=== PATIENT | female | born 1955 | race Caucasian/White ===

== ENCOUNTER 2016-09-16 16:33 | Emergency (ER) | payer MEDICAID ==
[2016-09-16] MEDS ORDERED: IBUPROFEN 600 MG TABLET PO ONE (17:18)
--- NOTE | 2016-09-16 17:18 | ER Document Report ---
ED Medical Screen (RME) - General Chief Complaint: High Blood Sugar Stated Complaint: WEAKNESS Mode of Arrival: Ambulatory Information source: Patient Notes: Patient is complaining of high blood sugar for the past 4 days. She states today she started passing out and endorses LOC x3 episodes today. Her meters have been reading "HIGH." She would give herself Humalog on a sliding scale and 40 U of Lantus in the morning but she is still unable to get her sugars under control. She states she has n't had much to eat or drink anything for the past few days. Endorses nausea, decreased energy and generalized weakness but denies fever, chills, vomiting, diarrhea. TRAVEL OUTSIDE OF THE [place] IN LAST 30 DAYS: No - Related Data Allergies/Adverse Reactions: No Known Drug Allergies Allergy (Mild, Verified 09/16/16 16:51) Past Medical History - Social History Chew tobacco use (# tins/day): No Frequency of alcohol use: None Drug Abuse: None Family history: None - pt adopted - Past Medical History Cardiac Medical History: Denies: Hx Congestive Heart Failure, Hx DVT, Hx Heart Attack, Hx Hypercholesterolemia, Hx Hypertension, Hx Pulmonary Embolism Pulmonary Medical History: Reports: Hx Bronchitis, Hx COPD, Hx Pneumonia Neurological Medical History: Reports: Hx Migraine Endocrine Medical History: Reports: Hx Diabetes Mellitus Type 1, Hx Diabetes Mellitus Type 2. Denies: Hx Hyperthyroidism, Hx Hypothyroidism Malignancy Medical History: Reports: Hx Ovarian Cancer, Hx Skin Cancer GI Medical History: Reports: Hx Gastroesophageal Reflux Disease, Hx Ulcer. Denies: Hx Cirrhosis, Hx Hepatitis Musculoskeltal Medical History: Reports Hx Arthritis, Reports Hx Multiple Sclerosis, Reports Hx Musculoskeletal Deformity, Reports Hx Musculoskeletal Trauma Skin Medical History: Reports Hx Psoriasis Psychiatric Medical History: Reports: Hx Anxiety, Hx Depression - denies homicidal/suicidal ideation Traumatic Medical History: Reports: Hx Fractures - Bilateral humerus Infectious Medical History: Reports: Hx C-Diff. Denies: Hx Hepatitis Past Surgical History: Reports: Hx Genitourinary Surgery - Bladder, Hx Orthopedic Surgery - Right wrist, Hx Tubal Ligation - Immunizations Immunizations up to date: Yes Hx Diphtheria, Pertussis, Tetanus Vaccination: Yes Review of Systems - Review of Systems Constitutional: See HPI Gastrointestinal: See HPI Physical Exam - Vital signs Vitals: Temp Pulse Resp BP Pulse Ox 98.2 F 130 H 24 H 117/78 98 09/16/16 16:44 01/02/17 16:44 09/16/16 16:44 09/16/16 16:44 09/16/16 16:44 - Notes Notes: General: alert and oriented, speaking in full sentences. No respiratory distress. Course - Re-evaluation Re-evalutation: 09/16/16 17:17 Accucheck at 1655 read "HIGH" Ordered labs. Patient remains alert and oriented. - Vital Signs Vital signs: Temp Pulse Resp BP Pulse Ox 98.2 F 130 H 24 H 117/78 98 09/16/16 16:44 09/16/16 16:44 09/16/16 16:44 09/16/16 16:44 09/16/16 16:44
[2016-09-16 18:35] LABS: ALANINE AMINOTRANSFERASE 34 U/L (9-52); ALBUMIN 4.6 g/dL (3.5-5.0); ALKALINE PHOSPHATASE 193 U/L (38-126); ANION GAP 18 (5-19); ASPARTATE AMINO TRANSFERASE 20 U/L (14-36); BILIRUBIN,TOTAL 0.6 mg/dL (0.2-1.3); BLOOD UREA NITROGEN 24 mg/dL (7-20); CALCIUM 10.6 mg/dL (8.4-10.2); CARBON DIOXIDE 22 mmol/L (22-30); CHLORIDE 88 mmol/L (98-107); CREATININE RESULT 0.69 mg/dL (0.52-1.25); TOTAL PROTEIN 8.1 g/dL (6.3-8.2)
[2016-09-16 18:42] LABS: ABSOLUTE BASOPHILS # (AUTO) 0.1 10^3/uL (0.0-0.2); ABSOLUTE EOSINOPHILS # (AUTO) 0.1 10^3/uL (0.0-0.6); ABSOLUTE LYMPHOCYTES (AUTO) 3.2 10^3/uL (0.5-4.7); ABSOLUTE MONOCYTES (AUTO) 1.1 10^3/uL (0.1-1.4); ABSOLUTE NEUT (AUTO) 6.8 10^3/uL (1.7-8.2); BASOPHILS % (AUTO) 0.8 % (0-2); EOSINOPHILS % (AUTO) 1.1 % (0-6); HEMATOCRIT 47.3 % (36.0-47.0); HEMOGLOBIN 14.7 g/dL (12.0-15.5); HGB HCT DIFFERENCE -3.2; LYMPHOCYTES % (AUTO) 28.2 % (13-45); MEAN CORPUSCULAR HEMOGLOBIN 25.6 pg (27.0-33.4); MEAN CORPUSCULAR HGB CONC 31.2 g/dL (32.0-36.0); MEAN CORPUSCULAR VOLUME 82 fl (80-97); MONOCYTES % (AUTO) 9.9 % (3-13); RED BLOOD COUNT 5.76 10^6/uL (3.72-5.28); RED CELL DISTRIBUTION WIDTH 17.7 % (11.5-14.0); WHITE BLOOD COUNT 11.3 10^3/uL (4.0-10.5)
[2016-09-16 18:44] LABS: GLUCOSE 697 mg/dL (75-110)
[2016-09-16 19:00] LABS: APPEARANCE,URINE CLEAR; BILIRUBIN,URINE NEGATIVE (NEGATIVE); GLUCOSE, URINE >=500 mg/dL (NEGATIVE); KETONES,URINE NEGATIVE (NEGATIVE); LEUKOCYTE ESTERASE,URINE NEGATIVE (NEGATIVE); NITRITE,URINE NEGATIVE (NEGATIVE); PROTEIN,URINE NEGATIVE (NEGATIVE); URINE SPECIFIC GRAVITY 1.029; UROBILINOGEN,URINE NEGATIVE mg/dL (<2.0)
[2016-09-16] MEDS ORDERED: NORMAL SALINE 1000 ML 1,000 ML IV ONE ×2 (19:20)
--- NOTE | 2016-09-16 19:25 | ER Document Report ---
ED General - General Chief Complaint: High Blood Sugar Stated Complaint: WEAKNESS Time seen by provider: 19:20 Mode of Arrival: Ambulatory Notes: Is a 60-year-old female that comes emergency department for chief complaint of feeling lightheaded and having no appetite for about 4 days, she states she is a type II diabetic insulin-dependent and is taking her medications, states that she has had blurry vision in fallen to the ground on 2 occasions today, she denies any head injury, she states she remembers the events. She denies fever, reports generalized mild abdominal pain, she denies cough or shortness of breath , denies chest pain. She reports intermittent diarrhea, has struggled in the past for C. difficile colitis. Patient states she took 20 units of regular insulin before she came. TRAVEL OUTSIDE OF THE [place] IN LAST 30 DAYS: No - Related Data Allergies/Adverse Reactions: No Known Drug Allergies Allergy (Mild, Verified 09/16/16 16:51) Past Medical History - General Information source: Patient - Social History Smoking Status: Never Smoker Chew tobacco use (# tins/day): No Frequency of alcohol use: None Drug Abuse: None Lives with: Alone Family History: Reviewed & Not Pertinent Patient has suicidal ideation: No Patient has homicidal ideation: No - Past Medical History Cardiac Medical History: Denies: Hx Congestive Heart Failure, Hx DVT, Hx Heart Attack, Hx Hypercholesterolemia, Hx Hypertension, Hx Pulmonary Embolism Pulmonary Medical History: Reports: Hx Bronchitis, Hx COPD, Hx Pneumonia Neurological Medical History: Reports: Hx Migraine Endocrine Medical History: Reports: Hx Diabetes Mellitus Type 1, Hx Diabetes Mellitus Type 2. Denies: Hx Hyperthyroidism, Hx Hypothyroidism Malignancy Medical History: Reports: Hx Ovarian Cancer, Hx Skin Cancer GI Medical History: Reports: Hx Gastroesophageal Reflux Disease, Hx Ulcer. Denies: Hx Cirrhosis, Hx Hepatitis Musculoskeltal Medical History: Reports Hx Arthritis, Reports Hx Multiple Sclerosis, Reports Hx Musculoskeletal Deformity, Reports Hx Musculoskeletal Trauma Skin Medical History: Reports Hx Psoriasis Psychiatric Medical History: Reports: Hx Anxiety, Hx Depression - denies homicidal/suicidal ideation Traumatic Medical History: Reports: Hx Fractures - Bilateral humerus Infectious Medical History: Reports: Hx C-Diff. Denies: Hx Hepatitis Past Surgical History: Reports: Hx Genitourinary Surgery - Bladder, Hx Orthopedic Surgery - Right wrist, Hx Tubal Ligation - Immunizations Immunizations up to date: Yes Hx Diphtheria, Pertussis, Tetanus Vaccination: Yes Hx Pneumococcal Vaccination: 06/15/13 Review of Systems - Review of Systems Constitutional: No symptoms reported EENT: No symptoms reported Cardiovascular: No symptoms reported Respiratory: No symptoms reported Gastrointestinal: See HPI Genitourinary: No symptoms reported Female Genitourinary: No symptoms reported Musculoskeletal: No symptoms reported Skin: No symptoms reported Hematologic/Lymphatic: No symptoms reported Neurological/Psychological: See HPI Physical Exam - Vital signs Vitals: Temp Pulse Resp BP Pulse Ox 98.2 F 130 H 24 H 117/78 98 09/16/16 16:44 09/16/16 16:44 09/16/16 16:44 09/16/16 16:44 09/16/16 16:44 Interpretation: Normal - General General appearance: Appears well, Alert In distress: None - HEENT Head: Normocephalic, Atraumatic Eyes: Normal Conjunctiva: Normal Extraocular movements intact: Yes Eyelashes: Normal Pupils: PERRL Nasal: Normal Mouth/Lips: Normal Mucous membranes: Normal Pharynx: Normal Neck: Normal - Respiratory Respiratory status: No respiratory distress Chest status: Nontender Breath sounds: Normal. No: Decreased air movement, Wheezing Chest palpation: Normal - Cardiovascular Rhythm: Regular, Tachycardia Heart sounds: Normal auscultation, S1 appreciated, S2 appreciated Murmur: No - Abdominal Inspection: Normal Distension: No distension Bowel sounds: Normal Tenderness: Nontender. No: Tender, Guarding Organomegaly: No organomegaly - Back Back: Normal, Nontender. 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 Soft benign abdomen. CBC unremarkable. CMP shows hyperglycemia at 697, however bicarbonate and anion gap both normal, no ketones in the urine, patient reports she is given herself 20 units of regular insulin 10 minutes before arrival. As a result patient was given 2 L fluid boluses, afterwards tachycardia resolved, glucose quickly downtrending, patient states she feels great. Patient is now asking to leave, states she has a ride here and she is unwilling to stay any longer. Patient was given lidocaine patch for a muscle pain in her mid upper back, she requests more of these, patient will also be given nausea medication, I discussed return precautions, patient states she will take her insulin at home and return for any concerning symptoms. 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 Please return to the emergency department for any concerning or worsening symptoms. Prescriptions: Lidocaine [Lidoderm 5% (700 mg) Transdermal Patch] 1 patch TP DAILY #30 adh..patch Ondansetron [Zofran Odt 4 mg Tablet] 1 - 2 tab PO Q4H PRN #15 tab.rapdis PRN Reason: For Nausea/Vomiting Referrals: GIUSEPPE WHITE MD [Primary Care Provider] - Follow up as needed
[2016-09-16] MEDS ORDERED: INSULIN REG, HUMAN 100 UNIT/ML 3 ML VIAL (PYX) SUBCUT ONE (19:29)
[2016-09-16] MEDS ORDERED: LIDOCAINE 5% (700 MG) TRANSDERMAL ADH..PATCH TP ONE (19:31)
[2016-09-16 21:55] VITALS: BP 115/79
== END 2016-09-16 21:50 | disposition home or self-care (01) ==
LOC: ER 16:33
DX: E11.65 Type 2 diabetes mellitus with hyperglycemia (principal); R42 Dizziness and giddiness; R53.1 Weakness; R19.7 Diarrhea, unspecified; H53.8 Other visual disturbances; G35 Multiple sclerosis; J44.9 Chronic obstructive pulmonary disease, unspecified; Z79.4 Long term (current) use of insulin; Z85.43 Personal history of malignant neoplasm of ovary; Z85.828 Personal history of other malignant neoplasm of skin; Z98.51 Tubal ligation status
CPT/HCPCS: 99285; 96360; 36415; 82962; 85025; 80053; 81001; J3490 ×2; J7030

== ENCOUNTER → 2016-09-18 | Outpatient (CLI) | payer MEDICAID | LOC: RAD 16:13 | PROVIDERS: ATTEND Family Medicine | DX: M54.5 Low back pain (principal); M54.6 Pain in thoracic spine | CPT/HCPCS: 72070; 72110 ==

== ENCOUNTER 2016-10-21 15:28 | Inpatient (IN) | payer SELFPAY ==
[2016-10-21] MEDS ORDERED: ONDANSETRON 4 MG TAB.RAPDIS PO ONE (16:27)
[2016-10-21] MEDS ORDERED: NORMAL SALINE 1000 ML 1,000 ML IV ONE ×2 (16:27→18:11)
--- NOTE | 2016-10-21 16:29 | ER Document Report ---
Addendum entered and electronically signed by CAT DON NP 10/21/16 16:32 : Course - Re-evaluation Re-evalutation: 10/21/16 16:31 extension service specialist in charge advised of pt status - Vital Signs Vital signs: Temp Pulse Resp BP Pulse Ox 97.3 F 125 H 20 154/110 H 100 10/21/16 16:12 10/21/16 16:12 10/21/16 16:12 10/21/16 16:12 10/21/16 16:12 Original Note: ED Medical Screen (RME) - General Stated Complaint: BLOOD SUGAR PROBLEM Mode of Arrival: Wheelchair Information source: Patient Notes: Patient reports that blood sugar has been reading high for the past several days. Patient also reports abdominal pain. Patient complains of nausea and vomiting. Patient denies any fever. Accu check in triage reads "Hi" hx: Diabetes I have greeted and performed a rapid initial assessment of this patient. A comprehensive ED assessment and evaluation of the patient, analysis of test results and completion of the medical decision making process will be conducted by additional ED providers. TRAVEL OUTSIDE OF THE [place] IN LAST 30 DAYS: No - Related Data Allergies/Adverse Reactions: No Known Drug Allergies Allergy (Mild, Verified 09/16/16 16:51) Past Medical History - Social History Family history: None - pt adopted - Past Medical History Cardiac Medical History: Denies: Hx Congestive Heart Failure, Hx DVT, Hx Heart Attack, Hx Hypercholesterolemia, Hx Hypertension, Hx Pulmonary Embolism Pulmonary Medical History: Reports: Hx Bronchitis, Hx COPD, Hx Pneumonia Neurological Medical History: Reports: Hx Migraine Endocrine Medical History: Reports: Hx Diabetes Mellitus Type 1, Hx Diabetes Mellitus Type 2. Denies: Hx Hyperthyroidism, Hx Hypothyroidism Malignancy Medical History: Reports: Hx Ovarian Cancer, Hx Skin Cancer GI Medical History: Reports: Hx Gastroesophageal Reflux Disease, Hx Ulcer. Denies: Hx Cirrhosis, Hx Hepatitis Musculoskeltal Medical History: Reports Hx Arthritis, Reports Hx Multiple Sclerosis, Reports Hx Musculoskeletal Deformity, Reports Hx Musculoskeletal Trauma Skin Medical History: Reports Hx Psoriasis Psychiatric Medical History: Reports: Hx Anxiety, Hx Depression - denies homicidal/suicidal ideation Traumatic Medical History: Reports: Hx Fractures - Bilateral humerus Infectious Medical History: Reports: Hx C-Diff. Denies: Hx Hepatitis Past Surgical History: Reports: Hx Genitourinary Surgery - Bladder, Hx Orthopedic Surgery - Right wrist, Hx Tubal Ligation - Immunizations Immunizations up to date: Yes Hx Diphtheria, Pertussis, Tetanus Vaccination: Yes Physical Exam - Vital signs Vitals: Temp Pulse Resp BP Pulse Ox 97.3 F 125 H 20 154/110 H 100 10/21/16 16:12 10/21/16 16:12 10/21/16 16:12 10/21/16 16:12 10/21/16 16:12 - Cardiovascular Rhythm: Tachycardia Heart sounds: S1 appreciated, S2 appreciated Course - Vital Signs Vital signs: Temp Pulse Resp BP Pulse Ox 97.3 F 125 H 20 154/110 H 100 10/21/16 16:12 10/21/16 16:12 10/21/16 16:12 10/21/16 16:12 10/21/16 16:12
[2016-10-21 17:17] LABS: VENOUS BLOOD BASE EXCESS -6.7 mmol/L; VENOUS BLOOD HCO3 18.5 mmol/L (20-32); VENOUS BLOOD PCO2 36.2 mmHg (35-63); VENOUS BLOOD PH 7.33 (7.30-7.42)
[2016-10-21 17:21] LABS: ABSOLUTE LYMPHOCYTES (AUTO) 1.2 10^3/uL (0.5-4.7); ABSOLUTE MONOCYTES (AUTO) 0.6 10^3/uL (0.1-1.4); ABSOLUTE NEUT (AUTO) 6.3 10^3/uL (1.7-8.2); BASOPHILS % (AUTO) 0.2 % (0-2); EOSINOPHILS % (AUTO) 0.4 % (0-6); HEMATOCRIT 43.7 % (36.0-47.0); HEMOGLOBIN 13.5 g/dL (12.0-15.5); HGB HCT DIFFERENCE -3.2; LYMPHOCYTES % (AUTO) 15.2 % (13-45); MEAN CORPUSCULAR VOLUME 84 fl (80-97); MONOCYTES % (AUTO) 7.6 % (3-13); RED BLOOD COUNT 5.21 10^6/uL (3.72-5.28); RED CELL DISTRIBUTION WIDTH 17.8 % (11.5-14.0); SEGMENTED NEUTROPHILS % (AUTO) 76.6 % (42-78); WHITE BLOOD COUNT 8.2 10^3/uL (4.0-10.5)
[2016-10-21 17:23] LABS: APPEARANCE,URINE CLEAR; BILIRUBIN,URINE NEGATIVE (NEGATIVE); GLUCOSE, URINE >=500 mg/dL (NEGATIVE); KETONES,URINE NEGATIVE (NEGATIVE); LEUKOCYTE ESTERASE,URINE NEGATIVE (NEGATIVE); NITRITE,URINE NEGATIVE (NEGATIVE); PROTEIN,URINE NEGATIVE (NEGATIVE); URINE SPECIFIC GRAVITY 1.028; UROBILINOGEN,URINE NEGATIVE mg/dL (<2.0)
[2016-10-21 17:29] LABS: ALANINE AMINOTRANSFERASE 22 U/L (9-52); ALBUMIN 4.1 g/dL (3.5-5.0); ALKALINE PHOSPHATASE 161 U/L (38-126); ANION GAP 16 (5-19); ASPARTATE AMINO TRANSFERASE 17 U/L (14-36); BILIRUBIN,TOTAL 0.5 mg/dL (0.2-1.3); BLOOD UREA NITROGEN 9 mg/dL (7-20); CALCIUM 9.8 mg/dL (8.4-10.2); CARBON DIOXIDE 19 mmol/L (22-30); CHLORIDE 94 mmol/L (98-107); LIPASE 42.1 U/L (23-300); POTASSIUM 4.4 mmol/L (3.6-5.0); TOTAL PROTEIN 7.5 g/dL (6.3-8.2)
[2016-10-21 17:40] LABS: CREATINE KINASE MB 0.38 ng/mL (<4.55)
[2016-10-21 17:43] LABS: TROPONIN I < 0.012 ng/mL
[2016-10-21 17:52] LABS: CREATINE KINASE < 20 U/L (30-135)
[2016-10-21 18:01] LABS: GLUCOSE 710 mg/dL (75-110)
[2016-10-21] MEDS ORDERED: INSULIN REG, HUMAN 100 UNIT/ML 3 ML VIAL (PYX) SUBCUT ONE (18:11)
[2016-10-21] MEDS ORDERED: NORMAL SALINE 1000 ML 1,000 ML IV PRN ×2 (18:11→18:16)
--- NOTE | 2016-10-21 18:13 | ER Document Report ---
ED General - General Chief Complaint: High Blood Sugar Stated Complaint: BLOOD SUGAR PROBLEM Mode of Arrival: Wheelchair Information source: Patient Notes: 60-year-old diabetic female history of hyperosmolar state as well as DKA presents with a blood sugar of 700+. Patient notes she has been vomiting all day. Denies any fevers or chills admits to nausea admits to generalized body aches Patient has had multiple similar episodes in the past states she is taking her medications as prescribed TRAVEL OUTSIDE OF THE [place] IN LAST 30 DAYS: No - HPI Onset: Just prior to arrival Onset/Duration: Sudden Quality of pain: Achy Severity: Mild Pain Level: 1 Associated symptoms: Body/muscle aches, Nausea, Vomiting Exacerbated by: Denies Relieved by: Denies Similar symptoms previously: Yes Recently seen / treated by doctor: Yes - Related Data Allergies/Adverse Reactions: No Known Drug Allergies Allergy (Mild, Verified 09/16/16 16:51) Home Medications: Current Home Medications Acidoph/L.bulg/Bif.b/S.thermop [Bacid Caplet] 1 each PO BID 10/21/16 [History] Clobetasol Propionate/Emoll [Clobetasol Emollient 0.05% Crm] 1 applic TP BID 03/01 [History] Etanercept [Enbrel] 50 mg SQ FR@1000 10/21/16 [History] Ferrous Sulfate [Iron] 325 mg PO DAILY 10/21/16 [History] Insulin Glargine,Hum.rec.anlog [Lantus Insulin Inj 300 Unit/3 ml Pen] 35 unit SUBCUT QAM 10/21/16 [History] Insulin Lispro [Humalog Insulin 100 Unit/1 ml 3 ml Vial] 0 unit SUBCUT AC [History] Ipratropium/Albuterol Sulfate [Combivent Respimat 4 gm Mdi] 1 puff IH Q12 [History] Montelukast Sodium [Singulair 10 mg Tablet] 10 mg PO DAILY 10/21/16 [History] Omeprazole Magnesium [Prilosec Otc] 20 mg PO BID 10/21/16 [History] Ondansetron [Zofran Odt 4 mg Tablet] 1 tab PO Q4HP PRN 10/21/16 [History] Oxycodone HCl/Acetaminophen [Percocet 5-325 mg Tablet] 1 tab PO Q4HP PRN [History] Past Medical History - General Information source: Patient - Social History Smoking Status: Current Every Day Smoker Cigarette use (# per day): No Chew tobacco use (# tins/day): No Smoking Education Provided: No Family History: Reviewed & Not Pertinent Patient has suicidal ideation: No Patient has homicidal ideation: No - Past Medical History Cardiac Medical History: Denies: Hx Congestive Heart Failure, Hx DVT, Hx Heart Attack, Hx Hypercholesterolemia, Hx Hypertension, Hx Pulmonary Embolism Pulmonary Medical History: Reports: Hx Bronchitis, Hx COPD, Hx Pneumonia Neurological Medical History: Reports: Hx Migraine Endocrine Medical History: Reports: Hx Diabetes Mellitus Type 1, Hx Diabetes Mellitus Type 2. Denies: Hx Hyperthyroidism, Hx Hypothyroidism Renal/ Medical History: Denies: Hx Peritoneal Dialysis Malignancy Medical History: Reports: Hx Ovarian Cancer, Hx Skin Cancer GI Medical History: Reports: Hx Gastroesophageal Reflux Disease, Hx Ulcer. Denies: Hx Cirrhosis, Hx Hepatitis Musculoskeltal Medical History: Reports Hx Arthritis, Reports Hx Multiple Sclerosis, Reports Hx Musculoskeletal Deformity, Reports Hx Musculoskeletal Trauma Skin Medical History: Reports Hx Psoriasis Psychiatric Medical History: Reports: Hx Anxiety, Hx Depression - denies homicidal/suicidal ideation Traumatic Medical History: Reports: Hx Fractures - Bilateral humerus Infectious Medical History: Reports: Hx C-Diff. Denies: Hx Hepatitis Past Surgical History: Reports: Hx Genitourinary Surgery - Bladder, Hx Orthopedic Surgery - Right wrist, Hx Tubal Ligation - Immunizations Immunizations up to date: Yes Hx Diphtheria, Pertussis, Tetanus Vaccination: Yes Hx Pneumococcal Vaccination: 06/15/13 Review of Systems - Review of Systems Notes: REVIEW OF SYSTEMS: CONSTITUTIONAL : Denies fever, chills, or sweats. Denies recent illness. EENT: Denies eye, ear, throat, or mouth pain or symptoms. Denies nasal or sinus congestion or discharge. Denies throat, tongue, or mouth swelling or difficulty swallowing. CARDIOVASCULAR: Denies chest pain. Denies palpitations or racing or irregular heart beat. Denies ankle edema. RESPIRATORY: Denies cough, cold, or chest congestion. Denies shortness of breath, difficulty breathing, or wheezing. GASTROINTESTINAL: Admits to nausea vomiting GENITOURINARY: Denies difficulty urinating, painful urination, burning, frequency, blood in urine, or discharge. FEMALE GENITOURINARY: Denies vaginal bleeding, heavy or abnormal periods, irregular periods. Denies vaginal discharge or odor. MUSCULOSKELETAL: Denies back or neck pain or stiffness. Denies joint pain or swelling. SKIN: Denies rash, lesions or sores. HEMATOLOGIC : Denies easy bruising or bleeding. LYMPHATIC: Denies swollen, enlarged glands. NEUROLOGICAL: Denies confusion or altered mental status. Denies passing out or loss of consciousness. Denies dizziness or lightheadedness. Denies headache. Denies weakness or paralysis or loss of use of either side. Denies problems with gait or speech. Denies sensory loss, numbness, or tingling. Denies seizures. PSYCHIATRIC: Denies anxiety or stress. Denies depression, suicidal ideation, or homicidal ideation. ALL OTHER SYSTEMS REVIEWED AND NEGATIVE. Dictation was performed using [id number] voice recognition software PHYSICAL EXAMINATION: GENERAL: Ill-appearing female mild acute distress HEAD: Atraumatic, normocephalic. EYES: Pupils equal round and reactive to light, extraocular movements intact, conjunctiva are normal. ENT: Nares patent, oropharynx clear without exudates. Moist mucous membranes. NECK: Normal range of motion, supple without lymphadenopathy LUNGS: Breath sounds clear to auscultation bilaterally and equal. No wheezes rales or rhonchi. HEART: Regular rate and rhythm without murmurs ABDOMEN: Soft, nontender, nondistended abdomen. No guarding, no rebound. No masses appreciated. Female : deferred Musculoskeletal: Normal range of motion, no pitting or edema. No cyanosis. NEUROLOGICAL: Cranial nerves grossly intact. Normal speech, normal gait. Normal sensory, motor exams PSYCH: Normal mood, normal affect. SKIN: Warm, Dry, normal turgor, no rashes or lesions noted. Physical Exam - Vital signs Vitals: Temp Pulse Resp BP Pulse Ox 97.3 F 125 H 20 154/110 H 100 10/21/16 16:12 10/21/16 16:12 10/21/16 16:12 10/21/16 16:12 10/21/16 16:12 Course - Re-evaluation Re-evalutation: 10/21/16 21:32 Initial blood sugar was 710, patient was given 30 units of insulin IV fluids, I will admit the patient to the hospitalist service given history of DKA and hyperosmolar state - Vital Signs Vital signs: Temp Pulse Resp BP Pulse Ox 97.3 F 125 H 14 154/110 H 100 10/21/16 16:12 10/21/16 16:12 10/21/16 20:14 10/21/16 16:12 10/21/16 20:14 - Laboratory Result Diagrams: 10/21/16 16:55 10/21/16 16:55 Laboratory results interpreted by me: 10/21/16 10/21/16 10/21/16 16:55 16:55 16:55 MCH 26.0 L MCHC 31.0 L RDW 17.8 H VBG HCO3 Sodium 129.0 L Chloride 94 L Carbon Dioxide 19 L Creatinine 0.50 L Glucose 710 H* Alkaline Phosphatase 161 H Creatine Kinase < 20 L Urine Glucose (UA) >=500 H 10/21/16 16:55 MCH MCHC RDW VBG HCO3 18.5 L Sodium Chloride Carbon Dioxide Creatinine Glucose Alkaline Phosphatase Creatine Kinase Urine Glucose (UA) Critical Care Note - Critical Care Note Total time excluding time spent on procedures (mins): 34 Comments: 34 minutes of critical care time spent in direct contact evaluating and reevaluating the patient, treating symptoms, reviewing labs and studies and speaking with family and consultants excluding any procedures Discharge - Discharge Clinical Impression: Hyperosmolar non-ketotic state in patient with type 2 diabetes mellitus, Tachycardia Nausea & vomiting Qualifiers: Vomiting type: unspecified Vomiting Intractability: non-intractable Qualified Code(s): R11.2 - Nausea with vomiting, unspecified Hypertension Qualifiers: Hypertension type: essential hypertension Qualified Code(s): I10 - Essential ( primary) hypertension Condition: Stable Disposition: ADMITTED INPATIENT Admitting Provider: Hospitalist Unit Admitted: Telemetry
[2016-10-21] MEDS ORDERED: ONDANSETRON HCL INJ/PF 4 MG/2 ML SDV IV ONE ×3 (18:15→22:15)
[2016-10-21] MEDS ORDERED: ACETAMINOPHEN 325 MG TABLET PO PRN (18:16)
[2016-10-21] MEDS ORDERED: ONDANSETRON HCL INJ/PF 4 MG/2 ML SDV IV PRN (18:16)
[2016-10-21] MEDS ORDERED: MORPHINE SULFATE 10 MG/ML INJ IV ONE (18:16)
[2016-10-21] MEDS ORDERED: KETOROLAC TROMETHAMINE INJ/PF 30 MG/1 ML SDV IV ONE ×2 (18:17→22:15)
--- NOTE | 2016-10-21 18:18 | EKG REPORT ---
SEVERITY:- ABNORMAL ECG - SINUS TACHYCARDIA RIGHT ATRIAL ABNORMALITY : Confirmed by: Luis Alberto Walls MD 21-Oct-2016 18:17:03
[2016-10-21] MEDS ORDERED: INSULIN LISPRO 100 UNIT/ML 3 ML VIAL SUBCUT PRN (18:30)
[2016-10-21] MEDS ORDERED: DEXTROSE 40% GEL 15 GM TUBE PO PRN ×2 (18:30)
[2016-10-21] MEDS ORDERED: GLUCAGON,HUMAN RECOMB 1 MG INJ IM PRN (18:30)
[2016-10-21] MEDS ORDERED: DEXTROSE 50%-WATER 25 GM/50 ML DISP.SYRIN IV PRN ×2 (18:30)
[2016-10-21] MEDS ORDERED: MINERAL OIL ENEMA 133 ML PR ONE (19:04)
[2016-10-21] MEDS ORDERED: LACTULOSE SYRUP 20 GM/30 ML UDCUP PO ONE (21:30)
[2016-10-21] MEDS ORDERED: LANSOPRAZOLE 15 MG TAB.RAP.DR PO SCH (22:00)
[2016-10-21] MEDS ORDERED: METOCLOPRAMIDE HCL INJ/PF 10 MG/2 ML SDV IV SCH (22:00)
[2016-10-21] MEDS ORDERED: LACTOBACILLUS ACIDOPHILUS 250 MG TAB PO SCH (22:00)
[2016-10-21] MEDS ORDERED: PANTOPRAZOLE SODIUM 40 MG VIAL IV SCH (22:00)
[2016-10-22] MEDS ORDERED: IPRATROPIUM/ALBUTEROL 120 PUFF/4 GM MDI IH SCH
[2016-10-22] MEDS ORDERED: MORPHINE SULFATE 10 MG/ML INJ IV PRN (04:44)
[2016-10-22] MEDS ORDERED: MAGNESIUM CITRATE 296 ML BOTTLE PO ONE (04:46)
--- NOTE | 2016-10-22 04:58 | PDOC H&P ---
History of Present Illness Admission Date/PCP: 10/21/16 18:18 [facility] History of Present Illness: JAMES MORRIS is a 60 year old female with a history of chronic back pain, opiate dependence, diabetes mellitus with multiple admissions for HHNS, DKA, and abdominal pain related to chronic constipation and C. difficile who presents to the emergency department with a couple of days of high blood sugar on her meter. She reports she's been taking her insulin but is just been consistently reading high. Patient reports that She has not had a bowel movement for several days to weeks. She does report some dysuria. She is referred for dental service for blood sugar issues. Past Medical History Cardiac Medical History: Denies: Congestive Heart Failure, DVT, Myocardial Infarction, Hyperlipidema, Hypertension, Pulmonary Embolism Pulmonary Medical History: Reports: Bronchitis, Chronic Obstructive Pulmonary Disease (COPD), Pneumonia Neurological Medical History: Reports: Migraine Endocrine Medical History: Reports: Diabetes Mellitus Type 1, Diabetes Mellitus Type 2 Denies: Hyperthyroidism, Hypothyroidism Malignancy Medical History: Reports: Ovarian Cancer, Skin Cancer GI Medical History: Reports: Gastroesophageal Reflux Disease Denies: Cirrhosis, Hepatitis Musculoskeltal Medical History: Reports: Arthritis Skin Medical History: Reports: Psoriasis Psychiatric Medical History: Reports: Depression - denies homicidal/suicidal ideation Hematology: Reports: Anemia Denies: Hemophilia, Sickle Cell Disease Infectious Medical History: Reports: Clostridium Difficile Past Surgical History Past Surgical History: Reports: Orthopedic Surgery - Right wrist, Tubal Ligation Denies: Amputation Social History Smoking Status: Current Every Day Smoker Frequency of Alcohol Use: None Hx Recreational Drug Use: No Drugs: None Hx Prescription Drug Abuse: No - Advance Directive Resuscitation Status: Full Code Surrogate healthcare decision maker:: Crystal, daughter Family History Family History: Reviewed & Not Pertinent Parental Family History Reviewed: Yes - patient grew up in orphanage Children Family History Reviewed: Yes Sibling(s) Family History Reviewed.: Yes Medication/Allergy Home Medications: Acidoph/L.bulg/Bif.b/S.thermop [Bacid Caplet] 1 each PO BID 10/21/16 Clobetasol Propionate/Emoll [Clobetasol Emollient 0.05% Crm] 1 applic TP BID 03/01 Etanercept [Enbrel] 50 mg SQ FR@1000 10/21/16 Ferrous Sulfate [Iron] 325 mg PO DAILY 10/21/16 Insulin Glargine,Hum.rec.anlog [Lantus Insulin Inj 300 Unit/3 ml Pen] 35 unit SUBCUT QAM 10/21/16 Insulin Lispro [Humalog Insulin 100 Unit/1 ml 3 ml Vial] 0 unit SUBCUT AC Ipratropium/Albuterol Sulfate [Combivent Respimat 4 gm Mdi] 1 puff IH Q12 Montelukast Sodium [Singulair 10 mg Tablet] 10 mg PO DAILY 10/21/16 Omeprazole Magnesium [Prilosec Otc] 20 mg PO BID 10/21/16 Ondansetron [Zofran Odt 4 mg Tablet] 1 tab PO Q4HP PRN 10/21/16 Oxycodone HCl/Acetaminophen [Percocet 5-325 mg Tablet] 1 tab PO Q4HP PRN Allergies/Adverse Reactions: No Known Drug Allergies Allergy (Mild, Verified 09/16/16 16:51) Review of Systems Constitutional: PRESENT: chills. ABSENT: fever(s), headache(s), weight gain, weight loss Eyes: ABSENT: visual disturbances Ears: ABSENT: hearing changes Cardiovascular: ABSENT: chest pain, dyspnea on exertion, edema, orthropnea, palpitations Respiratory: PRESENT: cough, sputum. ABSENT: dyspnea, hemoptysis Gastrointestinal: PRESENT: abdominal pain, constipation, nausea, vomiting. ABSENT: diarrhea, hematemesis, hematochezia, melena Genitourinary: ABSENT: dysuria, hematuria Musculoskeletal: PRESENT: back pain - Chronic. ABSENT: joint swelling Integumentary: PRESENT: rash - Chronic psoriasis. ABSENT: wounds Neurological: ABSENT: abnormal gait, abnormal speech, confusion, dizziness, focal weakness, syncope Psychiatric: ABSENT: anxiety, depression, homidical ideation, suicidal ideation Endocrine: ABSENT: cold intolerance, heat intolerance, polydipsia, polyuria Hematologic/Lymphatic: ABSENT: easy bleeding, easy bruising Physical Exam Vital Signs: Temp Pulse Resp BP Pulse Ox 97.3 F 125 H 19 143/81 H 98 10/21/16 16:12 10/21/16 16:12 10/21/16 22:01 10/21/16 22:00 10/21/16 22:01 General appearance: PRESENT: no acute distress, well-developed, well-nourished Head exam: PRESENT: atraumatic, normocephalic Eye exam: PRESENT: conjunctiva pink, EOMI, PERRLA. ABSENT: scleral icterus Ear exam: PRESENT: normal external ear exam Mouth exam: PRESENT: dry mucosa, tongue midline Neck exam: ABSENT: JVD, lymphadenopathy, thyromegaly, tracheal deviation Respiratory exam: PRESENT: clear to auscultation megan, prolonged expiratory phas , tachypnea, unlabored. ABSENT: crackles, rales, rhonchi, wheezes Cardiovascular exam: PRESENT: RRR, +S1, +S2. ABSENT: diastolic murmur, gallop, rubs, systolic murmur Pulses: PRESENT: normal dorsalis pedis pul Vascular exam: PRESENT: normal capillary refill GI/Abdominal exam: PRESENT: normal bowel sounds, soft, tenderness - Generalized tenderness, other - Pain out of proportion to physical examination. ABSENT: distended, firm, guarding, mass, organolmegaly, rebound, rigid Rectal exam: PRESENT: deferred Extremities exam: PRESENT: full ROM. ABSENT: calf tenderness, clubbing, pedal edema Neurological exam: PRESENT: alert, awake, oriented to person, oriented to place , oriented to time, oriented to situation, CN II-XII grossly intact. ABSENT: motor sensory deficit Psychiatric exam: PRESENT: appropriate affect, normal mood. ABSENT: homicidal ideation, suicidal ideation Skin exam: PRESENT: dry, intact, rash - Plaque-like rash on extensor surface hands and elbows, warm. ABSENT: cyanosis Results Laboratory Results: 10/21/16 22:57 Troponin I < 0.012 Impressions: KUB X-Ray 10/21/16 00:00 IMPRESSION: NO RADIOGRAPHIC EVIDENCE FOR ACUTE ABDOMINAL DISEASE. Assessment & Plan - Diagnosis (1) Constipation due to opioid therapy Is this a current diagnosis for this admission?: YesPlan: We'll give patient lactulose and mineral oil enema. Will give her magnesium citrate if this has no results. Obtain KUB to evaluate for obstructionis negative proceed with cathartics. (2) Hyperosmolar non-ketotic state in patient with type 2 diabetes mellitus Is this a current diagnosis for this admission?: YesPlan: Patient very mildly in injection as. Will begin IV fluids and patient has already received Lantus in the emergency department. Will check Accu-Cheks with sliding scale every 6 hours. Patient does not quite meet for this diagnosis for DKA. However could quickly go into either. (3) Psoriasis Is this a current diagnosis for this admission?: Yes (4) Abdominal pain Qualifiers: Abdominal location: generalized Qualified Code(s): R10.84 - Generalized abdominal pain Is this a current diagnosis for this admission?: YesPlan: Secondary constipation. Will check you a for possible UTI. (5) Anxiety Is this a current diagnosis for this admission?: Yes (6) COPD (chronic obstructive pulmonary disease) Qualifiers: COPD type: unspecified COPD Qualified Code(s): J44.9 - Chronic obstructive pulmonary disease, unspecified Is this a current diagnosis for this admission?: YesPlan: Place on Combivent. Encourage smoking cessation. (7) Tobacco use disorder Is this a current diagnosis for this admission?: YesPlan: Nicotine patch. Patient has been advised to stop smoking (8) Opiate dependence Qualifiers: Substance use status: uncomplicated Qualified Code(s): F11.20 - Opioid dependence, uncomplicated Is this a current diagnosis for this admission?: YesPlan: We'll give small amount of opiates. This is likely exacerbating patient's underlying issues. - Time Time Spent: 50 to 70 Minutes Medications reviewed and adjusted accordingly: Yes Anticipated discharge: Home Within: within 48 hours
[2016-10-22] MEDS ORDERED: FERROUS SULFATE 325 MG TABLET PO SCH ×2 (05:00→10:00)
[2016-10-22 05:23] LABS: ABSOLUTE EOSINOPHILS # (AUTO) 0.1 10^3/uL (0.0-0.6); ABSOLUTE LYMPHOCYTES (AUTO) 1.7 10^3/uL (0.5-4.7); ABSOLUTE MONOCYTES (AUTO) 0.6 10^3/uL (0.1-1.4); ABSOLUTE NEUT (AUTO) 2.6 10^3/uL (1.7-8.2); BASOPHILS % (AUTO) 0.8 % (0-2); EOSINOPHILS % (AUTO) 2.6 % (0-6); HEMATOCRIT 35.6 % (36.0-47.0); HEMOGLOBIN 11.6 g/dL (12.0-15.5); HGB HCT DIFFERENCE -0.8; LYMPHOCYTES % (AUTO) 34.5 % (13-45); MEAN CORPUSCULAR HGB CONC 32.5 g/dL (32.0-36.0); MONOCYTES % (AUTO) 11.4 % (3-13); RED BLOOD COUNT 4.44 10^6/uL (3.72-5.28); RED CELL DISTRIBUTION WIDTH 17.4 % (11.5-14.0); SEGMENTED NEUTROPHILS % (AUTO) 50.7 % (42-78)
[2016-10-22] MEDS ORDERED: NICOTINE 7 MG/24 HR PATCH.TD24 ONE (05:34)
[2016-10-22 05:39] LABS: MEAN CORPUSCULAR VOLUME 80 fl (80-97)
[2016-10-22] MEDS ORDERED: ENOXAPARIN SODIUM INJ 40 MG/0.4 ML DISP.SYRIN SUBCUT SCH (08:00)
[2016-10-22] MEDS ORDERED: INSULIN GLARGINE,HUM.REC.ANLOG 300 UNIT/3 ML INSULN.PEN SUBCUT SCH (08:00)
[2016-10-22 08:09] VITALS: BP 151/95
[2016-10-22] MEDS ORDERED: LIDOCAINE 5% (700 MG) TRANSDERMAL ADH..PATCH TP SCH (10:00)
[2016-10-22] MEDS ORDERED: MONTELUKAST SODIUM 10 MG TABLET PO SCH (10:00)
[2016-10-22] MEDS ORDERED: NICOTINE 7 MG/24 HR PATCH.TD24 TD SCH (10:00)
[2016-10-22] MEDS ORDERED: SENNOSIDES/DOCUSATE 8.6-50 MG 1 EACH TABLET PO SCH (10:00)
[2016-10-22] MEDS ORDERED: (PENDING PHARMACY ID) (Clobetasol Propionate/Emoll [Clobetasol Emollient 0.05% Crm] 1 APPL TP SCH (10:00)
[2016-10-22] MEDS ORDERED: LACTOBACILLUS ACIDOPHILUS 250 MG TAB PO SCH (10:00)
[2016-10-22] MEDS ORDERED: DOCUSATE SODIUM 100 MG CAPSULE PO SCH (10:00)
--- NOTE | 2016-10-22 18:04 | PDOC DISCHARGE SUMMARY ---
General - Admit/Disc Date/PCP Admission Date/Primary Care Provider: 10/21/16 18:18 [facility] WHITE MD Discharge Date: 10/22/16 - Discharge Diagnosis (1) Hyperosmolar non-ketotic state in patient with type 2 diabetes mellitus Is this a current diagnosis for this admission?: Yes (2) Chronic pain Is this a current diagnosis for this admission?: Yes (3) Constipation due to opioid therapy Is this a current diagnosis for this admission?: Yes (4) Hypertension Is this a current diagnosis for this admission?: Yes (5) Psoriasis Is this a current diagnosis for this admission?: Yes (6) COPD (chronic obstructive pulmonary disease) Is this a current diagnosis for this admission?: Yes (7) Tobacco use disorder Is this a current diagnosis for this admission?: Yes - Additional Information Resuscitation Status: Full Code Discharge Diet: Cardiac, Diabetic Discharge Activity: Activity As Tolerated Home Medications: Acidoph/L.bulg/Bif.b/S.thermop [Bacid Caplet] 1 each PO BID 10/21/16 Clobetasol Propionate/Emoll [Clobetasol Emollient 0.05% Crm] 1 applic TP BID 03/01 Etanercept [Enbrel] 50 mg SQ FR@1000 10/21/16 Ferrous Sulfate [Iron] 325 mg PO DAILY 10/21/16 Insulin Lispro [Humalog Insulin (Lispro) 100 unit/mL] 0 unit SUBCUT AC 10/21/16 Ipratropium/Albuterol Sulfate [Combivent Respimat 4 gm Mdi] 1 puff IH Q12 Montelukast Sodium [Singulair 10 mg Tablet] 10 mg PO DAILY 10/21/16 Omeprazole Magnesium [Prilosec Otc] 20 mg PO BID 10/21/16 Ondansetron [Zofran Odt 4 mg Tablet] 1 tab PO Q4HP PRN 10/21/16 Oxycodone HCl/Acetaminophen [Percocet 5-325 mg Tablet] 1 tab PO Q4HP PRN Docusate Sodium [Colace 100 mg Capsule] 100 mg PO BID #60 capsule 10/22/16 Insulin Glargine,Hum.rec.anlog [Lantus Insulin 100 Unit/mL] 45 unit SUBCUT QAM insuln.pen 10/22/16 Lidocaine [Lidoderm 5% (700 mg) Transdermal Patch] 1 patch TP DAILY adh..patch 10/22/16 History of Present Illness Patient complains of: Elevated blood glucose History of Present Illness: JAMES MORRIS is a 60 year old female presents to the emergency department with undetectably high blood glucose readings. She had associated abdominal pain. Hospital Course Hospital Course: Patient was admitted for profound hyperglycemia. Blood glucose was controlled within 24 hours. Hemoglobin A1c was greater than 14.0 indicating poor outpatient control. Patient's Lantus was increased from 35 units daily to 45 units daily. She is advised to follow-up primary care provider for reevaluation. Patient is counseled on smoking cessation. Physical Exam Vital Signs: Temp Pulse Resp BP Pulse Ox 97.3 F 125 H 11 L 151/95 H 99 10/21/16 16:12 10/21/16 16:12 10/22/16 08:01 10/22/16 08:00 10/22/16 08:01 GENERAL: No acute distress HEENT: Conjunctiva clear, nonicteric, moist mucous membranes, no JVD, midline trachea RESPIRATORY: Clear to auscultation bilaterally, no wheezes, no rhonchi CARDIAC: Regular rate and rhythm, no murmurs/gallops/rubs ABDOMEN: Soft, nondistended, nontender, positive bowel sounds, no rebound, no guarding EXTREMETIES: No edema, cyanosis, clubbing NEUROLOGIC: Alert, oriented to person/place/time, CN's grossly intact, no focal deficits SKIN: No rash, wounds PSYCH: Normal mood, normal affect Results Laboratory Results: 10/22/16 05:08 10/22/16 10/22/16 05:08 05:08 WBC 5.0 RBC 4.44 Hgb 11.6 L Hct 35.6 L MCV 80 D MCH 26.0 L MCHC 32.5 RDW 17.4 H Plt Count 142 L Seg Neutrophils % 50.7 Lymphocytes % 34.5 Monocytes % 11.4 Eosinophils % 2.6 Basophils % 0.8 Absolute Neutrophils 2.6 Absolute Lymphocytes 1.7 Absolute Monocytes 0.6 Absolute Eosinophils 0.1 Absolute Basophils 0.0 Magnesium 1.7 10/21/16 10/22/16 22:57 05:08 Troponin I < 0.012 < 0.012 Impressions: KUB X-Ray 10/21/16 00:00 IMPRESSION: NO RADIOGRAPHIC EVIDENCE FOR ACUTE ABDOMINAL DISEASE. Qualifiers PATEINT BEING DISCHARGED WITH ANY OF THE FOLLOWING DIAGNOSIS?: No Plan Discharge Plan: Follow-up PCP LUIS. Time Spent: Less than 30 Minutes
== END 2016-10-22 09:10 | disposition home or self-care (01) | DRG 639 ==
LOC: ER 15:28 → EH 18:18
PROVIDERS: ADMIT Internal Medicine; ATTEND Internal Medicine
DX: E11.00 Type 2 diabetes mellitus with hyperosmolarity without nonketotic hyperglycemic-hyperosmolar coma (NKHHC) (principal); K59.03 Drug induced constipation; T40.605A Adverse effect of unspecified narcotics, initial encounter; I10 Essential (primary) hypertension; J44.9 Chronic obstructive pulmonary disease, unspecified; M54.9 Dorsalgia, unspecified; G89.29 Other chronic pain; G43.909 Migraine, unspecified, not intractable, without status migrainosus; L40.9 Psoriasis, unspecified; K21.9 Gastro-esophageal reflux disease without esophagitis; F17.200 Nicotine dependence, unspecified, uncomplicated; Z79.891 Long term (current) use of opiate analgesic; Z98.51 Tubal ligation status; Z79.4 Long term (current) use of insulin; Z85.43 Personal history of malignant neoplasm of ovary; Z85.828 Personal history of other malignant neoplasm of skin
CPT/HCPCS: 36415; 74000; 80053; 81001; 82550; 82553; 82803; 82962; 83036; 83690; 83735; 84484; 85025; 93005; 93010; 99291; J1815; J1885; J2405; J3490; J7030

== ENCOUNTER → 2016-11-19 | Outpatient (CLI) | payer MEDICAID | LOC: OD 14:51 | PROVIDERS: ATTEND Family Medicine | DX: J20.9 Acute bronchitis, unspecified (principal) | CPT/HCPCS: 71020 ==

== ENCOUNTER 2016-12-14 17:53 | Inpatient (IN) | payer MEDICAID ==
[2016-12-14] MEDS ORDERED: ONDANSETRON HCL INJ/PF 4 MG/2 ML SDV IV ONE (18:49)
--- NOTE | 2016-12-14 18:51 | ER Document Report ---
Doctor's Note Notes: 12/14/16 18:49 61-year-old female diabetic who takes multiple blood sugar medications and has a history of DKA is in the past presents with high blood sugar nausea and generalized malaise. Patient has not vomited notes that she feels worse in the last time she was here that she was admitted for Patient's blood sugar is noted to be high General: Ill-appearing female in no respiratory distress Heart: Tachycardic I have greeted and performed a rapid initial assessment of this patient. A comprehensive ED assessment and evaluation of the patient, analysis of test results and completion of the medical decision making process will be conducted by additional ED providers.
[2016-12-14] MEDS: NORMAL SALINE 1000 ML 1,000 ML IV PRN ×2 (19:22→22:29)
[2016-12-14 19:36] LABS: ABSOLUTE BASOPHILS # (AUTO) 0.1 10^3/uL (0.0-0.2); ABSOLUTE EOSINOPHILS # (AUTO) 0.2 10^3/uL (0.0-0.6); ABSOLUTE LYMPHOCYTES (AUTO) 1.9 10^3/uL (0.5-4.7); ABSOLUTE MONOCYTES (AUTO) 0.6 10^3/uL (0.1-1.4); ABSOLUTE NEUT (AUTO) 4.9 10^3/uL (1.7-8.2); BASOPHILS % (AUTO) 0.9 % (0-2); EOSINOPHILS % (AUTO) 2.4 % (0-6); HEMATOCRIT 42.2 % (36.0-47.0); HEMOGLOBIN 12.9 g/dL (12.0-15.5); HGB HCT DIFFERENCE -3.5; LYMPHOCYTES % (AUTO) 24.9 % (13-45); MEAN CORPUSCULAR HEMOGLOBIN 25.3 pg (27.0-33.4); MEAN CORPUSCULAR HGB CONC 30.5 g/dL (32.0-36.0); MEAN CORPUSCULAR VOLUME 83 fl (80-97); MONOCYTES % (AUTO) 7.6 % (3-13); RED BLOOD COUNT 5.09 10^6/uL (3.72-5.28); RED CELL DISTRIBUTION WIDTH 16.3 % (11.5-14.0); SEGMENTED NEUTROPHILS % (AUTO) 64.2 % (42-78); WHITE BLOOD COUNT 7.6 10^3/uL (4.0-10.5)
[2016-12-14] MEDS ORDERED: MORPHINE SULFATE 10 MG/ML INJ IV ONE (19:45)
--- NOTE | 2016-12-14 19:47 | ER Document Report ---
ED General - General Chief Complaint: High Blood Sugar Stated Complaint: BLOOD SUGAR ISSUE Mode of Arrival: Ambulatory Notes: 61 year old female with a past medical history of chronic pain opiate dependence , diabetes and several previous admissions for DKA and for HHNS who presents to the ER with abdominal pain and nausea vomiting for the past few days. She also complains of constipation. Her blood sugars have been out of control, but she reports compliance with insulin and states that she took 20units just [employer]. Denies chest pain shortness of breath or palpitations. TRAVEL OUTSIDE OF THE [place] IN LAST 30 DAYS: No - Related Data Allergies/Adverse Reactions: No Known Drug Allergies Allergy (Mild, Verified 12/14/16 17:58) Past Medical History - General Information source: Patient, [facility] Records - Social History Smoking Status: Unknown if Ever Smoked Family History: Reviewed & Not Pertinent Patient has suicidal ideation: No Patient has homicidal ideation: No - Past Medical History Cardiac Medical History: Denies: Hx Congestive Heart Failure, Hx DVT, Hx Heart Attack, Hx Hypercholesterolemia, Hx Hypertension, Hx Pulmonary Embolism Pulmonary Medical History: Reports: Hx Bronchitis, Hx COPD, Hx Pneumonia Neurological Medical History: Reports: Hx Migraine Endocrine Medical History: Reports: Hx Diabetes Mellitus Type 1, Hx Diabetes Mellitus Type 2. Denies: Hx Hyperthyroidism, Hx Hypothyroidism Renal/ Medical History: Denies: Hx Peritoneal Dialysis Malignancy Medical History: Reports: Hx Ovarian Cancer, Hx Skin Cancer GI Medical History: Reports: Hx Gastroesophageal Reflux Disease, Hx Ulcer. Denies: Hx Cirrhosis, Hx Hepatitis Musculoskeltal Medical History: Reports Hx Arthritis, Reports Hx Multiple Sclerosis, Reports Hx Musculoskeletal Deformity, Reports Hx Musculoskeletal Trauma Skin Medical History: Reports Hx Psoriasis Psychiatric Medical History: Reports: Hx Anxiety, Hx Depression - denies homicidal/suicidal ideation Traumatic Medical History: Reports: Hx Fractures - Bilateral humerus Infectious Medical History: Reports: Hx C-Diff. Denies: Hx Hepatitis Past Surgical History: Reports: Hx Genitourinary Surgery - Bladder, Hx Orthopedic Surgery - Right wrist, Hx Tubal Ligation - Immunizations Immunizations up to date: Yes Hx Diphtheria, Pertussis, Tetanus Vaccination: Yes Hx Pneumococcal Vaccination: 06/15/13 Review of Systems - Review of Systems Constitutional: Malaise. denies: Chills, Fever EENT: No symptoms reported Cardiovascular: No symptoms reported. denies: Chest pain, Palpitations Respiratory: No symptoms reported. denies: Cough, Hurts to breathe, Short of breath Gastrointestinal: See HPI Genitourinary: No symptoms reported. denies: Burning, Dysuria Musculoskeletal: No symptoms reported Skin: No symptoms reported Hematologic/Lymphatic: No symptoms reported Neurological/Psychological: Depression, Anxiety Physical Exam - Vital signs Vitals: Temp Pulse Resp BP Pulse Ox 97.6 F 121 H 18 106/75 97 12/14/16 17:59 12/14/16 17:59 12/14/16 17:59 12/14/16 17:59 12/14/16 17:59 - Notes Notes: PHYSICAL EXAMINATION: GENERAL: Frail elderly female who appears older than stated age who is in mild distress secondary to abdominal pain HEAD: Atraumatic, normocephalic. EYES: Pupils equal round and reactive to light, extraocular movements intact, sclera anicteric, conjunctiva are normal. ENT: nares patent, oropharynx clear without exudates. Mucous membranes somewhat dry NECK: Normal range of motion, supple without lymphadenopathy LUNGS: Breath sounds clear to auscultation bilaterally and equal. No wheezes rales or rhonchi. HEART: Tachycardic rate and regular rhythm without murmurs ABDOMEN: Soft, mild diffuse tenderness to palpation, normoactive bowel sounds. No guarding, no rebound. No masses appreciated. EXTREMITIES: Normal range of motion NEUROLOGICAL: Cranial nerves grossly intact. Normal speech. No gross focal motor or sensory deficits appreciated. PSYCH: Normal mood, anxious affect. SKIN: Warm, Dry, normal turgor, no rashes or lesions noted. Course - Re-evaluation Re-evalutation: 12/14/16 23:59 Patient noted to have significant hyper glycemia with a blood sugar of 915. Her anion gap is 17. IV fluids and IV insulin being given in the ER and she will be admitted to the hospitalist Dr. Villela to the ICU. She is comfortable with this plan and questions are answered. - Vital Signs Vital signs: Temp Pulse Resp BP Pulse Ox 97.6 F 121 H 17 96/66 L 100 12/14/16 17:59 12/14/16 17:59 12/14/16 22:31 12/14/16 22:31 12/14/16 22:31 - Laboratory Result Diagrams: 12/14/16 19:22 12/14/16 19:22 Laboratory results interpreted by me: 12/14/16 12/14/16 12/14/16 19:22 19:22 19:22 MCH 25.3 L MCHC 30.5 L RDW 16.3 H VBG pH Sodium 132.3 L Chloride 96 L Carbon Dioxide 19 L Glucose 915 H* Hemoglobin A1c % 10.7 H Calcium 10.3 H Alkaline Phosphatase 136 H Creatine Kinase < 20 L Urine Glucose (UA) 12/14/16 12/14/16 20:00 20:30 MCH MCHC RDW VBG pH 7.29 L Sodium Chloride Carbon Dioxide Glucose Hemoglobin A1c % Calcium Alkaline Phosphatase Creatine Kinase Urine Glucose (UA) >=500 H Critical Care Note - Critical Care Note Total time excluding time spent on procedures (mins): 35 - minutes of critical care time spent in direct contact evaluating and reevaluating the patient, treating symptoms, reviewing labs and studies and speaking with family and consultants excluding any procedures Discharge - Discharge Clinical Impression: Hyperosmolar non-ketotic state in patient with type 2 diabetes mellitus, Tachycardia Condition: Serious Disposition: ADMITTED INPATIENT Admitting Provider: Hospitalist - Dr. Villela Unit Admitted: ICU
[2016-12-14 19:56] LABS: ALANINE AMINOTRANSFERASE 19 U/L (9-52); ALBUMIN 4.4 g/dL (3.5-5.0); ALKALINE PHOSPHATASE 136 U/L (38-126); ANION GAP 17 (5-19); ASPARTATE AMINO TRANSFERASE 18 U/L (14-36); BILIRUBIN,DIRECT 0.4 mg/dL (0.0-0.4); BILIRUBIN,TOTAL 0.5 mg/dL (0.2-1.3); BLOOD UREA NITROGEN 16 mg/dL (7-20); CALCIUM 10.3 mg/dL (8.4-10.2); CARBON DIOXIDE 19 mmol/L (22-30); CHLORIDE 96 mmol/L (98-107); CREATININE RESULT 0.61 mg/dL (0.52-1.25); POTASSIUM 4.4 mmol/L (3.6-5.0); SODIUM 132.3 mmol/L (137-145); TOTAL PROTEIN 7.3 g/dL (6.3-8.2)
[2016-12-14 20:09] LABS: CREATINE KINASE MB < 0.22 ng/mL (<4.55); TROPONIN I < 0.012 ng/mL
[2016-12-14 20:22] LABS: CREATINE KINASE < 20 U/L (30-135)
[2016-12-14 20:32] LABS: GLUCOSE 915 mg/dL (75-110)
[2016-12-14 20:41] LABS: APPEARANCE,URINE CLEAR; BILIRUBIN,URINE NEGATIVE (NEGATIVE); GLUCOSE, URINE >=500 mg/dL (NEGATIVE); KETONES,URINE NEGATIVE (NEGATIVE); LEUKOCYTE ESTERASE,URINE NEGATIVE (NEGATIVE); NITRITE,URINE NEGATIVE (NEGATIVE); PROTEIN,URINE NEGATIVE (NEGATIVE); URINE SPECIFIC GRAVITY 1.032; UROBILINOGEN,URINE NEGATIVE mg/dL (<2.0)
[2016-12-14 20:42] LABS: VENOUS BLOOD BASE EXCESS -6.3 mmol/L; VENOUS BLOOD HCO3 20.1 mmol/L (20-32); VENOUS BLOOD PCO2 43.2 mmHg (35-63); VENOUS BLOOD PH 7.29 (7.30-7.42)
[2016-12-14] MEDS ORDERED: INSULIN REG, HUMAN 100 UNIT/ML 3 ML VIAL (PYX) IV ONE (20:54)
[2016-12-14] MEDS ORDERED: ACETAMINOPHEN 650 MG SUPP.RECT PR PRN (21:02)
[2016-12-14] MEDS ORDERED: GLUCAGON,HUMAN RECOMB 1 MG INJ IM PRN (21:02)
[2016-12-14] MEDS ORDERED: ACETAMINOPHEN 325 MG TABLET PO PRN (21:02)
[2016-12-14] MEDS ORDERED: DEXTROSE 40% GEL 15 GM TUBE PO PRN ×2 (21:02)
[2016-12-14] MEDS ORDERED: DEXTROSE 50%-WATER 25 GM/50 ML DISP.SYRIN IV PRN ×2 (21:02)
[2016-12-14] MEDS ORDERED: NORMAL SALINE 100 ML with INSULIN REGULAR, HUMAN 100 UNIT IV PRN ×2 (21:02)
[2016-12-14] MEDS ORDERED: POTASSI CL 20 MEQ/1/2NS 1L 1,000 ML IV SCH (21:15)
[2016-12-14 21:23] LABS: MAGNESIUM 2.1 mg/dL (1.6-2.3); PHOSPHORUS 3.8 mg/dL (2.5-4.5)
[2016-12-14] MEDS ORDERED: LORAZEPAM INJ 2 MG/1 ML VIAL IV ONE (21:38)
[2016-12-14] MEDS ORDERED: INSULIN REG, HUMAN 100 UNIT/ML 3 ML VIAL (PYX) ONE (21:58)
--- NOTE | 2016-12-14 22:42 | PDOC H&P ---
History of Present Illness Admission Date/PCP: 12/14/16 21:02 GIUSEPPE WHITE MD Patient complains of: Abdominal pain and nausea History of Present Illness: JAMES MORRIS is a 61 year old female with a past medical history of chronic pain opiate dependence, diabetes and recurrent admission for DKA with hyperosmolar nonketotic acidosis. Who presents to the emergency room after 48 hours of uncontrolled blood sugars associated with abdominal pain and nausea vomiting of gastric material. She also complains of constipation. Denies chest pain shortness of breath or palpitations. In the emergency room she receives IV fluids, insulin and symptomatically management then referred to the hospitalist for admission. With a glucose greater than 900 and nausea Past Medical History Cardiac Medical History: Denies: Congestive Heart Failure, DVT, Myocardial Infarction, Hyperlipidema, Hypertension, Pulmonary Embolism Pulmonary Medical History: Reports: Bronchitis, Chronic Obstructive Pulmonary Disease (COPD), Pneumonia Neurological Medical History: Reports: Migraine Endocrine Medical History: Reports: Diabetes Mellitus Type 1 Denies: Hyperthyroidism, Hypothyroidism Malignancy Medical History: Reports: Ovarian Cancer, Skin Cancer GI Medical History: Reports: Gastroesophageal Reflux Disease Denies: Cirrhosis, Hepatitis Musculoskeltal Medical History: Reports: Arthritis Skin Medical History: Reports: Psoriasis Psychiatric Medical History: Reports: Depression - denies homicidal/suicidal ideation, General Anxiety Disorder Hematology: Reports: Anemia Denies: Hemophilia, Sickle Cell Disease Infectious Medical History: Reports: Clostridium Difficile Past Surgical History Past Surgical History: Reports: Orthopedic Surgery - Right wrist, Tubal Ligation Denies: Amputation Social History Information Source: Patient Lives with: Alone Smoking Status: Current Every Day Smoker Frequency of Alcohol Use: None Hx Recreational Drug Use: No Drugs: None Hx Prescription Drug Abuse: Yes - opiate, sedative and stimulant seeking history - Advance Directive Resuscitation Status: Full Code Family History Family History: Hypertension Parental Family History Reviewed: Yes Children Family History Reviewed: Yes Sibling(s) Family History Reviewed.: Yes Medication/Allergy Home Medications: Acidoph/L.bulg/Bif.b/S.thermop [Bacid Caplet] 1 each PO BID 10/21/16 Clobetasol Propionate/Emoll [Clobetasol Emollient 0.05% Crm] 1 applic TP BID 03/01 Etanercept [Enbrel] 50 mg SQ FR@1000 10/21/16 Ferrous Sulfate [Iron] 325 mg PO DAILY 10/21/16 Insulin Lispro [Humalog Insulin (Lispro) 100 unit/mL] 0 unit SUBCUT AC 10/21/16 Ipratropium/Albuterol Sulfate [Combivent Respimat 4 gm Mdi] 1 puff IH Q12 Montelukast Sodium [Singulair 10 mg Tablet] 10 mg PO DAILY 10/21/16 Omeprazole Magnesium [Prilosec Otc] 20 mg PO BID 10/21/16 Ondansetron [Zofran Odt 4 mg Tablet] 1 tab PO Q4HP PRN 10/21/16 Oxycodone HCl/Acetaminophen [Percocet 5-325 mg Tablet] 1 tab PO Q4HP PRN Docusate Sodium [Colace 100 mg Capsule] 100 mg PO BID #60 capsule 10/22/16 Insulin Glargine,Hum.rec.anlog [Lantus Insulin 100 Unit/mL] 45 unit SUBCUT QAM insuln.pen 10/22/16 Lidocaine [Lidoderm 5% (700 mg) Transdermal Patch] 1 patch TP DAILY adh..patch 10/22/16 Allergies/Adverse Reactions: No Known Drug Allergies Allergy (Mild, Verified 12/14/16 17:58) Review of Systems Constitutional: PRESENT: as per HPI, anorexia. ABSENT: fever(s), headache(s), night sweats, weakness Eyes: ABSENT: visual disturbances Ears: ABSENT: hearing changes Cardiovascular: ABSENT: chest pain, dyspnea on exertion, edema, orthropnea, palpitations Respiratory: ABSENT: cough, hemoptysis Gastrointestinal: PRESENT: abdominal pain, bloating, constipation, nausea, vomiting. ABSENT: coffee ground emesis, diarrhea, hematemesis, hematochezia, melena Genitourinary: ABSENT: dysuria, hematuria Musculoskeletal: PRESENT: back pain Integumentary: ABSENT: rash, wounds Neurological: ABSENT: abnormal gait, abnormal speech, confusion, dizziness, focal weakness, syncope Psychiatric: PRESENT: anxiety, depression Endocrine: PRESENT: polyphagia, polyuria, other - Recurrent hyperglycemia Hematologic/Lymphatic: ABSENT: easy bleeding, easy bruising Physical Exam Vital Signs: Temp Pulse Resp BP Pulse Ox 97.6 F 121 H 20 98/65 L 100 12/14/16 17:59 12/14/16 17:59 12/14/16 20:33 12/14/16 20:33 12/14/16 20:33 General appearance: PRESENT: cooperative, disheveled, mild distress Head exam: PRESENT: atraumatic, normocephalic Eye exam: PRESENT: conjunctiva pink, EOMI, PERRLA. ABSENT: scleral icterus Ear exam: PRESENT: normal external ear exam Mouth exam: PRESENT: dry mucosa, tongue midline Neck exam: ABSENT: carotid bruit, JVD, lymphadenopathy, thyromegaly Respiratory exam: PRESENT: clear to auscultation megan. ABSENT: rales, rhonchi, wheezes Cardiovascular exam: PRESENT: RRR. ABSENT: diastolic murmur, rubs, systolic murmur Pulses: PRESENT: normal dorsalis pedis pul GI/Abdominal exam: PRESENT: hyperactive bowel sounds, soft, tenderness. ABSENT : ascites, diminished bowel sounds, distended, firm, guarding, hernia Rectal exam: PRESENT: deferred Extremities exam: PRESENT: full ROM. ABSENT: calf tenderness, clubbing, pedal edema Neurological exam: PRESENT: alert, awake, oriented to person, oriented to place , oriented to time, oriented to situation, CN II-XII grossly intact. ABSENT: motor sensory deficit Psychiatric exam: PRESENT: anxious, depressed, unusual affect Skin exam: PRESENT: dry, intact, warm. ABSENT: cyanosis, rash Results Impressions: Chest X-Ray 12/14/16 18:47 IMPRESSION: No acute cardiopulmonary findings. Large hiatal hernia. Assessment & Plan - Diagnosis (1) Hyperosmolar non-ketotic state in patient with type 2 diabetes mellitus Is this a current diagnosis for this admission?: YesPlan: Admitted to IMCU, insulin and IV fluid with evaluation of chemistry every 6 hours and electrolyte repletion. Diabetic education (2) Abdominal pain Qualifiers: Abdominal location: generalized Qualified Code(s): R10.84 - Generalized abdominal pain Is this a current diagnosis for this admission?: YesPlan: Likely secondary to #1 however the patient is chronically constipated secondary to opiate dependence she'll receive lactulose and symptomatically management (3) Anxiety Is this a current diagnosis for this admission?: YesPlan: When necessary Risperdal and low-dose benzodiazepine when necessary (4) Tobacco use disorder Is this a current diagnosis for this admission?: YesPlan: Tobacco Dependence patient received tobacco cessation counseling and offered nicotine replacement options (5) Chronic pain Is this a current diagnosis for this admission?: YesPlan: Challenging given history of opiate, benzodiazepine and stimulant seeking behavior. I will resume home regiment at half dose - Time Time Spent: 50 to 70 Minutes - Inpatient Certification Medical Necessity: Need Close Monitoring Due to Risk of Patient Decompensation
[2016-12-14] MEDS ORDERED: RISPERIDONE 0.25 MG TABLET PO PRN (22:43)
[2016-12-14] MEDS ORDERED: OLANZAPINE INJ/PF 10 MG SDV IM ONE (23:22)
[2016-12-15 01:06] LABS: ANION GAP 8 (5-19); BLOOD UREA NITROGEN 10 mg/dL (7-20); CALCIUM 8.2 mg/dL (8.4-10.2); CARBON DIOXIDE 22 mmol/L (22-30); CHLORIDE 111 mmol/L (98-107); CREATININE RESULT 0.42 mg/dL (0.52-1.25); GLUCOSE 197 mg/dL (75-110); SODIUM 140.8 mmol/L (137-145)
[2016-12-15 01:16] LABS: CREATINE KINASE < 20 U/L (30-135)
[2016-12-15 01:23] LABS: URINE BARBITURATES SCREEN NEGATIVE; URINE METHADONE SCREEN NEGATIVE; URINE OPIATES LOW NEGATIVE; URINE PHENCYCLIDINE SCREEN NEGATIVE
[2016-12-15 01:24] LABS: CREATINE KINASE MB < 0.22 ng/mL (<4.55); TROPONIN I < 0.012 ng/mL
[2016-12-15 01:48] LABS: POTASSIUM 3.5 mmol/L (3.6-5.0)
[2016-12-15] MEDS: IPRATROPIUM/ALBUTEROL 0.5-2.5 MG/3 ML AMPUL NEB SCH ×4 (02:31→20:41)
[2016-12-15] MEDS: IPRATROPIUM/ALBUTEROL 120 PUFF/4 GM MDI IH SCH ×3 (03:23→22:48)
[2016-12-15] MEDS: HEPARIN SOD (PORCINE) 5,000 UNIT/ML 1 ML SYRINGE SUBCUT SCH ×4 (03:23→22:44)
[2016-12-15 06:08] LABS: ABSOLUTE BASOPHILS # (AUTO) 0.1 10^3/uL (0.0-0.2); ABSOLUTE EOSINOPHILS # (AUTO) 0.2 10^3/uL (0.0-0.6); ABSOLUTE LYMPHOCYTES (AUTO) 1.8 10^3/uL (0.5-4.7); ABSOLUTE MONOCYTES (AUTO) 0.6 10^3/uL (0.1-1.4); ABSOLUTE NEUT (AUTO) 2.6 10^3/uL (1.7-8.2); BASOPHILS % (AUTO) 1.3 % (0-2); EOSINOPHILS % (AUTO) 2.9 % (0-6); HGB HCT DIFFERENCE -1.1; LYMPHOCYTES % (AUTO) 34.1 % (13-45); MEAN CORPUSCULAR HGB CONC 32.1 g/dL (32.0-36.0); MONOCYTES % (AUTO) 11.2 % (3-13); RED BLOOD COUNT 4.12 10^6/uL (3.72-5.28); RED CELL DISTRIBUTION WIDTH 15.6 % (11.5-14.0); SEGMENTED NEUTROPHILS % (AUTO) 50.5 % (42-78); WHITE BLOOD COUNT 5.2 10^3/uL (4.0-10.5)
[2016-12-15 06:26] LABS: HEMOGLOBIN 10.3 g/dL (12.0-15.5); MEAN CORPUSCULAR VOLUME 78 fl (80-97)
[2016-12-15 06:28] LABS: ANION GAP 8 (5-19); BLOOD UREA NITROGEN 8 mg/dL (7-20); CALCIUM 8.6 mg/dL (8.4-10.2); CARBON DIOXIDE 21 mmol/L (22-30); CHLORIDE 114 mmol/L (98-107); CREATININE RESULT 0.43 mg/dL (0.52-1.25); GLUCOSE 153 mg/dL (75-110); POTASSIUM 3.9 mmol/L (3.6-5.0); SODIUM 143.3 mmol/L (137-145)
[2016-12-15 06:36] LABS: CREATINE KINASE < 20 U/L (30-135)
[2016-12-15 06:45] LABS: CREATINE KINASE MB < 0.22 ng/mL (<4.55); TROPONIN I < 0.012 ng/mL
[2016-12-15] MEDS: POTASSI CL 20 MEQ/1/2NS 1L 20 MEQ/1,000 ML RTUINJ IV SCH ×2 (08:07→23:44)
[2016-12-15] MEDS: MONTELUKAST SODIUM 10 MG TABLET PO SCH (09:22)
[2016-12-15] MEDS: DOCUSATE SODIUM 100 MG CAPSULE PO SCH ×2 (09:23→19:44)
--- NOTE | 2016-12-15 10:38 | PDOC PROGRESS REPORT ---
Subjective Progress Note for:: 12/15/16 Subjective:: Complains of diffuse abdominal pain. Physical Exam Vital Signs: Temp Pulse Resp BP Pulse Ox 97.6 F 81 22 H 111/54 L 98 12/15/16 07:15 12/15/16 07:15 12/15/16 07:15 12/15/16 07:15 12/15/16 07:15 Intake & Output 12/14/16 12/15/16 12/16/16 06:59 06:59 06:59 Intake Total 2000 Output Total 1000 Balance 1000 Weight 56 kg General appearance: PRESENT: no acute distress Eye exam: PRESENT: conjunctiva pink. ABSENT: scleral icterus Mouth exam: PRESENT: dry mucosa Neck exam: ABSENT: JVD Respiratory exam: PRESENT: clear to auscultation megan. ABSENT: rales, rhonchi, wheezes Cardiovascular exam: PRESENT: RRR. ABSENT: diastolic murmur, rubs, systolic murmur GI/Abdominal exam: PRESENT: normal bowel sounds, tenderness - Diffuse tenderness worse in the periumbilical area.. ABSENT: distended, guarding, mass , organolmegaly, rebound Extremities exam: ABSENT: calf tenderness, clubbing, pedal edema Neurological exam: PRESENT: alert, awake, oriented to person, oriented to place , oriented to time, oriented to situation, CN II-XII grossly intact. ABSENT: motor sensory deficit Psychiatric exam: PRESENT: anxious Skin exam: PRESENT: dry, intact, warm. ABSENT: cyanosis, rash Results Laboratory Results: 12/15/16 05:58 12/15/16 05:58 12/15/16 12/15/16 12/15/16 00:15 05:58 05:58 WBC 5.2 RBC 4.12 Hgb 10.3 L D Hct 32.0 L MCV 78 L D MCH 25.0 L MCHC 32.1 RDW 15.6 H Plt Count 149 L Seg Neutrophils % 50.5 Lymphocytes % 34.1 Monocytes % 11.2 Eosinophils % 2.9 Basophils % 1.3 Absolute Neutrophils 2.6 Absolute Lymphocytes 1.8 Absolute Monocytes 0.6 Absolute Eosinophils 0.2 Absolute Basophils 0.1 Sodium 140.8 143.3 Potassium 3.5 L 3.9 Chloride 111 H 114 H Carbon Dioxide 22 21 L Anion Gap 8 8 BUN 10 8 Creatinine 0.42 L 0.43 L Est GFR ( Amer) > 60 > 60 Est GFR (Non-Af Amer) > 60 > 60 Glucose 197 H 153 H Calcium 8.2 L 8.6 12/15/16 12/15/16 12/15/16 00:15 00:15 05:58 Creatine Kinase < 20 L < 20 L CK-MB (CK-2) < 0.22 Troponin I < 0.012 12/15/16 05:58 Creatine Kinase CK-MB (CK-2) < 0.22 Troponin I < 0.012 Impressions: Chest X-Ray 12/14/16 18:47 IMPRESSION: No acute cardiopulmonary findings. Large hiatal hernia. Assessment & Plan - Diagnosis (1) Hyperosmolar non-ketotic state in patient with type 2 diabetes mellitus Is this a current diagnosis for this admission?: YesPlan: Patient is currently getting IV fluids and insulin drip. Her blood sugars are improving. (2) Abdominal pain Qualifiers: Abdominal location: generalized Qualified Code(s): R10.84 - Generalized abdominal pain Is this a current diagnosis for this admission?: YesPlan: The etiology of this abdominal pain is not entirely clear. Patient does have problems with chronic constipation however she reports this pain is worse than usual. Because of this we will obtain an abdominal CT evaluation. She is on lactulose for constipation. We'll give morphine as needed. She does not appear to have a surgical abdomen at this time. (3) Anxiety Is this a current diagnosis for this admission?: YesPlan: Continue with Risperdal. (4) COPD (chronic obstructive pulmonary disease) Qualifiers: COPD type: unspecified COPD Qualified Code(s): J44.9 - Chronic obstructive pulmonary disease, unspecified Is this a current diagnosis for this admission?: YesPlan: Patient is on Singulair and nebulizers. (5) Tobacco use disorder Is this a current diagnosis for this admission?: YesPlan: She is encouraged to quit (6) Constipation due to opioid therapy Is this a current diagnosis for this admission?: Yes (7) Hypertension Qualifiers: Hypertension type: essential hypertension Qualified Code(s): I10 - Essential (primary) hypertension Is this a current diagnosis for this admission?: YesPlan: Blood pressure is under good control. - Time Time Spent with patient: 25-34 minutes - Inpatient Certification Medical Necessity: Need Close Monitoring Due to Risk of Patient Decompensation, Need For IV Fluids
[2016-12-15] MEDS: MORPHINE SULFATE 10 MG/ML INJ IV PRN ×3 (10:50→22:44)
[2016-12-15 13:41] LABS: ANION GAP 7 (5-19); BLOOD UREA NITROGEN 6 mg/dL (7-20); CALCIUM 8.9 mg/dL (8.4-10.2); CARBON DIOXIDE 22 mmol/L (22-30); CHLORIDE 110 mmol/L (98-107); CREATININE RESULT 0.42 mg/dL (0.52-1.25); GLUCOSE 216 mg/dL (75-110); POTASSIUM 4.5 mmol/L (3.6-5.0); SODIUM 139.2 mmol/L (137-145)
[2016-12-15 13:45] LABS: CREATINE KINASE < 20 U/L (30-135)
[2016-12-15 13:53] LABS: CREATINE KINASE MB 0.33 ng/mL (<4.55)
[2016-12-15 13:57] LABS: TROPONIN I < 0.012 ng/mL
[2016-12-15 18:10] LABS: ANION GAP 10 (5-19); BLOOD UREA NITROGEN 5 mg/dL (7-20); CALCIUM 8.8 mg/dL (8.4-10.2); CARBON DIOXIDE 19 mmol/L (22-30); CHLORIDE 110 mmol/L (98-107); CREATININE RESULT 0.43 mg/dL (0.52-1.25); GLUCOSE 192 mg/dL (75-110); POTASSIUM 4.2 mmol/L (3.6-5.0); SODIUM 138.8 mmol/L (137-145)
[2016-12-15] MEDS ORDERED: DEXTROSE 40% GEL 15 GM TUBE PO PRN ×2 (19:36)
[2016-12-15] MEDS ORDERED: GLUCAGON,HUMAN RECOMB 1 MG INJ IM PRN (19:36)
[2016-12-15] MEDS ORDERED: DEXTROSE 50%-WATER 25 GM/50 ML DISP.SYRIN IV PRN ×2 (19:36)
[2016-12-15] MEDS ORDERED: INSULIN GLARGINE,HUM.REC.ANLOG 300 UNIT/3 ML INSULN.PEN SUBCUT ONE (21:22)
[2016-12-15] MEDS ORDERED: INSULIN GLARGINE,HUM.REC.ANLOG 300 UNIT/3 ML INSULN.PEN SUBCUT SCH (22:00)
[2016-12-16 01:00] LABS: ANION GAP 11 (5-19); BLOOD UREA NITROGEN 7 mg/dL (7-20); CALCIUM 8.7 mg/dL (8.4-10.2); CARBON DIOXIDE 21 mmol/L (22-30); CHLORIDE 109 mmol/L (98-107); CREATININE RESULT 0.62 mg/dL (0.52-1.25); GLUCOSE 249 mg/dL (75-110); POTASSIUM 4.1 mmol/L (3.6-5.0); SODIUM 141.2 mmol/L (137-145)
[2016-12-16] MEDS: IPRATROPIUM/ALBUTEROL 0.5-2.5 MG/3 ML AMPUL NEB SCH ×2 (02:43→07:56)
[2016-12-16] MEDS: MORPHINE SULFATE 10 MG/ML INJ IV PRN ×5 (03:23→21:32)
[2016-12-16] MEDS: HEPARIN SOD (PORCINE) 5,000 UNIT/ML 1 ML SYRINGE SUBCUT SCH ×3 (05:08→21:28)
[2016-12-16 06:00] LABS: ABSOLUTE EOSINOPHILS # (AUTO) 0.1 10^3/uL (0.0-0.6); ABSOLUTE LYMPHOCYTES (AUTO) 1.1 10^3/uL (0.5-4.7); ABSOLUTE MONOCYTES (AUTO) 0.2 10^3/uL (0.1-1.4); ABSOLUTE NEUT (AUTO) 2.3 10^3/uL (1.7-8.2); BASOPHILS % (AUTO) 1.1 % (0-2); EOSINOPHILS % (AUTO) 2.1 % (0-6); HEMATOCRIT 29.9 % (36.0-47.0); HEMOGLOBIN 9.7 g/dL (12.0-15.5); HGB HCT DIFFERENCE -0.8; LYMPHOCYTES % (AUTO) 28.4 % (13-45); MEAN CORPUSCULAR HEMOGLOBIN 25.2 pg (27.0-33.4); MEAN CORPUSCULAR HGB CONC 32.4 g/dL (32.0-36.0); MEAN CORPUSCULAR VOLUME 78 fl (80-97); MONOCYTES % (AUTO) 6.5 % (3-13); RED BLOOD COUNT 3.85 10^6/uL (3.72-5.28); RED CELL DISTRIBUTION WIDTH 15.8 % (11.5-14.0); SEGMENTED NEUTROPHILS % (AUTO) 61.9 % (42-78); WHITE BLOOD COUNT 3.8 10^3/uL (4.0-10.5)
[2016-12-16 06:27] LABS: ANION GAP 6 (5-19); BLOOD UREA NITROGEN 10 mg/dL (7-20); CALCIUM 9.2 mg/dL (8.4-10.2); CARBON DIOXIDE 23 mmol/L (22-30); CHLORIDE 109 mmol/L (98-107); GLUCOSE 240 mg/dL (75-110); POTASSIUM 4.2 mmol/L (3.6-5.0); SODIUM 138.1 mmol/L (137-145)
[2016-12-16] MEDS: INSULIN LISPRO 100 UNIT/ML 3 ML VIAL SUBCUT PRN ×4 (08:45→21:28)
[2016-12-16] MEDS ORDERED: INSULIN GLARGINE,HUM.REC.ANLOG 300 UNIT/3 ML INSULN.PEN SUBCUT SCH (09:12)
[2016-12-16] MEDS: NICOTINE 14 MG/24 HR PATCH.TD24 TD SCH (10:30)
[2016-12-16] MEDS: DOCUSATE SODIUM 100 MG CAPSULE PO SCH ×2 (10:31→17:03)
[2016-12-16] MEDS: MONTELUKAST SODIUM 10 MG TABLET PO SCH (10:31)
[2016-12-16] MEDS: IPRATROPIUM/ALBUTEROL 120 PUFF/4 GM MDI IH SCH ×2 (10:33→21:31)
--- NOTE | 2016-12-16 10:48 | PDOC PROGRESS REPORT ---
Subjective Progress Note for:: 12/16/16 Subjective:: Continues to complain of abdominal pain. Patient's abdominal CT yesterday was unrevealing. Physical Exam Vital Signs: Temp Pulse Resp BP Pulse Ox 97.2 F 92 19 108/56 L 100 12/16/16 08:01 12/16/16 08:52 12/16/16 08:52 12/16/16 08:52 12/16/16 08:52 Intake & Output 12/15/16 12/16/16 12/17/16 06:59 06:59 06:59 Intake Total 1999 2186 Output Total 1000 3300 Balance 1000 -1114 Weight 56 kg 56.5 kg General appearance: PRESENT: no acute distress Eye exam: PRESENT: conjunctiva pink. ABSENT: scleral icterus Mouth exam: PRESENT: moist, tongue midline Neck exam: ABSENT: JVD Respiratory exam: PRESENT: clear to auscultation megan. ABSENT: rales, rhonchi, wheezes Cardiovascular exam: PRESENT: RRR. ABSENT: diastolic murmur, rubs, systolic murmur GI/Abdominal exam: PRESENT: normal bowel sounds, soft. ABSENT: distended, guarding, mass, organolmegaly, rebound, tenderness Extremities exam: ABSENT: calf tenderness, clubbing, pedal edema Neurological exam: PRESENT: alert, awake, oriented to person, oriented to place , oriented to time, oriented to situation, CN II-XII grossly intact. ABSENT: motor sensory deficit Psychiatric exam: PRESENT: appropriate affect Skin exam: PRESENT: dry, intact, warm. ABSENT: cyanosis, rash Results Laboratory Results: 12/16/16 05:43 12/16/16 05:43 12/15/16 12/15/16 12/16/16 12:59 17:40 00:20 WBC RBC Hgb Hct MCV MCH MCHC RDW Plt Count Seg Neutrophils % Lymphocytes % Monocytes % Eosinophils % Basophils % Absolute Neutrophils Absolute Lymphocytes Absolute Monocytes Absolute Eosinophils Absolute Basophils Sodium 139.2 138.8 141.2 Potassium 4.5 4.2 4.1 Chloride 110 H 110 H 109 H Carbon Dioxide 22 19 L 21 L Anion Gap 7 10 11 BUN 6 L 5 L 7 Creatinine 0.42 L 0.43 L 0.62 Est GFR ( Amer) > 60 > 60 > 60 Est GFR (Non-Af Amer) > 60 > 60 > 60 Glucose 216 H 192 H 249 H Calcium 8.9 8.8 8.7 12/16/16 12/16/16 05:43 05:43 WBC 3.8 L RBC 3.85 Hgb 9.7 L Hct 29.9 L MCV 78 L MCH 25.2 L MCHC 32.4 RDW 15.8 H Plt Count 140 L Seg Neutrophils % 61.9 Lymphocytes % 28.4 Monocytes % 6.5 Eosinophils % 2.1 Basophils % 1.1 Absolute Neutrophils 2.3 Absolute Lymphocytes 1.1 Absolute Monocytes 0.2 Absolute Eosinophils 0.1 Absolute Basophils 0.0 Sodium 138.1 Potassium 4.2 Chloride 109 H Carbon Dioxide 23 Anion Gap 6 BUN 10 Creatinine 0.50 L Est GFR ( Amer) > 60 Est GFR (Non-Af Amer) > 60 Glucose 240 H Calcium 9.2 12/15/16 12/15/16 12/15/16 00:15 00:15 05:58 Creatine Kinase < 20 L < 20 L CK-MB (CK-2) < 0.22 Troponin I < 0.012 12/15/16 12/15/16 12/15/16 05:58 12:59 12:59 Creatine Kinase < 20 L CK-MB (CK-2) < 0.22 0.33 Troponin I < 0.012 < 0.012 Impressions: Chest X-Ray 12/14/16 18:47 IMPRESSION: No acute cardiopulmonary findings. Large hiatal hernia. Abdomen/Pelvis CT 12/15/16 00:00 IMPRESSION: Moderate hiatal hernia. Small colonic diverticulosis. Assessment & Plan - Diagnosis (1) Hyperosmolar non-ketotic state in patient with type 2 diabetes mellitus Is this a current diagnosis for this admission?: YesPlan: Patient is currently getting IV fluids. The blood sugars are still elevated however not as bad as when she presented. We will increase the patient's usual Lantus dose to 75 units daily. (2) Abdominal pain Qualifiers: Abdominal location: generalized Qualified Code(s): R10.84 - Generalized abdominal pain Is this a current diagnosis for this admission?: YesPlan: The etiology of this abdominal pain is not entirely clear. Patient does have problems with chronic constipation. She is on lactulose for constipation. We' ll give morphine as needed. She does not appear to have a surgical abdomen at this time. (3) Anxiety Is this a current diagnosis for this admission?: YesPlan: Continue with Risperdal. (4) COPD (chronic obstructive pulmonary disease) Qualifiers: COPD type: unspecified COPD Qualified Code(s): J44.9 - Chronic obstructive pulmonary disease, unspecified Is this a current diagnosis for this admission?: YesPlan: Patient is on Singulair and nebulizers. (5) Tobacco use disorder Is this a current diagnosis for this admission?: YesPlan: She is encouraged to quit (6) Constipation due to opioid therapy Is this a current diagnosis for this admission?: YesPlan: Continue with lactulose. (7) Hypertension Qualifiers: Hypertension type: essential hypertension Qualified Code(s): I10 - Essential (primary) hypertension Is this a current diagnosis for this admission?: YesPlan: Blood pressure is under good control. - Time Time Spent with patient: 25-34 minutes - Inpatient Certification Medical Necessity: Need Close Monitoring Due to Risk of Patient Decompensation
[2016-12-16] MEDS ORDERED: IPRATROPIUM/ALBUTEROL 0.5-2.5 MG/3 ML AMPUL NEB PRN (10:51)
[2016-12-17] MEDS: MORPHINE SULFATE 10 MG/ML INJ IV PRN ×2 (02:00→07:47)
[2016-12-17 05:06] LABS: ABSOLUTE EOSINOPHILS # (AUTO) 0.1 10^3/uL (0.0-0.6); ABSOLUTE LYMPHOCYTES (AUTO) 1.2 10^3/uL (0.5-4.7); ABSOLUTE MONOCYTES (AUTO) 0.4 10^3/uL (0.1-1.4); ABSOLUTE NEUT (AUTO) 3.2 10^3/uL (1.7-8.2); BASOPHILS % (AUTO) 0.7 % (0-2); EOSINOPHILS % (AUTO) 2.6 % (0-6); HEMATOCRIT 32.2 % (36.0-47.0); HEMOGLOBIN 10.4 g/dL (12.0-15.5); LYMPHOCYTES % (AUTO) 24.2 % (13-45); MEAN CORPUSCULAR HGB CONC 32.3 g/dL (32.0-36.0); MEAN CORPUSCULAR VOLUME 77 fl (80-97); MONOCYTES % (AUTO) 8.9 % (3-13); RED BLOOD COUNT 4.17 10^6/uL (3.72-5.28); RED CELL DISTRIBUTION WIDTH 15.8 % (11.5-14.0); SEGMENTED NEUTROPHILS % (AUTO) 63.6 % (42-78)
[2016-12-17] MEDS: HEPARIN SOD (PORCINE) 5,000 UNIT/ML 1 ML SYRINGE SUBCUT SCH (05:18)
[2016-12-17 05:21] LABS: ANION GAP 9 (5-19); BLOOD UREA NITROGEN 11 mg/dL (7-20); CALCIUM 10.3 mg/dL (8.4-10.2); CARBON DIOXIDE 31 mmol/L (22-30); CHLORIDE 105 mmol/L (98-107); CREATININE RESULT 0.46 mg/dL (0.52-1.25); GLUCOSE 102 mg/dL (75-110); SODIUM 144.6 mmol/L (137-145)
[2016-12-17] MEDS: NICOTINE 14 MG/24 HR PATCH.TD24 TD SCH (09:05)
[2016-12-17] MEDS: IPRATROPIUM/ALBUTEROL 120 PUFF/4 GM MDI IH SCH (09:05)
[2016-12-17] MEDS: DOCUSATE SODIUM 100 MG CAPSULE PO SCH (09:05)
[2016-12-17] MEDS: MONTELUKAST SODIUM 10 MG TABLET PO SCH (09:05)
[2016-12-17 10:55] VITALS: BP 115/70
--- NOTE | 2016-12-17 11:54 | PDOC DISCHARGE SUMMARY ---
General - Admit/Disc Date/PCP Admission Date/Primary Care Provider: 12/14/16 21:02 GIUSEPPE WHITE MD Discharge Date: 12/17/16 - Discharge Diagnosis (1) Hyperosmolar non-ketotic state in patient with type 2 diabetes mellitus Is this a current diagnosis for this admission?: YesSummary: Initially treated with insulin drip and then switched back over to Lantus. Her chronic Lantus dose has been increased from 65-70 units daily. (2) Abdominal pain Is this a current diagnosis for this admission?: YesSummary: Had an abdominal CT that was unremarkable. Etiology of abdominal pain is unclear but it is improving. (3) Anxiety Is this a current diagnosis for this admission?: Yes (4) COPD (chronic obstructive pulmonary disease) Is this a current diagnosis for this admission?: Yes (5) Tobacco use disorder Is this a current diagnosis for this admission?: Yes (6) Constipation due to opioid therapy Is this a current diagnosis for this admission?: Yes (7) Hypertension Is this a current diagnosis for this admission?: Yes - Additional Information Resuscitation Status: Full Code Discharge Diet: Diabetic Discharge Activity: Activity As Tolerated Home Medications: Docusate Sodium [Colace 100 mg Capsule] 100 mg PO BID 12/15/16 Etanercept [Enbrel] 50 mg SQ FR@1000 12/15/16 Gabapentin [Neurontin 300 mg Capsule] 300 mg PO Q8 12/15/16 Lidocaine [Lidoderm 5% (700 mg) Transdermal Patch] 1 patch TOP DAILY 12/15/16 Omeprazole 20 mg PO BID 12/15/16 Insulin Glargine,Hum.rec.anlog [Lantus Insulin 100 Unit/mL] 70 unit SUBCUT QHS # 1 insuln.pen 12/17/16 Ipratropium/Albuterol Sulfate [Duoneb 3 ml Ampul] 3 ml NEB RTQ6HP PRN vial.neb 12/17/16 Montelukast Sodium [Singulair 10 mg Tablet] 10 mg PO DAILY tablet 12/17/16 Nicotine [Nicoderm 14 mg/24 Hr Transdermal Patch] 1 each TD DAILY patch.td24 Oxycodone HCl/Acetaminophen [Percocet 10-325 Mg Tablet] 1 each PO Q6HP PRN #30 tablet 12/17/16 History of Present Illness History of Present Illness: JAMES MORRIS is a 61 year old female who presented with 48 hour history of uncontrolled blood sugars along with nausea vomiting abdominal pain. The patient was found to have hyperosmolar hyperglycemic nonketotic state. Patient admitted for IV fluids and IV insulin. Her blood sugar was greater than 900 when she presented. Hospital Course Hospital Course: 61-year-old female who presented with hyperosmolar glycemia nonketotic state with blood sugar of 900 when she presented. She was started on IV fluids and IV insulin. She had quick improvement in her hyperglycemia. The patient had her Lantus increased from 65-75 units however she became hypoglycemic and her dose was decreased back to 70 units. The patient also had complaints of abdominal pain but this has been a chronic condition most likely secondary to her chronic constipation because of opioid use. Patient had an abdominal CT which showed no abnormalities and on the day of discharge her pain was still present but was much improved. Problems with chronic pain and reports that she missed her appointment which was yesterday with her pain management person and is sent home with a prescription of Percocet that she can follow-up with her pain clinic Physical Exam Vital Signs: Temp Pulse Resp BP Pulse Ox 98.2 F 82 16 115/70 100 12/17/16 10:48 12/17/16 10:48 12/17/16 10:48 12/17/16 10:48 12/17/16 10:48 Intake & Output 12/16/16 12/17/16 12/18/16 06:59 06:59 06:59 Intake Total 2186 995 Output Total 3300 2300 Balance -1114 -1305 Weight 56.5 kg 54.1 kg General appearance: PRESENT: no acute distress Eye exam: PRESENT: conjunctiva pink. ABSENT: scleral icterus Ear exam: PRESENT: normal external ear exam Mouth exam: PRESENT: moist, tongue midline Neck exam: ABSENT: JVD Respiratory exam: PRESENT: clear to auscultation megan. ABSENT: rales, rhonchi, wheezes Cardiovascular exam: PRESENT: RRR. ABSENT: diastolic murmur, rubs, systolic murmur GI/Abdominal exam: PRESENT: normal bowel sounds, soft, tenderness - Mild lower quadrant tenderness. ABSENT: distended, guarding, mass, organolmegaly, rebound Extremities exam: ABSENT: calf tenderness, clubbing, pedal edema Neurological exam: PRESENT: alert, awake, oriented to person, oriented to place , oriented to time, oriented to situation, CN II-XII grossly intact. ABSENT: motor sensory deficit Psychiatric exam: PRESENT: appropriate affect Skin exam: PRESENT: dry, intact, warm. ABSENT: cyanosis, rash Results Laboratory Results: 12/17/16 04:30 12/17/16 04:30 12/17/16 12/17/16 04:30 04:30 WBC 5.0 RBC 4.17 Hgb 10.4 L Hct 32.2 L MCV 77 L MCH 25.0 L MCHC 32.3 RDW 15.8 H Plt Count 152 Seg Neutrophils % 63.6 Lymphocytes % 24.2 Monocytes % 8.9 Eosinophils % 2.6 Basophils % 0.7 Absolute Neutrophils 3.2 Absolute Lymphocytes 1.2 Absolute Monocytes 0.4 Absolute Eosinophils 0.1 Absolute Basophils 0.0 Sodium 144.6 Potassium 4.0 Chloride 105 Carbon Dioxide 31 H Anion Gap 9 BUN 11 Creatinine 0.46 L Est GFR ( Amer) > 60 Est GFR (Non-Af Amer) > 60 Glucose 102 Calcium 10.3 H 12/15/16 12/15/16 12/15/16 00:15 00:15 05:58 Creatine Kinase < 20 L < 20 L CK-MB (CK-2) < 0.22 Troponin I < 0.012 12/15/16 12/15/16 12/15/16 05:58 12:59 12:59 Creatine Kinase < 20 L CK-MB (CK-2) < 0.22 0.33 Troponin I < 0.012 < 0.012 Impressions: Chest X-Ray 12/14/16 18:47 IMPRESSION: No acute cardiopulmonary findings. Large hiatal hernia. Abdomen/Pelvis CT 12/15/16 00:00 IMPRESSION: Moderate hiatal hernia. Small colonic diverticulosis. Qualifiers PATEINT BEING DISCHARGED WITH ANY OF THE FOLLOWING DIAGNOSIS?: No Plan Discharge Plan: Patient is discharged home in stable condition we'll follow primary care in 1-2 weeks Time Spent: Greater than 30 Minutes
== END 2016-12-17 11:53 | disposition home or self-care (01) | DRG 639 ==
LOC: ER 17:53 → EH 21:02 → 3W 12-15 00:54
PROVIDERS: ADMIT Internal Medicine; ATTEND Internal Medicine
DX: E11.65 Type 2 diabetes mellitus with hyperglycemia (principal); R10.84 Generalized abdominal pain; J44.9 Chronic obstructive pulmonary disease, unspecified; K59.03 Drug induced constipation; T40.2X5A Adverse effect of other opioids, initial encounter; I10 Essential (primary) hypertension; K21.9 Gastro-esophageal reflux disease without esophagitis; M19.90 Unspecified osteoarthritis, unspecified site; F32.9 Major depressive disorder, single episode, unspecified; F41.9 Anxiety disorder, unspecified; G89.29 Other chronic pain; Z79.4 Long term (current) use of insulin; Z85.43 Personal history of malignant neoplasm of ovary; Z85.828 Personal history of other malignant neoplasm of skin; F17.200 Nicotine dependence, unspecified, uncomplicated
CPT/HCPCS: 36415; 71010; 74176; 80048; 80053; 80307; 81001; 82550; 82553; 82803; 82962; 83036; 83690; 83735; 84100; 84484; 85025; 94640; 96374; 96375; 99291; J1644; J1815; J2060; J2270; J2405; J3480; J7030; J7620

== ENCOUNTER 2016-12-30 05:43 | Inpatient (IN) | payer MEDICAID ==
[2016-12-30] MEDS ORDERED: NORMAL SALINE 1000 ML 1,000 ML IV ONE ×2 (05:53→09:10)
[2016-12-30 06:14] LABS: ABSOLUTE BASOPHILS # (AUTO) 0.1 10^3/uL (0.0-0.2); ABSOLUTE EOSINOPHILS # (AUTO) 0.1 10^3/uL (0.0-0.6); ABSOLUTE LYMPHOCYTES (AUTO) 2.1 10^3/uL (0.5-4.7); ABSOLUTE NEUT (AUTO) 8.4 10^3/uL (1.7-8.2); BASOPHILS % (AUTO) 0.7 % (0-2); HEMATOCRIT 32.1 % (36.0-47.0); HEMOGLOBIN 10.2 g/dL (12.0-15.5); HGB HCT DIFFERENCE -1.5; LYMPHOCYTES % (AUTO) 18.3 % (13-45); MEAN CORPUSCULAR HEMOGLOBIN 24.7 pg (27.0-33.4); MEAN CORPUSCULAR HGB CONC 31.7 g/dL (32.0-36.0); MEAN CORPUSCULAR VOLUME 78 fl (80-97); MONOCYTES % (AUTO) 8.6 % (3-13); RED BLOOD COUNT 4.13 10^6/uL (3.72-5.28); RED CELL DISTRIBUTION WIDTH 16.3 % (11.5-14.0); SEGMENTED NEUTROPHILS % (AUTO) 71.4 % (42-78); WHITE BLOOD COUNT 11.7 10^3/uL (4.0-10.5)
[2016-12-30 06:19] LABS: VENOUS BLOOD BASE EXCESS -0.2 mmol/L; VENOUS BLOOD PCO2 43.1 mmHg (35-63); VENOUS BLOOD PH 7.38 (7.30-7.42)
--- NOTE | 2016-12-30 06:32 | ER Document Report ---
ED General - General Chief Complaint: High Blood Sugar Stated Complaint: BLOOD SUGAR PROBLEM/ALTERED MENTAL STATUS TRAVEL OUTSIDE OF THE [place] IN LAST 30 DAYS: No - HPI Patient complains to provider of: altered mental status elevated blood sugars Notes: Patient presents with altered mental status and elevated blood sugars. Patient has recent admission to the hospital for hyperosmolar syndrome and DKA. According to EMS patient parent had a fall patient has no complains of neck pain are midline back pain was not placed in a C-spine precautions upon transport. Otherwise patient is altered and O 1 patient does note she is is in the hospital based year is 1886 and thinks the president is still [place]. Upon entering room patient was to be in no obvious distress. History of present illness is very limited due to altered mental status - Related Data Allergies/Adverse Reactions: No Known Drug Allergies Allergy (Mild, Verified 12/14/16 17:58) Past Medical History - Social History Smoking Status: Unknown if Ever Smoked Family History: Reviewed & Not Pertinent - Past Medical History Cardiac Medical History: Denies: Hx Congestive Heart Failure, Hx DVT, Hx Heart Attack, Hx Hypercholesterolemia, Hx Hypertension, Hx Pulmonary Embolism Pulmonary Medical History: Reports: Hx Bronchitis, Hx COPD, Hx Pneumonia Neurological Medical History: Reports: Hx Migraine Endocrine Medical History: Reports: Hx Diabetes Mellitus Type 1, Hx Diabetes Mellitus Type 2. Denies: Hx Hyperthyroidism, Hx Hypothyroidism Renal/ Medical History: Denies: Hx Peritoneal Dialysis Malignancy Medical History: Reports: Hx Ovarian Cancer, Hx Skin Cancer GI Medical History: Reports: Hx Gastroesophageal Reflux Disease, Hx Ulcer. Denies: Hx Cirrhosis, Hx Hepatitis Musculoskeltal Medical History: Reports Hx Arthritis, Reports Hx Multiple Sclerosis, Reports Hx Musculoskeletal Deformity, Reports Hx Musculoskeletal Trauma Skin Medical History: Reports Hx Psoriasis Psychiatric Medical History: Reports: Hx Anxiety, Hx Depression Traumatic Medical History: Reports: Hx Fractures - Bilateral humerus Infectious Medical History: Reports: Hx C-Diff. Denies: Hx Hepatitis Past Surgical History: Reports: Hx Genitourinary Surgery - Bladder, Hx Orthopedic Surgery - Right wrist, Hx Tubal Ligation - Immunizations Immunizations up to date: Yes Hx Diphtheria, Pertussis, Tetanus Vaccination: Yes Hx Pneumococcal Vaccination: 06/15/13 Review of Systems - Review of Systems Notes: Altered mental status Physical Exam - Vital signs Vitals: Pulse Ox 97 12/30/16 05:47 Interpretation: Normal - General General appearance: Alert In distress: None - HEENT Head: Normocephalic, Atraumatic Eyes: Normal Pupils: PERRL Notes: No midline neck pain no signs of significant trauma - Respiratory Respiratory status: No respiratory distress Chest status: Nontender Breath sounds: Normal Chest palpation: Normal - Cardiovascular Rhythm: Regular Heart sounds: Normal auscultation Murmur: No - Abdominal Inspection: Normal Distension: No distension Bowel sounds: Normal Tenderness: Nontender Organomegaly: No organomegaly - Back Back: Normal, Nontender - Extremities General upper extremity: Normal inspection, Nontender, Normal color, Normal ROM , Normal temperature General lower extremity: Normal inspection, Nontender, Normal color, Normal ROM , Normal temperature, Normal weight bearing. No: Alecia's sign - Neurological Neuro grossly intact: Yes Cognition: Confused Jose Roberto Coma Scale Eye Opening: Spontaneous [place] Coma Scale Verbal: Confused Jose Roberto Coma Scale Motor: Obeys Commands [place] Coma Scale Total: 14 Speech: Normal Motor strength normal: LUE, RUE, LLE, RLE Sensory: Normal - Psychological Associated symptoms: Normal affect, Normal mood - Skin Skin Temperature: Warm Skin Moisture: Dry Skin Color: Normal Course - Re-evaluation Re-evalutation: 12/30/16 14:27 Patient's blood sugar did return elevated. Patient has minimal elevation in her sternum osmoles. Patient continues to have altered mental status no fever no signs of infectious etiology for altered mental status. Patient is on high doses of oral narcotics more likely possible cause of her altered mental status. Patient's case was referred to the hospital for further evaluation and admission. - Vital Signs Vital signs: Temp Pulse Resp BP Pulse Ox 99.1 F 122 H 20 166/103 H 98 12/30/16 09:00 12/30/16 14:25 12/30/16 14:25 12/30/16 12:01 12/30/16 14:25 - Laboratory Result Diagrams: 12/30/16 05:53 12/30/16 06:52 Laboratory results interpreted by me: 12/30/16 12/30/16 12/30/16 05:47 05:53 06:52 WBC 11.7 H Hgb 10.2 L Hct 32.1 L MCV 78 L MCH 24.7 L MCHC 31.7 L RDW 16.3 H Absolute Neutrophils 8.4 H BUN 24 H Glucose 446 H* POC Glucose 496 H* Serum Osmolality Alkaline Phosphatase 129 H Total Protein 6.1 L Lipase 20.5 L Urine Protein Urine Glucose (UA) Urine Ketones 12/30/16 12/30/16 06:52 06:52 WBC Hgb Hct MCV MCH MCHC RDW Absolute Neutrophils BUN Glucose POC Glucose Serum Osmolality 309 H Alkaline Phosphatase Total Protein Lipase Urine Protein 30 H Urine Glucose (UA) >=500 H Urine Ketones TRACE H Discharge - Discharge Clinical Impression: Hyperglycemia, minimally elevated osmoles Altered mental status Qualifiers: Altered mental status type: unspecified Qualified Code(s): R41.82 - Altered mental status, unspecified Condition: Good Disposition: ADMITTED INPATIENT Admitting Provider: Hospitalist Unit Admitted: [facility]
[2016-12-30 07:26] LABS: URINE BARBITURATES SCREEN NEGATIVE; URINE METHADONE SCREEN NEGATIVE; URINE OPIATES LOW NEGATIVE; URINE PHENCYCLIDINE SCREEN NEGATIVE
[2016-12-30 07:34] LABS: ALANINE AMINOTRANSFERASE 35 U/L (9-52); ALBUMIN 3.5 g/dL (3.5-5.0); ALKALINE PHOSPHATASE 129 U/L (38-126); ANION GAP 13 (5-19); ASPARTATE AMINO TRANSFERASE 29 U/L (14-36); BILIRUBIN,DIRECT 0.3 mg/dL (0.0-0.4); BILIRUBIN,TOTAL 0.6 mg/dL (0.2-1.3); BLOOD UREA NITROGEN 24 mg/dL (7-20); CALCIUM 8.8 mg/dL (8.4-10.2); CARBON DIOXIDE 23 mmol/L (22-30); CHLORIDE 103 mmol/L (98-107); CREATININE RESULT 0.53 mg/dL (0.52-1.25); LIPASE 20.5 U/L (23-300); MAGNESIUM 1.8 mg/dL (1.6-2.3); POTASSIUM 4.7 mmol/L (3.6-5.0); SODIUM 138.7 mmol/L (137-145); TOTAL PROTEIN 6.1 g/dL (6.3-8.2)
[2016-12-30 07:41] LABS: ALCOHOL < 10 mg/dL (NONE DETECTED)
[2016-12-30 07:45] LABS: GLUCOSE 446 mg/dL (75-110)
--- NOTE | 2016-12-30 08:44 | EKG REPORT ---
SEVERITY:- BORDERLINE ECG - SINUS TACHYCARDIA BORDERLINE PROLONGED QT INTERVAL : Confirmed by: Camille Frazier 30-Dec-2016 08:43:21
[2016-12-30 08:52] LABS: AMORPHOUS SEDIMENT,URINE TRACE /HPF; APPEARANCE,URINE TURBID; BILIRUBIN,URINE NEGATIVE (NEGATIVE); GLUCOSE, URINE >=500 mg/dL (NEGATIVE); KETONES,URINE TRACE mg/dL (NEGATIVE); LEUKOCYTE ESTERASE,URINE NEGATIVE (NEGATIVE); NITRITE,URINE NEGATIVE (NEGATIVE); PROTEIN,URINE 30 mg/dL (NEGATIVE); URINE SPECIFIC GRAVITY 1.023; UROBILINOGEN,URINE NEGATIVE mg/dL (<2.0)
[2016-12-30] MEDS ORDERED: LORAZEPAM INJ 2 MG/1 ML VIAL IV ONE ×2 (09:15→15:00)
[2016-12-30] MEDS ORDERED: ZOLPIDEM TARTRATE 5 MG TABLET PO PRN (09:31)
[2016-12-30] MEDS ORDERED: MAGNESIUM HYDROXIDE SUSP 30 ML UDCUP PO PRN (09:31)
[2016-12-30] MEDS ORDERED: ONDANSETRON HCL INJ/PF 4 MG/2 ML SDV IV PRN (09:31)
[2016-12-30] MEDS ORDERED: IPRATROPIUM/ALBUTEROL 0.5-2.5 MG/3 ML AMPUL NEB PRN (09:31)
[2016-12-30] MEDS ORDERED: NORMAL SALINE 1000 ML 1,000 ML IV PRN (09:31)
[2016-12-30] MEDS ORDERED: ACETAMINOPHEN 325 MG TABLET PO PRN (09:31)
[2016-12-30] MEDS ORDERED: DEXTROSE 40% GEL 15 GM TUBE PO PRN ×2 (09:42)
[2016-12-30] MEDS ORDERED: DEXTROSE 50%-WATER 25 GM/50 ML DISP.SYRIN IV PRN ×2 (09:42)
[2016-12-30] MEDS ORDERED: GLUCAGON,HUMAN RECOMB 1 MG INJ IM PRN (09:42)
[2016-12-30] MEDS: DOCUSATE SODIUM 100 MG CAPSULE PO SCH ×2 (11:31→17:50)
[2016-12-30] MEDS: MONTELUKAST SODIUM 10 MG TABLET PO SCH (11:32)
[2016-12-30] MEDS: FAMOTIDINE 20 MG TABLET PO SCH ×2 (11:32→22:00)
[2016-12-30] MEDS: NICOTINE 14 MG/24 HR PATCH.TD24 TD SCH (11:32)
--- NOTE | 2016-12-30 13:32 | PDOC H&P ---
History of Present Illness Admission Date/PCP: 12/30/16 09:29 GIUSEPPE WHITE MD Patient complains of: Altered mental status History of Present Illness: JAMES MORRIS is a 61 year old female who presents to [facility]'s emergency room this morning, after family member found her on the floor home with possible fall and altered mental status. She is known to our service having been recently discharged after having DKA and hyperosmolar syndrome. Patient at present time has undergone evaluation by the emergency room physician. CT of the head and neck were negative. She is not in DKA at the present time. Blood sugars are elevated at 300-400's. Patient answers questions with one or 2 word answers. Her speech is somewhat slurred. Urine drug screen was positive for benzodiazepine. She states she has been taking oxycodone 10 mg pain medicine for pain. There presently is no family members present in the room. Review of systems can not be completed due to patient's mentation. Past Medical History Cardiac Medical History: Denies: Congestive Heart Failure, DVT, Myocardial Infarction, Hyperlipidema, Hypertension, Pulmonary Embolism Pulmonary Medical History: Reports: Bronchitis, Chronic Obstructive Pulmonary Disease (COPD), Pneumonia EENT Medical History: Reports: None Neurological Medical History: Reports: Migraine Endocrine Medical History: Reports: Diabetes Mellitus Type 1, Diabetes Mellitus Type 2 Denies: Hyperthyroidism, Hypothyroidism Renal/ Medical History: Reports: None Malignancy Medical History: Reports: Ovarian Cancer, Skin Cancer GI Medical History: Reports: Gastroesophageal Reflux Disease Denies: Cirrhosis, Hepatitis Musculoskeltal Medical History: Reports: Arthritis Skin Medical History: Reports: Psoriasis Psychiatric Medical History: Reports: Depression Traumatic Medical History: Reports: None Hematology: Reports: Anemia Denies: Hemophilia, Sickle Cell Disease Infectious Medical History: Reports: Clostridium Difficile Past Surgical History Past Surgical History: Reports: Orthopedic Surgery - Right wrist, Tubal Ligation Denies: Amputation Social History Information Source: Patient Lives with: Family Smoking Status: Unknown if Ever Smoked Frequency of Alcohol Use: None Hx Recreational Drug Use: No Drugs: None Hx Prescription Drug Abuse: No - Advance Directive Resuscitation Status: Full Code Surrogate healthcare decision maker:: Nan Muñoz Family History Family History: Reviewed & Not Pertinent Parental Family History Reviewed: Yes Children Family History Reviewed: Yes Sibling(s) Family History Reviewed.: Yes Medication/Allergy Home Medications: Docusate Sodium [Colace 100 mg Capsule] 100 mg PO BID 04/02/17 Etanercept [Enbrel] 50 mg SQ FR@1000 12/15/16 Gabapentin [Neurontin 300 mg Capsule] 300 mg PO Q8 12/15/16 Lidocaine [Lidoderm 5% (700 mg) Transdermal Patch] 1 patch TOP DAILY 12/15/16 Omeprazole 20 mg PO BID 12/15/16 Insulin Glargine,Hum.rec.anlog [Lantus Insulin 100 Unit/mL] 70 unit SUBCUT QHS # 1 insuln.pen 12/17/16 Ipratropium/Albuterol Sulfate [Duoneb 3 ml Ampul] 3 ml NEB RTQ6HP PRN vial.neb 12/17/16 Montelukast Sodium [Singulair 10 mg Tablet] 10 mg PO DAILY tablet 12/17/16 Nicotine [Nicoderm 14 mg/24 Hr Transdermal Patch] 1 each TD DAILY patch.td24 Oxycodone HCl/Acetaminophen [Percocet 10-325 Mg Tablet] 1 each PO Q6HP PRN #30 tablet 12/17/16 Allergies/Adverse Reactions: No Known Drug Allergies Allergy (Mild, Verified 12/14/16 17:58) Review of Systems ROS unobtainable: Due to mental status Physical Exam Vital Signs: Temp Pulse Resp BP Pulse Ox 99.1 F 104 H 30 H 166/103 H 94 12/30/16 09:00 12/30/16 07:14 12/30/16 12:01 12/30/16 12:01 12/30/16 12:01 Intake & Output 12/29/16 12/30/16 12/31/16 06:59 06:59 06:59 Weight 54.1 kg General appearance: PRESENT: no acute distress, disheveled, thin, well-developed Head exam: PRESENT: atraumatic, normocephalic Eye exam: PRESENT: conjunctiva pink, EOMI, PERRLA. ABSENT: scleral icterus Mouth exam: PRESENT: dry mucosa, neck supple, tongue midline Teeth exam: PRESENT: poor dentation Throat exam: PRESENT: post pharyngeal erythema Neck exam: ABSENT: carotid bruit, JVD, lymphadenopathy, thyromegaly Respiratory exam: PRESENT: clear to auscultation megan. ABSENT: rales, rhonchi, wheezes Cardiovascular exam: PRESENT: RRR. ABSENT: diastolic murmur, rubs, systolic murmur Pulses: PRESENT: normal dorsalis pedis pul Vascular exam: PRESENT: normal capillary refill GI/Abdominal exam: PRESENT: normal bowel sounds, soft. ABSENT: distended, guarding, mass, organolmegaly, rebound, tenderness Rectal exam: PRESENT: deferred Extremities exam: PRESENT: full ROM. ABSENT: calf tenderness, clubbing, pedal edema Neurological exam: PRESENT: alert, altered, CN II-XII grossly intact, normal gait Psychiatric exam: PRESENT: agitated, flat affect Skin exam: PRESENT: dry, intact, warm. ABSENT: cyanosis, rash Results Laboratory Results: 12/30/16 10:07 Ammonia 8.7 L 12/30/16 12/30/16 10:07 10:07 Creatine Kinase < 20 L Troponin I < 0.012 Impressions: Cervical Spine CT 12/30/16 06:13 IMPRESSION: NO ACUTE FINDINGS IN THE CERVICAL SPINE. Head CT 12/30/16 06:25 IMPRESSION: No acute findings. Chest X-Ray 12/30/16 06:26 IMPRESSION: NO ACUTE RADIOGRAPHIC FINDING IN THE CHEST. Large chronic hiatal hernia. Chronic right humeral head deformity. Assessment & Plan - Diagnosis (1) Acute encephalopathy Is this a current diagnosis for this admission?: YesPlan: Patient does not appear to have a source of sepsis. This may be related to hyperglycemia and dehydration in combination with narcotic pain medication and anxiolytics. We will rehydrate her with IV fluids. Reduce benzodiazepines and narcotic pain medication and monitor. (2) Hyperglycemia Is this a current diagnosis for this admission?: YesPlan: SLIDING scale insulin and Lantus daily. Will rehydrate with IV normal saline. (3) Chronic pain Qualifiers: Chronic pain type: chronic pain syndrome Qualified Code(s): G89.4 - Chronic pain syndrome Is this a current diagnosis for this admission?: YesPlan: Patient may be overusing prescription narcotic pain medication. We will reduce current dosages and monitor closely. (4) Anxiety Is this a current diagnosis for this admission?: YesPlan: Continue anxiolytics reduced dose (5) COPD (chronic obstructive pulmonary disease) Qualifiers: COPD type: unspecified COPD Qualified Code(s): J44.9 - Chronic obstructive pulmonary disease, unspecified Is this a current diagnosis for this admission?: YesPlan: Continue present home inhalers (6) Hypertension Qualifiers: Hypertension type: essential hypertension Qualified Code(s): I10 - Essential (primary) hypertension Is this a current diagnosis for this admission?: YesPlan: Continue home medications. (7) Opiate dependence Qualifiers: Substance use status: uncomplicated Qualified Code(s): F11.20 - Opioid dependence, uncomplicated Is this a current diagnosis for this admission?: YesPlan: Patient needs to have reduced dosages the present time. (8) DVT prophylaxis Is this a current diagnosis for this admission?: YesPlan: Lovenox subcutaneous daily - Time Time Spent: 50 to 70 Minutes Critical Time spent with patient: 25-34 minutes Medications reviewed and adjusted accordingly: Yes Anticipated discharge: Home with Homehealth
[2016-12-30] MEDS: GABAPENTIN 300 MG CAPSULE PO SCH ×2 (14:15→22:00)
[2016-12-30] MEDS ORDERED: INSULIN REG, HUMAN 100 UNIT/ML 3 ML VIAL (PYX) IV ONE ×2 (14:15→16:48)
[2016-12-30] MEDS ORDERED: LORAZEPAM INJ 2 MG/1 ML VIAL IV PRN (15:00)
[2016-12-30] MEDS ORDERED: MORPHINE SULFATE 10 MG/ML INJ IV ONE (15:01)
[2016-12-30] MEDS ORDERED: HALOPERIDOL LACTATE INJ 5 MG/1 ML VIAL IV PRN (16:49)
[2016-12-30] MEDS ORDERED: METOPROLOL TARTRATE PF/INJ 5 MG/5 ML SDV IV PRN (16:51)
[2016-12-30] MEDS ORDERED: METOPROLOL TARTRATE PF/INJ 5 MG/5 ML SDV IV ONE (16:51)
[2016-12-30] MEDS: MORPHINE SULFATE 10 MG/ML INJ IV PRN (20:37)
[2016-12-30] MEDS: INSULIN LISPRO 100 UNIT/ML 3 ML VIAL SUBCUT PRN (22:00)
[2016-12-30] MEDS: INSULIN GLARGINE,HUM.REC.ANLOG 300 UNIT/3 ML INSULN.PEN SUBCUT SCH (22:00)
[2016-12-30] MEDS: NORMAL SALINE 1000 ML 1,000 ML IV PRN (23:01)
[2016-12-31] MEDS: MORPHINE SULFATE 10 MG/ML INJ IV PRN ×5 (04:13→21:29)
[2016-12-31] MEDS: GABAPENTIN 300 MG CAPSULE PO SCH ×3 (06:48→21:54)
[2016-12-31 07:04] LABS: ABSOLUTE LYMPHOCYTES (AUTO) 2.3 10^3/uL (0.5-4.7); ABSOLUTE MONOCYTES (AUTO) 1.1 10^3/uL (0.1-1.4); ABSOLUTE NEUT (AUTO) 8.5 10^3/uL (1.7-8.2); BASOPHILS % (AUTO) 0.3 % (0-2); EOSINOPHILS % (AUTO) 0.4 % (0-6); HEMATOCRIT 23.4 % (36.0-47.0); HGB HCT DIFFERENCE -1.8; MEAN CORPUSCULAR HEMOGLOBIN 24.1 pg (27.0-33.4); MEAN CORPUSCULAR HGB CONC 30.9 g/dL (32.0-36.0); MEAN CORPUSCULAR VOLUME 78 fl (80-97); MONOCYTES % (AUTO) 9.5 % (3-13); RED CELL DISTRIBUTION WIDTH 16.4 % (11.5-14.0); SEGMENTED NEUTROPHILS % (AUTO) 70.8 % (42-78)
[2016-12-31 07:16] LABS: ANION GAP 11 (5-19); BLOOD UREA NITROGEN 24 mg/dL (7-20); CARBON DIOXIDE 19 mmol/L (22-30); CHLORIDE 115 mmol/L (98-107); CREATININE RESULT 0.42 mg/dL (0.52-1.25); GLUCOSE 262 mg/dL (75-110); MAGNESIUM 1.8 mg/dL (1.6-2.3); POTASSIUM 3.8 mmol/L (3.6-5.0); SODIUM 144.5 mmol/L (137-145)
[2016-12-31 07:39] LABS: HEMOGLOBIN 7.2 g/dL (12.0-15.5)
[2016-12-31] MEDS: INSULIN LISPRO 100 UNIT/ML 3 ML VIAL SUBCUT PRN ×3 (08:11→16:08)
[2016-12-31] MEDS: ENOXAPARIN SODIUM INJ 40 MG/0.4 ML DISP.SYRIN SUBCUT SCH (09:32)
[2016-12-31] MEDS: DOCUSATE SODIUM 100 MG CAPSULE PO SCH ×2 (09:35→16:53)
[2016-12-31] MEDS: FAMOTIDINE 20 MG TABLET PO SCH ×2 (09:35→21:54)
[2016-12-31] MEDS: NICOTINE 14 MG/24 HR PATCH.TD24 TD SCH (09:36)
[2016-12-31] MEDS: MONTELUKAST SODIUM 10 MG TABLET PO SCH (09:36)
[2016-12-31] MEDS: NORMAL SALINE 1000 ML 1,000 ML IV PRN (09:36)
--- NOTE | 2016-12-31 10:38 | Progress Note ---
Provider Note Provider Note: ALEXANDRA RAMIREZ Search Criteria: Last Name 'Alexandra' and First Name 'Sammi' and = '' and Request Period = '07/04/16' to '12/31/16' - 4 out of 4 Recipients Selected. Fill Date Product, Str, Form Qty Days Pt ID Prescriber Written RX# N/R* Pharm MED+ ------ ---- --------- --- ------- ----- --------- ------ 12/23/2016 HYDROCODON-ACETAMINOPHEN 5-325 60.00 15 [id number] 2016 [id number] N [id number] 20.0 12/17/2016 OXYCODONE-ACETAMINOPHEN 10-325 30.00 7 [id number] 12/17/2016 [id number] N [id number] 64.29 12/03/2016 HYDROMET SYRUP 100.00 5 [id number] 12/03/2016 [id number] N [id number] 00.0 11/28/2016 DIPHENOXYLATE-ATROP 2.5-0.025 20.00 5 [id number] 11/28/2016 [id number] N [id number] 00.0 11/21/2016 HYDROCODON-ACETAMINOPHEN 5-325 60.00 15 [id number] 2016 [id number] N [id number] 20.0 11/18/2016 HYDROMET SYRUP 100.00 6 [id number] 11/18/2016 [id number] N [id number] 00.0 11/12/2016 HYDROMET SYRUP 100.00 6 [id number] 11/12/2016 [id number] N [id number] 00.0 11/05/2016 HYDROCODON-ACETAMINOPHEN 5-325 60.00 15 [id number] 2016 [id number] N [id number] 20.0 10/14/2016 TRAMADOL HCL 50 MG TABLET 40.00 7 [id number] 10/14/2016 [id number] N [id number] 28.57 10/10/2016 HYDROCODONE-HOMATROPINE SYRUP 80.00 6 [id number] 10/10/2016 [id number] N [id number] 00.0 09/19/2016 HYDROCODON-ACETAMINOPH 7.5-325 120.00 30 [id number] 2016 [id number] N [id number] 30.0 08/22/2016 DIPHENOXYLATE-ATROP 2.5-0.025 28.00 7 [id number] 08/22/2016 [id number] N [id number] 00.0 08/22/2016 HYDROCODON-ACETAMINOPHN 10-325 120.00 30 [id number] 2015 [id number] N [id number] 40.0 08/16/2016 DIPHENOXYLATE-ATROP 2.5-0.025 28.00 7 [id number] 05/15/2016 [id number] N [id number] 00.0 08/12/2016 OXYCODONE-ACETAMINOPHEN 5-325 30.00 5 [id number] 08/12/2016 [id number] N [id number] 45.0 07/25/2016 HYDROCODON-ACETAMINOPHN 10-325 120.00 20 [id number] 2015 [id number] N [id number] 60.0 *N/R N=New R=Refill +MED Daily Prescribers for prescriptions listed [id number] GIUSEPPE WHITE MD; [facility], [address] [id number] [facility] [place]; [address] [facility] [address] [id number] DEXTER GUERRA; [facility], [address] [place] [address] Pharmacies that dispensed prescriptions listed [id number] [facility]; [address] [facility] [id number], Patients that match search criteria [id number] ALEXANDRA RAMIREZ, 55; [address] [id number] ALEXANDRA RAMIREZ, 55; [address] [address] [id number] ALEXANDRA RAMIREZ, 55; [address] [address] [id number] ALEXANDRA RAMIREZ, 55; [address] [facility] [id number] MED Summary This section displays cumulative MED values by unique recipient. The MED Max value is the maximum occurrence of cumulative MED
[2016-12-31] MEDS ORDERED: ACETAMINOPHEN 325 MG TABLET PO PRN (13:12)
[2016-12-31] MEDS ORDERED: DIPHENHYDRAMINE HCL 25 MG CAPSULE PO PRN (13:12)
[2016-12-31] MEDS ORDERED: NORMAL SALINE 250 ML IV PRN ×2 (13:12)
[2016-12-31] MEDS ORDERED: FUROSEMIDE INJ/PF 20 MG/2 ML SDV IV PRN (13:12)
[2016-12-31] MEDS ORDERED: NORMAL SALINE 1000 ML 1,000 ML IV PRN (14:35)
--- NOTE | 2016-12-31 14:36 | PDOC PROGRESS REPORT ---
Subjective Progress Note for:: 12/31/16 Subjective:: The patient was seen earlier today on rounds. The patient is somewhat delayed and was unable to state the year. The patient denies any nausea, vomiting, diarrhea, shortness of breath, dizziness, chest pain, heart palpitations, fevers , or chills. The patient has remained afebrile. Blood pressures have been in a good range. The patient is agreeable to blood transfusion. When prompted the patient voices no other concerns at this time. Review of systems: The rest of the review of systems is negative. Physical Exam Vital Signs: Temp Pulse Resp BP Pulse Ox 97.8 F 109 H 20 112/59 L 100 12/31/16 12:25 12/31/16 12:25 12/31/16 12:25 12/31/16 12:25 12/31/16 12:25 Intake & Output 12/29/16 12/30/16 12/31/16 23:59 23:59 23:59 Intake Total 850 1770 Balance 850 1770 Weight 54.1 kg 54.3 kg General appearance: PRESENT: no acute distress, disheveled, thin, well-developed Head exam: PRESENT: atraumatic, normocephalic Eye exam: PRESENT: conjunctiva pink, EOMI, PERRLA. ABSENT: scleral icterus Ear exam: PRESENT: normal external ear exam Mouth exam: PRESENT: moist, tongue midline Neck exam: ABSENT: carotid bruit, JVD, lymphadenopathy, thyromegaly Respiratory exam: PRESENT: clear to auscultation megan. ABSENT: rales, rhonchi, wheezes Cardiovascular exam: PRESENT: RRR. ABSENT: diastolic murmur, rubs, systolic murmur Pulses: PRESENT: normal dorsalis pedis pul Vascular exam: PRESENT: normal capillary refill GI/Abdominal exam: PRESENT: normal bowel sounds, soft. ABSENT: distended, guarding, mass, organolmegaly, rebound, tenderness Rectal exam: PRESENT: deferred Extremities exam: PRESENT: full ROM. ABSENT: calf tenderness, clubbing, pedal edema Neurological exam: PRESENT: alert, awake, oriented to person, oriented to place , oriented to time, oriented to situation, CN II-XII grossly intact. ABSENT: motor sensory deficit Psychiatric exam: PRESENT: anxious, normal mood. ABSENT: homicidal ideation, suicidal ideation Skin exam: PRESENT: dry, intact, mottled, pallor, warm. ABSENT: cyanosis, rash Results Laboratory Results: 12/31/16 06:41 12/31/16 06:41 12/31/16 12/31/16 06:41 06:41 WBC 12.0 H RBC 3.00 L Hgb 7.2 L D Hct 23.4 L MCV 78 L MCH 24.1 L MCHC 30.9 L RDW 16.4 H Plt Count 217 Seg Neutrophils % 70.8 Lymphocytes % 19.0 Monocytes % 9.5 Eosinophils % 0.4 Basophils % 0.3 Absolute Neutrophils 8.5 H Absolute Lymphocytes 2.3 Absolute Monocytes 1.1 Absolute Eosinophils 0.0 Absolute Basophils 0.0 Sodium 144.5 Potassium 3.8 Chloride 115 H Carbon Dioxide 19 L Anion Gap 11 BUN 24 H Creatinine 0.42 L Est GFR ( Amer) > 60 Est GFR (Non-Af Amer) > 60 Glucose 262 H Calcium 9.0 Magnesium 1.8 12/30/16 12/30/16 12/30/16 10:07 10:07 16:00 Creatine Kinase < 20 L < 20 L Troponin I < 0.012 12/30/16 12/30/16 12/30/16 16:00 21:40 21:40 Creatine Kinase < 20 L Troponin I < 0.012 < 0.012 Impressions: Cervical Spine CT 12/30/16 06:13 IMPRESSION: NO ACUTE FINDINGS IN THE CERVICAL SPINE. Head CT 12/30/16 06:25 IMPRESSION: No acute findings. Chest X-Ray 12/30/16 06:26 IMPRESSION: NO ACUTE RADIOGRAPHIC FINDING IN THE CHEST. Large chronic hiatal hernia. Chronic right humeral head deformity. Assessment & Plan - Diagnosis (1) Hyperosmolar non-ketotic state in patient with type 2 diabetes mellitus Is this a current diagnosis for this admission?: YesPlan: This has improved with hydration and insulin administration. Will continue to hydrate and followed. (2) Acute encephalopathy Is this a current diagnosis for this admission?: Yes (3) Psoriasis Is this a current diagnosis for this admission?: Yes (4) COPD (chronic obstructive pulmonary disease) Qualifiers: COPD type: unspecified COPD Qualified Code(s): J44.9 - Chronic obstructive pulmonary disease, unspecified Is this a current diagnosis for this admission?: Yes (5) Constipation due to opioid therapy Is this a current diagnosis for this admission?: Yes (6) Hypertension Qualifiers: Hypertension type: essential hypertension Qualified Code(s): I10 - Essential (primary) hypertension Is this a current diagnosis for this admission?: Yes (7) Acute on chronic anemia Is this a current diagnosis for this admission?: YesPlan: Most likely underlying anemia of chronic disease. Will type and cross transfuse the patient has required transfusion in the past. (8) Opiate dependence, continuous Is this a current diagnosis for this admission?: Yes (9) Benzodiazepine dependence, continuous Is this a current diagnosis for this admission?: Yes (10) DVT prophylaxis Is this a current diagnosis for this admission?: Yes (11) Tobacco use disorder Is this a current diagnosis for this admission?: Yes - Time Time Spent with patient: 25-34 minutes Medications reviewed and adjusted accordingly: Yes Anticipated discharge: Home Within: within 48 hours
[2016-12-31] MEDS: INSULIN GLARGINE,HUM.REC.ANLOG 300 UNIT/3 ML INSULN.PEN SUBCUT SCH (21:58)
[2017-01-01] MEDS: MORPHINE SULFATE 10 MG/ML INJ IV PRN ×6 (02:00→22:44)
[2017-01-01] MEDS: GABAPENTIN 300 MG CAPSULE PO SCH ×3 (05:58→22:44)
[2017-01-01] MEDS: ENOXAPARIN SODIUM INJ 40 MG/0.4 ML DISP.SYRIN SUBCUT SCH (08:43)
[2017-01-01] MEDS: DOCUSATE SODIUM 100 MG CAPSULE PO SCH ×2 (09:12→17:37)
[2017-01-01] MEDS: NICOTINE 14 MG/24 HR PATCH.TD24 TD SCH (09:13)
[2017-01-01] MEDS: MONTELUKAST SODIUM 10 MG TABLET PO SCH (09:13)
[2017-01-01] MEDS: FAMOTIDINE 20 MG TABLET PO SCH ×2 (09:13→22:44)
[2017-01-01] MEDS: INSULIN LISPRO 100 UNIT/ML 3 ML VIAL SUBCUT PRN ×2 (11:55→22:57)
[2017-01-01] MEDS ORDERED: INSULIN GLARGINE,HUM.REC.ANLOG 300 UNIT/3 ML INSULN.PEN SUBCUT ONE (16:30)
--- NOTE | 2017-01-01 17:28 | PDOC PROGRESS REPORT ---
Subjective Progress Note for:: 01/01/17 Subjective:: The patient was seen earlier today on rounds. The patient is somewhat delayed. There is concern that the patient is unable to further live alone given the amount of admissions syncopal episodes polypharmacy use and poor memory. The patient denies any nausea, vomiting, diarrhea, shortness of breath, dizziness, chest pain, heart palpitations, fevers, or chills. The patient has remained afebrile. Blood pressures have been in a good range. TWhen prompted the patient voices no other concerns at this time. Review of systems: The rest of the review of systems is negative. Physical Exam Vital Signs: Temp Pulse Resp BP Pulse Ox 98.8 F 99 20 132/76 H 99 01/01/17 16:36 01/01/17 16:36 01/01/17 16:36 01/01/17 16:36 01/01/17 16:36 Intake & Output 12/30/16 12/31/16 01/01/17 23:59 23:59 23:59 Intake Total 850 3431 1595 Balance 850 3431 1595 Weight 54.1 kg 54.3 kg 54 kg General appearance: PRESENT: no acute distress, disheveled, thin Head exam: PRESENT: atraumatic, normocephalic Eye exam: PRESENT: conjunctiva pink, EOMI, PERRLA. ABSENT: scleral icterus Ear exam: PRESENT: normal external ear exam Mouth exam: PRESENT: moist, tongue midline Neck exam: ABSENT: carotid bruit, JVD, lymphadenopathy, thyromegaly Respiratory exam: PRESENT: clear to auscultation megan. ABSENT: rales, rhonchi, wheezes Cardiovascular exam: PRESENT: RRR. ABSENT: diastolic murmur, rubs, systolic murmur Pulses: PRESENT: normal dorsalis pedis pul Vascular exam: PRESENT: normal capillary refill GI/Abdominal exam: PRESENT: normal bowel sounds, soft. ABSENT: distended, guarding, mass, organolmegaly, rebound, tenderness Rectal exam: PRESENT: deferred Extremities exam: PRESENT: full ROM. ABSENT: calf tenderness, clubbing, pedal edema Neurological exam: PRESENT: alert, awake, oriented to person, oriented to place , oriented to time, oriented to situation, CN II-XII grossly intact. ABSENT: motor sensory deficit Psychiatric exam: PRESENT: appropriate affect, normal mood. ABSENT: homicidal ideation, suicidal ideation Skin exam: PRESENT: dry, intact, warm. ABSENT: cyanosis, rash Results Laboratory Results: 12/31/16 06:41 12/31/16 06:41 12/31/16 13:29 Blood Type O POSITIVE Antibody Screen NEGATIVE 12/30/16 12/30/16 12/30/16 10:07 10:07 16:00 Creatine Kinase < 20 L < 20 L Troponin I < 0.012 12/30/16 12/30/16 12/30/16 16:00 21:40 21:40 Creatine Kinase < 20 L Troponin I < 0.012 < 0.012 Impressions: Cervical Spine CT 12/30/16 06:13 IMPRESSION: NO ACUTE FINDINGS IN THE CERVICAL SPINE. Head CT 12/30/16 06:25 IMPRESSION: No acute findings. Chest X-Ray 12/30/16 06:26 IMPRESSION: NO ACUTE RADIOGRAPHIC FINDING IN THE CHEST. Large chronic hiatal hernia. Chronic right humeral head deformity. Assessment & Plan - Diagnosis (1) Hyperosmolar non-ketotic state in patient with type 2 diabetes mellitus Is this a current diagnosis for this admission?: YesPlan: This has improved with hydration and insulin administration will increase basal dose by adding a.m. dosage.. Will continue to hydrate and followed. (2) Acute encephalopathy Is this a current diagnosis for this admission?: YesPlan: Most likely multifocal including polypharmacy and general deconditioned state (3) Psoriasis Is this a current diagnosis for this admission?: Yes (4) COPD (chronic obstructive pulmonary disease) Qualifiers: COPD type: unspecified COPD Qualified Code(s): J44.9 - Chronic obstructive pulmonary disease, unspecified Is this a current diagnosis for this admission?: Yes (5) Constipation due to opioid therapy Is this a current diagnosis for this admission?: Yes (6) Hypertension Qualifiers: Hypertension type: essential hypertension Qualified Code(s): I10 - Essential (primary) hypertension Is this a current diagnosis for this admission?: Yes (7) Acute on chronic anemia Is this a current diagnosis for this admission?: YesPlan: Most likely underlying anemia of chronic disease. Will type and cross transfuse the patient has required transfusion in the past. (8) Opiate dependence, continuous Is this a current diagnosis for this admission?: Yes (9) Benzodiazepine dependence, continuous Is this a current diagnosis for this admission?: Yes (10) DVT prophylaxis Is this a current diagnosis for this admission?: Yes (11) Tobacco use disorder Is this a current diagnosis for this admission?: Yes - Time Time Spent with patient: 25-34 minutes Medications reviewed and adjusted accordingly: Yes
[2017-01-01] MEDS: INSULIN GLARGINE,HUM.REC.ANLOG 300 UNIT/3 ML INSULN.PEN SUBCUT SCH (22:57)
[2017-01-02] MEDS: MORPHINE SULFATE 10 MG/ML INJ IV PRN ×2 (03:00→07:32)
[2017-01-02] MEDS: GABAPENTIN 300 MG CAPSULE PO SCH ×3 (06:39→22:41)
[2017-01-02 06:43] LABS: ANION GAP 10 (5-19); BLOOD UREA NITROGEN 6 mg/dL (7-20); CALCIUM 8.7 mg/dL (8.4-10.2); CARBON DIOXIDE 22 mmol/L (22-30); CHLORIDE 110 mmol/L (98-107); CREATININE RESULT 0.39 mg/dL (0.52-1.25); GLUCOSE 90 mg/dL (75-110); MAGNESIUM 1.7 mg/dL (1.6-2.3); POTASSIUM 3.4 mmol/L (3.6-5.0); SODIUM 142.1 mmol/L (137-145)
[2017-01-02 06:47] LABS: HEMATOCRIT 27.1 % (36.0-47.0); HGB HCT DIFFERENCE 0.5; MEAN CORPUSCULAR HEMOGLOBIN 26.4 pg (27.0-33.4); MEAN CORPUSCULAR VOLUME 78 fl (80-97); RED CELL DISTRIBUTION WIDTH 16.1 % (11.5-14.0); WHITE BLOOD COUNT 5.8 10^3/uL (4.0-10.5)
[2017-01-02 06:48] LABS: HEMOGLOBIN 9.2 g/dL (12.0-15.5)
[2017-01-02] MEDS: ENOXAPARIN SODIUM INJ 40 MG/0.4 ML DISP.SYRIN SUBCUT SCH (07:39)
[2017-01-02] MEDS ORDERED: IPRATROPIUM/ALBUTEROL 0.5-2.5 MG/3 ML AMPUL NEB PRN (09:56)
[2017-01-02] MEDS ORDERED: POTASSIUM CHLORIDE 10 MEQ TABLET.SA PO ONE (10:00)
[2017-01-02] MEDS: INSULIN GLARGINE,HUM.REC.ANLOG 300 UNIT/3 ML INSULN.PEN SUBCUT SCH ×2 (11:03→22:42)
[2017-01-02] MEDS: DOCUSATE SODIUM 100 MG CAPSULE PO SCH ×2 (11:04→17:05)
[2017-01-02] MEDS: NICOTINE 14 MG/24 HR PATCH.TD24 TD SCH (11:06)
[2017-01-02] MEDS: MONTELUKAST SODIUM 10 MG TABLET PO SCH (11:06)
[2017-01-02] MEDS: FAMOTIDINE 20 MG TABLET PO SCH ×2 (11:11→22:41)
[2017-01-02] MEDS: INSULIN LISPRO 100 UNIT/ML 3 ML VIAL SUBCUT PRN (11:13)
[2017-01-02] MEDS ORDERED: TRAMADOL HCL 50 MG TABLET PO PRN (11:56)
--- NOTE | 2017-01-02 16:05 | PDOC PROGRESS REPORT ---
Subjective Progress Note for:: 01/02/17 Subjective:: The patient was seen earlier today on rounds. The patient is more awake than she was yesterday. Had a lengthy discussion with the patient's daughter. There is concern that the patient is unable to further live alone given the amount of admissions syncopal episodes polypharmacy use and poor memory. It appears the patient has had 7 ER contacts with 5 separate inpatient admissions in the past 6 months alone. The patient has been discharged with home health however she dismisses them and does not utilize the service. The patient complains of lower back pain which is more intense than usual. The patient denies any nausea, vomiting, diarrhea, shortness of breath, dizziness, chest pain, heart palpitations, fevers, or chills. The patient has remained afebrile. Blood pressures have been in a good range. TWhen prompted the patient voices no other concerns at this time. Review of systems: The rest of the review of systems is negative. Physical Exam Vital Signs: Temp Pulse Resp BP Pulse Ox 98.4 F 110 H 20 127/70 H 99 01/02/17 12:05 01/02/17 12:05 01/02/17 12:05 01/02/17 12:05 01/02/17 12:05 Intake & Output 12/31/16 01/01/17 01/02/17 23:59 23:59 23:59 Intake Total 3431 2611 1201 Output Total 1800 Balance 3431 2611 -599 Weight 54.3 kg 54 kg 56.6 kg General appearance: PRESENT: cooperative, disheveled, thin, well-developed Head exam: PRESENT: atraumatic, normocephalic Eye exam: PRESENT: conjunctiva pink, EOMI, PERRLA. ABSENT: scleral icterus Ear exam: PRESENT: normal external ear exam Mouth exam: PRESENT: moist, tongue midline Neck exam: ABSENT: carotid bruit, JVD, lymphadenopathy, thyromegaly Respiratory exam: PRESENT: clear to auscultation megan, symmetrical, unlabored. ABSENT: rales, rhonchi, tachypnea, wheezes Cardiovascular exam: PRESENT: RRR. ABSENT: diastolic murmur, rubs, systolic murmur Pulses: PRESENT: normal dorsalis pedis pul Vascular exam: PRESENT: normal capillary refill GI/Abdominal exam: PRESENT: normal bowel sounds, soft. ABSENT: distended, guarding, mass, organolmegaly, rebound, tenderness Rectal exam: PRESENT: deferred Extremities exam: PRESENT: full ROM. ABSENT: calf tenderness, clubbing, pedal edema Neurological exam: PRESENT: alert, awake, oriented to person, oriented to place , oriented to time, oriented to situation, CN II-XII grossly intact. ABSENT: motor sensory deficit Psychiatric exam: PRESENT: appropriate affect, normal mood. ABSENT: homicidal ideation, suicidal ideation Skin exam: PRESENT: dry, intact, pallor, warm. ABSENT: cyanosis, rash Results Laboratory Results: 01/02/17 06:04 01/02/17 06:04 01/02/17 01/02/17 06:04 06:04 WBC 5.8 RBC 3.50 L Hgb 9.2 L Hct 27.1 L MCV 78 L MCH 26.4 L MCHC 34.0 RDW 16.1 H Plt Count 118 L Sodium 142.1 Potassium 3.4 L Chloride 110 H Carbon Dioxide 22 Anion Gap 10 BUN 6 L Creatinine 0.39 L Est GFR ( Amer) > 60 Est GFR (Non-Af Amer) > 60 Glucose 90 Calcium 8.7 Magnesium 1.7 12/30/16 12/30/16 12/30/16 10:07 10:07 16:00 Creatine Kinase < 20 L < 20 L Troponin I < 0.012 12/30/16 12/30/16 12/30/16 16:00 21:40 21:40 Creatine Kinase < 20 L Troponin I < 0.012 < 0.012 Impressions: Cervical Spine CT 12/30/16 06:13 IMPRESSION: NO ACUTE FINDINGS IN THE CERVICAL SPINE. Head CT 12/30/16 06:25 IMPRESSION: No acute findings. Chest X-Ray 12/30/16 06:26 IMPRESSION: NO ACUTE RADIOGRAPHIC FINDING IN THE CHEST. Large chronic hiatal hernia. Chronic right humeral head deformity. Lumbar Spine X-Ray 01/02/17 00:00 IMPRESSION: 50% compression deformity of L2 with mild retropulsion. This is new from December 15. Assessment & Plan - Diagnosis (1) Hyperosmolar non-ketotic state in patient with type 2 diabetes mellitus Is this a current diagnosis for this admission?: YesPlan: This has improved with hydration and insulin administration. I made the patient aware that she is on her home basal doses of insulin. His has been the trend when the patient is admitted she is resumed on her home medications and does quite well. Will continue to hydrate and followed. I emphasized to the patient that there must be an element of noncompliance for the patient to become so sickly given that her blood glucoses are reasonably controlled in the hospital setting. The patient is agreeable to this and states that she may miss doses of insulin. The patient and daughter both state that the patient is grossly under adherent to dietary regulations and drinks multiple bottles of Mountain Dew a day. (2) Acute encephalopathy Is this a current diagnosis for this admission?: YesPlan: Most likely multifocal including polypharmacy and general deconditioned state (3) Psoriasis Is this a current diagnosis for this admission?: Yes (4) COPD (chronic obstructive pulmonary disease) Qualifiers: COPD type: unspecified COPD Qualified Code(s): J44.9 - Chronic obstructive pulmonary disease, unspecified Is this a current diagnosis for this admission?: Yes (5) Constipation due to opioid therapy Is this a current diagnosis for this admission?: Yes (6) Hypertension Qualifiers: Hypertension type: essential hypertension Qualified Code(s): I10 - Essential (primary) hypertension Is this a current diagnosis for this admission?: Yes (7) Acute on chronic anemia Is this a current diagnosis for this admission?: YesPlan: Most likely underlying anemia of chronic disease. Will type and cross transfuse the patient has required transfusion in the past. (8) Opiate dependence, continuous Is this a current diagnosis for this admission?: Yes (9) Benzodiazepine dependence, continuous Is this a current diagnosis for this admission?: Yes (10) DVT prophylaxis Is this a current diagnosis for this admission?: Yes (11) Tobacco use disorder Is this a current diagnosis for this admission?: Yes (12) Lower back pain Qualifiers: Chronicity: acute Back pain laterality: midline Sciatica presence: without sciatica Qualified Code(s): M54.5 - Low back pain Is this a current diagnosis for this admission?: YesPlan: This is acute on chronic. Will obtain images of lumbar spine and followed. - Time Time Spent with patient: 25-34 minutes Medications reviewed and adjusted accordingly: Yes Anticipated discharge: Home with Homehealth Within: within 24 hours, within 48 hours Disposition: The patient is a full code. Pending patient's symptomatology and diagnostic findings will reevaluate in the a.m.
[2017-01-02] MEDS: HYDROCODONE/ACETAMINOPHEN 10-325 MG TABLET PO PRN ×2 (17:05→22:40)
[2017-01-02] MEDS ORDERED: INSULIN GLARGINE,HUM.REC.ANLOG 1,000 UNIT/10 ML UNIT SUBCUT ONE (22:45)
[2017-01-03] MEDS: HYDROCODONE/ACETAMINOPHEN 10-325 MG TABLET PO PRN ×2 (04:50→11:18)
[2017-01-03] MEDS: GABAPENTIN 300 MG CAPSULE PO SCH ×2 (06:35→14:21)
[2017-01-03 07:44] LABS: ANION GAP 8 (5-19); BLOOD UREA NITROGEN 9 mg/dL (7-20); CALCIUM 9.1 mg/dL (8.4-10.2); CARBON DIOXIDE 25 mmol/L (22-30); CHLORIDE 107 mmol/L (98-107); CREATININE RESULT 0.44 mg/dL (0.52-1.25); GLUCOSE 102 mg/dL (75-110); POTASSIUM 3.4 mmol/L (3.6-5.0); SODIUM 139.8 mmol/L (137-145)
[2017-01-03] MEDS: NICOTINE 14 MG/24 HR PATCH.TD24 TD SCH (09:16)
[2017-01-03] MEDS: DOCUSATE SODIUM 100 MG CAPSULE PO SCH (09:17)
[2017-01-03] MEDS: FAMOTIDINE 20 MG TABLET PO SCH (09:18)
[2017-01-03] MEDS: MONTELUKAST SODIUM 10 MG TABLET PO SCH (09:18)
[2017-01-03 10:07] LABS: ABSOLUTE EOSINOPHILS # (AUTO) 0.1 10^3/uL (0.0-0.6); ABSOLUTE LYMPHOCYTES (AUTO) 0.8 10^3/uL (0.5-4.7); ABSOLUTE MONOCYTES (AUTO) 0.7 10^3/uL (0.1-1.4); BASOPHILS % (AUTO) 0.4 % (0-2); EOSINOPHILS % (AUTO) 1.8 % (0-6); HEMATOCRIT 27.4 % (36.0-47.0); HEMOGLOBIN 9.1 g/dL (12.0-15.5); HGB HCT DIFFERENCE -0.1; LYMPHOCYTES % (AUTO) 11.7 % (13-45); MEAN CORPUSCULAR HGB CONC 33.3 g/dL (32.0-36.0); MEAN CORPUSCULAR VOLUME 78 fl (80-97); MONOCYTES % (AUTO) 10.4 % (3-13); RED BLOOD COUNT 3.52 10^6/uL (3.72-5.28); RED CELL DISTRIBUTION WIDTH 16.2 % (11.5-14.0); SEGMENTED NEUTROPHILS % (AUTO) 75.7 % (42-78); WHITE BLOOD COUNT 6.6 10^3/uL (4.0-10.5)
[2017-01-03] MEDS ORDERED: POTASSIUM CHLORIDE 10 MEQ TABLET.SA PO ONE (11:00)
[2017-01-03] MEDS: ENOXAPARIN SODIUM INJ 40 MG/0.4 ML DISP.SYRIN SUBCUT SCH (11:22)
[2017-01-03] MEDS: INSULIN GLARGINE,HUM.REC.ANLOG 300 UNIT/3 ML INSULN.PEN SUBCUT SCH (11:24)
[2017-01-03] MEDS: INSULIN LISPRO 100 UNIT/ML 3 ML VIAL SUBCUT PRN (11:29)
[2017-01-03 15:55] VITALS: BP 118/65
--- NOTE | 2017-01-05 10:30 | PDOC DISCHARGE SUMMARY ---
General - Admit/Disc Date/PCP Admission Date/Primary Care Provider: 12/30/16 09:31 GIUSEPPE ROMAN MD Discharge Date: 01/03/17 - Discharge Diagnosis (1) Hyperosmolar non-ketotic state in patient with type 2 diabetes mellitus Is this a current diagnosis for this admission?: Yes (2) Acute encephalopathy Is this a current diagnosis for this admission?: Yes (3) Noncompliance Is this a current diagnosis for this admission?: Yes (4) Psoriasis Is this a current diagnosis for this admission?: Yes (5) COPD (chronic obstructive pulmonary disease) Is this a current diagnosis for this admission?: Yes (6) Constipation due to opioid therapy Is this a current diagnosis for this admission?: Yes (7) Hypertension Is this a current diagnosis for this admission?: Yes (8) Acute on chronic anemia Is this a current diagnosis for this admission?: Yes (9) Opiate dependence, continuous Is this a current diagnosis for this admission?: Yes (10) Benzodiazepine dependence, continuous Is this a current diagnosis for this admission?: Yes (11) Tobacco use disorder Is this a current diagnosis for this admission?: Yes (12) Lower back pain Is this a current diagnosis for this admission?: Yes (13) Lumbar compression fracture Is this a current diagnosis for this admission?: Yes (14) DVT prophylaxis Is this a current diagnosis for this admission?: Yes - Additional Information Resuscitation Status: Full Code Discharge Diet: As Tolerated, Diabetic Discharge Activity: Activity As Tolerated, Slowly Increase Activity Home Medications: Ammonium Lactate 385 gm TP BID 12/31/16 Clobetasol Propionate [Clobetasol Propionate Cream] 1 applic TP BID 12/31/16 Diphenoxylate HCl/Atropine [Diphenoxylate-Atrop 2.5-0.025] 1 each PO QIDP PRN Etanercept [Enbrel] 50 mg SQ Q7D 12/31/16 Gabapentin [Neurontin 300 mg Capsule] 300 mg PO Q8 12/31/16 Hydromet Syrup 1 each PO QID 12/31/16 Ibuprofen [Motrin 800 mg Tablet] 800 mg PO BID 12/31/16 Insulin Glargine,Hum.rec.anlog [Lantus Solostar] 35 unit SQ DAILY 12/31/16 Insulin Lispro [Humalog Insulin (Lispro) 100 unit/mL] 0 unit SUBCUT .SLD SCALE 12/31/16 Lidocaine [Lidoderm 5% (700 mg) Transdermal Patch] 1 patch TP DAILY 12/31/16 Promethazine HCl 12.5 mg PO TIDP PRN 12/31/16 Hydrocodone/Acetaminophen [[place] 10-325 mg Tablet] 1 tab PO Q6HP PRN #12 tablet 01/03/17 Insulin Glargine,Hum.rec.anlog [Lantus Insulin 100 Unit/mL] 70 unit SUBCUT QHS insuln.pen 01/03/17 History of Present Illness Patient complains of: Altered mental status History of Present Illness: JAMES MORRIS is a 61 year old female who is well known to the hospitalist service that presents to [facility]'s emergency room this morning, after family member found her on the floor home with possible fall and altered mental status. She is known to our service having been recently discharged after having DKA and hyperosmolar syndrome. Patient at present time has undergone evaluation by the emergency room physician. CT of the head and neck were negative. She is not in DKA at the present time. Blood sugars are elevated at 300-400's. Patient answers questions with one or 2 word answers. Her speech is somewhat slurred. Urine drug screen was positive for benzodiazepine. She states she has been taking oxycodone 10 mg pain medicine for pain. There presently is no family members present in the room. Review of systems can not be completed due to patient's mentation. Hospital Course Hospital Course: The patient was admitted to [facility]. The patient is well known to the hospitalist service. The patient has had multiple admissions due to hyperosmolar states in DKA secondary to noncompliance which is fueled by polypharmacy, opiate dependency and Ambien. In usual format after admission the patient was hydrated started on her home basal dosage of insulin and home medications and the patient's symptoms completely normalize and labs returned to baseline. The patient did complain of acute on chronic lower back pain given that she fell at home. Plain film lumbar spine x-ray revealed 50% compression. The patient has been referred to Chris Julian with pain management for evaluation of kyphoplasty at discharge. Had a joe discussion with both the patient in the patient's daughter regarding her multiple admissions. In the past 6 months the patient has had 7 ER contacts with an additional 5 inpatient admissions. In the past the patient has been discharged with home health and physical therapy services however she has fired the agencies in the past and has never had helped within her home. The patient's daughter is quite candid about situation with her mother and states that she cannot take care of her continuously and she has to work. I explained to the patient that given her self-care deficits that have placed her in this hospital 12 times in 6 months that ideally she would have to go to a facility for her own safety. The patient adamantly refuses this stating that she will take home health and comply with it in an effort to stay out of the hospital. The patient has agreed that if she is readmitted in the next month that she will examine alternative such as assisted living. Discussed medication use with the patient and she has agreed to discontinue Ambien. The patient's pain is managed by her primary care provider Dr. Roman. The patient admits that she was out of her pain medications when she came in and needs enough pain medication to get her through until Friday when she can see Dr. Roman. I agreed to write for enough to get her through till Friday. Physical Exam Vital Signs: Temp Pulse Resp BP Pulse Ox 97.2 F 94 18 118/65 100 01/03/17 15:51 01/03/17 15:51 01/03/17 15:51 01/03/17 15:51 01/03/17 15:51 Intake & Output 01/03/17 01/04/17 01/05/17 23:59 23:59 23:59 Intake Total 1340 Output Total 1000 Balance 340 Weight 55.1 kg General appearance: PRESENT: cooperative, disheveled, thin, well-developed Head exam: PRESENT: atraumatic, normocephalic Eye exam: PRESENT: conjunctiva pink, EOMI, PERRLA. ABSENT: scleral icterus Ear exam: PRESENT: normal external ear exam Mouth exam: PRESENT: moist, tongue midline Neck exam: ABSENT: carotid bruit, JVD, lymphadenopathy, thyromegaly Respiratory exam: PRESENT: clear to auscultation megan, symmetrical, unlabored. ABSENT: rales, rhonchi, tachypnea, wheezes Cardiovascular exam: PRESENT: RRR. ABSENT: diastolic murmur, rubs, systolic murmur Pulses: PRESENT: normal dorsalis pedis pul Vascular exam: PRESENT: normal capillary refill GI/Abdominal exam: PRESENT: normal bowel sounds, soft. ABSENT: distended, guarding, mass, organolmegaly, rebound, tenderness Rectal exam: PRESENT: deferred Extremities exam: PRESENT: full ROM. ABSENT: calf tenderness, clubbing, pedal edema Neurological exam: PRESENT: alert, awake, oriented to person, oriented to place , oriented to time, oriented to situation, CN II-XII grossly intact. ABSENT: motor sensory deficit Psychiatric exam: PRESENT: appropriate affect, normal mood. ABSENT: homicidal ideation, suicidal ideation Skin exam: PRESENT: dry, intact, pallor, warm. ABSENT: cyanosis, rash Results Laboratory Results: Labs- Last Values WBC 6.6 10^3/uL (4.0-10.5) 01/03/17 07:11 RBC 3.52 10^6/uL (3.72-5.28) L 01/03/17 07:11 Hgb 9.1 g/dL (12.0-15.5) L 01/03/17 07:11 Hct 27.4 % (36.0-47.0) L 01/03/17 07:11 MCV 78 fl (80-97) L 01/03/17 07:11 MCH 26.0 pg (27.0-33.4) L 01/03/17 07:11 MCHC 33.3 g/dL (32.0-36.0) 01/03/17 07:11 RDW 16.2 % (11.5-14.0) H 01/03/17 07:11 Plt Count 128 10^3/uL (150-450) L 01/03/17 07:11 Seg Neutrophils % 75.7 % (42-78) 01/03/17 07:11 Lymphocytes % 11.7 % (13-45) L 01/03/17 07:11 Monocytes % 10.4 % (3-13) 01/03/17 07:11 Eosinophils % 1.8 % (0-6) 01/03/17 07:11 Basophils % 0.4 % (0-2) 01/03/17 07:11 Absolute Neutrophils 5.0 10^3/uL (1.7-8.2) 01/03/17 07:11 Absolute Lymphocytes 0.8 10^3/uL (0.5-4.7) 01/03/17 07:11 Absolute Monocytes 0.7 10^3/uL (0.1-1.4) 01/03/17 07:11 Absolute Eosinophils 0.1 10^3/uL (0.0-0.6) 01/03/17 07:11 Absolute Basophils 0.0 10^3/uL (0.0-0.2) 01/03/17 07:11 VBG pH 7.38 (7.30-7.42) 12/30/16 06:05 VBG pCO2 43.1 mmHg (35-63) 12/30/16 06:05 VBG HCO3 25.0 mmol/L (20-32) 12/30/16 06:05 VBG Base Excess -0.2 mmol/L 12/30/16 06:05 Sodium 139.8 mmol/L (137-145) 01/03/17 07:11 Potassium 3.4 mmol/L (3.6-5.0) L 01/03/17 07:11 Chloride 107 mmol/L (98-107) 01/03/17 07:11 Carbon Dioxide 25 mmol/L (22-30) 01/03/17 07:11 Anion Gap 8 (5-19) 01/03/17 07:11 BUN 9 mg/dL (7-20) 01/03/17 07:11 Creatinine 0.44 mg/dL (0.52-1.25) L 01/03/17 07:11 Est GFR ( Amer) > 60 (>60) 01/03/17 07:11 Est GFR (Non-Af Amer) > 60 (>60) 01/03/17 07:11 Glucose 102 mg/dL (75-110) 01/03/17 07:11 POC Glucose 226 mg/dL (70-110) H 01/03/17 11:17 Hemoglobin A1c % 9.7 % (4.7-6.0) H 12/31/16 06:41 Serum Osmolality 309 mOsm/kg (275-301) H 12/30/16 06:52 Calcium 9.1 mg/dL (8.4-10.2) 01/03/17 07:11 Magnesium 1.7 mg/dL (1.6-2.3) 01/02/17 06:04 Total Bilirubin 0.6 mg/dL (0.2-1.3) 12/30/16 06:52 Direct Bilirubin 0.3 mg/dL (0.0-0.4) 12/30/16 06:52 Indirect Bilirubin Not Reportable 12/30/16 06:52 Neonat Total Bilirubin Not Reportable 12/30/16 06:52 AST 29 U/L (14-36) 12/30/16 06:52 ALT 35 U/L (9-52) 12/30/16 06:52 Alkaline Phosphatase 129 U/L (38-126) H 12/30/16 06:52 Ammonia 8.7 umol/L (9-33) L 12/30/16 10:07 Creatine Kinase < 20 U/L (30-135) L 12/30/16 21:40 Troponin I < 0.012 ng/mL 12/30/16 21:40 Total Protein 6.1 g/dL (6.3-8.2) L 12/30/16 06:52 Albumin 3.5 g/dL (3.5-5.0) 12/30/16 06:52 Lipase 20.5 U/L (23-300) L 12/30/16 06:52 Urine Color YELLOW 12/30/16 06:52 Urine Appearance TURBID 12/30/16 06:52 Urine pH 5.0 (5.0-9.0) 12/30/16 06:52 Ur Specific [place] 1.023 12/30/16 06:52 Urine Protein 30 mg/dL (NEGATIVE) H 12/30/16 06:52 Urine Glucose (UA) >=500 mg/dL (NEGATIVE) H 12/30/16 06:52 Urine Ketones TRACE mg/dL (NEGATIVE) H 12/30/16 06:52 Urine Blood NEGATIVE (NEGATIVE) 12/30/16 06:52 Urine Nitrite NEGATIVE (NEGATIVE) 12/30/16 06:52 Urine Bilirubin NEGATIVE (NEGATIVE) 12/30/16 06:52 Urine Urobilinogen NEGATIVE mg/dL (<2.0) 12/30/16 06:52 Ur Leukocyte Esterase NEGATIVE (NEGATIVE) 12/30/16 06:52 Urine WBC (Auto) 4 /HPF 12/30/16 06:52 Urine RBC (Auto) 0 /HPF 12/30/16 06:52 Urine Bacteria (Auto) 1+ /HPF 12/30/16 06:52 Squamous Epi Cells Auto <1 /HPF 12/30/16 06:52 Amorphous Sediment Auto TRACE /HPF 12/30/16 06:52 Urine Mucus (Auto) MANY /LPF 12/30/16 06:52 Urine Ascorbic Acid NEGATIVE (NEGATIVE) 12/30/16 06:52 Urine Opiates Screen NEGATIVE 12/30/16 06:52 Urine Methadone Screen NEGATIVE 12/30/16 06:52 Ur Barbiturates Screen NEGATIVE 12/30/16 06:52 Ur Phencyclidine Scrn NEGATIVE 12/30/16 06:52 Ur Amphetamines Screen NEGATIVE 12/30/16 06:52 U Benzodiazepines Scrn UNCONFIRMED POSITIVE 12/30/16 06:52 Urine Cocaine Screen NEGATIVE 12/30/16 06:52 U Marijuana (THC) Screen NEGATIVE 12/30/16 06:52 Serum Alcohol < 10 mg/dL (NONE DETECTED) 12/30/16 06:52 Blood Type O POSITIVE 12/31/16 13:29 Antibody Screen NEGATIVE 12/31/16 13:29 Crossmatch See Detail 12/31/16 13:29 12/30/16 06:52 Urine Culture - Final Catheterized Urine NO GROWTH 2 DAYS Impressions: Cervical Spine CT 12/30/16 06:13 IMPRESSION: NO ACUTE FINDINGS IN THE CERVICAL SPINE. Head CT 12/30/16 06:25 IMPRESSION: No acute findings. Chest X-Ray 12/30/16 06:26 IMPRESSION: NO ACUTE RADIOGRAPHIC FINDING IN THE CHEST. Large chronic hiatal hernia. Chronic right humeral head deformity. Lumbar Spine X-Ray 01/02/17 00:00 IMPRESSION: 50% compression deformity of L2 with mild retropulsion. This is new from December 15. Qualifiers PATEINT BEING DISCHARGED WITH ANY OF THE FOLLOWING DIAGNOSIS?: No Plan Discharge Plan: The patient is a follow with her primary care provider within one week hospital follow-up Time Spent: Greater than 30 Minutes
== END 2017-01-03 16:28 | disposition home health service (06) | DRG 637 ==
LOC: ER 05:43 → UNDOADMIN 09:29 → EH 09:29 → 3S 13:36
PROC: 30233N1 Transfusion of Nonautologous Red Blood Cells into Peripheral Vein, Percutaneous Approach (ICD-10-PCS; principal; 2016-12-31)
DX: E11.00 Type 2 diabetes mellitus with hyperosmolarity without nonketotic hyperglycemic-hyperosmolar coma (NKHHC) (principal); G93.40 Encephalopathy, unspecified; F11.20 Opioid dependence, uncomplicated; D64.9 Anemia, unspecified; J44.9 Chronic obstructive pulmonary disease, unspecified; I10 Essential (primary) hypertension; G89.4 Chronic pain syndrome; F41.9 Anxiety disorder, unspecified; K59.03 Drug induced constipation; T40.605A Adverse effect of unspecified narcotics, initial encounter; L40.9 Psoriasis, unspecified; F17.210 Nicotine dependence, cigarettes, uncomplicated; M54.5 Low back pain; Z79.4 Long term (current) use of insulin; Z79.899 Other long term (current) drug therapy; Z91.19 Patient's noncompliance with other medical treatment and regimen
CPT/HCPCS: 36415; 36430; 70450; 71010; 72110; 72125; 80048; 80053; 80307; 81001; 82140; 82550; 82803; 82962; 83036; 83690; 83735; 83930; 84484; 85025; 85027; 86850; 86900; 86901; 86920; 86922; 87086; 93005; 93010; 99285; J1650; J1815; J1940; J2060; J2270; J3490; J7030; J7050; P9016

== ENCOUNTER 2017-02-09 17:52 | Emergency (ER) | payer MEDICAID ==
--- NOTE | 2017-02-09 18:42 | ER Document Report ---
ED Medical Screen (RME) - General Chief Complaint: Back Pain Stated Complaint: BACK PAIN Time Seen by Provider: 02/09/17 18:32 Notes: This 61-year-old female patient with over 25 years of narcotic seeking problems , more recently has poorly controlled diabetes, comes to the emergency room complaining of worsening low back pain after rolling off of her couch and landing on the floor today. She is presently on chronic pain management taking 10 mg hydrocodone daily. She had an inpatient x-ray on 01/02/2017 showing an L2 compression fracture. I have greeted and performed a rapid initial assessment of this patient. A comprehensive ED assessment and evaluation of the patient, analysis of test results and completion of the medical decision making process will be conducted by additional ED providers. TRAVEL OUTSIDE OF THE [place] IN LAST 30 DAYS: No - Related Data Allergies/Adverse Reactions: No Known Drug Allergies Allergy (Mild, Verified 02/09/17 18:21) Past Medical History - Social History Family history: None - pt adopted - Past Medical History Cardiac Medical History: Denies: Hx Congestive Heart Failure, Hx DVT, Hx Heart Attack, Hx Hypercholesterolemia, Hx Hypertension, Hx Pulmonary Embolism Pulmonary Medical History: Reports: Hx Bronchitis, Hx COPD, Hx Pneumonia Neurological Medical History: Reports: Hx Migraine Endocrine Medical History: Reports: Hx Diabetes Mellitus Type 1, Hx Diabetes Mellitus Type 2. Denies: Hx Hyperthyroidism, Hx Hypothyroidism Renal/ Medical History: Denies: Hx Peritoneal Dialysis Malignancy Medical History: Reports: Hx Ovarian Cancer, Hx Skin Cancer GI Medical History: Reports: Hx Gastroesophageal Reflux Disease, Hx Ulcer. Denies: Hx Cirrhosis, Hx Hepatitis Musculoskeltal Medical History: Reports Hx Arthritis, Reports Hx Multiple Sclerosis, Reports Hx Musculoskeletal Deformity, Reports Hx Musculoskeletal Trauma Skin Medical History: Reports Hx Psoriasis Psychiatric Medical History: Reports: Hx Anxiety, Hx Depression Traumatic Medical History: Reports: Hx Fractures - Bilateral humerus Infectious Medical History: Reports: Hx C-Diff. Denies: Hx Hepatitis Past Surgical History: Reports: Hx Genitourinary Surgery - Bladder, Hx Orthopedic Surgery - Right wrist, Hx Tubal Ligation - Immunizations Immunizations up to date: Yes Hx Diphtheria, Pertussis, Tetanus Vaccination: Yes Physical Exam - Vital signs Vitals: Temp Pulse Resp BP Pulse Ox 98.3 F 109 H 20 123/77 98 02/09/17 18:00 02/09/17 18:00 02/09/17 18:00 02/09/17 18:00 02/09/17 18:00 Course - Vital Signs Vital signs: Temp Pulse Resp BP Pulse Ox 98.3 F 109 H 20 123/77 98 02/09/17 18:00 02/09/17 18:00 02/09/17 18:00 02/09/17 18:00 02/09/17 18:00
--- NOTE | 2017-02-09 19:38 | RADIOLOGY REPORT (SQ) ---
EXAM DESCRIPTION: L SPINE WHOLE COMPLETED DATE/TIME: 02/09/2017 7:20 pm REASON FOR STUDY: Fell off couch, worsening chronis LBP COMPARISON: 01/02/2017 NUMBER OF VIEWS: Five views including obliques. TECHNIQUE: AP, lateral, oblique, and sacral radiographic images acquired of the lumbar spine. LIMITATIONS: None. FINDINGS: MINERALIZATION: Normal. SEGMENTATION: Normal. No transitional anatomy. ALIGNMENT: Normal. VERTEBRAE: The previously described compression fracture of the L2 vertebra with mild retropulsion is again identified and appears unchanged. No other vertebral compressions are identified. DISCS: Preserved height. No significant osteophytes or end plate irregularity. POSTERIOR ELEMENTS: Pedicles and facets are intact. No pars defect or posterior arch defects. HARDWARE: None in the spine. PARASPINAL SOFT TISSUES: Normal. PELVIS: Intact as visualized. No fractures or worrisome bone lesions. SI joints intact. OTHER: No other significant finding. IMPRESSION: The previously described compression fracture of the L2 vertebra with mi retropulsion is again identified and appears unchanged. No other vertebral compressions are identified. Other find ings as noted above TECHNICAL DOCUMENTATION: JOB ID: [id number]- All Rights Reserved
[2017-02-09 19:45] LABS: ABSOLUTE EOSINOPHILS # (AUTO) 0.1 10^3/uL (0.0-0.6); ABSOLUTE LYMPHOCYTES (AUTO) 2.2 10^3/uL (0.5-4.7); ABSOLUTE NEUT (AUTO) 5.1 10^3/uL (1.7-8.2); BASOPHILS % (AUTO) 0.4 % (0-2); EOSINOPHILS % (AUTO) 0.9 % (0-6); HEMATOCRIT 40.5 % (36.0-47.0); HEMOGLOBIN 12.8 g/dL (12.0-15.5); HGB HCT DIFFERENCE -2.1; LYMPHOCYTES % (AUTO) 25.9 % (13-45); MEAN CORPUSCULAR HGB CONC 31.5 g/dL (32.0-36.0); MEAN CORPUSCULAR VOLUME 76 fl (80-97); MONOCYTES % (AUTO) 12.4 % (3-13); RED BLOOD COUNT 5.33 10^6/uL (3.72-5.28); RED CELL DISTRIBUTION WIDTH 20.6 % (11.5-14.0); SEGMENTED NEUTROPHILS % (AUTO) 60.4 % (42-78); WHITE BLOOD COUNT 8.5 10^3/uL (4.0-10.5)
[2017-02-09 20:08] LABS: ALANINE AMINOTRANSFERASE 31 U/L (9-52); ALBUMIN 4.1 g/dL (3.5-5.0); ALKALINE PHOSPHATASE 145 U/L (38-126); ANION GAP 10 (5-19); ASPARTATE AMINO TRANSFERASE 21 U/L (14-36); BILIRUBIN,DIRECT 0.4 mg/dL (0.0-0.4); BILIRUBIN,TOTAL 0.8 mg/dL (0.2-1.3); BLOOD UREA NITROGEN 12 mg/dL (7-20); CALCIUM 9.9 mg/dL (8.4-10.2); CARBON DIOXIDE 25 mmol/L (22-30); CHLORIDE 103 mmol/L (98-107); CREATININE RESULT 0.59 mg/dL (0.52-1.25); GLUCOSE 360 mg/dL (75-110); MAGNESIUM 1.9 mg/dL (1.6-2.3); POTASSIUM 3.6 mmol/L (3.6-5.0); SODIUM 138.3 mmol/L (137-145); TOTAL PROTEIN 7.2 g/dL (6.3-8.2)
[2017-02-09] MEDS ORDERED: OXYCODONE-ACETAMINOPHEN 5-325 MG TABLET PO ONE (20:26)
--- NOTE | 2017-02-09 20:27 | ER Document Report ---
ED General - General Chief Complaint: Back Pain Stated Complaint: BACK PAIN Time Seen by Provider: 02/09/17 18:32 Mode of Arrival: Ambulatory Information source: Patient Notes: 61-year-old female chronic pain patient is with complaints of back pain. Patient notes she had a compression fracture a few weeks ago, was sleeping on the couch and fell off striking her back. Patient states her back is hurting again. Patient denies any loss of bowel or bladder function, denies any cauda equina concerns. TRAVEL OUTSIDE OF THE [place] IN LAST 30 DAYS: No - HPI Onset: Just prior to arrival Onset/Duration: Sudden Quality of pain: Achy Severity: Mild Pain Level: 1 Associated symptoms: Body/muscle aches Exacerbated by: Movement Relieved by: Denies Similar symptoms previously: Yes Recently seen / treated by doctor: Yes - Related Data Allergies/Adverse Reactions: No Known Drug Allergies Allergy (Mild, Verified 02/09/17 18:21) Past Medical History - Social History Smoking Status: Current Every Day Smoker Cigarette use (# per day): Yes Chew tobacco use (# tins/day): No Smoking Education Provided: Yes Family History: Reviewed & Not Pertinent - Past Medical History Cardiac Medical History: Denies: Hx Congestive Heart Failure, Hx DVT, Hx Heart Attack, Hx Hypercholesterolemia, Hx Hypertension, Hx Pulmonary Embolism Pulmonary Medical History: Reports: Hx Bronchitis, Hx COPD, Hx Pneumonia Neurological Medical History: Reports: Hx Migraine Endocrine Medical History: Reports: Hx Diabetes Mellitus Type 1, Hx Diabetes Mellitus Type 2. Denies: Hx Hyperthyroidism, Hx Hypothyroidism Renal/ Medical History: Denies: Hx Peritoneal Dialysis Malignancy Medical History: Reports: Hx Ovarian Cancer, Hx Skin Cancer GI Medical History: Reports: Hx Gastroesophageal Reflux Disease, Hx Ulcer. Denies: Hx Cirrhosis, Hx Hepatitis Musculoskeltal Medical History: Reports Hx Arthritis, Reports Hx Multiple Sclerosis, Reports Hx Musculoskeletal Deformity, Reports Hx Musculoskeletal Trauma Skin Medical History: Reports Hx Psoriasis Psychiatric Medical History: Reports: Hx Anxiety, Hx Depression Traumatic Medical History: Reports: Hx Fractures - Bilateral humerus Infectious Medical History: Reports: Hx C-Diff. Denies: Hx Hepatitis Past Surgical History: Reports: Hx Genitourinary Surgery - Bladder, Hx Orthopedic Surgery - Right wrist, Hx Tubal Ligation - Immunizations Immunizations up to date: Yes Hx Diphtheria, Pertussis, Tetanus Vaccination: Yes Hx Pneumococcal Vaccination: 06/15/13 Review of Systems - Review of Systems Notes: PHYSICAL EXAMINATION: GENERAL: Well-appearing, well-nourished and in no acute distress. HEAD: Atraumatic, normocephalic. EYES: Pupils equal round and reactive to light, extraocular movements intact, conjunctiva are normal. ENT: Nares patent, oropharynx clear without exudates. Moist mucous membranes. NECK: Normal range of motion, supple without lymphadenopathy LUNGS: Breath sounds clear to auscultation bilaterally and equal. No wheezes rales or rhonchi. HEART: Regular rate and rhythm without murmurs ABDOMEN: Soft, nontender, nondistended abdomen. No guarding, no rebound. No masses appreciated. Female : deferred Musculoskeletal: Normal range of motion, no pitting or edema. No cyanosis. There is some palpation of the lumbar spine without any step-off or deformities NEUROLOGICAL: Cranial nerves grossly intact. Normal speech, normal gait. Normal sensory, motor exams PSYCH: Normal mood, normal affect. SKIN: Warm, Dry, normal turgor, no rashes or lesions noted. Physical Exam - Vital signs Vitals: Temp Pulse Resp BP Pulse Ox 98.3 F 109 H 20 123/77 98 02/09/17 18:00 02/09/17 18:00 02/09/17 18:00 02/09/17 18:00 02/09/17 18:00 Course - Re-evaluation Re-evalutation: 02/09/17 23:39 X-rays consistent with a previous fracture that was noted on previous imaging. No new injuries noted. Unfortunately given the patient's pain I will discharge her home with pain control even though she does have a history of chronic opioid and benzo dependence After performing a Medical Screening Examination, I estimate there is LOW risk for EXPANDING OR RUPTURED ABDOMINAL AORTIC ANEURYSM, CAUDA EQUINA SYNDROME, EPIDURAL MASS LESION, or HERNIATED DISK CAUSING SEVERE SPINAL STENOSIS, thus I consider the discharge disposition reasonable. I have reevaluated this patient multiple times and no significant life threatening changes are noted. The patient and I have discussed the diagnosis and risks, and we agree with discharging home and close follow-up. We also discussed returning to the Emergency Department immediately if new or worsening symptoms occur with the understanding that symptoms and presentations can change. We have discussed the symptoms which are most concerning (e.g., saddle anesthesia, urinary or bowel incontinence or retention, changing or worsening pain) that necessitate immediate return. - Vital Signs Vital signs: Temp Pulse Resp BP Pulse Ox 98.1 F 98 18 112/76 18 L 02/09/17 21:35 02/09/17 21:35 02/09/17 21:35 02/09/17 21:35 02/09/17 21:35 - Laboratory Result Diagrams: 02/09/17 19:05 02/09/17 19:05 Laboratory results interpreted by me: 02/09/17 02/09/17 19:05 19:05 RBC 5.33 H MCV 76 L MCH 24.0 L MCHC 31.5 L RDW 20.6 H Glucose 360 H Alkaline Phosphatase 145 H - Diagnostic Test Radiology reviewed: Image reviewed, Reports reviewed - Compression fracture noted Discharge - Discharge Clinical Impression: Opiate dependence, continuous, Hyperglycemia Lower back pain Qualifiers: Chronicity: chronic Back pain laterality: midline Sciatica presence: without sciatica Qualified Code(s): M54.5 - Low back pain Condition: Stable Disposition: HOME, SELF-CARE Prescriptions: Oxycodone HCl/Acetaminophen [Percocet 5-325 mg Tablet] 1 - 2 tab PO Q4H PRN #15 tablet PRN Reason: Referrals: [facility] MD [Primary Care Provider] - Follow up in 3-5 days
[2017-02-09 21:36] VITALS: BP 112/76
== END 2017-02-09 21:35 | disposition home or self-care (01) ==
LOC: ER 17:52
DX: R73.9 Hyperglycemia, unspecified (principal); M54.5 Low back pain; F11.20 Opioid dependence, uncomplicated; M54.9 Dorsalgia, unspecified; W08.XXXA Fall from other furniture, initial encounter; F17.210 Nicotine dependence, cigarettes, uncomplicated
CPT/HCPCS: 36415; 72110; 80053; 83735; 85025; 99283

== ENCOUNTER → 2017-03-04 | Outpatient (CLI) | payer MEDICAID ==
--- NOTE | 2017-03-04 13:56 | RADIOLOGY REPORT (SQ) ---
EXAM DESCRIPTION: CHEST PA/LATERAL COMPLETED DATE/TIME: 03/04/2017 1:46 pm REASON FOR STUDY: COUGH COMPARISON: CT abdomen pelvis 01/09/2018 Chest films 09/01/2016, 12/14/2016, 12/30/2016 Lumbar spine films 01/02/2017, 02/09/2017 EXAM PARAMETERS: NUMBER OF VIEWS: two views TECHNIQUE: Digital Frontal and Lateral radiographic views of the chest acquired. RADIATION DOSE: NA LIMITATIONS: none FINDINGS: LUNGS AND PLEURA: No opacities, masses or pneumothorax. No pleural effusion. MEDIASTINUM AND HILAR STRUCTURES: Large retrocardiac hiatal hernia containing an air-fluid level. HEART AND VASCULAR STRUCTURES: Heart normal size. No evidence for failure. BONES: Stable L2 vertebra plana compression deformity HARDWARE: None in the chest. OTHER: No other significant finding. IMPRESSION: No focal infiltrates. Large retrocardiac hiatal hernia containing an air-fluid level. This puts the patient at risk for ga stroesophageal reflux and aspiration. Stable L2 vertebra plana compression deformity TECHNICAL DOCUMENTATION: JOB ID: [id number]- All Rights Reserved
== END ==
LOC: OD 13:30
PROVIDERS: ATTEND Family Medicine
DX: R05 Cough (principal)
CPT/HCPCS: 71020

== ENCOUNTER 2017-03-24 11:22 | Emergency (ER) | payer MEDICAID ==
[2017-03-24] MEDS ORDERED: ONDANSETRON HCL INJ/PF 4 MG/2 ML SDV IV ONE ×2 (11:36→13:10)
[2017-03-24] MEDS ORDERED: NORMAL SALINE 1000 ML 1,000 ML IV ONE (11:37)
[2017-03-24] MEDS ORDERED: KETOROLAC TROMETHAMINE INJ/PF 30 MG/1 ML SDV IV ONE (11:42)
--- NOTE | 2017-03-24 11:42 | ER Document Report ---
ED Medical Screen (RME) - General Chief Complaint: Vomiting Stated Complaint: VOMITING,DIARRHEA Time Seen by Provider: 03/24/17 11:36 Mode of Arrival: Ambulatory Notes: 61-year-old diabetic with chronic back pain presents with complaints of back pain nausea vomiting. Patient has she been dry heaving for a few days with diarrhea. She denies any fevers or chills states her blood sugars normally 300s I have greeted and performed a rapid initial assessment of this patient. A comprehensive ED assessment and evaluation of the patient, analysis of test results and completion of the medical decision making process will be conducted by additional ED providers. PHYSICAL EXAMINATION: GENERAL: frail female, quiet until door opened HEAD: Atraumatic, normocephalic. EYES: Pupils equal round extraocular movements intact, conjunctiva are normal. ENT: Nares patent NECK: Normal range of motion LUNGS: No respiratory distress Musculoskeletal: Normal range of motion NEUROLOGICAL: Normal speech, normal gait. PSYCH: Normal mood, normal affect. SKIN: Warm, Dry, normal turgor, no rashes or lesions noted. TRAVEL OUTSIDE OF THE [place] IN LAST 30 DAYS: No - Related Data Allergies/Adverse Reactions: No Known Drug Allergies Allergy (Mild, Verified 03/24/17 11:31) Past Medical History - Social History Family history: None - pt adopted - Past Medical History Cardiac Medical History: Denies: Hx Congestive Heart Failure, Hx DVT, Hx Heart Attack, Hx Hypercholesterolemia, Hx Hypertension, Hx Pulmonary Embolism Pulmonary Medical History: Reports: Hx Bronchitis, Hx COPD, Hx Pneumonia Neurological Medical History: Reports: Hx Migraine Endocrine Medical History: Reports: Hx Diabetes Mellitus Type 1, Hx Diabetes Mellitus Type 2. Denies: Hx Hyperthyroidism, Hx Hypothyroidism Renal/ Medical History: Denies: Hx Peritoneal Dialysis Malignancy Medical History: Reports: Hx Ovarian Cancer, Hx Skin Cancer GI Medical History: Reports: Hx Gastroesophageal Reflux Disease, Hx Ulcer. Denies: Hx Cirrhosis, Hx Hepatitis Musculoskeltal Medical History: Reports Hx Arthritis, Reports Hx Multiple Sclerosis, Reports Hx Musculoskeletal Deformity, Reports Hx Musculoskeletal Trauma Skin Medical History: Reports Hx Psoriasis Psychiatric Medical History: Reports: Hx Anxiety, Hx Depression Traumatic Medical History: Reports: Hx Fractures - Bilateral humerus Infectious Medical History: Reports: Hx C-Diff. Denies: Hx Hepatitis Past Surgical History: Reports: Hx Genitourinary Surgery - Bladder, Hx Orthopedic Surgery - Right wrist, Hx Tubal Ligation - Immunizations Immunizations up to date: Yes Hx Diphtheria, Pertussis, Tetanus Vaccination: Yes Physical Exam - Vital signs Vitals: Temp Pulse Resp BP Pulse Ox 98.6 F 115 H 22 H 125/87 H 97 03/24/17 11:27 03/24/17 11:27 03/24/17 11:27 03/24/17 11:27 03/24/17 11:27 Course - Vital Signs Vital signs: Temp Pulse Resp BP Pulse Ox 98.6 F 115 H 22 H 125/87 H 97 03/24/17 11:27 03/24/17 11:27 03/24/17 11:27 03/24/17 11:27 03/24/17 11:27
[2017-03-24 12:06] LABS: ABSOLUTE BASOPHILS # (AUTO) 0.1 10^3/uL (0.0-0.2); ABSOLUTE LYMPHOCYTES (AUTO) 1.1 10^3/uL (0.5-4.7); ABSOLUTE MONOCYTES (AUTO) 0.6 10^3/uL (0.1-1.4); ABSOLUTE NEUT (AUTO) 8.5 10^3/uL (1.7-8.2); BASOPHILS % (AUTO) 0.7 % (0-2); EOSINOPHILS % (AUTO) 0.1 % (0-6); HEMATOCRIT 40.5 % (36.0-47.0); HEMOGLOBIN 12.6 g/dL (12.0-15.5); HGB HCT DIFFERENCE -2.7; LYMPHOCYTES % (AUTO) 10.8 % (13-45); MEAN CORPUSCULAR HEMOGLOBIN 23.7 pg (27.0-33.4); MEAN CORPUSCULAR HGB CONC 31.1 g/dL (32.0-36.0); MEAN CORPUSCULAR VOLUME 76 fl (80-97); RED BLOOD COUNT 5.33 10^6/uL (3.72-5.28); RED CELL DISTRIBUTION WIDTH 19.8 % (11.5-14.0); SEGMENTED NEUTROPHILS % (AUTO) 82.4 % (42-78); WHITE BLOOD COUNT 10.3 10^3/uL (4.0-10.5)
[2017-03-24 12:28] LABS: ALANINE AMINOTRANSFERASE 42 U/L (9-52); ALBUMIN 4.5 g/dL (3.5-5.0); ALKALINE PHOSPHATASE 215 U/L (38-126); ANION GAP 18 (5-19); ASPARTATE AMINO TRANSFERASE 31 U/L (14-36); BILIRUBIN,DIRECT 0.3 mg/dL (0.0-0.4); BILIRUBIN,TOTAL 0.9 mg/dL (0.2-1.3); BLOOD UREA NITROGEN 8 mg/dL (7-20); CALCIUM 9.8 mg/dL (8.4-10.2); CARBON DIOXIDE 22 mmol/L (22-30); CHLORIDE 98 mmol/L (98-107); CREATININE RESULT 0.45 mg/dL (0.52-1.25); GLUCOSE 313 mg/dL (75-110); POTASSIUM 3.4 mmol/L (3.6-5.0); SODIUM 137.6 mmol/L (137-145); TOTAL PROTEIN 7.7 g/dL (6.3-8.2)
[2017-03-24 12:44] LABS: VENOUS BLOOD BASE EXCESS 1.6 mmol/L; VENOUS BLOOD HCO3 23.8 mmol/L (20-32); VENOUS BLOOD PCO2 30.2 mmHg (35-63); VENOUS BLOOD PH 7.52 (7.30-7.42)
--- NOTE | 2017-03-24 13:19 | ER Document Report ---
ED General - General Chief Complaint: Vomiting Stated Complaint: VOMITING,DIARRHEA Time Seen by Provider: 03/24/17 11:36 Mode of Arrival: Ambulatory Information source: Patient Notes: 61-year-old diabetic female history of chronic back pain presents with complaints of nausea vomiting episodes since yesterday. Patient states she has not been able to keep down any of her pain medication because of her vomiting, states she has been on her pain medication. Denies any fevers or chills, patient has not been in DKA and she states that long time and does not feel like she is in DKA TRAVEL OUTSIDE OF THE [place] IN LAST 30 DAYS: No - HPI Onset: Yesterday Onset/Duration: Sudden Quality of pain: Achy Severity: Mild Pain Level: 1 Associated symptoms: Nausea, Vomiting Exacerbated by: Denies Relieved by: Denies Similar symptoms previously: Yes Recently seen / treated by doctor: Yes - Related Data Allergies/Adverse Reactions: No Known Drug Allergies Allergy (Mild, Verified 03/24/17 11:31) Past Medical History - Social History Smoking Status: Current Every Day Smoker Cigarette use (# per day): Yes Chew tobacco use (# tins/day): No Smoking Education Provided: No Family History: Reviewed & Not Pertinent Patient has suicidal ideation: No Patient has homicidal ideation: No - Past Medical History Cardiac Medical History: Denies: Hx Congestive Heart Failure, Hx DVT, Hx Heart Attack, Hx Hypercholesterolemia, Hx Hypertension, Hx Pulmonary Embolism Pulmonary Medical History: Reports: Hx Bronchitis, Hx COPD, Hx Pneumonia Neurological Medical History: Reports: Hx Migraine Endocrine Medical History: Reports: Hx Diabetes Mellitus Type 1, Hx Diabetes Mellitus Type 2. Denies: Hx Hyperthyroidism, Hx Hypothyroidism Renal/ Medical History: Denies: Hx Peritoneal Dialysis Malignancy Medical History: Reports: Hx Ovarian Cancer, Hx Skin Cancer GI Medical History: Reports: Hx Gastroesophageal Reflux Disease, Hx Ulcer. Denies: Hx Cirrhosis, Hx Hepatitis Musculoskeltal Medical History: Reports Hx Arthritis, Reports Hx Multiple Sclerosis, Reports Hx Musculoskeletal Deformity, Reports Hx Musculoskeletal Trauma Skin Medical History: Reports Hx Psoriasis Psychiatric Medical History: Reports: Hx Anxiety, Hx Depression Traumatic Medical History: Reports: Hx Fractures - Bilateral humerus Infectious Medical History: Reports: Hx C-Diff. Denies: Hx Hepatitis Past Surgical History: Reports: Hx Genitourinary Surgery - Bladder, Hx Orthopedic Surgery - Right wrist, Hx Tubal Ligation - Immunizations Immunizations up to date: Yes Hx Diphtheria, Pertussis, Tetanus Vaccination: Yes Hx Pneumococcal Vaccination: 06/15/13 Review of Systems - Review of Systems Notes: REVIEW OF SYSTEMS: CONSTITUTIONAL : Denies fever, chills, or sweats. Denies recent illness. EENT: Denies eye, ear, throat, or mouth pain or symptoms. Denies nasal or sinus congestion or discharge. Denies throat, tongue, or mouth swelling or difficulty swallowing. CARDIOVASCULAR: Denies chest pain. Denies palpitations or racing or irregular heart beat. Denies ankle edema. RESPIRATORY: Denies cough, cold, or chest congestion. Denies shortness of breath, difficulty breathing, or wheezing. GASTROINTESTINAL: Admits to nausea vomiting diarrhea GENITOURINARY: Denies difficulty urinating, painful urination, burning, frequency, blood in urine, or discharge. FEMALE GENITOURINARY: Denies vaginal bleeding, heavy or abnormal periods, irregular periods. Denies vaginal discharge or odor. MUSCULOSKELETAL: Has chronic back pain SKIN: Denies rash, lesions or sores. HEMATOLOGIC : Denies easy bruising or bleeding. LYMPHATIC: Denies swollen, enlarged glands. NEUROLOGICAL: Denies confusion or altered mental status. Denies passing out or loss of consciousness. Denies dizziness or lightheadedness. Denies headache. Denies weakness or paralysis or loss of use of either side. Denies problems with gait or speech. Denies sensory loss, numbness, or tingling. Denies seizures. PSYCHIATRIC: Denies anxiety or stress. Denies depression, suicidal ideation, or homicidal ideation. ALL OTHER SYSTEMS REVIEWED AND NEGATIVE. PHYSICAL EXAMINATION: GENERAL: Frail thin female no acute distress HEAD: Atraumatic, normocephalic. EYES: Pupils equal round and reactive to light, extraocular movements intact, conjunctiva are normal. ENT: Nares patent, oropharynx clear without exudates. Moist mucous membranes. NECK: Normal range of motion, supple without lymphadenopathy LUNGS: Breath sounds clear to auscultation bilaterally and equal. No wheezes rales or rhonchi. HEART: Regular rate and rhythm without murmurs ABDOMEN: Soft, nontender, nondistended abdomen. No guarding, no rebound. No masses appreciated. Female : deferred Musculoskeletal: Normal range of motion, no pitting or edema. No cyanosis. NEUROLOGICAL: Cranial nerves grossly intact. Normal speech, normal gait. Normal sensory, motor exams PSYCH: Normal mood, normal affect. SKIN: Warm, Dry, normal turgor, no rashes or lesions noted. Dictation was performed using [employer] voice recognition software Physical Exam - Vital signs Vitals: Temp Pulse Resp BP Pulse Ox 98.6 F 115 H 22 H 125/87 H 97 03/24/17 11:27 03/24/17 11:27 03/24/17 11:27 03/24/17 11:27 03/24/17 11:27 Course - Re-evaluation Re-evalutation: 03/24/17 13:17 Patient appears to be dry heaving intermittently when I check on her however throughout the 2 hours that she is sitting right next to me she is having full conversations with other patients will be no episodes of emesis or distress. Patient have to given [place] states she feels great wishes to be discharged, I will discharge her at her request After performing a Medical Screening Examination, I estimate there is LOW risk for ACUTE APPENDICITIS, BOWEL OBSTRUCTION, ACUTE CHOLECYSTITIS, PERFORATED DIVERTICULITIS, INCARCERATED HERNIA, PANCREATITIS, PELVIC INFLAMMATORY DISEASE, PERFORATED ULCER, ECTOPIC , or TUBO-OVARIAN ABSCESS, thus I consider the discharge disposition reasonable. Also, there is no evidence or peritonitis , sepsis, or toxicity. I have reevaluated this patient multiple times and no significant life threatening changes are noted. The patient and I have discussed the diagnosis and risks, and we agree with discharging home with close follow-up with the understanding that symptoms and presentations can change. We also discussed returning to the Emergency Department immediately if new or worsening symptoms occur. We have discussed the symptoms which are most concerning (e.g., bloody stool, fever, changing or worsening pain, vomiting) that necessitate immediate return. - Vital Signs Vital signs: Temp Pulse Resp BP Pulse Ox 98.6 F 115 H 22 H 125/87 H 97 03/24/17 11:27 03/24/17 11:27 03/24/17 11:27 03/24/17 11:27 03/24/17 11:27 - Laboratory Result Diagrams: 03/24/17 11:53 03/24/17 11:53 Laboratory results interpreted by me: 03/24/17 03/24/17 03/24/17 11:53 11:53 12:16 RBC 5.33 H MCV 76 L MCH 23.7 L MCHC 31.1 L RDW 19.8 H Seg Neutrophils % 82.4 H Lymphocytes % 10.8 L Absolute Neutrophils 8.5 H VBG pH 7.52 H VBG pCO2 30.2 L Potassium 3.4 L Creatinine 0.45 L Glucose 313 H Alkaline Phosphatase 215 H Discharge - Discharge Clinical Impression: Nausea vomiting and diarrhea Condition: Stable Disposition: HOME, SELF-CARE Instructions: Antinausea Medication ([facility]) Additional Instructions: Follow up with your physician tomorrow for further care or return to the ED IMMEDIATELY if symptoms worsen or new concerns occur. If you cannot afford to follow up with your primary care physician a list of low cost clinics have been provided at the end of your discharge papers as well. Prescriptions: Promethazine HCl [Phenergan 25 mg Tablet] 1 - 2 tab PO Q6H PRN #10 tablet PRN Reason:
[2017-03-24 13:32] LABS: AMORPHOUS SEDIMENT,URINE 1+ /HPF; APPEARANCE,URINE CLOUDY; BILIRUBIN,URINE NEGATIVE (NEGATIVE); GLUCOSE, URINE >=500 mg/dL (NEGATIVE); KETONES,URINE TRACE mg/dL (NEGATIVE); LEUKOCYTE ESTERASE,URINE TRACE (NEGATIVE); NITRITE,URINE NEGATIVE (NEGATIVE); PROTEIN,URINE 30 mg/dL (NEGATIVE); URINE SPECIFIC GRAVITY 1.009; UROBILINOGEN,URINE NEGATIVE mg/dL (<2.0)
[2017-03-24 15:35] VITALS: BP 132/91
== END 2017-03-24 13:30 | disposition home or self-care (01) ==
LOC: ER 11:22
DX: R11.2 Nausea with vomiting, unspecified (principal); R19.7 Diarrhea, unspecified; M54.9 Dorsalgia, unspecified; G89.29 Other chronic pain; F17.210 Nicotine dependence, cigarettes, uncomplicated
CPT/HCPCS: 96376; 99284; 96374; 96375; 36415; 82962; 85025; 80053; 81001; 82803; J1885; J2405; J7030

== ENCOUNTER 2017-04-06 12:23 | Emergency (ER) | payer MEDICAID ==
[2017-04-06] MEDS ORDERED: NORMAL SALINE 1000 ML 1,000 ML IV ONE (13:19)
--- NOTE | 2017-04-06 13:25 | ER Document Report ---
ED General - General Information source: Patient TRAVEL OUTSIDE OF THE [place] IN LAST 30 DAYS: No - HPI Associated symptoms: Other - see above <DARIAN ALFONSO - Last Filed: 04/06/17 13:28> <MÓNICA CEVALLOS - Last Filed: 04/06/17 15:20> - General Chief Complaint: High Blood Sugar Stated Complaint: DIZZINESS Notes: Patient is a 61 year old female who presents to the ED via EMS with complaints of dizziness and feeling lightheaded. Patient states she walked to her PCP office today thinking it was Friday to get a refill of her [place]. Patient complaining of chronic back pain but was able to ambulate to her PCP outside to get the pain medication. Patient requesting medication to treat her pain. Patient gets 60 10mg [place] every 12-13 days for chronic pain. EMS reports tachycardia and a blood sugar of 432. (DARIAN ALFONSO) This 61-year-old female patient brought to emergency room by EMS complaining of feeling dizzy and lightheaded. Her primary complaint though is chronic back pain related to a L2 compression fracture occurring on 12/30/2016. She normally takes [place] 10 mg 4 times daily on a chronic basis, long before she fell and suffered the L2 fracture. That fall was probably drug related. She has a long history of hydrocodone seeking, dating back into the 1980s. She also has diabetes and is seen here and admitted frequently for noncompliance. (MÓNICA CEVALLOS) - Related Data Allergies/Adverse Reactions: No Known Drug Allergies Allergy (Mild, Verified 04/06/17 12:36) Past Medical History - General Information source: Patient - Social History Smoking Status: Unknown if Ever Smoked Chew tobacco use (# tins/day): No Frequency of alcohol use: None Family History: Reviewed & Not Pertinent - Past Medical History Cardiac Medical History: Denies: Hx Congestive Heart Failure, Hx DVT, Hx Heart Attack, Hx Hypercholesterolemia, Hx Hypertension, Hx Pulmonary Embolism Pulmonary Medical History: Reports: Hx Bronchitis, Hx COPD, Hx Pneumonia Neurological Medical History: Reports: Hx Migraine Endocrine Medical History: Reports: Hx Diabetes Mellitus Type 1, Hx Diabetes Mellitus Type 2. Denies: Hx Hyperthyroidism, Hx Hypothyroidism Renal/ Medical History: Denies: Hx Peritoneal Dialysis Malignancy Medical History: Reports: Hx Ovarian Cancer, Hx Skin Cancer GI Medical History: Reports: Hx Gastroesophageal Reflux Disease, Hx Ulcer. Denies: Hx Cirrhosis, Hx Hepatitis Musculoskeltal Medical History: Reports Hx Arthritis, Reports Hx Multiple Sclerosis, Reports Hx Musculoskeletal Deformity, Reports Hx Musculoskeletal Trauma Skin Medical History: Reports Hx Psoriasis Psychiatric Medical History: Reports: Hx Anxiety, Hx Depression Traumatic Medical History: Reports: Hx Fractures - Bilateral humerus Infectious Medical History: Reports: Hx C-Diff. Denies: Hx Hepatitis Past Surgical History: Reports: Hx Genitourinary Surgery - Bladder, Hx Orthopedic Surgery - Right wrist, Hx Tubal Ligation - Immunizations Immunizations up to date: Yes Hx Diphtheria, Pertussis, Tetanus Vaccination: Yes Hx Pneumococcal Vaccination: 06/15/13 <DARIAN ALFONSO - Last Filed: 04/06/17 13:28> - Social History Smoking Status: Former Smoker Cigarette use (# per day): No Smoking Education Provided: No Frequency of alcohol use: None Drug Abuse: Prescription drugs Occupation: Unemployed - Past Medical History Cardiac Medical History: Reports: Hx Hypertension EENT Medical History: Reports: None Neurological Medical History: Reports: Hx Migraine Endocrine Medical History: Reports: Hx Diabetes Mellitus Type 1. Denies: Hx Diabetes Mellitus Type 2 Renal/ Medical History: Reports: None GI Medical History: Reports: Hx Gastroesophageal Reflux Disease, Hx Hiatal Hernia Musculoskeltal Medical History: Reports Hx Multiple Sclerosis Psychiatric Medical History: Reports: Hx Anxiety, Hx Depression <MÓNICA CEVALLOS - Last Filed: 04/06/17 15:20> Review of Systems - Review of Systems Constitutional: No symptoms reported EENT: No symptoms reported Cardiovascular: See HPI, Dizziness, Lightheaded Respiratory: No symptoms reported Gastrointestinal: No symptoms reported Genitourinary: No symptoms reported Female Genitourinary: No symptoms reported Musculoskeletal: See HPI, Back pain - chronic Skin: No symptoms reported Hematologic/Lymphatic: No symptoms reported Neurological/Psychological: No symptoms reported <DARIAN ALFONSO - Last Filed: 04/06/17 13:28> Physical Exam - General General appearance: Alert, Other - confused, talking non stop about needing narcotic pain medication. In distress: None - HEENT Head: Normocephalic, Atraumatic Eyes: Normal Extraocular movements intact: Yes Pupils: PERRL Mucous membranes: Dry - Respiratory Respiratory status: No respiratory distress Breath sounds: Normal - Cardiovascular Rhythm: Tachycardia Heart sounds: Normal auscultation Murmur: No - Abdominal Inspection: Normal Distension: No distension Tenderness: Nontender - Back Back: Other - Kyphotic - Neurological Neuro grossly intact: Yes - Psychological Associated symptoms: Confused - thought it was Friday, walked to PCP office to get more pain medication, Other - focused on getting pain medication, non stop talking about wanting narcotics - Skin Skin Temperature: Warm Skin Moisture: Dry Skin Color: Pale <DARIAN ALFONSO - Last Filed: 04/06/17 13:28> <MÓNICA CEVALLOS - Last Filed: 04/06/17 15:20> - Vital signs Vitals: Temp Pulse Resp BP Pulse Ox 98.5 F 126 H 16 93/65 L 95 04/06/17 12:28 04/06/17 12:28 04/06/17 12:28 04/06/17 12:28 04/06/17 12:28 - Cardiovascular Notes: Patient is a little hypotensive for her baseline. (DARIAN ALFONSO) Course - Laboratory Result Diagrams: 04/06/17 13:05 04/06/17 13:05 <DARIAN ALFONSO - Last Filed: 04/06/17 13:28> - Laboratory Result Diagrams: 04/06/17 13:05 04/06/17 13:05 <MÓNICA CEVALLOS - Last Filed: 04/06/17 15:20> - Re-evaluation Re-evalutation: 04/06/17 15:18 The patient told the nurse that the Ultram she received does not do anything for her. The patient's initial hypotension has resolved and pressures have been in the 115-125 range with a heart rate around 100. The patient states her doctors talked her about kyphoplasty, however no arrangements have been made for evaluation by an interventionalist. I informed the patient that she is a chronic pain management patient, that we do not provide narcotics to people who are on chronic pain management and she would need to see her primary care doctor for any further pain medicine. (MÓNICA CEVALLOS) - Vital Signs Vital signs: Temp Pulse Resp BP Pulse Ox 98.5 F 126 H 16 93/65 L 95 04/06/17 12:28 04/06/17 12:28 04/06/17 12:28 04/06/17 12:28 04/06/17 12:28 - Laboratory Laboratory results interpreted by me: 04/06/17 04/06/17 04/06/17 12:49 13:05 13:05 Hgb 10.8 L Hct 34.0 L MCV 75 L MCH 23.6 L MCHC 31.7 L RDW 19.3 H Lymphocytes % 11.0 L Potassium 3.2 L Carbon Dioxide 21 L Glucose 387 H Alkaline Phosphatase 147 H Urine Protein 100 H Urine Glucose (UA) >=500 H Urine Blood MODERATE H Ur Leukocyte Esterase LARGE H Discharge <DARIAN ALFONSO - Last Filed: 04/06/17 13:28> <MÓNICA CEVALLOS - Last Filed: 04/06/17 15:20> - Discharge Clinical Impression: Hyperglycemia, Has run out of medications Chronic low back pain Qualifiers: Back pain laterality: midline Sciatica presence: without sciatica Qualified Code(s): M54.5 - Low back pain Traumatic compression fracture of L2 lumbar vertebra Qualifiers: Encounter type: initial encounter Fracture type: closed Qualified Code(s): S32.020A - Wedge compression fracture of second lumbar vertebra, initial encounter for closed fracture Hypotension Qualifiers: Hypotension type: unspecified hypotension type Qualified Code(s): I95.9 - Hypotension, unspecified Urinary tract infection Qualifiers: Urinary tract infection type: site unspecified Hematuria presence: without hematuria Qualified Code(s): N39.0 - Urinary tract infection, site not specified Condition: Stable Disposition: HOME, SELF-CARE Additional Instructions: Urinary Tract Infection: Your evaluation indicates that you have a urinary tract infection. This is due to germs growing in the bladder. This is a common problem. This infection usually responds quickly to antibiotics. Your antibiotic should be taken exactly as prescribed. Drink plenty of fluids -- three to four quarts a day. Occasionally, a bladder anesthetic will be prescribed to help stop the feeling of urgency until the antibiotic has a chance to clear the infection. This may cause your urine to be dark orange. Certain urine infections require a culture. If the doctor obtained a culture, the results will be back in two days. You should call to see if a change in treatment is needed. A repeat urinalysis after you finish treatment is often recommended. The physician will let you know if further testing is required. Call the doctor if you develop fever, chills, flank pain, inability to urinate, or blood in the urine. Chronic Pain Control: We do not manage chronic pain in the Emergency Department. For on-going chronic pain that does not improve, you will need to see your private doctor or sole painter. We do not provide medication management of chronic painful conditions. If you wish, we can provide the name of local pain management physicians. Take the medication as prescribed for the urinary tract infection. Be sure to check your sugars and take insulin accordingly. Follow-up with your primary care doctor/pain management doctor tomorrow for recheck and additional pain medication if needed. RETURN TO THE EMERGENCY ROOM IF ANY NEW OR WORSENING SYMPTOMS. Prescriptions: Cephalexin Monohydrate [Keflex 500 mg Capsule] 500 mg PO TID #15 capsule Scribe Attestation: 04/06/17 15:20 I personally performed the services described in the documentation, reviewed and edited the documentation which was dictated to the scribe in my presence, and it accurately records my words and actions. (MÓNICA CEVALLOS) Scribe Documentation - Scribe Written by Yuly:: yuly [place], 04/06/2017, 1325 acting as scribe for :: Kenia <DARIAN ALFONSO - Last Filed: 04/06/17 13:28>
[2017-04-06] MEDS ORDERED: TRAMADOL HCL 50 MG TABLET PO ONE (13:33)
[2017-04-06 13:41] LABS: ALANINE AMINOTRANSFERASE 38 U/L (9-52); ALBUMIN 4.1 g/dL (3.5-5.0); ALKALINE PHOSPHATASE 147 U/L (38-126); ANION GAP 13 (5-19); ASPARTATE AMINO TRANSFERASE 23 U/L (14-36); BILIRUBIN,DIRECT 0.4 mg/dL (0.0-0.4); BLOOD UREA NITROGEN 12 mg/dL (7-20); CALCIUM 10.1 mg/dL (8.4-10.2); CARBON DIOXIDE 21 mmol/L (22-30); CHLORIDE 103 mmol/L (98-107); CREATINE KINASE 30 U/L (30-135); CREATININE RESULT 0.72 mg/dL (0.52-1.25); GLUCOSE 387 mg/dL (75-110); MAGNESIUM 1.6 mg/dL (1.6-2.3); POTASSIUM 3.2 mmol/L (3.6-5.0); SODIUM 137.1 mmol/L (137-145); TOTAL PROTEIN 7.1 g/dL (6.3-8.2)
[2017-04-06 13:42] LABS: ABSOLUTE MONOCYTES (AUTO) 1.1 10^3/uL (0.1-1.4); ABSOLUTE NEUT (AUTO) 7.1 10^3/uL (1.7-8.2); BASOPHILS % (AUTO) 0.3 % (0-2); HEMOGLOBIN 10.8 g/dL (12.0-15.5); HGB HCT DIFFERENCE -1.6; MEAN CORPUSCULAR HEMOGLOBIN 23.6 pg (27.0-33.4); MEAN CORPUSCULAR HGB CONC 31.7 g/dL (32.0-36.0); MEAN CORPUSCULAR VOLUME 75 fl (80-97); MONOCYTES % (AUTO) 12.1 % (3-13); RED BLOOD COUNT 4.57 10^6/uL (3.72-5.28); RED CELL DISTRIBUTION WIDTH 19.3 % (11.5-14.0); SEGMENTED NEUTROPHILS % (AUTO) 76.6 % (42-78); WHITE BLOOD COUNT 9.2 10^3/uL (4.0-10.5)
[2017-04-06 13:50] LABS: APPEARANCE,URINE TURBID; BILIRUBIN,URINE NEGATIVE (NEGATIVE); GLUCOSE, URINE >=500 mg/dL (NEGATIVE); KETONES,URINE NEGATIVE (NEGATIVE); LEUKOCYTE ESTERASE,URINE LARGE (NEGATIVE); NITRITE,URINE NEGATIVE (NEGATIVE); PROTEIN,URINE 100 mg/dL (NEGATIVE); URINE SPECIFIC GRAVITY 1.013; UROBILINOGEN,URINE NEGATIVE mg/dL (<2.0)
[2017-04-06 13:59] LABS: CREATINE KINASE MB 0.38 ng/mL (<4.55)
[2017-04-06 14:01] LABS: TROPONIN I < 0.012 ng/mL
[2017-04-06] MEDS ORDERED: RINGERS SOLUTION,LACTATED 1,000 ML IV ONE (14:29)
[2017-04-06] MEDS ORDERED: KETOROLAC TROMETHAMINE INJ/PF 30 MG/1 ML SDV IV ONE (14:29)
[2017-04-06] MEDS ORDERED: INSULIN REG, HUMAN 100 UNIT/ML 3 ML VIAL (PYX) IV ONE (14:41)
[2017-04-06] MEDS ORDERED: CEFTRIAXONE 1 GM/D5W RTU 50 ML IV ONE (14:46)
[2017-04-06 17:23] VITALS: BP 159/95
== END 2017-04-06 17:12 | disposition home or self-care (01) ==
LOC: ER 12:23
DX: E10.65 Type 1 diabetes mellitus with hyperglycemia (principal); G89.29 Other chronic pain; M54.5 Low back pain; S32.020A Wedge compression fracture of second lumbar vertebra, initial encounter for closed fracture; W19.XXXA Unspecified fall, initial encounter; I95.9 Hypotension, unspecified; N39.0 Urinary tract infection, site not specified; M19.90 Unspecified osteoarthritis, unspecified site; R41.0 Disorientation, unspecified; R00.0 Tachycardia, unspecified; M40.299 Other kyphosis, site unspecified; G35 Multiple sclerosis; Z85.828 Personal history of other malignant neoplasm of skin; Z85.43 Personal history of malignant neoplasm of ovary; Z87.891 Personal history of nicotine dependence; Z79.891 Long term (current) use of opiate analgesic; Z98.890 Other specified postprocedural states; Z98.51 Tubal ligation status
CPT/HCPCS: 99285; 96361; 96374; 36415; 87086; 82553; 82962; 82550; 83735; 85025; 80053; 81001; 84484; J1885; J1815; J7030; J7120

== ENCOUNTER 2017-04-25 20:41 | Emergency (ER) | payer MEDICAID ==
[2017-04-25] MEDS ORDERED: NORMAL SALINE 1000 ML 1,000 ML IV ONE (21:05)
[2017-04-25 21:38] LABS: ABSOLUTE BASOPHILS # (AUTO) 0.1 10^3/uL (0.0-0.2); ABSOLUTE EOSINOPHILS # (AUTO) 0.1 10^3/uL (0.0-0.6); ABSOLUTE LYMPHOCYTES (AUTO) 1.6 10^3/uL (0.5-4.7); ABSOLUTE MONOCYTES (AUTO) 0.6 10^3/uL (0.1-1.4); ABSOLUTE NEUT (AUTO) 3.1 10^3/uL (1.7-8.2); BASOPHILS % (AUTO) 0.9 % (0-2); EOSINOPHILS % (AUTO) 1.8 % (0-6); HEMATOCRIT 38.1 % (36.0-47.0); HGB HCT DIFFERENCE -2.1; LYMPHOCYTES % (AUTO) 29.4 % (13-45); MEAN CORPUSCULAR HEMOGLOBIN 24.3 pg (27.0-33.4); MEAN CORPUSCULAR HGB CONC 31.5 g/dL (32.0-36.0); MEAN CORPUSCULAR VOLUME 77 fl (80-97); MONOCYTES % (AUTO) 11.4 % (3-13); RED BLOOD COUNT 4.94 10^6/uL (3.72-5.28); RED CELL DISTRIBUTION WIDTH 18.7 % (11.5-14.0); SEGMENTED NEUTROPHILS % (AUTO) 56.5 % (42-78); WHITE BLOOD COUNT 5.5 10^3/uL (4.0-10.5)
[2017-04-25 21:40] LABS: VENOUS BLOOD BASE EXCESS -3.7 mmol/L; VENOUS BLOOD PCO2 31.5 mmHg (35-63); VENOUS BLOOD PH 7.42 (7.30-7.42)
[2017-04-25 22:00] LABS: ALANINE AMINOTRANSFERASE 36 U/L (9-52); ALBUMIN 4.6 g/dL (3.5-5.0); ALKALINE PHOSPHATASE 247 U/L (38-126); ANION GAP 18 (5-19); ASPARTATE AMINO TRANSFERASE 44 U/L (14-36); BILIRUBIN,DIRECT 0.4 mg/dL (0.0-0.4); BILIRUBIN,TOTAL 0.5 mg/dL (0.2-1.3); BLOOD UREA NITROGEN 5 mg/dL (7-20); CARBON DIOXIDE 21 mmol/L (22-30); CHLORIDE 97 mmol/L (98-107); CREATININE RESULT 0.53 mg/dL (0.52-1.25); SODIUM 135.8 mmol/L (137-145); TOTAL PROTEIN 7.8 g/dL (6.3-8.2)
[2017-04-25 22:09] LABS: GLUCOSE 501 mg/dL (75-110); POTASSIUM 2.8 mmol/L (3.6-5.0)
[2017-04-25] MEDS ORDERED: INSULIN LISPRO 100 UNIT/ML 3 ML VIAL SUBCUT ONE (22:15)
[2017-04-25] MEDS ORDERED: MAGNESIUM OXIDE 400 MG TABLET PO ONE (22:15)
[2017-04-25] MEDS ORDERED: POTASSIUM CHLORIDE 10 MEQ TABLET.SA PO ONE (22:15)
[2017-04-25 22:23] LABS: ADD ON TESTING BLD IN LAB ACKNOWLEDGE
[2017-04-25 22:28] LABS: APPEARANCE,URINE CLEAR; BILIRUBIN,URINE NEGATIVE (NEGATIVE); GLUCOSE, URINE >=500 mg/dL (NEGATIVE); KETONES,URINE NEGATIVE (NEGATIVE); LEUKOCYTE ESTERASE,URINE NEGATIVE (NEGATIVE); NITRITE,URINE NEGATIVE (NEGATIVE); PROTEIN,URINE NEGATIVE (NEGATIVE); URINE SPECIFIC GRAVITY 1.016; UROBILINOGEN,URINE NEGATIVE mg/dL (<2.0)
[2017-04-25 22:31] LABS: LIPASE 49.5 U/L (23-300)
--- NOTE | 2017-04-25 22:50 | EKG REPORT ---
SEVERITY:- BORDERLINE ECG - SINUS TACHYCARDIA CONSIDER ANTERIOR INFARCT : Confirmed by: Camille Frazier 25-Apr-2017 22:49:26
[2017-04-25] MEDS ORDERED: DIPHENHYDRAMINE HCL 50 MG/ML VIAL IV ONE (23:08)
[2017-04-25] MEDS ORDERED: LIDOCAINE 5% (700 MG) TRANSDERMAL ADH..PATCH TP ONE (23:08)
[2017-04-25] MEDS ORDERED: KETOROLAC TROMETHAMINE INJ/PF 30 MG/1 ML SDV IV ONE (23:08)
[2017-04-25] MEDS ORDERED: METOCLOPRAMIDE HCL INJ/PF 10 MG/2 ML SDV IV ONE (23:08)
--- NOTE | 2017-04-25 23:08 | ER Document Report ---
ED General - General Chief Complaint: High Blood Sugar Stated Complaint: BLOOD SUGAR ISSUES,BACK PAIN Time Seen by Provider: 04/25/17 22:13 Notes: Patient is a 61-year-old female with a past medical history of insulin- dependent diabetes, hypertension, chronic pain with opiate dependence who presents with hyperglycemia for the past 2 weeks as well as 1 week of left lower quadrant abdominal pain. Does describe it as a dull, constant aching pain. Nothing improves or worsens the pain. Patient denies a history of similar symptoms in the past although chart review indicates the patient often has this presentation of abdominal pain when she is having hypoglycemia. She has not had any vomiting or diarrhea. Does note associated nausea. No fever. Does have a remote history of a partial bladder resection as a child but otherwise no prior abdominal surgeries. She has not seen a primary care doctor regarding today's concerns. She states she has been taking her insulin as directed. TRAVEL OUTSIDE OF THE [place] IN LAST 30 DAYS: No - Related Data Allergies/Adverse Reactions: No Known Drug Allergies Allergy (Mild, Verified 04/06/17 12:36) Past Medical History - General Information source: Patient - Social History Smoking Status: Current Every Day Smoker Chew tobacco use (# tins/day): No Frequency of alcohol use: None Drug Abuse: None Lives with: Family Family History: Reviewed & Not Pertinent Patient has suicidal ideation: No Patient has homicidal ideation: No - Past Medical History Cardiac Medical History: Reports: Hx Hypertension Denies: Hx Congestive Heart Failure, Hx DVT, Hx Heart Attack, Hx Hypercholesterolemia, Hx Pulmonary Embolism Pulmonary Medical History: Reports: Hx Bronchitis, Hx COPD, Hx Pneumonia Neurological Medical History: Reports: Hx Migraine Endocrine Medical History: Reports: Hx Diabetes Mellitus Type 1. Denies: Hx Diabetes Mellitus Type 2, Hx Hyperthyroidism, Hx Hypothyroidism Renal/ Medical History: Denies: Hx Peritoneal Dialysis Malignancy Medical History: Reports: Hx Ovarian Cancer, Hx Skin Cancer GI Medical History: Reports: Hx Gastroesophageal Reflux Disease, Hx Hiatal Hernia, Hx Ulcer. Denies: Hx Cirrhosis, Hx Hepatitis Musculoskeltal Medical History: Reports Hx Arthritis, Reports Hx Multiple Sclerosis, Reports Hx Musculoskeletal Deformity, Reports Hx Musculoskeletal Trauma Skin Medical History: Reports Hx Psoriasis Psychiatric Medical History: Reports: Hx Anxiety, Hx Depression Traumatic Medical History: Reports: Hx Fractures - Bilateral humerus Infectious Medical History: Reports: Hx C-Diff. Denies: Hx Hepatitis Past Surgical History: Reports: Hx Genitourinary Surgery - Bladder, Hx Orthopedic Surgery - Right wrist, Hx Tubal Ligation - Immunizations Immunizations up to date: Yes Hx Diphtheria, Pertussis, Tetanus Vaccination: Yes Hx Pneumococcal Vaccination: 06/15/13 Review of Systems - Review of Systems Notes: Constitutional: Negative for fever. HENT: Negative for sore throat. Eyes: Negative for visual changes. Cardiovascular: Negative for chest pain. Respiratory: Negative for shortness of breath. Gastrointestinal: Positive for abdominal pain Genitourinary: Negative for dysuria. Musculoskeletal: Negative for back pain. Skin: Negative for rash. Neurological: Negative for headaches, weakness or numbness. 10 point ROS negative except as marked above and in HPI. Physical Exam - Vital signs Vitals: Temp Pulse Resp BP Pulse Ox 98.5 F 133 H 20 154/103 H 97 04/25/17 20:44 04/25/17 20:44 04/25/17 20:44 04/25/17 20:44 04/25/17 20:44 Tachycardia in triage is resolved at time of my assessment with heart rate of 92 Course - Re-evaluation Re-evalutation: 04/25/17 23:05 Presentation of asymptomatic hyperglycemia. There is no evidence of HHS or diabetic ketoacidosis on laboratories or based on clinical history. Patient's vitals are within normal limits. Patient also does complain of 2 weeks of left lower quadrant abdominal pain and does have some mild focal tenderness on examination. Although patient reports that she has no history of similar abdominal pain in the past, review of her medical records reviewed that frequent presentations with her hypoglycemia is also often accompanied with complaints of abdominal pain. She has had 5 CTs of her abdomen and pelvis since 2014 for abdominal pain related complaints. I discussed this with the patient and informed her of the risks of increasingly frequent radiographic imaging of her abdomen and the risk of associated malignancy due to recurrent imaging. Patient has verbalized an understanding that repeated CT scans are dangerous for her and may eventually result in the development of a malignancy. However she has requested a CT abdomen pelvis stating that she is worried about the cause of abdominal pain and that it is different than her baseline. Differential diagnostic considerations do include gastroparesis, colitis, possible diverticulitis, I do not clinically suspect an acute appendicitis, biliary pathology, pyelonephritis, nephrolithiasis, or ovarian related pathology based on her exam and history. Patient's laboratories do also demonstrate that she has mild hypokalemia at 2.8 which is asymptomatic. No EKG changes associated with this laboratory finding. Patient has had repletion of her potassium with oral potassium and magnesium as encouraged to follow-up with her primary care doctor regarding this hypokalemia. 04/26/17 00:48 CT the abdomen and pelvis has been completed and does not demonstrate any acute process. Repeat abdominal exam remains benign. Hyperglycemia has improved after receiving IV fluids and insulin. At this time will discharge with return precautions and follow-up recommendations. Verbal discharge instructions given a the bedside and opportunity for questions given. Medication warnings reviewed. Patient is in agreement with this plan and has verbalized understanding of return precautions and the need for primary care follow-up in the next 24-72 hours. - Vital Signs Vital signs: Temp Pulse Resp BP Pulse Ox 98.5 F 101 H 18 118/89 H 98 04/25/17 20:44 04/26/17 01:09 04/26/17 01:09 04/26/17 01:09 04/26/17 01:09 - Laboratory Result Diagrams: 04/25/17 21:21 04/25/17 21:21 Laboratory results interpreted by me: 04/25/17 04/25/17 04/25/17 21:21 21:21 21:21 MCV 77 L MCH 24.3 L MCHC 31.5 L RDW 18.7 H VBG pCO2 31.5 L Sodium 135.8 L Potassium 2.8 L* Chloride 97 L Carbon Dioxide 21 L BUN 5 L Glucose 501 H* POC Glucose AST 44 H Alkaline Phosphatase 247 H Urine Glucose (UA) 04/25/17 04/25/17 04/25/17 22:15 22:31 23:38 MCV MCH MCHC RDW VBG pCO2 Sodium Potassium Chloride Carbon Dioxide BUN Glucose POC Glucose 425 H* 378 H AST Alkaline Phosphatase Urine Glucose (UA) >=500 H - Diagnostic Test Radiology reviewed: Reports reviewed - EKG Interpretation by Me Additional EKG results interpreted by me: 04/26/17 00:49 Sinus tachycardia. Rate 109. No ST elevations or depressions. QTC is 475 Discharge - Discharge Clinical Impression: Hyperglycemia Abdominal pain Qualifiers: Abdominal location: left lower quadrant Qualified Code(s): R10.32 - Left lower quadrant pain Condition: Good Disposition: HOME, SELF-CARE Additional Instructions: You have been seen in the Emergency Department (ED) for abdominal pain. Your evaluation did not identify a clear cause of your symptoms but was generally reassuring. You need to followup urgently with your primary care doctor as your blood sugars were dangerously high today. You did not have any evidence of a dangerous condition associated with these blood sugars at this time. However, it is very important that you get your blood sugars under control. Please take all of your medications exactly as directed. You should avoid foods that are high in carbohydrates and sugary foods. Please return to emergency department immediately if you develop weakness, persistent vomiting, confusion, or any other symptoms that are concerning to you. Please also return to the ED if your abdominal pain worsens or fails to improve, you develop bloody vomiting, bloody diarrhea, you are unable to tolerate fluids due to vomiting, fever greater than 101, or other symptoms that concern you. Referrals: [facility] MD [Primary Care Provider] - Follow up in 3-5 days
--- NOTE | 2017-04-26 00:06 | RADIOLOGY REPORT (SQ) ---
EXAM DESCRIPTION: CT ABD/PELVIS WITH IV ONLY COMPLETED DATE/TIME: 04/25/2017 11:53 pm REASON FOR STUDY: llq ab pain COMPARISON: 09/19/2015 TECHNIQUE: CT scan of the abdomen and pelvis performed using helical scanning technique with dynamic intravenous contrast injection. No oral contrast. Images reviewed with lung, soft tissue, and bone windows. Reconstructed coronal and sagittal MPR images reviewed. Delayed images for evaluation of the urinary system also acquired. All images stored on PACS. All CT scanners at this facility use dose modulation, iterative reconstruction, and/or weight based d osing when appropriate to reduce radiation dose to as low as reasonably achievable (ALARA). [facility]: Dose Right [facility]: CareDose [facility]: Dose Right [facility]: Teradose 4D [facility]: EventRegist CONTRAST TYPE AND DOSE: contrast/concentration: Isovue 370.00 mg/ml; Total Contrast Delivered: 58.0 ml; Total Saline Delivered: 65.1 ml RENAL FUNCTION: GFR > 60. RADIATION DOSE: Up-to-date CT equipment and radiation dose reduction techniques were employed. CTDIv ol: 5.2 - 6.6 mGy. DLP: 594 mGy-cm.. LIMITATIONS: None. FINDINGS: LOWER CHEST: Large hiatal hernia with fluid-filled stomach but no evidence for obstruction . LIVER: Normal size. No masses. No dilated ducts. SPLEEN: Normal size. No focal lesions. PANCREAS: No masses. No significant calcifications. No adjacent inflammation or peripancreatic fluid collections. Pancreatic duct not dilated. GALLBLADDER: No identified stones by CT criteria. No inflammatory changes to suggest cholecystitis. ADRENAL GLANDS: No significant masses or asymmetry. RIGHT KIDNEY AND URETER: No solid masses. No significant calcifications. No hydronephrosis or hyd roureter. LEFT KIDNEY AND URETER: No solid masses. No significant calcifications. No hydronephrosis or hydr oureter. AORTA AND VESSELS: No aneurysm. No dissection. Renal arteries, SMA, celiac without stenosis. RETROPERITONEUM: No retroperitoneal adenopathy, hemorrhage or masses. BOWEL AND PERITONEAL CAVITY: No masses or inflammatory changes. No free fluid or peritoneal masses. Generalize varices. Similar to previous. APPENDIX: Distended bladder. PELVIS: No mass. No free fluid. Normal bladder. ABDOMINAL WALL: No masses. No hernias. BONES: Interval development of L2 compression fracture having the appearance of a burst fracture. OTHER: No other significant finding. IMPRESSION: Large hiatal hernia with fluid-filled stomach but no evidence for obstruction. 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 Distended bladder. Interval development of an L2 compression fracture having the appearance of a burst fracture. TECHNICAL DOCUMENTATION: JOB ID: [id number] Quality ID # 436: Final reports with documentation of one or more dose reduction techniques (e.g., Au tomated exposure control, adjustment of the mA and/or kV according to patient size, use of iterative reconstruction technique) 2010 [employer]- All Rights Reserved
[2017-04-26 01:10] VITALS: BP 118/89
== END 2017-04-26 01:08 | disposition home or self-care (01) ==
LOC: ER 20:41
DX: E11.65 Type 2 diabetes mellitus with hyperglycemia (principal); R10.32 Left lower quadrant pain; Z79.4 Long term (current) use of insulin; I10 Essential (primary) hypertension; G89.29 Other chronic pain; F11.20 Opioid dependence, uncomplicated; F17.200 Nicotine dependence, unspecified, uncomplicated
CPT/HCPCS: 93005; 99285; 96361; 96374; 96375; 36415; 82962; 83690; 85025; 80053; 81001; 84484; 82803; 74177; 93010; J3490 ×2; J1200; J1815; J1885; J2765; J7030

== ENCOUNTER 2017-05-03 13:48 | Emergency (ER) | payer MEDICAID ==
[2017-05-03] MEDS ORDERED: ASPIRIN 81 MG TABLET, CHEWABLE PO ONE (14:47)
[2017-05-03] MEDS ORDERED: NORMAL SALINE 1000 ML 1,000 ML IV ONE (14:56)
[2017-05-03] MEDS ORDERED: NORMAL SALINE 1000 ML 1,000 ML IV PRN (14:56)
--- NOTE | 2017-05-03 15:00 | ER Document Report ---
ED General - General Chief Complaint: Chest Pain Stated Complaint: CHEST PAIN Time Seen by Provider: 05/03/17 14:49 TRAVEL OUTSIDE OF THE [place] IN LAST 30 DAYS: No - HPI Patient complains to provider of: Chest pain Notes: Patient coming in for evaluation of chest pain left side of her chest. Patient also complains of nausea vomiting. Patient states pain nausea vomiting symptoms started earlier today. Patient states that she did take 70 units of her Lantus just prior to arrival here in the ER. Patient has a long-standing history of noncompliance DKA and HHS in the past. Upon my evaluation patient is tachycardic and hypotensive. Patient denies any other symptoms denies fevers chills denies any diarrhea. Denies any recent antibiotics. Patient states chest pain achy hurts to move denies any trauma - Related Data Allergies/Adverse Reactions: No Known Drug Allergies Allergy (Mild, Verified 04/06/17 12:36) Past Medical History - Social History Smoking Status: Former Smoker Chew tobacco use (# tins/day): No Frequency of alcohol use: None Drug Abuse: None Family History: Reviewed & Not Pertinent Patient has suicidal ideation: No Patient has homicidal ideation: No - Past Medical History Cardiac Medical History: Reports: Hx Hypertension Denies: Hx Congestive Heart Failure, Hx DVT, Hx Heart Attack, Hx Hypercholesterolemia, Hx Pulmonary Embolism Pulmonary Medical History: Reports: Hx Bronchitis, Hx COPD, Hx Pneumonia Neurological Medical History: Reports: Hx Migraine Endocrine Medical History: Reports: Hx Diabetes Mellitus Type 1. Denies: Hx Diabetes Mellitus Type 2, Hx Hyperthyroidism, Hx Hypothyroidism Renal/ Medical History: Denies: Hx Peritoneal Dialysis Malignancy Medical History: Reports: Hx Ovarian Cancer, Hx Skin Cancer GI Medical History: Reports: Hx Gastroesophageal Reflux Disease, Hx Hiatal Hernia, Hx Ulcer. Denies: Hx Cirrhosis, Hx Hepatitis Musculoskeltal Medical History: Reports Hx Arthritis, Reports Hx Multiple Sclerosis, Reports Hx Musculoskeletal Deformity, Reports Hx Musculoskeletal Trauma Skin Medical History: Reports Hx Psoriasis Psychiatric Medical History: Reports: Hx Anxiety, Hx Depression Traumatic Medical History: Reports: Hx Fractures - Bilateral humerus Infectious Medical History: Reports: Hx C-Diff. Denies: Hx Hepatitis Past Surgical History: Reports: Hx Genitourinary Surgery - Bladder, Hx Orthopedic Surgery - Right wrist, Hx Tubal Ligation - Immunizations Immunizations up to date: Yes Hx Diphtheria, Pertussis, Tetanus Vaccination: Yes Hx Pneumococcal Vaccination: 06/15/13 Review of Systems - Review of Systems Constitutional: No symptoms reported EENT: No symptoms reported Cardiovascular: Chest pain Respiratory: No symptoms reported Gastrointestinal: Nausea, Vomiting Genitourinary: No symptoms reported Female Genitourinary: No symptoms reported Musculoskeletal: No symptoms reported Skin: No symptoms reported Hematologic/Lymphatic: No symptoms reported Neurological/Psychological: No symptoms reported -: Yes All other systems reviewed and negative Physical Exam - Vital signs Vitals: Resp 26 H 05/03/17 13:53 Interpretation: Hypotensive, Tachycardic - General General appearance: Appears well, Alert - HEENT Head: Normocephalic, Atraumatic Eyes: Normal Pupils: PERRL - Respiratory Respiratory status: No respiratory distress Chest status: Tender - Palpation of the left lateral chest wall does reproduce patient's pain symptoms. Breath sounds: Normal Chest palpation: Normal - Cardiovascular Rhythm: Regular Heart sounds: Normal auscultation Murmur: No - Abdominal Inspection: Normal Distension: No distension Bowel sounds: Normal Tenderness: Nontender Organomegaly: No organomegaly - Rectal Stool: Black Hemorrhoids: None - Back Back: Normal, Nontender - Extremities General upper extremity: Normal inspection, Nontender, Normal color, Normal ROM , Normal temperature General lower extremity: Normal inspection, Nontender, Normal color, Normal ROM , Normal temperature, Normal weight bearing. No: Alecia's sign - Neurological Neuro grossly intact: Yes Cognition: Normal Orientation: AAOx4 [place] Coma Scale Eye Opening: Spontaneous Jose Roberto Coma Scale Verbal: Oriented Jose Roberto Coma Scale Motor: Obeys Commands Jose Roberto Coma Scale Total: 15 Speech: Normal Motor strength normal: LUE, RUE, LLE, RLE Sensory: Normal - Psychological Associated symptoms: Normal affect, Normal mood - Skin Skin Temperature: Warm Skin Moisture: Dry Skin Color: Normal Course - Re-evaluation Re-evalutation: 05/03/17 14:59 Concerned about DKA or HH S. More likely this is underlying issues for the patient's symptoms. EKG does not show any concerning findings EKG interpreted by myself shows sinus tachycardia with a rate of 132 TX 128 QRS duration 72 QT QTc [address] segment or T-wave changes 05/03/17 15:00 Patient asking for pain medication explained to patient this time we will withhold any pain medication 05/03/17 15:51 Hemoglobin returned less than 8 reevaluates patient patient states now is having diarrhea multiple times and has been black. Reviewed the patient's previous visit shows history of DKA HHS GI bleeds in past patient has a hiatal hernia with varices also GI bleeding in the past with a colonoscopy showing blood in the colon however no signs of active bleeding concern about possible AV malformation suggesting a bleeding scan to be form however have no record of this patient is unable to give me any history that she received a bleeding scan patient does not understand questioning. Will type and screen will go ahead and give 2 units of blood is at the patient remains to be tachycardic patient also has dark black stools will give IV pushes of Protonix is at patient will more likely require other medications and only has 2 IVs at this time 05/03/17 17:55 Discussed with hospitalist staff recommend transfer this time due to lack of GI coverage and general surgery does not perform any type of scopes. Discussed with patient patient does not have a preference for transfer. Blood pressure has improved although patient does remain tachycardic. Will start patient on a low-dose insulin drip for her HHS. 05/03/17 23:20 Patient's case was discussed with hospitalist at [facility] Dr[facility] Jackson staff who agrees to admit the patient accepted in transfer. Patient's vital signs have improved however upon time of transfer patient stable refusing transportation requesting to sign out AGAINST MEDICAL ADVICE due to the fact that she will be in pain on the right now patient has been down the ER for greater than 4 hours without any pain medication. Explained to patient that I will give her a small amount of septal however at you believe that she is manipulating the situation to receive narcotic pain medication is that she is had opiate dependence after receiving fentanyl patient agreed to continue with transportation patient otherwise stable for transfer - Vital Signs Vital signs: Temp Pulse Resp BP Pulse Ox 98.4 F 106 H 14 143/87 H 100 05/03/17 20:33 05/03/17 20:05 05/03/17 20:33 05/03/17 20:30 05/03/17 20:33 - Laboratory Result Diagrams: 05/03/17 14:35 05/03/17 14:35 Laboratory results interpreted by me: 05/03/17 05/03/17 05/03/17 14:35 14:35 14:35 WBC 11.6 H RBC 3.10 L Hgb 7.3 L Hct 24.0 L MCV 77 L MCH 23.4 L MCHC 30.3 L RDW 18.8 H PT APTT VBG pH VBG pCO2 VBG HCO3 Sodium 132.4 L Carbon Dioxide 18 L BUN 38 H Glucose 624 H* POC Glucose Hemoglobin A1c % Serum Osmolality AST 13 L Creatine Kinase < 20 L Total Protein 5.6 L Albumin 3.2 L Lipase 20.8 L Urine Glucose (UA) Urine Ketones Crossmatch 05/03/17 05/03/17 05/03/17 14:35 14:35 14:35 WBC RBC Hgb Hct MCV MCH MCHC RDW PT 15.7 H APTT 21.0 L VBG pH VBG pCO2 VBG HCO3 Sodium Carbon Dioxide BUN Glucose POC Glucose Hemoglobin A1c % 8.8 H Serum Osmolality 320 H AST Creatine Kinase Total Protein Albumin Lipase Urine Glucose (UA) Urine Ketones Crossmatch 05/03/17 05/03/17 05/03/17 14:58 15:00 16:17 WBC RBC Hgb Hct MCV MCH MCHC RDW PT APTT VBG pH 7.47 H VBG pCO2 27.8 L VBG HCO3 19.6 L Sodium Carbon Dioxide BUN Glucose POC Glucose > 550 H* Hemoglobin A1c % Serum Osmolality AST Creatine Kinase Total Protein Albumin Lipase Urine Glucose (UA) >=500 H Urine Ketones TRACE H Crossmatch 05/03/17 05/03/17 05/03/17 16:20 18:39 20:02 WBC RBC Hgb Hct MCV MCH MCHC RDW PT APTT VBG pH VBG pCO2 VBG HCO3 Sodium Carbon Dioxide BUN Glucose POC Glucose 399 H 384 H Hemoglobin A1c % Serum Osmolality AST Creatine Kinase Total Protein Albumin Lipase Urine Glucose (UA) Urine Ketones Crossmatch See Detail Critical Care Note - Critical Care Note Total time excluding time spent on procedures (mins): 40 Comments: Multiple evaluations for hypotension Discharge - Discharge Clinical Impression: Hyperosmolar non-ketotic state in patient with type 2 diabetes mellitus, C. difficile colitis, Hypotension Lumbar compression fracture Qualifiers: Encounter type: initial encounter Fracture type: closed GI bleed Qualifiers: GI bleed type/associated pathology: unspecified gastrointestinal hemorrhage type Qualified Code(s): K92.2 - Gastrointestinal hemorrhage, unspecified Condition: Serious Disposition: [facility] Referrals: GIUSEPPE WHITE MD [Primary Care Provider] - Follow up as needed
[2017-05-03 15:08] LABS: ABSOLUTE BASOPHILS # (AUTO) 0.1 10^3/uL (0.0-0.2); ABSOLUTE LYMPHOCYTES (AUTO) 2.3 10^3/uL (0.5-4.7); ABSOLUTE NEUT (AUTO) 8.2 10^3/uL (1.7-8.2); BASOPHILS % (AUTO) 0.9 % (0-2); EOSINOPHILS % (AUTO) 0.3 % (0-6); HGB HCT DIFFERENCE -2.1; LYMPHOCYTES % (AUTO) 19.8 % (13-45); MEAN CORPUSCULAR HEMOGLOBIN 23.4 pg (27.0-33.4); MEAN CORPUSCULAR HGB CONC 30.3 g/dL (32.0-36.0); MEAN CORPUSCULAR VOLUME 77 fl (80-97); MONOCYTES % (AUTO) 8.8 % (3-13); RED CELL DISTRIBUTION WIDTH 18.8 % (11.5-14.0); SEGMENTED NEUTROPHILS % (AUTO) 70.2 % (42-78); WHITE BLOOD COUNT 11.6 10^3/uL (4.0-10.5)
[2017-05-03 15:12] LABS: LIPASE 20.8 U/L (23-300); MAGNESIUM 1.8 mg/dL (1.6-2.3)
[2017-05-03 15:12] LABS: VENOUS BLOOD BASE EXCESS -3.4 mmol/L; VENOUS BLOOD HCO3 19.6 mmol/L (20-32); VENOUS BLOOD PCO2 27.8 mmHg (35-63); VENOUS BLOOD PH 7.47 (7.30-7.42)
[2017-05-03 15:13] LABS: ALANINE AMINOTRANSFERASE 22 U/L (9-52); ALBUMIN 3.2 g/dL (3.5-5.0); ALKALINE PHOSPHATASE 118 U/L (38-126); ANION GAP 10 (5-19); ASPARTATE AMINO TRANSFERASE 13 U/L (14-36); BILIRUBIN,DIRECT 0.4 mg/dL (0.0-0.4); BILIRUBIN,TOTAL 0.6 mg/dL (0.2-1.3); BLOOD UREA NITROGEN 38 mg/dL (7-20); CALCIUM 9.3 mg/dL (8.4-10.2); CARBON DIOXIDE 18 mmol/L (22-30); CHLORIDE 104 mmol/L (98-107); CREATININE RESULT 0.61 mg/dL (0.52-1.25); POTASSIUM 3.6 mmol/L (3.6-5.0); SODIUM 132.4 mmol/L (137-145); TOTAL PROTEIN 5.6 g/dL (6.3-8.2)
[2017-05-03 15:20] LABS: CREATINE KINASE < 20 U/L (30-135)
[2017-05-03 15:25] LABS: GLUCOSE 624 mg/dL (75-110)
[2017-05-03 15:35] LABS: HEMOGLOBIN 7.3 g/dL (12.0-15.5)
[2017-05-03 15:36] LABS: TROPONIN I < 0.012 ng/mL
[2017-05-03] MEDS ORDERED: PANTOPRAZOLE SODIUM 40 MG VIAL IV ONE (15:47)
[2017-05-03] MEDS ORDERED: NORMAL SALINE 250 ML IV PRN ×2 (15:48)
[2017-05-03 15:56] LABS: PROTHROMBIN TIME 15.7 SEC (11.4-15.4)
[2017-05-03 16:33] LABS: APPEARANCE,URINE CLEAR; BILIRUBIN,URINE NEGATIVE (NEGATIVE); GLUCOSE, URINE >=500 mg/dL (NEGATIVE); KETONES,URINE TRACE mg/dL (NEGATIVE); LEUKOCYTE ESTERASE,URINE NEGATIVE (NEGATIVE); NITRITE,URINE NEGATIVE (NEGATIVE); PROTEIN,URINE NEGATIVE (NEGATIVE); URINE SPECIFIC GRAVITY 1.021; UROBILINOGEN,URINE NEGATIVE mg/dL (<2.0)
--- NOTE | 2017-05-03 16:34 | RADIOLOGY REPORT (SQ) ---
EXAM DESCRIPTION: CHEST SINGLE VIEW COMPLETED DATE/TIME: 05/03/2017 4:26 pm REASON FOR STUDY: cp COMPARISON: CT abdomen and pelvis 04/25/2017 Chest films 03/12/2017 EXAM PARAMETERS: NUMBER OF VIEWS: One view. TECHNIQUE: Single frontal radiographic view of the chest acquired. RADIATION DOSE: NA LIMITATIONS: None. FINDINGS: LUNGS AND PLEURA: No opacities, masses or pneumothorax. No pleural effusion. MEDIASTINUM AND HILAR STRUCTURES: Large retrocardiac hiatal hernia containing the majority of the sto mach. HEART AND VASCULAR STRUCTURES: Heart normal in size. Normal vasculature. BONES: Old healed left posterolateral rib fractures. Old healed bilateral proximal humerus fractures HARDWARE: None in the chest. OTHER: No other significant finding. IMPRESSION: No acute infiltrates. Large retrocardiac hiatal hernia with air-fluid level TECHNICAL DOCUMENTATION: JOB ID: [id number]
[2017-05-03 16:48] LABS: URINE BARBITURATES SCREEN NEGATIVE; URINE METHADONE SCREEN NEGATIVE; URINE OPIATES LOW NEGATIVE; URINE PHENCYCLIDINE SCREEN NEGATIVE
[2017-05-03] MEDS ORDERED: METRONIDAZOLE 500 MG/NS RTU 100 ML IV ONE (17:40)
[2017-05-03] MEDS ORDERED: DEXTROSE 40% GEL 15 GM TUBE PO PRN ×2 (17:41)
[2017-05-03] MEDS ORDERED: GLUCAGON,HUMAN RECOMB 1 MG INJ IM PRN (17:41)
[2017-05-03] MEDS ORDERED: DEXTROSE 50%-WATER 25 GM/50 ML DISP.SYRIN IV PRN ×2 (17:41)
[2017-05-03] MEDS ORDERED: NORMAL SALINE 100 ML with INSULIN REGULAR, HUMAN 100 UNIT IV PRN ×2 (17:41)
[2017-05-03] MEDS ORDERED: INSULIN REG, HUMAN 100 UNIT/ML 3 ML VIAL (PYX) ONE (18:31)
[2017-05-03] MEDS ORDERED: FENTANYL CITRATE INJ/PF 100 MCG/2 ML AMPUL IV ONE (20:23)
[2017-05-03 20:34] VITALS: BP 143/87
--- NOTE | 2017-05-04 07:58 | EKG REPORT ---
SEVERITY:- ABNORMAL ECG - SINUS TACHYCARDIA PROBABLE LVH WITH SECONDARY REPOL ABNRM : Confirmed by: Luis Alberto Walls MD 04-May-2017 07:58:15
== END 2017-05-03 20:51 | disposition short-term general hospital (02) ==
LOC: ER 13:48
DX: E11.00 Type 2 diabetes mellitus with hyperosmolarity without nonketotic hyperglycemic-hyperosmolar coma (NKHHC) (principal); I95.9 Hypotension, unspecified; A04.7 Enterocolitis due to Clostridium difficile; K92.2 Gastrointestinal hemorrhage, unspecified
CPT/HCPCS: 93005; 99291; 51701; 96375; 96365; 96366; 86900; 86901; 36415; 87040; 82553; 36430; 86850; 86922; 82962; 82550; 83690; 83735; 83930; 85025; 85610; 85730; 82272; 80053; 81001; 84484; 80307; 83036; 86920; 87493 ×2; 82803; 71010; 93010; P9016; S0164; J7030

== ENCOUNTER 2017-08-15 03:35 | Emergency (ER) | payer MEDICAID ==
[2017-08-15] MEDS ORDERED: LORAZEPAM INJ 2 MG/1 ML VIAL IV ONE (04:09)
[2017-08-15 04:29] LABS: APPEARANCE,URINE TURBID; BILIRUBIN,URINE NEGATIVE (NEGATIVE); GLUCOSE, URINE 150 mg/dL (NEGATIVE); KETONES,URINE TRACE mg/dL (NEGATIVE); LEUKOCYTE ESTERASE,URINE LARGE (NEGATIVE); NITRITE,URINE POSITIVE (NEGATIVE); PROTEIN,URINE 100 mg/dL (NEGATIVE); URINE SPECIFIC GRAVITY 1.016; UROBILINOGEN,URINE NEGATIVE mg/dL (<2.0)
--- NOTE | 2017-08-15 04:30 | ER Document Report ---
ED General - General TRAVEL OUTSIDE OF THE [place] IN LAST 30 DAYS: No <ZURI BILLY - Last Filed: 08/15/17 06:33> <MÓNICA CEVALLOS - Last Filed: 08/15/17 14:37> - General Chief Complaint: Psych Problem Stated Complaint: PSYCH EVAL Time Seen by Provider: 08/15/17 03:57 Notes: Patient is a pleasant 61-year-old female who presents to paramedics. Apparently earlier today police were called because her son and her son's boyfriend who live with her accused her of stealing Clonopin away from them and the patient has been confused and not making sense. Patient denies this. Patient says later on in the night she says that her son and her son's boyfriend told her that they hate her that they wish she was not around anymore. I did clarify with the patient and she does say that this is her apartment that they do live with her. Patient repeatedly says " I dont know whats going on. Nothing makes sense". Patient cannot really tell me whether or not she is suicidal not. She is crying hysterically and very anxious and is not at all in control of her emotions. Patient denies taking the Klonopin. I suspect that she probably did not take the Klonopin or that she at least did not ingest the Klonopin being the fact that she is very hyper and emotionally upset and tachycardic which would be the opposite reaction I would expect if she overdosed on Klonopin. (ZURI BILLY) - Related Data Allergies/Adverse Reactions: No Known Drug Allergies Allergy (Mild, Verified 04/06/17 12:36) Past Medical History - Social History Smoking Status: Unknown if Ever Smoked Frequency of alcohol use: None Drug Abuse: None Family History: Reviewed & Not Pertinent Patient has suicidal ideation: No Patient has homicidal ideation: No - Past Medical History Cardiac Medical History: Reports: Hx Hypertension Denies: Hx Congestive Heart Failure, Hx DVT, Hx Heart Attack, Hx Hypercholesterolemia, Hx Pulmonary Embolism Pulmonary Medical History: Reports: Hx Bronchitis, Hx COPD, Hx Pneumonia Neurological Medical History: Reports: Hx Migraine Endocrine Medical History: Reports: Hx Diabetes Mellitus Type 1. Denies: Hx Diabetes Mellitus Type 2, Hx Hyperthyroidism, Hx Hypothyroidism Renal/ Medical History: Denies: Hx Peritoneal Dialysis Malignancy Medical History: Reports: Hx Ovarian Cancer, Hx Skin Cancer GI Medical History: Reports: Hx Gastroesophageal Reflux Disease, Hx Hiatal Hernia, Hx Ulcer. Denies: Hx Cirrhosis, Hx Hepatitis, Hx Pancreatitis Musculoskeltal Medical History: Reports Hx Arthritis, Reports Hx Multiple Sclerosis, Reports Hx Musculoskeletal Deformity, Reports Hx Musculoskeletal Trauma Skin Medical History: Reports Hx Psoriasis Psychiatric Medical History: Reports: Hx Anxiety, Hx Depression Traumatic Medical History: Reports: Hx Fractures - Bilateral humerus Infectious Medical History: Reports: Hx C-Diff. Denies: Hx Hepatitis Past Surgical History: Reports: Hx Genitourinary Surgery - Bladder, Hx Orthopedic Surgery - Right wrist, Hx Tubal Ligation - Immunizations Immunizations up to date: Yes Hx Diphtheria, Pertussis, Tetanus Vaccination: Yes Hx Pneumococcal Vaccination: 06/15/13 <ZURI BILLY - Last Filed: 08/15/17 06:33> Review of Systems - Review of Systems -: Yes ROS unobtainable due to patient's medical condition - Patient is emotionally upset and difficult to keep focused on questions. <ZURI BILLY - Last Filed: 08/15/17 06:33> Physical Exam <ZURI BILLY - Last Filed: 08/15/17 06:33> <MÓNICA CEVALLOS - Last Filed: 08/15/17 14:37> - Vital signs Vitals: Resp Pulse Ox 33 H 89 L 08/15/17 03:42 08/15/17 03:42 - Notes Notes: General Appearance: Well nourished, alert, , no acute distress, no obvious discomfort. Patient is crying hysterically. Vitals: reviewed, See vital signs table. Head: no swelling or tenderness to the head Eyes: PERRL, EOMI, Conjuctiva clear Mouth: No decreasd moisture Throat: No tonsillar inflammation, No airway obstruction, No lymphadenopathy Neck: Supple, no neck tenderness Some bruising over right upper chest. Patient denies being assaulted. Lungs: No wheezing, No rales, No rhonci, No accessory muscle use, good air exchange bilaterally. Heart: Normal rate, Regular rythm, No murmur, no rub Abdomen: Normal BS, soft, No rigidity, No abdominal tenderness, No guarding, no rebound, no abdominal masses, no organomegaly Extremities: strength 5/5 in all extremities, good pulses in all extremities, no swelling or tenderness in the extremities, no edema. Skin: warm, dry, appropriate color, no rash Neuro: speech clear, oriented x 3, normal affect, responds appropriately to questions. Cranial nerves II through XII are intact. Patient does have equal strength in all 4 extremities. No focal neurologic deficits seen. (ZURI BILLY) Course - Laboratory Result Diagrams: 08/15/17 04:25 08/15/17 04:25 <ZURI BILLY - Last Filed: 08/15/17 06:33> - Laboratory Result Diagrams: 08/15/17 04:25 08/15/17 10:28 <MÓNICA CEVALLOS - Last Filed: 08/15/17 14:37> - Re-evaluation Re-evalutation: 08/15/17 05:32 Spoke with the hospitalist because the patient's hypokalemia and UTI. Also patient is on no psych medications for his heart rate to call this purely slight at this time. Patient is now calm but sleeping after the Ativan. I did speak with the hospitalist who is taking care of the patient before and does admit that she has severe anxiety issues and that this could purely be psych. At this time she wants us to wait to see how she does after she wakes up from the Ativan and see if she is calm and appropriate no longer confused. Also we can repeat her chemistry panel to see if her potassium is improving to a reasonable range. We will wait to see how she is when she wakes up to make sure that she is no longer confused and to make sure that is not a UTI that is causing her confusion. I will order her insulin to be given as she has a prescribed so that she will not developed hyperglycemia as she has had admissions many times in the past for hyperglycemia. 08/15/17 06:29 I have ordered repeat chemistry panel at 10am to recheck her postassium level. Patient will not be cleared for discharge until her mental status is normal, her potassium is within normal range, and psych has evaluated and cleared her. I have ordered her home meds, but told the nurse to hold this morning's dose of gabapentin because she is still a little somnolent from the ativan. I still am not able to get a clear history due to her being still a little sedated form the Atvian. Patient will need reassessment. Patient checked out to morning ER physician, Dr. Cevallos. (ZURI BILLY) - Vital Signs Vital signs: Temp Pulse Resp BP Pulse Ox 97.3 F 15 105/80 100 08/15/17 06:45 08/15/17 08:01 08/15/17 08:01 08/15/17 08:01 - Laboratory Laboratory results interpreted by me: 08/15/17 08/15/17 08/15/17 03:56 04:25 04:25 WBC 13.7 H MCV 79 L MCH 26.2 L RDW 17.4 H Absolute Neutrophils 9.9 H Absolute Monocytes 1.7 H Potassium 2.5 L* Chloride Carbon Dioxide 19 L Glucose 214 H POC Glucose Direct Bilirubin 0.5 H AST 43 H Alkaline Phosphatase 178 H Urine Protein 100 H Urine Glucose (UA) 150 H Urine Ketones TRACE H Urine Blood SMALL H Urine Nitrite POSITIVE H Ur Leukocyte Esterase LARGE H Salicylates < 1.0 L Acetaminophen < 10 L 08/15/17 08/15/17 06:43 10:28 WBC MCV MCH RDW Absolute Neutrophils Absolute Monocytes Potassium Chloride 110 H Carbon Dioxide 20 L Glucose 142 H POC Glucose 215 H Direct Bilirubin AST Alkaline Phosphatase Urine Protein Urine Glucose (UA) Urine Ketones Urine Blood Urine Nitrite Ur Leukocyte Esterase Salicylates Acetaminophen - EKG Interpretation by Me Additional EKG results interpreted by me: 08/15/17 04:30 EKG is reviewed and interpreted by me. EKG shows sinus tachycardia with rate of [address] segment elevation or depression. No ischemic T-wave inversions. MD interval, QRS duration, QTc intervals are within normal range. No old EKG available for comparison. (ZURI BILLY) Discharge <ZURI BILLY - Last Filed: 08/15/17 06:33> <MÓNICA CEVALLOS - Last Filed: 08/15/17 14:37> - Discharge Clinical Impression: Hypokalemia UTI (urinary tract infection) Qualifiers: Urinary tract infection type: site unspecified Hematuria presence: without hematuria Qualified Code(s): N39.0 - Urinary tract infection, site not specified Condition: Stable Disposition: HOME, SELF-CARE Additional Instructions: Urinary Tract Infection: Your evaluation indicates that you have a urinary tract infection. This is due to germs growing in the bladder. This is a common problem. This infection usually responds quickly to antibiotics. Your antibiotic should be taken exactly as prescribed. Drink plenty of fluids -- three to four quarts a day. Occasionally, a bladder anesthetic will be prescribed to help stop the feeling of urgency until the antibiotic has a chance to clear the infection. This may cause your urine to be dark orange. Certain urine infections require a culture. If the doctor obtained a culture, the results will be back in two days. You should call to see if a change in treatment is needed. A repeat urinalysis after you finish treatment is often recommended. The physician will let you know if further testing is required. Call the doctor if you develop fever, chills, flank pain, inability to urinate, or blood in the urine. Hypokalemia: You have an abnormally decreased level of serum potassium. Hypokalemia may cause weakness, fatigue, or heart rhythm abnormalities. Sometimes there are no symptoms at all. Usually, low serum potassium is due to taking diuretics ( water pills). It can also be due to excessive vomiting or diarrhea. If no obvious cause is evident, further evaluation will be necessary. Treatment is usually oral potassium supplements. Take these exactly as prescribed. You may also want to select foods which are naturally high in potassium -- fruits (such as bananas, cantaloupe, grapes, oranges, prunes, tomatoes), fresh vegetables (potatoes, spinach, beans, peas), orange or tomato juice, tomato pasta sauce, milk, fish (halibut, tuna, salmon, candace) A follow-up blood test is usually performed to assure that the potassium is returning to normal. Call the physician if you suffer severe weakness, muscle twitching or cramping, palpitations (pounding or irregular heartbeat), or any other new or alarming symptoms. //////////////////////////////////////////////////////////////////////////////// //////////////////////////////////////////////////////////////////////////////// ///////////////// Take the medications as prescribed. Drink plenty of fluids. Follow-up with your doctor early next week to recheck your potassium levels. RETURN TO THE EMERGENCY ROOM IF ANY NEW OR WORSENING SYMPTOMS. Prescriptions: Cephalexin Monohydrate [Keflex 500 mg Capsule] 500 mg PO TID #21 capsule Potassium Chloride 10 meq PO DAILY #10 capsule.er
[2017-08-15 04:36] LABS: ABSOLUTE BASOPHILS # (AUTO) 0.1 10^3/uL (0.0-0.2); ABSOLUTE EOSINOPHILS # (AUTO) 0.1 10^3/uL (0.0-0.6); ABSOLUTE LYMPHOCYTES (AUTO) 1.9 10^3/uL (0.5-4.7); ABSOLUTE MONOCYTES (AUTO) 1.7 10^3/uL (0.1-1.4); ABSOLUTE NEUT (AUTO) 9.9 10^3/uL (1.7-8.2); BASOPHILS % (AUTO) 0.9 % (0-2); EOSINOPHILS % (AUTO) 0.9 % (0-6); HEMATOCRIT 39.3 % (36.0-47.0); HGB HCT DIFFERENCE -0.3; LYMPHOCYTES % (AUTO) 13.5 % (13-45); MEAN CORPUSCULAR HEMOGLOBIN 26.2 pg (27.0-33.4); MEAN CORPUSCULAR HGB CONC 33.2 g/dL (32.0-36.0); MEAN CORPUSCULAR VOLUME 79 fl (80-97); MONOCYTES % (AUTO) 12.4 % (3-13); RED BLOOD COUNT 4.98 10^6/uL (3.72-5.28); RED CELL DISTRIBUTION WIDTH 17.4 % (11.5-14.0); SEGMENTED NEUTROPHILS % (AUTO) 72.3 % (42-78); WHITE BLOOD COUNT 13.7 10^3/uL (4.0-10.5)
[2017-08-15 04:50] LABS: ALANINE AMINOTRANSFERASE 26 U/L (9-52); ALBUMIN 4.3 g/dL (3.5-5.0); ALKALINE PHOSPHATASE 178 U/L (38-126); ANION GAP 19 (5-19); ASPARTATE AMINO TRANSFERASE 43 U/L (14-36); BILIRUBIN,DIRECT 0.5 mg/dL (0.0-0.4); BLOOD UREA NITROGEN 18 mg/dL (7-20); CALCIUM 9.8 mg/dL (8.4-10.2); CARBON DIOXIDE 19 mmol/L (22-30); CHLORIDE 100 mmol/L (98-107); CREATININE RESULT 0.85 mg/dL (0.52-1.25); GLUCOSE 214 mg/dL (75-110); SODIUM 137.9 mmol/L (137-145); TOTAL PROTEIN 7.9 g/dL (6.3-8.2)
[2017-08-15 04:54] LABS: ALCOHOL < 10 mg/dL (NONE DETECTED)
[2017-08-15 04:56] LABS: POTASSIUM 2.5 mmol/L (3.6-5.0)
[2017-08-15] MEDS ORDERED: POTASSI CL 20 MEQ/50 ML RIDER 20 MEQ/50 ML RTUPB IV SCH (04:57)
[2017-08-15] MEDS ORDERED: CEFTRIAXONE INJ 1000 MG VIAL IV ONE (04:58)
[2017-08-15 04:59] LABS: URINE BARBITURATES SCREEN NEGATIVE; URINE METHADONE SCREEN NEGATIVE; URINE OPIATES LOW UNCONFIRMED POSITIVE; URINE PHENCYCLIDINE SCREEN NEGATIVE
--- NOTE | 2017-08-15 05:26 | RADIOLOGY REPORT (SQ) ---
EXAM DESCRIPTION: CHEST SINGLE VIEW COMPLETED DATE/TIME: 08/15/2017 5:15 am REASON FOR STUDY: bruising over right upper chest COMPARISON: Chest x-ray 05/03/2017. CT abdomen and pelvis 04/25/2017. EXAM PARAMETERS: NUMBER OF VIEWS: One view. TECHNIQUE: Single frontal radiographic view of the chest acquired. RADIATION DOSE: NA LIMITATIONS: None. FINDINGS: LUNGS AND PLEURA: No consolidation, pneumothorax or pleural effusion. MEDIASTINUM AND HILAR STRUCTURES: No masses. Contour normal. HEART AND VASCULAR STRUCTURES: Heart normal in size. No overt vascular congestion. BONES: Redemonstration of remote fractures at the bilateral proximal humeri. There are healed left-s ided rib fractures. HARDWARE: None in the chest. OTHER: There is a large hiatal hernia. IMPRESSION: No acute radiographic finding in the chest. Large hiatal hernia. TECHNICAL DOCUMENTATION: JOB ID: [id number] 2010 [employer]- All Rights Reserved
--- NOTE | 2017-08-15 05:35 | RADIOLOGY REPORT (SQ) ---
EXAM DESCRIPTION: SHOULDER RIGHT 2 OR MORE VIEWS COMPLETED DATE/TIME: 08/15/2017 5:15 am REASON FOR STUDY: bruising COMPARISON: Right shoulder x-ray 05/20/2013. Chest x-ray 05/03/2017. NUMBER OF VIEWS: Three views. TECHNIQUE: External rotation, Y view and 2 internal rotation images acquired of the right shoulder. LIMITATIONS: None. FINDINGS: MINERALIZATION: Osteopenia. BONES: There is redemonstration of chronic healed fracture at the proximal right humerus. No acute f racture is seen at the proximal right humerus. There is a mildly displaced fracture at the distal cl avicle. JOINTS: No dislocation. VISUALIZED LUNGS AND RIBS: No pneumothorax. No displaced rib fracture. SOFT TISSUES: No radiopaque foreign body. IMPRESSION: Mildly displaced fracture at the distal right clavicle. TECHNICAL DOCUMENTATION: JOB ID: [id number] 2010 [employer]- All Rights Reserved
[2017-08-15] MEDS ORDERED: NORMAL SALINE 1000 ML 1,000 ML IV ONE (05:42)
[2017-08-15] MEDS ORDERED: DEXTROSE 50%-WATER 25 GM/50 ML DISP.SYRIN IV PRN ×2 (05:44)
[2017-08-15] MEDS ORDERED: DEXTROSE 40% GEL 15 GM TUBE PO PRN ×2 (05:44)
[2017-08-15] MEDS ORDERED: INSULIN REG, HUMAN 100 UNIT/ML 3 ML VIAL (PYX) SUBCUT PRN (05:44)
[2017-08-15] MEDS ORDERED: GLUCAGON,HUMAN RECOMB 1 MG INJ IM PRN (05:44)
[2017-08-15] MEDS ORDERED: POTASSIUM CHLORIDE 10 MEQ TABLET.SA PO ONE ×2 (06:11→13:00)
[2017-08-15] MEDS ORDERED: DIPHENOXYLATE HCL/ATROP SULF 2.5-0.025 MG TABLET PO PRN (06:12)
[2017-08-15] MEDS ORDERED: POTASSI CL 20 MEQ/50 ML RIDER 20 MEQ/50 ML RTUPB IV ONE (06:40)
--- NOTE | 2017-08-15 06:42 | EKG REPORT ---
SEVERITY:- BORDERLINE ECG - SINUS TACHYCARDIA BORDERLINE T WAVE ABNORMALITIES : Confirmed by: Luis Alberto Walls MD 15-Aug-2017 06:41:14
--- NOTE | 2017-08-15 09:56 | ER Document Report ---
Doctor's Note Notes: 08/15/17 09:55 56-year-old female was seen last night and diagnosed with UTI as well as hypokalemia and mental status change. She was given supplemental potassium as well as Rocephin and p.o. antibiotics for her UTI. I am awaiting at 10 AM chemistry reevaluation as well as a psychiatric consult.
[2017-08-15] MEDS ORDERED: DIPHENOXYLATE HCL/ATROP SULF 2.5-0.025 MG TABLET PO SCH (10:00)
[2017-08-15] MEDS ORDERED: INSULIN GLARGINE,HUM.REC.ANLOG 1,000 UNIT/10 ML UNIT SUBCUT SCH (10:00)
[2017-08-15] MEDS: GABAPENTIN 300 MG CAPSULE PO SCH ×2 (11:05→12:29)
[2017-08-15 11:10] LABS: ANION GAP 10 (5-19); BLOOD UREA NITROGEN 16 mg/dL (7-20); CALCIUM 8.6 mg/dL (8.4-10.2); CARBON DIOXIDE 20 mmol/L (22-30); CHLORIDE 110 mmol/L (98-107); CREATININE RESULT 0.61 mg/dL (0.52-1.25); GLUCOSE 142 mg/dL (75-110); SODIUM 139.7 mmol/L (137-145)
[2017-08-15 11:20] LABS: POTASSIUM 3.7 mmol/L (3.6-5.0)
[2017-08-15] MEDS ORDERED: CEPHALEXIN 500 MG CAPSULE PO SCH (14:00)
--- NOTE | 2017-08-15 14:57 | PSYCHOLOGICAL NOTE ---
Psych Note - Psych Note Psych Note: Patient is a pleasant 61-year-old female who presents to paramedics. Apparently earlier today police were called because her son and her son's boyfriend who live with her accused her of stealing Clonopin away from them and the patient has been confused and not making sense. Patient denies this. Patient says later on in the night she says that her son and her son's boyfriend told her that they hate her that they wish she was not around anymore. I did clarify with the patient and she does say that this is her apartment that they do live with her. Patient repeatedly says " I don't know whats going on. Nothing makes sense". Patient cannot really tell me whether or not she is suicidal not. She is crying hysterically and very anxious and is not at all in control of her emotions. Patient denies taking the Klonopin. PER EMS [place] PD WAS CALLED TO HOME AND REPORT AGAINST SON WAS FILED. Patient disclosed that she is feeling better now however she still does not understand "why my son hates me so much." Patient's son reportedly has moved in with the patient to "get his stuff straightened out." He has lived with the patient for approximately 3 months. Patient reports there is only one bed in the home so it is very crowded. Patient states she came to [facility] because "there has to be reason he would say that... I thought the doctors could help me with that." Patient has a home care nurse and her daughter Nan is actively engaged with patient's day-to-day living; patient's daughter reportedly comes to the patient's home daily to ensure the patient only has access to the medication she needs for that day. Patient receives her medication from [facility] is seen outpatient mental health through [facility] Patient disclosed she has decided that she is going to have her son move out of her home. Patient was able to correctly identify the date as August 15, 2017 that she is in a hospital arrived but via EMS and the current president is Danny Guerrero. Clinician contacted patient's daughter, Nan [phone]. She disclosed she took the patient to her doctor's yesterday; "it seemed like she was speeded up. " She continued disclosed that the patient seemed to have a bunch of "conspiracy theories." Patient's son has been living with their mother and everything has been fine. My bother called me this morning and telling me that she called the cash register operator on him. My brother has left the home because he was told that he had to. She discloses this is not the first time the patient has reacted this way. Patient is alert and orientated to person, place, time and circumstance. Mood is dysphoric and slightly anxious with congruent affect. This would include slight psychomotor agitation (mild hands shaking), shaking her head no back-and- forth, slight downturn of the mouth etc. Patient denies suicidal and homicidal ideation. Patient denies auditory visual hallucinations. Behaviors are congruent with intact reality based presentation i.e. organized, linear thinking. Patient did not verbalize any possible delusion; however, was very focused on alleged family discord and her belief that her son hates. Conversational speech was within normal rate tone and prosody. Eye contact was fair. Attention and concentration was good. Insight, judgment, impulse control is currently good. Polysubstance abuse; Adderall, Xanax, and Alcohol Per history R/O bipolar Impression\\plan: Patient is considered psychiatrically clear. Patient does not meet IVC criteria per [place] GS 122C. Patient denies suicidal and homicidal ideation. Delusions are absent behaviors congruent with intact reality based presentation i.e. organized, linear and rational thinking. Patient reports that her son stated that he hated her and she felt she needed to come to [facility] because she thought the doctors could help her understand why he would say this. Patient currently is being treated for UTI. UTIs in geriatric population are known to cause and/or exasperate aggression, confusion, and psychosis. Patient currently is orientated and not demonstrating any behaviors that would indicate in psychosis. Patient is recommended to follow-up with outpatient mental health treatment. Dr. Dent was consulted and the care and management of this patient; attending physician is in agreement with recommendations and disposition.
--- NOTE | 2017-08-15 15:03 | ER Document Report ---
Doctor's Note Notes: 08/15/17 15:02 The patient is resting comfortably at this time. She did just recently finish a meal tray. She has been seen by the psychiatry department and judged to be cleared to return to the home. She is much more alert at this time compared to the description of her arrival. Her altered mental status early this morning was quite likely due to the urinary tract infection. She will be discharged with prescription for potassium capsules and cephalexin.
[2017-08-15] MEDS ORDERED: MAGNESIUM OXIDE 400 MG TABLET PO ONE (15:37)
[2017-08-15 16:26] VITALS: BP 106/38
[2017-08-16] MEDS ORDERED: INSULIN GLARGINE,HUM.REC.ANLOG 1,000 UNIT/10 ML UNIT SUBCUT SCH (10:00)
== END 2017-08-15 16:27 | disposition home or self-care (01) ==
LOC: ER 03:35
DX: N39.0 Urinary tract infection, site not specified (principal); E87.6 Hypokalemia; I10 Essential (primary) hypertension; J44.9 Chronic obstructive pulmonary disease, unspecified; E10.9 Type 1 diabetes mellitus without complications; Z98.51 Tubal ligation status; Z85.828 Personal history of other malignant neoplasm of skin; Z85.43 Personal history of malignant neoplasm of ovary
CPT/HCPCS: 93005; 99285; 96375; 96365; 96367; 36415; 82962; 80307 ×4; 83735; 85025; 80048; 80053; 81001; 71010; 73030; 93010; J3490 ×2; J2060; J0696; J3480; J7030; J1815

== ENCOUNTER → 2017-08-26 | Outpatient (CLI) | payer MEDICAID ==
--- NOTE | 2017-08-26 16:18 | RADIOLOGY REPORT (SQ) ---
EXAM DESCRIPTION: CHEST PA/LATERAL COMPLETED DATE/TIME: 08/26/2017 4:09 pm REASON FOR STUDY: OTHER FORMS OF DYSPNEA COMPARISON: 08/15/2017 NUMBER OF VIEWS: Two view. TECHNIQUE: Frontal and lateral radiographic views of the chest acquired. LIMITATIONS: None. FINDINGS: LUNGS AND PLEURA: No opacities, masses or pneumothorax. No pleural effusion. MEDIASTINUM AND HILAR STRUCTURES: No masses or contour abnormalities. HEART AND VASCULATURE: Heart normal size. No evidence for failure. BONY STRUCTURES: Old healed rib fractures left rib cage. HARDWARE: None. OTHER: Large hiatal hernia. IMPRESSION: No acute findings and no interval change. Large hiatal hernia again noted. TECHNICAL DOCUMENTATION: JOB ID: [id number] [employer]- All Rights Reserved
== END ==
LOC: OD 15:01
PROVIDERS: ATTEND Family Medicine
DX: R06.09 Other forms of dyspnea (principal); K44.9 Diaphragmatic hernia without obstruction or gangrene
CPT/HCPCS: 71020

== ENCOUNTER 2017-09-25 21:03 | Emergency (ER) | payer MEDICAID ==
[2017-09-25] MEDS ORDERED: NORMAL SALINE 1000 ML 1,000 ML IV ONE ×2 (21:07→23:29)
--- NOTE | 2017-09-25 22:36 | ER Document Report ---
ED General - General Mode of Arrival: Ambulatory Information source: Patient TRAVEL OUTSIDE OF THE [place] IN LAST 30 DAYS: No <VIV WALLACE - Last Filed: 09/26/17 03:13> <ANGELA THAKUR - Last Filed: 09/26/17 04:36> - General Stated Complaint: BLOOD SUGAR ISSUES Time Seen by Provider: 09/25/17 21:06 Notes: Patient is a 61-year-old female that presents to the emergency department today with complaints of abdominal pain. Patient states she recently got over a UTI, finishing her antibiotics last week. Patient had a BGL reading "high" prior to arrival today. Patient states she is on 40 units of Lantus 4 times a day and supplements with sliding scale Humalog. (VIV WALLACE) - Related Data Allergies/Adverse Reactions: No Known Drug Allergies Allergy (Mild, Verified 04/06/17 12:36) Past Medical History - General Information source: Patient - Social History Smoking Status: Never Smoker Cigarette use (# per day): No Frequency of alcohol use: None Drug Abuse: None Lives with: Family Family History: Reviewed & Not Pertinent - Past Medical History Cardiac Medical History: Reports: Hx Hypertension Pulmonary Medical History: Reports: Hx Bronchitis, Hx COPD, Hx Pneumonia Neurological Medical History: Reports: Hx Migraine Endocrine Medical History: Reports: Hx Diabetes Mellitus Type 1 Malignancy Medical History: Reports: Hx Ovarian Cancer, Hx Skin Cancer GI Medical History: Reports: Hx Gastroesophageal Reflux Disease, Hx Hiatal Hernia, Hx Ulcer Musculoskeltal Medical History: Reports Hx Arthritis, Reports Hx Multiple Sclerosis, Reports Hx Musculoskeletal Deformity, Reports Hx Musculoskeletal Trauma Skin Medical History: Reports Hx Psoriasis Psychiatric Medical History: Reports: Hx Anxiety, Hx Depression Traumatic Medical History: Reports: Hx Fractures - Bilateral humerus Infectious Medical History: Reports: Hx C-Diff Past Surgical History: Reports: Hx Genitourinary Surgery - Bladder, Hx Orthopedic Surgery - Right wrist, Hx Tubal Ligation - Immunizations Immunizations up to date: Yes Hx Diphtheria, Pertussis, Tetanus Vaccination: Yes Hx Pneumococcal Vaccination: 06/15/13 <VIV WALLACE - Last Filed: 09/26/17 03:13> Review of Systems - Review of Systems Constitutional: See HPI, Other - elevated BGLs EENT: No symptoms reported Cardiovascular: No symptoms reported Respiratory: No symptoms reported Gastrointestinal: See HPI, Abdominal pain Genitourinary: No symptoms reported Female Genitourinary: No symptoms reported Musculoskeletal: No symptoms reported Skin: No symptoms reported Hematologic/Lymphatic: No symptoms reported Neurological/Psychological: No symptoms reported -: Yes All other systems reviewed and negative <VIV WALLACE - Last Filed: 09/26/17 03:13> Physical Exam <VIV WALLACE - Last Filed: 09/26/17 03:13> <ANGELA THAKUR - Last Filed: 09/26/17 04:36> - Vital signs Vitals: Resp Pulse Ox 10 L 100 09/25/17 22:59 09/25/17 22:59 - Notes Notes: Physical Exam: General: Alert, chronically ill appearing. HEENT: Normocephalic. Atraumatic. PERRL. Extraocular movements intact. Oropharynx clear. Dry mucous membranes. Neck: Supple. Non-tender. Respiratory: No respiratory distress. Clear and equal breath sounds bilaterally. Cardiovascular: Regular rate and rhythm. Abdominal: Normal Inspection. Non-tender. No distension. Normal Bowel Sounds. Back: Non-tender. No deformity or step off. Extremities: Moves all four extremities. Upper extremities: Normal inspection. Normal ROM. Lower extremities: Normal inspection. No edema. Normal ROM. Neurological: Normal cognition. AAOx4. Normal speech. Psychological: Normal affect. Normal Mood. Skin: Warm. Dry. Normal color. (VIV WALLACE) Course - Laboratory Result Diagrams: 09/25/17 22:52 09/25/17 22:52 <VIV WALLACE - Last Filed: 09/26/17 03:13> - Laboratory Result Diagrams: 09/25/17 22:52 09/25/17 22:52 - Diagnostic Test Radiology reviewed: Reports reviewed <ANGELA THAKUR - Last Filed: 09/26/17 04:36> - Re-evaluation Re-evalutation: 09/26/17 04:34 Patient is a 61-year-old female who presents with hyperglycemia. She is a history of noncompliance and prescription medicine abuse. Patient is positive for opiates. There is no evidence for infection. Patient's initial acidosis is likely from opiates. She is awake alert. Blood sugar is controlled with fluids and insulin. The patient has insulin at home. She is instructed to use it as prescribed and follow-up with her doctor in the morning. Otherwise appears well. No evidence for UTI which patient was recently treated for. Stable for discharge. States she will call a cab to go home. (ANGELA THAKUR) - Vital Signs Vital signs: Temp Pulse Resp BP Pulse Ox 13 127/70 H 98 09/26/17 01:01 09/26/17 01:00 09/26/17 01:01 - Laboratory Laboratory results interpreted by me: 09/25/17 09/25/17 09/25/17 22:52 22:52 22:52 MCH 26.1 L MCHC 30.2 L RDW 17.5 H VBG pH BUN 4 L Glucose 690 H* POC Glucose Lactic Acid 2.7 H Alkaline Phosphatase 149 H Urine Glucose (UA) 09/25/17 09/25/17 09/26/17 22:52 22:52 02:11 MCH MCHC RDW VBG pH 7.23 L BUN Glucose POC Glucose 472 H* Lactic Acid Alkaline Phosphatase Urine Glucose (UA) >=500 H 09/26/17 03:17 MCH MCHC RDW VBG pH BUN Glucose POC Glucose 406 H* Lactic Acid Alkaline Phosphatase Urine Glucose (UA) Discharge <VIV WALLACE - Last Filed: 09/26/17 03:13> <ANGELA THAKUR - Last Filed: 09/26/17 04:36> - Discharge Clinical Impression: Hyperglycemia due to type 2 diabetes mellitus Qualifiers: Diabetes mellitus senior living insulin use: with senior living use Qualified Code(s): E11.65 - Type 2 diabetes mellitus with hyperglycemia; Z79.4 - moth exterminator (current ) use of insulin; Z79.4 - moth exterminator (current) use of insulin; Z79.4 - [facility] (current) use of insulin; Z79.4 - [facility] (current) use of insulin Condition: Stable Disposition: HOME, SELF-CARE Instructions: Hyperglycemia ([facility]), Diabetes ([facility]) Referrals: GIUSEPPE WHITE MD [Primary Care Provider] - 09/26/17 Scribe Attestation: 09/26/17 04:36 I personally performed the services described in the documentation, reviewed and edited the documentation which was dictated to the scribe in my presence, and it accurately records my words and actions. (ANGELA THAKUR) Scribe Documentation - Scribe Written by Scribe:: Carlos John, 09/26/2017 0320 acting as scribe for :: Kina <VIV WALLACE - Last Filed: 09/26/17 03:13>
[2017-09-25 23:11] LABS: VENOUS BLOOD BASE EXCESS -5.1 mmol/L; VENOUS BLOOD PCO2 55.8 mmHg (35-63); VENOUS BLOOD PH 7.23 (7.30-7.42)
[2017-09-25 23:12] LABS: ABSOLUTE EOSINOPHILS # (AUTO) 0.2 10^3/uL (0.0-0.6); ABSOLUTE LYMPHOCYTES (AUTO) 1.1 10^3/uL (0.5-4.7); ABSOLUTE MONOCYTES (AUTO) 0.5 10^3/uL (0.1-1.4); ABSOLUTE NEUT (AUTO) 2.3 10^3/uL (1.7-8.2); EOSINOPHILS % (AUTO) 5.3 % (0-6); HEMOGLOBIN 12.4 g/dL (12.0-15.5); LYMPHOCYTES % (AUTO) 26.9 % (13-45); MEAN CORPUSCULAR HEMOGLOBIN 26.1 pg (27.0-33.4); MEAN CORPUSCULAR HGB CONC 30.2 g/dL (32.0-36.0); MEAN CORPUSCULAR VOLUME 87 fl (80-97); MONOCYTES % (AUTO) 11.3 % (3-13); PLATELET COUNT 179 10^3/uL (150-450); RED BLOOD COUNT 4.74 10^6/uL (3.72-5.28); RED CELL DISTRIBUTION WIDTH 17.5 % (11.5-14.0); SEGMENTED NEUTROPHILS % (AUTO) 55.5 % (42-78); TOTAL CELLS COUNTED % (AUTO) 100 %; WHITE BLOOD COUNT 4.2 10^3/uL (4.0-10.5)
[2017-09-25 23:15] LABS: APPEARANCE,URINE CLEAR; BILIRUBIN,URINE NEGATIVE (NEGATIVE); COLOR,URINE STRAW; GLUCOSE, URINE >=500 mg/dL (NEGATIVE); KETONES,URINE NEGATIVE (NEGATIVE); LEUKOCYTE ESTERASE,URINE NEGATIVE (NEGATIVE); NITRITE,URINE NEGATIVE (NEGATIVE); PROTEIN,URINE NEGATIVE (NEGATIVE); URINE SPECIFIC GRAVITY 1.031; UROBILINOGEN,URINE NEGATIVE mg/dL (<2.0)
[2017-09-25 23:42] LABS: ALANINE AMINOTRANSFERASE 22 U/L (9-52); ALBUMIN 3.9 g/dL (3.5-5.0); ALKALINE PHOSPHATASE 149 U/L (38-126); ANION GAP 12 (5-19); ASPARTATE AMINO TRANSFERASE 24 U/L (14-36); BILIRUBIN,DIRECT 0.3 mg/dL (0.0-0.4); BILIRUBIN,TOTAL 0.4 mg/dL (0.2-1.3); BLOOD UREA NITROGEN 4 mg/dL (7-20); CALCIUM 9.2 mg/dL (8.4-10.2); CARBON DIOXIDE 22 mmol/L (22-30); CHLORIDE 103 mmol/L (98-107); MAGNESIUM 1.9 mg/dL (1.6-2.3); POTASSIUM 4.3 mmol/L (3.6-5.0); SODIUM 137.4 mmol/L (137-145); TOTAL PROTEIN 6.7 g/dL (6.3-8.2)
[2017-09-25 23:53] LABS: GLUCOSE 690 mg/dL (75-110)
--- NOTE | 2017-09-26 00:48 | RADIOLOGY REPORT (SQ) ---
EXAM DESCRIPTION: CHEST SINGLE VIEW CLINICAL HISTORY: AMS COMPARISON: 08/15/2017 FINDINGS: Single frontal view of the chest. Atherosclerotic calcification aortic arch. Heart is not enlarged. Retrocardiac air-filled opacity is unchanged likely representing a large hiatal hernia. Leads overlie the chest. No consolidation, pneumothorax, or pleural effusion. Remote left rib fractures are unchanged. Upper abdominal soft tissues are unremarkable. IMPRESSION: 1. No acute pulmonary process identified.. 2. Large hiatal hernia.
[2017-09-26] MEDS ORDERED: INSULIN REG, HUMAN 100 UNIT/ML 3 ML VIAL (PYX) IV ONE ×2 (02:18→03:30)
[2017-09-26 02:55] LABS: URINE AMPHETAMINES SCREEN NEGATIVE; URINE BARBITURATES SCREEN NEGATIVE; URINE BENZODIAZEPINES SCREEN NEGATIVE; URINE COCAINE SCREEN NEGATIVE; URINE MARIJUANA (THC) SCREEN NEGATIVE; URINE METHADONE SCREEN NEGATIVE; URINE PHENCYCLIDINE SCREEN NEGATIVE
[2017-09-26 05:08] VITALS: BP 104/71
== END 2017-09-26 05:25 | disposition home or self-care (01) ==
LOC: ER 21:03
DX: E11.65 Type 2 diabetes mellitus with hyperglycemia (principal); Z79.4 Long term (current) use of insulin; I10 Essential (primary) hypertension; J44.9 Chronic obstructive pulmonary disease, unspecified; Z98.51 Tubal ligation status; Z85.43 Personal history of malignant neoplasm of ovary; Z85.828 Personal history of other malignant neoplasm of skin
CPT/HCPCS: 99284; 96360; 36415; 87086; 82962; 83735; 85025; 80053; 81001; 80307; 82803; 83605; 71045; J1815; J7030

== ENCOUNTER 2017-10-02 13:43 | Emergency (ER) | payer SELFPAY ==
--- NOTE | 2017-10-02 14:10 | ER Document Report ---
ED Medical Screen (RME) - General Chief Complaint: High Blood Sugar Stated Complaint: VOMITING,DIARRHEA Time Seen by Provider: 10/02/17 14:07 Mode of Arrival: Wheelchair Information source: Patient Notes: 61-year-old diabetic female presents with complaints of not feeling well. Her blood sugar has been greater than 500 over the past few days. I have greeted and performed a rapid initial assessment of this patient. A comprehensive ED assessment and evaluation of the patient, analysis of test results and completion of the medical decision making process will be conducted by additional ED providers. PHYSICAL EXAMINATION: GENERAL: chronicall ill appearing well-nourished and in no acute distress. HEAD: Atraumatic, normocephalic. EYES: Pupils equal round extraocular movements intact, conjunctiva are normal. ENT: Nares patent NECK: Normal range of motion LUNGS: No respiratory distress Musculoskeletal: Normal range of motion NEUROLOGICAL: Normal speech, normal gait. PSYCH: Normal mood, normal affect. SKIN: Warm, Dry, normal turgor, no rashes or lesions noted. TRAVEL OUTSIDE OF THE [place] IN LAST 30 DAYS: No - Related Data Allergies/Adverse Reactions: No Known Drug Allergies Allergy (Mild, Verified 10/02/17 13:45) Past Medical History - Social History Family history: None - pt adopted - Past Medical History Cardiac Medical History: Reports: Hx Hypertension Denies: Hx Congestive Heart Failure, Hx DVT, Hx Heart Attack, Hx Hypercholesterolemia, Hx Pulmonary Embolism Pulmonary Medical History: Reports: Hx Bronchitis, Hx COPD, Hx Pneumonia Neurological Medical History: Reports: Hx Migraine Endocrine Medical History: Reports: Hx Diabetes Mellitus Type 1. Denies: Hx Diabetes Mellitus Type 2, Hx Hyperthyroidism, Hx Hypothyroidism Renal/ Medical History: Denies: Hx Peritoneal Dialysis Malignancy Medical History: Reports: Hx Ovarian Cancer, Hx Skin Cancer GI Medical History: Reports: Hx Gastroesophageal Reflux Disease, Hx Hiatal Hernia, Hx Ulcer. Denies: Hx Cirrhosis, Hx Hepatitis, Hx Pancreatitis Musculoskeltal Medical History: Reports Hx Arthritis, Reports Hx Multiple Sclerosis, Reports Hx Musculoskeletal Deformity, Reports Hx Musculoskeletal Trauma Skin Medical History: Reports Hx Psoriasis Psychiatric Medical History: Reports: Hx Anxiety, Hx Depression Traumatic Medical History: Reports: Hx Fractures - Bilateral humerus Infectious Medical History: Reports: Hx C-Diff. Denies: Hx Hepatitis Past Surgical History: Reports: Hx Genitourinary Surgery - Bladder, Hx Orthopedic Surgery - Right wrist, Hx Tubal Ligation - Immunizations Immunizations up to date: Yes Hx Diphtheria, Pertussis, Tetanus Vaccination: Yes Physical Exam - Vital signs Vitals: Temp Pulse Resp BP Pulse Ox 98.6 F 120 H 16 138/98 H 99 10/02/17 14:01 10/02/17 14:01 10/02/17 14:01 10/02/17 14:01 10/02/17 14:01 Course - Vital Signs Vital signs: Temp Pulse Resp BP Pulse Ox 98.6 F 120 H 16 138/98 H 99 10/02/17 14:01 10/02/17 14:01 10/02/17 14:01 10/02/17 14:01 10/02/17 14:01
[2017-10-02] MEDS ORDERED: NORMAL SALINE 1000 ML 1,000 ML IV ONE (14:45)
--- NOTE | 2017-10-02 15:07 | ER Document Report ---
ED General - General Chief Complaint: High Blood Sugar Stated Complaint: VOMITING,DIARRHEA Time Seen by Provider: 10/02/17 14:07 Mode of Arrival: Wheelchair Notes: Patient is a 61-year-old female presents emergency department with a chief complaint of hyperglycemia for the past 2 days. Patient states that she has been taking her home Humalog and Lantus as directed. She also admits to diarrhea and vomiting last night. She denies any blood in her vomit or her stool. Admits to recent abx use from admission here for UTI/sepsis. she admits to abdominal discomfort as well as back pain. She does have a history of back pain that she takes 10 mg Volin for as needed. She states that she has been checking her sugars and administering her insulin like she supposed to. She states she came in today because she has not been able to keep anything down. Lipase to Sammi triage Past medical history is significant for COPD on Combivent in home nebulizers, diabetes on Lantus, Humalog, osteoarthritis on chronic pain medications, history of esophageal stricture, GI bleed history, previous skin cancer, history of psoriasis Past surgical history significant for multiple EGDs for previous GI bleed as well as esophageal stricture dilations, previous tubal ligation Social history: Denies any tobacco, alcohol or drug use. 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 Guerra, educational assistant is Dr. Villanueva TRAVEL OUTSIDE OF THE [place] IN LAST 30 DAYS: No - Related Data Allergies/Adverse Reactions: No Known Drug Allergies Allergy (Mild, Verified 10/02/17 13:45) Past Medical History - General Information source: Patient - Social History Smoking Status: Current Some Day Smoker Family History: Reviewed & Not Pertinent Patient has suicidal ideation: No Patient has homicidal ideation: No - Past Medical History Cardiac Medical History: Reports: Hx Hypertension Denies: Hx Congestive Heart Failure, Hx DVT, Hx Heart Attack, Hx Hypercholesterolemia, Hx Pulmonary Embolism Pulmonary Medical History: Reports: Hx Bronchitis, Hx COPD, Hx Pneumonia Neurological Medical History: Reports: Hx Migraine Endocrine Medical History: Reports: Hx Diabetes Mellitus Type 1. Denies: Hx Diabetes Mellitus Type 2, Hx Hyperthyroidism, Hx Hypothyroidism Renal/ Medical History: Denies: Hx Peritoneal Dialysis Malignancy Medical History: Reports: Hx Ovarian Cancer, Hx Skin Cancer GI Medical History: Reports: Hx Gastroesophageal Reflux Disease, Hx Hiatal Hernia, Hx Ulcer. Denies: Hx Cirrhosis, Hx Hepatitis, Hx Pancreatitis Musculoskeltal Medical History: Reports Hx Arthritis, Reports Hx Multiple Sclerosis, Reports Hx Musculoskeletal Deformity, Reports Hx Musculoskeletal Trauma Skin Medical History: Reports Hx Psoriasis Psychiatric Medical History: Reports: Hx Anxiety, Hx Depression Traumatic Medical History: Reports: Hx Fractures - Bilateral humerus Infectious Medical History: Reports: Hx C-Diff. Denies: Hx Hepatitis Past Surgical History: Reports: Hx Genitourinary Surgery - Bladder, Hx Orthopedic Surgery - Right wrist, Hx Tubal Ligation - Immunizations Immunizations up to date: Yes Hx Diphtheria, Pertussis, Tetanus Vaccination: Yes Hx Pneumococcal Vaccination: 06/15/13 Review of Systems - Review of Systems Constitutional: No symptoms reported EENT: No symptoms reported Cardiovascular: No symptoms reported Respiratory: No symptoms reported Gastrointestinal: See HPI Genitourinary: No symptoms reported Musculoskeletal: See HPI Neurological/Psychological: No symptoms reported -: Yes All other systems reviewed and negative Physical Exam - Vital signs Vitals: Temp Pulse Resp BP Pulse Ox 98.6 F 120 H 16 138/98 H 99 10/02/17 14:01 10/02/17 14:01 10/02/17 14:10/02/17 14:10/02/17 14:01 - Notes Notes: PHYSICAL EXAM GENERAL: Alert, interacts well. HEAD: Normocephalic, atraumatic. EYES: Pupils equal, round, and reactive to light. Extraocular movements intact. ENT: Oral mucosa dry, tongue midline. NECK: Full range of motion. Supple. Trachea midline. LUNGS: Clear to auscultation bilaterally, no wheezes, rales, or rhonchi. No respiratory distress. HEART: Regular rate and rhythm. No murmurs, gallops, or rubs. ABDOMEN: Soft, nondistended, nontender. No guarding, rebound, or rigidity.. Bowel sounds present in all 4 quadrants. EXTREMITIES: Moves all 4 extremities spontaneously. No edema, radial and dorsalis pedis pulses 2/4 bilaterally. No cyanosis. NEUROLOGICAL: Alert and oriented x4. Normal speech. PSYCH: Normal affect, normal mood. SKIN: Warm, dry, normal turgor. No rashes or lesions noted. Course - Re-evaluation Re-evalutation: 10/02/17 15:45 Patient is a 61-year-old female is hemodynamically stable, no acute distress and afebrile. Initially tachycardic secondary to dehydration which responded well to IV fluids. Initial glucose read high and on her chemistry was 621 patient received IV fluids and insulin.LFTs are elevated from her baseline without any significant right upper quadrant tenderness. Low clinical suspicion for any appendicitis, colitis. Will send for radiographic quadrant ultrasound. 10/02/17 18:30 Patient is an ultrasound. Her glucose prior to going over there was 266 which she states is within her normal. She has not had any episodes of emesis since her arrival in the department. 10/02/17 19:33 Patient has returned from ultrasound, she has fatty liver disease. At this time patient does not require urgent or emergent evaluation for this. Will discharge her home with instruction to follow-up with Dr. Guerra's office next week to go over her results and ultrasound. Patient agrees with plan. She is declining to stay for another liter of IV saline and requesting to be discharged home. She does have her insulin at home. Discussed with her that since she was not eating she can skip her Humalog she needs to be checking her sugars. Discussed with her that since she was not eating at all not checking her sugars and skipping her Humalog that was why her hyperglycemia happened. Patient states that she understands and will follow up with Dr. White as well as Dr. Guerra. - Vital Signs Vital signs: Temp Pulse Resp BP Pulse Ox 98.6 F 120 H 20 139/79 H 98 10/02/17 14:01 10/02/17 14:01 10/02/17 18:01 10/02/17 18:00 10/02/17 18:01 - Laboratory Result Diagrams: 10/02/17 15:08 10/02/17 15:08 Laboratory results interpreted by me: 10/02/17 10/02/17 10/02/17 14:20 15:08 15:08 MCH 26.2 L RDW 16.4 H Sodium 136.8 L Potassium 3.2 L BUN 2 L Glucose 621 H* POC Glucose Calcium 10.4 H AST 320 H ALT 203 H Alkaline Phosphatase 276 H Urine Glucose (UA) >=500 H Urine Blood SMALL H 10/02/17 18:30 MCH RDW Sodium Potassium BUN Glucose POC Glucose 266 H Calcium AST ALT Alkaline Phosphatase Urine Glucose (UA) Urine Blood - Diagnostic Test Radiology reviewed: Reports reviewed Discharge - Discharge Clinical Impression: Elevated liver enzymes Hyperglycemia due to type 2 diabetes mellitus Qualifiers: Diabetes mellitus senior care insulin use: with terminal block assembler use Qualified Code(s): E11.65 - Type 2 diabetes mellitus with hyperglycemia; Z79.4 - ferry terminal supervisor (current ) use of insulin; Z79.4 - alf (current) use of insulin; Z79.4 - alf (current) use of insulin; Z79.4 - ferry terminal supervisor (current) use of insulin Condition: Good Disposition: HOME, SELF-CARE Instructions: Liver Function Abnormality ([facility]), Hyperglycemia ([facility]) Additional Instructions: You need to followup urgently with your primary care doctor as your blood sugars were dangerously high today. You did not have any evidence of a dangerous condition associated with these blood sugars at this time. However, it is very important that you get your blood sugars under control. Please take all of your medications exactly as directed. You should avoid foods that are high in carbohydrates and sugary foods. Losing weight will also help to better control your blood sugars. Please return to emergency department immediately if you develop weakness, persistent vomiting, confusion, or any other symptoms that are concerning to you.. Please follow-up with Dr. Guerra to go to ultrasound and liver function tests. There is concern that you have fatty liver disease. Forms: Elevated Blood Pressure Referrals: GIUSEPPE WHITE MD [Primary Care Provider] - Follow up tomorrow DEXTER GUERRA MD [ACTIVE STAFF] - Follow up in 3-5 days
[2017-10-02 15:27] LABS: APPEARANCE,URINE CLEAR; BILIRUBIN,URINE NEGATIVE (NEGATIVE); COLOR,URINE COLORLESS; GLUCOSE, URINE >=500 mg/dL (NEGATIVE); KETONES,URINE NEGATIVE (NEGATIVE); LEUKOCYTE ESTERASE,URINE NEGATIVE (NEGATIVE); NITRITE,URINE NEGATIVE (NEGATIVE); PROTEIN,URINE NEGATIVE (NEGATIVE); UROBILINOGEN,URINE NEGATIVE mg/dL (<2.0)
[2017-10-02] MEDS ORDERED: ONDANSETRON HCL INJ/PF 4 MG/2 ML SDV IV ONE (15:40)
[2017-10-02 15:41] LABS: URINE AMPHETAMINES SCREEN NEGATIVE; URINE BARBITURATES SCREEN NEGATIVE; URINE BENZODIAZEPINES SCREEN NEGATIVE; URINE COCAINE SCREEN NEGATIVE; URINE MARIJUANA (THC) SCREEN NEGATIVE; URINE METHADONE SCREEN NEGATIVE; URINE PHENCYCLIDINE SCREEN NEGATIVE
[2017-10-02 15:41] LABS: ALANINE AMINOTRANSFERASE 203 U/L (9-52); ALBUMIN 4.5 g/dL (3.5-5.0); ALKALINE PHOSPHATASE 276 U/L (38-126); ANION GAP 14 (5-19); ASPARTATE AMINO TRANSFERASE 320 U/L (14-36); BILIRUBIN,DIRECT 0.3 mg/dL (0.0-0.4); BILIRUBIN,TOTAL 0.6 mg/dL (0.2-1.3); BLOOD UREA NITROGEN 2 mg/dL (7-20); CALCIUM 10.4 mg/dL (8.4-10.2); CARBON DIOXIDE 25 mmol/L (22-30); CHLORIDE 98 mmol/L (98-107); POTASSIUM 3.2 mmol/L (3.6-5.0); SODIUM 136.8 mmol/L (137-145); TOTAL PROTEIN 7.5 g/dL (6.3-8.2)
[2017-10-02 15:45] LABS: ABSOLUTE BASOPHILS # (AUTO) 0.1 10^3/uL (0.0-0.2); ABSOLUTE EOSINOPHILS # (AUTO) 0.1 10^3/uL (0.0-0.6); ABSOLUTE LYMPHOCYTES (AUTO) 0.9 10^3/uL (0.5-4.7); ABSOLUTE MONOCYTES (AUTO) 0.8 10^3/uL (0.1-1.4); ABSOLUTE NEUT (AUTO) 4.8 10^3/uL (1.7-8.2); BASOPHILS % (AUTO) 0.9 % (0-2); HEMATOCRIT 40.7 % (36.0-47.0); LYMPHOCYTES % (AUTO) 13.5 % (13-45); MEAN CORPUSCULAR HEMOGLOBIN 26.2 pg (27.0-33.4); MONOCYTES % (AUTO) 12.2 % (3-13); PLATELET COUNT 167 10^3/uL (150-450); RED BLOOD COUNT 4.97 10^6/uL (3.72-5.28); RED CELL DISTRIBUTION WIDTH 16.4 % (11.5-14.0); SEGMENTED NEUTROPHILS % (AUTO) 72.4 % (42-78); TOTAL CELLS COUNTED % (AUTO) 100 %; WHITE BLOOD COUNT 6.7 10^3/uL (4.0-10.5)
[2017-10-02 15:51] LABS: GLUCOSE 621 mg/dL (75-110)
[2017-10-02 15:55] LABS: MEAN CORPUSCULAR VOLUME 82 fl (80-97)
[2017-10-02] MEDS ORDERED: INSULIN REG, HUMAN 100 UNIT/ML 3 ML VIAL (PYX) IV ONE (15:56)
[2017-10-02 16:12] LABS: VENOUS BLOOD BASE EXCESS -3.1 mmol/L; VENOUS BLOOD HCO3 22.2 mmol/L (20-32); VENOUS BLOOD PCO2 40.6 mmHg (35-63); VENOUS BLOOD PH 7.36 (7.30-7.42)
[2017-10-02] MEDS ORDERED: LORAZEPAM INJ 2 MG/1 ML VIAL IV ONE (16:16)
[2017-10-02] MEDS ORDERED: POTASSIUM CHLORIDE 10 MEQ TABLET.SA PO ONE (19:08)
[2017-10-02] MEDS ORDERED: NORMAL SALINE 1000 ML 1,000 ML IV PRN (19:09)
--- NOTE | 2017-10-02 19:26 | RADIOLOGY REPORT (SQ) ---
EXAM DESCRIPTION: U/S ABDOMEN LIMITED W/O DOP COMPLETED DATE/TIME: 10/02/2017 7:19 pm REASON FOR STUDY: elevated LFTs, vomiting COMPARISON: None. TECHNIQUE: Dynamic and static grayscale images acquired of the abdomen and recorded on PACS. Additio nal selected color Doppler and spectral images recorded. LIMITATIONS: None. FINDINGS: PANCREAS: No masses. No peripancreatic edema or fluid collections. LIVER: Echotexture is coarse with increased echogenicity consistent with fatty infiltration. LIVER VASCULATURE: Normal directional flow of the main portal vein and hepatic veins. GALLBLADDER: No stones. Normal wall thickness. No pericholecystic fluid. ULTRASOUND-DETECTED CORTES'S SIGN: Negative. INTRAHEPATIC DUCTS AND COMMON DUCT: CBD and intrahepatic ducts normal caliber. No filling defects. INFERIOR VENA CAVA: Normal flow. AORTA: No aneurysm. RIGHT KIDNEY: Normal size. Normal echogenicity. No solid or suspicious masses. No hydronephrosis. No calcifications. PERITONEAL AND RIGHT PLEURAL SPACE: No ascites or effusions. OTHER: No other significant finding. IMPRESSION: FATTY INFILTRATION OF THE LIVER. OTHERWISE NORMAL RIGHT UPPER QUADRANT ULTRASOUND. TECHNICAL DOCUMENTATION: JOB ID: [id number] [email or web address]- All Rights Reserved
[2017-10-02 20:41] VITALS: BP 105/77
== END 2017-10-02 20:38 | disposition home or self-care (01) ==
LOC: ER 13:43
DX: R74.8 Abnormal levels of other serum enzymes (principal); R11.10 Vomiting, unspecified; E11.65 Type 2 diabetes mellitus with hyperglycemia; R19.7 Diarrhea, unspecified; Z79.4 Long term (current) use of insulin; J44.9 Chronic obstructive pulmonary disease, unspecified; F17.200 Nicotine dependence, unspecified, uncomplicated; I10 Essential (primary) hypertension; Z98.51 Tubal ligation status; Z85.43 Personal history of malignant neoplasm of ovary; Z85.828 Personal history of other malignant neoplasm of skin
CPT/HCPCS: 99284; 96361; 96374; 96375; 36415; 82962; 83690; 83735; 85025; 80053; 81001; 80307; 82803; 76705; J2060; J1815; J2405; J7030

== ENCOUNTER 2017-10-29 09:47 | Day surgery (SDC) | payer MEDICAID ==
[~2017-10-29 09:47] MED LIST: KETOROLAC TROMETHAMINE 0.45% 4 DROP/0.4 ML DROPERETTE OD PRN
[2017-10-29] MEDS: CYCLOPENTOLATE 0.2%/PHENYLEPHRINE 1% OPH SOLN 2 ML OD PRN ×3 (10:18→10:38)
[2017-10-29] MEDS: TROPICAMIDE 1% OPH SOLN 3 ML OD PRN ×3 (10:18→10:38)
[2017-10-29] MEDS: TETRACAINE HCL 0.5% OPH SOLN 0.6 ML DROPERETTE OD PRN ×4 (10:18→10:44)
[2017-10-29] MEDS: BESIFLOXACIN HCL 0.6% OPH SUSP 5 ML BOTTLE OD PRN ×4 (10:18→10:59)
[2017-10-29] MEDS ORDERED: MIDAZOLAM 2 MG/2 ML INJ ONE (10:31)
[2017-10-29] MEDS: EPINEPHRINE INJ/PF 1 MG/1 ML AMPULE ONE ×2 (10:50)
[2017-10-29] MEDS: CHONDR SU A NA/HYALUR INTRAOC KIT (SURGICARE) ONE ×2 (10:50)
[2017-10-29] MEDS: LIDOCAINE 1% INJ-PF (10 MG/ML) 30 ML SDV ONE ×2 (10:50)
[2017-10-29] MEDS: TOBRAMYCIN SULFATE/DEXAMETH OPH OINTMENT 3.5 GM ONE ×2 (10:59)
== END 2017-10-29 11:48 | disposition home or self-care (01) ==
LOC: SC 09:47
PROVIDERS: ATTEND Ophthalmology
PROC: 08RJ3JZ Replacement of Right Lens with Synthetic Substitute, Percutaneous Approach (ICD-10-PCS; principal; 2017-10-29 10:45)
DX: H25.11 Age-related nuclear cataract, right eye (principal); M19.90 Unspecified osteoarthritis, unspecified site; J44.9 Chronic obstructive pulmonary disease, unspecified; E11.9 Type 2 diabetes mellitus without complications; K21.9 Gastro-esophageal reflux disease without esophagitis; K44.9 Diaphragmatic hernia without obstruction or gangrene; F17.210 Nicotine dependence, cigarettes, uncomplicated; Z79.4 Long term (current) use of insulin; Z79.899 Other long term (current) drug therapy
CPT/HCPCS: 82962; 66984; V2630; J2250; J3490 ×5; J0171; 142

== ENCOUNTER 2017-11-12 08:53 | Day surgery (SDC) | payer MEDICAID ==
[~2017-11-12 08:53] MED LIST changes: +CHONDR SU A NA/HYALUR INTRAOC KIT (SURGICARE) ONE; +EPINEPHRINE INJ/PF 1 MG/1 ML AMPULE ONE; -KETOROLAC TROMETHAMINE 0.45% 4 DROP/0.4 ML DROPERETTE OD PRN; +KETOROLAC TROMETHAMINE 0.45% 4 DROP/0.4 ML DROPERETTE OS PRN; +LIDOCAINE 1% INJ-PF (10 MG/ML) 30 ML SDV ONE; +TOBRAMYCIN SULFATE/DEXAMETH OPH OINTMENT 3.5 GM ONE
[2017-11-12] MEDS: CYCLOPENTOLATE 0.2%/PHENYLEPHRINE 1% OPH SOLN 2 ML OS PRN ×3 (09:12→09:25)
[2017-11-12] MEDS: TETRACAINE HCL 0.5% OPH SOLN 0.6 ML DROPERETTE OS PRN ×3 (09:12→09:39)
[2017-11-12] MEDS: BESIFLOXACIN HCL 0.6% OPH SUSP 5 ML BOTTLE OS PRN ×3 (09:12→10:00)
[2017-11-12] MEDS: TROPICAMIDE 1% OPH SOLN 3 ML OS PRN ×3 (09:12→09:25)
[2017-11-12] MEDS ORDERED: MIDAZOLAM 2 MG/2 ML INJ ONE ×2 (09:26→09:49)
[2017-11-12] MEDS ORDERED: ONDANSETRON HCL INJ/PF 4 MG/2 ML SDV ONE (09:27)
[2017-11-12] MEDS ORDERED: FENTANYL CITRATE INJ/PF 100 MCG/2 ML AMPUL ONE (09:27)
== END 2017-11-12 10:40 | disposition home or self-care (01) ==
LOC: SC 08:53
PROVIDERS: ATTEND Ophthalmology
PROC: 08RK3JZ Replacement of Left Lens with Synthetic Substitute, Percutaneous Approach (ICD-10-PCS; principal; 2017-11-12 09:45)
DX: H25.12 Age-related nuclear cataract, left eye (principal); Z98.41 Cataract extraction status, right eye; J44.9 Chronic obstructive pulmonary disease, unspecified; E11.9 Type 2 diabetes mellitus without complications; K21.9 Gastro-esophageal reflux disease without esophagitis; M19.90 Unspecified osteoarthritis, unspecified site; Z79.899 Other long term (current) drug therapy; Z79.4 Long term (current) use of insulin
CPT/HCPCS: 66984; 82962; V2630; J2250; J3490 ×5; J0171; J3010; J2405; 142

== ENCOUNTER 2018-01-01 14:42 | Emergency (ER) | payer MEDICAID ==
[2018-01-01 15:11] VITALS: BP 125/89
[2018-01-01] MEDS ORDERED: NORMAL SALINE 1000 ML 1,000 ML IV ONE ×2 (17:08→19:46)
--- NOTE | 2018-01-01 17:13 | ER Document Report ---
ED Medical Screen (RME) - General Chief Complaint: High Blood Sugar Stated Complaint: BLOOD SUGAR ISSUES Time Seen by Provider: 01/01/18 16:56 Notes: Patient presents with several complaints. She states that since Friday she has been tired lack of energy and has been having multiple episodes of nonbloody nonbilious vomiting and multiple episodes of diarrhea. Patient states that her blood sugar normally runs 200s but has been in the 500s over this last week. This is the main reason that prompted her to come to the emergency department. She denies any changes in her medications and she takes Lantus 3 times a day. She denies being on any antibiotics recently. She states that she had diarrhea 4 times and was not able to make it to the bathroom yesterday. She does have a history of C. difficile but has not been hospitalized since approximately July of last year. At that time she states she was was transferred to [facility]. She also states she has been having upper respiratory cough and congestion. She denies being on any blood thinners. I have greeted and performed a rapid initial assessment of this patient. A comprehensive ED assessment and evaluation of the patient, analysis of test results and completion of the medical decision making process will be conducted by additional ED providers. PHYSICAL EXAMINATION: GENERAL: Frail-appearing female in no acute distress HEAD: Atraumatic, normocephalic. EYES: Pupils equal round extraocular movements intact, conjunctiva are normal. ENT: Nares patent, oral mucous membranes dry NECK: Normal range of motion LUNGS: No respiratory distress CV: Tachycardia, regular rhythm with no murmurs rubs Musculoskeletal: Normal range of motion NEUROLOGICAL: Normal speech, normal gait. PSYCH: Normal mood, normal affect. SKIN: Warm, Dry, normal turgor, no rashes or lesions noted. TRAVEL OUTSIDE OF THE [place] IN LAST 30 DAYS: No - Related Data Allergies/Adverse Reactions: No Known Drug Allergies Allergy (Mild, Verified 01/01/18 16:49) Home Medications: carafate, prevacid, humalog, lantus, potassium, combivent. Enbrel every . PRN: phenergan, Past Medical History - Social History Chew tobacco use (# tins/day): No Frequency of alcohol use: None Drug Abuse: None Family history: None - pt adopted - Past Medical History Cardiac Medical History: Reports: Hx Hypertension Denies: Hx Congestive Heart Failure, Hx DVT, Hx Heart Attack, Hx Hypercholesterolemia, Hx Pulmonary Embolism Pulmonary Medical History: Reports: Hx Bronchitis, Hx COPD, Hx Pneumonia Denies: Hx Asthma Neurological Medical History: Reports: Hx Migraine. Denies: Hx Cerebrovascular Accident, Hx Seizures Endocrine Medical History: Reports: Hx Diabetes Mellitus Type 1. Denies: Hx Diabetes Mellitus Type 2, Hx Hyperthyroidism, Hx Hypothyroidism Renal/ Medical History: Denies: Hx Peritoneal Dialysis Malignancy Medical History: Reports: Hx Ovarian Cancer, Hx Skin Cancer GI Medical History: Reports: Hx Gastroesophageal Reflux Disease, Hx Hiatal Hernia, Hx Ulcer. Denies: Hx Cirrhosis, Hx Hepatitis, Hx Pancreatitis Musculoskeltal Medical History: Reports Hx Arthritis, Reports Hx Multiple Sclerosis, Reports Hx Musculoskeletal Deformity, Reports Hx Musculoskeletal Trauma Skin Medical History: Reports Hx Psoriasis Psychiatric Medical History: Reports: Hx Anxiety, Hx Depression Traumatic Medical History: Reports: Hx Fractures - Bilateral humerus Infectious Medical History: Reports: Hx C-Diff. Denies: Hx Hepatitis Past Surgical History: Reports: Hx Genitourinary Surgery - Bladder, Hx Orthopedic Surgery - Right wrist, Hx Tubal Ligation. Denies: Hx Hysterectomy, Hx Mastectomy, Hx Open Heart Surgery, Hx Pacemaker - Immunizations Immunizations up to date: Yes Hx Diphtheria, Pertussis, Tetanus Vaccination: Yes Physical Exam - Vital signs Vitals: Temp Pulse Resp BP Pulse Ox 98.2 F 127 H 18 125/89 H 99 01/01/18 15:08 01/01/18 15:08 01/01/18 15:08 01/01/18 15:08 01/01/18 15:08 Course - Vital Signs Vital signs: Temp Pulse Resp BP Pulse Ox 98.2 F 127 H 18 125/89 H 99 01/01/18 15:08 01/01/18 15:08 01/01/18 15:08 01/01/18 15:08 01/01/18 15:08
[2018-01-01 17:59] LABS: ABSOLUTE BASOPHILS # (AUTO) 0.1 10^3/uL (0.0-0.2); ABSOLUTE EOSINOPHILS # (AUTO) 0.1 10^3/uL (0.0-0.6); ABSOLUTE LYMPHOCYTES (AUTO) 2.4 10^3/uL (0.5-4.7); ABSOLUTE MONOCYTES (AUTO) 1.2 10^3/uL (0.1-1.4); ABSOLUTE NEUT (AUTO) 7.9 10^3/uL (1.7-8.2); BASOPHILS % (AUTO) 1.2 % (0-2); EOSINOPHILS % (AUTO) 0.5 % (0-6); HEMATOCRIT 48.2 % (36.0-47.0); HEMOGLOBIN 15.3 g/dL (12.0-15.5); LYMPHOCYTES % (AUTO) 20.7 % (13-45); MEAN CORPUSCULAR HEMOGLOBIN 26.4 pg (27.0-33.4); MEAN CORPUSCULAR HGB CONC 31.8 g/dL (32.0-36.0); MEAN CORPUSCULAR VOLUME 83 fl (80-97); MONOCYTES % (AUTO) 10.4 % (3-13); PLATELET COUNT 345 10^3/uL (150-450); RED BLOOD COUNT 5.81 10^6/uL (3.72-5.28); RED CELL DISTRIBUTION WIDTH 15.9 % (11.5-14.0); SEGMENTED NEUTROPHILS % (AUTO) 67.2 % (42-78); TOTAL CELLS COUNTED % (AUTO) 100 %; WHITE BLOOD COUNT 11.8 10^3/uL (4.0-10.5)
[2018-01-01] MEDS ORDERED: PROMETHAZINE HCL INJ 25 MG/1 ML VIAL IV ONE (18:06)
--- NOTE | 2018-01-01 18:10 | RADIOLOGY REPORT (SQ) ---
EXAM DESCRIPTION: CHEST SINGLE VIEW COMPLETED DATE/TIME: 01/01/2018 6:03 pm REASON FOR STUDY: cough COMPARISON: 09/01/2016 EXAM PARAMETERS: NUMBER OF VIEWS: One view. TECHNIQUE: Single frontal radiographic view of the chest acquired. RADIATION DOSE: NA LIMITATIONS: None. FINDINGS: LUNGS AND PLEURA: No opacities, masses or pneumothorax. No pleural effusion. MEDIASTINUM AND HILAR STRUCTURES: Large hiatal hernia. No other mediastinal masses. HEART AND VASCULAR STRUCTURES: Heart normal in size. Normal vasculature. BONES: Old rib fractures on the left. HARDWARE: None in the chest. OTHER: No other significant finding. IMPRESSION: Large hiatal hernia. There is no acute cardiopulmonary disease. TECHNICAL DOCUMENTATION: JOB ID: [id number] [employer]- All Rights Reserved Reading location - IP/workstation name: [email or web address]
[2018-01-01 18:51] LABS: ALANINE AMINOTRANSFERASE 51 U/L (9-52); ALBUMIN 4.9 g/dL (3.5-5.0); ALKALINE PHOSPHATASE 223 U/L (38-126); ANION GAP 19 (5-19); ASPARTATE AMINO TRANSFERASE 43 U/L (14-36); BILIRUBIN,DIRECT 0.5 mg/dL (0.0-0.4); BILIRUBIN,TOTAL 1.1 mg/dL (0.2-1.3); BLOOD UREA NITROGEN 20 mg/dL (7-20); CALCIUM 10.7 mg/dL (8.4-10.2); CARBON DIOXIDE 20 mmol/L (22-30); CHLORIDE 98 mmol/L (98-107); SODIUM 136.6 mmol/L (137-145); TOTAL PROTEIN 8.4 g/dL (6.3-8.2)
[2018-01-01 19:27] LABS: GLUCOSE 493 mg/dL (75-110)
[2018-01-01] MEDS ORDERED: ALPRAZOLAM 0.5 MG TABLET PO ONE (19:45)
--- NOTE | 2018-01-01 19:48 | ER Document Report ---
ED General <MÓNICA CEVALLOS - Last Filed: 01/01/18 23:16> - General Mode of Arrival: Ambulatory Information source: Patient TRAVEL OUTSIDE OF THE [place] IN LAST 30 DAYS: No - Related Data Home Medications: carafate, prevacid, humalog, lantus, potassium, combivent. Enbrel every . PRN: phenergan, <ROOPA EVANS - Last Filed: 01/04/18 14:10> - General Chief Complaint: High Blood Sugar Stated Complaint: BLOOD SUGAR ISSUES Time Seen by Provider: 01/01/18 16:56 Notes: Patient is a 60-year-old female with a history of C. difficile (July 2017) hypertension, COPD, type 1 diabetes, anxiety and depression presents to the emergency department complaining of multiple symptoms including nausea, vomiting , diarrhea, fatigue, cough, congestion, and high blood sugar. Patient states that the main reason she presented to the emergency department was due to her high blood sugar being in the 500s when it is normally around the 200s. At bedside patient states that she had diarrhea 4 times yesterday but has not had a bowel movement since. At bedside patient states she mainly would like some medication for her anxiety and if she is unable to receive some she would like to go home. Patient currently takes Xanax (1 mg, 4 times a day) and Hydrocodone (10 mg, 4 times a day). (ROOPA EVANS) - Related Data Allergies/Adverse Reactions: No Known Drug Allergies Allergy (Mild, Verified 01/03/18 18:59) Past Medical History - General Information source: Patient - Social History Smoking Status: Current Every Day Smoker Chew tobacco use (# tins/day): No Frequency of alcohol use: None Drug Abuse: None Family History: Reviewed & Not Pertinent Patient has suicidal ideation: No Patient has homicidal ideation: No - Past Medical History Cardiac Medical History: Reports: Hx Hypertension Pulmonary Medical History: Reports: Hx Bronchitis, Hx COPD, Hx Pneumonia Neurological Medical History: Reports: Hx Migraine Endocrine Medical History: Reports: Hx Diabetes Mellitus Type 1 Malignancy Medical History: Reports: Hx Ovarian Cancer, Hx Skin Cancer GI Medical History: Reports: Hx Gastroesophageal Reflux Disease, Hx Hiatal Hernia, Hx Ulcer Musculoskeltal Medical History: Reports Hx Arthritis, Reports Hx Multiple Sclerosis, Reports Hx Musculoskeletal Deformity, Reports Hx Musculoskeletal Trauma Skin Medical History: Reports Hx Psoriasis Psychiatric Medical History: Reports: Hx Anxiety, Hx Depression Traumatic Medical History: Reports: Hx Fractures - Bilateral humerus Infectious Medical History: Reports: Hx C-Diff Past Surgical History: Reports: Hx Genitourinary Surgery - Bladder, Hx Orthopedic Surgery - Right wrist, Hx Tubal Ligation - Immunizations Immunizations up to date: Yes Hx Diphtheria, Pertussis, Tetanus Vaccination: Yes Hx Pneumococcal Vaccination: 06/15/13 <NATHANDARIOJAYMIE - Last Filed: 01/04/18 14:10> Review of Systems - Review of Systems Constitutional: See HPI EENT: No symptoms reported Cardiovascular: No symptoms reported Respiratory: See HPI, Cough Gastrointestinal: See HPI, Diarrhea, Nausea, Vomiting Genitourinary: No symptoms reported Female Genitourinary: No symptoms reported Musculoskeletal: No symptoms reported Skin: No symptoms reported Hematologic/Lymphatic: No symptoms reported Neurological/Psychological: No symptoms reported -: Yes All other systems reviewed and negative <NATHAN,DARIOJAYMIE - Last Filed: 01/04/18 14:10> Physical Exam - General General appearance: Other - Frail appearing In distress: None - HEENT Head: Normocephalic, Atraumatic Eyes: Normal Conjunctiva: Normal Extraocular movements intact: Yes Pupils: PERRL Neck: Normal - Respiratory Respiratory status: No respiratory distress Chest status: Nontender Breath sounds: Wheezing Chest palpation: Normal - Cardiovascular Rhythm: Tachycardia Heart sounds: Normal auscultation Murmur: No Friction rub: No Gallop: None auscultated - Abdominal Inspection: Normal Distension: No distension Bowel sounds: Hyperactive Tenderness: Nontender Organomegaly: No organomegaly - Back Back: Normal - Extremities General upper extremity: Normal ROM General lower extremity: Normal ROM. No: Edema - Neurological Neuro grossly intact: Yes Cognition: Normal Orientation: AAOx4 Zullinger Coma Scale Eye Opening: Spontaneous Jose Roberto Coma Scale Verbal: Oriented Zullinger Coma Scale Motor: Obeys Commands Zullinger Coma Scale Total: 15 Speech: Normal - Psychological Associated symptoms: Normal affect, Normal mood - Skin Skin Temperature: Warm Skin Moisture: Dry Skin Color: Normal <NATHAN,DARIOJAYMIE - Last Filed: 01/04/18 14:10> - Vital signs Vitals: Temp Pulse Resp BP Pulse Ox 98.2 F 127 H 18 125/89 H 99 01/01/18 15:08 01/01/18 15:08 01/01/18 15:08 01/01/18 15:08 01/01/18 15:08 Course - Laboratory Result Diagrams: 01/01/18 17:35 01/01/18 17:35 - EKG Interpretation by Me EKG shows normal: Sinus rhythm, [place], Intervals, QRS Complexes, ST-T Waves Rate: Tachycardia - 118 <MÓNICA CEVALLOS - Last Filed: 01/01/18 23:16> - Laboratory Result Diagrams: 01/01/18 17:35 01/01/18 17:35 <ROOPA EVANS - Last Filed: 01/04/18 14:10> - Re-evaluation Re-evalutation: 01/01/18 21:14 The PCT just informed me that the patient had her daughter come pick her up. She allow the PCT did do an Accu-Chek, then had her IV removed. All this was done and the patient was gone before I was informed. Patient had threatened to leave earlier if she was not given anxiety medication. (MÓNICA CEVALLOS) - Vital Signs Vital signs: Temp Pulse Resp BP Pulse Ox 98.2 F 127 H 16 125/89 H 99 01/01/18 15:08 01/01/18 15:08 01/01/18 20:30 01/01/18 15:08 01/01/18 20:30 - Laboratory Laboratory results interpreted by me: 01/01/18 01/01/18 01/01/18 17:35 17:35 17:39 WBC 11.8 H RBC 5.81 H Hct 48.2 H MCH 26.4 L MCHC 31.8 L RDW 15.9 H Sodium 136.6 L Carbon Dioxide 20 L Glucose 493 H* POC Glucose 429 H* Calcium 10.7 H Direct Bilirubin 0.5 H AST 43 H Alkaline Phosphatase 223 H Total Protein 8.4 H 01/01/18 21:10 WBC RBC Hct MCH MCHC RDW Sodium Carbon Dioxide Glucose POC Glucose 339 H Calcium Direct Bilirubin AST Alkaline Phosphatase Total Protein Discharge <MÓNICA CEVALLOS - Last Filed: 01/01/18 23:16> <ROOPA EVANS - Last Filed: 01/04/18 14:10> - Discharge Clinical Impression: Nausea, vomiting and diarrhea, Dehydration Hyperglycemia due to type 2 diabetes mellitus Qualifiers: Diabetes mellitus longwall foreman insulin use: unspecified longwall foreman insulin use status Qualified Code(s): E11.65 - Type 2 diabetes mellitus with hyperglycemia Anxiety disorder Qualifiers: Anxiety disorder type: unspecified anxiety disorder Qualified Code(s): F41.9 - Anxiety disorder, unspecified Condition: Stable Disposition: ELOPED Referrals: GIUSEPPE WHITE MD [Primary Care Provider] - Follow up as needed Scribe Attestation: 01/01/18 23:16 I personally performed the services described in the documentation, reviewed and edited the documentation which was dictated to the scribe in my presence, and it accurately records my words and actions. (MÓNICA CEVALLOS) Scribe Documentation - Scribe Written by Carlos:: Carlos Yu, 01/01/2018 19:56 acting as scribe for :: Kenia <ROOPA EVANS - Last Filed: 01/04/18 14:10>
--- NOTE | 2018-01-01 23:25 | EKG REPORT ---
SEVERITY:- OTHERWISE NORMAL ECG - SINUS TACHYCARDIA : Confirmed by: Camille Frazier 01-Jan-2018 23:24:40
== END 2018-01-01 21:13 | disposition left against medical advice (07) ==
LOC: ER 14:42
DX: E11.65 Type 2 diabetes mellitus with hyperglycemia (principal); R11.2 Nausea with vomiting, unspecified; R19.7 Diarrhea, unspecified; E86.0 Dehydration; F41.9 Anxiety disorder, unspecified; F17.200 Nicotine dependence, unspecified, uncomplicated; J44.9 Chronic obstructive pulmonary disease, unspecified; I10 Essential (primary) hypertension; Z85.828 Personal history of other malignant neoplasm of skin; Z85.43 Personal history of malignant neoplasm of ovary; Z98.51 Tubal ligation status
CPT/HCPCS: 93005; 99285; 96361; 96374; 36415; 82962; 83735; 85025; 80053; 84484; 71045; 93010; J3490; J2550; J7030

== ENCOUNTER 2018-01-03 18:58 | Inpatient (IN) | payer MEDICAID ==
[2018-01-03 20:17] LABS: ABSOLUTE BASOPHILS # (AUTO) 0.1 10^3/uL (0.0-0.2); ABSOLUTE EOSINOPHILS # (AUTO) 0.2 10^3/uL (0.0-0.6); ABSOLUTE LYMPHOCYTES (AUTO) 2.7 10^3/uL (0.5-4.7); ABSOLUTE MONOCYTES (AUTO) 1.1 10^3/uL (0.1-1.4); ABSOLUTE NEUT (AUTO) 5.4 10^3/uL (1.7-8.2); BASOPHILS % (AUTO) 1.1 % (0-2); EOSINOPHILS % (AUTO) 1.6 % (0-6); HEMATOCRIT 44.3 % (36.0-47.0); HEMOGLOBIN 14.2 g/dL (12.0-15.5); LYMPHOCYTES % (AUTO) 28.3 % (13-45); MEAN CORPUSCULAR HEMOGLOBIN 26.8 pg (27.0-33.4); MEAN CORPUSCULAR HGB CONC 32.1 g/dL (32.0-36.0); MEAN CORPUSCULAR VOLUME 84 fl (80-97); MONOCYTES % (AUTO) 11.5 % (3-13); PLATELET COUNT 276 10^3/uL (150-450); RED CELL DISTRIBUTION WIDTH 15.5 % (11.5-14.0); SEGMENTED NEUTROPHILS % (AUTO) 57.5 % (42-78); TOTAL CELLS COUNTED % (AUTO) 100 %; WHITE BLOOD COUNT 9.4 10^3/uL (4.0-10.5)
[2018-01-03 20:18] LABS: ALANINE AMINOTRANSFERASE 73 U/L (9-52); ALBUMIN 4.3 g/dL (3.5-5.0); ALKALINE PHOSPHATASE 200 U/L (38-126); ANION GAP 19 (5-19); ASPARTATE AMINO TRANSFERASE 59 U/L (14-36); BILIRUBIN,DIRECT 0.5 mg/dL (0.0-0.4); BILIRUBIN,TOTAL 0.6 mg/dL (0.2-1.3); BLOOD UREA NITROGEN 17 mg/dL (7-20); CALCIUM 10.1 mg/dL (8.4-10.2); CARBON DIOXIDE 23 mmol/L (22-30); CHLORIDE 99 mmol/L (98-107); POTASSIUM 3.3 mmol/L (3.6-5.0); SODIUM 140.6 mmol/L (137-145); TOTAL PROTEIN 7.3 g/dL (6.3-8.2)
[2018-01-03 20:36] LABS: GLUCOSE 575 mg/dL (75-110)
--- NOTE | 2018-01-03 20:45 | ER Document Report ---
ED GI/ - General Mode of Arrival: Ambulatory Information source: Patient TRAVEL OUTSIDE OF THE [place] IN LAST 30 DAYS: No <VIV WALLACE - Last Filed: 01/03/18 22:46> <CHARLY MOBLEY - Last Filed: 01/12/18 07:45> - General Chief Complaint: Abdominal Pain Stated Complaint: ABDOMINAL PAIN, DIARRHEA Time Seen by Provider: 01/03/18 19:40 Notes: Patient is a 62-year-old female who presents to the emergency department today with complaints of abdominal pain. Patient has had several bouts of C. difficile in the past and she states her symptoms today feel similar to her C. difficile infections in the past. Patient states that her last bout of C. difficile was in July. Patient also complains of tarry black stool. Patient denies any vomiting. (VIV WALLACE) - Related Data Allergies/Adverse Reactions: No Known Drug Allergies Allergy (Mild, Verified 01/03/18 18:59) Past Medical History - Social History Smoking Status: Current Every Day Smoker Cigarette use (# per day): Yes Chew tobacco use (# tins/day): No Frequency of alcohol use: None Drug Abuse: None Family History: Reviewed & Not Pertinent Patient has suicidal ideation: No Patient has homicidal ideation: No - Past Medical History Cardiac Medical History: Reports: Hx Hypertension Pulmonary Medical History: Reports: Hx Bronchitis, Hx COPD, Hx Pneumonia Neurological Medical History: Reports: Hx Migraine Endocrine Medical History: Reports: Hx Diabetes Mellitus Type 1 Malignancy Medical History: Reports: Hx Ovarian Cancer, Hx Skin Cancer GI Medical History: Reports: Hx Gastroesophageal Reflux Disease, Hx Hiatal Hernia, Hx Ulcer Musculoskeltal Medical History: Reports Hx Arthritis, Reports Hx Multiple Sclerosis, Reports Hx Musculoskeletal Deformity, Reports Hx Musculoskeletal Trauma Skin Medical History: Reports Hx Psoriasis Psychiatric Medical History: Reports: Hx Anxiety, Hx Depression Traumatic Medical History: Reports: Hx Fractures - Bilateral humerus Infectious Medical History: Reports: Hx C-Diff Past Surgical History: Reports: Hx Genitourinary Surgery - Bladder, Hx Orthopedic Surgery - Right wrist, Hx Tubal Ligation - Immunizations Immunizations up to date: Yes Hx Diphtheria, Pertussis, Tetanus Vaccination: Yes Hx Pneumococcal Vaccination: 06/15/13 <VIV WALLACE - Last Filed: 01/03/18 22:46> Review of Systems - Review of Systems Constitutional: No symptoms reported EENT: No symptoms reported Cardiovascular: No symptoms reported Respiratory: No symptoms reported Gastrointestinal: See HPI, Abdominal pain, Diarrhea. denies: Vomiting Genitourinary: No symptoms reported Female Genitourinary: No symptoms reported Musculoskeletal: No symptoms reported Skin: No symptoms reported Hematologic/Lymphatic: No symptoms reported Neurological/Psychological: No symptoms reported -: Yes All other systems reviewed and negative <VIV WALLACE - Last Filed: 01/03/18 22:46> Physical Exam <VIV WALLACE - Last Filed: 01/03/18 22:46> <CHARLY MOBLEY - Last Filed: 01/12/18 07:45> - Vital signs Vitals: Temp Pulse Resp BP Pulse Ox 97.8 F 117 H 16 79/49 L 98 01/03/18 19:08 01/03/18 19:08 01/03/18 19:08 01/03/18 19:08 01/03/18 19:08 - Notes Notes: Physical Exam: General: Alert, appears chronically ill. HEENT: Normocephalic. Atraumatic. PERRL. Extraocular movements intact. Oropharynx clear. Neck: Supple. Non-tender. Respiratory: No respiratory distress. Clear and equal breath sounds bilaterally. Cardiovascular: Regular rate and rhythm. Abdominal: Diffuse tenderness with palpation. No distension. Normal Bowel Sounds. Back: Non-tender. No deformity or step off. Extremities: Moves all four extremities. Upper extremities: Normal inspection. Normal ROM. Lower extremities: Normal inspection. No edema. Normal ROM. Neurological: Normal cognition. AAOx4. Normal speech. Psychological: Normal affect. Normal Mood. Skin: Warm. Dry. Normal color. (VIV WALLACE) Course - Laboratory Result Diagrams: 01/03/18 19:23 01/03/18 19:23 <VIV WALLACE - Last Filed: 01/03/18 22:46> - Laboratory Result Diagrams: 01/09/18 04:48 01/09/18 04:48 <CHARLY MOBLEY - Last Filed: 01/12/18 07:45> - Re-evaluation Re-evalutation: 01/03/18 21:57 Patient found to be Hemoccult positive stool but with normal hemoglobin. She also has diffuse abdominal pain but CT abdomen pelvis shows no acute abnormalities. She is found to be C. difficile positive. Discussed case with Dr. Vila, advised to provide 250 mg of vancomycin orally. Patient will be admitted at this time (CHARLY MOBLEY) - Vital Signs Vital signs: Temp Pulse Resp BP Pulse Ox 97.4 F 79 12 103/63 97 01/09/18 10:48 01/09/18 10:48 01/09/18 10:48 01/09/18 10:48 01/09/18 10:48 - Laboratory Laboratory results interpreted by me: 01/03/18 01/03/18 01/03/18 19:23 19:23 19:51 RBC 5.30 H MCH 26.8 L RDW 15.5 H Potassium 3.3 L Est GFR (Non-Af Amer) 53 L Glucose 575 H* POC Glucose 519 H* Direct Bilirubin 0.5 H AST 59 H ALT 73 H Alkaline Phosphatase 200 H Discharge <VIV WALLACE - Last Filed: 01/03/18 22:46> - Discharge Admitting Provider: Julito Unit Admitted: Medical Floor <CHARLY MOBLEY - Last Filed: 01/12/18 07:45> - Discharge Clinical Impression: Clostridium difficile diarrhea, Dehydration Condition: Stable Disposition: ADMITTED INPATIENT Scribe Attestation: 01/12/18 07:45 I personally performed the services described in the documentation, reviewed and edited the documentation which was dictated to the scribe in my presence, and it accurately records my words and actions. (CHARLY MOBLEY) Scribe Documentation - Scribe Written by Carlos:: Carlos John, 01/03/2018 [id number] acting as scribe for :: Candelario <VIV WALLACE - Last Filed: 01/03/18 22:46>
[2018-01-03] MEDS ORDERED: FENTANYL CITRATE INJ/PF 100 MCG/2 ML AMPUL IV ONE ×2 (20:46→22:22)
[2018-01-03] MEDS ORDERED: RINGERS SOLUTION,LACTATED 1,000 ML IV ONE (20:47)
--- NOTE | 2018-01-03 21:32 | RADIOLOGY REPORT (SQ) ---
EXAM DESCRIPTION: CT ABD/PELVIS WITH IV ONLY COMPLETED DATE/TIME: 01/03/2018 9:14 pm REASON FOR STUDY: diffuse abd pain COMPARISON: 2017 TECHNIQUE: CT scan of the abdomen and pelvis performed using helical scanning technique with dynamic intravenous contrast injection. No oral contrast. Images reviewed with lung, soft tissue, and bone windows. Reconstructed coronal and sagittal MPR images reviewed. Delayed images for evaluation of the urinary system also acquired. All images stored on PACS. All CT scanners at this facility use dose modulation, iterative reconstruction, and/or weight based d osing when appropriate to reduce radiation dose to as low as reasonably achievable (ALARA). [facility]: Dose Right [facility]: CareDose [facility]: Dose Right [facility]: Teradose 4D [facility]: [employer] CONTRAST TYPE AND DOSE: contrast/concentration: Isovue 370.00 mg/ml; Total Contrast Delivered: 56.0 ml; Total Saline Delivered: 61.1 ml RENAL FUNCTION: Creatinine 1.1 RADIATION DOSE: CT Rad equipment meets quality standard of care and radiation dose reduction techniq ues were employed. CTDIvol: 5.0 - 5.8 mGy. DLP: 586 mGy-cm.. LIMITATIONS: None. FINDINGS: LOWER CHEST: Clear lungs. Most of the stomach is intrathoracic, organo-axial volvulus. N o evidence of gastric outlet obstruction. LIVER: Fatty. No focal lesions. SPLEEN: Small suspected cyst in the inferior pole, stable. PANCREAS: No masses. No significant calcifications. No adjacent inflammation or peripancreatic fluid collections. Pancreatic duct not dilated. GALLBLADDER: No identified stones by CT criteria. No inflammatory changes to suggest cholecystitis. ADRENAL GLANDS: No significant masses or asymmetry. RIGHT KIDNEY AND URETER: No solid masses. No significant calcification. No hydronephrosis or hydroure ter. LEFT KIDNEY AND URETER: No solid masses. No significant calcification. No hydronephrosis or hydrouret er. AORTA AND VESSELS: No aneurysm. No dissection. Renal arteries, SMA, celiac without stenosis. No veno us clot. RETROPERITONEUM: No retroperitoneal adenopathy, hemorrhage or masses. BOWEL AND PERITONEAL CAVITY: No masses or inflammatory changes. No free fluid or peritoneal masses. APPENDIX: Not visualized. PELVIS: No mass. No free fluid. Normal bladder. ABDOMINAL WALL: No masses. No hernias. BONES: Chronic L2 compression fracture. OTHER: No other significant finding. IMPRESSION: 1. No acute abdominopelvic abnormality. 2. Chronic changes include intrathoracic stomac h and fatty liver. No evidence of bowel or urinary obstruction. No acute inflammatory process. TECHNICAL DOCUMENTATION: JOB ID: [id number] Quality ID # [id number]: Final reports with documentation of one or more dose reduction techniques (e.g., Au tomated exposure control, adjustment of the mA and/or kV according to patient size, use of iterative reconstruction technique) 2010 [employer]- All Rights Reserved Reading location - IP/workstation name: [email or web address]
[2018-01-03] MEDS ORDERED: VANCOMYCIN HCL INJ 500 MG VIAL PO ONE (21:56)
[2018-01-03] MEDS ORDERED: NORMAL SALINE 1000 ML 1,000 ML IV ONE (21:57)
[2018-01-03] MEDS ORDERED: ACETAMINOPHEN 325 MG TABLET PO PRN (22:03)
[2018-01-03] MEDS ORDERED: PROMETHAZINE HCL INJ 25 MG/1 ML VIAL IV PRN (22:03)
[2018-01-03] MEDS ORDERED: ALBUTEROL SULFATE 0.083% NEB 2.5 MG/3 ML AMPUL NEB PRN (22:03)
[2018-01-03] MEDS ORDERED: NORMAL SALINE 1000 ML 1,000 ML IV PRN (22:03)
[2018-01-03] MEDS ORDERED: DIPHENOXYLATE HCL/ATROP SULF 2.5-0.025 MG TABLET PO PRN (22:10)
[2018-01-03] MEDS ORDERED: GLUCAGON,HUMAN RECOMB 1 MG INJ IM PRN (22:11)
[2018-01-03] MEDS ORDERED: DEXTROSE 50%-WATER 25 GM/50 ML DISP.SYRIN IV PRN ×2 (22:11)
[2018-01-03] MEDS ORDERED: DEXTROSE 40% GEL 15 GM TUBE PO PRN ×2 (22:11)
[2018-01-03] MEDS ORDERED: POTASSIUM IODIDE 1 GM/1 ML 30 ML BOTTLE PO ONE (22:13)
[2018-01-03 22:38] LABS: PROTHROMBIN TIME 13.7 SEC (11.4-15.4)
[2018-01-03] MEDS ORDERED: POTASSIUM CHLORIDE 10 MEQ TABLET.SA PO ONE (22:50)
[2018-01-03] MEDS ORDERED: INSULIN DETEMIR 100 UNIT/ML 3 ML PEN SUBCUT ONE (23:48)
[2018-01-04] MEDS: VANCOMYCIN HCL INJ 500 MG VIAL PO SCH ×4 (00:21→18:50)
[2018-01-04] MEDS: INSULIN GLARGINE,HUM.REC.ANLOG 300 UNIT/3 ML INSULN.PEN SUBCUT SCH ×3 (00:26→21:33)
[2018-01-04] MEDS ORDERED: NICOTINE 14 MG/24 HR PATCH.TD24 TD ONE (01:15)
--- NOTE | 2018-01-04 01:51 | PDOC H&P ---
History of Present Illness Patient complains of: Diffuse abdominal pain and profuse diarrhea for about 6 days. History of Present Illness: JAMES MORRIS is a 62 year old female with history of recurrent C. difficile, UGI (post EGD in 07/2017 per patient) and type 1&2 diabetes mellitus was admitted with above-mentioned complaints. The patient presented to the ED on 01/01/2018 complaining of nausea, vomiting and diarrhea. Her blood sugar was 493 so she was treated and discharged home. She returns today complaining of diffuse abdominal "ache" which gets very intense at times and multiple bouts of diarrhea with black stool but no hematochezia for about 6 days. She denies any nausea or vomiting this time and there was no reported fever or chills. She said that she took Excedrin for the pain with no relief. She also complains of decreased urine output for the last several days. She denies any chest pain but complains of feeling short of breath when her abdominal pain worsens. She denies any cough, recent antibiotic use, sick contact or any change in her food intake. She had a colonoscopy about 3 years ago which showed polyps. She said that she has esophageal stricture and that her esophagus has been stretched several times. She usually follows with Dr. Salinas of GI and she has a follow-up appointment with him next month. In the ED, her temperature was 97.8, heart rate 117 (down to 88), respiratory rate 16, blood pressure 79/49 (up to 101/61 after fluid resuscitation) with oxygen saturation of 98% on room air. Her WBC was 9.4 and her hemoglobin was 14.2. Her blood glucose was 575 with anion gap of 19. Her liver enzymes were elevated at she had positive stool occult blood with positive stool for C. difficile. An abdominal CAT scan was done which showed chronic intrathoracic stomach and fatty liver. She received 1 L of normal saline and another liter of LR in addition to 250 mg oral vancomycin 1. Past Medical History Medical History: Other - According to the patient and based on previous records. Cardiac Medical History: Reports: Hypertension Denies: Congestive Heart Failure, DVT, Myocardial Infarction, Hyperlipidema, Pulmonary Embolism Pulmonary Medical History: Reports: Bronchitis, Chronic Obstructive Pulmonary Disease (COPD), Pneumonia Denies: Asthma Neurological Medical History: Reports: Migraine Denies: Seizures Endocrine Medical History: Reports: Diabetes Mellitus Type 1 Denies: Diabetes Mellitus Type 2, Hyperthyroidism, Hypothyroidism Malignancy Medical History: Reports: Ovarian Cancer, Skin Cancer GI Medical History: Reports: Gastroesophageal Reflux Disease, Hiatal Hernia Denies: Cirrhosis, Hepatitis Musculoskeltal Medical History: Reports: Arthritis Skin Medical History: Reports: Psoriasis Psychiatric Medical History: Reports: Depression Hematology: Reports: Anemia Denies: Hemophilia, Sickle Cell Disease Infectious Medical History: Reports: Clostridium Difficile Past Surgical History Past Surgical History: Reports: Orthopedic Surgery - Right wrist, Tubal Ligation , Other - cataract sx bilaterally. Denies: Amputation, Hysterectomy, Mastectomy, Pacemaker Social History Smoking Status: Current Every Day Smoker Cigarettes Packs Per Day: 0.5 - Down to 2 cigarettes a day. She has been smoking for 40 years. Frequency of Alcohol Use: None Hx Recreational Drug Use: No Drugs: None Hx Prescription Drug Abuse: No - Advance Directive Resuscitation Status: Full Code Family History Parental Family History Reviewed: Yes - unknown. she is adopted. Children Family History Reviewed: No Sibling(s) Family History Reviewed.: Yes Medication/Allergy Home Medications: Ammonium Lactate 385 gm TP BID 12/31/16 Clobetasol Propionate [Clobetasol Propionate Cream] 1 applic TP BID 12/31/16 Diphenoxylate HCl/Atropine [Diphenoxylate-Atrop 2.5-0.025] 1 each PO QIDP PRN Etanercept [Enbrel] 50 mg SQ Q7D 12/31/16 Gabapentin [Neurontin 300 mg Capsule] 300 mg PO Q8 12/31/16 Insulin Glargine,Hum.rec.anlog [Lantus Solostar] 45 unit SQ TID 12/31/16 Insulin Lispro [Humalog Insulin (Lispro) 100 unit/mL] 0 unit SUBCUT .SLD SCALE 12/31/16 Promethazine HCl [Phenergan 25 mg Tablet] 1 - 2 tab PO Q6H PRN #10 tablet Potassium Chloride 10 meq PO DAILY #10 capsule.er 08/15/17 Ipratropium/Albuterol Sulfate [Combivent Inhaler] 1 - 2 ahfu IH DAILY 10/23/17 Lansoprazole [Prevacid] 30 mg PO BID 10/23/17 Allergies/Adverse Reactions: No Known Drug Allergies Allergy (Mild, Verified 01/03/18 18:59) Review of Systems ROS unobtainable: Other - Pertinent positives and negatives as detailed in the HPI. Physical Exam Vital Signs: Temp Pulse Resp BP Pulse Ox 97.8 F 117 H 13 101/61 100 01/03/18 19:08 01/03/18 19:08 01/03/18 21:24 01/03/18 21:24 01/03/18 21:24 Intake & Output 01/02/18 01/03/18 01/04/18 06:59 06:59 06:59 Weight 52.2 kg General appearance: PRESENT: no acute distress Head exam: PRESENT: atraumatic, normocephalic Eye exam: PRESENT: PERRLA. ABSENT: nystagmus Mouth exam: PRESENT: moist Neck exam: PRESENT: full ROM. ABSENT: JVD Respiratory exam: PRESENT: decreased breath sounds. ABSENT: crackles, rales, rhonchi, wheezes Cardiovascular exam: PRESENT: RRR, +S1, +S2 Pulses: PRESENT: normal dorsalis pedis pul GI/Abdominal exam: PRESENT: normal bowel sounds, soft, tenderness - diffuse. ABSENT: distended, rebound Rectal exam: PRESENT: deferred Extremities exam: ABSENT: pedal edema Musculoskeletal exam: PRESENT: full ROM Neurological exam: PRESENT: alert, altered, awake. ABSENT: motor sensory deficit Skin exam: PRESENT: dry, warm. ABSENT: erythema, petechiae, rash Results Laboratory Results: 01/03/18 19:23 01/03/18 19:23 01/03/18 01/03/18 01/03/18 19:23 19:23 20:44 WBC 9.4 RBC 5.30 H Hgb 14.2 Hct 44.3 MCV 84 MCH 26.8 L MCHC 32.1 RDW 15.5 H Plt Count 276 Seg Neutrophils % 57.5 Lymphocytes % 28.3 Monocytes % 11.5 Eosinophils % 1.6 Basophils % 1.1 Absolute Neutrophils 5.4 Absolute Lymphocytes 2.7 Absolute Monocytes 1.1 Absolute Eosinophils 0.2 Absolute Basophils 0.1 Sodium 140.6 Potassium 3.3 L Chloride 99 Carbon Dioxide 23 Anion Gap 19 BUN 17 Creatinine 1.06 Est GFR ( Amer) > 60 Est GFR (Non-Af Amer) 53 L Glucose 575 H* Calcium 10.1 Total Bilirubin 0.6 AST 59 H ALT 73 H Alkaline Phosphatase 200 H Total Protein 7.3 Albumin 4.3 Stool Occult Blood POSITIVE EKG Comments: none. Impressions: Abdomen/Pelvis CT 01/03/18 20:46 IMPRESSION: 1. No acute abdominopelvic abnormality. 2. Chronic changes include intrathoracic stomach and fatty liver. No evidence of bowel or urinary obstruction. No acute inflammatory process. Assessment & Plan - Diagnosis (1) Clostridium difficile diarrhea Is this a current diagnosis for this admission?: Yes Plan: The patient apparently has history of recurrent C. difficile colitis. Her abdominal CAT scan was reviewed. She said that she was in a drug trial for C diff treatment about 2 years ago and that the last time she tested positive for C. difficile was in July 2017. But on reviewing her previous labs in this system, the last time she tested positive was in April 2017. She apparently follows with Dr. Salinas and there was discussion regarding fecal transplant. Her last colonoscopy was 3 years ago. We will continue oral vancomycin given history of recurrent C. difficile. She will need further evaluation by ID and/ or GI regarding referral for fecal transplant. (2) Hypotension Qualifiers: Hypotension type: unspecified hypotension type Qualified Code(s): I95.9 - Hypotension, unspecified Is this a current diagnosis for this admission?: Yes Plan: Secondary to hypovolemia due to profuse diarrhea, improved. We will continue IV hydration and oral Vancomycin. UA is still pending. (3) Diabetes mellitus Qualifiers: Diabetes mellitus type: other specified (including CHAO) Diabetes mellitus nursing home insulin use: with nursing home use Is this a current diagnosis for this admission?: Yes Plan: Type 1 and 2 per patient, uncontrolled. She is on Lantus 45 units 3 times daily in addition to Humalog sliding scale. Will restart Lantus at 30 units twice a day in addition to insulin sliding scale and continue to monitor. (4) Guaiac positive stools Is this a current diagnosis for this admission?: Yes Plan: Secondary to possible upper and/or lower GI bleed. The patient has large hiatal hernia. She had a colonoscopy 3 years ago which showed polyps. She also had an EGD in July 2017 in [place] per patient. She is due to follow- up with Dr. Salinas next month. Will continue to monitor her H/H and transfuse as needed. Will resume daily PPI. (5) Psoriasis (a type of skin inflammation) Is this a current diagnosis for this admission?: No Plan: The patient is on Enbrel 50 mg IV q. . She follows with Dr. Morales. (6) Smoker Is this a current diagnosis for this admission?: Yes Plan: Down to 2 cigarettes a day. She seems to be motivated to quit. Nicotine patch. - Time Time Spent: Greater than 70 Minutes - Inpatient Certification Based on my medical assessment, after consideration of the patient's comorbidities, presenting symptoms, or acuity I expect that the services needed warrant INPATIENT care.: Yes I certify that my determination is in accordance with my understanding of Medicare's requirements for reasonable and necessary INPATIENT services [42 CFR 412.3e].: Yes
[2018-01-04] MEDS ORDERED: VANCOMYCIN HCL INJ 500 MG VIAL ONE (03:18)
[2018-01-04] MEDS: OXYCODONE-ACETAMINOPHEN 5-325 MG TABLET PO PRN ×5 (03:41→21:33)
[2018-01-04 05:13] LABS: HEMATOCRIT 33.1 % (36.0-47.0); MEAN CORPUSCULAR HEMOGLOBIN 27.2 pg (27.0-33.4); MEAN CORPUSCULAR HGB CONC 33.4 g/dL (32.0-36.0); MEAN CORPUSCULAR VOLUME 81 fl (80-97); PLATELET COUNT 134 10^3/uL (150-450); RED BLOOD COUNT 4.07 10^6/uL (3.72-5.28); WHITE BLOOD COUNT 4.8 10^3/uL (4.0-10.5)
[2018-01-04 05:14] LABS: HEMOGLOBIN 11.1 g/dL (12.0-15.5)
[2018-01-04 05:35] LABS: ALANINE AMINOTRANSFERASE 51 U/L (9-52); ALBUMIN 2.8 g/dL (3.5-5.0); ALKALINE PHOSPHATASE 126 U/L (38-126); ANION GAP 8 (5-19); ASPARTATE AMINO TRANSFERASE 34 U/L (14-36); BILIRUBIN,DIRECT 0.3 mg/dL (0.0-0.4); BILIRUBIN,TOTAL 0.3 mg/dL (0.2-1.3); BLOOD UREA NITROGEN 15 mg/dL (7-20); CALCIUM 8.8 mg/dL (8.4-10.2); CARBON DIOXIDE 25 mmol/L (22-30); CHLORIDE 107 mmol/L (98-107); GLUCOSE 286 mg/dL (75-110); SODIUM 139.9 mmol/L (137-145); TOTAL PROTEIN 5.2 g/dL (6.3-8.2)
[2018-01-04] MEDS ORDERED: POTASSIUM CHLORIDE 10 MEQ TABLET.SA PO ONE (06:00)
[2018-01-04] MEDS: LANSOPRAZOLE 30 MG TAB.RAP.DR PO SCH (06:15)
[2018-01-04] MEDS: INSULIN LISPRO 100 UNIT/ML 3 ML VIAL SUBCUT PRN ×4 (08:49→21:33)
[2018-01-04] MEDS ORDERED: OXYCODONE-ACETAMINOPHEN 5-325 MG TABLET PO PRN ×2 (11:46→11:48)
[2018-01-04] MEDS: NICOTINE 14 MG/24 HR PATCH.TD24 TD SCH (14:18)
[2018-01-04] MEDS: SUCRALFATE 1 GM TABLET PO SCH ×2 (14:59→17:10)
[2018-01-04 16:46] LABS: HEMATOCRIT 30.7 % (36.0-47.0); HEMOGLOBIN 10.1 g/dL (12.0-15.5); MEAN CORPUSCULAR HEMOGLOBIN 27.1 pg (27.0-33.4); MEAN CORPUSCULAR HGB CONC 32.9 g/dL (32.0-36.0); MEAN CORPUSCULAR VOLUME 82 fl (80-97); PLATELET COUNT 124 10^3/uL (150-450); RED BLOOD COUNT 3.74 10^6/uL (3.72-5.28); RED CELL DISTRIBUTION WIDTH 14.8 % (11.5-14.0); WHITE BLOOD COUNT 3.2 10^3/uL (4.0-10.5)
--- NOTE | 2018-01-04 17:42 | PDOC PROGRESS REPORT ---
Subjective Progress Note for:: 01/04/18 Subjective:: JAMES MORRIS is a 62 year old female who presents with abdominal pain and diarrhea. Stool is positive for C. difficile. She has a PMH of recurrent C. difficile, COPD, diabetes, IBS, esophageal hernia, GI bleed secondary to bleeding stomach ulcer. Patient was seen this morning on rounds, she is resting comfortably in bed on room air. She is complaining of intermittent lower abdominal pain, that is mildly controlled with Percocet. She states she is having multiple episodes per day watery diarrhea. Patient denies nausea or vomiting. Plan to expand the patient's pain regimen. Reason For Visit: C DIFF COLITIS Physical Exam Vital Signs: Temp Pulse Resp BP Pulse Ox 98.0 F 77 18 105/58 L 96 01/04/18 12:55 01/04/18 16:46 01/04/18 16:46 01/04/18 12:55 01/04/18 16:46 Intake & Output 01/03/18 01/04/18 01/05/18 06:59 06:59 06:59 Intake Total 1020 Output Total 300 Balance 720 Weight 51.7 kg General appearance: PRESENT: no acute distress Eye exam: PRESENT: conjunctiva pink, PERRLA Mouth exam: PRESENT: moist Teeth exam: PRESENT: poor dentation Neck exam: PRESENT: full ROM Respiratory exam: PRESENT: clear to auscultation megan, symmetrical, unlabored Cardiovascular exam: PRESENT: +S1, +S2 Pulses: PRESENT: normal radial pulses, normal dorsalis pedis pul GI/Abdominal exam: PRESENT: normal bowel sounds, soft, tenderness Rectal exam: PRESENT: heme (+) stool Extremities exam: PRESENT: full ROM Musculoskeletal exam: PRESENT: ambulatory, full ROM Neurological exam: PRESENT: alert, altered, oriented to person, oriented to place, oriented to time, oriented to situation Psychiatric exam: PRESENT: appropriate affect Skin exam: PRESENT: dry, intact, pallor Results Laboratory Results: 01/04/18 16:05 01/04/18 04:05 01/04/18 01/04/18 01/04/18 04:05 04:05 04:05 WBC 4.8 RBC 4.07 Hgb 11.1 L D Hct 33.1 L MCV 81 MCH 27.2 MCHC 33.4 RDW 15.0 H Plt Count 134 L Sodium 139.9 Potassium 3.0 L* Chloride 107 Carbon Dioxide 25 Anion Gap 8 BUN 15 Creatinine 0.55 Est GFR ( Amer) > 60 Est GFR (Non-Af Amer) > 60 Glucose 286 H Calcium 8.8 Magnesium 1.8 Total Bilirubin 0.3 AST 34 ALT 51 Alkaline Phosphatase 126 Total Protein 5.2 L Albumin 2.8 L 01/04/18 16:05 WBC 3.2 L RBC 3.74 Hgb 10.1 L Hct 30.7 L MCV 82 MCH 27.1 MCHC 32.9 RDW 14.8 H Plt Count 124 L Sodium Potassium Chloride Carbon Dioxide Anion Gap BUN Creatinine Est GFR ( Amer) Est GFR (Non-Af Amer) Glucose Calcium Magnesium Total Bilirubin AST ALT Alkaline Phosphatase Total Protein Albumin Impressions: Abdomen/Pelvis CT 01/03/18 20:46 IMPRESSION: 1. No acute abdominopelvic abnormality. 2. Chronic changes include intrathoracic stomach and fatty liver. No evidence of bowel or urinary obstruction. No acute inflammatory process. Status: Imported from PACS Assessment & Plan - Diagnosis (1) Clostridium difficile diarrhea Is this a current diagnosis for this admission?: Yes Plan: The patient is a history of recurrent C. difficile colitis. Last infection was April 2017. She is a patient of Dr. Salinas and there is discussion of fecal transplant, but no concrete plans at this time. Last colonoscopy was [address] abdomen and pelvis completed, results benign. No evidence of inflammatory process. Continue p.o. vancomycin for C. difficile Continue maintenance IVF while patient is having multiple episodes per day of liquid diarrhea Patient complains of persistent lower abdominal pain despite 1 tab p.o. Percocet. Increase dosage to 2 tabs p.o. 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 Patient remains mildly hyperglycemic (BG 250), Anion gap 9. Lantus 30 units twice a day in addition to Humalog sliding insulin. (3) Guaiac positive stools Is this a current diagnosis for this admission?: Yes Plan: Unclear etiology. Upper versus lower GI bleed, could be secondary to C. difficile colitis. Previous colonoscopy 3 years ago showed polyps. EGD in July 2017 at [facility]. Nursing staff does not report melena, although the patient states she is not sure Continue to monitor H/H, plan to transfuse is Hgb <7.0 (4) Hypotension Qualifiers: Hypotension type: unspecified hypotension type Qualified Code(s): I95.9 - Hypotension, unspecified Is this a current diagnosis for this admission?: Yes Plan: Secondary to hypovolemia related to profuse diarrhea. Patient received 1 L IV fluid bolus in the emergency department and her blood pressure normalized Continue maintenance IV fluid. (5) Smoker Is this a current diagnosis for this admission?: Yes Plan: Only smokes 2 cigarettes per day Nicotine patch (6) Hiatal hernia Is this a current diagnosis for this admission?: Yes Plan: Patient endorses a history of hiatal hernia. Continue carafate, as directed by Dr. Fuentes - Time Time Spent with patient: 15-24 minutes Medications reviewed and adjusted accordingly: Yes Anticipated discharge: Home - Inpatient Certification Based on my medical assessment, after consideration of the patient's comorbidities, presenting symptoms, or acuity I expect that the services needed warrant INPATIENT care.: Yes I certify that my determination is in accordance with my understanding of Medicare's requirements for reasonable and necessary INPATIENT services [42 CFR 412.3e].: Yes Medical Necessity: Risk of Complication if Not Cared For in Hospital - Plan Summary Plan Summary: Ultimately, the plan is to discharge patient home with 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
[2018-01-04] MEDS: ALPRAZOLAM 0.5 MG TABLET PO SCH (18:50)
[2018-01-04 20:11] LABS: APPEARANCE,URINE CLOUDY; BILIRUBIN,URINE NEGATIVE (NEGATIVE); GLUCOSE, URINE >=500 mg/dL (NEGATIVE); KETONES,URINE NEGATIVE (NEGATIVE); LEUKOCYTE ESTERASE,URINE LARGE (NEGATIVE); NITRITE,URINE NEGATIVE (NEGATIVE); PROTEIN,URINE 30 mg/dL (NEGATIVE); URINE SPECIFIC GRAVITY 1.031
[2018-01-04 20:12] LABS: COLOR,URINE DARK YELLOW
[2018-01-05] MEDS: VANCOMYCIN HCL INJ 500 MG VIAL PO SCH ×4 (00:32→17:30)
[2018-01-05] MEDS ORDERED: NORMAL SALINE 500 ML IV PRN (01:12)
[2018-01-05] MEDS: OXYCODONE-ACETAMINOPHEN 5-325 MG TABLET PO PRN (04:30)
[2018-01-05] MEDS: ALPRAZOLAM 0.5 MG TABLET PO SCH ×4 (04:47→17:31)
[2018-01-05] MEDS: LANSOPRAZOLE 30 MG TAB.RAP.DR PO SCH (05:17)
[2018-01-05] MEDS: NORMAL SALINE 1000 ML 1,000 ML IV PRN ×2 (07:06→17:30)
[2018-01-05 07:12] LABS: ABSOLUTE EOSINOPHILS # (AUTO) 0.1 10^3/uL (0.0-0.6); ABSOLUTE MONOCYTES (AUTO) 0.3 10^3/uL (0.1-1.4); ABSOLUTE NEUT (AUTO) 1.3 10^3/uL (1.7-8.2); BASOPHILS % (AUTO) 0.6 % (0-2); EOSINOPHILS % (AUTO) 2.4 % (0-6); HEMATOCRIT 30.5 % (36.0-47.0); HEMOGLOBIN 9.9 g/dL (12.0-15.5); LYMPHOCYTES % (AUTO) 38.1 % (13-45); MEAN CORPUSCULAR HEMOGLOBIN 26.9 pg (27.0-33.4); MEAN CORPUSCULAR HGB CONC 32.6 g/dL (32.0-36.0); MEAN CORPUSCULAR VOLUME 83 fl (80-97); MONOCYTES % (AUTO) 10.8 % (3-13); PLATELET COUNT 109 10^3/uL (150-450); RED BLOOD COUNT 3.69 10^6/uL (3.72-5.28); RED CELL DISTRIBUTION WIDTH 14.6 % (11.5-14.0); SEGMENTED NEUTROPHILS % (AUTO) 48.1 % (42-78); TOTAL CELLS COUNTED % (AUTO) 100 %; WHITE BLOOD COUNT 2.7 10^3/uL (4.0-10.5)
[2018-01-05 07:44] LABS: ANION GAP 9 (5-19); BLOOD UREA NITROGEN 6 mg/dL (7-20); CALCIUM 8.3 mg/dL (8.4-10.2); CARBON DIOXIDE 21 mmol/L (22-30); CHLORIDE 113 mmol/L (98-107); GLUCOSE 92 mg/dL (75-110); POTASSIUM 3.3 mmol/L (3.6-5.0); SODIUM 143.3 mmol/L (137-145)
[2018-01-05] MEDS: INSULIN GLARGINE,HUM.REC.ANLOG 300 UNIT/3 ML INSULN.PEN SUBCUT SCH ×2 (09:28→22:04)
[2018-01-05] MEDS: NICOTINE 14 MG/24 HR PATCH.TD24 TD SCH (09:37)
[2018-01-05] MEDS: POTASSIUM CHLORIDE 10 MEQ TABLET.SA PO SCH (09:37)
[2018-01-05] MEDS: SUCRALFATE 1 GM TABLET PO SCH ×3 (09:37→17:30)
[2018-01-05] MEDS: MORPHINE SULFATE 10 MG/ML INJ IV PRN ×3 (11:25→21:45)
[2018-01-05] MEDS: INSULIN LISPRO 100 UNIT/ML 3 ML VIAL SUBCUT PRN ×2 (13:18→17:30)
[2018-01-05] MEDS: PHENAZOPYRIDINE HCL 100 MG TABLET PO SCH ×2 (14:28→21:47)
--- NOTE | 2018-01-05 18:55 | PDOC PROGRESS REPORT ---
Subjective Progress Note for:: 01/05/18 Subjective:: JAMES MORRIS is a 62 year old female who presents with abdominal pain and diarrhea. Stool is positive for C. difficile. She has a PMH of recurrent C. difficile, COPD, diabetes, IBS, esophageal hernia, GI bleed secondary to bleeding stomach ulcer. Patient was seen this morning on rounds, she is resting comfortably in bed on room air. She states that her lower abdominal pain is persistent and that the Percocet is not working very well for her pain. Upon further review, it appears that the nursing staff has only been administering one Percocet at a time, however 2 tablets of Percocet and IV morphine are available for the patient. Plan to discontinue order of one Percocet tablet, and encourage nursing staff to liberalize their administration of pain medication. The patient endorses multiple episodes of watery diarrhea per day. The patient denies nausea or vomiting, she states that she does have an appetite and has been tolerating her clear liquid diet. Overnight, the patient became mildly hypotensive requiring a 500 mL bolus of normal saline. She remains on continuous IVF, and her blood pressure has since normalized. Reason For Visit: C DIFF COLITIS Physical Exam Vital Signs: Temp Pulse Resp BP Pulse Ox 97.9 F 95 16 116/75 97 01/05/18 16:17 01/05/18 16:17 01/05/18 16:17 01/05/18 16:17 01/05/18 16:17 Intake & Output 01/04/18 01/05/18 01/06/18 06:59 06:59 06:59 Intake Total 1020 3342 Output Total 300 1600 Balance 720 1742 Weight 51.7 kg 51.7 kg General appearance: PRESENT: cooperative Exam: Appears older than stated age Head exam: PRESENT: atraumatic Eye exam: PRESENT: conjunctiva pink, PERRLA Mouth exam: PRESENT: moist Teeth exam: PRESENT: poor dentation Neck exam: PRESENT: full ROM Respiratory exam: PRESENT: clear to auscultation megan, symmetrical, unlabored Cardiovascular exam: PRESENT: +S1, +S2 Pulses: PRESENT: normal radial pulses, normal dorsalis pedis pul GI/Abdominal exam: PRESENT: hyperactive bowel sounds, soft, tenderness Rectal exam: PRESENT: deferred Extremities exam: PRESENT: full ROM Musculoskeletal exam: PRESENT: ambulatory, full ROM Neurological exam: PRESENT: alert, awake, oriented to person, oriented to place , oriented to time, oriented to situation Psychiatric exam: PRESENT: appropriate affect Skin exam: PRESENT: dry, intact, normal color Results Laboratory Results: 01/05/18 06:40 01/05/18 06:40 01/04/18 01/05/18 01/05/18 18:55 06:40 06:40 WBC 2.7 L RBC 3.69 L Hgb 9.9 L Hct 30.5 L MCV 83 MCH 26.9 L MCHC 32.6 RDW 14.6 H Plt Count 109 L Seg Neutrophils % 48.1 Lymphocytes % 38.1 Monocytes % 10.8 Eosinophils % 2.4 Basophils % 0.6 Absolute Neutrophils 1.3 L Absolute Lymphocytes 1.0 Absolute Monocytes 0.3 Absolute Eosinophils 0.1 Absolute Basophils 0.0 Sodium 143.3 Potassium 3.3 L Chloride 113 H Carbon Dioxide 21 L Anion Gap 9 BUN 6 L Creatinine 0.44 L Est GFR ( Amer) > 60 Est GFR (Non-Af Amer) > 60 Glucose 92 Calcium 8.3 L Phosphorus 3.0 Magnesium 1.6 Urine Color DARK YELLOW Urine Appearance CLOUDY Urine pH 6.0 Ur Specific [place] 1.031 Urine Protein 30 H Urine Glucose (UA) >=500 H Urine Ketones NEGATIVE Urine Blood SMALL H Urine Nitrite NEGATIVE Ur Leukocyte Esterase LARGE H Urine WBC (Auto) >182 Urine RBC (Auto) 3 Blood Type Antibody Screen 01/05/18 06:40 WBC RBC Hgb Hct MCV MCH MCHC RDW Plt Count Seg Neutrophils % Lymphocytes % Monocytes % Eosinophils % Basophils % Absolute Neutrophils Absolute Lymphocytes Absolute Monocytes Absolute Eosinophils Absolute Basophils Sodium Potassium Chloride Carbon Dioxide Anion Gap BUN Creatinine Est GFR ( Amer) Est GFR (Non-Af Amer) Glucose Calcium Phosphorus Magnesium Urine Color Urine Appearance Urine pH Ur Specific [place] Urine Protein Urine Glucose (UA) Urine Ketones Urine Blood Urine Nitrite Ur Leukocyte Esterase Urine WBC (Auto) Urine RBC (Auto) Blood Type O POSITIVE Antibody Screen NEGATIVE Impressions: Abdomen/Pelvis CT 01/03/18 20:46 IMPRESSION: 1. No acute abdominopelvic abnormality. 2. Chronic changes include intrathoracic stomach and fatty liver. No evidence of bowel or urinary obstruction. No acute inflammatory process. Status: Imported from PACS Assessment & Plan - Diagnosis (1) Clostridium difficile diarrhea Is this a current diagnosis for this admission?: Yes Plan: The patient is a history of recurrent C. difficile colitis. Last infection was April 2017. She is a patient of Dr. Salinas and there is discussion of fecal transplant, but no concrete plans at this time. Last colonoscopy was [address] abdomen and pelvis completed, results benign. No evidence of inflammatory process. Continue p.o. vancomycin for C. difficile Continue maintenance IVF while patient is having multiple episodes per day of liquid diarrhea Patient complains of persistent lower abdominal pain despite 1 tab p.o. Percocet. Increase dosage to 2 tabs p.o. Percocet, along with IV morphine as needed Consulted ID and GI, awaiting recommendations. (2) Diabetes mellitus Qualifiers: Diabetes mellitus type: other specified (including CHAO) Diabetes mellitus fci insulin use: with fci use Is this a current diagnosis for this admission?: Yes Plan: Patient endorses history of diabetes, uncontrolled. Patient remains mildly hyperglycemic (BG 250), Anion gap 9. Lantus 30 units twice a day in addition to Humalog sliding insulin. (3) Guaiac positive stools Is this a current diagnosis for this admission?: Yes Plan: Unclear etiology. Upper versus lower GI bleed, could be secondary to C. difficile colitis. Previous colonoscopy 3 years ago showed polyps. EGD in July 2017 at [facility]. Nursing staff does not report melena, although the patient states she is not sure Continue to monitor H/H, plan to transfuse is Hgb <7.0 (4) Hypotension Qualifiers: Hypotension type: unspecified hypotension type Qualified Code(s): I95.9 - Hypotension, unspecified Is this a current diagnosis for this admission?: Yes Plan: Secondary to hypovolemia related to profuse diarrhea. The patient became mildly hypotensive last night, requiring 500 mL IV bolus. Since that time her blood pressures normalized. Continue maintenance IV fluid 100mL/hr. (5) Smoker Is this a current diagnosis for this admission?: Yes Plan: Only smokes 2 cigarettes per day Nicotine patch (6) Hiatal hernia Is this a current diagnosis for this admission?: Yes Plan: Patient endorses a history of hiatal hernia. Continue carafate, as directed by Dr. Fuentes (7) UTI (urinary tract infection) Qualifiers: Urinary tract infection type: acute cystitis Is this a current diagnosis for this admission?: Yes Plan: Clean catch UA positive for UTI. Nursing staff straight cathed for urine culture, results pending. Wanting to avoid treating with antibiotics as much as possible given her C. difficile colitis. ID consulted, awaiting recommendations. - Time Time Spent with patient: 15-24 minutes Medications reviewed and adjusted accordingly: Yes Anticipated discharge: Home - Inpatient Certification Based on my medical assessment, after consideration of the patient's comorbidities, presenting symptoms, or acuity I expect that the services needed warrant INPATIENT care.: Yes I certify that my determination is in accordance with my understanding of Medicare's requirements for reasonable and necessary INPATIENT services [42 CFR 412.3e].: Yes Medical Necessity: Need For IV Fluids, Risk of Complication if Not Cared For in Hospital - Plan Summary Plan Summary: Awaiting recommendations from ID and gastroenterology.
[2018-01-06] MEDS: VANCOMYCIN HCL INJ 500 MG VIAL PO SCH ×5 (00:37→23:35)
[2018-01-06] MEDS: ALPRAZOLAM 0.5 MG TABLET PO SCH ×5 (02:29→23:35)
[2018-01-06] MEDS: MORPHINE SULFATE 10 MG/ML INJ IV PRN ×3 (02:36→23:35)
[2018-01-06] MEDS: PHENAZOPYRIDINE HCL 100 MG TABLET PO SCH ×3 (05:12→21:22)
[2018-01-06] MEDS: LANSOPRAZOLE 30 MG TAB.RAP.DR PO SCH (05:12)
[2018-01-06 06:20] LABS: ABSOLUTE EOSINOPHILS # (AUTO) 0.1 10^3/uL (0.0-0.6); ABSOLUTE LYMPHOCYTES (AUTO) 1.3 10^3/uL (0.5-4.7); ABSOLUTE MONOCYTES (AUTO) 0.4 10^3/uL (0.1-1.4); ABSOLUTE NEUT (AUTO) 2.1 10^3/uL (1.7-8.2); BASOPHILS % (AUTO) 0.6 % (0-2); EOSINOPHILS % (AUTO) 2.1 % (0-6); HEMATOCRIT 31.1 % (36.0-47.0); HEMOGLOBIN 10.1 g/dL (12.0-15.5); MEAN CORPUSCULAR HGB CONC 32.5 g/dL (32.0-36.0); MEAN CORPUSCULAR VOLUME 83 fl (80-97); MONOCYTES % (AUTO) 9.9 % (3-13); PLATELET COUNT 110 10^3/uL (150-450); RED BLOOD COUNT 3.73 10^6/uL (3.72-5.28); SEGMENTED NEUTROPHILS % (AUTO) 54.4 % (42-78); TOTAL CELLS COUNTED % (AUTO) 100 %; WHITE BLOOD COUNT 3.8 10^3/uL (4.0-10.5)
[2018-01-06 06:42] LABS: ANION GAP 10 (5-19); BLOOD UREA NITROGEN 3 mg/dL (7-20); CALCIUM 8.7 mg/dL (8.4-10.2); CARBON DIOXIDE 22 mmol/L (22-30); CHLORIDE 113 mmol/L (98-107); GLUCOSE 74 mg/dL (75-110); PHOSPHORUS 2.3 mg/dL (2.5-4.5); POTASSIUM 3.3 mmol/L (3.6-5.0); SODIUM 145.2 mmol/L (137-145)
[2018-01-06] MEDS ORDERED: POTASSI CL 20 MEQ/50 ML RIDER 20 MEQ/50 ML RTUPB IV SCH (08:35)
[2018-01-06] MEDS: POTASSIUM CHLORIDE 10 MEQ TABLET.SA PO SCH (11:03)
[2018-01-06] MEDS: NICOTINE 14 MG/24 HR PATCH.TD24 TD SCH (11:04)
[2018-01-06] MEDS: SUCRALFATE 1 GM TABLET PO SCH ×3 (11:04→17:51)
[2018-01-06] MEDS: INSULIN GLARGINE,HUM.REC.ANLOG 300 UNIT/3 ML INSULN.PEN SUBCUT SCH ×2 (11:04→21:21)
[2018-01-06] MEDS: OXYCODONE-ACETAMINOPHEN 5-325 MG TABLET PO PRN ×3 (11:36→19:47)
[2018-01-06] MEDS: INSULIN LISPRO 100 UNIT/ML 3 ML VIAL SUBCUT PRN ×2 (13:18→17:51)
[2018-01-06] MEDS ORDERED: POTASSIUM CHLORIDE 10 MEQ TABLET.SA PO ONE (14:59)
--- NOTE | 2018-01-06 15:04 | PDOC PROGRESS REPORT ---
Subjective Progress Note for:: 01/06/18 Subjective:: The patient is a 62-year-old female with a past medical history of recurrent C. difficile, COPD, diabetes, IBS, hiatal hernia, GI bleeding secondary to PUD who was admitted on 01/03/18 for C. difficile infection. The patient is seen on morning rounds. She is found resting comfortably in bed on room air. She reports that she is feeling well today; she does endorse slight lower abdominal discomfort. She reports that she has had one loose bowel movement today which is an improvement from 4 bowel movements yesterday. She also reports a return of her appetite and requests to advance her diet today. She denies fever, chills, body aches, chest pain, palpitations, orthopnea, shortness of breath, nausea, and vomiting. Reason For Visit: C DIFF COLITIS Physical Exam Vital Signs: Temp Pulse Resp BP Pulse Ox 98.0 F 101 H 16 120/63 97 01/06/18 11:14 01/06/18 14:00 01/06/18 14:00 01/06/18 11:14 01/06/18 14:00 Intake & Output 01/05/18 01/06/18 01/07/18 06:59 06:59 06:59 Intake Total 3342 3773 Output Total 1600 Balance 1742 3773 Weight 51.7 kg General appearance: PRESENT: no acute distress, well-developed, well-nourished Head exam: PRESENT: atraumatic, normocephalic Eye exam: PRESENT: conjunctiva pink, EOMI, PERRLA. ABSENT: scleral icterus Ear exam: PRESENT: normal external ear exam Mouth exam: PRESENT: moist, tongue midline Neck exam: ABSENT: carotid bruit, JVD, lymphadenopathy, thyromegaly Respiratory exam: PRESENT: clear to auscultation megan, symmetrical, unlabored. ABSENT: rales, rhonchi, wheezes Cardiovascular exam: PRESENT: RRR. ABSENT: diastolic murmur, rubs, systolic murmur Pulses: PRESENT: normal dorsalis pedis pul Vascular exam: PRESENT: normal capillary refill GI/Abdominal exam: PRESENT: hyperactive bowel sounds, normal bowel sounds, soft , tenderness - mild w/ palpation. ABSENT: distended, guarding, mass, organolmegaly, rebound Rectal exam: PRESENT: deferred Extremities exam: PRESENT: full ROM. ABSENT: calf tenderness, clubbing, pedal edema Neurological exam: PRESENT: alert, awake, oriented to person, oriented to place , oriented to time, oriented to situation, CN II-XII grossly intact. ABSENT: motor sensory deficit Psychiatric exam: PRESENT: appropriate affect, normal mood. ABSENT: homicidal ideation, suicidal ideation Skin exam: PRESENT: dry, intact, warm. ABSENT: cyanosis, rash Results Laboratory Results: 01/06/18 05:20 01/06/18 05:20 01/06/18 01/06/18 05:20 05:20 WBC 3.8 L RBC 3.73 Hgb 10.1 L Hct 31.1 L MCV 83 MCH 27.0 MCHC 32.5 RDW 15.0 H Plt Count 110 L Seg Neutrophils % 54.4 Lymphocytes % 33.0 Monocytes % 9.9 Eosinophils % 2.1 Basophils % 0.6 Absolute Neutrophils 2.1 Absolute Lymphocytes 1.3 Absolute Monocytes 0.4 Absolute Eosinophils 0.1 Absolute Basophils 0.0 Sodium 145.2 H Potassium 3.3 L Chloride 113 H Carbon Dioxide 22 Anion Gap 10 BUN 3 L Creatinine 0.43 L Est GFR ( Amer) > 60 Est GFR (Non-Af Amer) > 60 Glucose 74 L Calcium 8.7 Phosphorus 2.3 L Magnesium 1.7 Impressions: Abdomen/Pelvis CT 01/03/18 20:46 IMPRESSION: 1. No acute abdominopelvic abnormality. 2. Chronic changes include intrathoracic stomach and fatty liver. No evidence of bowel or urinary obstruction. No acute inflammatory process. Assessment & Plan - Diagnosis (1) Clostridium difficile diarrhea Is this a current diagnosis for this admission?: Yes Plan: The patient has a history of recurrent C. difficile colitis with last infection in April 2017. She is followed by Dr. Vargas as an outpatient and there has been discussion of fecal transplant, although this was several years ago. She also reports that she has been considered for studies in the past. Last colonoscopy was approximately [address] of the abdomen and pelvis was completed; benign and without evidence of inflammatory process. The patient has been admitted to the medical floor. She is receiving maintenance IV fluids. She has been placed on p.o. vancomycin. We will consult infectious disease for recommendations on length of therapy versus addition of p.o. metronidazole. Dr. Salinas has been consulted; appreciate his evaluation recommendations. The patient is provided Percocet as needed for pain. Antiemetics as needed. The patient has tolerated a clear liquid diet with decreased abdominal discomfort and frequency of stool; will advance to full liquid today. (2) Diabetes mellitus Qualifiers: Diabetes mellitus type: other specified (including CHAO) Diabetes mellitus fpc insulin use: with fpc use Is this a current diagnosis for this admission?: Yes Plan: The patient endorses a history of uncontrolled diabetes mellitus. She remains hyperglycemic with an average blood glucose of 250-300. Will advance diet to full liquids today. Accu-Cheks before meals and at bedtime with Humalog for sliding scale coverage. Continue Lantus 30 units twice daily. We will consult the ict educator and registered dietitian. (3) Hypotension Qualifiers: Hypotension type: unspecified hypotension type Qualified Code(s): I95.9 - Hypotension, unspecified Is this a current diagnosis for this admission?: Yes Plan: Improved follow IVF bolus yesterday. Secondary to hypovolemia related to profuse diarrhea. Continue maintenance IV fluids and encourage p.o. intake. (4) UTI (urinary tract infection) Qualifiers: Urinary tract infection type: acute cystitis Is this a current diagnosis for this admission?: Yes Plan: Clean-catch urinalysis was positive for UTI. Urine culture is pending. Wanting to avoid treatment with antibiotics as much as possible given her recurrent C. difficile colitis. She has no denies urinary urgency, dysuria, hematuria, and flank pain. We will hold on antibiotic treatment until cultures result. (5) Hiatal hernia Is this a current diagnosis for this admission?: Yes Plan: Patient endorses a history of hiatal hernia. Followed by Dr. Salinas; appreciate his evaluation and recommendations. Continue carafate. (6) Smoker Is this a current diagnosis for this admission?: Yes Plan: Smoking cessation is encouraged; nicotine replacement therapies are offered. (7) Hypokalemia Is this a current diagnosis for this admission?: Yes Plan: Secondary to GI losses. Will replace and continue to monitor with daily chemistries. (8) Guaiac positive stools Is this a current diagnosis for this admission?: Yes Plan: Secondary to C. difficile colitis. Continue PPI and carafate. GI has been consulted; appreciate their assistance. - Time Time Spent with patient: 25-34 minutes Medications reviewed and adjusted accordingly: Yes Anticipated discharge: Home - Inpatient Certification Based on my medical assessment, after consideration of the patient's comorbidities, presenting symptoms, or acuity I expect that the services needed warrant INPATIENT care.: Yes I certify that my determination is in accordance with my understanding of Medicare's requirements for reasonable and necessary INPATIENT services [42 CFR 412.3e].: Yes Medical Necessity: Need For IV Fluids
--- NOTE | 2018-01-06 15:22 | Progress Note ---
Provider Note Provider Note: ID Consult Note Asked to review patient's chart by Pharmacy. Pt not seen or examined. Reviewed VS, notes, imaging, and labs. Ms. Camarillo is a 62 yo woman with pmh including chronic back pain on opioids, abdominal pain related to opioid induced constipation, diabetes mellitus with multiple prior admissions for HONK, COPD, anxiety and recurrent C. difficile diarrhea. Review of prior H&Ps at [facility] reveals the last admission with diarrhea attributed to C. difficile was in Jul 2017. She has had multiple stool PCRs positive for C. difficile toxin in the past. She presented on 01/03/18 with c/o diffuse abdominal pain and diarrhea for 6 days after recent admissions to the hospital for HONK or medication induced altered mental status (opiates and benzodiazepine use). Her exam was notable for tenderness. Her CT scan was read as showing no acute inflammatory process. Her WBC count is normal. Her creatinine is not elevated. PCR of stool was positive for C. diff. toxin gene. Impression/Recommendations Recurrent episode of Clostridium difficle diarrhea, non-severe - For her current episode of C. difficile diarrhea, she has been receiving 250 mg vancomycin PO q6h. I do not see an indication for the higher dose of PO vancomycin in absence of fulminant disease. She can be treated with the standard dose of 125 mg vancomycin PO q6h, since this dose exceeds the CHRISTOPHER for C diff many times over. If she continues treatment with PO vancomycin, a pulsed/ tapered regimen may be beneficial: vancomycin 125 mg q6h x 10 days, then 2 times a day for 1 week, then daily for 1 week, then every 2-3 days for another 2 weeks. - An alternative that should be investigated is whether Ms. Camarillo can get treatment with fidaxomicin 200 mg BID x 10 days instead. Fidaxomicin may have an advantage over PO vancomycin in terms of reduced risk of recurrence, but cost may be an issue and would have to be investigated with assistance from social work/case management. If she cannot be treated with fidaxomicin, continue PO vancomycin with a pulse/taper as stated above. - The patient should be counseled on the need to avoid unnecessary antibiotic exposure, since this would contribute to dysbiosis. For example, she should not have urine sent for culture unless she has dysuria, and she should not receive antibiotics for asymptomatic bacteriuria. As another example, she should not receive antibiotics as a routine matter of course for rhinosinusitis, since most patients have rhinosinusitis due to viral etiologies or have self-limited disease that resolves without antibiotics even with acute bacterial rhinosinusitis. Xu King MD [facility] Infectious Diseases pager [phone]
[2018-01-06] MEDS: NORMAL SALINE 1000 ML 1,000 ML IV PRN (15:29)
--- NOTE | 2018-01-06 22:05 | CONSULTATION REPORT E ---
Consultation Report NAME: JAMES MORRIS : 1955 AGE: 62Y DATE: 425 A TO: DEXTER GUERRA M.D. FROM: MALCOLM IYER M.D. Requesting Physician HISTORY OF PRESENT ILLNESS: This is a 62-year-old patient who was admitted to the hospital with abdominal pain and diarrhea. She started having diarrhea about 6 days ago with her bowels changing from her usual 1-2 times a day to 5-6 times. She will occasionally wake up at night with diarrhea. There was some lower abdominal pain which gets worse prior to a bowel movement. Moving her bowels does help the pain. She denies any rectal bleeding but does have some nausea. There is no fever. On admission, her stool was positive for C. diff. She is currently on vancomycin 125 mg q.i.d. and she is feeling better. She still has some diarrhea but the frequency is less. PAST MEDICAL HISTORY: 1. Recurrent C. difficile colitis in 12/2014, 03/2015, 12/2015, May 2016, April 2017. 2. Grade 3 esophagitis. 3. Esophageal stricture. 4. COPD. 5. Diabetes. 6. Diverticulosis. 7. Colon polyps. 8. DKA. PAST SURGICAL HISTORY: 1. Multiple EGDs and colonoscopies. 2. Bladder surgery. 3. Tubal ligation. 4. Cataract surgery. ALLERGIES: None. SOCIAL HISTORY: Noncontributory. REVIEW OF SYSTEMS: Other than the above, is noncontributory. PHYSICAL EXAMINATION: GENERAL: Shows a lady in no distress. VITAL SIGNS: She has a blood pressure of 127/74, heart rate of 91, temperature of 98.3. HEENT: No pallor. No jaundice. Oropharynx normal. NECK: No bruit. No JVD. CHEST: There is some kyphosis. LUNGS: Clear. HEART: Heart sounds 1 and 2 normal without murmurs. ABDOMEN: Soft and nontender. Liver and spleen not palpable. Bowel sounds active. NEUROLOGIC: Grossly nonfocal. DIAGNOSTICS: Laboratory tests on admission showed an H and H of 14 and 44 with a white count of 9.4. Sodium of 140, creatinine of 1.06. AST of 59, ALT 73, alkaline phosphatase of 200. Stool was positive for C. difficile toxin. A CT of the abdomen was unremarkable except for fatty liver. ASSESSMENT AND PLAN: 1. C. difficile colitis. Patient's symptoms and stool results are consistent with C. difficile infection. She has not been on any antibiotic probably for the last year. She had multiple episodes of C. difficile infection in the past and at some point, we were considering fecal transplant. She is doing better with the vancomycin and we should continue with this for 14 days. She may be a candidate for a C. diff. recurrence study by DAWNA. I will follow her up in the office. 2. Esophagitis and stricture. She is due for endoscopy in the next few weeks with further dilation of her stricture. DICTATING PHYSICIAN: DEXTER GUERRA M.D. [id number] PHY#: [id number] ID: [id number] JOB#: [id number] ACCT: [id number] cc:DEXTER GUERRA M.D. >
[2018-01-07] MEDS: OXYCODONE-ACETAMINOPHEN 5-325 MG TABLET PO PRN ×3 (04:10→21:29)
[2018-01-07] MEDS: LANSOPRAZOLE 30 MG TAB.RAP.DR PO SCH (06:02)
[2018-01-07] MEDS: VANCOMYCIN HCL INJ 500 MG VIAL PO SCH ×4 (06:03→23:38)
[2018-01-07] MEDS: ALPRAZOLAM 0.5 MG TABLET PO SCH ×4 (06:03→23:38)
[2018-01-07 06:54] LABS: HEMATOCRIT 29.2 % (36.0-47.0); HEMOGLOBIN 9.5 g/dL (12.0-15.5); MEAN CORPUSCULAR HEMOGLOBIN 27.2 pg (27.0-33.4); MEAN CORPUSCULAR HGB CONC 32.5 g/dL (32.0-36.0); MEAN CORPUSCULAR VOLUME 84 fl (80-97); RED BLOOD COUNT 3.48 10^6/uL (3.72-5.28); RED CELL DISTRIBUTION WIDTH 14.9 % (11.5-14.0)
[2018-01-07 07:06] LABS: ANION GAP 6 (5-19); BLOOD UREA NITROGEN 3 mg/dL (7-20); CALCIUM 8.7 mg/dL (8.4-10.2); CARBON DIOXIDE 24 mmol/L (22-30); CHLORIDE 113 mmol/L (98-107); GLUCOSE 84 mg/dL (75-110); POTASSIUM 3.4 mmol/L (3.6-5.0); SODIUM 142.5 mmol/L (137-145)
[2018-01-07 07:21] LABS: WHITE BLOOD COUNT 2.7 10^3/uL (4.0-10.5)
[2018-01-07 07:25] LABS: PLATELET COUNT 95 10^3/uL (150-450)
[2018-01-07] MEDS: NICOTINE 14 MG/24 HR PATCH.TD24 TD SCH (10:47)
[2018-01-07] MEDS: SUCRALFATE 1 GM TABLET PO SCH ×3 (10:47→17:07)
[2018-01-07] MEDS: POTASSIUM CHLORIDE 10 MEQ TABLET.SA PO SCH (10:47)
[2018-01-07] MEDS: INSULIN GLARGINE,HUM.REC.ANLOG 300 UNIT/3 ML INSULN.PEN SUBCUT SCH ×2 (10:48→21:29)
[2018-01-07] MEDS: NORMAL SALINE 1000 ML 1,000 ML IV PRN (11:02)
[2018-01-07] MEDS: INSULIN LISPRO 100 UNIT/ML 3 ML VIAL SUBCUT PRN ×3 (12:54→21:30)
[2018-01-07] MEDS: MORPHINE SULFATE 10 MG/ML INJ IV PRN ×3 (12:55→21:30)
--- NOTE | 2018-01-07 16:21 | PDOC PROGRESS REPORT ---
Subjective Progress Note for:: 01/07/18 Subjective:: The patient is a 62-year-old female with a past medical history of recurrent C. difficile, COPD, diabetes, IBS, hiatal hernia, GI bleeding secondary to PUD who was admitted on 01/03/18 for C. difficile infection. The patient is seen on morning rounds. She is found resting comfortably in bed on room air. She reports that she is feeling well today; she does endorse lower abdominal discomfort associated with bowel movements. It is unclear whether or not the patient is having a decrease in her bowel movements; the patient tells me that she has had at least 6 episodes of diarrhea since 3 AM, however, per nursing the patient has had only one episode since yesterday. I have asked nursing to document each stool. She does report that she is very hungry today and requests to advance her diet again. She denies fever, chills, body aches, chest pain, palpitations, orthopnea, shortness of breath, nausea, and vomiting. Reason For Visit: C DIFF COLITIS Physical Exam Vital Signs: Temp Pulse Resp BP Pulse Ox 97.5 F 97 19 118/75 100 01/07/18 11:42 01/07/18 14:00 01/07/18 11:42 01/07/18 11:42 01/07/18 11:42 Intake & Output 01/06/18 01/07/18 01/08/18 06:59 06:59 06:59 Intake Total 3773 2537 Output Total 400 Balance 3773 2137 Weight 51.7 kg General appearance: PRESENT: no acute distress, well-developed, well-nourished Head exam: PRESENT: atraumatic, normocephalic Eye exam: PRESENT: conjunctiva pink, EOMI, PERRLA. ABSENT: scleral icterus Ear exam: PRESENT: normal external ear exam Mouth exam: PRESENT: moist, tongue midline Neck exam: ABSENT: carotid bruit, JVD, lymphadenopathy, thyromegaly Respiratory exam: PRESENT: clear to auscultation megan. ABSENT: rales, rhonchi, wheezes Cardiovascular exam: PRESENT: RRR. ABSENT: diastolic murmur, rubs, systolic murmur Pulses: PRESENT: normal dorsalis pedis pul Vascular exam: PRESENT: normal capillary refill GI/Abdominal exam: PRESENT: normal bowel sounds, soft, tenderness - With palpation. ABSENT: distended, guarding, mass, organolmegaly, rebound Rectal exam: PRESENT: deferred Extremities exam: PRESENT: full ROM. ABSENT: calf tenderness, clubbing, pedal edema Neurological exam: PRESENT: alert, awake, oriented to person, oriented to place , oriented to time, oriented to situation, CN II-XII grossly intact. ABSENT: motor sensory deficit Psychiatric exam: PRESENT: appropriate affect, normal mood. ABSENT: homicidal ideation, suicidal ideation Skin exam: PRESENT: dry, intact, warm. ABSENT: cyanosis, rash Results Laboratory Results: 01/07/18 05:50 01/07/18 05:50 01/07/18 01/07/18 05:50 05:50 WBC 2.7 L D RBC 3.48 L Hgb 9.5 L Hct 29.2 L MCV 84 MCH 27.2 MCHC 32.5 RDW 14.9 H Plt Count 95 L Sodium 142.5 Potassium 3.4 L Chloride 113 H Carbon Dioxide 24 Anion Gap 6 BUN 3 L Creatinine 0.37 L Est GFR ( Amer) > 60 Est GFR (Non-Af Amer) > 60 Glucose 84 Calcium 8.7 Impressions: Abdomen/Pelvis CT 01/03/18 20:46 IMPRESSION: 1. No acute abdominopelvic abnormality. 2. Chronic changes include intrathoracic stomach and fatty liver. No evidence of bowel or urinary obstruction. No acute inflammatory process. Assessment & Plan - Diagnosis (1) Clostridium difficile diarrhea Is this a current diagnosis for this admission?: Yes Plan: The patient has a history of recurrent C. difficile colitis with last infection in April 2017. She is followed by Dr. Salinas as an outpatient and there has been discussion of fecal transplant, although this was several years ago. She also reports that she has been considered for studies in the past. Last colonoscopy was approximately [address] of the abdomen and pelvis was completed; benign and without evidence of inflammatory process. The patient has been admitted to the medical floor. She has been placed on p.o. vancomycin. Infectious disease was consulted; recommend vancomycin 125 mg p.o. every 6 hours 10 days and then begin tapered dosing (please refer to Dr. King's consultation note). Today is day #4. Dr. Salinas has been consulted; appreciate his evaluation recommendations. The patient is provided Percocet as needed for pain. Antiemetics as needed. The patient has tolerated a full liquid diet; will advance to ESTEBAN diet today. (2) Diabetes mellitus Qualifiers: Diabetes mellitus type: other specified (including CHAO) Diabetes mellitus manager long term care insulin use: with nursing home use Is this a current diagnosis for this admission?: Yes Plan: The patient endorses a history of uncontrolled diabetes mellitus. She remains hyperglycemic with an average blood glucose of 250-300. Will advance to ESTEBAN diet today. Accu-Cheks before meals and at bedtime with Humalog for sliding scale coverage. Continue Lantus 30 units twice daily. We will consult the director of dance and registered dietitian. (3) Hypotension Qualifiers: Hypotension type: unspecified hypotension type Qualified Code(s): I95.9 - Hypotension, unspecified Is this a current diagnosis for this admission?: Yes Plan: Improved follow IV fluids. Secondary to hypovolemia related to profuse diarrhea. Now with decreased frequency and volume of stools; will discontinue IV fluids. Encourage p.o. intake. (4) UTI (urinary tract infection) Qualifiers: Urinary tract infection type: acute cystitis Is this a current diagnosis for this admission?: Yes Plan: Clean-catch urinalysis was positive for UTI. Urine culture is positive for gram-positive cocci. Wanting to avoid treatment with antibiotics as much as possible given her recurrent C. difficile colitis. The patient requests antibiotic treatment be withheld until culture and sensitivity results are available. (5) Hiatal hernia Is this a current diagnosis for this admission?: Yes Plan: Patient endorses a history of hiatal hernia. Followed by Dr. Salinas; appreciate his evaluation and recommendations. Continue carafate. (6) Smoker Is this a current diagnosis for this admission?: Yes Plan: Smoking cessation is encouraged; nicotine replacement therapies are offered. (7) Hypokalemia Is this a current diagnosis for this admission?: Yes Plan: Secondary to GI losses. Will replace and continue to monitor with daily chemistries. (8) Guaiac positive stools Is this a current diagnosis for this admission?: Yes Plan: Secondary to C. difficile colitis. Continue PPI and carafate. GI has been consulted; appreciate their assistance. (9) Leukopenia Is this a current diagnosis for this admission?: Yes Plan: WBCs are trending down; 9.4 --> 2.7. We will continue to monitor; will obtain CBC with differential tomorrow and consider peripheral smear. Consider consultation with hematology for continued decreases. (10) Thrombocytopenia Is this a current diagnosis for this admission?: Yes Plan: Platelets are trending down from 276--> 95. Likely secondary to acute infectious process. Holding heparin; encourage patient to be compliant with CYNDEE hose and SCDs. We will continue to monitor, will obtain CBC with differential tomorrow. Consider peripheral smear and hematology consultation if continued downward trend. - Time Time Spent with patient: 25-34 minutes Medications reviewed and adjusted accordingly: Yes Anticipated discharge: Home
[2018-01-08] MEDS: MORPHINE SULFATE 10 MG/ML INJ IV PRN ×3 (01:57→12:12)
[2018-01-08 05:35] LABS: ABSOLUTE EOSINOPHILS # (AUTO) 0.1 10^3/uL (0.0-0.6); ABSOLUTE LYMPHOCYTES (AUTO) 1.1 10^3/uL (0.5-4.7); ABSOLUTE MONOCYTES (AUTO) 0.4 10^3/uL (0.1-1.4); ABSOLUTE NEUT (AUTO) 1.7 10^3/uL (1.7-8.2); BASOPHILS % (AUTO) 0.4 % (0-2); EOSINOPHILS % (AUTO) 2.6 % (0-6); HEMATOCRIT 30.1 % (36.0-47.0); HEMOGLOBIN 9.7 g/dL (12.0-15.5); LYMPHOCYTES % (AUTO) 33.8 % (13-45); MEAN CORPUSCULAR HGB CONC 32.3 g/dL (32.0-36.0); MEAN CORPUSCULAR VOLUME 84 fl (80-97); MONOCYTES % (AUTO) 12.2 % (3-13); PLATELET COUNT 114 10^3/uL (150-450); RED CELL DISTRIBUTION WIDTH 15.2 % (11.5-14.0); TOTAL CELLS COUNTED % (AUTO) 100 %; WHITE BLOOD COUNT 3.4 10^3/uL (4.0-10.5)
[2018-01-08 05:51] LABS: ALANINE AMINOTRANSFERASE 56 U/L (9-52); ALBUMIN 2.8 g/dL (3.5-5.0); ALKALINE PHOSPHATASE 104 U/L (38-126); ANION GAP 9 (5-19); ASPARTATE AMINO TRANSFERASE 41 U/L (14-36); BLOOD UREA NITROGEN 3 mg/dL (7-20); CALCIUM 9.1 mg/dL (8.4-10.2); CARBON DIOXIDE 24 mmol/L (22-30); CHLORIDE 112 mmol/L (98-107); GLUCOSE 83 mg/dL (75-110); POTASSIUM 3.5 mmol/L (3.6-5.0); SODIUM 144.5 mmol/L (137-145); TOTAL PROTEIN 5.2 g/dL (6.3-8.2)
[2018-01-08 05:54] LABS: BILIRUBIN,TOTAL < 0.1 mg/dL (0.2-1.3)
[2018-01-08] MEDS: ALPRAZOLAM 0.5 MG TABLET PO SCH ×3 (05:55→17:49)
[2018-01-08] MEDS: LANSOPRAZOLE 30 MG TAB.RAP.DR PO SCH (05:55)
[2018-01-08] MEDS: VANCOMYCIN HCL INJ 500 MG VIAL PO SCH ×3 (05:55→17:48)
[2018-01-08] MEDS: OXYCODONE-ACETAMINOPHEN 5-325 MG TABLET PO PRN ×3 (09:01→20:34)
[2018-01-08] MEDS: SUCRALFATE 1 GM TABLET PO SCH ×3 (09:49→17:48)
[2018-01-08] MEDS: INSULIN GLARGINE,HUM.REC.ANLOG 300 UNIT/3 ML INSULN.PEN SUBCUT SCH ×2 (09:49→22:10)
[2018-01-08] MEDS: POTASSIUM CHLORIDE 10 MEQ TABLET.SA PO SCH (09:49)
[2018-01-08] MEDS: NICOTINE 14 MG/24 HR PATCH.TD24 TD SCH (09:50)
[2018-01-08] MEDS: AMPICILLIN TRIHYD 500 MG CAPSULE PO SCH ×2 (12:13→17:48)
[2018-01-08] MEDS ORDERED: MORPHINE SULFATE 10 MG/ML INJ IV PRN (15:39)
--- NOTE | 2018-01-08 15:49 | PDOC PROGRESS REPORT ---
Subjective Progress Note for:: 01/08/18 Subjective:: The patient is a 62-year-old female with a past medical history of recurrent C. difficile, COPD, diabetes, IBS, hiatal hernia, GI bleeding secondary to PUD who was admitted on 01/03/18 for C. difficile infection. The patient is seen on morning rounds. She is found resting comfortably in bed on room air. She continues to have lower abdominal discomfort associated with bowel movements described as "contractions." Per nursing, the patient has had > 7 bowel movements over the last 24 hours. The patient also complains of urinary frequency and dysuria. She denies urgency , retention, and flank pain. She is very unhappy with her diet and again asks to have it advanced; she is advised against this considering her continued abdominal pain and frequent bowel movements. She denies fever, chills, body aches, chest pain, palpitations, orthopnea, shortness of breath, nausea, and vomiting. She has no other questions or concerns today. Reason For Visit: C DIFF COLITIS Physical Exam Vital Signs: Temp Pulse Resp BP Pulse Ox 98.2 F 81 12 107/65 99 01/08/18 13:00 01/08/18 13:00 01/08/18 13:00 01/08/18 13:00 01/08/18 13:00 Intake & Output 01/07/18 01/08/18 01/09/18 06:59 06:59 06:59 Intake Total 2537 2244 Output Total 400 1300 Balance 2137 944 Weight 51.7 kg 51.6 kg General appearance: PRESENT: no acute distress, disheveled, well-developed, well -nourished Head exam: PRESENT: atraumatic, normocephalic Eye exam: PRESENT: conjunctiva pink, EOMI, PERRLA. ABSENT: scleral icterus Ear exam: PRESENT: normal external ear exam Mouth exam: PRESENT: moist, tongue midline Neck exam: ABSENT: carotid bruit, JVD, lymphadenopathy, thyromegaly Respiratory exam: PRESENT: clear to auscultation megan, symmetrical, unlabored, other. ABSENT: rales, rhonchi, wheezes Cardiovascular exam: PRESENT: RRR, +S1. ABSENT: diastolic murmur, rubs, systolic murmur Pulses: PRESENT: normal dorsalis pedis pul Vascular exam: PRESENT: normal capillary refill GI/Abdominal exam: PRESENT: hyperactive bowel sounds, soft, tenderness - bilateral lower quadrants. ABSENT: distended, guarding, mass, organolmegaly, rebound Rectal exam: PRESENT: deferred Extremities exam: PRESENT: full ROM. ABSENT: calf tenderness, clubbing, pedal edema Neurological exam: PRESENT: alert, awake, oriented to person, oriented to place , oriented to time, oriented to situation, CN II-XII grossly intact. ABSENT: motor sensory deficit Psychiatric exam: PRESENT: appropriate affect, normal mood. ABSENT: homicidal ideation, suicidal ideation Skin exam: PRESENT: dry, intact, warm. ABSENT: cyanosis, rash Results Laboratory Results: 01/08/18 05:01 01/08/18 05:01 01/08/18 01/08/18 05:01 05:01 WBC 3.4 L RBC 3.60 L Hgb 9.7 L Hct 30.1 L MCV 84 MCH 27.0 MCHC 32.3 RDW 15.2 H Plt Count 114 L Seg Neutrophils % 51.0 Lymphocytes % 33.8 Monocytes % 12.2 Eosinophils % 2.6 Basophils % 0.4 Absolute Neutrophils 1.7 Absolute Lymphocytes 1.1 Absolute Monocytes 0.4 Absolute Eosinophils 0.1 Absolute Basophils 0.0 Sodium 144.5 Potassium 3.5 L Chloride 112 H Carbon Dioxide 24 Anion Gap 9 BUN 3 L Creatinine 0.40 L Est GFR ( Amer) > 60 Est GFR (Non-Af Amer) > 60 Glucose 83 Calcium 9.1 Total Bilirubin < 0.1 L AST 41 H ALT 56 H Alkaline Phosphatase 104 Total Protein 5.2 L Albumin 2.8 L 01/05/18 05:05 Catheterized Urine Urine Culture - Final Enterococcus Faecalis(Group D) Staph Coagulase Negative Impressions: Abdomen/Pelvis CT 01/03/18 20:46 IMPRESSION: 1. No acute abdominopelvic abnormality. 2. Chronic changes include intrathoracic stomach and fatty liver. No evidence of bowel or urinary obstruction. No acute inflammatory process. Assessment & Plan - Diagnosis (1) Clostridium difficile diarrhea Is this a current diagnosis for this admission?: Yes Plan: The patient has a history of recurrent C. difficile colitis with last infection in April 2017. She is followed by Dr. Salinas as an outpatient and there has been discussion of fecal transplant, although this was several years ago. She also reports that she has been considered for studies in the past. Last colonoscopy was approximately [address] of the abdomen and pelvis was completed; benign and without evidence of inflammatory process. The patient has been admitted to the medical floor. She has been placed on p.o. vancomycin. Infectious disease was consulted; recommend vancomycin 125 mg p.o. every 6 hours 10 days and then begin tapered dosing (please refer to Dr. King's consultation note). Today is day #5. Will support with lactobacillus twice daily. Dr. Salians has been consulted; appreciate his evaluation recommendations. The patient is provided Percocet as needed for pain. Will add Bentyl for abdominal spasms. Have begun weaning morphine. Antiemetics as needed. The patient has been advanced to ESTEBAN diet.. (2) Diabetes mellitus Qualifiers: Diabetes mellitus type: other specified (including CHAO) Diabetes mellitus [facility] insulin use: with superintendent container terminal use Is this a current diagnosis for this admission?: Yes Plan: The patient endorses a history of uncontrolled diabetes mellitus. Accu-Cheks before meals and at bedtime with Humalog for sliding scale coverage. Continue Lantus 30 units twice daily. We will consult the music educator and registered dietitian. (3) Hypotension Qualifiers: Hypotension type: unspecified hypotension type Qualified Code(s): I95.9 - Hypotension, unspecified Is this a current diagnosis for this admission?: Yes Plan: Improved follow IV fluids. Secondary to hypovolemia related to profuse diarrhea. Now with decreased frequency and volume of stools; will discontinue IV fluids. Will monitor closely for need of additional hydration support. Encourage p.o. intake. (4) UTI (urinary tract infection) Qualifiers: Urinary tract infection type: acute cystitis Is this a current diagnosis for this admission?: Yes Plan: Clean-catch urinalysis was positive for UTI. Urine culture is positive for enterococcus faecalis. Will start ampicillin 500 mg q6h x 3 days. (5) Hiatal hernia Is this a current diagnosis for this admission?: Yes Plan: Patient endorses a history of hiatal hernia. Followed by Dr. Salinas; appreciate his evaluation and recommendations. Continue carafate. (6) Smoker Is this a current diagnosis for this admission?: Yes Plan: Smoking cessation is encouraged; nicotine replacement therapies are offered. (7) Hypokalemia Is this a current diagnosis for this admission?: Yes Plan: Secondary to GI losses. Will replace and continue to monitor with daily chemistries. (8) Guaiac positive stools Is this a current diagnosis for this admission?: Yes Plan: Secondary to C. difficile colitis. Continue PPI and carafate. GI has been consulted; appreciate their assistance. (9) Leukopenia Is this a current diagnosis for this admission?: Yes Plan: WBCs are improved today; 9.4 --> 2.7--> 3.4. We will continue to monitor. (10) Thrombocytopenia Is this a current diagnosis for this admission?: Yes Plan: Platelets are improved today; 276--> 95--> 114. Likely secondary to acute infectious process. Holding heparin; encourage patient to be compliant with CYNDEE filemon and SCDs. We will continue to monitor. - Time Time Spent with patient: 25-34 minutes Medications reviewed and adjusted accordingly: Yes Anticipated discharge: Home Within: within 72 hours
[2018-01-08] MEDS: DICYCLOMINE HCL 10 MG CAPSULE PO PRN (16:53)
[2018-01-08] MEDS: INSULIN LISPRO 100 UNIT/ML 3 ML VIAL SUBCUT PRN ×2 (17:48→22:11)
[2018-01-08] MEDS: LACTOBACILLUS ACIDOPHILUS 250 MG TAB PO SCH (17:48)
[2018-01-08] MEDS ORDERED: NORMAL SALINE 1000 ML 1,000 ML IV ONE (20:15)
[2018-01-09] MEDS: VANCOMYCIN HCL INJ 500 MG VIAL PO SCH ×2 (00:27→05:12)
[2018-01-09] MEDS: ALPRAZOLAM 0.5 MG TABLET PO SCH ×2 (00:27→05:11)
[2018-01-09] MEDS: AMPICILLIN TRIHYD 500 MG CAPSULE PO SCH ×2 (00:27→05:11)
[2018-01-09] MEDS: OXYCODONE-ACETAMINOPHEN 5-325 MG TABLET PO PRN ×2 (00:32→05:11)
[2018-01-09] MEDS: DICYCLOMINE HCL 10 MG CAPSULE PO PRN (00:32)
[2018-01-09] MEDS: LANSOPRAZOLE 30 MG TAB.RAP.DR PO SCH (05:11)
[2018-01-09 06:09] LABS: HEMATOCRIT 28.2 % (36.0-47.0); HEMOGLOBIN 9.2 g/dL (12.0-15.5); MEAN CORPUSCULAR HEMOGLOBIN 27.2 pg (27.0-33.4); MEAN CORPUSCULAR HGB CONC 32.7 g/dL (32.0-36.0); MEAN CORPUSCULAR VOLUME 83 fl (80-97); PLATELET COUNT 100 10^3/uL (150-450); RED BLOOD COUNT 3.39 10^6/uL (3.72-5.28); RED CELL DISTRIBUTION WIDTH 15.8 % (11.5-14.0)
[2018-01-09 06:27] LABS: WHITE BLOOD COUNT 2.2 10^3/uL (4.0-10.5)
[2018-01-09 06:31] LABS: ANION GAP 9 (5-19); BLOOD UREA NITROGEN 4 mg/dL (7-20); CALCIUM 8.9 mg/dL (8.4-10.2); CARBON DIOXIDE 26 mmol/L (22-30); CHLORIDE 109 mmol/L (98-107); GLUCOSE 170 mg/dL (75-110); POTASSIUM 3.6 mmol/L (3.6-5.0); SODIUM 143.7 mmol/L (137-145)
[2018-01-09 08:38] VITALS: BP 103/63
[2018-01-09] MEDS ORDERED: ALPRAZOLAM 0.5 MG TABLET PO PRN (09:01)
[2018-01-09] MEDS ORDERED: HYDROCODONE/ACETAMINOPHEN 10-325 MG TABLET PO PRN (09:02)
[2018-01-09] MEDS: INSULIN LISPRO 100 UNIT/ML 3 ML VIAL SUBCUT PRN (09:26)
[2018-01-09] MEDS: LACTOBACILLUS ACIDOPHILUS 250 MG TAB PO SCH (09:33)
[2018-01-09] MEDS: SUCRALFATE 1 GM TABLET PO SCH (09:36)
[2018-01-09] MEDS: POTASSIUM CHLORIDE 10 MEQ TABLET.SA PO SCH (09:38)
[2018-01-09] MEDS: NICOTINE 14 MG/24 HR PATCH.TD24 TD SCH (09:41)
[2018-01-09] MEDS: INSULIN GLARGINE,HUM.REC.ANLOG 300 UNIT/3 ML INSULN.PEN SUBCUT SCH (09:53)
[2018-01-09] MEDS ORDERED: ALPRAZOLAM 0.5 MG TABLET PO SCH (10:00)
--- NOTE | 2018-01-09 16:07 | PDOC DISCHARGE SUMMARY ---
General - Admit/Disc Date/PCP Admission Date/Primary Care Provider: 01/03/18 22:28 Discharge Date: 01/09/18 - Discharge Diagnosis (1) Clostridium difficile diarrhea Is this a current diagnosis for this admission?: Yes Summary: The patient has a history of recurrent C. difficile colitis with last infection in April 2017. She is followed by Dr. Salinas as an outpatient. CT of the abdomen and pelvis was completed; benign and without evidence of inflammatory process. C. difficile PCR was positive, however, C. difficile toxin A and B was negative ; indicating that the patient's active infection has resolved. The patient was admitted to the medical floor and supported with IV maintenance fluids. She was placed on p.o. vancomycin at 250 mg every 6 hours initially. We did consult infectious disease who recommended that the patient be decreased to vancomycin 125 mg p.o. every 6 hours 10 days. The primary care provider and /or senior technical analyst, could consider a pulsed/tapered regimen which may be beneficial: vancomycin 125 mg q6h x 10 days, then 2 times a day for 1 week, then daily for 1 week, then every 2-3 days for another 2 weeks. She was placed on lactobacillus twice daily and Bentyl for abdominal spasms. The patient's pain was initially controlled with a combination of oxycodone and morphine for breakthrough pain. The morphine was deescalated quickly and oxycodone weaned to allow smooth transition to the patient's home narcotic dosing schedule. Dr. Salinas was consulted; the patient is recommended to follow up with him as scheduled. At time of discharge, the patient is in stable condition and tolerating a BRAT diet. She continues to have loose stools, though is continent and desires to be discharged to home. She is provided a prescription for Bentyl, lactobacillus, Imodium, and vancomycin. She is advised to follow up with her primary care provider within [address] Salinas as scheduled. (2) Diabetes mellitus Is this a current diagnosis for this admission?: Yes Summary: The patient presented with a history of uncontrolled diabetes mellitus. She was not on home medications. The brattice builder and registered dietitian for consult. She was managed with Lantus 30 units twice daily with Humalog for sliding scale coverage. The patient was provided prescriptions for a Lantus pen, a Humalog pen, and needles at discharge. She declined need for glucometer, test strips, or lancets. She is advised to follow-up with her primary care provider within 1 week. (3) Hypotension Is this a current diagnosis for this admission?: Yes Summary: Resolved; secondary to hypovolemia related to profuse diarrhea. She was supported with IV fluids. Once tolerating a p.o. diet her fluids were decreased and eventually stop. She is now maintaining her hydration status with p.o. intake alone. (4) UTI (urinary tract infection) Is this a current diagnosis for this admission?: Yes Summary: Clean-catch urinalysis was positive for UTI. Urine culture is positive for Enterococcus faecalis. The patient was placed on ampicillin 500 mg every 6 hours for 3 days. She is provided a prescription to complete her antibiotic course after discharge. (5) Hiatal hernia Is this a current diagnosis for this admission?: Yes Summary: Patient is followed by Dr. Salinas as an outpatient; appreciate his evaluation recommendations while inpatient. No recommendations for interventions at this time other than to continue the patient's home dose Carafate. Recommend following up with Dr. Salinas as scheduled. (6) Smoker Is this a current diagnosis for this admission?: Yes Summary: Smoking cessation was encouraged. She was provided a prescription for NicoDerm on discharge. (7) Hypokalemia Is this a current diagnosis for this admission?: Yes Summary: Resolved; secondary to GI losses. (8) Guaiac positive stools Is this a current diagnosis for this admission?: Yes Summary: Secondary to C. difficile colitis. Hgb stable. Continue PPI and carafate. GI was consulted; Dr. Salinas declined need for endoscopy while inpatient. Patient is instructed to continue PPI medication and to follow up with Dr. Salinas as scheduled. (9) Leukopenia Is this a current diagnosis for this admission?: Yes Summary: Likely secondary to acute infectious process versus medication Vancomycin reaction. WBC trended down from 9.4 to 2.2 Differential is unconcerning. Patient is afebrile and vital signs stable. Recommend repeat CBC at follow up visit with PCP. (10) Thrombocytopenia Is this a current diagnosis for this admission?: Yes Summary: Platelets initially declined from 276 to 95, now stable at 100. Likely secondary to acute infectious process. Recommend repeat CBC at follow up visit with PCP. - Additional Information Resuscitation Status: Full Code Discharge Diet: Diabetic, Other (Comments) - Advance slowly as tolerated Discharge Activity: Activity As Tolerated, Balance Activity w/Rest, No Lifting Over 10 Pounds Prescriptions: Ampicillin Trihydrate [Princepen 500 mg Capsule] 500 mg PO Q6 #10 capsule Dicyclomine HCl [Bentyl 10 mg Capsule] 10 mg PO QIDP PRN #120 capsule PRN Reason: Insulin Glargine,Hum.rec.anlog [Lantus Insulin 100 Unit/mL] 30 unit SUBCUT Q12 # 60 insuln.pen Insulin Lispro [Humalog Kwikpen U-100] 100 unit SQ ACHS #1 insuln.pen Lactobacillus Acidophilus [Bacid 250 mg Tablet] 500 mg PO BID #60 tab Lansoprazole [Prevacid 30 mg Odt Tablet] 30 mg PO Q6AM #30 tab.rap Loperamide HCl [Imodium 2 mg Capsule] 2 mg PO Q6HP PRN #21 cap PRN Reason: Nicotine [Nicoderm 14 mg/24 Hr Transdermal Patch] 1 each TD DAILY #14 patch.td24 Pen Needle, Diabetic [Insulin Pen Needle] 1 each MC ASDIR PRN #240 dis.needle PRN Reason: Vancomycin HCl [Vancocin HCl] 125 mg PO Q6H #20 capsule Home Medications: Etanercept [Enbrel] 50 mg SQ TH@1000 01/04/18 Sucralfate [Carafate 1 gm Tablet] 1 gm PO ACHS 01/04/18 Zolpidem Tartrate [Ambien] 10 mg PO HSP PRN 01/04/18 Alprazolam [Xanax] 1 mg PO TID #0 01/09/18 Ampicillin Trihydrate [Princepen 500 mg Capsule] 500 mg PO Q6 #10 capsule Dicyclomine HCl [Bentyl 10 mg Capsule] 10 mg PO QIDP PRN #120 capsule 01/09/18 Hydrocodone/Acetaminophen [Spring 10-325 mg Tablet] 1 tab PO Q6HP PRN tablet Insulin Glargine,Hum.rec.anlog [Lantus Insulin 100 Unit/mL] 30 unit SUBCUT Q12 # 60 insuln.pen 01/09/18 Insulin Lispro [Humalog Kwikpen U-100] 100 unit SQ ACHS #1 insuln.pen 01/09/18 Lactobacillus Acidophilus [Bacid 250 mg Tablet] 500 mg PO BID #60 tab 01/09/18 Lansoprazole [Prevacid 30 mg Odt Tablet] 30 mg PO Q6AM #30 tab. 01/09/18 Loperamide HCl [Imodium 2 mg Capsule] 2 mg PO Q6HP PRN #21 cap 01/09/18 Nicotine [Nicoderm 14 mg/24 Hr Transdermal Patch] 1 each TD DAILY #14 patch.td24 01/09/18 Pen Needle, Diabetic [Insulin Pen Needle] 1 each MC ASDIR PRN #240 dis.needle Sucralfate [Carafate 1 gm Tablet] 1 gm PO TID tablet 01/09/18 Vancomycin HCl [Vancocin HCl] 125 mg PO Q6H #20 capsule 01/09/18 History of Present Illness History of Present Illness: Per H&P by Dr. Vila: JAMES MORRIS is a 62 year old female with history of recurrent C. difficile, UGI (post EGD in 07/2017 per patient) and type 1&2 diabetes mellitus was admitted with above-mentioned complaints. The patient presented to the ED on 01/01/2018 complaining of nausea, vomiting and diarrhea. Her blood sugar was 493 so she was treated and discharged home. She returns today complaining of diffuse abdominal "ache" which gets very intense at times and multiple bouts of diarrhea with black stool but no hematochezia for about 6 days. She denies any nausea or vomiting this time and there was no reported fever or chills. She said that she took Excedrin for the pain with no relief. She also complains of decreased urine output for the last several days. She denies any chest pain but complains of feeling short of breath when her abdominal pain worsens. She denies any cough, recent antibiotic use, sick contact or any change in her food intake. She had a colonoscopy about 3 years ago which showed polyps. She said that she has esophageal stricture and that her esophagus has been stretched several times. She usually follows with Dr. Salinas of GI and she has a follow-up appointment with him next month. In the ED, her temperature was 97.8, heart rate 117 (down to 88), respiratory rate 16, blood pressure 79/49 (up to 101/61 after fluid resuscitation) with oxygen saturation of 98% on room air. Her WBC was 9.4 and her hemoglobin was 14.2. Her blood glucose was 575 with anion gap of 19. Her liver enzymes were elevated at she had positive stool occult blood with positive stool for C. difficile. An abdominal CAT scan was done which showed chronic intrathoracic stomach and fatty liver. She received 1 L of normal saline and another liter of LR in addition to 250 mg oral vancomycin 1. Physical Exam Vital Signs: Temp Pulse Resp BP Pulse Ox 97.4 F 79 12 103/63 97 01/09/18 08:00 01/09/18 08:00 01/09/18 08:00 01/09/18 08:00 01/09/18 08:00 Intake & Output 01/08/18 01/09/18 01/10/18 06:59 06:59 06:59 Intake Total 2244 2908 Output Total 1300 2200 Balance 944 708 Weight 51.6 kg 61.1 kg General appearance: PRESENT: no acute distress, disheveled, well-developed, well -nourished Head exam: PRESENT: atraumatic, normocephalic Eye exam: PRESENT: conjunctiva pink, EOMI, PERRLA. ABSENT: scleral icterus Ear exam: PRESENT: normal external ear exam Mouth exam: PRESENT: moist, tongue midline Neck exam: ABSENT: carotid bruit, JVD, lymphadenopathy, thyromegaly Respiratory exam: PRESENT: clear to auscultation megan, symmetrical, unlabored. ABSENT: rales, rhonchi, wheezes Cardiovascular exam: PRESENT: RRR, +S1, +S2. ABSENT: diastolic murmur, rubs, systolic murmur Pulses: PRESENT: normal dorsalis pedis pul Vascular exam: PRESENT: normal capillary refill GI/Abdominal exam: PRESENT: normal bowel sounds, soft, tenderness - mild bilateral lower quadrant tenderness. ABSENT: distended, guarding, mass, organolmegaly, rebound Rectal exam: PRESENT: deferred Extremities exam: PRESENT: full ROM. ABSENT: calf tenderness, clubbing, pedal edema Neurological exam: PRESENT: alert, awake, oriented to person, oriented to place , oriented to time, oriented to situation, CN II-XII grossly intact. ABSENT: motor sensory deficit Psychiatric exam: PRESENT: appropriate affect, normal mood. ABSENT: homicidal ideation, suicidal ideation Skin exam: PRESENT: dry, intact, warm. ABSENT: cyanosis, rash Results Laboratory Results: 01/09/18 04:48 01/09/18 04:48 01/09/18 01/09/18 04:48 04:48 WBC 2.2 L D RBC 3.39 L Hgb 9.2 L Hct 28.2 L MCV 83 MCH 27.2 MCHC 32.7 RDW 15.8 H Plt Count 100 L Sodium 143.7 Potassium 3.6 Chloride 109 H Carbon Dioxide 26 Anion Gap 9 BUN 4 L Creatinine 0.40 L Est GFR ( Amer) > 60 Est GFR (Non-Af Amer) > 60 Glucose 170 H Calcium 8.9 01/06/18 19:19 Stool - Stool Clostridium difficile Toxin A&B (M) - Final 01/05/18 05:05 Catheterized Urine Urine Culture - Final Enterococcus Faecalis(Group D) Staph Coagulase Negative Impressions: Abdomen/Pelvis CT 01/03/18 20:46 IMPRESSION: 1. No acute abdominopelvic abnormality. 2. Chronic changes include intrathoracic stomach and fatty liver. No evidence of bowel or urinary obstruction. No acute inflammatory process. Qualifiers - * PATIENT BEING DISCHARGED WITH ANY OF THE FOLLOWING DIAGNOSIS: No Plan Discharge Plan: Discharge to home with home health nursing. Follow-up with primary care provider on 01/15/18. Follow-up with Dr. Salinas's office as scheduled. Time Spent: Less than 30 Minutes
== END 2018-01-09 11:15 | disposition home or self-care (01) | DRG 372 ==
LOC: ER 18:58 → EH 22:28 → 4S 01-04
PROVIDERS: ADMIT Internal Medicine Geriatric Medicine; ATTEND Internal Medicine Geriatric Medicine
DX: A04.71 Enterocolitis due to Clostridium difficile, recurrent (principal); N39.0 Urinary tract infection, site not specified; E11.65 Type 2 diabetes mellitus with hyperglycemia; E86.1 Hypovolemia; I95.89 Other hypotension; B95.2 Enterococcus as the cause of diseases classified elsewhere; E87.6 Hypokalemia; D72.819 Decreased white blood cell count, unspecified; D69.6 Thrombocytopenia, unspecified; K22.2 Esophageal obstruction; I10 Essential (primary) hypertension; J44.9 Chronic obstructive pulmonary disease, unspecified; M54.9 Dorsalgia, unspecified; M19.90 Unspecified osteoarthritis, unspecified site; F17.210 Nicotine dependence, cigarettes, uncomplicated; K44.9 Diaphragmatic hernia without obstruction or gangrene; L40.9 Psoriasis, unspecified; Z79.4 Long term (current) use of insulin; Z79.891 Long term (current) use of opiate analgesic; Z86.010 Personal history of colon polyps; Z98.51 Tubal ligation status
CPT/HCPCS: 36415; 74177; 80048; 80053; 81001; 82272; 82962; 83735; 84100; 85025; 85027; 85610; 86850; 86900; 86901; 87086; 87088; 87186; 87324; 87493; 96365; 96375; 99285; J1815; J2270; J3010; J3370; J3490; J7030; J7040; J7120

== ENCOUNTER 2018-01-22 11:50 | Inpatient (IN) | payer MEDICAID ==
[2018-01-22] MEDS ORDERED: NORMAL SALINE 1000 ML 1,000 ML IV ONE (12:10)
[2018-01-22] MEDS ORDERED: ONDANSETRON HCL INJ/PF 4 MG/2 ML SDV IV ONE ×2 (12:10→13:11)
[2018-01-22] MEDS ORDERED: OXYCODONE-ACETAMINOPHEN 5-325 MG TABLET PO ONE (12:10)
[2018-01-22] MEDS ORDERED: ONDANSETRON 4 MG TAB.RAPDIS PO ONE (12:16)
--- NOTE | 2018-01-22 12:16 | ER Document Report ---
ED Medical Screen (RME) - General Chief Complaint: Vomiting Stated Complaint: VOMITING Time Seen by Provider: 01/22/18 12:05 Notes: Patient is a 62-year-old female who presents with worsening diffuse abdominal cramping and large amounts of watery diarrhea. She was treated with oral vancomycin for C. difficile a few weeks ago, but her diarrhea never resolved. PE: Tachycardia, diffuse abdominal tenderness I have greeted and performed a rapid initial assessment of this patient. A comprehensive ED assessment and evaluation of the patient, analysis of test results and completion of the medical decision making process will be conducted by additional ED providers. TRAVEL OUTSIDE OF THE [place] IN LAST 30 DAYS: No - Related Data Allergies/Adverse Reactions: No Known Drug Allergies Allergy (Mild, Verified 01/03/18 18:59) Past Medical History - Social History Chew tobacco use (# tins/day): No Frequency of alcohol use: None Drug Abuse: None Family history: None - pt adopted - Past Medical History Cardiac Medical History: Reports: Hx Hypertension Denies: Hx Congestive Heart Failure, Hx DVT, Hx Heart Attack, Hx Hypercholesterolemia, Hx Pulmonary Embolism Pulmonary Medical History: Reports: Hx Bronchitis, Hx COPD, Hx Pneumonia Denies: Hx Asthma Neurological Medical History: Reports: Hx Migraine. Denies: Hx Cerebrovascular Accident, Hx Seizures Endocrine Medical History: Reports: Hx Diabetes Mellitus Type 1. Denies: Hx Diabetes Mellitus Type 2, Hx Hyperthyroidism, Hx Hypothyroidism Renal/ Medical History: Denies: Hx Peritoneal Dialysis Malignancy Medical History: Reports: Hx Ovarian Cancer, Hx Skin Cancer GI Medical History: Reports: Hx Gastroesophageal Reflux Disease, Hx Hiatal Hernia, Hx Ulcer. Denies: Hx Cirrhosis, Hx Hepatitis, Hx Pancreatitis Musculoskeltal Medical History: Reports Hx Arthritis, Reports Hx Multiple Sclerosis, Reports Hx Musculoskeletal Deformity, Reports Hx Musculoskeletal Trauma Skin Medical History: Reports Hx Psoriasis Psychiatric Medical History: Reports: Hx Anxiety, Hx Depression Traumatic Medical History: Reports: Hx Fractures - Bilateral humerus Infectious Medical History: Reports: Hx C-Diff. Denies: Hx Hepatitis Past Surgical History: Reports: Hx Genitourinary Surgery - Bladder, Hx Orthopedic Surgery - Right wrist, Hx Tubal Ligation, Other - cataract sx bilaterally.. Denies: Hx Hysterectomy, Hx Mastectomy, Hx Open Heart Surgery, Hx Pacemaker - Immunizations Immunizations up to date: Yes Hx Diphtheria, Pertussis, Tetanus Vaccination: Yes History of Influenza Vaccine for 06/2017 - 11/2017 Season: Yes Influenza Administration Date for 06/2017 - 11/2017 Season: 06/15/17 Physical Exam - Vital signs Vitals: Temp Pulse Resp BP Pulse Ox 99.5 F 135 H 22 H 144/94 H 98 01/22/18 11:59 01/22/18 11:59 01/22/18 11:59 01/22/18 11:59 01/22/18 11:59 Course - Vital Signs Vital signs: Temp Pulse Resp BP Pulse Ox 99.5 F 135 H 22 H 144/94 H 98 01/22/18 11:59 01/22/18 11:59 01/22/18 11:59 01/22/18 11:59 01/22/18 11:59 - Laboratory Result Diagrams: 01/22/18 13:21 01/22/18 13:21 Laboratory results interpreted by me: 01/22/18 01/22/18 13:21 13:21 WBC 12.5 H Hgb 11.6 L Hct 35.9 L MCH 26.3 L RDW 16.0 H Seg Neutrophils % 84.5 H Lymphocytes % 5.2 L Absolute Neutrophils 10.6 H Potassium 3.4 L Chloride 97 L Glucose 576 H* Direct Bilirubin 0.5 H Alkaline Phosphatase 229 H Lipase 17.9 L Doctor's Discharge - Discharge Clinical Impression: C. difficile colitis Condition: Good Disposition: ADMITTED INPATIENT
[2018-01-22] MEDS ORDERED: ONDANSETRON 4 MG TAB.RAPDIS ONE (12:18)
[2018-01-22] MEDS ORDERED: VANCOMYCIN HCL INJ 1000 MG VIAL IV ONE (13:10)
[2018-01-22] MEDS ORDERED: HYDROMORPHONE HCL INJ/PF 2 MG/ML AMPULE IV ONE (13:10)
--- NOTE | 2018-01-22 13:11 | ER Document Report ---
ED GI/ - General Chief Complaint: Vomiting Stated Complaint: VOMITING Time Seen by Provider: 01/22/18 12:05 Notes: 62-year-old female patient. Recently hospitalized for C. difficile. Has been on oral vancomycin. Was hospitalized for the same. Complaining of diarrhea and abdominal pain. No fever. No chills. Feeling very dehydrated. Site cannot seem to keep anything in her. Presented to the emergency department. While in the triage waiting room began having stools all over the waiting room. Patient was brought back to her room. TRAVEL OUTSIDE OF THE [place] IN LAST 30 DAYS: No - HPI Patient complains to provider of: Abdominal pain, Diarrhea Timing/Duration: Constant, Worse Quality of pain: Achy Severity at maximum: Moderate Severity in ED: Moderate - Related Data Allergies/Adverse Reactions: No Known Drug Allergies Allergy (Mild, Verified 01/03/18 18:59) Past Medical History - General Information source: Patient - Social History Smoking Status: Current Every Day Smoker Chew tobacco use (# tins/day): No Frequency of alcohol use: None Drug Abuse: None Lives with: Family Family History: Reviewed & Not Pertinent Patient has suicidal ideation: No Patient has homicidal ideation: No - Past Medical History Cardiac Medical History: Reports: Hx Hypertension Denies: Hx Congestive Heart Failure, Hx DVT, Hx Heart Attack, Hx Hypercholesterolemia, Hx Pulmonary Embolism Pulmonary Medical History: Reports: Hx Bronchitis, Hx COPD, Hx Pneumonia Denies: Hx Asthma Neurological Medical History: Reports: Hx Migraine. Denies: Hx Cerebrovascular Accident, Hx Seizures Endocrine Medical History: Reports: Hx Diabetes Mellitus Type 1. Denies: Hx Diabetes Mellitus Type 2, Hx Hyperthyroidism, Hx Hypothyroidism Renal/ Medical History: Denies: Hx Peritoneal Dialysis Malignancy Medical History: Reports: Hx Ovarian Cancer, Hx Skin Cancer GI Medical History: Reports: Hx Gastroesophageal Reflux Disease, Hx Hiatal Hernia, Hx Ulcer. Denies: Hx Cirrhosis, Hx Hepatitis, Hx Pancreatitis Musculoskeltal Medical History: Reports Hx Arthritis, Reports Hx Multiple Sclerosis, Reports Hx Musculoskeletal Deformity, Reports Hx Musculoskeletal Trauma Skin Medical History: Reports Hx Psoriasis Psychiatric Medical History: Reports: Hx Anxiety, Hx Depression Traumatic Medical History: Reports: Hx Fractures - Bilateral humerus Infectious Medical History: Reports: Hx C-Diff. Denies: Hx Hepatitis Past Surgical History: Reports: Hx Genitourinary Surgery - Bladder, Hx Orthopedic Surgery - Right wrist, Hx Tubal Ligation, Other - cataract sx bilaterally.. Denies: Hx Hysterectomy, Hx Mastectomy, Hx Open Heart Surgery, Hx Pacemaker - Immunizations Immunizations up to date: Yes Hx Diphtheria, Pertussis, Tetanus Vaccination: Yes Hx Pneumococcal Vaccination: 06/15/13 Review of Systems - Review of Systems Constitutional: Malaise, Weakness. denies: Fever EENT: denies: Ear pain, Throat pain, Mouth pain Cardiovascular: Palpitations, Heart racing, Dizziness, Lightheaded. denies: Chest pain, Syncope Respiratory: denies: Cough, Hurts to breathe, Short of breath, Wheezing Gastrointestinal: Abdominal pain, Diarrhea, Nausea. denies: Vomiting Genitourinary: denies: Burning, Dysuria, Discharge Musculoskeletal: denies: Back pain, Gout, Joint pain Skin: denies: Dryness, Lesions, Rash Hematologic/Lymphatic: denies: Anemia, Blood clots, Easy bleeding, Easy bruising Neurological/Psychological: denies: Confusion, Weakness, Numbness Physical Exam - Vital signs Vitals: Temp Pulse Resp BP Pulse Ox 99.5 F 135 H 22 H 144/94 H 98 01/22/18 11:59 01/22/18 11:59 01/22/18 11:59 01/22/18 11:59 01/22/18 11:59 Interpretation: Tachycardic - General General appearance: Appears well, Alert - HEENT Head: Normocephalic, Atraumatic Eyes: Normal Pupils: PERRL Mucous membranes: Dry - Respiratory Respiratory status: No respiratory distress Chest status: Nontender Breath sounds: Normal Chest palpation: Normal - Cardiovascular Rhythm: Tachycardia Heart sounds: Normal auscultation Murmur: No - Abdominal Inspection: Normal Distension: No distension Bowel sounds: Hyperactive Tenderness: Tender - Diffuse tenderness Organomegaly: No organomegaly - Back Back: Normal, Nontender - Extremities General upper extremity: Normal inspection, Nontender, Normal color, Normal ROM , Normal temperature General lower extremity: Normal inspection, Nontender, Normal color, Normal ROM , Normal temperature, Normal weight bearing. No: Alecia's sign - Neurological Neuro grossly intact: Yes Cognition: Normal Orientation: AAOx4 Jose Roberto Coma Scale Eye Opening: Spontaneous [place] Coma Scale Verbal: Oriented [place] Coma Scale Motor: Obeys Commands [place] Coma Scale Total: 15 Speech: Normal Motor strength normal: LUE, RUE, LLE, RLE Sensory: Normal - Psychological Associated symptoms: Normal affect, Normal mood - Skin Skin Temperature: Warm Skin Moisture: Dry Skin Color: Normal Course - Re-evaluation Re-evalutation: 01/22/18 13:46 Uncontrollable diarrhea even while in the waiting room. History of C. difficile. Tachycardic with heart rate of 120. At this time will give IV fluids, Zofran, vancomycin. Anticipate patient will likely need to be admitted to the hospital. ct scan ordered. 01/22/18 13:47 01/22/18 15:17 CT scan unremarkable. Patient obviously with positive C. difficile. Tachycardic but doing better at this time. Will admit to the hospitalist. Dr. Lopez to admit. - Vital Signs Vital signs: Temp Pulse Resp BP Pulse Ox 99.5 F 135 H 22 H 144/94 H 98 01/22/18 11:59 01/22/18 11:59 01/22/18 11:59 01/22/18 11:59 01/22/18 11:59 - Laboratory Result Diagrams: 01/22/18 13:21 01/22/18 13:21 Laboratory results interpreted by me: 01/22/18 01/22/18 13:21 13:21 WBC 12.5 H Hgb 11.6 L Hct 35.9 L MCH 26.3 L RDW 16.0 H Seg Neutrophils % 84.5 H Lymphocytes % 5.2 L Absolute Neutrophils 10.6 H Potassium 3.4 L Chloride 97 L Glucose 576 H* Direct Bilirubin 0.5 H Alkaline Phosphatase 229 H Lipase 17.9 L Discharge - Discharge Clinical Impression: C. difficile colitis Condition: Good Disposition: ADMITTED INPATIENT Admitting Provider: Hospitalist - Dr. Lopez Unit Admitted: Telemetry Referrals: GIUSEP[facility] WHITE MD [Primary Care Provider] - Follow up as needed
[2018-01-22 13:44] LABS: ABSOLUTE LYMPHOCYTES (AUTO) 0.7 10^3/uL (0.5-4.7); ABSOLUTE MONOCYTES (AUTO) 1.3 10^3/uL (0.1-1.4); ABSOLUTE NEUT (AUTO) 10.6 10^3/uL (1.7-8.2); BASOPHILS % (AUTO) 0.1 % (0-2); HEMATOCRIT 35.9 % (36.0-47.0); HEMOGLOBIN 11.6 g/dL (12.0-15.5); LYMPHOCYTES % (AUTO) 5.2 % (13-45); MEAN CORPUSCULAR HEMOGLOBIN 26.3 pg (27.0-33.4); MEAN CORPUSCULAR HGB CONC 32.3 g/dL (32.0-36.0); MEAN CORPUSCULAR VOLUME 82 fl (80-97); MONOCYTES % (AUTO) 10.2 % (3-13); PLATELET COUNT 411 10^3/uL (150-450); RED BLOOD COUNT 4.41 10^6/uL (3.72-5.28); SEGMENTED NEUTROPHILS % (AUTO) 84.5 % (42-78); TOTAL CELLS COUNTED % (AUTO) 100 %; WHITE BLOOD COUNT 12.5 10^3/uL (4.0-10.5)
[2018-01-22 14:35] LABS: ALANINE AMINOTRANSFERASE 18 U/L (9-52); ALBUMIN 3.6 g/dL (3.5-5.0); ALKALINE PHOSPHATASE 229 U/L (38-126); ASPARTATE AMINO TRANSFERASE 14 U/L (14-36); BILIRUBIN,DIRECT 0.5 mg/dL (0.0-0.4); BILIRUBIN,TOTAL 0.7 mg/dL (0.2-1.3); BLOOD UREA NITROGEN 10 mg/dL (7-20); CARBON DIOXIDE 22 mmol/L (22-30); CHLORIDE 97 mmol/L (98-107); LIPASE 17.9 U/L (23-300); POTASSIUM 3.4 mmol/L (3.6-5.0)
[2018-01-22] MEDS: NORMAL SALINE 1000 ML 1,000 ML IV PRN ×2 (14:40→15:22)
[2018-01-22 14:43] LABS: ANION GAP 19 (5-19)
[2018-01-22 14:47] LABS: GLUCOSE 576 mg/dL (75-110)
[2018-01-22] MEDS ORDERED: INSULIN REG, HUMAN 100 UNIT/ML 3 ML VIAL (PYX) SUBCUT ONE (14:48)
--- NOTE | 2018-01-22 15:12 | RADIOLOGY REPORT (SQ) ---
EXAM DESCRIPTION: CT ABD/PELVIS WITH IV ONLY COMPLETED DATE/TIME: 01/22/2018 3:01 pm REASON FOR STUDY: diffuse abdominal pain, N/V COMPARISON: 01/03/2018 TECHNIQUE: CT scan of the abdomen and pelvis performed using helical scanning technique with dynamic intravenous contrast injection. No oral contrast. Images reviewed with lung, soft tissue, and bone windows. Reconstructed coronal and sagittal MPR images reviewed. Delayed images for evaluation of the urinary system also acquired. All images stored on PACS. All CT scanners at this facility use dose modulation, iterative reconstruction, and/or weight based d osing when appropriate to reduce radiation dose to as low as reasonably achievable (ALARA). [facility]: Dose Right [facility]: CareDose [facility]: Dose Right [facility]: Teradose 4D [facility]: Videostir CONTRAST TYPE AND DOSE: contrast/concentration: Isovue 370.00 mg/ml; Total Contrast Delivered: 58.0 ml; Total Saline Delivered: 65.0 ml RENAL FUNCTION: GFR > 60. RADIATION DOSE: CT Rad equipment meets quality standard of care and radiation dose reduction techniq ues were employed. CTDIvol: 4.8 - 5.4 mGy. DLP: 516 mGy-cm.. LIMITATIONS: None. FINDINGS: LOWER CHEST: Large hiatal hernia. Intrathoracic stomach. LIVER: Normal size. No masses. No dilated ducts. SPLEEN: Normal size. No focal lesions. PANCREAS: No masses. No significant calcifications. No adjacent inflammation or peripancreatic fluid collections. Pancreatic duct not dilated. GALLBLADDER: No identified stones by CT criteria. No inflammatory changes to suggest cholecystitis. ADRENAL GLANDS: No significant masses or asymmetry. RIGHT KIDNEY AND URETER: No solid masses. No significant calcifications. No hydronephrosis or hyd roureter. LEFT KIDNEY AND URETER: No solid masses. No significant calcifications. No hydronephrosis or hydr oureter. AORTA AND VESSELS: No aneurysm. No dissection. Renal arteries, SMA, celiac without stenosis. RETROPERITONEUM: No retroperitoneal adenopathy, hemorrhage or masses. BOWEL AND PERITONEAL CAVITY: No masses or inflammatory changes. No free fluid or peritoneal masses. APPENDIX: Normal. PELVIS: No mass. No free fluid. Normal bladder. ABDOMINAL WALL: No masses. No hernias. BONES: Chronic compression fractures T12 and L2. OTHER: No other significant finding. IMPRESSION: No acute findings in the abdomen or pelvis. TECHNICAL DOCUMENTATION: JOB ID: [id number] Quality ID # [id number]: Final reports with documentation of one or more dose reduction techniques (e.g., Au tomated exposure control, adjustment of the mA and/or kV according to patient size, use of iterative reconstruction technique) 2010 [employer]- All Rights Reserved Reading location - IP/workstation name: [facility]
[2018-01-22] MEDS ORDERED: METRONIDAZOLE 500 MG/NS RTU 100 ML IV ONE (15:16)
[2018-01-22] MEDS ORDERED: VANCOMYCIN HCL INJ 500 MG VIAL PO ONE (15:16)
[2018-01-22] MEDS ORDERED: ACETAMINOPHEN 325 MG TABLET PO PRN (15:40)
[2018-01-22] MEDS ORDERED: DEXTROSE 40% GEL 15 GM TUBE PO PRN ×2 (15:49)
[2018-01-22] MEDS ORDERED: GLUCAGON,HUMAN RECOMB 1 MG INJ IM PRN (15:49)
[2018-01-22] MEDS ORDERED: DEXTROSE 50%-WATER 25 GM/50 ML DISP.SYRIN IV PRN ×2 (15:49)
[2018-01-22] MEDS ORDERED: NICOTINE 21 MG/24 HR PATCH.TD24 TD ONE (15:52)
[2018-01-22] MEDS ORDERED: METOPROLOL TARTRATE PF/INJ 5 MG/5 ML SDV IV PRN (16:18)
[2018-01-22] MEDS ORDERED: IPRATROPIUM/ALBUTEROL 0.5-2.5 MG/3 ML AMPUL NEB PRN (16:20)
--- NOTE | 2018-01-22 16:20 | PDOC H&P ---
History of Present Illness Admission Date/PCP: 01/22/18 15:47 GIUSEPPE WHITE MD Patient complains of: Abdominal pain and diarrhea History of Present Illness: JAMES MORRIS is a 62 year old female recently discharged following an episode of C. difficile colitis. She was discharged on oral vancomycin, completed that course, and continued to have diarrhea. She went back to her occupational therapy co director who gave her a cup for a sample, but she was unable to make it to follow-up due to severe abdominal pain, nausea, vomiting, and intractable diarrhea. She thinks she has had some fevers and chills but is not sure. Says she has noticed some blood in her diarrhea. States she has been unable to keep anything down for the last 2 days. Past Medical History Cardiac Medical History: Reports: Hypertension Denies: Congestive Heart Failure, DVT, Myocardial Infarction, Hyperlipidema, Pulmonary Embolism Pulmonary Medical History: Reports: Bronchitis, Chronic Obstructive Pulmonary Disease (COPD), Pneumonia Denies: Asthma Neurological Medical History: Reports: Migraine Denies: Seizures Endocrine Medical History: Reports: Diabetes Mellitus Type 1 Denies: Diabetes Mellitus Type 2, Hyperthyroidism, Hypothyroidism Malignancy Medical History: Reports: Ovarian Cancer, Skin Cancer GI Medical History: Reports: Gastroesophageal Reflux Disease, Hiatal Hernia, Other - C. difficile colitis Denies: Cirrhosis, Hepatitis Musculoskeltal Medical History: Reports: Arthritis Skin Medical History: Reports: Psoriasis Psychiatric Medical History: Reports: Depression Hematology: Reports: Anemia Denies: Hemophilia, Sickle Cell Disease Infectious Medical History: Reports: Clostridium Difficile Past Surgical History Past Surgical History: Reports: Orthopedic Surgery - Right wrist, Tubal Ligation , Other - cataract sx bilaterally. Denies: Amputation, Hysterectomy, Mastectomy, Pacemaker Social History Information Source: Patient, [facility] Records Lives with: Family Smoking Status: Current Every Day Smoker Frequency of Alcohol Use: None Hx Recreational Drug Use: No Drugs: None Hx Prescription Drug Abuse: No - Advance Directive Resuscitation Status: Full Code Family History Family History: Other - Unknown she is adopted Parental Family History Reviewed: No Children Family History Reviewed: No Sibling(s) Family History Reviewed.: No Medication/Allergy Home Medications: Etanercept [Enbrel] 50 mg SQ TH@1000 01/04/18 Sucralfate [Carafate 1 gm Tablet] 1 gm PO ACHS 01/04/18 Zolpidem Tartrate [Ambien] 10 mg PO HSP PRN 01/04/18 Alprazolam [Xanax] 1 mg PO TID #0 01/09/18 Ampicillin Trihydrate [Princepen 500 mg Capsule] 500 mg PO Q6 #10 capsule Dicyclomine HCl [Bentyl 10 mg Capsule] 10 mg PO QIDP PRN #120 capsule 01/09/18 Hydrocodone/Acetaminophen [Ostrander 10-325 mg Tablet] 1 tab PO Q6HP PRN tablet Insulin Glargine,Hum.rec.anlog [Lantus Insulin 100 Unit/mL] 30 unit SUBCUT Q12 # 60 insuln.pen 01/09/18 Insulin Lispro [Humalog Kwikpen U-100] 100 unit SQ ACHS #1 insuln.pen 01/09/18 Lactobacillus Acidophilus [Bacid 250 mg Tablet] 500 mg PO BID #60 tab 01/09/18 Lansoprazole [Prevacid 30 mg Odt Tablet] 30 mg PO Q6AM #30 tab.rap.dr 01/09/18 Loperamide HCl [Imodium 2 mg Capsule] 2 mg PO Q6HP PRN #21 cap 01/09/18 Nicotine [Nicoderm 14 mg/24 Hr Transdermal Patch] 1 each TD DAILY #14 patch.td24 01/09/18 Pen Needle, Diabetic [Insulin Pen Needle] 1 each MC ASDIR PRN #240 dis.needle Sucralfate [Carafate 1 gm Tablet] 1 gm PO TID tablet 01/09/18 Vancomycin HCl [Vancocin HCl] 125 mg PO Q6H #20 capsule 01/09/18 Allergies/Adverse Reactions: No Known Drug Allergies Allergy (Mild, Verified 01/03/18 18:59) Review of Systems All systems: reviewed and no additional remarkable complaints except as stated Physical Exam Vital Signs: Temp Pulse Resp BP Pulse Ox 99.5 F 135 H 22 H 144/94 H 98 01/22/18 11:59 01/22/18 11:59 01/22/18 11:59 01/22/18 11:59 01/22/18 11:59 General appearance: PRESENT: mild distress Respiratory exam: PRESENT: clear to auscultation megan Cardiovascular exam: PRESENT: tachycardia GI/Abdominal exam: PRESENT: distended, firm, hyperactive bowel sounds, soft, tenderness - Recently Neurological exam: PRESENT: alert Psychiatric exam: PRESENT: anxious Skin exam: PRESENT: warm Results Impressions: Abdomen/Pelvis CT 01/22/18 12:09 IMPRESSION: No acute findings in the abdomen or pelvis. Assessment & Plan - Diagnosis (1) C. difficile colitis Is this a current diagnosis for this admission?: Yes Plan: I find it somewhat odd that for the second time her CT scan is entirely benign. Clinically her abdomen is exquisitely tender and she has diarrhea, C. difficile toxin is positive as I would expect in someone with a recent infection. I will treat her with oral vancomycin, IV Flagyl, and consult gastroenterology who follows her as an outpatient. Put her on a clear liquid diet, keep her hydrated, her labs (2) Benzodiazepine dependence, continuous Is this a current diagnosis for this admission?: Yes (3) Hyperosmolar non-ketotic state in patient with type 2 diabetes mellitus Is this a current diagnosis for this admission?: Yes Plan: continue her Lantus at a reduced dose and cover with sliding scale insulin (4) Hypertension Qualifiers: Hypertension type: essential hypertension Qualified Code(s): I10 - Essential (primary) hypertension Is this a current diagnosis for this admission?: Yes Plan: Continue home medications and provide as needed IV meds (5) Smoker Is this a current diagnosis for this admission?: Yes Plan: Nicotine replacement (6) COPD (chronic obstructive pulmonary disease) Qualifiers: COPD type: unspecified COPD Qualified Code(s): J44.9 - Chronic obstructive pulmonary disease, unspecified Is this a current diagnosis for this admission?: Yes Plan: Stable. As needed nebulizers.
[2018-01-22] MEDS: HYDROMORPHONE HCL INJ/PF 2 MG/ML AMPULE IV PRN ×3 (16:42→22:10)
[2018-01-22] MEDS ORDERED: METRONIDAZOLE 500 MG/NS RTU 100 ML IV SCH (18:00)
[2018-01-22] MEDS ORDERED: VANCOMYCIN HCL INJ 500 MG VIAL PO SCH (18:00)
[2018-01-22] MEDS: ONDANSETRON HCL INJ/PF 4 MG/2 ML SDV IV PRN (19:11)
[2018-01-22] MEDS: POTASSI CL 20 MEQ/1/2NS 1L 20 MEQ/1,000 ML RTUINJ IV PRN (19:12)
[2018-01-22] MEDS: VANCOMYCIN HCL INJ 500 MG VIAL PO SCH (21:59)
[2018-01-22] MEDS: INSULIN GLARGINE,HUM.REC.ANLOG 300 UNIT/3 ML INSULN.PEN SUBCUT SCH (21:59)
[2018-01-22] MEDS: INSULIN LISPRO 100 UNIT/ML 3 ML VIAL SUBCUT PRN (22:00)
[2018-01-23] MEDS: METRONIDAZOLE 500 MG/NS RTU 100 ML IV SCH ×5 (00:58→23:00)
[2018-01-23] MEDS: HYDROMORPHONE HCL INJ/PF 2 MG/ML AMPULE IV PRN ×3 (01:14→08:27)
[2018-01-23] MEDS: ONDANSETRON HCL INJ/PF 4 MG/2 ML SDV IV PRN ×3 (01:14→13:05)
[2018-01-23] MEDS: VANCOMYCIN HCL INJ 500 MG VIAL PO SCH ×4 (03:00→21:11)
[2018-01-23 05:23] LABS: ABSOLUTE EOSINOPHILS # (AUTO) 0.1 10^3/uL (0.0-0.6); ABSOLUTE LYMPHOCYTES (AUTO) 1.6 10^3/uL (0.5-4.7); ABSOLUTE MONOCYTES (AUTO) 0.8 10^3/uL (0.1-1.4); ABSOLUTE NEUT (AUTO) 4.6 10^3/uL (1.7-8.2); BASOPHILS % (AUTO) 0.3 % (0-2); EOSINOPHILS % (AUTO) 1.5 % (0-6); HEMATOCRIT 28.6 % (36.0-47.0); LYMPHOCYTES % (AUTO) 22.6 % (13-45); MEAN CORPUSCULAR HEMOGLOBIN 26.3 pg (27.0-33.4); MEAN CORPUSCULAR HGB CONC 32.8 g/dL (32.0-36.0); MEAN CORPUSCULAR VOLUME 80 fl (80-97); MONOCYTES % (AUTO) 10.7 % (3-13); PLATELET COUNT 270 10^3/uL (150-450); RED BLOOD COUNT 3.57 10^6/uL (3.72-5.28); RED CELL DISTRIBUTION WIDTH 15.9 % (11.5-14.0); SEGMENTED NEUTROPHILS % (AUTO) 64.9 % (42-78); TOTAL CELLS COUNTED % (AUTO) 100 %; WHITE BLOOD COUNT 7.1 10^3/uL (4.0-10.5)
[2018-01-23 05:33] LABS: HEMOGLOBIN 9.4 g/dL (12.0-15.5)
[2018-01-23 05:34] LABS: ALBUMIN 2.5 g/dL (3.5-5.0); ANION GAP 10 (5-19); BLOOD UREA NITROGEN 10 mg/dL (7-20); CALCIUM 8.8 mg/dL (8.4-10.2); CARBON DIOXIDE 26 mmol/L (22-30); CHLORIDE 107 mmol/L (98-107); GLUCOSE 94 mg/dL (75-110); PHOSPHORUS 2.7 mg/dL (2.5-4.5); POTASSIUM 3.3 mmol/L (3.6-5.0)
[2018-01-23] MEDS: POTASSI CL 20 MEQ/1/2NS 1L 20 MEQ/1,000 ML RTUINJ IV PRN ×2 (05:40→17:18)
[2018-01-23] MEDS: INSULIN GLARGINE,HUM.REC.ANLOG 300 UNIT/3 ML INSULN.PEN SUBCUT SCH ×2 (11:18→21:11)
--- NOTE | 2018-01-23 11:25 | PDOC PROGRESS REPORT ---
Subjective Progress Note for:: 01/23/18 Subjective:: Patient continues to complain of severe abdominal pain. Has been requesting Dilaudid more frequently than the 2 hours it is ordered. She reports that she has had multiple loose stools and has "messed the bed". Nursing has seen none of the stools, nor soiled sheets. Continues to complain of nausea and vomiting which has also not been witnessed. Appears to be tolerating a liquid diet. Staff remembers her from the last time she was here when she had the same complaints, and did not have any loose stool at that time either. She states that her daughter flushed all of her pain medication down the toilet. Reason For Visit: C DIFF COLITIS Physical Exam Vital Signs: Temp Pulse Resp BP Pulse Ox 97.4 F 90 16 126/90 H 94 01/23/18 07:00 01/23/18 10:16 01/23/18 10:16 01/23/18 07:00 01/23/18 10:16 Intake & Output 01/22/18 01/23/18 01/24/18 05:59 05:59 05:59 Intake Total 200 1750 Output Total 200 350 Balance 0 1400 Weight 117 lb 15.157 oz 126 lb 5.198 oz General appearance: PRESENT: mild distress GI/Abdominal exam: PRESENT: soft, tenderness - She cried out before I even touched her abdomen Neurological exam: PRESENT: alert, oriented to person, oriented to place, CN II- XII grossly intact. ABSENT: motor sensory deficit Psychiatric exam: PRESENT: agitated Focused psych exam: PRESENT: other - Very histrionic Skin exam: PRESENT: warm Results Laboratory Results: 01/23/18 03:57 01/23/18 03:57 01/23/18 01/23/18 03:57 03:57 WBC 7.1 RBC 3.57 L Hgb 9.4 L D Hct 28.6 L MCV 80 MCH 26.3 L MCHC 32.8 RDW 15.9 H Plt Count 270 Seg Neutrophils % 64.9 Lymphocytes % 22.6 Monocytes % 10.7 Eosinophils % 1.5 Basophils % 0.3 Absolute Neutrophils 4.6 Absolute Lymphocytes 1.6 Absolute Monocytes 0.8 Absolute Eosinophils 0.1 Absolute Basophils 0.0 Sodium 143.0 Potassium 3.3 L Chloride 107 Carbon Dioxide 26 Anion Gap 10 BUN 10 Creatinine 0.52 Est GFR ( Amer) > 60 Est GFR (Non-Af Amer) > 60 Glucose 94 Calcium 8.8 Phosphorus 2.7 Magnesium 1.7 Albumin 2.5 L Impressions: Abdomen/Pelvis CT 01/22/18 12:09 IMPRESSION: No acute findings in the abdomen or pelvis. Assessment & Plan - Diagnosis (1) C. difficile colitis Is this a current diagnosis for this admission?: Yes Plan: I find it somewhat odd that for the second time her CT scan is entirely benign. Clinically her abdomen is more exquisitely tender than could be explained from radiographic or laboratory findings., C. difficile toxin is positive as I would expect in someone with a past infection. She appears to be disingenuous about her diarrhea, nausea, vomiting. Given her history and apparent dishonesty I am strongly suspecting narcotic seeking behavior as opposed to an acute infection. For now, I will continue treating with vancomycin and Flagyl. [id number]-azd what GI has to say. (2) Benzodiazepine dependence, continuous Is this a current diagnosis for this admission?: Yes (3) Hyperosmolar non-ketotic state in patient with type 2 diabetes mellitus Is this a current diagnosis for this admission?: Yes Plan: Better controlled with regimen. Continue (4) Hypertension Qualifiers: Hypertension type: essential hypertension Qualified Code(s): I10 - Essential (primary) hypertension Is this a current diagnosis for this admission?: Yes Plan: Controlled on current medications. Continue (5) Smoker Is this a current diagnosis for this admission?: Yes Plan: Nicotine replacement (6) COPD (chronic obstructive pulmonary disease) Qualifiers: COPD type: unspecified COPD Qualified Code(s): J44.9 - Chronic obstructive pulmonary disease, unspecified Is this a current diagnosis for this admission?: Yes Plan: Stable. As needed nebulizers.
[2018-01-23] MEDS: OXYCODONE-ACETAMINOPHEN 5-325 MG TABLET PO PRN ×2 (11:40→17:17)
[2018-01-23] MEDS: INSULIN LISPRO 100 UNIT/ML 3 ML VIAL SUBCUT PRN ×2 (11:40→18:42)
[2018-01-23] MEDS ORDERED: NICOTINE 21 MG/24 HR PATCH.TD24 TOP ONE (12:30)
[2018-01-23] MEDS ORDERED: POTASSIUM CHLORIDE 20 MEQ/15 ML UDCUP PO ONE (13:02)
[2018-01-23] MEDS: SUCRALFATE 1 GM TABLET PO SCH ×2 (14:26→17:17)
[2018-01-23] MEDS: LORAZEPAM 1 MG TABLET PO PRN ×2 (14:43→22:57)
--- NOTE | 2018-01-23 16:04 | PSYCHOLOGICAL NOTE ---
Psych Note - Psych Note Psych Note: Reason for consult: Polysubstance abuse Contact Permissions given : None Eval: 3:00 pm Final Disposition : 4:00 pm Patient is a 62-year-old female. Patient reports that she is currently a [facility] patient and sees Emily Amador for her psychiatric medication needs. Patient reports that she is angry that she is being visited by someone from psych. Patient reports she has been not feeling well because of her C. difficile and not having enough pain medications to deal with her "swollen intestines". Patient reports that she has a good support system at home stating that her daughter Nan often visits her and has talked to her 3 times while she has been in the hospital. Patient reports that she wants Dilaudid and not Percocets because they do not work. Clinician provided education on the scope of practice of the clinician and stated that she could not make recommendations for pain medications. Patient became upset and stated that she did not want any services from psych and did not want to talk about anything or answer assessment questions. Patient reports if she changes her mind she will let her nurse know. Patient repeatedly stated " do they think that I made up my Cdiff, that I conjured it". Patient stated "are you here because you think I am suicidal, well I'm not if that's what you're thinking, I want to live I do not want to I will when it is my time and God teran it." Diagnosis: ( Through comprehensive chart review) Polysubstance abuse; Adderall, Xanax, and Alcohol Per history At this time not enough information was provided to be able to provide a diagnosis. Impression/Plan: Patient is psychiatrically cleared for discharge. Patient declined services from mental health, if patient continues to be tearful or experience psychiatric symptoms please feel free to re-consult us. Clinician observed patient was defensive regarding any topic clinician brought up. Patient was unable to answer assessment questions due to her defensiveness. Clinician provided education of the scope of practice of clinician, however was unable to discuss polysubstance abuse due to patient's current status ( inability to participate). Recommendation for patient to follow-up with her primary psychiatric provider/therapist at [facility]. Attending hospitalist in agreement with disposition and plan. Consulted with Dr. Dent regarding the management and care of patient.
[2018-01-23] MEDS: ZOLPIDEM TARTRATE 5 MG TABLET PO SCH (21:12)
[2018-01-23] MEDS ORDERED: (PENDING PHARMACY ID) (Zolpidem Tartrate [Ambien] 10 MG) PO SCH (22:00)
[2018-01-24] MEDS: OXYCODONE-ACETAMINOPHEN 5-325 MG TABLET PO PRN ×2 (00:12→06:40)
[2018-01-24] MEDS: VANCOMYCIN HCL INJ 500 MG VIAL PO SCH (04:08)
[2018-01-24] MEDS: METRONIDAZOLE 500 MG/NS RTU 100 ML IV SCH (05:19)
[2018-01-24 07:01] LABS: ABSOLUTE EOSINOPHILS # (AUTO) 0.1 10^3/uL (0.0-0.6); ABSOLUTE LYMPHOCYTES (AUTO) 1.1 10^3/uL (0.5-4.7); ABSOLUTE MONOCYTES (AUTO) 0.4 10^3/uL (0.1-1.4); ABSOLUTE NEUT (AUTO) 2.5 10^3/uL (1.7-8.2); BASOPHILS % (AUTO) 0.8 % (0-2); EOSINOPHILS % (AUTO) 3.5 % (0-6); HEMATOCRIT 28.3 % (36.0-47.0); HEMOGLOBIN 9.1 g/dL (12.0-15.5); LYMPHOCYTES % (AUTO) 26.9 % (13-45); MEAN CORPUSCULAR HGB CONC 32.2 g/dL (32.0-36.0); MEAN CORPUSCULAR VOLUME 81 fl (80-97); MONOCYTES % (AUTO) 9.8 % (3-13); PLATELET COUNT 230 10^3/uL (150-450); RED CELL DISTRIBUTION WIDTH 15.7 % (11.5-14.0); TOTAL CELLS COUNTED % (AUTO) 100 %; WHITE BLOOD COUNT 4.2 10^3/uL (4.0-10.5)
[2018-01-24 07:11] LABS: ALBUMIN 2.3 g/dL (3.5-5.0); ANION GAP 6 (5-19); BLOOD UREA NITROGEN 6 mg/dL (7-20); CALCIUM 8.5 mg/dL (8.4-10.2); CARBON DIOXIDE 24 mmol/L (22-30); CHLORIDE 112 mmol/L (98-107); GLUCOSE 63 mg/dL (75-110); PHOSPHORUS 2.1 mg/dL (2.5-4.5); POTASSIUM 3.2 mmol/L (3.6-5.0); SODIUM 142.3 mmol/L (137-145)
[2018-01-24] MEDS ORDERED: POTASSIUM CHLORIDE 20 MEQ/15 ML UDCUP PO ONE ×3 (07:56→10:00)
[2018-01-24] MEDS: ONDANSETRON HCL INJ/PF 4 MG/2 ML SDV IV PRN ×2 (08:00→20:08)
[2018-01-24] MEDS: NICOTINE 21 MG/24 HR PATCH.TD24 TOP SCH (09:32)
[2018-01-24] MEDS: INSULIN GLARGINE,HUM.REC.ANLOG 300 UNIT/3 ML INSULN.PEN SUBCUT SCH ×2 (09:36→22:27)
[2018-01-24] MEDS: LORAZEPAM 1 MG TABLET PO PRN ×2 (09:38→18:35)
[2018-01-24] MEDS: INSULIN LISPRO 100 UNIT/ML 3 ML VIAL SUBCUT PRN ×2 (11:54→16:25)
[2018-01-24] MEDS: HYDROCODONE/ACETAMINOPHEN 10-325 MG TABLET PO SCH ×2 (11:54→18:26)
--- NOTE | 2018-01-24 13:20 | PDOC PROGRESS REPORT ---
Subjective Progress Note for:: 01/24/18 Subjective:: States she is had multiple episodes of diarrhea. As far as I can ascertain one was witnessed which was a small amount, not mucousy, not especially foul. She states she has been throwing up but this also has not been witnessed. Reason For Visit: C DIFF COLITIS Physical Exam Vital Signs: Temp Pulse Resp BP Pulse Ox 98.3 F 79 18 126/81 H 100 01/24/18 12:00 01/24/18 12:00 01/24/18 12:00 01/24/18 12:00 01/24/18 12:00 Intake & Output 01/23/18 01/24/18 01/25/18 05:59 05:59 05:59 Intake Total 200 3470 1566 Output Total 200 850 Balance 0 2620 1566 Weight 117 lb 15.157 oz 126 lb 5.198 oz 131 lb 9.855 oz General appearance: PRESENT: no acute distress Respiratory exam: PRESENT: clear to auscultation megan Cardiovascular exam: PRESENT: RRR GI/Abdominal exam: PRESENT: soft, tenderness - Very histrionic with any touch at all Extremities exam: ABSENT: +1 edema Neurological exam: PRESENT: alert Psychiatric exam: PRESENT: unusual affect Skin exam: PRESENT: warm Results Laboratory Results: 01/24/18 06:41 01/24/18 06:41 01/24/18 01/24/18 06:41 06:41 WBC 4.2 RBC 3.50 L Hgb 9.1 L Hct 28.3 L MCV 81 MCH 26.0 L MCHC 32.2 RDW 15.7 H Plt Count 230 Seg Neutrophils % 59.0 Lymphocytes % 26.9 Monocytes % 9.8 Eosinophils % 3.5 Basophils % 0.8 Absolute Neutrophils 2.5 Absolute Lymphocytes 1.1 Absolute Monocytes 0.4 Absolute Eosinophils 0.1 Absolute Basophils 0.0 Sodium 142.3 Potassium 3.2 L Chloride 112 H Carbon Dioxide 24 Anion Gap 6 BUN 6 L Creatinine 0.40 L Est GFR ( Amer) > 60 Est GFR (Non-Af Amer) > 60 Glucose 63 L Calcium 8.5 Phosphorus 2.1 L Magnesium 1.6 Albumin 2.3 L Impressions: Abdomen/Pelvis CT 01/22/18 12:09 IMPRESSION: No acute findings in the abdomen or pelvis. Assessment & Plan - Diagnosis (1) C. difficile colitis Is this a current diagnosis for this admission?: Yes Plan: I find it somewhat odd that for the second time her CT scan is entirely benign. Clinically her abdomen is more exquisitely tender than could be explained from radiographic or laboratory findings., C. difficile toxin is positive as I would expect in someone with a past infection. She appears to be disingenuous about her diarrhea, nausea, vomiting. Given her history and apparent dishonesty I am strongly suspecting narcotic seeking behavior as opposed to an acute infection. I will stop vancomycin and Flagyl. Put her back on a regular diet. Wait-and- see what GI has to say. (2) Benzodiazepine dependence, continuous Is this a current diagnosis for this admission?: Yes (3) Hyperosmolar non-ketotic state in patient with type 2 diabetes mellitus Is this a current diagnosis for this admission?: Yes Plan: Labile. Continue reduced dose Lantus and cover with sliding scale insulin (4) Hypertension Qualifiers: Hypertension type: essential hypertension Qualified Code(s): I10 - Essential (primary) hypertension Is this a current diagnosis for this admission?: Yes Plan: Controlled on current medications. Continue (5) Smoker Is this a current diagnosis for this admission?: Yes Plan: Nicotine replacement (6) COPD (chronic obstructive pulmonary disease) Qualifiers: COPD type: unspecified COPD Qualified Code(s): J44.9 - Chronic obstructive pulmonary disease, unspecified Is this a current diagnosis for this admission?: Yes Plan: Stable. As needed nebulizers.
[2018-01-24] MEDS: MAGNESIUM SULFATE/D5W 1 GM/100 ML RTUPB IV SCH ×2 (13:36→15:06)
[2018-01-24] MEDS: LANSOPRAZOLE 30 MG TAB.RAP.DR PO SCH (15:30)
[2018-01-24] MEDS: SUCRALFATE SUSP 1 GM/10 ML UDCUP PO SCH ×2 (15:30→22:26)
[2018-01-24] MEDS ORDERED: LORAZEPAM INJ 2 MG/1 ML VIAL IV ONE (15:30)
[2018-01-24] MEDS: ZOLPIDEM TARTRATE 5 MG TABLET PO SCH (22:26)
[2018-01-25] MEDS ORDERED: TRAZODONE HCL 50 MG TABLET PO ONE (01:00)
[2018-01-25] MEDS: HYDROCODONE/ACETAMINOPHEN 10-325 MG TABLET PO SCH ×3 (02:11→12:16)
[2018-01-25] MEDS: LORAZEPAM 1 MG TABLET PO PRN (02:46)
[2018-01-25 06:43] LABS: ALBUMIN 2.7 g/dL (3.5-5.0); ANION GAP 8 (5-19); BLOOD UREA NITROGEN 3 mg/dL (7-20); CALCIUM 8.6 mg/dL (8.4-10.2); CARBON DIOXIDE 26 mmol/L (22-30); CHLORIDE 108 mmol/L (98-107); GLUCOSE 89 mg/dL (75-110); PHOSPHORUS 1.7 mg/dL (2.5-4.5); POTASSIUM 3.5 mmol/L (3.6-5.0); SODIUM 141.5 mmol/L (137-145)
[2018-01-25] MEDS: INSULIN GLARGINE,HUM.REC.ANLOG 300 UNIT/3 ML INSULN.PEN SUBCUT SCH (11:00)
[2018-01-25] MEDS: ONDANSETRON HCL INJ/PF 4 MG/2 ML SDV IV PRN (11:01)
[2018-01-25] MEDS: NICOTINE 21 MG/24 HR PATCH.TD24 TOP SCH (11:01)
[2018-01-25] MEDS: LANSOPRAZOLE 30 MG TAB.RAP.DR PO SCH (11:01)
[2018-01-25] MEDS: SUCRALFATE SUSP 1 GM/10 ML UDCUP PO SCH ×2 (11:02→12:16)
[2018-01-25] MEDS: INSULIN LISPRO 100 UNIT/ML 3 ML VIAL SUBCUT PRN (12:17)
[2018-01-25 13:45] VITALS: BP 133/78
[2018-01-25] MEDS ORDERED: INSULIN LISPRO 100 UNIT/ML 3 ML VIAL SUBCUT ONE (13:45)
--- NOTE | 2018-01-25 15:41 | PDOC DISCHARGE SUMMARY ---
General - Admit/Disc Date/PCP Admission Date/Primary Care Provider: 01/22/18 15:47 GIUSEPPE WHITE MD Discharge Date: 01/25/18 - Discharge Diagnosis (1) C. difficile colitis Is this a current diagnosis for this admission?: No Summary: She came in with a history consistent with recurrent C. difficile colitis. Her PCR was positive. She was very histrionic about her abdominal pain, stated that she was having 7 or more liquid stools daily, and was continuously throwing up. She was admitted and started on oral vancomycin and IV Flagyl. She continued to state that she was having 7 or 8 loose stools a day which were never witnessed by staff despite our asking to see them. She stated that she had multiple loose stools in the bed, but there were no dirty linens. Continued to state that she was throwing up that was entirely unwitnessed, and at the same time she asked for more food. I suspected secondary gain. I stopped her Flagyl, vancomycin, IV pain medications. Today she is demanding to be discharged. (2) Benzodiazepine dependence, continuous Is this a current diagnosis for this admission?: Yes Summary: I had her evaluated by psychiatry. This is a long-standing problem for her along with frequent presentations for various pain related complaints. She absolutely denied narcotic or benzodiazepine overuse, and so there was no further psychiatric follow-up indicated. (3) Hyperosmolar non-ketotic state in patient with type 2 diabetes mellitus Is this a current diagnosis for this admission?: Yes Summary: Her blood sugars are very labile. We have tried to restrict her diet, but she continues to sneak food. We covered with a sliding scale insulin. (4) Hypertension Is this a current diagnosis for this admission?: Yes Summary: Stable. Home medications were continued. (5) Smoker Is this a current diagnosis for this admission?: Yes Summary: Nicotine replacement. (6) COPD (chronic obstructive pulmonary disease) Is this a current diagnosis for this admission?: Yes Summary: Stable. Home medications are continued. - Additional Information Resuscitation Status: Full Code Discharge Diet: As Tolerated, Diabetic Discharge Activity: Activity As Tolerated, Balance Activity w/Rest Home Medications: Alprazolam [Xanax] 1 mg PO Q8HP PRN 01/22/18 Diphenoxylate HCl/Atrop Sulf [Lomotil 2.5 mg Tablet] 1 tab PO QIDP PRN 01/22/18 Etanercept [Enbrel] 50 mg SQ TH@1000 01/22/18 Hydrocodone/Acetaminophen [Hydrocodone-Acetamin 10-325 mg] 1 tab PO Q6 01/22/18 Hydrocodone/Cpm/Pseudoephed [Ytdqkfph-Rvw-Jckvcrhy 5-4-60/5] 5 ml PO Q6HP PRN Insulin Glargine,Hum.rec.anlog [Lantus] 30 unit SQ BID 01/22/18 Insulin Lispro [Humalog Kwikpen U-100] 1 unit SQ ACHS 01/22/18 Lansoprazole [Prevacid 30 mg Odt Tablet] 30 mg PO BID 01/22/18 Nicotine [Nicoderm 21 mg/24 Hr Transderm Patch] 1 patch TOP DAILY 01/22/18 Rabeprazole Sodium [Aciphex] 20 mg PO BID 01/22/18 Sucralfate [Carafate 1 gm Tablet] 1 gm PO TID 01/22/18 Zolpidem Tartrate [Ambien] 10 mg PO QHS 01/22/18 History of Present Illness Patient complains of: Nausea, vomiting, diarrhea, abdominal pain. History of Present Illness: JAMES MORRIS is a 62 year old female recently discharged following an episode of C. difficile colitis. She was discharged on oral vancomycin, completed that course, and continued to have diarrhea. She went back to her hris specialist who gave her a cup for a sample, but she was unable to make it to follow-up due to severe abdominal pain, nausea, vomiting, and intractable diarrhea. She thinks she has had some fevers and chills but is not sure. Says she has noticed some blood in her diarrhea. States she has been unable to keep anything down for the last 2 days. Hospital Course Hospital Course: She was admitted for presumptive C. difficile colitis, treated with oral vancomycin and IV Flagyl. Pain was treated with IV Dilaudid, and anxiety was treated with IV Ativan. Shortly after admission staff became suspicious of her claims of recurrent diarrhea, especially when she stated that she had soiled the bed multiple times and there was no dirty bed linen. We asked to be allowed to see her diarrhea. She had one episode of small volume, non-foul diarrhea yesterday witnessed. I stopped her antibiotics. Stopped her IV pain medication. This morning she was very angry and demanded to be discharged. Physical Exam Vital Signs: Temp Pulse Resp BP Pulse Ox 98.4 F 116 H 16 133/78 H 99 01/25/18 13:41 01/25/18 13:41 01/25/18 13:41 01/25/18 13:41 01/25/18 13:41 Intake & Output 01/24/18 01/25/18 01/26/18 05:59 05:59 05:59 Intake Total 3470 3968 730 Output Total 850 1300 Balance 2620 3968 -570 Weight 126 lb 5.198 oz 131 lb 9.855 oz 128 lb 11.999 oz General appearance: PRESENT: no acute distress Respiratory exam: PRESENT: clear to auscultation megan Cardiovascular exam: PRESENT: RRR GI/Abdominal exam: PRESENT: soft, tenderness - Cried out before I actually even touched her abdomen Neurological exam: PRESENT: awake Psychiatric exam: PRESENT: agitated Skin exam: PRESENT: warm Results Laboratory Results: 01/24/18 06:41 01/25/18 06:04 01/25/18 06:04 Sodium 141.5 Potassium 3.5 L Chloride 108 H Carbon Dioxide 26 Anion Gap 8 BUN 3 L Creatinine 0.40 L Est GFR ( Amer) > 60 Est GFR (Non-Af Amer) > 60 Glucose 89 Calcium 8.6 Phosphorus 1.7 L Magnesium 1.9 Albumin 2.7 L Impressions: Abdomen/Pelvis CT 01/22/18 12:09 IMPRESSION: No acute findings in the abdomen or pelvis. Qualifiers - * PATIENT BEING DISCHARGED WITH ANY OF THE FOLLOWING DIAGNOSIS: No
== END 2018-01-25 14:10 | disposition home or self-care (01) | DRG 372 ==
LOC: ER 11:50 → EH 15:47 → 5 17:37
PROVIDERS: ADMIT Internal Medicine; ATTEND Internal Medicine
DX: A04.71 Enterocolitis due to Clostridium difficile, recurrent (principal); F13.20 Sedative, hypnotic or anxiolytic dependence, uncomplicated; I10 Essential (primary) hypertension; R00.0 Tachycardia, unspecified; E10.8 Type 1 diabetes mellitus with unspecified complications; K21.9 Gastro-esophageal reflux disease without esophagitis; K44.9 Diaphragmatic hernia without obstruction or gangrene; J44.9 Chronic obstructive pulmonary disease, unspecified; R11.10 Vomiting, unspecified; F17.210 Nicotine dependence, cigarettes, uncomplicated; F19.10 Other psychoactive substance abuse, uncomplicated; Z79.4 Long term (current) use of insulin; Z79.899 Other long term (current) drug therapy
CPT/HCPCS: 36415; 74177; 80053; 80069; 82962; 83605; 83690; 83735; 85025; 87040; 87045; 87205; 87324; 87493; 96361; 96374; 96375; 99285; J1170; J1815; J2060; J2405; J3370; J3475; J3480; J7030; S0119

== ENCOUNTER 2018-01-27 16:06 | Emergency (ER) | payer MEDICAID ==
[2018-01-27 17:19] LABS: ALANINE AMINOTRANSFERASE 44 U/L (9-52); ALBUMIN 3.2 g/dL (3.5-5.0); ALKALINE PHOSPHATASE 191 U/L (38-126); ANION GAP 16 (5-19); ASPARTATE AMINO TRANSFERASE 61 U/L (14-36); BILIRUBIN,DIRECT 0.2 mg/dL (0.0-0.4); BILIRUBIN,TOTAL 0.2 mg/dL (0.2-1.3); BLOOD UREA NITROGEN 9 mg/dL (7-20); CARBON DIOXIDE 26 mmol/L (22-30); CHLORIDE 100 mmol/L (98-107); LIPASE 66.7 U/L (23-300); POTASSIUM 3.4 mmol/L (3.6-5.0); SODIUM 141.7 mmol/L (137-145); TOTAL PROTEIN 6.4 g/dL (6.3-8.2)
[2018-01-27 17:20] LABS: ABSOLUTE BASOPHILS # (AUTO) 0.1 10^3/uL (0.0-0.2); ABSOLUTE EOSINOPHILS # (AUTO) 0.2 10^3/uL (0.0-0.6); ABSOLUTE LYMPHOCYTES (AUTO) 1.3 10^3/uL (0.5-4.7); ABSOLUTE MONOCYTES (AUTO) 0.6 10^3/uL (0.1-1.4); ABSOLUTE NEUT (AUTO) 3.7 10^3/uL (1.7-8.2); EOSINOPHILS % (AUTO) 3.8 % (0-6); HEMATOCRIT 36.4 % (36.0-47.0); HEMOGLOBIN 11.7 g/dL (12.0-15.5); LYMPHOCYTES % (AUTO) 21.9 % (13-45); MEAN CORPUSCULAR HEMOGLOBIN 25.7 pg (27.0-33.4); MEAN CORPUSCULAR HGB CONC 32.1 g/dL (32.0-36.0); MEAN CORPUSCULAR VOLUME 80 fl (80-97); PLATELET COUNT 406 10^3/uL (150-450); RED BLOOD COUNT 4.54 10^6/uL (3.72-5.28); RED CELL DISTRIBUTION WIDTH 16.4 % (11.5-14.0); SEGMENTED NEUTROPHILS % (AUTO) 62.3 % (42-78); TOTAL CELLS COUNTED % (AUTO) 100 %; WHITE BLOOD COUNT 5.9 10^3/uL (4.0-10.5)
[2018-01-27] MEDS ORDERED: RINGERS SOLUTION,LACTATED 1,000 ML IV ONE (17:22)
[2018-01-27 17:59] LABS: GLUCOSE 400 mg/dL (75-110)
--- NOTE | 2018-01-27 18:08 | ER Document Report ---
ED GI/ - General Chief Complaint: Diarrhea Stated Complaint: DIARRHEA Time Seen by Provider: 01/27/18 16:16 Notes: The patient is a 62-year-old female who presents with 1 day of diarrhea and diffuse abdominal pain, similar to her prior episodes of C. difficile colitis that she had earlier this month. She was admitted earlier this week and left refusing any further treatment. She said the diarrhea started up again today and had some nausea. She has an appointment with Dr. Brad rodriguez. She denies fevers, urinary symptoms, blood in stool, chest pain, shortness of breath or abdominal distention. TRAVEL OUTSIDE OF THE [place] IN LAST 30 DAYS: No - Related Data Allergies/Adverse Reactions: No Known Drug Allergies Allergy (Mild, Verified 01/03/18 18:59) Past Medical History - General Information source: Patient - Social History Smoking Status: Current Every Day Smoker Chew tobacco use (# tins/day): No Frequency of alcohol use: None Drug Abuse: None Family History: Other - Unknown she is adopted Patient has suicidal ideation: No Patient has homicidal ideation: No - Past Medical History Cardiac Medical History: Reports: Hx Hypertension Denies: Hx Congestive Heart Failure, Hx DVT, Hx Heart Attack, Hx Hypercholesterolemia, Hx Pulmonary Embolism Pulmonary Medical History: Reports: Hx Bronchitis, Hx COPD, Hx Pneumonia Denies: Hx Asthma Neurological Medical History: Reports: Hx Migraine. Denies: Hx Cerebrovascular Accident, Hx Seizures Endocrine Medical History: Reports: Hx Diabetes Mellitus Type 1. Denies: Hx Diabetes Mellitus Type 2, Hx Hyperthyroidism, Hx Hypothyroidism Renal/ Medical History: Denies: Hx Peritoneal Dialysis Malignancy Medical History: Reports: Hx Ovarian Cancer, Hx Skin Cancer GI Medical History: Reports: Hx Gastroesophageal Reflux Disease, Hx Hiatal Hernia, Hx Ulcer. Denies: Hx Cirrhosis, Hx Hepatitis, Hx Pancreatitis Musculoskeltal Medical History: Reports Hx Arthritis, Reports Hx Multiple Sclerosis, Reports Hx Musculoskeletal Deformity, Reports Hx Musculoskeletal Trauma Skin Medical History: Reports Hx Psoriasis Psychiatric Medical History: Reports: Hx Anxiety, Hx Depression - Traumatic Medical History: Reports: Hx Fractures - Bilateral humerus Infectious Medical History: Reports: Hx C-Diff. Denies: Hx Hepatitis Past Surgical History: Reports: Hx Genitourinary Surgery - Bladder, Hx Orthopedic Surgery - Right wrist, Hx Tubal Ligation, Other - cataract sx bilaterally.. Denies: Hx Hysterectomy, Hx Mastectomy, Hx Open Heart Surgery, Hx Pacemaker - Immunizations Immunizations up to date: Yes Hx Diphtheria, Pertussis, Tetanus Vaccination: Yes Hx Pneumococcal Vaccination: 06/15/13 Review of Systems - Review of Systems Notes: REVIEW OF SYSTEMS: CONSTITUTIONAL: -fevers, -chills EENT: -eye pain, -difficulty swallowing, -nasal congestion CARDIOVASCULAR: -chest pain, -syncope. RESPIRATORY: -cough, -SOB GASTROINTESTINAL: +abdominal pain, +nausea, -vomiting, +diarrhea GENITOURINARY: -dysuria, -hematuria MUSCULOSKELETAL: -back pain, -neck pain SKIN: -rash or skin lesions. HEMATOLOGIC: -easy bruising or bleeding. LYMPHATIC: -swollen, enlarged glands. NEUROLOGICAL: -altered mental status or loss of consciousness, -headache, - neurologic symptoms PSYCHIATRIC: -anxiety, -depression. ALL OTHER SYSTEMS REVIEWED AND NEGATIVE. Physical Exam - Vital signs Vitals: Temp 98.4 F 01/27/18 16:52 - Notes Notes: PHYSICAL EXAMINATION: GENERAL: Well-appearing, well-nourished and in no acute distress. HEAD: Atraumatic, normocephalic. EYES: Pupils equal round and reactive to light, extraocular movements intact, sclera anicteric, conjunctiva are normal. ENT: nares patent, oropharynx clear without exudates. Moist mucous membranes. NECK: Normal range of motion, supple without lymphadenopathy LUNGS: Breath sounds clear to auscultation bilaterally and equal. No wheezes rales or rhonchi. HEART: Regular rate and rhythm without murmurs ABDOMEN: Soft, nontender, normoactive bowel sounds. No guarding, no rebound. No masses appreciated. EXTREMITIES: Normal range of motion, no pitting or edema. No cyanosis. NEUROLOGICAL: Cranial nerves grossly intact. Normal speech, normal gait. Normal sensory and motor exams. PSYCH: Normal mood, normal affect. SKIN: Warm, Dry, normal turgor, no rashes or lesions noted. Course - Re-evaluation Re-evalutation: Patient has had multiple workups for this chronic abdominal pain, including multiple negative CAT scans. Her blood work looks unremarkable, other than her hyperglycemia without anion gap. She frequently has hyperglycemia and told her to take her insulin when she gets home as she cannot remember the dose at this time. Her C. difficile is negative and electrolytes are normal, other than slight hypokalemia. After Haldol, her abdominal pain and nausea resolved. She has an appointment with Dr. Brad rodriguez. Her prior discharge summary was reviewed from earlier this week. Suspect secondary gain as she said that she wants to leave once she was told that no narcotics would be given for her chronic abdominal pain. Case management consulted due to high utilization rate of the ER and to help with outpatient services. Patient given strict return precautions and she understands. - Vital Signs Vital signs: Temp Pulse Resp BP Pulse Ox 98.4 F 01/27/18 16:52 - Laboratory Result Diagrams: 01/27/18 15:50 01/27/18 15:50 Laboratory results interpreted by me: 01/27/18 01/27/18 15:50 15:50 Hgb 11.7 L MCH 25.7 L RDW 16.4 H Potassium 3.4 L Glucose 400 H* AST 61 H Alkaline Phosphatase 191 H Albumin 3.2 L Discharge - Discharge Clinical Impression: Hyperglycemia Diarrhea Qualifiers: Diarrhea type: unspecified type Qualified Code(s): R19.7 - Diarrhea, unspecified Condition: Stable Disposition: HOME, SELF-CARE Additional Instructions: ABDOMINAL PAIN: There are many causes of abdominal pain. Pain can mean a serious problem requiring surgery (such as appendicitis). It can also be an innocent problem that goes away on its own (such as a viral infection). Often, time must pass to determine the cause of pain. The physician does not feel that hospitalization is necessary, at present. Things may change within the next 24 hours. Call the doctor or come back for re- examination if any problems occur, such as: (1) Pain that becomes more severe, steady, or becomes concentrated in one specific area. Also, pain that is more severe with movement or coughing. (2) Vomiting that persists or becomes more frequent. (3) Blood in the vomitus, urine, or bowel movements. Blood in the stool may have a tarry or black appearance. (4) Shaking chills or fever greater than 100 degrees F. (5) The abdomen becomes more distended or swollen. (6) Bowel movements cease. (7) Failure to improve as expected. NORMAL EXAM AND WORKUP: At this time, your examination and workup show no significant abnormality. No significant abnormal physical findings are noted. All laboratory, EKG, and imaging (x-ray, CT scans, ultrasound) studies that were ordered show no significant abnormality. Although your examination and all studies that were ordered showed no significant abnormal finding, there are no examinations and no studies that are 100% accurate. There is always the possibility that some abnormality could exist and not be detected with physical examination or within the limits and capabilities of laboratory and other studies. You should return or follow up as you were instructed on your visit today for further evaluation if your symptoms do not resolve. FOLLOW-UP CARE: If you have been referred to a physician for follow-up care, call the physician s office for an appointment as you were instructed or within the next two days. If you experience worsening or a significant change in your symptoms, notify the physician immediately or return to the Emergency Department at any time for re-evaluation. Prescriptions: Ondansetron [Zofran Odt 4 mg Tablet] 1 - 2 tab PO Q4H PRN #15 tab.rapdis PRN Reason: For Nausea/Vomiting Referrals: ALBAN AGGARWAL MD [ACTIVE STAFF] - Follow up as needed
[2018-01-27] MEDS ORDERED: HALOPERIDOL LACTATE INJ 5 MG/1 ML VIAL IV ONE (18:13)
[2018-01-27 18:32] VITALS: BP 114/94
== END 2018-01-27 18:28 | disposition home or self-care (01) ==
LOC: ER 16:06
DX: E10.65 Type 1 diabetes mellitus with hyperglycemia (principal); R19.7 Diarrhea, unspecified; R10.9 Unspecified abdominal pain; F17.200 Nicotine dependence, unspecified, uncomplicated; I10 Essential (primary) hypertension; Z79.4 Long term (current) use of insulin; Z85.43 Personal history of malignant neoplasm of ovary; Z85.828 Personal history of other malignant neoplasm of skin; Z98.51 Tubal ligation status
CPT/HCPCS: 99284; 96361; 96374; 36415; 87045; 87205; 83605; 83690; 85025; 82272; 80053; 87493; J1630; J7120

== ENCOUNTER 2018-02-26 15:26 | Inpatient (IN) | payer MEDICAID ==
[2018-02-26] MEDS: NORMAL SALINE 1000 ML 1,000 ML IV PRN ×3 (15:42→17:11)
[2018-02-26 15:58] LABS: VENOUS BLOOD BASE EXCESS -2.8 mmol/L; VENOUS BLOOD HCO3 21.8 mmol/L (20-32); VENOUS BLOOD PCO2 37.6 mmHg (35-63); VENOUS BLOOD PH 7.38 (7.30-7.42)
[2018-02-26 16:00] LABS: ABSOLUTE BASOPHILS # (AUTO) 0.1 10^3/uL (0.0-0.2); ABSOLUTE EOSINOPHILS # (AUTO) 0.2 10^3/uL (0.0-0.6); ABSOLUTE MONOCYTES (AUTO) 0.8 10^3/uL (0.1-1.4); ABSOLUTE NEUT (AUTO) 6.6 10^3/uL (1.7-8.2); EOSINOPHILS % (AUTO) 1.8 % (0-6); HEMATOCRIT 41.6 % (36.0-47.0); HEMOGLOBIN 13.1 g/dL (12.0-15.5); LYMPHOCYTES % (AUTO) 20.6 % (13-45); MEAN CORPUSCULAR HEMOGLOBIN 24.4 pg (27.0-33.4); MEAN CORPUSCULAR HGB CONC 31.5 g/dL (32.0-36.0); MEAN CORPUSCULAR VOLUME 78 fl (80-97); MONOCYTES % (AUTO) 7.8 % (3-13); PLATELET COUNT 244 10^3/uL (150-450); RED BLOOD COUNT 5.36 10^6/uL (3.72-5.28); RED CELL DISTRIBUTION WIDTH 18.2 % (11.5-14.0); SEGMENTED NEUTROPHILS % (AUTO) 68.8 % (42-78); TOTAL CELLS COUNTED % (AUTO) 100 %; WHITE BLOOD COUNT 9.7 10^3/uL (4.0-10.5)
[2018-02-26 16:10] LABS: INTERNATIONAL RATION (INR) 1.12
--- NOTE | 2018-02-26 16:16 | ER Document Report ---
ED General - General Chief Complaint: Diarrhea Stated Complaint: WEAKNESS Time Seen by Provider: 02/26/18 15:41 Mode of Arrival: Medic Information source: Patient Notes: 62-year-old female presents with complaints of generalized weakness. Patient is a diabetic EMS noted blood sugar 568, she notes she last checked her blood sugar yesterday has not taken her sliding scale today. Patient also notes she has had multiple episodes of C. difficile in the past unsure if she has it again today. Patient found hypotensive initial blood pressure 80/52 heart rate 107 respiratory rate 30 given LR bolus 400 cc prior to arrival TRAVEL OUTSIDE OF THE [place] IN LAST 30 DAYS: No - HPI Onset: Just prior to arrival Onset/Duration: Sudden Quality of pain: No pain Severity: Severe Pain Level: Denies Associated symptoms: Diarrhea, Weakness Exacerbated by: Denies Relieved by: Denies Similar symptoms previously: Yes Recently seen / treated by doctor: Yes - Related Data Allergies/Adverse Reactions: No Known Drug Allergies Allergy (Mild, Verified 01/03/18 18:59) Past Medical History - Social History Smoking Status: Never Smoker Cigarette use (# per day): No Chew tobacco use (# tins/day): No Smoking Education Provided: No Family History: Other - Unknown she is adopted - Past Medical History Cardiac Medical History: Reports: Hx Hypertension Denies: Hx Congestive Heart Failure, Hx DVT, Hx Heart Attack, Hx Hypercholesterolemia, Hx Pulmonary Embolism Pulmonary Medical History: Reports: Hx Bronchitis, Hx COPD, Hx Pneumonia Denies: Hx Asthma Neurological Medical History: Reports: Hx Migraine. Denies: Hx Cerebrovascular Accident, Hx Seizures Endocrine Medical History: Reports: Hx Diabetes Mellitus Type 1. Denies: Hx Diabetes Mellitus Type 2, Hx Hyperthyroidism, Hx Hypothyroidism Renal/ Medical History: Denies: Hx Peritoneal Dialysis Malignancy Medical History: Reports: Hx Ovarian Cancer, Hx Skin Cancer GI Medical History: Reports: Hx Gastroesophageal Reflux Disease, Hx Hiatal Hernia, Hx Ulcer. Denies: Hx Cirrhosis, Hx Hepatitis, Hx Pancreatitis Musculoskeltal Medical History: Reports Hx Arthritis, Reports Hx Multiple Sclerosis, Reports Hx Musculoskeletal Deformity, Reports Hx Musculoskeletal Trauma Skin Medical History: Reports Hx Psoriasis Psychiatric Medical History: Reports: Hx Anxiety, Hx Depression - Traumatic Medical History: Reports: Hx Fractures - Bilateral humerus Infectious Medical History: Reports: Hx C-Diff. Denies: Hx Hepatitis Past Surgical History: Reports: Hx Genitourinary Surgery - Bladder, Hx Orthopedic Surgery - Right wrist, Hx Tubal Ligation, Other - cataract sx bilaterally.. Denies: Hx Hysterectomy, Hx Mastectomy, Hx Open Heart Surgery, Hx Pacemaker - Immunizations Immunizations up to date: Yes Hx Diphtheria, Pertussis, Tetanus Vaccination: Yes Hx Pneumococcal Vaccination: 06/15/13 Review of Systems - Review of Systems Notes: REVIEW OF SYSTEMS: CONSTITUTIONAL : Denies fever, chills, or sweats. Admits to weakness EENT: Denies eye, ear, throat, or mouth pain or symptoms. Denies nasal or sinus congestion or discharge. Denies throat, tongue, or mouth swelling or difficulty swallowing. CARDIOVASCULAR: Denies chest pain. Denies palpitations or racing or irregular heart beat. Denies ankle edema. RESPIRATORY: Denies cough, cold, or chest congestion. Denies shortness of breath, difficulty breathing, or wheezing. GASTROINTESTINAL: Admits to diarrhea GENITOURINARY: Denies difficulty urinating, painful urination, burning, frequency, blood in urine, or discharge. FEMALE GENITOURINARY: Denies vaginal bleeding, heavy or abnormal periods, irregular periods. Denies vaginal discharge or odor. MUSCULOSKELETAL: Denies back or neck pain or stiffness. Denies joint pain or swelling. SKIN: Denies rash, lesions or sores. HEMATOLOGIC : Denies easy bruising or bleeding. LYMPHATIC: Denies swollen, enlarged glands. NEUROLOGICAL: Admits to weakness PSYCHIATRIC: Denies anxiety or stress. Denies depression, suicidal ideation, or homicidal ideation. ALL OTHER SYSTEMS REVIEWED AND NEGATIVE. PHYSICAL EXAMINATION: GENERAL: Thin female. Hypotensive HEAD: Atraumatic, normocephalic. EYES: Pupils equal round and reactive to light, extraocular movements intact, conjunctiva are normal. ENT: Nares patent, oropharynx clear without exudates. Moist mucous membranes. NECK: Normal range of motion, supple without lymphadenopathy LUNGS: Breath sounds clear to auscultation bilaterally and equal. No wheezes rales or rhonchi. HEART: Regular rate and rhythm without murmurs ABDOMEN: Soft, nontender, nondistended abdomen. No guarding, no rebound. No masses appreciated. Female : deferred Musculoskeletal: Normal range of motion, no pitting or edema. No cyanosis. NEUROLOGICAL: Cranial nerves grossly intact. Normal speech, normal gait. Normal sensory, motor exams PSYCH: Normal mood, normal affect. SKIN: Warm, Dry, normal turgor, no rashes or lesions noted. Dictation was performed using [employer] voice recognition software Physical Exam - Vital signs Vitals: Resp BP Pulse Ox 26 H 77/57 L 97 02/26/18 15:34 02/26/18 15:34 02/26/18 15:34 Course - Re-evaluation Re-evalutation: 02/26/18 16:16 Patient's presentation is most consistent with hypotension hyperglycemia, patient does meet Sirs criteria source of possible infection is being evaluated for fluids have been given blood pressure is improved significantly from initial presentation 02/26/18 16:59 Patient's blood pressure has improved with 2 L IV fluids, lactic acid is noted to be elevated at 3.1, I did consult for admission, states no admission criteria and will not see the patient. I explained hospitalist protocol require her to evaluate a patient if she does not feel the patient needs admission and she can discharge the patient. Dr Clark states there is no reason for her ot see the patient. 02/26/18 23:16 Patient was noted to have a UTI, meets sepsis criteria, her lactic acid even on repeat is noted to be elevated, - Vital Signs Vital signs: Temp Pulse Resp BP Pulse Ox 97.8 F 83 16 99/61 L 97 02/26/18 20:13 02/26/18 20:13 02/26/18 20:13 02/26/18 20:13 02/26/18 20:13 - Laboratory Result Diagrams: 02/26/18 15:38 02/26/18 15:38 Laboratory results interpreted by me: 02/26/18 02/26/18 02/26/18 15:38 15:38 15:38 RBC 5.36 H MCV 78 L MCH 24.4 L MCHC 31.5 L RDW 18.2 H Sodium 135.0 L Potassium 3.4 L Carbon Dioxide 20 L BUN 25 H Glucose 613 H* Lactic Acid 3.1 H AST 60 H Alkaline Phosphatase 171 H Urine Protein Urine Glucose (UA) Urine Urobilinogen Ur Leukocyte Esterase 02/26/18 16:23 RBC MCV MCH MCHC RDW Sodium Potassium Carbon Dioxide BUN Glucose Lactic Acid AST Alkaline Phosphatase Urine Protein 30 H Urine Glucose (UA) >=500 H Urine Urobilinogen 2.0 H Ur Leukocyte Esterase LARGE H Critical Care Note - Critical Care Note Total time excluding time spent on procedures (mins): 55 Comments: 55 minutes of critical care time spent in direct contact evaluating and reevaluating the patient, treating symptoms, reviewing labs and studies and speaking with family and consultants excluding any procedures Discharge - Discharge Clinical Impression: Hyperglycemia UTI (urinary tract infection) Qualifiers: Urinary tract infection type: acute cystitis Hematuria presence: without hematuria Qualified Code(s): N30.00 - Acute cystitis without hematuria Sepsis Qualifiers: Sepsis type: sepsis due to unspecified organism Qualified Code(s): A41.9 - Sepsis, unspecified organism Hypotension Qualifiers: Hypotension type: unspecified hypotension type Qualified Code(s): I95.9 - Hypotension, unspecified Condition: Fair Disposition: ADMITTED INPATIENT Admitting Provider: Hospitalist Unit Admitted: Telemetry
[2018-02-26 16:23] LABS: ALANINE AMINOTRANSFERASE 37 U/L (9-52); ALBUMIN 3.8 g/dL (3.5-5.0); ALKALINE PHOSPHATASE 171 U/L (38-126); ANION GAP 16 (5-19); ASPARTATE AMINO TRANSFERASE 60 U/L (14-36); BILIRUBIN,DIRECT 0.4 mg/dL (0.0-0.4); BILIRUBIN,TOTAL 0.9 mg/dL (0.2-1.3); BLOOD UREA NITROGEN 25 mg/dL (7-20); CALCIUM 9.5 mg/dL (8.4-10.2); CARBON DIOXIDE 20 mmol/L (22-30); CHLORIDE 99 mmol/L (98-107); POTASSIUM 3.4 mmol/L (3.6-5.0); TOTAL PROTEIN 6.9 g/dL (6.3-8.2)
[2018-02-26 16:30] LABS: GLUCOSE 613 mg/dL (75-110)
[2018-02-26] MEDS ORDERED: INSULIN REG, HUMAN 100 UNIT/ML 3 ML VIAL (PYX) IV ONE (16:52)
[2018-02-26 17:03] LABS: AMORPHOUS SEDIMENT,URINE TRACE /HPF; APPEARANCE,URINE CLOUDY; BILIRUBIN,URINE NEGATIVE (NEGATIVE); GLUCOSE, URINE >=500 mg/dL (NEGATIVE); KETONES,URINE NEGATIVE (NEGATIVE); LEUKOCYTE ESTERASE,URINE LARGE (NEGATIVE); NITRITE,URINE NEGATIVE (NEGATIVE); PROTEIN,URINE 30 mg/dL (NEGATIVE); URINE SPECIFIC GRAVITY 1.025
[2018-02-26 17:04] LABS: COLOR,URINE YELLOW
[2018-02-26] MEDS ORDERED: CEFAZOLIN 1 GM/D5W RTU 1 GM/50 ML RTUPB IV ONE (17:08)
[2018-02-26] MEDS ORDERED: ACETAMINOPHEN 325 MG TABLET PO PRN (17:30)
[2018-02-26] MEDS ORDERED: ONDANSETRON HCL INJ/PF 4 MG/2 ML SDV IV PRN (17:30)
[2018-02-26] MEDS ORDERED: IPRATROPIUM/ALBUTEROL 0.5-2.5 MG/3 ML AMPUL NEB PRN (17:30)
[2018-02-26] MEDS ORDERED: ONDANSETRON 4 MG TAB.RAPDIS PO PRN (17:30)
[2018-02-26] MEDS ORDERED: GLUCAGON,HUMAN RECOMB 1 MG INJ IM PRN (17:33)
[2018-02-26] MEDS ORDERED: DEXTROSE 50%-WATER 25 GM/50 ML DISP.SYRIN IV PRN ×2 (17:33)
[2018-02-26] MEDS ORDERED: DEXTROSE 40% GEL 15 GM TUBE PO PRN ×2 (17:33)
[2018-02-26] MEDS ORDERED: NORMAL SALINE 1000 ML 1,000 ML IV PRN (17:47)
[2018-02-26] MEDS ORDERED: CIPROFLOXACIN HCL 500 MG TABLET PO SCH (18:00)
--- NOTE | 2018-02-26 18:26 | PDOC H&P ---
History of Present Illness Admission Date/PCP: [facility] WH[facility] MD PCP 02/26/18 Patient complains of: abdominal pain diarrhea History of Present Illness: JAMES MORRIS is a 62 year old female with past medical history of Anxiety Insulin-dependent diabetes C. difficile colitis Tobacco dependence COPD Hypertension GERD Depression Arthritis She presented to the hospital complaining of abdominal pain and diarrhea. She was found to have SBP in the lactic acid was 3.5. Urine analysis is suggestive of UTI. Blood sugar was80s which improved with IV fluids. Blood glucose was 600 and she was given 10 units of IV regular insulin. Outpatient medications: Xanax 1 mg every 8 hours as needed Lomotil 4 times a day as needed Enbrel 50 mg subcu on Hydrocodone acetaminophen 10/325 mg every 6 hours Lantus 30 units twice a day Insulin lispro sliding scale before meals Prevacid 30 mg twice a day Nicotine patch AcipHex Carafate 1 g 3 times a day Ambien 10 mg at bedtime Past Medical History Cardiac Medical History: Reports: Hypertension Pulmonary Medical History: Reports: Bronchitis, Chronic Obstructive Pulmonary Disease (COPD), Pneumonia Neurological Medical History: Reports: Migraine Denies: Seizures Endocrine Medical History: Reports: Diabetes Mellitus Type 2 Malignancy Medical History: Reports: Skin Cancer GI Medical History: Reports: Gastroesophageal Reflux Disease, Hiatal Hernia Musculoskeltal Medical History: Reports: Arthritis Skin Medical History: Reports: Psoriasis Psychiatric Medical History: Reports: Depression - Hematology: Reports: Anemia Infectious Medical History: Reports: Clostridium Difficile Past Surgical History Past Surgical History: Reports: Orthopedic Surgery - Right wrist, Tubal Ligation , Other - cataract sx bilaterally. Denies: Amputation, Hysterectomy, Mastectomy, Pacemaker Social History Smoking Status: Never Smoker Frequency of Alcohol Use: None Hx Recreational Drug Use: No Drugs: None Hx Prescription Drug Abuse: No Family History Family History: Other - Unknown she is adopted Parental Family History Reviewed: Yes Children Family History Reviewed: Yes Sibling(s) Family History Reviewed.: Yes Medication/Allergy Allergies/Adverse Reactions: No Known Drug Allergies Allergy (Mild, Verified 01/03/18 18:59) Review of Systems Constitutional: PRESENT: weakness. ABSENT: fever(s) Eyes: ABSENT: visual disturbances Ears: ABSENT: hearing changes Nose, Mouth, and Throat: ABSENT: sore throat Cardiovascular: ABSENT: chest pain, edema Respiratory: ABSENT: cough, dyspnea Gastrointestinal: PRESENT: abdominal pain, diarrhea, nausea, vomiting. ABSENT: constipation, hematemesis, hematochezia Genitourinary: ABSENT: dysuria Musculoskeletal: ABSENT: joint swelling Integumentary: ABSENT: pruritus Neurological: ABSENT: focal weakness Psychiatric: PRESENT: anxiety. ABSENT: hallucinations Endocrine: ABSENT: heat intolerance Hematologic/Lymphatic: ABSENT: easy bleeding Allergic/Immunologic: ABSENT: seasonal rhinorrhea Physical Exam Vital Signs: Temp Pulse Resp BP Pulse Ox 98.2 F 25 H 98/63 L 99 02/26/18 15:41 02/26/18 17:15 02/26/18 17:15 02/26/18 17:15 Intake & Output 02/25/18 02/26/18 02/27/18 06:59 06:59 06:59 Weight 54.3 kg General appearance: PRESENT: thin Head exam: PRESENT: normocephalic Eye exam: PRESENT: PERRLA. ABSENT: scleral icterus Mouth exam: PRESENT: moist Teeth exam: PRESENT: edentulous Throat exam: ABSENT: post pharyngeal erythema Neck exam: ABSENT: tracheal deviation Respiratory exam: PRESENT: symmetrical, unlabored. ABSENT: wheezes Cardiovascular exam: PRESENT: RRR GI/Abdominal exam: PRESENT: normal bowel sounds, soft. ABSENT: tenderness Rectal exam: PRESENT: deferred Gentrourinary exam: PRESENT: indwelling catheter Extremities exam: ABSENT: calf tenderness, pedal edema Neurological exam: PRESENT: alert, awake Psychiatric exam: PRESENT: anxious Skin exam: ABSENT: petechiae Results Laboratory Results: 02/26/18 15:38 02/26/18 15:38 02/26/18 02/26/18 02/26/18 15:38 15:38 15:38 WBC 9.7 RBC 5.36 H Hgb 13.1 Hct 41.6 MCV 78 L MCH 24.4 L MCHC 31.5 L RDW 18.2 H Plt Count 244 Seg Neutrophils % 68.8 Lymphocytes % 20.6 Monocytes % 7.8 Eosinophils % 1.8 Basophils % 1.0 Absolute Neutrophils 6.6 Absolute Lymphocytes 2.0 Absolute Monocytes 0.8 Absolute Eosinophils 0.2 Absolute Basophils 0.1 VBG pH VBG pCO2 VBG HCO3 VBG Base Excess Sodium 135.0 L Potassium 3.4 L Chloride 99 Carbon Dioxide 20 L Anion Gap 16 BUN 25 H Creatinine 0.81 Est GFR ( Amer) > 60 Est GFR (Non-Af Amer) > 60 Glucose 613 H* Lactic Acid 3.1 H Calcium 9.5 Total Bilirubin 0.9 AST 60 H ALT 37 Alkaline Phosphatase 171 H Total Protein 6.9 Albumin 3.8 Urine Color Urine Appearance Urine pH Ur Specific Celina Urine Protein Urine Glucose (UA) Urine Ketones Urine Blood Urine Nitrite Ur Leukocyte Esterase Urine WBC (Auto) Urine RBC (Auto) 02/26/18 02/26/18 15:38 16:23 WBC RBC Hgb Hct MCV MCH MCHC RDW Plt Count Seg Neutrophils % Lymphocytes % Monocytes % Eosinophils % Basophils % Absolute Neutrophils Absolute Lymphocytes Absolute Monocytes Absolute Eosinophils Absolute Basophils VBG pH 7.38 VBG pCO2 37.6 VBG HCO3 21.8 VBG Base Excess -2.8 Sodium Potassium Chloride Carbon Dioxide Anion Gap BUN Creatinine Est GFR ( Amer) Est GFR (Non-Af Amer) Glucose Lactic Acid Calcium Total Bilirubin AST ALT Alkaline Phosphatase Total Protein Albumin Urine Color YELLOW Urine Appearance CLOUDY Urine pH 7.0 Ur Specific Cel[place] 1.025 Urine Protein 30 H Urine Glucose (UA) >=500 H Urine Ketones NEGATIVE Urine Blood NEGATIVE Urine Nitrite NEGATIVE Ur Leukocyte Esterase LARGE H Urine WBC (Auto) >182 Urine RBC (Auto) 3 Assessment & Plan - Diagnosis (1) Hyperglycemia Is this a current diagnosis for this admission?: Yes Plan: Resume Lantus and Aspart sliding scale (2) Hypotension Qualifiers: Is this a current diagnosis for this admission?: Yes Plan: IV fluids, improving (3) UTI (urinary tract infection) Is this a current diagnosis for this admission?: Yes Plan: Start Rocephin- follow up on cultures (4) Benzodiazepine dependence, continuous Is this a current diagnosis for this admission?: Yes (5) DVT prophylaxis Is this a current diagnosis for this admission?: Yes Plan: TEDs (6) Dehydration Is this a current diagnosis for this admission?: Yes (7) Diabetes mellitus Qualifiers: Diabetes mellitus type: other specified (including CHAO) Diabetes mellitus custodial insulin use: with custodial use Is this a current diagnosis for this admission?: Yes Plan: above (8) COPD (chronic obstructive pulmonary disease) Qualifiers: COPD type: unspecified COPD Qualified Code(s): J44.9 - Chronic obstructive pulmonary disease, unspecified Is this a current diagnosis for this admission?: Yes Plan: Stable not in exacerbation, nebs prn (9) Tobacco use disorder Is this a current diagnosis for this admission?: Yes Plan: Nicotine patch - Time Time Spent: 50 to 70 Minutes
[2018-02-26] MEDS ORDERED: ALPRAZOLAM 0.5 MG TABLET PO PRN (18:28)
[2018-02-26] MEDS ORDERED: INSULIN GLARGINE,HUM.REC.ANLOG 1,000 UNIT/10 ML UNIT SUBCUT SCH (18:30)
[2018-02-26] MEDS: INSULIN LISPRO 100 UNIT/ML 3 ML VIAL SUBCUT PRN (18:47)
[2018-02-26] MEDS ORDERED: INSULIN GLARGINE,HUM.REC.ANLOG 1,000 UNIT/10 ML UNIT SUBCUT ONE (19:00)
--- NOTE | 2018-02-26 20:25 | EKG REPORT ---
SEVERITY:- ABNORMAL ECG - SINUS RHYTHM PROLONGED QT INTERVAL : Confirmed by: Luis Alberto Walls MD 26-Feb-2018 20:24:47
[2018-02-26] MEDS ORDERED: TEMAZEPAM 15 MG CAPSULE PO SCH (22:00)
[2018-02-27] MEDS ORDERED: LANSOPRAZOLE 30 MG TAB.RAP.DR PO SCH (06:00)
[2018-02-27 07:34] LABS: ABSOLUTE EOSINOPHILS # (AUTO) 0.2 10^3/uL (0.0-0.6); ABSOLUTE LYMPHOCYTES (AUTO) 1.4 10^3/uL (0.5-4.7); ABSOLUTE MONOCYTES (AUTO) 0.3 10^3/uL (0.1-1.4); ABSOLUTE NEUT (AUTO) 1.9 10^3/uL (1.7-8.2); BASOPHILS % (AUTO) 1.2 % (0-2); HEMATOCRIT 32.7 % (36.0-47.0); LYMPHOCYTES % (AUTO) 37.4 % (13-45); MEAN CORPUSCULAR HEMOGLOBIN 24.5 pg (27.0-33.4); MEAN CORPUSCULAR HGB CONC 31.7 g/dL (32.0-36.0); MEAN CORPUSCULAR VOLUME 77 fl (80-97); MONOCYTES % (AUTO) 7.6 % (3-13); PLATELET COUNT 129 10^3/uL (150-450); RED BLOOD COUNT 4.23 10^6/uL (3.72-5.28); RED CELL DISTRIBUTION WIDTH 18.2 % (11.5-14.0); SEGMENTED NEUTROPHILS % (AUTO) 48.8 % (42-78); TOTAL CELLS COUNTED % (AUTO) 100 %; WHITE BLOOD COUNT 3.8 10^3/uL (4.0-10.5)
[2018-02-27 07:35] LABS: ANION GAP 9 (5-19); BLOOD UREA NITROGEN 17 mg/dL (7-20); CALCIUM 8.5 mg/dL (8.4-10.2); CARBON DIOXIDE 22 mmol/L (22-30); CHLORIDE 111 mmol/L (98-107); GLUCOSE 319 mg/dL (75-110); PHOSPHORUS 3.4 mg/dL (2.5-4.5); SODIUM 141.6 mmol/L (137-145)
[2018-02-27 07:41] LABS: POTASSIUM 2.9 mmol/L (3.6-5.0)
[2018-02-27 07:44] LABS: HEMOGLOBIN 10.4 g/dL (12.0-15.5)
[2018-02-27] MEDS ORDERED: CEFTRIAXONE 1 GM/D5W RTU 1 GM/50 ML RTUPB IV SCH (08:00)
[2018-02-27] MEDS ORDERED: ONDANSETRON 4 MG TAB.RAPDIS PO PRN (08:38)
[2018-02-27] MEDS ORDERED: ONDANSETRON HCL INJ/PF 4 MG/2 ML SDV IV PRN (08:38)
[2018-02-27] MEDS ORDERED: (PENDING PHARMACY ID) (Promethazine Hcl [Promethazine Hcl] 12.5 MG) PO PRN (08:39)
[2018-02-27] MEDS: CEFTRIAXONE SODIUM 1,000 MG in DEXTROSE 5%-WATER 50 ML IV SCH (09:03)
[2018-02-27] MEDS: POTASSI CL 40 MEQ/NS 1L 1,000 ML IV PRN ×2 (09:10→16:45)
[2018-02-27] MEDS: INSULIN LISPRO 100 UNIT/ML 3 ML VIAL SUBCUT PRN ×3 (09:20→16:41)
[2018-02-27] MEDS ORDERED: GABAPENTIN 300 MG CAPSULE PO ONE (09:30)
[2018-02-27] MEDS ORDERED: (PENDING PHARMACY ID) (Potassium Chloride [K-Tab Er] 40 MEQ) PO SCH (10:00)
[2018-02-27] MEDS: PROMETHAZINE HCL 25 MG TABLET PO PRN (10:47)
[2018-02-27] MEDS: HYDROCODONE/ACETAMINOPHEN 10-325 MG TABLET PO PRN ×2 (11:00→17:59)
[2018-02-27] MEDS: NICOTINE 21 MG/24 HR PATCH.TD24 TD SCH (11:01)
[2018-02-27] MEDS: INSULIN GLARGINE,HUM.REC.ANLOG 300 UNIT/3 ML INSULN.PEN SUBCUT SCH ×2 (11:02→21:46)
[2018-02-27] MEDS: SUCRALFATE 1 GM TABLET PO SCH ×4 (12:18→21:44)
[2018-02-27] MEDS: LACTOBACILLUS ACIDOPHILUS 250 MG TAB PO SCH (12:21)
[2018-02-27] MEDS: ALPRAZOLAM 0.5 MG TABLET PO PRN ×2 (12:25→21:46)
[2018-02-27] MEDS ORDERED: AMLODIPINE BESYLATE 5 MG TABLET PO ONE (12:30)
[2018-02-27] MEDS: POTASSIUM CHLORIDE 10 MEQ CAPSULE.ER PO SCH ×2 (13:10→18:02)
[2018-02-27] MEDS: GABAPENTIN 300 MG CAPSULE PO SCH ×2 (15:39→21:44)
--- NOTE | 2018-02-27 16:48 | PDOC PROGRESS REPORT ---
Subjective Progress Note for:: 02/27/18 Subjective:: Complains of multiple episodes of vomiting and an inability to keep anything down. Reason For Visit: ABDOMINAL PAIN,HYPERGLYCEMIA,UTI,DIARRHEA Physical Exam Vital Signs: Temp Pulse Resp BP Pulse Ox 97.9 F 91 12 102/63 98 02/27/18 15:33 02/27/18 15:33 02/27/18 15:33 02/27/18 15:33 02/27/18 15:33 Intake & Output 02/26/18 02/27/18 02/28/18 06:59 06:59 06:59 Intake Total 1290 360 Output Total 1000 1750 Balance 290 -1390 Weight 54.3 kg Results Laboratory Results: 02/27/18 06:15 02/27/18 06:15 02/26/18 02/26/18 02/27/18 18:45 18:45 06:15 WBC RBC Hgb Hct MCV MCH MCHC RDW Plt Count Seg Neutrophils % Lymphocytes % Monocytes % Eosinophils % Basophils % Absolute Neutrophils Absolute Lymphocytes Absolute Monocytes Absolute Eosinophils Absolute Basophils Sodium 141.6 Potassium 2.9 L* Chloride 111 H Carbon Dioxide 22 Anion Gap 9 BUN 17 Creatinine 0.55 Est GFR ( Amer) > 60 Est GFR (Non-Af Amer) > 60 Glucose 319 H Lactic Acid Cancelled 3.2 H Calcium 8.5 Phosphorus 3.4 Magnesium 1.7 TSH 02/27/18 02/27/18 06:15 06:15 WBC 3.8 L RBC 4.23 Hgb 10.4 L D Hct 32.7 L MCV 77 L MCH 24.5 L MCHC 31.7 L RDW 18.2 H Plt Count 129 L Seg Neutrophils % 48.8 Lymphocytes % 37.4 Monocytes % 7.6 Eosinophils % 5.0 Basophils % 1.2 Absolute Neutrophils 1.9 Absolute Lymphocytes 1.4 Absolute Monocytes 0.3 Absolute Eosinophils 0.2 Absolute Basophils 0.0 Sodium Potassium Chloride Carbon Dioxide Anion Gap BUN Creatinine Est GFR ( Amer) Est GFR (Non-Af Amer) Glucose Lactic Acid Calcium Phosphorus Magnesium TSH 1.33 Assessment & Plan - Diagnosis (1) Hyperglycemia Is this a current diagnosis for this admission?: Yes Plan: Continue Lantus and Aspart sliding scale (2) Hypotension Qualifiers: Hypotension type: unspecified hypotension type Qualified Code(s): I95.9 - Hypotension, unspecified Is this a current diagnosis for this admission?: Yes Plan: IV fluids, improving (3) UTI (urinary tract infection) Qualifiers: Urinary tract infection type: acute cystitis Hematuria presence: without hematuria Qualified Code(s): N30.00 - Acute cystitis without hematuria Is this a current diagnosis for this admission?: Yes Plan: Day 2 of Rocephin- follow up on cultures (4) Benzodiazepine dependence, continuous Is this a current diagnosis for this admission?: Yes (5) DVT prophylaxis Is this a current diagnosis for this admission?: Yes Plan: TEDs (6) Dehydration Is this a current diagnosis for this admission?: Yes (7) Diabetes mellitus Qualifiers: Diabetes mellitus type: other specified (including CHAO) Diabetes mellitus care home insulin use: with long term care social worker use Is this a current diagnosis for this admission?: Yes Plan: above (8) COPD (chronic obstructive pulmonary disease) Qualifiers: COPD type: unspecified COPD Qualified Code(s): J44.9 - Chronic obstructive pulmonary disease, unspecified Is this a current diagnosis for this admission?: Yes Plan: Stable not in exacerbation, nebs prn (9) Tobacco use disorder Is this a current diagnosis for this admission?: Yes Plan: Nicotine patch (10) Nausea and vomiting Is this a current diagnosis for this admission?: Yes Plan: Likely secondary to gastroparesis due to diabetes. Continue IV fluids, antiemetics as needed. - Time Time Spent with patient: 25-34 minutes
[2018-02-27] MEDS: LANSOPRAZOLE 30 MG TAB.RAP.DR PO SCH (17:26)
[2018-02-27] MEDS ORDERED: (PENDING PHARMACY ID) (Lansoprazole [Prevacid] 30 MG) PO SCH (18:00)
[2018-02-27] MEDS: ZOLPIDEM TARTRATE 5 MG TABLET PO SCH (21:44)
[2018-02-28] MEDS: POTASSI CL 40 MEQ/NS 1L 1,000 ML IV PRN ×2 (01:35→10:12)
[2018-02-28] MEDS: LANSOPRAZOLE 30 MG TAB.RAP.DR PO SCH ×2 (05:48→16:57)
[2018-02-28] MEDS: GABAPENTIN 300 MG CAPSULE PO SCH ×3 (05:48→22:49)
[2018-02-28] MEDS: HYDROCODONE/ACETAMINOPHEN 10-325 MG TABLET PO PRN ×3 (05:48→18:43)
[2018-02-28 09:45] LABS: ABSOLUTE EOSINOPHILS # (AUTO) 0.2 10^3/uL (0.0-0.6); ABSOLUTE LYMPHOCYTES (AUTO) 1.1 10^3/uL (0.5-4.7); ABSOLUTE MONOCYTES (AUTO) 0.2 10^3/uL (0.1-1.4); ABSOLUTE NEUT (AUTO) 1.4 10^3/uL (1.7-8.2); ANION GAP 9 (5-19); BASOPHILS % (AUTO) 1.3 % (0-2); BLOOD UREA NITROGEN 5 mg/dL (7-20); CALCIUM 9.1 mg/dL (8.4-10.2); CARBON DIOXIDE 21 mmol/L (22-30); CHLORIDE 114 mmol/L (98-107); EOSINOPHILS % (AUTO) 5.7 % (0-6); GLUCOSE 226 mg/dL (75-110); HEMATOCRIT 35.7 % (36.0-47.0); LYMPHOCYTES % (AUTO) 37.7 % (13-45); MEAN CORPUSCULAR HEMOGLOBIN 24.5 pg (27.0-33.4); MEAN CORPUSCULAR HGB CONC 30.9 g/dL (32.0-36.0); MEAN CORPUSCULAR VOLUME 79 fl (80-97); MONOCYTES % (AUTO) 6.9 % (3-13); PHOSPHORUS 2.4 mg/dL (2.5-4.5); PLATELET COUNT 132 10^3/uL (150-450); POTASSIUM 5.1 mmol/L (3.6-5.0); RED BLOOD COUNT 4.51 10^6/uL (3.72-5.28); SEGMENTED NEUTROPHILS % (AUTO) 48.4 % (42-78); SODIUM 143.5 mmol/L (137-145); TOTAL CELLS COUNTED % (AUTO) 100 %; WHITE BLOOD COUNT 2.9 10^3/uL (4.0-10.5)
[2018-02-28 10:04] LABS: LIPASE 28.9 U/L (23-300)
[2018-02-28] MEDS: CEFTRIAXONE SODIUM 1,000 MG in DEXTROSE 5%-WATER 50 ML IV SCH (10:12)
[2018-02-28] MEDS: LACTOBACILLUS ACIDOPHILUS 250 MG TAB PO SCH (11:41)
[2018-02-28] MEDS: SUCRALFATE 1 GM TABLET PO SCH ×4 (11:41→22:49)
[2018-02-28] MEDS: AMLODIPINE BESYLATE 5 MG TABLET PO SCH (11:42)
[2018-02-28] MEDS: NICOTINE 21 MG/24 HR PATCH.TD24 TD SCH (11:43)
[2018-02-28] MEDS: INSULIN GLARGINE,HUM.REC.ANLOG 300 UNIT/3 ML INSULN.PEN SUBCUT SCH ×2 (11:50→23:01)
[2018-02-28] MEDS ORDERED: HYDROCODONE/ACETAMINOPHEN 5-325 MG TABLET PO ONE (11:54)
[2018-02-28] MEDS ORDERED: HYDROCODONE/ACETAMINOPHEN 5-325 MG (6 TAB/ER DISP) PO PRN (11:55)
[2018-02-28] MEDS: INSULIN LISPRO 100 UNIT/ML 3 ML VIAL SUBCUT PRN ×3 (12:21→23:02)
[2018-02-28] MEDS ORDERED: IPRATROPIUM/ALBUTEROL 120 PUFF/4 GM MDI IH ONE (14:00)
--- NOTE | 2018-02-28 14:38 | PDOC PROGRESS REPORT ---
Subjective Progress Note for:: 02/28/18 Subjective:: 62 year old female with past medical history of Anxiety Insulin-dependent diabetes C. difficile colitis Tobacco dependence COPD Hypertension GERD Depression Arthritis She presented to the hospital complaining of abdominal pain and diarrhea and was found to have hypotension, hypokalemia and a UTI with hyperglycemia. She was treated with IV fluids and antibiotics. Stool C. difficile is positive. She continues to complain of diarrhea and nausea. Reason For Visit: UTI DEHYDRATION HYPERGLYCEMIA Physical Exam Vital Signs: Temp Pulse Resp BP Pulse Ox 98.1 F 78 16 109/71 98 02/28/18 11:32 02/28/18 11:32 02/28/18 11:32 02/28/18 11:32 02/28/18 11:32 Intake & Output 02/27/18 02/28/18 03/01/18 06:59 06:59 06:59 Intake Total 3754 Output Total 2950 Balance 804 Weight 53.8 kg General appearance: PRESENT: mild distress, thin Head exam: PRESENT: atraumatic Eye exam: ABSENT: scleral icterus Ear exam: PRESENT: normal external ear exam Mouth exam: PRESENT: moist Teeth exam: PRESENT: edentulous Neck exam: ABSENT: tracheal deviation Respiratory exam: PRESENT: rhonchi, symmetrical, unlabored Cardiovascular exam: PRESENT: RRR GI/Abdominal exam: PRESENT: normal bowel sounds, soft, tenderness - She cries out with light touch of her abdomen however when I press the status scope down firmly on her abdomen she does not wince. Rectal exam: PRESENT: deferred Gentrourinary exam: ABSENT: indwelling catheter Extremities exam: ABSENT: pedal edema Neurological exam: PRESENT: alert, awake, oriented to person, oriented to place , oriented to time, oriented to situation Psychiatric exam: PRESENT: anxious Focused psych exam: PRESENT: restlessness Skin exam: ABSENT: rash Results Laboratory Results: 02/28/18 08:45 02/28/18 08:45 02/28/18 02/28/18 02/28/18 08:45 08:45 08:45 WBC 2.9 L RBC 4.51 Hgb 11.0 L Hct 35.7 L MCV 79 L MCH 24.5 L MCHC 30.9 L RDW 18.0 H Plt Count 132 L Seg Neutrophils % 48.4 Lymphocytes % 37.7 Monocytes % 6.9 Eosinophils % 5.7 Basophils % 1.3 Absolute Neutrophils 1.4 L Absolute Lymphocytes 1.1 Absolute Monocytes 0.2 Absolute Eosinophils 0.2 Absolute Basophils 0.0 Sodium 143.5 Potassium 5.1 H Chloride 114 H Carbon Dioxide 21 L Anion Gap 9 BUN 5 L Creatinine 0.55 Est GFR ( Amer) > 60 Est GFR (Non-Af Amer) > 60 Glucose 226 H Lactic Acid 1.8 Calcium 9.1 Phosphorus 2.4 L Magnesium 1.7 Lipase 28.9 Assessment & Plan - Diagnosis (1) Hyperglycemia Is this a current diagnosis for this admission?: Yes Plan: Continue Lantus and Aspart sliding scale. We will need diabetes education. (2) Hypotension Qualifiers: Hypotension type: unspecified hypotension type Qualified Code(s): I95.9 - Hypotension, unspecified Is this a current diagnosis for this admission?: Yes Plan: Resolved with IV fluids. (3) UTI (urinary tract infection) Qualifiers: Urinary tract infection type: acute cystitis Hematuria presence: without hematuria Qualified Code(s): N30.00 - Acute cystitis without hematuria Is this a current diagnosis for this admission?: Yes Plan: Switched to Levaquin based on urine culture results. (4) Benzodiazepine dependence, continuous Is this a current diagnosis for this admission?: Yes Plan: Continue Xanax as needed for anxiety (5) DVT prophylaxis Is this a current diagnosis for this admission?: Yes Plan: TEDs (6) Dehydration Is this a current diagnosis for this admission?: Yes Plan: Resolved. Stop IV fluids. (7) Diabetes mellitus Qualifiers: Diabetes mellitus type: other specified (including CHAO) Diabetes mellitus terminal superintendent insulin use: with care home use Is this a current diagnosis for this admission?: Yes Plan: As above (8) COPD (chronic obstructive pulmonary disease) Qualifiers: COPD type: unspecified COPD Qualified Code(s): J44.9 - Chronic obstructive pulmonary disease, unspecified Is this a current diagnosis for this admission?: Yes Plan: Stable not in exacerbation, nebs prn (9) Tobacco use disorder Is this a current diagnosis for this admission?: Yes Plan: Nicotine patch (10) Nausea and vomiting Is this a current diagnosis for this admission?: Yes Plan: Likely secondary to gastroparesis due to diabetes. Continue antiemetics as needed. (11) Clostridium difficile diarrhea Is this a current diagnosis for this admission?: Yes Plan: Start Flagyl (12) Hypokalemia Is this a current diagnosis for this admission?: Yes Plan: Resolved. Stop potassium supplements. Continue to monitor. - Time Time Spent with patient: 25-34 minutes
[2018-02-28] MEDS: ALPRAZOLAM 0.5 MG TABLET PO PRN ×2 (16:58→22:49)
[2018-02-28] MEDS: METRONIDAZOLE 500 MG/NS RTU 100 ML IV SCH ×2 (17:01→22:49)
[2018-02-28] MEDS: LEVOFLOXACIN 250 MG TABLET PO SCH (17:01)
[2018-02-28] MEDS: HYDROCODONE/ACETAMINOPHEN 5-325 MG TABLET PO PRN (18:42)
[2018-02-28] MEDS: ZOLPIDEM TARTRATE 5 MG TABLET PO SCH (22:49)
[2018-02-28] MEDS: IPRATROPIUM/ALBUTEROL 120 PUFF/4 GM MDI IH SCH (22:50)
[2018-03-01] MEDS: HYDROCODONE/ACETAMINOPHEN 10-325 MG TABLET PO PRN ×4 (00:12→19:27)
[2018-03-01] MEDS: HYDROCODONE/ACETAMINOPHEN 5-325 MG TABLET PO PRN ×2 (00:12→06:44)
[2018-03-01 04:55] LABS: HEMATOCRIT 29.9 % (36.0-47.0); HEMOGLOBIN 9.6 g/dL (12.0-15.5); MEAN CORPUSCULAR HEMOGLOBIN 25.1 pg (27.0-33.4); MEAN CORPUSCULAR VOLUME 78 fl (80-97); PLATELET COUNT 100 10^3/uL (150-450); RED BLOOD COUNT 3.82 10^6/uL (3.72-5.28); RED CELL DISTRIBUTION WIDTH 17.8 % (11.5-14.0); WHITE BLOOD COUNT 3.2 10^3/uL (4.0-10.5)
[2018-03-01 05:24] LABS: ANION GAP 7 (5-19); BLOOD UREA NITROGEN 9 mg/dL (7-20); CARBON DIOXIDE 22 mmol/L (22-30); CHLORIDE 110 mmol/L (98-107); GLUCOSE 201 mg/dL (75-110); PHOSPHORUS 3.3 mg/dL (2.5-4.5); POTASSIUM 4.2 mmol/L (3.6-5.0)
[2018-03-01] MEDS: GABAPENTIN 300 MG CAPSULE PO SCH ×3 (06:44→22:39)
[2018-03-01] MEDS: METRONIDAZOLE 500 MG/NS RTU 100 ML IV SCH ×4 (06:44→23:27)
[2018-03-01] MEDS: LANSOPRAZOLE 30 MG TAB.RAP.DR PO SCH ×2 (06:44→17:34)
[2018-03-01] MEDS: INSULIN LISPRO 100 UNIT/ML 3 ML VIAL SUBCUT PRN ×4 (07:37→22:41)
[2018-03-01] MEDS: INSULIN GLARGINE,HUM.REC.ANLOG 300 UNIT/3 ML INSULN.PEN SUBCUT SCH ×2 (09:29→22:40)
[2018-03-01] MEDS: ALPRAZOLAM 0.5 MG TABLET PO PRN ×2 (09:29→22:39)
[2018-03-01] MEDS: NICOTINE 21 MG/24 HR PATCH.TD24 TD SCH (09:29)
[2018-03-01] MEDS: SUCRALFATE 1 GM TABLET PO SCH ×4 (09:29→22:39)
[2018-03-01] MEDS: AMLODIPINE BESYLATE 5 MG TABLET PO SCH (09:29)
[2018-03-01] MEDS: IPRATROPIUM/ALBUTEROL 120 PUFF/4 GM MDI IH SCH ×2 (09:29→22:39)
[2018-03-01] MEDS: LACTOBACILLUS ACIDOPHILUS 250 MG TAB PO SCH (09:29)
--- NOTE | 2018-03-01 14:38 | PDOC PROGRESS REPORT ---
Subjective Progress Note for:: 03/01/18 Subjective:: This AM complaining of lower abdominal pain. Feels that pain is worse with movement. Continues to have loose stools. Nausea is improved. Trouble with eating due to symptoms but wants to keep trying to eat. Requesting more pain medications. Denies fevers, chills. Reason For Visit: UTI DEHYDRATION HYPERGLYCEMIA Physical Exam Vital Signs: Temp Pulse Resp BP Pulse Ox 97.6 F 88 17 109/66 98 03/01/18 07:36 03/01/18 07:36 03/01/18 07:36 03/01/18 07:36 03/01/18 07:36 Intake & Output 02/28/18 03/01/18 03/02/18 06:59 06:59 06:59 Intake Total 3754 2473 Output Total 2950 1750 Balance 804 723 Weight 53.8 kg 57.4 kg General appearance: PRESENT: no acute distress, cooperative, thin Head exam: PRESENT: normocephalic Mouth exam: PRESENT: moist Respiratory exam: PRESENT: unlabored Cardiovascular exam: PRESENT: +S1, +S2. ABSENT: tachycardia GI/Abdominal exam: PRESENT: normal bowel sounds, soft, tenderness - Bilateral suprapubic tenderness, very mild to deep palpation Neurological exam: PRESENT: alert, awake, CN II-XII grossly intact Psychiatric exam: PRESENT: appropriate affect Skin exam: PRESENT: intact Results Laboratory Results: 03/01/18 04:36 03/01/18 04:36 03/01/18 03/01/18 04:36 04:36 WBC 3.2 L RBC 3.82 Hgb 9.6 L Hct 29.9 L MCV 78 L MCH 25.1 L MCHC 32.0 RDW 17.8 H Plt Count 100 L Sodium 139.0 Potassium 4.2 Chloride 110 H Carbon Dioxide 22 Anion Gap 7 BUN 9 Creatinine 0.59 Est GFR ( Amer) > 60 Est GFR (Non-Af Amer) > 60 Glucose 201 H Calcium 9.0 Phosphorus 3.3 Magnesium 1.6 Lipase 41.0 Assessment & Plan - Diagnosis (1) UTI (urinary tract infection) Qualifiers: Urinary tract infection type: acute cystitis Hematuria presence: without hematuria Qualified Code(s): N30.00 - Acute cystitis without hematuria Is this a current diagnosis for this admission?: Yes Plan: Urine culture positive for Staph epi, sensitivies reviewed - Blood cultures negative - Currently on Levaquin 250mg. Should complete 7 days - Complaining of suprapubic tenderness today. Unclear if this is UTI or C diff related. If continues on 03/02, would repeat UA (2) C. difficile colitis Is this a current diagnosis for this admission?: Yes (3) Diabetes Qualifiers: Diabetes mellitus type: type 2 Diabetes mellitus custodial insulin use: without custodial use Diabetes mellitus complication status: without complication Qualified Code(s): E11.9 - Type 2 diabetes mellitus without complications Is this a current diagnosis for this admission?: Yes Plan: Hg A1c this admission: 10.6% - Has been on Lantus with improvement in BS however sugars remain elevated. Increased Lantus to 30U BID on 03/01 - Continue LDISS - Needs diabetes education (4) Hypertension Qualifiers: Hypertension type: essential hypertension Qualified Code(s): I10 - Essential (primary) hypertension Is this a current diagnosis for this admission?: Yes Plan: BP's better controlled. Was started on Norvasc this admission. Discontinued today - If BP meds are needed, would consider starting ARB/MARCUS-i due to history of DM. - Time Time Spent with patient: Less than 15 minutes Anticipated discharge: Home Within: within 48 hours
[2018-03-01] MEDS: OXYCODONE HCL IR 5 MG TABLET PO PRN (14:41)
[2018-03-01] MEDS: LEVOFLOXACIN 250 MG TABLET PO SCH (17:34)
[2018-03-01] MEDS: ZOLPIDEM TARTRATE 5 MG TABLET PO SCH (22:39)
[2018-03-01] MEDS: PROMETHAZINE HCL 25 MG TABLET PO PRN (23:29)
[2018-03-02] MEDS: OXYCODONE HCL IR 5 MG TABLET PO PRN ×3 (02:50→20:23)
[2018-03-02] MEDS: HYDROCODONE/ACETAMINOPHEN 10-325 MG TABLET PO PRN ×4 (02:50→20:23)
[2018-03-02] MEDS: METRONIDAZOLE 500 MG/NS RTU 100 ML IV SCH ×4 (05:22→23:59)
[2018-03-02] MEDS: GABAPENTIN 300 MG CAPSULE PO SCH ×3 (05:22→21:10)
[2018-03-02] MEDS: LANSOPRAZOLE 30 MG TAB.RAP.DR PO SCH ×2 (05:22→18:28)
[2018-03-02] MEDS: LACTOBACILLUS ACIDOPHILUS 250 MG TAB PO SCH (09:09)
[2018-03-02] MEDS: SUCRALFATE 1 GM TABLET PO SCH ×4 (09:09→21:10)
[2018-03-02] MEDS: INSULIN GLARGINE,HUM.REC.ANLOG 300 UNIT/3 ML INSULN.PEN SUBCUT SCH ×2 (09:10→21:11)
[2018-03-02] MEDS: IPRATROPIUM/ALBUTEROL 120 PUFF/4 GM MDI IH SCH ×2 (09:11→21:13)
[2018-03-02] MEDS: NICOTINE 21 MG/24 HR PATCH.TD24 TD SCH (09:11)
[2018-03-02] MEDS: INSULIN LISPRO 100 UNIT/ML 3 ML VIAL SUBCUT PRN ×4 (09:11→21:12)
--- NOTE | 2018-03-02 14:58 | RADIOLOGY REPORT (SQ) ---
EXAM DESCRIPTION: KUB/ABDOMEN (SINGLE VIEW) COMPLETED DATE/TIME: 03/02/2018 2:42 pm REASON FOR STUDY: abdominal pain COMPARISON: CT abdomen and pelvis 01/22/2018, 01/03/2018 Abdominal ultrasound 10/02/2017 NUMBER OF VIEWS: One view. TECHNIQUE: Supine radiographic image of the abdomen acquired. LIMITATIONS: None. FINDINGS: BOWEL GAS PATTERN: Moderate gaseous distension of the stomach. There is air in nondistend ed colon and small bowel. CALCIFICATIONS: No suspicious calcifications. SOFT TISSUES: No gross mass or suggestion of organomegaly. HARDWARE: Javed catheter in the bladder. BONES: Osteoporotic with L2 compression deformity, unchanged from 01/22/2018. OTHER: No other significant finding. IMPRESSION: Gastric distention. Otherwise unremarkable bowel gas pattern. Javed catheter in the bladder TECHNICAL DOCUMENTATION: JOB ID: [id number] [employer]- All Rights Reserved Reading location - IP/workstation name: [email or web address]
[2018-03-02] MEDS: VANCOMYCIN HCL INJ 500 MG VIAL PO SCH (18:27)
[2018-03-02] MEDS: NYSTATIN TOPICAL POWDER 15 GM TP SCH (18:30)
[2018-03-02] MEDS: LEVOFLOXACIN 250 MG TABLET PO SCH (18:36)
[2018-03-02] MEDS: ZOLPIDEM TARTRATE 5 MG TABLET PO SCH (21:11)
--- NOTE | 2018-03-02 23:24 | PDOC PROGRESS REPORT ---
Subjective Progress Note for:: 03/02/18 Subjective:: 62 year old female with past medical history of anxiety, insulin-dependent diabetes, C. difficile colitis history, tobacco dependence, COPD, hypertension, GERD, depression and arthritis. Presented complaining of abdominal pain and diarrhea was found to have hypotension hypokalemia and a urinary tract infection. Found to have a urinary tract infection. Was given IV antibiotics and IV fluid support. C. difficile testing was positive. Sending for the additional C. difficile AB testing. Continue antibiotic treatment at present. Checking KUB. C. difficile treatment timeline is not started given the fact that she is continuing to receive urinary tract infection antibiotics at present. Reason For Visit: UTI DEHYDRATION HYPERGLYCEMIA Physical Exam Vital Signs: Temp Pulse Resp BP Pulse Ox 98.3 F 107 H 16 121/74 98 03/02/18 19:19 03/02/18 19:19 03/02/18 19:19 03/02/18 19:19 03/02/18 19:19 Intake & Output 03/01/18 03/02/18 03/03/18 06:59 06:59 06:59 Intake Total 2473 1514 839 Output Total 1750 950 625 Balance 723 564 214 Weight 57.4 kg 58.3 kg General appearance: PRESENT: no acute distress, cooperative Head exam: PRESENT: atraumatic, normocephalic Eye exam: PRESENT: EOMI Ear exam: PRESENT: normal external ear exam. ABSENT: drainage Mouth exam: PRESENT: moist, neck supple Throat exam: PRESENT: tonsillar erythema, tonsillar exudate Neck exam: PRESENT: JVD. ABSENT: full ROM, meningismus Respiratory exam: ABSENT: rales, rhonchi, wheezes Cardiovascular exam: PRESENT: RRR, +S1, +S2 Pulses: PRESENT: normal radial pulses, normal dorsalis pedis pul Vascular exam: PRESENT: normal capillary refill. ABSENT: pallor GI/Abdominal exam: PRESENT: normal bowel sounds, soft. ABSENT: rigid Extremities exam: ABSENT: clubbing, joint swelling Musculoskeletal exam: PRESENT: full ROM. ABSENT: deformity Neurological exam: PRESENT: alert, oriented to person, oriented to place, oriented to time, oriented to situation Psychiatric exam: ABSENT: agitated, anxious Focused psych exam: ABSENT: delusional, paranoid Skin exam: PRESENT: normal color. ABSENT: mottled Results Laboratory Results: 03/01/18 04:36 03/01/18 04:36 Impressions: KUB X-Ray 03/02/18 00:00 IMPRESSION: Gastric distention. Otherwise unremarkable bowel gas pattern. Javed catheter in the bladder Assessment & Plan - Diagnosis (1) UTI (urinary tract infection) Qualifiers: Urinary tract infection type: acute cystitis Hematuria presence: without hematuria Qualified Code(s): N30.00 - Acute cystitis without hematuria Is this a current diagnosis for this admission?: Yes Plan: continue current antibiotics present. (2) C. difficile colitis Is this a current diagnosis for this admission?: Yes Plan: adding PO Vancomycin to flagyl treatment given her worsened abdominal pain picture. Check KUB for signs of toxic megacolon. (3) Dehydration Is this a current diagnosis for this admission?: Yes Plan: improved after IVF rehydration. - Time Time Spent with patient: 15-24 minutes - Inpatient Certification I certify that my determination is in accordance with my understanding of Medicare's requirements for reasonable and necessary INPATIENT services [42 CFR 412.3e].: Yes Medical Necessity: Need Close Monitoring Due to Risk of Patient Decompensation
[2018-03-03] MEDS: VANCOMYCIN HCL INJ 500 MG VIAL PO SCH ×4 (00:35→17:37)
[2018-03-03] MEDS: HYDROCODONE/ACETAMINOPHEN 10-325 MG TABLET PO PRN (02:11)
[2018-03-03] MEDS: OXYCODONE HCL IR 5 MG TABLET PO PRN ×4 (02:12→21:28)
[2018-03-03 05:04] LABS: ABSOLUTE EOSINOPHILS # (AUTO) 0.3 10^3/uL (0.0-0.6); ABSOLUTE MONOCYTES (AUTO) 0.4 10^3/uL (0.1-1.4); ABSOLUTE NEUT (AUTO) 1.4 10^3/uL (1.7-8.2); BASOPHILS % (AUTO) 0.6 % (0-2); EOSINOPHILS % (AUTO) 8.8 % (0-6); HEMATOCRIT 28.5 % (36.0-47.0); HEMOGLOBIN 9.1 g/dL (12.0-15.5); LYMPHOCYTES % (AUTO) 31.2 % (13-45); MEAN CORPUSCULAR HEMOGLOBIN 25.1 pg (27.0-33.4); MEAN CORPUSCULAR HGB CONC 31.9 g/dL (32.0-36.0); MEAN CORPUSCULAR VOLUME 79 fl (80-97); MONOCYTES % (AUTO) 13.3 % (3-13); RED BLOOD COUNT 3.63 10^6/uL (3.72-5.28); RED CELL DISTRIBUTION WIDTH 18.7 % (11.5-14.0); SEGMENTED NEUTROPHILS % (AUTO) 46.1 % (42-78); TOTAL CELLS COUNTED % (AUTO) 100 %
[2018-03-03] MEDS: METRONIDAZOLE 500 MG/NS RTU 100 ML IV SCH ×3 (05:35→17:36)
[2018-03-03] MEDS: GABAPENTIN 300 MG CAPSULE PO SCH ×3 (05:35→21:28)
[2018-03-03] MEDS: LANSOPRAZOLE 30 MG TAB.RAP.DR PO SCH ×2 (05:35→17:38)
[2018-03-03 05:45] LABS: ALBUMIN 2.7 g/dL (3.5-5.0); ANION GAP 8 (5-19); BLOOD UREA NITROGEN 6 mg/dL (7-20); CALCIUM 9.1 mg/dL (8.4-10.2); CARBON DIOXIDE 25 mmol/L (22-30); CHLORIDE 110 mmol/L (98-107); GLUCOSE 115 mg/dL (75-110); PHOSPHORUS 3.2 mg/dL (2.5-4.5); POTASSIUM 3.3 mmol/L (3.6-5.0); SODIUM 142.8 mmol/L (137-145)
[2018-03-03 05:51] LABS: PLATELET COUNT 90 10^3/uL (150-450)
[2018-03-03] MEDS: SUCRALFATE 1 GM TABLET PO SCH ×4 (10:28→21:29)
[2018-03-03] MEDS: LACTOBACILLUS ACIDOPHILUS 250 MG TAB PO SCH (10:28)
[2018-03-03] MEDS: INSULIN GLARGINE,HUM.REC.ANLOG 300 UNIT/3 ML INSULN.PEN SUBCUT SCH ×2 (10:29→21:48)
[2018-03-03] MEDS: NYSTATIN TOPICAL POWDER 15 GM TP SCH ×2 (10:29→17:40)
[2018-03-03] MEDS: NICOTINE 21 MG/24 HR PATCH.TD24 TD SCH (10:29)
[2018-03-03] MEDS: IPRATROPIUM/ALBUTEROL 120 PUFF/4 GM MDI IH SCH ×2 (10:31→21:48)
[2018-03-03] MEDS ORDERED: HYDROMORPHONE HCL INJ/PF 2 MG/ML AMPULE IV ONE ×2 (10:45→15:45)
[2018-03-03] MEDS: ALPRAZOLAM 0.5 MG TABLET PO PRN ×2 (12:07→21:48)
[2018-03-03] MEDS: INSULIN LISPRO 100 UNIT/ML 3 ML VIAL SUBCUT PRN ×2 (12:22→18:17)
[2018-03-03] MEDS ORDERED: POTASSIUM CHLORIDE 10 MEQ CAPSULE.ER PO ONE (16:24)
[2018-03-03] MEDS: OXYBUTYNIN CHLORIDE 5 MG TABLET PO SCH (17:38)
[2018-03-03] MEDS: LEVOFLOXACIN 250 MG TABLET PO SCH (17:47)
[2018-03-03] MEDS: HYDROMORPHONE HCL INJ/PF 2 MG/ML AMPULE IV PRN (20:45)
[2018-03-03] MEDS: ZOLPIDEM TARTRATE 5 MG TABLET PO SCH (21:29)
--- NOTE | 2018-03-03 23:23 | PDOC PROGRESS REPORT ---
Subjective Progress Note for:: 03/03/18 Subjective:: 62 year old female with past medical history of anxiety, insulin-dependent diabetes, C. difficile colitis history, tobacco dependence, COPD, hypertension, GERD, depression and arthritis. Presented complaining of abdominal pain and diarrhea was found to have hypotension hypokalemia and a urinary tract infection. Was given IV antibiotics and IV fluid support. C. difficile testing was positive. Sending for the additional C. difficile AB testing. Continue antibiotic treatment at present. Checking KUB. C. difficile treatment timeline is not started given the fact that she is continuing to receive urinary tract infection antibiotics at present. Reason For Visit: UTI DEHYDRATION HYPERGLYCEMIA Physical Exam Vital Signs: Temp Pulse Resp BP Pulse Ox 98.3 F 99 16 133/79 H 95 03/03/18 19:00 03/03/18 19:00 03/03/18 19:00 03/03/18 19:00 03/03/18 19:00 Intake & Output 03/02/18 03/03/18 03/04/18 06:59 06:59 06:59 Intake Total 1514 3836 1422 Output Total 950 2525 1325 Balance 564 1311 97 Weight 58.3 kg 58.1 kg General appearance: PRESENT: cooperative, mild distress Head exam: PRESENT: atraumatic, normocephalic Eye exam: PRESENT: EOMI Ear exam: PRESENT: normal external ear exam. ABSENT: drainage Mouth exam: PRESENT: moist, neck supple Throat exam: ABSENT: tonsillar erythema, tonsillar exudate Neck exam: PRESENT: full ROM. ABSENT: JVD Respiratory exam: ABSENT: rales, rhonchi, wheezes Cardiovascular exam: PRESENT: RRR, +S1, +S2 Pulses: PRESENT: normal radial pulses, normal dorsalis pedis pul Vascular exam: ABSENT: normal capillary refill, pallor GI/Abdominal exam: PRESENT: normal bowel sounds, soft. ABSENT: rigid Extremities exam: ABSENT: joint swelling, pedal edema Musculoskeletal exam: PRESENT: full ROM. ABSENT: deformity Neurological exam: PRESENT: alert, oriented to person, oriented to place, oriented to time, oriented to situation Psychiatric exam: ABSENT: agitated, anxious Focused psych exam: ABSENT: delusional, paranoid Skin exam: PRESENT: normal color. ABSENT: mottled Results Laboratory Results: 03/03/18 04:45 03/03/18 03:50 03/03/18 03/03/18 03:50 04:45 WBC 3.0 L RBC 3.63 L Hgb 9.1 L Hct 28.5 L MCV 79 L MCH 25.1 L MCHC 31.9 L RDW 18.7 H Plt Count 90 L Seg Neutrophils % 46.1 Lymphocytes % 31.2 Monocytes % 13.3 H Eosinophils % 8.8 H Basophils % 0.6 Absolute Neutrophils 1.4 L Absolute Lymphocytes 1.0 Absolute Monocytes 0.4 Absolute Eosinophils 0.3 Absolute Basophils 0.0 Sodium 142.8 Potassium 3.3 L Chloride 110 H Carbon Dioxide 25 Anion Gap 8 BUN 6 L Creatinine 0.59 Est GFR ( Amer) > 60 Est GFR (Non-Af Amer) > 60 Glucose 115 H Calcium 9.1 Phosphorus 3.2 Albumin 2.7 L Impressions: KUB X-Ray 03/02/18 00:00 IMPRESSION: Gastric distention. Otherwise unremarkable bowel gas pattern. Javed catheter in the bladder Assessment & Plan - Diagnosis (1) UTI (urinary tract infection) Qualifiers: Urinary tract infection type: acute cystitis Hematuria presence: without hematuria Qualified Code(s): N30.00 - Acute cystitis without hematuria Is this a current diagnosis for this admission?: Yes Plan: Continue antibiotic for UTI, target 5 days in total adding oxybutinin for abdominal crampy pain. (2) C. difficile colitis Is this a current diagnosis for this admission?: Yes Plan: unfortnately, day 1 or her 14 days on C.Diff treatment would start after her UTI antibiotics are completed, tomorrow. Send out lab for the Toxins a/b have been placed. PCR testing was positive. She does describe multiple copeous bowel movements in the last 24 hours. continue IV flagyl and PO Vancomycin at present. (3) Dehydration Is this a current diagnosis for this admission?: Yes Plan: encouraged oral fluids today. (4) Abdominal pain Is this a current diagnosis for this admission?: Yes Plan: abdominal pain complaint. unclear if she is seeking for narcotics. giving prn pain medication and starting oxybutynin. (5) Hypokalemia Is this a current diagnosis for this admission?: Yes Plan: giving replacements - Time Time Spent with patient: 15-24 minutes - Inpatient Certification I certify that my determination is in accordance with my understanding of Medicare's requirements for reasonable and necessary INPATIENT services [42 CFR 412.3e].: Yes Medical Necessity: Need Close Monitoring Due to Risk of Patient Decompensation
[2018-03-04] MEDS: METRONIDAZOLE 500 MG/NS RTU 100 ML IV SCH ×5 (00:49→23:38)
[2018-03-04] MEDS: HYDROMORPHONE HCL INJ/PF 2 MG/ML AMPULE IV PRN ×6 (00:49→22:55)
[2018-03-04] MEDS: VANCOMYCIN HCL INJ 500 MG VIAL PO SCH ×5 (00:49→23:38)
[2018-03-04] MEDS: OXYCODONE HCL IR 5 MG TABLET PO PRN ×3 (05:00→19:49)
[2018-03-04] MEDS: GABAPENTIN 300 MG CAPSULE PO SCH ×3 (05:00→22:55)
[2018-03-04] MEDS: LANSOPRAZOLE 30 MG TAB.RAP.DR PO SCH ×2 (05:01→17:38)
[2018-03-04 06:49] LABS: HEMATOCRIT 30.4 % (36.0-47.0); HEMOGLOBIN 9.8 g/dL (12.0-15.5); MEAN CORPUSCULAR HEMOGLOBIN 25.3 pg (27.0-33.4); MEAN CORPUSCULAR HGB CONC 32.2 g/dL (32.0-36.0); MEAN CORPUSCULAR VOLUME 79 fl (80-97); RED BLOOD COUNT 3.87 10^6/uL (3.72-5.28); WHITE BLOOD COUNT 2.8 10^3/uL (4.0-10.5)
[2018-03-04 06:53] LABS: ANION GAP 11 (5-19); BLOOD UREA NITROGEN 6 mg/dL (7-20); CARBON DIOXIDE 22 mmol/L (22-30); CHLORIDE 106 mmol/L (98-107); GLUCOSE 271 mg/dL (75-110); PHOSPHORUS 2.9 mg/dL (2.5-4.5); POTASSIUM 3.7 mmol/L (3.6-5.0)
[2018-03-04 07:12] LABS: PLATELET COUNT 97 10^3/uL (150-450)
[2018-03-04] MEDS: INSULIN LISPRO 100 UNIT/ML 3 ML VIAL SUBCUT PRN ×4 (08:45→23:00)
[2018-03-04] MEDS: NICOTINE 21 MG/24 HR PATCH.TD24 TD SCH (09:24)
[2018-03-04] MEDS: INSULIN GLARGINE,HUM.REC.ANLOG 300 UNIT/3 ML INSULN.PEN SUBCUT SCH ×2 (09:24→22:59)
[2018-03-04] MEDS: NYSTATIN TOPICAL POWDER 15 GM TP SCH ×2 (09:25→17:39)
[2018-03-04] MEDS: OXYBUTYNIN CHLORIDE 5 MG TABLET PO SCH ×3 (09:25→17:38)
[2018-03-04] MEDS: LACTOBACILLUS ACIDOPHILUS 250 MG TAB PO SCH (09:25)
[2018-03-04] MEDS: IPRATROPIUM/ALBUTEROL 120 PUFF/4 GM MDI IH SCH ×2 (09:25→22:55)
[2018-03-04] MEDS: SUCRALFATE 1 GM TABLET PO SCH ×4 (09:56→22:55)
[2018-03-04] MEDS: LEVOFLOXACIN 250 MG TABLET PO SCH (17:38)
[2018-03-04] MEDS ORDERED: DEXTROSE 40% GEL 15 GM TUBE PO PRN (20:02)
[2018-03-04] MEDS ORDERED: GLUCAGON,HUMAN RECOMB 1 MG INJ IM PRN (20:02)
[2018-03-04] MEDS ORDERED: DEXTROSE 50%-WATER SYRINGE 25 GM/50 ML DOSE IV PRN (20:02)
[2018-03-04] MEDS ORDERED: DEXTROSE 50%-WATER SYRINGE 12.5 GM/25 ML DOSE IV PRN (20:02)
[2018-03-04] MEDS ORDERED: DEXTROSE 40% GEL 15 GM TUBE X 2 PO PRN (20:02)
--- NOTE | 2018-03-04 20:39 | PDOC PROGRESS REPORT ---
Subjective Progress Note for:: 03/04/18 Subjective:: Still with loose stools and abdominal cramps. No nausea vomiting, denies fever or chills. Reports dysuria is better. Reason For Visit: UTI DEHYDRATION HYPERGLYCEMIA Physical Exam Vital Signs: Temp Pulse Resp BP Pulse Ox 97.8 F 99 20 116/75 99 03/04/18 19:34 03/04/18 19:34 03/04/18 19:34 03/04/18 19:34 03/04/18 19:34 Intake & Output 03/03/18 03/04/18 03/05/18 06:59 06:59 06:59 Intake Total 3836 2622 1483 Output Total 2525 2825 1625 Balance 1311 -203 -142 Weight 58.1 kg 57.4 kg GEN: NAD, well-developed, well-nourished CV: RRR, NL S1S2 LUNGS: CTA bilaterally ABDOMEN Soft, mild diffuse tenderness, no rebound or guarding, +BS EXTERMITIES: No e/c/c NEURO: Alert, oriented 3, no acute weakness Results Laboratory Results: 03/04/18 06:14 03/04/18 06:14 03/04/18 03/04/18 06:14 06:14 WBC 2.8 L RBC 3.87 Hgb 9.8 L Hct 30.4 L MCV 79 L MCH 25.3 L MCHC 32.2 RDW 19.0 H Plt Count 97 L Sodium 139.0 Potassium 3.7 Chloride 106 Carbon Dioxide 22 Anion Gap 11 BUN 6 L Creatinine 0.50 L Est GFR ( Amer) > 60 Est GFR (Non-Af Amer) > 60 Glucose 271 H Calcium 9.0 Phosphorus 2.9 Albumin 3.0 L 03/02/18 13:39 Stool - Stool Clostridium difficile Toxin A&B (M) - Final Impressions: KUB X-Ray 03/02/18 00:00 IMPRESSION: Gastric distention. Otherwise unremarkable bowel gas pattern. Javed catheter in the bladder Assessment & Plan - Plan Summary Plan Summary: (1) UTI (urinary tract infection) Qualifiers: Urinary tract infection type: acute cystitis Hematuria presence: without hematuria Qualified Code(s): N30.00 - Acute cystitis without hematuria Is this a current diagnosis for this admission?: Yes Plan: Continue antibiotic for UTI for now Continue oxybutinin for abdominal crampy pain. (2) C. difficile colitis Is this a current diagnosis for this admission?: Yes Plan: continue IV flagyl and PO Vancomycin at present. (3) Dehydration Is this a current diagnosis for this admission?: Yes Plan: encouraged oral fluids today. (4) Abdominal pain Is this a current diagnosis for this admission?: Yes Plan: On prn pain medication and starting oxybutynin. (5) Hypokalemia Is this a current diagnosis for this admission?: Yes Plan: Improved. Continue to monitor electrolytes.
[2018-03-04] MEDS: ZOLPIDEM TARTRATE 5 MG TABLET PO SCH (22:55)
[2018-03-04] MEDS: ALPRAZOLAM 0.5 MG TABLET PO PRN (23:08)
[2018-03-05] MEDS: HYDROMORPHONE HCL INJ/PF 2 MG/ML AMPULE IV PRN ×5 (04:25→21:10)
[2018-03-05 05:44] LABS: ABSOLUTE EOSINOPHILS # (AUTO) 0.3 10^3/uL (0.0-0.6); ABSOLUTE LYMPHOCYTES (AUTO) 0.9 10^3/uL (0.5-4.7); ABSOLUTE MONOCYTES (AUTO) 0.4 10^3/uL (0.1-1.4); ABSOLUTE NEUT (AUTO) 1.4 10^3/uL (1.7-8.2); BASOPHILS % (AUTO) 0.6 % (0-2); EOSINOPHILS % (AUTO) 9.6 % (0-6); HEMATOCRIT 30.9 % (36.0-47.0); HEMOGLOBIN 9.7 g/dL (12.0-15.5); LYMPHOCYTES % (AUTO) 29.5 % (13-45); MEAN CORPUSCULAR HEMOGLOBIN 24.6 pg (27.0-33.4); MEAN CORPUSCULAR HGB CONC 31.5 g/dL (32.0-36.0); MEAN CORPUSCULAR VOLUME 78 fl (80-97); MONOCYTES % (AUTO) 14.5 % (3-13); RED BLOOD COUNT 3.96 10^6/uL (3.72-5.28); SEGMENTED NEUTROPHILS % (AUTO) 45.8 % (42-78); TOTAL CELLS COUNTED % (AUTO) 100 %; WHITE BLOOD COUNT 3.1 10^3/uL (4.0-10.5)
[2018-03-05 05:56] LABS: ANION GAP 9 (5-19); BLOOD UREA NITROGEN 7 mg/dL (7-20); CALCIUM 9.2 mg/dL (8.4-10.2); CARBON DIOXIDE 28 mmol/L (22-30); CHLORIDE 104 mmol/L (98-107); GLUCOSE 196 mg/dL (75-110); POTASSIUM 3.8 mmol/L (3.6-5.0); SODIUM 140.7 mmol/L (137-145)
[2018-03-05 06:40] LABS: PLATELET COUNT 98 10^3/uL (150-450)
[2018-03-05] MEDS: GABAPENTIN 300 MG CAPSULE PO SCH ×3 (06:44→21:09)
[2018-03-05] MEDS: VANCOMYCIN HCL INJ 500 MG VIAL PO SCH ×4 (06:44→23:26)
[2018-03-05] MEDS: METRONIDAZOLE 500 MG/NS RTU 100 ML IV SCH ×4 (06:44→23:26)
[2018-03-05] MEDS: OXYCODONE HCL IR 5 MG TABLET PO PRN ×2 (06:44→18:31)
[2018-03-05] MEDS: LANSOPRAZOLE 30 MG TAB.RAP.DR PO SCH ×2 (06:44→17:03)
[2018-03-05] MEDS: INSULIN LISPRO 100 UNIT/ML 3 ML VIAL SUBCUT PRN ×3 (06:54→21:19)
[2018-03-05] MEDS: OXYBUTYNIN CHLORIDE 5 MG TABLET PO SCH ×3 (11:18→17:02)
[2018-03-05] MEDS: SUCRALFATE 1 GM TABLET PO SCH ×4 (11:18→21:09)
[2018-03-05] MEDS: LACTOBACILLUS ACIDOPHILUS 250 MG TAB PO SCH (11:18)
[2018-03-05] MEDS: NICOTINE 21 MG/24 HR PATCH.TD24 TD SCH (11:19)
[2018-03-05] MEDS: IPRATROPIUM/ALBUTEROL 120 PUFF/4 GM MDI IH SCH ×2 (11:19→21:19)
[2018-03-05] MEDS: INSULIN GLARGINE,HUM.REC.ANLOG 300 UNIT/3 ML INSULN.PEN SUBCUT SCH ×2 (11:20→21:14)
[2018-03-05] MEDS: NYSTATIN TOPICAL POWDER 15 GM TP SCH ×2 (12:49→17:10)
[2018-03-05] MEDS: LEVOFLOXACIN 250 MG TABLET PO SCH (17:02)
--- NOTE | 2018-03-05 19:47 | PDOC PROGRESS REPORT ---
Subjective Progress Note for:: 03/05/18 Subjective:: Still with loose stools and abdominal cramps, but feels slightly better today. No nausea vomiting, denies fever or chills. Reports dysuria is better. Reason For Visit: UTI DEHYDRATION HYPERGLYCEMIA Physical Exam Vital Signs: Temp Pulse Resp BP Pulse Ox 99.1 F 106 H 19 129/71 H 99 03/05/18 16:08 03/05/18 16:08 03/05/18 16:08 03/05/18 16:08 03/05/18 16:08 Intake & Output 03/04/18 03/05/18 03/06/18 06:59 06:59 06:59 Intake Total 2622 2635 1316 Output Total 2825 2975 650 Balance -203 -340 666 Weight 57.4 kg 54.6 kg GEN: NAD, well-developed, well-nourished CV: RRR, NL S1S2 LUNGS: CTA bilaterally ABDOMEN Soft, mild diffuse tenderness, no rebound or guarding, +BS EXTERMITIES: No e/c/c NEURO: Alert, oriented 3, no acute weakness Results Laboratory Results: 03/05/18 04:13 03/05/18 04:13 03/05/18 03/05/18 04:13 04:13 WBC 3.1 L RBC 3.96 Hgb 9.7 L Hct 30.9 L MCV 78 L MCH 24.6 L MCHC 31.5 L RDW 19.0 H Plt Count 98 L Seg Neutrophils % 45.8 Lymphocytes % 29.5 Monocytes % 14.5 H Eosinophils % 9.6 H Basophils % 0.6 Absolute Neutrophils 1.4 L Absolute Lymphocytes 0.9 Absolute Monocytes 0.4 Absolute Eosinophils 0.3 Absolute Basophils 0.0 Sodium 140.7 Potassium 3.8 Chloride 104 Carbon Dioxide 28 Anion Gap 9 BUN 7 Creatinine 0.52 Est GFR ( Amer) > 60 Est GFR (Non-Af Amer) > 60 Glucose 196 H Calcium 9.2 Impressions: KUB X-Ray 03/02/18 00:00 IMPRESSION: Gastric distention. Otherwise unremarkable bowel gas pattern. Javed catheter in the bladder Assessment & Plan - Plan Summary Plan Summary: (1) UTI (urinary tract infection) Qualifiers: Urinary tract infection type: acute cystitis Hematuria presence: without hematuria Qualified Code(s): N30.00 - Acute cystitis without hematuria Is this a current diagnosis for this admission?: Yes Plan: Urine culture with staph epididymidis. Complete antibiotic antibiotics course of Levaquin Continue oxybutinin for abdominal crampy pain. (2) C. difficile colitis Is this a current diagnosis for this admission?: Yes Plan: continue IV flagyl and PO Vancomycin at present. (3) Dehydration Is this a current diagnosis for this admission?: Yes Plan: encouraged oral fluids. (4) Abdominal pain Is this a current diagnosis for this admission?: Yes Plan: On prn pain medication and starting oxybutynin. (5) Hypokalemia Is this a current diagnosis for this admission?: Yes Plan: Improved. Continue to monitor electrolytes.
[2018-03-05] MEDS: ZOLPIDEM TARTRATE 5 MG TABLET PO SCH (21:09)
[2018-03-05] MEDS: ALPRAZOLAM 0.5 MG TABLET PO PRN (23:26)
[2018-03-06] MEDS: METRONIDAZOLE 500 MG/NS RTU 100 ML IV SCH ×2 (05:20→11:42)
[2018-03-06] MEDS: HYDROMORPHONE HCL INJ/PF 2 MG/ML AMPULE IV PRN ×2 (05:20→11:42)
[2018-03-06] MEDS: VANCOMYCIN HCL INJ 500 MG VIAL PO SCH ×2 (05:20→11:43)
[2018-03-06] MEDS: GABAPENTIN 300 MG CAPSULE PO SCH ×2 (05:20→13:25)
[2018-03-06] MEDS: LANSOPRAZOLE 30 MG TAB.RAP.DR PO SCH (05:20)
[2018-03-06] MEDS: INSULIN LISPRO 100 UNIT/ML 3 ML VIAL SUBCUT PRN ×2 (06:42→13:24)
[2018-03-06 06:46] LABS: ABSOLUTE EOSINOPHILS # (AUTO) 0.3 10^3/uL (0.0-0.6); ABSOLUTE LYMPHOCYTES (AUTO) 0.7 10^3/uL (0.5-4.7); ABSOLUTE MONOCYTES (AUTO) 0.5 10^3/uL (0.1-1.4); ABSOLUTE NEUT (AUTO) 1.7 10^3/uL (1.7-8.2); BASOPHILS % (AUTO) 0.8 % (0-2); EOSINOPHILS % (AUTO) 10.2 % (0-6); HEMATOCRIT 31.1 % (36.0-47.0); HEMOGLOBIN 9.9 g/dL (12.0-15.5); LYMPHOCYTES % (AUTO) 21.5 % (13-45); MEAN CORPUSCULAR HGB CONC 31.9 g/dL (32.0-36.0); MEAN CORPUSCULAR VOLUME 78 fl (80-97); MONOCYTES % (AUTO) 16.2 % (3-13); PLATELET COUNT 113 10^3/uL (150-450); RED BLOOD COUNT 3.98 10^6/uL (3.72-5.28); RED CELL DISTRIBUTION WIDTH 18.9 % (11.5-14.0); SEGMENTED NEUTROPHILS % (AUTO) 51.3 % (42-78); TOTAL CELLS COUNTED % (AUTO) 100 %; WHITE BLOOD COUNT 3.3 10^3/uL (4.0-10.5)
[2018-03-06 07:06] LABS: ANION GAP 8 (5-19); BLOOD UREA NITROGEN 9 mg/dL (7-20); CALCIUM 9.1 mg/dL (8.4-10.2); CARBON DIOXIDE 30 mmol/L (22-30); CHLORIDE 103 mmol/L (98-107); GLUCOSE 237 mg/dL (75-110); POTASSIUM 4.7 mmol/L (3.6-5.0); SODIUM 140.6 mmol/L (137-145)
[2018-03-06] MEDS: SUCRALFATE 1 GM TABLET PO SCH (09:38)
[2018-03-06] MEDS: LACTOBACILLUS ACIDOPHILUS 250 MG TAB PO SCH (09:38)
[2018-03-06] MEDS: OXYBUTYNIN CHLORIDE 5 MG TABLET PO SCH ×2 (09:38→13:25)
[2018-03-06] MEDS: INSULIN GLARGINE,HUM.REC.ANLOG 300 UNIT/3 ML INSULN.PEN SUBCUT SCH (09:38)
[2018-03-06] MEDS: OXYCODONE HCL IR 5 MG TABLET PO PRN (09:38)
[2018-03-06] MEDS: NYSTATIN TOPICAL POWDER 15 GM TP SCH (09:39)
[2018-03-06] MEDS: NICOTINE 21 MG/24 HR PATCH.TD24 TD SCH (09:39)
[2018-03-06] MEDS: IPRATROPIUM/ALBUTEROL 120 PUFF/4 GM MDI IH SCH (09:39)
[2018-03-06 11:52] VITALS: BP 136/85
--- NOTE | 2018-03-06 18:09 | PDOC DISCHARGE SUMMARY ---
General - Admit/Disc Date/PCP Admission Date/Primary Care Provider: 02/27/18 08:41 Discharge Date: 03/06/18 - Discharge Diagnosis (1) Abdominal pain Is this a current diagnosis for this admission?: Yes (2) C. difficile colitis Is this a current diagnosis for this admission?: Yes (3) UTI (urinary tract infection) Is this a current diagnosis for this admission?: Yes (4) Dehydration Is this a current diagnosis for this admission?: Yes (5) Diabetes mellitus Is this a current diagnosis for this admission?: Yes (6) Hypokalemia Is this a current diagnosis for this admission?: Yes - Additional Information Resuscitation Status: Full Code Discharge Diet: Diabetic Discharge Activity: Activity As Tolerated, Balance Activity w/Rest Prescriptions: Hydrocodone/Acetaminophen [Alma 10-325 mg Tablet] 1 tab PO QIDP PRN #12 tablet PRN Reason: For Pain Vancomycin HCl 250 mg PO Q6H #10 capsule Home Medications: Alprazolam [Xanax] 2 mg PO QIDP PRN 02/26/18 Etanercept [Enbrel] 50 mg PO TH@1000 02/26/18 Gabapentin [Neurontin 300 mg Capsule] 300 mg PO TID 02/26/18 Insulin Glargine,Hum.rec.anlog [Lantus Insulin 100 Unit/1 ml 10 ml] 30 unit SQ BID 02/26/18 Insulin Lispro [Humalog Insulin (Lispro) 100 unit/mL] 1 unit SQ ACHS 02/26/18 Ipratropium/Albuterol Sulfate [Combivent Respimat 4 gm Mdi] 2 puff IH QID Lansoprazole [Prevacid] 30 mg PO BID@02/26/18 Potassium Chloride [K-Tab ER] 40 meq PO BID 02/26/18 Promethazine HCl 12.5 mg PO TIDP PRN 02/26/18 Rabeprazole Sodium [Aciphex] 20 mg PO BID 02/26/18 Sucralfate [Carafate 1 gm Tablet] 1 gm PO QID 02/26/18 Zolpidem Tartrate [Ambien 5 mg Tablet] 10 mg PO QHS 02/26/18 Acetaminophen [Tylenol 325 mg Tablet] 650 mg PO Q4HP PRN tablet 03/06/18 Hydrocodone/Acetaminophen [Alma 10-325 mg Tablet] 1 tab PO QIDP PRN #12 tablet 03/06/18 Vancomycin HCl 250 mg PO Q6H #10 capsule 03/06/18 History of Present Illness Patient complains of: Abdominal pain History of Present Illness: 62-year-old female presents with complaints of generalized weakness. Patient is a diabetic EMS noted blood sugar 568, she notes she last checked her blood sugar yesterday has not taken her sliding scale today. Patient also notes she has had multiple episodes of C. difficile in the past unsure if she has it again today. Patient found hypotensive initial blood pressure 80/52 heart rate 107 respiratory rate 30 given LR bolus 400 cc prior to arrival Hospital Course Hospital Course: Patient was admitted to the telemetry floor. She was started on IV Levaquin for her UTI. Stool sent for C. difficile. This returned positive. He was started on oral vancomycin and IV Flagyl. She was given as needed analgesics for her abdominal pain. She had a Javed catheter placed. She was slow to progress. She continued to complain of diffuse abdominal pain. She was seen by physical therapy and increased her activity with rolling walker. Case management was consulted. Today on hospital day 7 she feels improved. She has completed her antibiotic therapy for UTI. She has 2-1/2 more days of oral vancomycin. Her stools are now formed. She will continue taking oral lactobacillus post discharge. She will follow-up next week with her primary care provider. She will be followed by home health nursing and physical therapy. Physical Exam Vital Signs: Temp Pulse Resp BP Pulse Ox 98.4 F 113 H 18 136/85 H 98 03/06/18 11:51 03/06/18 11:51 03/06/18 11:51 03/06/18 11:51 03/06/18 11:51 Intake & Output 03/05/18 03/06/18 03/07/18 06:59 06:59 06:59 Intake Total 2635 1966 Output Total 2975 1370 Balance -340 596 Weight 54.6 kg 55.2 kg General appearance: PRESENT: no acute distress, well-developed, well-nourished Head exam: PRESENT: atraumatic, normocephalic Eye exam: PRESENT: conjunctiva pink, EOMI, PERRLA. ABSENT: scleral icterus Ear exam: PRESENT: normal external ear exam Mouth exam: PRESENT: moist, tongue midline Neck exam: ABSENT: carotid bruit, JVD, lymphadenopathy, thyromegaly Respiratory exam: PRESENT: clear to auscultation megan. ABSENT: rales, rhonchi, wheezes Cardiovascular exam: PRESENT: RRR. ABSENT: diastolic murmur, rubs, systolic murmur Pulses: PRESENT: normal dorsalis pedis pul Vascular exam: PRESENT: normal capillary refill GI/Abdominal exam: PRESENT: normal bowel sounds, soft. ABSENT: distended, guarding, mass, organolmegaly, rebound, tenderness Rectal exam: PRESENT: deferred Extremities exam: PRESENT: full ROM. ABSENT: calf tenderness, clubbing, pedal edema Neurological exam: PRESENT: alert, awake, oriented to person, oriented to place , oriented to time, oriented to situation, CN II-XII grossly intact. ABSENT: motor sensory deficit Psychiatric exam: PRESENT: appropriate affect, normal mood. ABSENT: homicidal ideation, suicidal ideation Skin exam: PRESENT: dry, intact, warm. ABSENT: cyanosis, rash Results Laboratory Results: 03/06/18 05:33 03/06/18 05:33 03/06/18 03/06/18 05:33 05:33 WBC 3.3 L RBC 3.98 Hgb 9.9 L Hct 31.1 L MCV 78 L MCH 25.0 L MCHC 31.9 L RDW 18.9 H Plt Count 113 L Seg Neutrophils % 51.3 Lymphocytes % 21.5 Monocytes % 16.2 H Eosinophils % 10.2 H Basophils % 0.8 Absolute Neutrophils 1.7 Absolute Lymphocytes 0.7 Absolute Monocytes 0.5 Absolute Eosinophils 0.3 Absolute Basophils 0.0 Sodium 140.6 Potassium 4.7 Chloride 103 Carbon Dioxide 30 Anion Gap 8 BUN 9 Creatinine 0.45 L Est GFR ( Amer) > 60 Est GFR (Non-Af Amer) > 60 Glucose 237 H Calcium 9.1 Impressions: KUB X-Ray 03/02/18 00:00 IMPRESSION: Gastric distention. Otherwise unremarkable bowel gas pattern. Javed catheter in the bladder Qualifiers - * PATIENT BEING DISCHARGED WITH ANY OF THE FOLLOWING DIAGNOSIS: No Plan Discharge Plan: Home with her son. She will have home health physical therapy nursing. Follow up with her primary care provider next week. Time Spent: Less than 30 Minutes
== END 2018-03-06 15:35 | disposition home health service (06) | DRG 690 ==
LOC: ER 15:26 → EH 17:30 → UNDOADMIN 17:30 → EH 17:40 → INTOOBSV 17:45 → EH 17:45 → 4N 19:50 → OBSVTOIN 02-27 08:41 → UNDODISIN 03-02 15:26
PROVIDERS: ADMIT Internal Medicine; ATTEND Internal Medicine
DX: N30.00 Acute cystitis without hematuria (principal); A04.72 Enterocolitis due to Clostridium difficile, not specified as recurrent; F13.20 Sedative, hypnotic or anxiolytic dependence, uncomplicated; I95.9 Hypotension, unspecified; E10.65 Type 1 diabetes mellitus with hyperglycemia; K21.9 Gastro-esophageal reflux disease without esophagitis; J44.9 Chronic obstructive pulmonary disease, unspecified; E86.0 Dehydration; E87.6 Hypokalemia; B95.7 Other staphylococcus as the cause of diseases classified elsewhere; F17.210 Nicotine dependence, cigarettes, uncomplicated; Z79.4 Long term (current) use of insulin; Z79.899 Other long term (current) drug therapy
CPT/HCPCS: 36415; 51701; 74018; 80048; 80053; 80069; 81001; 82272; 82803; 82962; 83036; 83605; 83690; 83735; 84100; 84443; 85025; 85027; 85610; 87040; 87045; 87086; 87088; 87186; 87205; 87324; 87493; 89055; 93005; 93010; 96361; 96365; 99291; G0378; J0690; J0696; J1170; J1815; J2405; J3370; J3480; J3490; J7030

== ENCOUNTER 2018-03-09 12:02 | Inpatient (IN) | payer MEDICAID ==
--- NOTE | 2018-03-09 12:39 | ER Document Report ---
ED Medical Screen (RME) - General Chief Complaint: Nausea/Vomiting/Diarrhea Stated Complaint: VOMITING,DIARRHEA Time Seen by Provider: 03/09/18 12:33 Notes: 62-year-old female patient with poorly controlled diabetes, on high-dose narcotics and benzodiazepines for chronic pain and chronic anxiety, with known C. difficile colitis problems. She was seen on 01/01/2018 and a low, she was admitted on 01/03/2018 for C. difficile, admitted again on 01/22/2018 for C. difficile, was seen 1 more time the emergency room with her diarrhea. She was again admitted on 02/27/2018 and discharged yesterday. She states that her symptoms have gotten worse since she was discharged. TRAVEL OUTSIDE OF THE [place] IN LAST 30 DAYS: No - Related Data Allergies/Adverse Reactions: No Known Drug Allergies Allergy (Mild, Verified 03/09/18 12:03) Past Medical History - Social History Family history: None - pt adopted - Past Medical History Cardiac Medical History: Reports: Hx Hypertension Denies: Hx Congestive Heart Failure, Hx DVT, Hx Heart Attack, Hx Hypercholesterolemia, Hx Pulmonary Embolism Pulmonary Medical History: Reports: Hx Bronchitis, Hx COPD, Hx Pneumonia Denies: Hx Asthma Neurological Medical History: Reports: Hx Migraine. Denies: Hx Cerebrovascular Accident, Hx Seizures Endocrine Medical History: Reports: Hx Diabetes Mellitus Type 1. Denies: Hx Diabetes Mellitus Type 2, Hx Hyperthyroidism, Hx Hypothyroidism Renal/ Medical History: Denies: Hx Peritoneal Dialysis Malignancy Medical History: Reports: Hx Ovarian Cancer, Hx Skin Cancer GI Medical History: Reports: Hx Gastroesophageal Reflux Disease, Hx Hiatal Hernia, Hx Ulcer. Denies: Hx Cirrhosis, Hx Hepatitis, Hx Pancreatitis Musculoskeltal Medical History: Reports Hx Arthritis, Reports Hx Multiple Sclerosis, Reports Hx Musculoskeletal Deformity, Reports Hx Musculoskeletal Trauma Skin Medical History: Reports Hx Psoriasis Psychiatric Medical History: Reports: Hx Anxiety, Hx Depression - Traumatic Medical History: Reports: Hx Fractures - Bilateral humerus Infectious Medical History: Reports: Hx C-Diff. Denies: Hx Hepatitis Past Surgical History: Reports: Hx Genitourinary Surgery - Bladder, Hx Orthopedic Surgery - Right wrist, Hx Tubal Ligation, Other - cataract sx bilaterally.. Denies: Hx Hysterectomy, Hx Mastectomy, Hx Open Heart Surgery, Hx Pacemaker - Immunizations Immunizations up to date: Yes Hx Diphtheria, Pertussis, Tetanus Vaccination: Yes History of Influenza Vaccine for 06/2017 - 11/2017 Season: Yes Influenza Administration Date for 06/2017 - 11/2017 Season: 06/15/17 Physical Exam - Vital signs Vitals: Temp Pulse Resp BP Pulse Ox 98.8 F 109 H 18 190/109 H 98 03/09/18 12:18 03/09/18 12:18 03/09/18 12:18 03/09/18 12:18 03/09/18 12:18 Course - Vital Signs Vital signs: Temp Pulse Resp BP Pulse Ox 98.8 F 109 H 18 190/109 H 98 03/09/18 12:18 03/09/18 12:18 03/09/18 12:18 03/09/18 12:18 03/09/18 12:18
[2018-03-09 13:39] LABS: ABSOLUTE BASOPHILS # (AUTO) 0.1 10^3/uL (0.0-0.2); ABSOLUTE LYMPHOCYTES (AUTO) 1.1 10^3/uL (0.5-4.7); ABSOLUTE MONOCYTES (AUTO) 0.6 10^3/uL (0.1-1.4); ABSOLUTE NEUT (AUTO) 6.9 10^3/uL (1.7-8.2); BASOPHILS % (AUTO) 0.7 % (0-2); EOSINOPHILS % (AUTO) 0.4 % (0-6); HEMOGLOBIN 13.1 g/dL (12.0-15.5); LYMPHOCYTES % (AUTO) 13.1 % (13-45); MEAN CORPUSCULAR HEMOGLOBIN 24.8 pg (27.0-33.4); MEAN CORPUSCULAR VOLUME 78 fl (80-97); MONOCYTES % (AUTO) 7.4 % (3-13); PLATELET COUNT 307 10^3/uL (150-450); RED BLOOD COUNT 5.29 10^6/uL (3.72-5.28); RED CELL DISTRIBUTION WIDTH 18.9 % (11.5-14.0); SEGMENTED NEUTROPHILS % (AUTO) 78.4 % (42-78); TOTAL CELLS COUNTED % (AUTO) 100 %; WHITE BLOOD COUNT 8.7 10^3/uL (4.0-10.5)
[2018-03-09 13:46] LABS: ALANINE AMINOTRANSFERASE 38 U/L (9-52); ALBUMIN 4.9 g/dL (3.5-5.0); ALKALINE PHOSPHATASE 232 U/L (38-126); ANION GAP 16 (5-19); ASPARTATE AMINO TRANSFERASE 58 U/L (14-36); BILIRUBIN,DIRECT 0.4 mg/dL (0.0-0.4); BILIRUBIN,TOTAL 0.8 mg/dL (0.2-1.3); BLOOD UREA NITROGEN 7 mg/dL (7-20); CARBON DIOXIDE 26 mmol/L (22-30); CHLORIDE 98 mmol/L (98-107); CREATINE KINASE 22 U/L (30-135); POTASSIUM 4.6 mmol/L (3.6-5.0); SODIUM 139.7 mmol/L (137-145); TOTAL PROTEIN 8.6 g/dL (6.3-8.2)
[2018-03-09] MEDS ORDERED: HYDROMORPHONE HCL INJ/PF 2 MG/ML AMPULE IV ONE (13:55)
[2018-03-09] MEDS ORDERED: ONDANSETRON HCL 8 MG TABLET PO ONE (13:55)
--- NOTE | 2018-03-09 13:55 | ER Document Report ---
ED General - General Mode of Arrival: Wheelchair Information source: Patient TRAVEL OUTSIDE OF THE [place] IN LAST 30 DAYS: No <LETICIA HIGGINBOTHAM - Last Filed: 03/09/18 18:41> <CHINNIYAHZURI - Last Filed: 03/09/18 21:45> - General Chief Complaint: Nausea/Vomiting/Diarrhea Stated Complaint: VOMITING,DIARRHEA Time Seen by Provider: 03/09/18 12:33 Notes: Chief complaint: abdominal pain: History of complain:( obtained from----patient) 62 years old female with a history of chronic pain syndrome, was laying down calmly before he went into the room. And asked what brought her here she started appeared to be crying, complaining of severe abdominal pain. Nauseous. No vomiting or diarrhea. Denies any fever chills or other constitutional symptoms. Denies any dysuria frequency urgency. Onset: Unknown appear, to be chronic Duration: Unknown Severity: Appeared to be severe Quality: Appeared to be sharp Context: Unknown Exacerbating factor and relieving factors: Unknown REVIEW OF SYSTEMS: CONSTITUTIONAL : Denies fever, chills, or sweats. Denies recent illness. EENT: Denies eye, ear, throat, or mouth pain or symptoms. Denies nasal or sinus congestion or discharge. Denies throat, tongue, or mouth swelling or difficulty swallowing. CARDIOVASCULAR: Denies chest pain. Denies palpitations or racing or irregular heart beat. Denies ankle edema. RESPIRATORY: Denies cough, cold, or chest congestion. Denies shortness of breath, difficulty breathing, or wheezing. GASTROINTESTINAL: Denies distention. Denies nausea, vomiting, or diarrhea. Denies blood in vomitus, stools, or per rectum. Denies black, tarry stools. Denies constipation. GENITOURINARY: Denies difficulty urinating, painful urination, burning, frequency, blood in urine, or discharge. FEMALE GENITOURINARY: Denies vaginal bleeding, heavy or abnormal periods, irregular periods. Denies vaginal discharge or odor. MUSCULOSKELETAL: Denies back or neck pain or stiffness. Denies joint pain or swelling. SKIN: Denies rash, lesions or sores. HEMATOLOGIC : Denies easy bruising or bleeding. LYMPHATIC: Denies swollen, enlarged glands. NEUROLOGICAL: Denies confusion or altered mental status. Denies passing out or loss of consciousness. Denies dizziness or lightheadedness. Denies headache. Denies weakness or paralysis or loss of use of either side. Denies problems with gait or speech. Denies sensory loss, numbness, or tingling. Denies seizures. PSYCHIATRIC: Denies anxiety or stress. Denies depression, suicidal ideation, or homicidal ideation. ALL OTHER SYSTEMS REVIEWED AND NEGATIVE. PHYSICAL EXAMINATION: GENERAL: Well-appearing, well-nourished and in no acute distress. HEAD: Atraumatic, normocephalic. EYES: Pupils equal round and reactive to light, extraocular movements intact, conjunctiva are normal. ENT: Nares patent, oropharynx clear without exudates. Moist mucous membranes. NECK: Normal range of motion, supple without lymphadenopathy LUNGS: Breath sounds clear to auscultation bilaterally and equal. No wheezes rales or rhonchi. HEART: Regular rate and rhythm without murmurs ABDOMEN: Soft, questionable tenderness, nondistended abdomen. No guarding, no rebound. No masses appreciated. Female : deferred Musculoskeletal: Normal range of motion, no pitting or edema. No cyanosis. NEUROLOGICAL: Cranial nerves grossly intact. Normal speech, normal gait. Normal sensory, motor exams PSYCH: Normal mood, normal affect. SKIN: Warm, Dry, normal turgor, no rashes or lesions noted. Dictation was performed using [employer] voice recognition software (LETICIA HIGGINBOTHAM) - Related Data Allergies/Adverse Reactions: No Known Drug Allergies Allergy (Mild, Verified 03/09/18 12:03) Past Medical History - Social History Smoking Status: Current Every Day Smoker Chew tobacco use (# tins/day): No Frequency of alcohol use: None Drug Abuse: None Family History: Other - Unknown she is adopted Patient has suicidal ideation: No Patient has homicidal ideation: No - Past Medical History Cardiac Medical History: Reports: Hx Hypertension Denies: Hx Congestive Heart Failure, Hx DVT, Hx Heart Attack, Hx Hypercholesterolemia, Hx Pulmonary Embolism Pulmonary Medical History: Reports: Hx Bronchitis, Hx COPD, Hx Pneumonia Denies: Hx Asthma Neurological Medical History: Reports: Hx Migraine. Denies: Hx Cerebrovascular Accident, Hx Seizures Endocrine Medical History: Reports: Hx Diabetes Mellitus Type 1. Denies: Hx Diabetes Mellitus Type 2, Hx Hyperthyroidism, Hx Hypothyroidism Renal/ Medical History: Denies: Hx Peritoneal Dialysis Malignancy Medical History: Reports: Hx Ovarian Cancer, Hx Skin Cancer GI Medical History: Reports: Hx Gastroesophageal Reflux Disease, Hx Hiatal Hernia, Hx Ulcer. Denies: Hx Cirrhosis, Hx Hepatitis, Hx Pancreatitis Musculoskeltal Medical History: Reports Hx Arthritis, Reports Hx Multiple Sclerosis, Reports Hx Musculoskeletal Deformity, Reports Hx Musculoskeletal Trauma Skin Medical History: Reports Hx Psoriasis Psychiatric Medical History: Reports: Hx Anxiety, Hx Depression - Traumatic Medical History: Reports: Hx Fractures - Bilateral humerus Infectious Medical History: Reports: Hx C-Diff. Denies: Hx Hepatitis Past Surgical History: Reports: Hx Genitourinary Surgery - Bladder, Hx Orthopedic Surgery - Right wrist, Hx Tubal Ligation, Other - cataract sx bilaterally.. Denies: Hx Hysterectomy, Hx Mastectomy, Hx Open Heart Surgery, Hx Pacemaker - Immunizations Immunizations up to date: Yes Hx Diphtheria, Pertussis, Tetanus Vaccination: Yes Hx Pneumococcal Vaccination: 06/15/13 <LETICIA HIGGINBOTHAM - Last Filed: 03/09/18 18:41> Review of Systems <LETICIA HIGGINBOTHAM - Last Filed: 03/09/18 18:41> <ZURI CAMARA - Last Filed: 03/09/18 21:45> - Review of Systems Notes: Dictated (LETICIA HIGGINBOTHAM) Physical Exam <LETICIA HIGGINBOTHAM - Last Filed: 03/09/18 18:41> <ZURI CAMARA - Last Filed: 03/09/18 21:45> - Vital signs Vitals: Temp Pulse Resp BP Pulse Ox 98.8 F 109 H 18 190/109 H 98 03/09/18 12:18 03/09/18 12:18 03/09/18 12:18 03/09/18 12:18 03/09/18 12:18 - Notes Notes: Dictated (LETICIA HIGGINBOTHAM) Course - Laboratory Result Diagrams: 03/09/18 17:35 03/09/18 12:45 <LETICIA HIGGINBOTHAM - Last Filed: 03/09/18 18:41> - Laboratory Result Diagrams: 03/09/18 17:35 03/09/18 12:45 <ZURI CAMARA - Last Filed: 03/09/18 21:45> - Re-evaluation Re-evalutation: 03/09/18 18:42 Lactic acid became positive (LETICIA HIGGINBOTHAM) - Vital Signs Vital signs: Temp Pulse Resp BP Pulse Ox 98.8 F 109 H 17 106/77 97 03/09/18 12:18 03/09/18 12:18 03/09/18 18:01 03/09/18 18:01 03/09/18 18:01 - Laboratory Laboratory results interpreted by me: 03/09/18 03/09/18 03/09/18 12:45 12:45 12:45 RBC 5.29 H Hgb MCV 78 L MCH 24.8 L RDW 18.9 H Seg Neutrophils % 78.4 H Creatinine 0.39 L Glucose 416 H* Lactic Acid 2.9 H AST 58 H Alkaline Phosphatase 232 H Creatine Kinase 22 L Total Protein 8.6 H Urine Protein Urine Glucose (UA) Urine Ketones Ur Leukocyte Esterase 03/09/18 03/09/18 03/09/18 13:25 17:35 17:35 RBC Hgb 11.7 L MCV 77 L MCH 24.8 L RDW 19.0 H Seg Neutrophils % Creatinine Glucose Lactic Acid 3.7 H AST Alkaline Phosphatase Creatine Kinase Total Protein Urine Protein 30 H Urine Glucose (UA) >=500 H Urine Ketones TRACE H Ur Leukocyte Esterase TRACE H Discharge <LETICIA HIGGINBOTHAM - Last Filed: 03/09/18 18:41> - Discharge Admitting Provider: Hospitalist Unit Admitted: Telemetry <ZURI CAMARA - Last Filed: 03/09/18 21:45> - Discharge Clinical Impression: Abdominal pain, acute, Clostridium difficile diarrhea, C. difficile colitis, Elevated lactic acid level Condition: Fair Disposition: ADMITTED INPATIENT Referrals: GIUSEPPE WHITE MD [Primary Care Provider] - Follow up as needed
[2018-03-09 13:59] LABS: GLUCOSE 416 mg/dL (75-110)
[2018-03-09 14:14] LABS: APPEARANCE,URINE SLIGHTLY-CLOUDY; BILIRUBIN,URINE NEGATIVE (NEGATIVE); COLOR,URINE YELLOW; GLUCOSE, URINE >=500 mg/dL (NEGATIVE); KETONES,URINE TRACE mg/dL (NEGATIVE); LEUKOCYTE ESTERASE,URINE TRACE (NEGATIVE); NITRITE,URINE NEGATIVE (NEGATIVE); PROTEIN,URINE 30 mg/dL (NEGATIVE); URINE SPECIFIC GRAVITY 1.028; UROBILINOGEN,URINE NEGATIVE mg/dL (<2.0)
--- NOTE | 2018-03-09 15:52 | RADIOLOGY REPORT (SQ) ---
EXAM DESCRIPTION: KUB/ABDOMEN (SINGLE VIEW) COMPLETED DATE/TIME: 03/09/2018 2:44 pm REASON FOR STUDY: Abdominal pain COMPARISON: 03/02/2018 NUMBER OF VIEWS: One view. TECHNIQUE: Supine radiographic image of the abdomen acquired. LIMITATIONS: None. FINDINGS: BOWEL GAS PATTERN: Normal bowel gas pattern. No dilated loops. CALCIFICATIONS: No suspicious calcifications. SOFT TISSUES: No gross mass or suggestion of organomegaly. HARDWARE: None in the abdomen. BONES: No acute fracture. Chronic findings in the lumbar spine with compression fracture of the L2 v ertebral body, also present on prior CT in April 2017. No worrisome bone lesions. OTHER: No other significant finding. IMPRESSION: NO RADIOGRAPHIC EVIDENCE FOR ACUTE ABDOMINAL DISEASE. TECHNICAL DOCUMENTATION: JOB ID: [id number]- All Rights Reserved Reading location - IP/workstation name: [email or web address]
[2018-03-09] MEDS ORDERED: NORMAL SALINE 1000 ML 1,000 ML IV ONE ×2 (16:23→18:43)
[2018-03-09] MEDS ORDERED: INSULIN LISPRO 100 UNIT/ML 3 ML VIAL SUBCUT ONE (16:24)
[2018-03-09 17:55] LABS: ABSOLUTE BASOPHILS # (AUTO) 0.1 10^3/uL (0.0-0.2); ABSOLUTE LYMPHOCYTES (AUTO) 1.3 10^3/uL (0.5-4.7); ABSOLUTE MONOCYTES (AUTO) 0.6 10^3/uL (0.1-1.4); ABSOLUTE NEUT (AUTO) 4.7 10^3/uL (1.7-8.2); BASOPHILS % (AUTO) 0.9 % (0-2); EOSINOPHILS % (AUTO) 0.5 % (0-6); HEMOGLOBIN 11.7 g/dL (12.0-15.5); LYMPHOCYTES % (AUTO) 19.1 % (13-45); MEAN CORPUSCULAR HEMOGLOBIN 24.8 pg (27.0-33.4); MEAN CORPUSCULAR HGB CONC 32.4 g/dL (32.0-36.0); MEAN CORPUSCULAR VOLUME 77 fl (80-97); MONOCYTES % (AUTO) 9.1 % (3-13); PLATELET COUNT 267 10^3/uL (150-450); RED BLOOD COUNT 4.71 10^6/uL (3.72-5.28); SEGMENTED NEUTROPHILS % (AUTO) 70.4 % (42-78); TOTAL CELLS COUNTED % (AUTO) 100 %; WHITE BLOOD COUNT 6.6 10^3/uL (4.0-10.5)
[2018-03-09] MEDS ORDERED: VANCOMYCIN HCL INJ 1000 MG VIAL IV ONE (18:43)
[2018-03-09] MEDS ORDERED: PIPERACILLIN/TAZOBACTAM 4.5 GM VIAL IV ONE (18:43)
[2018-03-09] MEDS ORDERED: FENTANYL CITRATE INJ/PF 100 MCG/2 ML AMPUL IV ONE (18:45)
[2018-03-09 18:55] LABS: INTERNATIONAL RATION (INR) 1.01; PROTHROMBIN TIME 13.8 SEC (11.4-15.4)
--- NOTE | 2018-03-09 20:06 | RADIOLOGY REPORT (SQ) ---
EXAM DESCRIPTION: CT ABD/PELVIS WITH IV ONLY COMPLETED DATE/TIME: 03/09/2018 7:47 pm REASON FOR STUDY: Abdominal pain rule out obstruction COMPARISON: 01/22/2018 TECHNIQUE: CT scan of the abdomen and pelvis performed using helical scanning technique with dynamic intravenous contrast injection. No oral contrast. Images reviewed with lung, soft tissue, and bone windows. Reconstructed coronal and sagittal MPR images reviewed. Delayed images for evaluation of the urinary system also acquired. All images stored on PACS. All CT scanners at this facility use dose modulation, iterative reconstruction, and/or weight based d osing when appropriate to reduce radiation dose to as low as reasonably achievable (ALARA). [facility]: Dose Right [facility]: CareDose [facility]: Dose Right [facility]: Teradose 4D [facility]: [employer] CONTRAST TYPE AND DOSE: contrast/concentration: Isovue 370.00 mg/ml; Total Contrast Delivered: 55.0 ml; Total Saline Delivered: 65.0 ml RENAL FUNCTION: BUN 7 creatinine 0.39 RADIATION DOSE: CT Rad equipment meets quality standard of care and radiation dose reduction techniq ues were employed. CTDIvol: 4.8 - 5.8 mGy. DLP: 537 mGy-cm.. LIMITATIONS: None. FINDINGS: LOWER CHEST: Prominent hiatal hernia. LIVER: Normal size. No masses. No dilated ducts. SPLEEN: Small cystic lesion inferiorly. No solid masses. PANCREAS: No masses. No significant calcifications. No adjacent inflammation or peripancreatic fluid collections. Pancreatic duct not dilated. GALLBLADDER: No identified stones by CT criteria. No inflammatory changes to suggest cholecystitis. ADRENAL GLANDS: No significant masses or asymmetry. RIGHT KIDNEY AND URETER: No solid masses. No significant calcifications. No hydronephrosis or hyd roureter. LEFT KIDNEY AND URETER: No solid masses. No significant calcifications. No hydronephrosis or hydr oureter. AORTA AND VESSELS: No aneurysm. No dissection. Renal arteries, SMA, celiac without stenosis. RETROPERITONEUM: No retroperitoneal adenopathy, hemorrhage or masses. BOWEL AND PERITONEAL CAVITY: Scattered diverticula with no acute inflammatory changes. APPENDIX: Normal. PELVIS: There is a small amount of air in the urinary bladder. Has the patient been catheterized? ABDOMINAL WALL: No masses. No hernias. BONES: Vertebra plana at L2. Mild compression changes at T12. No interval change. OTHER: No other significant finding. IMPRESSION: 1. Prominent hiatal hernia. 2. Small splenic cyst. 3. Minimal diverticulosis coli. 4. Small amount of air in the urinary bladder as discussed. 5. Osseous findings as described. TECHNICAL DOCUMENTATION: JOB ID: [id number] Quality ID # [id number]: Final reports with documentation of one or more dose reduction techniques (e.g., Au tomated exposure control, adjustment of the mA and/or kV according to patient size, use of iterative reconstruction technique) 2010 [employer]- All Rights Reserved Reading location - IP/workstation name: [email or web address]
[2018-03-09 21:21] LABS: VENOUS BLOOD HCO3 26.8 mmol/L (20-32); VENOUS BLOOD PCO2 42.5 mmHg (35-63); VENOUS BLOOD PH 7.42 (7.30-7.42)
--- NOTE | 2018-03-09 21:41 | ER Document Report ---
Doctor's Note Notes: 03/09/18 21:42 This patient was signed out to me by the previous physician. In summary this is a patient who had an up trending lactate, mild hypotension, generalized abdominal pain and diarrhea. The CT scan was the pending results. I am uncertain of the initial clinical history that was obtained prior to my evaluation I did go and speak with the patient and perform a complete history and physical. In summary this 62-year-old female was recently hospitalized and discharged on 03/06 after having a positive C. difficile colitis PCR test. She was discharged home on oral vancomycin but states the pharmacy was unable to fill this medication so she has been without this medication for the past 3 days. She states the first day post discharge she felt well but then for the past 48 hours has had progressively worsening generalized abdominal cramping, nausea, vomiting and persistent diarrhea. She also reports that she has had a fever at home. On abdominal examination the patient has diffuse abdominal tenderness but no areas of rebound or guarding. It does not appear to be an acute surgical abdomen. The CT scan itself does not show any acute findings. Her labs are notable for an up trending lactate are otherwise unremarkable. I discussed this case with Dr. Tom Villela who is excepted the patient for readmission for ongoing vancomycin therapy to ensure that her C. difficile colitis clears.
[2018-03-09] MEDS ORDERED: ACETAMINOPHEN 325 MG TABLET PO PRN (21:43)
[2018-03-09] MEDS ORDERED: IPRATROPIUM/ALBUTEROL 0.5-2.5 MG/3 ML AMPUL NEB PRN (21:43)
[2018-03-09] MEDS ORDERED: ONDANSETRON HCL INJ/PF 4 MG/2 ML SDV IV PRN (21:43)
[2018-03-09] MEDS ORDERED: DEXTROSE 40% GEL 15 GM TUBE PO PRN ×2 (21:50)
[2018-03-09] MEDS ORDERED: GLUCAGON,HUMAN RECOMB 1 MG INJ IM PRN (21:50)
[2018-03-09] MEDS ORDERED: DEXTROSE 50%-WATER 25 GM/50 ML DISP.SYRIN IV PRN ×2 (21:50)
[2018-03-09] MEDS ORDERED: INSULIN GLARGINE,HUM.REC.ANLOG 300 UNIT/3 ML INSULN.PEN SUBCUT SCH (22:00)
[2018-03-09 22:03] LABS: PHOSPHORUS 3.2 mg/dL (2.5-4.5)
[2018-03-09] MEDS: MORPHINE SULFATE 10 MG/ML INJ IV PRN (22:10)
[2018-03-09] MEDS ORDERED: INSULIN GLARGINE,HUM.REC.ANLOG 300 UNIT/3 ML INSULN.PEN SUBCUT ONE (23:38)
[2018-03-09] MEDS ORDERED: VANCOMYCIN HCL INJ 500 MG VIAL ONE (23:38)
[2018-03-10] MEDS: IPRATROPIUM/ALBUTEROL 0.5-2.5 MG/3 ML AMPUL NEB SCH ×3 (00:12→16:13)
[2018-03-10] MEDS: VANCOMYCIN HCL INJ 500 MG VIAL PO SCH ×6 (00:26→23:02)
[2018-03-10] MEDS: NORMAL SALINE 1000 ML 1,000 ML IV PRN ×3 (00:32→12:48)
[2018-03-10] MEDS ORDERED: VANCOMYCIN HCL INJ 500 MG VIAL ONE (03:43)
[2018-03-10] MEDS: MORPHINE SULFATE 10 MG/ML INJ IV PRN ×2 (03:46→07:35)
[2018-03-10 06:28] LABS: ANION GAP 7 (5-19); BLOOD UREA NITROGEN 9 mg/dL (7-20); CALCIUM 8.2 mg/dL (8.4-10.2); CARBON DIOXIDE 23 mmol/L (22-30); CHLORIDE 110 mmol/L (98-107); GLUCOSE 236 mg/dL (75-110); POTASSIUM 3.9 mmol/L (3.6-5.0); SODIUM 140.3 mmol/L (137-145)
[2018-03-10 06:52] LABS: ABSOLUTE BASOPHILS # (AUTO) 0.1 10^3/uL (0.0-0.2); ABSOLUTE EOSINOPHILS # (AUTO) 0.2 10^3/uL (0.0-0.6); ABSOLUTE MONOCYTES (AUTO) 0.4 10^3/uL (0.1-1.4); ABSOLUTE NEUT (AUTO) 1.7 10^3/uL (1.7-8.2); BASOPHILS % (AUTO) 1.5 % (0-2); EOSINOPHILS % (AUTO) 6.3 % (0-6); HEMATOCRIT 28.1 % (36.0-47.0); LYMPHOCYTES % (AUTO) 31.2 % (13-45); MEAN CORPUSCULAR HEMOGLOBIN 24.7 pg (27.0-33.4); MEAN CORPUSCULAR HGB CONC 31.9 g/dL (32.0-36.0); MEAN CORPUSCULAR VOLUME 77 fl (80-97); MONOCYTES % (AUTO) 10.7 % (3-13); PLATELET COUNT 150 10^3/uL (150-450); RED BLOOD COUNT 3.64 10^6/uL (3.72-5.28); RED CELL DISTRIBUTION WIDTH 19.1 % (11.5-14.0); SEGMENTED NEUTROPHILS % (AUTO) 50.3 % (42-78); TOTAL CELLS COUNTED % (AUTO) 100 %; WHITE BLOOD COUNT 3.4 10^3/uL (4.0-10.5)
[2018-03-10] MEDS: HEPARIN SOD (PORCINE) 5,000 UNIT/ML 1 ML SYRINGE SUBCUT SCH ×3 (06:54→22:56)
[2018-03-10] MEDS: ALPRAZOLAM 0.5 MG TABLET PO PRN (07:35)
[2018-03-10] MEDS ORDERED: GABAPENTIN 300 MG CAPSULE PO SCH (10:00)
[2018-03-10] MEDS ORDERED: INSULIN GLARGINE,HUM.REC.ANLOG 1,000 UNIT/10 ML UNIT SUBCUT SCH (10:00)
[2018-03-10] MEDS: LACTOBACILLUS ACIDOPHILUS 250 MG TAB PO SCH ×2 (10:33→17:53)
[2018-03-10] MEDS ORDERED: CEFUROXIME 500 MG TABLET PO ONE (11:00)
[2018-03-10] MEDS: HYDROCODONE/ACETAMINOPHEN 10-325 MG TABLET PO PRN ×3 (11:57→23:55)
--- NOTE | 2018-03-10 12:20 | PROGRESS NOTE E ---
Progress Note NAME: JAMES MORRIS : 1955 AGE: 62Y DATE: 03/10/2018 ROOM: 431 SUBJECTIVE: The patient is currently lying in bed. She states that she feels about the same as she did when she came in. She is still having watery diarrhea. The patient has been afebrile. Her blood pressure has been in a good range. Still has some abdominal discomfort. No shortness of breath or dizziness and the patient does not voice any other concerns at this time. BRIEF HISTORY: The patient is a 62-year-old female that is well-known to the hospitalist service. The patient was recently admitted and discharged with C. diff colitis, however, the patient was unable to get her vancomycin orally filled from her pharmacy as it had to be ordered. Therefore, the patient missed a couple of days of doses and subsequently bounced back with the C. diff colitis. In the Emergency Department, the patient was found to be quite pale, a glucose of 416. She was making some lactate at 3.7 with findings of gram-negative rods as well in her urine. CT of the abdomen and pelvis was done that was essentially unremarkable, but given the patient's tachycardia, hypotension and need for fluid volume, the patient was referred to the hospitalist for admission and management. REVIEW OF SYSTEMS: The rest of the review of systems is negative. MEDICATIONS: Medications have been reviewed. OBJECTIVE: GENERAL: The patient is 62-year-old female who is awake, alert and oriented to person, place, time, situation. She is verbal, conversational. Does not appear to be distress. VITAL SIGNS: Temperature 97.2, pulse 77, respirations 18, blood pressure 115/77, oxygen saturation 100% on room air. SKIN: Warm and dry with no rash. She is not diaphoretic. The patient is quite pain. HEENT: Pupils equal, round and reactive to light and accommodation. Conjunctivae pain. There is no evidence of JVP. CARDIOVASCULAR: Heart is regular. There is no murmur or rub. CHEST: Clear, symmetrical, unlabored. ABDOMEN: Soft, nontender, nondistended. BACK: No CVA tenderness or sacral edema. EXTREMITIES: No clubbing, cyanosis, or edema. PSYCHIATRIC: Appropriate affect. Pleasant mood. DIAGNOSTICS: Lab studies are as follows. Hematology obtained on 03/10/2018: WBC 3.4, hemoglobin 9, hematocrit 28.1, platelet count is 150. Chemistry obtained on 03/09/2018: Lactic acid of 3.7, phosphorous 3.2, magnesium is 1.8. Troponin is 0.012. IMPRESSION AND PLAN: 1. Clostridium difficile colitis. We will continue with oral vancomycin, probiotic therapy and I have encouraged yogurt with each tray. The patient has had numerous admissions for this dating back to December of this year. Given this ongoing issue, if we can get the patient stable, she could possibly follow up with Dr. Rome on an outpatient basis to be evaluated for stool transplant. 2. Abnormal urinalysis most likely a urinary tract infection. This appears to be gram-negative rods given the patient's past history. We will cover the patient with the most gentle antibiotic I can at this point with a cephalosporin and follow. 3. Diabetes mellitus type 2. The patient's blood glucose was significantly elevated. However, she was definitely dry when she came in. The patient has received some volume, therefore we will christina sugars accordingly. 4. Benzodiazepine dependency continuous. At this point, we will just continue the patient's home medications. 5. Opiate dependence. If continuous again, we will just continue the patient's home medications. CODE STATUS: The patient is a full code. DISPOSITION: Depending on the patient's symptomatology and diagnostic findings, we will reevaluate in the a.m. TIME SPENT: On this follow up including assessment and plan, physical examination, patient education, and review of records is 35 minutes. DICTATING PHYSICIAN: ALICIA TORRES [id number] PHY#: [id number] ID: [id number] JOB#: [id number] ACCT: [id number] cc: >
[2018-03-10] MEDS: GABAPENTIN 300 MG CAPSULE PO SCH ×2 (13:11→22:56)
[2018-03-10] MEDS: INSULIN LISPRO 100 UNIT/ML 3 ML VIAL SUBCUT PRN ×3 (13:15→23:00)
[2018-03-10] MEDS ORDERED: INSULIN REG, HUMAN 100 UNIT/ML 3 ML VIAL (PYX) SUBCUT ONE (14:00)
[2018-03-10] MEDS: NICOTINE 14 MG/24 HR PATCH.TD24 TD PRN (17:53)
[2018-03-10] MEDS: INSULIN GLARGINE,HUM.REC.ANLOG 1,000 UNIT/10 ML UNIT SUBCUT SCH (17:54)
[2018-03-10] MEDS: CEFUROXIME 500 MG TABLET PO SCH (22:56)
[2018-03-10] MEDS ORDERED: INSULIN REG, HUMAN 100 UNIT/ML 3 ML VIAL IV ONE (23:15)
[2018-03-10] MEDS ORDERED: INSULIN REG, HUMAN 100 UNIT/ML 3 ML VIAL (PYX) ONE (23:47)
[2018-03-11] MEDS: IPRATROPIUM/ALBUTEROL 0.5-2.5 MG/3 ML AMPUL NEB SCH ×4 (00:08→23:57)
[2018-03-11 04:46] LABS: ABSOLUTE BASOPHILS # (AUTO) 0.1 10^3/uL (0.0-0.2); ABSOLUTE EOSINOPHILS # (AUTO) 0.3 10^3/uL (0.0-0.6); ABSOLUTE LYMPHOCYTES (AUTO) 0.9 10^3/uL (0.5-4.7); ABSOLUTE MONOCYTES (AUTO) 0.3 10^3/uL (0.1-1.4); ABSOLUTE NEUT (AUTO) 1.6 10^3/uL (1.7-8.2); BASOPHILS % (AUTO) 1.7 % (0-2); HEMATOCRIT 28.1 % (36.0-47.0); HEMOGLOBIN 8.9 g/dL (12.0-15.5); LYMPHOCYTES % (AUTO) 28.7 % (13-45); MEAN CORPUSCULAR HEMOGLOBIN 24.4 pg (27.0-33.4); MEAN CORPUSCULAR HGB CONC 31.6 g/dL (32.0-36.0); MEAN CORPUSCULAR VOLUME 77 fl (80-97); MONOCYTES % (AUTO) 10.4 % (3-13); PLATELET COUNT 147 10^3/uL (150-450); RED BLOOD COUNT 3.64 10^6/uL (3.72-5.28); RED CELL DISTRIBUTION WIDTH 18.6 % (11.5-14.0); SEGMENTED NEUTROPHILS % (AUTO) 50.2 % (42-78); TOTAL CELLS COUNTED % (AUTO) 100 %; WHITE BLOOD COUNT 3.2 10^3/uL (4.0-10.5)
[2018-03-11 05:15] LABS: ANION GAP 7 (5-19); BLOOD UREA NITROGEN 9 mg/dL (7-20); CALCIUM 8.5 mg/dL (8.4-10.2); CARBON DIOXIDE 22 mmol/L (22-30); CHLORIDE 113 mmol/L (98-107); GLUCOSE 105 mg/dL (75-110); POTASSIUM 3.2 mmol/L (3.6-5.0); SODIUM 142.1 mmol/L (137-145)
[2018-03-11] MEDS: HEPARIN SOD (PORCINE) 5,000 UNIT/ML 1 ML SYRINGE SUBCUT SCH ×3 (06:44→22:22)
[2018-03-11] MEDS: VANCOMYCIN HCL INJ 500 MG VIAL PO SCH ×4 (06:47→23:50)
[2018-03-11] MEDS: GABAPENTIN 300 MG CAPSULE PO SCH ×3 (06:48→22:21)
[2018-03-11] MEDS: HYDROCODONE/ACETAMINOPHEN 10-325 MG TABLET PO PRN ×3 (07:48→20:03)
[2018-03-11 08:37] LABS: ABSOLUTE RETICS # 0.073 10^6/uL (0.028-0.122); RETICULOCYTE COUNT (AUTO) 1.99 % (0.66-2.85)
[2018-03-11 08:46] LABS: IRON(TIBC) 21.2 ug/dL (37-170)
[2018-03-11] MEDS ORDERED: POTASSIUM CHLORIDE 10 MEQ CAPSULE.ER PO ONE (09:00)
[2018-03-11] MEDS: INSULIN GLARGINE,HUM.REC.ANLOG 1,000 UNIT/10 ML UNIT SUBCUT SCH ×2 (09:23→17:38)
[2018-03-11] MEDS: CEFUROXIME 500 MG TABLET PO SCH ×2 (09:24→22:22)
[2018-03-11] MEDS: LACTOBACILLUS ACIDOPHILUS 250 MG TAB PO SCH ×2 (09:24→17:36)
[2018-03-11] MEDS ORDERED: INSULIN LISPRO 100 UNIT/ML 3 ML VIAL SUBCUT ONE (12:15)
--- NOTE | 2018-03-11 17:16 | PDOC PROGRESS REPORT ---
Subjective Progress Note for:: 03/11/18 Subjective:: No adverse events overnight. Still having several liquid stools, 3 so far this morning at the time I saw her. No fevers. Not nauseated but not particularly hungry. Her blood sugars have been running high, 1 in the 400s this morning. Reason For Visit: C DIFF COLITIS, HYPOTENSION Physical Exam Vital Signs: Temp Pulse Resp BP Pulse Ox 98.7 F 111 H 20 123/74 100 03/11/18 14:46 03/11/18 14:46 03/11/18 14:46 03/11/18 14:46 03/11/18 14:46 Intake & Output 03/10/18 03/11/18 03/12/18 06:59 06:59 06:59 Intake Total 1950 5608 1265 Balance 1950 5608 1265 Weight 49.6 kg General appearance: PRESENT: no acute distress, disheveled, well-developed Teeth exam: PRESENT: edentulous Respiratory exam: PRESENT: clear to auscultation megan. ABSENT: rales, rhonchi, wheezes Cardiovascular exam: PRESENT: RRR. ABSENT: diastolic murmur, rubs, systolic murmur GI/Abdominal exam: PRESENT: hyperactive bowel sounds, soft. ABSENT: distended, guarding, mass, organolmegaly, rebound, tenderness Extremities exam: ABSENT: clubbing, pedal edema Neurological exam: PRESENT: alert, awake, oriented to person, oriented to place , oriented to time Results Laboratory Results: 03/11/18 04:07 03/11/18 04:07 03/11/18 03/11/18 03/11/18 04:07 04:07 04:07 WBC 3.2 L RBC 3.64 L Hgb 8.9 L Hct 28.1 L MCV 77 L MCH 24.4 L MCHC 31.6 L RDW 18.6 H Plt Count 147 L Seg Neutrophils % 50.2 Lymphocytes % 28.7 Monocytes % 10.4 Eosinophils % 9.0 H Basophils % 1.7 Absolute Neutrophils 1.6 L Absolute Lymphocytes 0.9 Absolute Monocytes 0.3 Absolute Eosinophils 0.3 Absolute Basophils 0.1 Retic Count (auto) 1.99 Absolute Retic 0.073 Sodium 142.1 Potassium 3.2 L Chloride 113 H Carbon Dioxide 22 Anion Gap 7 BUN 9 Creatinine 0.45 L Est GFR ( Amer) > 60 Est GFR (Non-Af Amer) > 60 Glucose 105 Calcium 8.5 Iron TIBC % Saturation Ferritin Vitamin B12 Folate 03/11/18 04:07 WBC RBC Hgb Hct MCV MCH MCHC RDW Plt Count Seg Neutrophils % Lymphocytes % Monocytes % Eosinophils % Basophils % Absolute Neutrophils Absolute Lymphocytes Absolute Monocytes Absolute Eosinophils Absolute Basophils Retic Count (auto) Absolute Retic Sodium Potassium Chloride Carbon Dioxide Anion Gap BUN Creatinine Est GFR ( Amer) Est GFR (Non-Af Amer) Glucose Calcium Iron 21.2 L TIBC 320 % Saturation 7 Ferritin 14.20 Vitamin B12 453.0 Folate 8.30 Impressions: KUB X-Ray 03/09/18 13:54 IMPRESSION: NO RADIOGRAPHIC EVIDENCE FOR ACUTE ABDOMINAL DISEASE. Abdomen/Pelvis CT 03/09/18 18:37 IMPRESSION: 1. Prominent hiatal hernia. 2. Small splenic cyst. 3. Minimal diverticulosis coli. 4. Small amount of air in the urinary bladder as discussed. 5. Osseous findings as described. Assessment & Plan - Diagnosis (1) C. difficile colitis Is this a current diagnosis for this admission?: Yes Plan: Currently on higher dose oral vancomycin 4 times a day because of her recurrence having not had her antibiotic for 3 or 4 days after she left the hospital last time. We will pay close attention to her clinical response, including electrolytes and volume status. (2) Anemia Qualifiers: Anemia type: iron deficiency Iron deficiency anemia type: inadequate dietary iron intake Qualified Code(s): D50.8 - Other iron deficiency anemias Is this a current diagnosis for this admission?: Yes Plan: We will start her on iron supplement (3) Hypokalemia Is this a current diagnosis for this admission?: Yes Plan: Replace with an oral supplement (4) Hyperglycemia Is this a current diagnosis for this admission?: Yes Plan: We increased her sliding scale - Time Time Spent with patient: 25-34 minutes Medications reviewed and adjusted accordingly: Yes
[2018-03-11] MEDS: FERROUS SULFATE 325 MG TABLET PO SCH (17:36)
[2018-03-11] MEDS: SUCRALFATE 1 GM TABLET PO SCH ×2 (17:37→22:22)
[2018-03-11] MEDS: LANSOPRAZOLE 30 MG TAB.RAP.DR PO SCH (17:37)
[2018-03-11] MEDS: INSULIN LISPRO 100 UNIT/ML 3 ML VIAL SUBCUT PRN ×2 (17:38→22:21)
[2018-03-11] MEDS ORDERED: (PENDING PHARMACY ID) (Lansoprazole [Prevacid] 30 MG) PO SCH (18:00)
[2018-03-11] MEDS: ZOLPIDEM TARTRATE 5 MG TABLET PO SCH (22:21)
[2018-03-12] MEDS: HYDROCODONE/ACETAMINOPHEN 10-325 MG TABLET PO PRN ×4 (02:40→20:17)
[2018-03-12] MEDS: VANCOMYCIN HCL INJ 500 MG VIAL PO SCH ×3 (06:27→17:29)
[2018-03-12] MEDS: GABAPENTIN 300 MG CAPSULE PO SCH ×3 (06:27→22:36)
[2018-03-12] MEDS: HEPARIN SOD (PORCINE) 5,000 UNIT/ML 1 ML SYRINGE SUBCUT SCH ×3 (06:28→22:44)
[2018-03-12] MEDS: LANSOPRAZOLE 30 MG TAB.RAP.DR PO SCH ×2 (06:28→17:29)
[2018-03-12 06:34] LABS: ABSOLUTE EOSINOPHILS # (AUTO) 0.2 10^3/uL (0.0-0.6); ABSOLUTE LYMPHOCYTES (AUTO) 0.7 10^3/uL (0.5-4.7); ABSOLUTE MONOCYTES (AUTO) 0.3 10^3/uL (0.1-1.4); ABSOLUTE NEUT (AUTO) 1.5 10^3/uL (1.7-8.2); BASOPHILS % (AUTO) 1.2 % (0-2); EOSINOPHILS % (AUTO) 8.2 % (0-6); HEMATOCRIT 27.8 % (36.0-47.0); HEMOGLOBIN 8.9 g/dL (12.0-15.5); LYMPHOCYTES % (AUTO) 24.8 % (13-45); MEAN CORPUSCULAR HEMOGLOBIN 24.9 pg (27.0-33.4); MEAN CORPUSCULAR HGB CONC 32.1 g/dL (32.0-36.0); MEAN CORPUSCULAR VOLUME 78 fl (80-97); MONOCYTES % (AUTO) 9.6 % (3-13); PLATELET COUNT 131 10^3/uL (150-450); RED BLOOD COUNT 3.58 10^6/uL (3.72-5.28); RED CELL DISTRIBUTION WIDTH 19.1 % (11.5-14.0); SEGMENTED NEUTROPHILS % (AUTO) 56.2 % (42-78); TOTAL CELLS COUNTED % (AUTO) 100 %; WHITE BLOOD COUNT 2.7 10^3/uL (4.0-10.5)
[2018-03-12 06:54] LABS: ANION GAP 8 (5-19); BLOOD UREA NITROGEN 7 mg/dL (7-20); CALCIUM 8.7 mg/dL (8.4-10.2); CARBON DIOXIDE 23 mmol/L (22-30); CHLORIDE 110 mmol/L (98-107); GLUCOSE 197 mg/dL (75-110); POTASSIUM 3.7 mmol/L (3.6-5.0); SODIUM 140.8 mmol/L (137-145)
[2018-03-12] MEDS: SUCRALFATE 1 GM TABLET PO SCH ×4 (08:33→22:36)
[2018-03-12] MEDS: INSULIN LISPRO 100 UNIT/ML 3 ML VIAL SUBCUT PRN ×2 (08:34→11:19)
[2018-03-12] MEDS: IPRATROPIUM/ALBUTEROL 0.5-2.5 MG/3 ML AMPUL NEB SCH ×3 (09:37→23:59)
[2018-03-12] MEDS: FERROUS SULFATE 325 MG TABLET PO SCH ×2 (10:53→17:29)
[2018-03-12] MEDS: LACTOBACILLUS ACIDOPHILUS 250 MG TAB PO SCH ×2 (10:53→17:29)
[2018-03-12] MEDS: CEFUROXIME 500 MG TABLET PO SCH ×2 (10:54→22:36)
[2018-03-12] MEDS: INSULIN GLARGINE,HUM.REC.ANLOG 1,000 UNIT/10 ML UNIT SUBCUT SCH ×2 (10:54→17:34)
[2018-03-12] MEDS: NICOTINE 14 MG/24 HR PATCH.TD24 TD PRN (11:00)
[2018-03-12] MEDS ORDERED: INSULIN LISPRO 100 UNIT/ML 3 ML VIAL SUBCUT PRN (17:46)
--- NOTE | 2018-03-12 17:52 | PDOC PROGRESS REPORT ---
Subjective Progress Note for:: 03/12/18 Subjective:: No adverse events overnight. No dysuria. Still claiming to have several loose bowel movements a day. Afebrile. Eating and drinking without difficulty. Reason For Visit: C DIFF COLITIS, HYPOTENSION Physical Exam Vital Signs: Temp Pulse Resp BP Pulse Ox 98.9 F 103 H 16 127/80 H 100 03/12/18 16:00 03/12/18 16:40 03/12/18 16:40 03/12/18 16:00 03/12/18 16:40 Intake & Output 03/11/18 03/12/18 03/13/18 06:59 06:59 06:59 Intake Total 5608 2179 Balance 5608 2179 Weight 56.5 kg General appearance: PRESENT: no acute distress, disheveled, well-developed, well -nourished Teeth exam: PRESENT: edentulous Respiratory exam: PRESENT: clear to auscultation megan. ABSENT: rales, rhonchi, wheezes Cardiovascular exam: PRESENT: RRR. ABSENT: diastolic murmur, rubs, systolic murmur GI/Abdominal exam: PRESENT: normal bowel sounds, soft. ABSENT: distended, guarding, mass, organolmegaly, rebound, tenderness Extremities exam: ABSENT: clubbing, pedal edema Musculoskeletal exam: PRESENT: normal inspection - She has very thin musculature in her lower extremities, indicative of a lack of usage. ABSENT: deformity Neurological exam: PRESENT: alert, awake, oriented to person, oriented to place , oriented to time Psychiatric exam: PRESENT: anxious - Perseverating on getting more narcotics and benzodiazepines Results Laboratory Results: 03/12/18 06:12 03/12/18 06:12 03/12/18 03/12/18 06:12 06:12 WBC 2.7 L RBC 3.58 L Hgb 8.9 L Hct 27.8 L MCV 78 L MCH 24.9 L MCHC 32.1 RDW 19.1 H Plt Count 131 L Seg Neutrophils % 56.2 Lymphocytes % 24.8 Monocytes % 9.6 Eosinophils % 8.2 H Basophils % 1.2 Absolute Neutrophils 1.5 L Absolute Lymphocytes 0.7 Absolute Monocytes 0.3 Absolute Eosinophils 0.2 Absolute Basophils 0.0 Sodium 140.8 Potassium 3.7 Chloride 110 H Carbon Dioxide 23 Anion Gap 8 BUN 7 Creatinine 0.45 L Est GFR ( Amer) > 60 Est GFR (Non-Af Amer) > 60 Glucose 197 H Calcium 8.7 Impressions: KUB X-Ray 03/09/18 13:54 IMPRESSION: NO RADIOGRAPHIC EVIDENCE FOR ACUTE ABDOMINAL DISEASE. Abdomen/Pelvis CT 03/09/18 18:37 IMPRESSION: 1. Prominent hiatal hernia. 2. Small splenic cyst. 3. Minimal diverticulosis coli. 4. Small amount of air in the urinary bladder as discussed. 5. Osseous findings as described. Assessment & Plan - Diagnosis (1) C. difficile colitis Is this a current diagnosis for this admission?: Yes Plan: Currently on higher dose oral vancomycin 4 times a day because of her recurrence having not had her antibiotic for 3 or 4 days after she left the hospital last time. We will pay close attention to her clinical response, including electrolytes and volume status. (2) Anemia Qualifiers: Anemia type: iron deficiency Iron deficiency anemia type: inadequate dietary iron intake Qualified Code(s): D50.8 - Other iron deficiency anemias Is this a current diagnosis for this admission?: Yes Plan: We will continue on iron supplement (3) Hypokalemia Is this a current diagnosis for this admission?: Yes Plan: Replace with an oral supplement as needed (4) Hyperglycemia Is this a current diagnosis for this admission?: Yes Plan: I have had to adjust her Lantus because her blood sugars have been high, and for the second day in a rapid increase her sliding scale. She is apparently only eating what is being brought to her, and she is on a consistent carbohydrate diet. - Time Time Spent with patient: 25-34 minutes Medications reviewed and adjusted accordingly: Yes
[2018-03-12] MEDS ORDERED: INSULIN GLARGINE,HUM.REC.ANLOG 1,000 UNIT/10 ML UNIT SUBCUT SCH (18:00)
[2018-03-12] MEDS ORDERED: INSULIN LISPRO 100 UNIT/ML 3 ML VIAL SUBCUT ONE (18:00)
[2018-03-12] MEDS ORDERED: INSULIN GLARGINE,HUM.REC.ANLOG 1,000 UNIT/10 ML UNIT SUBCUT ONE (18:00)
[2018-03-12] MEDS: ZOLPIDEM TARTRATE 5 MG TABLET PO SCH (22:36)
[2018-03-12] MEDS: ALPRAZOLAM 0.5 MG TABLET PO PRN (22:37)
[2018-03-13] MEDS: VANCOMYCIN HCL INJ 500 MG VIAL PO SCH ×5 (00:15→23:19)
[2018-03-13] MEDS: HYDROCODONE/ACETAMINOPHEN 10-325 MG TABLET PO PRN ×4 (02:55→20:33)
[2018-03-13] MEDS: LANSOPRAZOLE 30 MG TAB.RAP.DR PO SCH ×2 (06:02→17:37)
[2018-03-13] MEDS: GABAPENTIN 300 MG CAPSULE PO SCH ×3 (06:02→22:12)
[2018-03-13] MEDS: HEPARIN SOD (PORCINE) 5,000 UNIT/ML 1 ML SYRINGE SUBCUT SCH ×3 (06:03→22:47)
[2018-03-13] MEDS: IPRATROPIUM/ALBUTEROL 0.5-2.5 MG/3 ML AMPUL NEB SCH ×3 (08:41→23:36)
[2018-03-13] MEDS: SUCRALFATE 1 GM TABLET PO SCH ×4 (09:11→22:12)
[2018-03-13] MEDS: FERROUS SULFATE 325 MG TABLET PO SCH ×2 (09:11→17:37)
[2018-03-13] MEDS: NICOTINE 14 MG/24 HR PATCH.TD24 TD PRN (09:12)
[2018-03-13] MEDS ORDERED: IPRATROPIUM/ALBUTEROL 0.5-2.5 MG/3 ML AMPUL NEB PRN (09:18)
[2018-03-13] MEDS ORDERED: ONDANSETRON HCL INJ/PF 4 MG/2 ML SDV IV PRN (09:19)
[2018-03-13] MEDS ORDERED: DEXTROSE 40% GEL 15 GM TUBE PO PRN (09:22)
[2018-03-13] MEDS ORDERED: DEXTROSE 50%-WATER SYRINGE 12.5 GM/25 ML DOSE IV PRN (09:22)
[2018-03-13] MEDS ORDERED: DEXTROSE 50%-WATER SYRINGE 25 GM/50 ML DOSE IV PRN (09:22)
[2018-03-13] MEDS ORDERED: DEXTROSE 40% GEL 15 GM TUBE X 2 PO PRN (09:22)
[2018-03-13] MEDS ORDERED: GLUCAGON,HUMAN RECOMB 1 MG INJ IM PRN (09:22)
[2018-03-13] MEDS ORDERED: INSULIN GLARGINE,HUM.REC.ANLOG 1,000 UNIT/10 ML UNIT SUBCUT SCH ×2 (10:00)
[2018-03-13] MEDS: CEFUROXIME 500 MG TABLET PO SCH ×2 (10:12→22:12)
[2018-03-13] MEDS: LACTOBACILLUS ACIDOPHILUS 250 MG TAB PO SCH ×2 (10:12→17:37)
[2018-03-13] MEDS: INSULIN LISPRO 100 UNIT/ML 3 ML VIAL SUBCUT PRN ×4 (10:13→22:12)
[2018-03-13 11:47] LABS: ANION GAP 10 (5-19); BLOOD UREA NITROGEN 6 mg/dL (7-20); CALCIUM 8.9 mg/dL (8.4-10.2); CARBON DIOXIDE 22 mmol/L (22-30); CHLORIDE 110 mmol/L (98-107); GLUCOSE 300 mg/dL (75-110); POTASSIUM 3.4 mmol/L (3.6-5.0); SODIUM 142.2 mmol/L (137-145)
[2018-03-13] MEDS: ALPRAZOLAM 0.5 MG TABLET PO PRN ×2 (13:21→22:12)
--- NOTE | 2018-03-13 16:53 | PDOC PROGRESS REPORT ---
Subjective Progress Note for:: 03/13/18 Subjective:: No adverse events overnight. No dysuria. Still claiming to have several loose bowel movements a day. Afebrile. Eating and drinking without difficulty. She was lying in the bed watching TV whenever came in the room and she appeared very comfortable, almost on the edge of going to sleep. Reason For Visit: C DIFF COLITIS, HYPOTENSION Physical Exam Vital Signs: Temp Pulse Resp BP Pulse Ox 97.7 F 84 16 136/70 H 100 03/13/18 15:55 03/13/18 15:55 03/13/18 15:55 03/13/18 15:55 03/13/18 15:55 Intake & Output 03/12/18 03/13/18 03/14/18 06:59 06:59 06:59 Intake Total 2179 1772 Output Total 650 Balance 2179 1122 Weight 56.5 kg 53.9 kg General appearance: PRESENT: no acute distress, disheveled, well-developed, well -nourished Teeth exam: PRESENT: edentulous Respiratory exam: PRESENT: clear to auscultation megan. ABSENT: rales, rhonchi, wheezes Cardiovascular exam: PRESENT: RRR. ABSENT: diastolic murmur, rubs, systolic murmur Vascular exam: PRESENT: normal capillary refill GI/Abdominal exam: PRESENT: normal bowel sounds, soft. ABSENT: distended, guarding, mass, organolmegaly, rebound, tenderness Extremities exam: ABSENT: clubbing, pedal edema Musculoskeletal exam: PRESENT: normal inspection. ABSENT: deformity Neurological exam: PRESENT: alert, awake, oriented to person, oriented to place , oriented to time Results Laboratory Results: 03/12/18 06:12 03/13/18 10:27 03/13/18 10:27 Sodium 142.2 Potassium 3.4 L Chloride 110 H Carbon Dioxide 22 Anion Gap 10 BUN 6 L Creatinine 0.47 L Est GFR ( Amer) > 60 Est GFR (Non-Af Amer) > 60 Glucose 300 H Calcium 8.9 Impressions: KUB X-Ray 03/09/18 13:54 IMPRESSION: NO RADIOGRAPHIC EVIDENCE FOR ACUTE ABDOMINAL DISEASE. Abdomen/Pelvis CT 03/09/18 18:37 IMPRESSION: 1. Prominent hiatal hernia. 2. Small splenic cyst. 3. Minimal diverticulosis coli. 4. Small amount of air in the urinary bladder as discussed. 5. Osseous findings as described. Assessment & Plan - Diagnosis (1) C. difficile colitis Is this a current diagnosis for this admission?: Yes Plan: We continue with p.o. vancomycin. The nurses say that she gets up and goes to the bathroom on her own and flushes the toilet and so we do not see every time she has a loose bowel movement. We have asked her to notify us each time she has a bowel movement and not to flush to give us an opportunity to see if the quality of her bowel movements have been changing. (2) Anemia Qualifiers: Anemia type: iron deficiency Iron deficiency anemia type: inadequate dietary iron intake Qualified Code(s): D50.8 - Other iron deficiency anemias Is this a current diagnosis for this admission?: Yes Plan: We will continue on iron supplement (3) Hypokalemia Is this a current diagnosis for this admission?: Yes Plan: Replace with an oral supplement as needed (4) Hyperglycemia Is this a current diagnosis for this admission?: Yes Plan: We are going to continue her insulin regimen as it is today. Her diet was somehow put in as a regular diet and we have corrected that to a consistent carbohydrate diet.
[2018-03-13] MEDS: INSULIN GLARGINE,HUM.REC.ANLOG 1,000 UNIT/10 ML UNIT SUBCUT SCH (17:38)
[2018-03-13] MEDS: ZOLPIDEM TARTRATE 5 MG TABLET PO SCH (22:12)
[2018-03-14] MEDS: LANSOPRAZOLE 30 MG TAB.RAP.DR PO SCH ×2 (05:32→17:21)
[2018-03-14] MEDS: GABAPENTIN 300 MG CAPSULE PO SCH ×3 (05:32→21:51)
[2018-03-14] MEDS: HYDROCODONE/ACETAMINOPHEN 10-325 MG TABLET PO PRN ×4 (05:32→23:31)
[2018-03-14] MEDS: VANCOMYCIN HCL INJ 500 MG VIAL PO SCH ×4 (05:33→23:31)
[2018-03-14] MEDS: HEPARIN SOD (PORCINE) 5,000 UNIT/ML 1 ML SYRINGE SUBCUT SCH ×3 (06:00→21:52)
[2018-03-14] MEDS: SUCRALFATE 1 GM TABLET PO SCH ×4 (07:49→21:51)
[2018-03-14] MEDS: IPRATROPIUM/ALBUTEROL 0.5-2.5 MG/3 ML AMPUL NEB SCH ×3 (08:20→23:58)
[2018-03-14] MEDS: FERROUS SULFATE 325 MG TABLET PO SCH ×2 (08:51→17:21)
[2018-03-14] MEDS: ACETAMINOPHEN 325 MG TABLET PO PRN (09:04)
[2018-03-14] MEDS: ALPRAZOLAM 0.5 MG TABLET PO PRN ×2 (09:04→21:51)
[2018-03-14] MEDS: INSULIN GLARGINE,HUM.REC.ANLOG 1,000 UNIT/10 ML UNIT SUBCUT SCH ×2 (09:05→17:22)
[2018-03-14] MEDS: LACTOBACILLUS ACIDOPHILUS 250 MG TAB PO SCH ×2 (09:05→17:21)
[2018-03-14] MEDS: CEFUROXIME 500 MG TABLET PO SCH ×2 (09:05→21:51)
[2018-03-14 10:10] LABS: ANION GAP 9 (5-19); BLOOD UREA NITROGEN 7 mg/dL (7-20); CALCIUM 8.6 mg/dL (8.4-10.2); CARBON DIOXIDE 25 mmol/L (22-30); CHLORIDE 107 mmol/L (98-107); GLUCOSE 246 mg/dL (75-110); POTASSIUM 3.6 mmol/L (3.6-5.0); SODIUM 140.8 mmol/L (137-145)
[2018-03-14] MEDS: NICOTINE 14 MG/24 HR PATCH.TD24 TD PRN (11:26)
[2018-03-14] MEDS: INSULIN LISPRO 100 UNIT/ML 3 ML VIAL SUBCUT PRN ×2 (12:11→17:24)
--- NOTE | 2018-03-14 14:11 | PDOC PROGRESS REPORT ---
Subjective Progress Note for:: 03/14/18 Subjective:: No adverse events overnight. No dysuria. Still claiming to have 4 loose bowel movements so far today. Afebrile. Eating and drinking without difficulty. She was lying in the bed watching TV whenever came in the room and she was asleep. Reason For Visit: C DIFF COLITIS, HYPOTENSION Physical Exam Vital Signs: Temp Pulse Resp BP Pulse Ox 98.0 F 95 18 116/75 100 03/14/18 11:16 03/14/18 11:16 03/14/18 11:16 03/14/18 11:16 03/14/18 11:16 Intake & Output 03/13/18 03/14/18 03/15/18 06:59 06:59 06:59 Intake Total 1772 473 Output Total 650 Balance 1122 473 Weight 53.9 kg 55.6 kg General appearance: PRESENT: no acute distress, disheveled, well-developed, well -nourished Respiratory exam: PRESENT: clear to auscultation megan. ABSENT: rales, rhonchi, wheezes Cardiovascular exam: PRESENT: RRR. ABSENT: diastolic murmur, rubs, systolic murmur Vascular exam: PRESENT: normal capillary refill GI/Abdominal exam: PRESENT: normal bowel sounds, soft. ABSENT: distended, guarding, mass, organolmegaly, rebound, tenderness Extremities exam: ABSENT: clubbing, pedal edema Neurological exam: PRESENT: alert, awake - after I woke her up, oriented to person, oriented to place, oriented to time Results Laboratory Results: 03/12/18 06:12 03/14/18 09:30 03/14/18 09:30 Sodium 140.8 Potassium 3.6 Chloride 107 Carbon Dioxide 25 Anion Gap 9 BUN 7 Creatinine 0.48 L Est GFR ( Amer) > 60 Est GFR (Non-Af Amer) > 60 Glucose 246 H Calcium 8.6 Impressions: KUB X-Ray 03/09/18 13:54 IMPRESSION: NO RADIOGRAPHIC EVIDENCE FOR ACUTE ABDOMINAL DISEASE. Abdomen/Pelvis CT 03/09/18 18:37 IMPRESSION: 1. Prominent hiatal hernia. 2. Small splenic cyst. 3. Minimal diverticulosis coli. 4. Small amount of air in the urinary bladder as discussed. 5. Osseous findings as described. Assessment & Plan - Diagnosis (1) C. difficile colitis Is this a current diagnosis for this admission?: Yes Plan: We continue with p.o. vancomycin. She still having several loose bowel movements a day. We will continue what we are doing, but will probably get a GI consult the next time they are available. (2) Anemia Qualifiers: Anemia type: iron deficiency Iron deficiency anemia type: inadequate dietary iron intake Qualified Code(s): D50.8 - Other iron deficiency anemias Is this a current diagnosis for this admission?: Yes Plan: We will continue on iron supplement (3) Hypokalemia Is this a current diagnosis for this admission?: Yes Plan: Replace with an oral supplement as needed (4) Hyperglycemia Is this a current diagnosis for this admission?: Yes Plan: We are going to continue her insulin regimen as it is today. Her diet was somehow put in as a regular diet and we have corrected that to a consistent carbohydrate diet. Glucoses have improved. - Time Time Spent with patient: 25-34 minutes Medications reviewed and adjusted accordingly: Yes
[2018-03-14] MEDS: ZOLPIDEM TARTRATE 5 MG TABLET PO SCH (21:51)
[2018-03-15 05:35] LABS: ANION GAP 6 (5-19); BLOOD UREA NITROGEN 10 mg/dL (7-20); CARBON DIOXIDE 27 mmol/L (22-30); CHLORIDE 107 mmol/L (98-107); GLUCOSE 194 mg/dL (75-110); POTASSIUM 3.8 mmol/L (3.6-5.0); SODIUM 139.6 mmol/L (137-145)
[2018-03-15] MEDS: HEPARIN SOD (PORCINE) 5,000 UNIT/ML 1 ML SYRINGE SUBCUT SCH ×3 (05:37→22:09)
[2018-03-15] MEDS: LANSOPRAZOLE 30 MG TAB.RAP.DR PO SCH ×2 (05:44→17:52)
[2018-03-15] MEDS: VANCOMYCIN HCL INJ 500 MG VIAL PO SCH ×4 (05:44→23:56)
[2018-03-15] MEDS: HYDROCODONE/ACETAMINOPHEN 10-325 MG TABLET PO PRN ×4 (05:44→23:56)
[2018-03-15] MEDS: GABAPENTIN 300 MG CAPSULE PO SCH ×3 (05:44→22:08)
[2018-03-15] MEDS: INSULIN LISPRO 100 UNIT/ML 3 ML VIAL SUBCUT PRN ×2 (06:14→12:03)
[2018-03-15] MEDS: FERROUS SULFATE 325 MG TABLET PO SCH ×2 (08:12→17:51)
[2018-03-15] MEDS: SUCRALFATE 1 GM TABLET PO SCH ×4 (08:12→22:08)
[2018-03-15] MEDS: IPRATROPIUM/ALBUTEROL 0.5-2.5 MG/3 ML AMPUL NEB SCH ×3 (08:14→23:18)
[2018-03-15] MEDS: INSULIN GLARGINE,HUM.REC.ANLOG 1,000 UNIT/10 ML UNIT SUBCUT SCH ×2 (09:12→17:53)
[2018-03-15] MEDS: LACTOBACILLUS ACIDOPHILUS 250 MG TAB PO SCH ×2 (09:14→17:51)
[2018-03-15] MEDS: CEFUROXIME 500 MG TABLET PO SCH ×2 (09:15→22:09)
--- NOTE | 2018-03-15 17:58 | PDOC PROGRESS REPORT ---
Subjective Progress Note for:: 03/15/18 Subjective:: She said she is still having several bowel movements a day. She wants me to send her home so that she can go to a colonoscopy that she has scheduled for tomorrow. I told her that we could have gastroenterology see her here because they may decide that she needs to go ahead and have a colonoscopy. I could not get her to understand that it was not safe for her to leave the hospital. Reason For Visit: C DIFF COLITIS, HYPOTENSION Physical Exam Vital Signs: Temp Pulse Resp BP Pulse Ox 99.3 F 94 16 132/69 H 99 03/15/18 15:35 03/15/18 16:07 03/15/18 16:07 03/15/18 15:35 03/15/18 15:35 Intake & Output 03/14/18 03/15/18 03/16/18 06:59 06:59 06:59 Intake Total 473 1565 679 Balance 473 1565 679 Weight 55.6 kg General appearance: PRESENT: no acute distress, disheveled, well-developed, well -nourished Respiratory exam: PRESENT: clear to auscultation megan. ABSENT: rales, rhonchi, wheezes Cardiovascular exam: PRESENT: RRR. ABSENT: diastolic murmur, rubs, systolic murmur GI/Abdominal exam: PRESENT: normal bowel sounds, soft. ABSENT: distended, guarding, mass, organolmegaly, rebound, tenderness Extremities exam: ABSENT: clubbing, pedal edema Musculoskeletal exam: PRESENT: normal inspection. ABSENT: deformity Neurological exam: PRESENT: alert, awake, oriented to person, oriented to place , oriented to time Psychiatric exam: PRESENT: anxious Results Laboratory Results: 03/12/18 06:12 03/15/18 04:43 03/15/18 04:43 Sodium 139.6 Potassium 3.8 Chloride 107 Carbon Dioxide 27 Anion Gap 6 BUN 10 Creatinine 0.45 L Est GFR ( Amer) > 60 Est GFR (Non-Af Amer) > 60 Glucose 194 H Calcium 9.0 Impressions: KUB X-Ray 03/09/18 13:54 IMPRESSION: NO RADIOGRAPHIC EVIDENCE FOR ACUTE ABDOMINAL DISEASE. Abdomen/Pelvis CT 03/09/18 18:37 IMPRESSION: 1. Prominent hiatal hernia. 2. Small splenic cyst. 3. Minimal diverticulosis coli. 4. Small amount of air in the urinary bladder as discussed. 5. Osseous findings as described. Assessment & Plan - Diagnosis (1) C. difficile colitis Is this a current diagnosis for this admission?: Yes Plan: We continue with p.o. vancomycin. She still having several loose bowel movements a day. We will continue what we are doing, but will probably get a GI consult the next time they are available. I will call in the morning to see if they can come see her. Given her history with this bout of Clostridium difficile colitis, I am concerned that she may be developing a fulminant colitis. Fortunately she remains hemodynamically stable. (2) Anemia Qualifiers: Anemia type: iron deficiency Iron deficiency anemia type: inadequate dietary iron intake Qualified Code(s): D50.8 - Other iron deficiency anemias Is this a current diagnosis for this admission?: Yes Plan: We will continue on iron supplement (3) Hypokalemia Is this a current diagnosis for this admission?: Yes Plan: Replace with an oral supplement as needed (4) Hyperglycemia Is this a current diagnosis for this admission?: Yes Plan: We are going to continue her insulin regimen as it is. Her diet was somehow put in as a regular diet and we have corrected that to a consistent carbohydrate diet. Glucoses have improved.
[2018-03-15] MEDS: ZOLPIDEM TARTRATE 5 MG TABLET PO SCH (22:08)
[2018-03-15] MEDS: ALPRAZOLAM 0.5 MG TABLET PO PRN (22:08)
[2018-03-15] MEDS: NICOTINE 14 MG/24 HR PATCH.TD24 TD PRN (22:09)
[2018-03-16] MEDS: VANCOMYCIN HCL INJ 500 MG VIAL PO SCH ×4 (05:58→23:52)
[2018-03-16] MEDS: LANSOPRAZOLE 30 MG TAB.RAP.DR PO SCH ×2 (05:58→18:20)
[2018-03-16] MEDS: GABAPENTIN 300 MG CAPSULE PO SCH ×3 (05:58→22:38)
[2018-03-16] MEDS: HYDROCODONE/ACETAMINOPHEN 10-325 MG TABLET PO PRN ×4 (05:58→23:52)
[2018-03-16] MEDS: HEPARIN SOD (PORCINE) 5,000 UNIT/ML 1 ML SYRINGE SUBCUT SCH ×3 (05:59→22:39)
[2018-03-16 06:04] LABS: ANION GAP 12 (5-19); BLOOD UREA NITROGEN 8 mg/dL (7-20); CALCIUM 9.1 mg/dL (8.4-10.2); CARBON DIOXIDE 26 mmol/L (22-30); CHLORIDE 102 mmol/L (98-107); GLUCOSE 324 mg/dL (75-110); POTASSIUM 3.6 mmol/L (3.6-5.0); SODIUM 140.3 mmol/L (137-145)
[2018-03-16] MEDS: INSULIN LISPRO 100 UNIT/ML 3 ML VIAL SUBCUT PRN ×3 (06:09→19:32)
[2018-03-16] MEDS: SUCRALFATE 1 GM TABLET PO SCH ×4 (08:28→22:39)
[2018-03-16] MEDS: IPRATROPIUM/ALBUTEROL 0.5-2.5 MG/3 ML AMPUL NEB SCH ×2 (08:33→16:12)
[2018-03-16] MEDS: FERROUS SULFATE 325 MG TABLET PO SCH ×2 (09:14→18:20)
[2018-03-16] MEDS: LACTOBACILLUS ACIDOPHILUS 250 MG TAB PO SCH ×2 (09:15→18:20)
[2018-03-16] MEDS: CEFUROXIME 500 MG TABLET PO SCH ×2 (09:15→22:39)
[2018-03-16] MEDS: INSULIN GLARGINE,HUM.REC.ANLOG 1,000 UNIT/10 ML UNIT SUBCUT SCH ×2 (09:16→22:40)
[2018-03-16] MEDS: ACETAMINOPHEN 325 MG TABLET PO PRN (09:39)
[2018-03-16] MEDS: METRONIDAZOLE 500 MG/NS RTU 500 MG/100 ML RTUPB IV SCH ×3 (13:49→23:52)
--- NOTE | 2018-03-16 18:18 | PDOC PROGRESS REPORT ---
Subjective Progress Note for:: 03/16/18 Subjective:: She said she is still having several bowel movements a day. She was asleep whenever came into the room. She is claiming some left lower abdominal discomfort. Found out that I would not have gastroenterology available to me until later in the week, and I offered to try to transfer her if she wanted to try to see someone sooner, but she said she would rather stay here as long as she is stable. Her vital signs have been stable she has been afebrile. She has been eating and drinking and been able to ambulate independently to the bathroom. Reason For Visit: C DIFF COLITIS, HYPOTENSION Physical Exam Vital Signs: Temp Pulse Resp BP Pulse Ox 98.4 F 104 H 18 109/54 L 95 03/16/18 16:38 03/16/18 16:38 03/16/18 16:38 03/16/18 16:38 03/16/18 16:38 Intake & Output 03/15/18 03/16/18 03/17/18 06:59 06:59 06:59 Intake Total 1565 684 Balance 1565 684 Weight 55.2 kg General appearance: PRESENT: no acute distress, disheveled, well-developed, well -nourished Respiratory exam: PRESENT: clear to auscultation megan. ABSENT: rales, rhonchi, wheezes Cardiovascular exam: PRESENT: RRR. ABSENT: diastolic murmur, rubs, systolic murmur GI/Abdominal exam: PRESENT: normal bowel sounds, soft. ABSENT: distended, guarding, mass, organolmegaly, rebound, tenderness Extremities exam: PRESENT: calf tenderness, full ROM. ABSENT: clubbing, pedal edema Musculoskeletal exam: PRESENT: ambulatory, normal inspection. ABSENT: deformity Neurological exam: PRESENT: alert, awake, oriented to person, oriented to place , oriented to time Results Laboratory Results: 03/12/18 06:12 03/16/18 04:41 03/16/18 04:41 Sodium 140.3 Potassium 3.6 Chloride 102 Carbon Dioxide 26 Anion Gap 12 BUN 8 Creatinine 0.44 L Est GFR ( Amer) > 60 Est GFR (Non-Af Amer) > 60 Glucose 324 H Calcium 9.1 Impressions: KUB X-Ray 03/09/18 13:54 IMPRESSION: NO RADIOGRAPHIC EVIDENCE FOR ACUTE ABDOMINAL DISEASE. Abdomen/Pelvis CT 03/09/18 18:37 IMPRESSION: 1. Prominent hiatal hernia. 2. Small splenic cyst. 3. Minimal diverticulosis coli. 4. Small amount of air in the urinary bladder as discussed. 5. Osseous findings as described. Assessment & Plan - Diagnosis (1) C. difficile colitis Is this a current diagnosis for this admission?: Yes Plan: We continue with p.o. vancomycin. She still having several loose bowel movements a day. I added IV Flagyl. If she begins to show some signs of decompensation that we may need to transfer her, but at this time she would like to remain here and wait to see a conference planner here later this week. (2) Anemia Qualifiers: Anemia type: iron deficiency Iron deficiency anemia type: inadequate dietary iron intake Qualified Code(s): D50.8 - Other iron deficiency anemias Is this a current diagnosis for this admission?: Yes Plan: We will continue on iron supplement (3) Hypokalemia Is this a current diagnosis for this admission?: Yes Plan: Replace with an oral supplement as needed (4) Hyperglycemia Is this a current diagnosis for this admission?: Yes Plan: We are going to continue her insulin regimen as it is. Her diet was somehow put in as a regular diet and we have corrected that to a consistent carbohydrate diet. Glucoses have improved, but she may need further adjustment of her insulin regimen. - Time Time Spent with patient: 25-34 minutes Medications reviewed and adjusted accordingly: Yes
[2018-03-16] MEDS: ALPRAZOLAM 0.5 MG TABLET PO PRN (22:38)
[2018-03-16] MEDS: ZOLPIDEM TARTRATE 5 MG TABLET PO SCH (22:39)
[2018-03-17] MEDS: IPRATROPIUM/ALBUTEROL 0.5-2.5 MG/3 ML AMPUL NEB SCH ×3 (00:13→16:46)
[2018-03-17] MEDS: LANSOPRAZOLE 30 MG TAB.RAP.DR PO SCH ×2 (05:39→18:04)
[2018-03-17] MEDS: METRONIDAZOLE 500 MG/NS RTU 500 MG/100 ML RTUPB IV SCH ×4 (05:39→23:57)
[2018-03-17] MEDS: GABAPENTIN 300 MG CAPSULE PO SCH ×3 (05:40→21:47)
[2018-03-17] MEDS: HEPARIN SOD (PORCINE) 5,000 UNIT/ML 1 ML SYRINGE SUBCUT SCH ×3 (05:40→21:47)
[2018-03-17] MEDS: VANCOMYCIN HCL INJ 500 MG VIAL PO SCH ×3 (05:41→18:04)
[2018-03-17] MEDS: HYDROCODONE/ACETAMINOPHEN 10-325 MG TABLET PO PRN ×3 (05:51→18:03)
[2018-03-17 06:24] LABS: ANION GAP 10 (5-19); BLOOD UREA NITROGEN 6 mg/dL (7-20); CALCIUM 9.2 mg/dL (8.4-10.2); CARBON DIOXIDE 27 mmol/L (22-30); CHLORIDE 104 mmol/L (98-107); GLUCOSE 105 mg/dL (75-110); POTASSIUM 4.2 mmol/L (3.6-5.0)
[2018-03-17] MEDS: SUCRALFATE 1 GM TABLET PO SCH ×4 (08:06→21:47)
[2018-03-17 09:25] LABS: HEMATOCRIT 31.6 % (36.0-47.0); HEMOGLOBIN 9.9 g/dL (12.0-15.5); MEAN CORPUSCULAR HEMOGLOBIN 25.4 pg (27.0-33.4); MEAN CORPUSCULAR HGB CONC 31.4 g/dL (32.0-36.0); MEAN CORPUSCULAR VOLUME 81 fl (80-97); PLATELET COUNT 130 10^3/uL (150-450); RED BLOOD COUNT 3.91 10^6/uL (3.72-5.28); RED CELL DISTRIBUTION WIDTH 22.5 % (11.5-14.0)
[2018-03-17] MEDS: LACTOBACILLUS ACIDOPHILUS 250 MG TAB PO SCH ×2 (11:39→18:04)
[2018-03-17] MEDS: FERROUS SULFATE 325 MG TABLET PO SCH ×2 (11:39→18:04)
[2018-03-17] MEDS: ACETAMINOPHEN 325 MG TABLET PO PRN ×2 (11:40→20:07)
[2018-03-17] MEDS: INSULIN GLARGINE,HUM.REC.ANLOG 1,000 UNIT/10 ML UNIT SUBCUT SCH ×2 (11:41→21:47)
--- NOTE | 2018-03-17 12:37 | RADIOLOGY REPORT (SQ) ---
EXAM DESCRIPTION: CHEST SINGLE VIEW COMPLETED DATE/TIME: 03/17/2018 11:53 am REASON FOR STUDY: ABD PAIN COMPARISON: None. EXAM PARAMETERS: NUMBER OF VIEWS: One view. TECHNIQUE: Single frontal radiographic view of the chest acquired. RADIATION DOSE: NA LIMITATIONS: None. FINDINGS: LUNGS AND PLEURA: No opacities, masses or pneumothorax. No pleural effusion. MEDIASTINUM AND HILAR STRUCTURES: No masses. Contour normal. HEART AND VASCULAR STRUCTURES: Heart normal in size. Normal vasculature. BONES: No acute findings. HARDWARE: None in the chest. OTHER: Very large hiatal hernia IMPRESSION: NO ACUTE RADIOGRAPHIC FINDING IN THE CHEST. Very large hiatal hernia TECHNICAL DOCUMENTATION: JOB ID: [id number] [employer]- All Rights Reserved Reading location - IP/workstation name: [email or web address]
--- NOTE | 2018-03-17 16:27 | RADIOLOGY REPORT (SQ) ---
EXAM DESCRIPTION: CT ABD/PELVIS WITH IV ORAL COMPLETED DATE/TIME: 03/17/2018 3:59 pm REASON FOR STUDY: ABD PAIN COMPARISON: 12/15/2016 TECHNIQUE: CT scan of the abdomen and pelvis performed using helical scanning technique with dynamic intravenous contrast injection. Oral contrast. Images reviewed with lung, soft tissue, and bone win dows. Reconstructed coronal and sagittal MPR images reviewed. Delayed images for evaluation of the ur inary system also acquired. All images stored on PACS. All CT scanners at this facility use dose modulation, iterative reconstruction, and/or weight based d osing when appropriate to reduce radiation dose to as low as reasonably achievable (ALARA). [facility]: Dose Right [facility]: CareDose [facility]: Dose Right [facility]: Teradose 4D [facility]: [employer] CONTRAST TYPE AND DOSE: contrast/concentration: Isovue 370.00 mg/ml; Total Contrast Delivered: 59.0 ml; Total Saline Delivered: 65.0 ml RENAL FUNCTION: BUN 6 creatinine 0.48 RADIATION DOSE: CT Rad equipment meets quality standard of care and radiation dose reduction techniq ues were employed. CTDIvol: 5.0 - 5.9 mGy. DLP: 546 mGy-cm.. LIMITATIONS: None. FINDINGS: LOWER CHEST: Prominent hiatal hernia. No infiltrates or effusions. No mass. LIVER: Normal size. No masses. No dilated ducts. SPLEEN: Normal size. There is a small splenic cyst that is stable. PANCREAS: No masses. No significant calcifications. No adjacent inflammation or peripancreatic fluid collections. Pancreatic duct not dilated. GALLBLADDER: No identified stones by CT criteria. No inflammatory changes to suggest cholecystitis. ADRENAL GLANDS: No significant masses or asymmetry. RIGHT KIDNEY AND URETER: No solid masses. No significant calcifications. No hydronephrosis or hyd roureter. LEFT KIDNEY AND URETER: No solid masses. No significant calcifications. No hydronephrosis or hydr oureter. AORTA AND VESSELS: No aneurysm. No dissection. Renal arteries, SMA, celiac without stenosis. RETROPERITONEUM: No retroperitoneal adenopathy, hemorrhage or masses. BOWEL AND PERITONEAL CAVITY: No masses or inflammatory changes. No free fluid or peritoneal masses. APPENDIX: Not identified. PELVIS: No mass. No free fluid. Normal bladder. ABDOMINAL WALL: No masses. No hernias. BONES: Marked compression changes at L2 that were not present on the prior study. There is retropuls ion of bone into the spinal canal resulting in mild central canal stenosis. Mild superior endplate c ompression changes at T12 that were not present on prior study. OTHER: No other significant finding. IMPRESSION: 1. Hiatal hernia. 2. Small stable splenic cyst. 3. Compression changes in the spine that are new since the earlier study. 4. No acute findings in the abdomen or pelvis to explain the patient's pain. TECHNICAL DOCUMENTATION: JOB ID: [id number] Quality ID # [id number]: Final reports with documentation of one or more dose reduction techniques (e.g., Au tomated exposure control, adjustment of the mA and/or kV according to patient size, use of iterative reconstruction technique) 2010 [employer]- All Rights Reserved Reading location - IP/workstation name: [email or web address]
--- NOTE | 2018-03-17 17:42 | PDOC PROGRESS REPORT ---
Subjective Progress Note for:: 03/17/18 Subjective:: She had a fever this morning. The only thing she complained of his left lower quadrant abdominal pain. The frequency of her bowel movements have been decreasing in a stepwise manner each day for the last 3 days. She denies dysuria. She denied cough or shortness of breath. Reason For Visit: C DIFF COLITIS, HYPOTENSION Physical Exam Vital Signs: Temp Pulse Resp BP Pulse Ox 99.9 F 105 H 12 100/62 97 03/17/18 16:27 03/17/18 16:27 03/17/18 16:27 03/17/18 16:27 03/17/18 16:27 Intake & Output 03/16/18 03/17/18 03/18/18 06:59 06:59 06:59 Intake Total 684 2312 358 Output Total 100 Balance 684 2212 358 Weight 55.2 kg 57.1 kg General appearance: PRESENT: disheveled, mild distress Teeth exam: PRESENT: edentulous Respiratory exam: PRESENT: clear to auscultation megan. ABSENT: rales, rhonchi, wheezes Cardiovascular exam: PRESENT: RRR. ABSENT: diastolic murmur, rubs, systolic murmur GI/Abdominal exam: PRESENT: normal bowel sounds, soft. ABSENT: distended, guarding, mass, organolmegaly, rebound, tenderness Extremities exam: ABSENT: clubbing, pedal edema Musculoskeletal exam: PRESENT: normal inspection. ABSENT: deformity Neurological exam: PRESENT: alert, awake, oriented to person, oriented to place , oriented to time Skin exam: PRESENT: dry, warm Results Laboratory Results: 03/17/18 05:39 03/17/18 05:39 03/17/18 03/17/18 05:39 05:39 WBC 3.0 L RBC 3.91 Hgb 9.9 L Hct 31.6 L MCV 81 MCH 25.4 L MCHC 31.4 L RDW 22.5 H Plt Count 130 L Sodium 141.0 Potassium 4.2 Chloride 104 Carbon Dioxide 27 Anion Gap 10 BUN 6 L Creatinine 0.48 L Est GFR ( Amer) > 60 Est GFR (Non-Af Amer) > 60 Glucose 105 Calcium 9.2 Impressions: KUB X-Ray 03/09/18 13:54 IMPRESSION: NO RADIOGRAPHIC EVIDENCE FOR ACUTE ABDOMINAL DISEASE. Abdomen/Pelvis CT 03/17/18 11:37 IMPRESSION: 1. Hiatal hernia. 2. Small stable splenic cyst. 3. Compression changes in the spine that are new since the earlier study. 4. No acute findings in the abdomen or pelvis to explain the patient's pain. Chest X-Ray 03/17/18 11:38 IMPRESSION: NO ACUTE RADIOGRAPHIC FINDING IN THE CHEST. Very large hiatal hernia Assessment & Plan - Diagnosis (1) C. difficile colitis Is this a current diagnosis for this admission?: Yes Plan: We continue with p.o. vancomycin. She still having several loose bowel movements a day. I added IV Flagyl. If she begins to show some signs of decompensation that we may need to transfer her, but at this time she would like to remain here and wait to see a frozen pie maker here later this week. (2) Anemia Qualifiers: Anemia type: iron deficiency Iron deficiency anemia type: inadequate dietary iron intake Qualified Code(s): D50.8 - Other iron deficiency anemias Is this a current diagnosis for this admission?: Yes Plan: We will continue on iron supplement (3) Hyperglycemia Is this a current diagnosis for this admission?: Yes Plan: We are going to continue her insulin regimen as it is. Her diet was somehow put in as a regular diet and we have corrected that to a consistent carbohydrate diet. Glucoses have improved, but she may need further adjustment of her insulin regimen. (4) Fever Qualifiers: Fever type: unspecified Qualified Code(s): R50.9 - Fever, unspecified Is this a current diagnosis for this admission?: Yes Plan: She was treated with cefuroxime for what has turned out to be a Citrobacter UTI. It had an extraordinarily small colony count and she had been asymptomatic up until today. She still denied dysuria, but the Citrobacter was resistant to cefuroxime. It was sensitive to all other cephalosporins. I have repeated a urinalysis but that is pending. In the meantime I will put her on Rocephin. Chest x-ray was unremarkable. Repeat blood cultures have been drawn and are pending. CT of the abdomen and pelvis with contrast IV and oral was negative. - Time Time Spent with patient: 25-34 minutes Medications reviewed and adjusted accordingly: Yes
[2018-03-17] MEDS ORDERED: CEFTRIAXONE 1 GM/D5W RTU 1 GM/50 ML RTUPB IV SCH (18:00)
[2018-03-17] MEDS: INSULIN LISPRO 100 UNIT/ML 3 ML VIAL SUBCUT PRN ×2 (18:05→21:47)
[2018-03-17] MEDS: CEFTRIAXONE SODIUM 1,000 MG in DEXTROSE 5%-WATER 50 ML IV SCH (18:16)
[2018-03-17 18:36] LABS: APPEARANCE,URINE CLEAR; BILIRUBIN,URINE NEGATIVE (NEGATIVE); COLOR,URINE YELLOW; GLUCOSE, URINE NEGATIVE (NEGATIVE); KETONES,URINE NEGATIVE (NEGATIVE); LEUKOCYTE ESTERASE,URINE NEGATIVE (NEGATIVE); NITRITE,URINE NEGATIVE (NEGATIVE); PROTEIN,URINE NEGATIVE (NEGATIVE); URINE SPECIFIC GRAVITY 1.046; UROBILINOGEN,URINE NEGATIVE mg/dL (<2.0)
[2018-03-17] MEDS: ALPRAZOLAM 0.5 MG TABLET PO PRN (21:46)
[2018-03-17] MEDS: ZOLPIDEM TARTRATE 5 MG TABLET PO SCH (21:47)
[2018-03-18] MEDS: HYDROCODONE/ACETAMINOPHEN 10-325 MG TABLET PO PRN ×4 (00:06→18:23)
[2018-03-18] MEDS: IPRATROPIUM/ALBUTEROL 0.5-2.5 MG/3 ML AMPUL NEB SCH ×3 (00:47→16:28)
[2018-03-18] MEDS: VANCOMYCIN HCL INJ 500 MG VIAL PO SCH ×4 (01:09→17:26)
[2018-03-18 05:49] LABS: ANION GAP 8 (5-19); BLOOD UREA NITROGEN 6 mg/dL (7-20); CARBON DIOXIDE 30 mmol/L (22-30); CHLORIDE 103 mmol/L (98-107); GLUCOSE 208 mg/dL (75-110); POTASSIUM 3.7 mmol/L (3.6-5.0); SODIUM 141.2 mmol/L (137-145)
[2018-03-18] MEDS: LANSOPRAZOLE 30 MG TAB.RAP.DR PO SCH ×2 (06:16→17:25)
[2018-03-18] MEDS: HEPARIN SOD (PORCINE) 5,000 UNIT/ML 1 ML SYRINGE SUBCUT SCH ×3 (06:16→22:55)
[2018-03-18] MEDS: METRONIDAZOLE 500 MG/NS RTU 500 MG/100 ML RTUPB IV SCH ×3 (06:16→17:25)
[2018-03-18] MEDS: GABAPENTIN 300 MG CAPSULE PO SCH ×3 (06:16→22:54)
[2018-03-18] MEDS: FERROUS SULFATE 325 MG TABLET PO SCH ×2 (08:15→17:25)
[2018-03-18] MEDS: SUCRALFATE 1 GM TABLET PO SCH ×4 (08:15→22:59)
[2018-03-18] MEDS: INSULIN GLARGINE,HUM.REC.ANLOG 1,000 UNIT/10 ML UNIT SUBCUT SCH ×2 (10:51→22:56)
[2018-03-18] MEDS: LACTOBACILLUS ACIDOPHILUS 250 MG TAB PO SCH ×2 (10:51→17:25)
[2018-03-18] MEDS ORDERED: INSULIN LISPRO 100 UNIT/ML 3 ML VIAL SUBCUT ONE (12:30)
[2018-03-18] MEDS: NICOTINE 14 MG/24 HR PATCH.TD24 TD PRN (12:59)
[2018-03-18] MEDS: ALPRAZOLAM 0.5 MG TABLET PO PRN ×2 (13:03→23:11)
--- NOTE | 2018-03-18 15:56 | PDOC PROGRESS REPORT ---
Subjective Progress Note for:: 03/18/18 Subjective:: Patient was seen this morning complaining of left lower quadrant abdominal pain. Patient was very uncooperative and did not want to be examined or answer questions. Patient was noted to have an elevated blood sugar. 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 She is also on IV Flagyl. She may benefit from fidaxomicin as this is a recurrent infection. Will await GI recommendation of consult infectious disease if needed Reason For Visit: C DIFF COLITIS, HYPOTENSION Physical Exam Vital Signs: Temp Pulse Resp BP Pulse Ox 98.9 F 112 H 16 127/73 H 97 03/18/18 12:00 03/18/18 12:00 03/18/18 12:00 03/18/18 12:00 03/18/18 12:00 Intake & Output 03/17/18 03/18/18 03/19/18 06:59 06:59 06:59 Intake Total 2312 2108 Output Total 100 900 Balance 2212 1208 Weight 57.1 kg 57.6 kg General appearance: PRESENT: no acute distress, well-nourished Head exam: PRESENT: atraumatic, normocephalic Eye exam: PRESENT: conjunctiva pink. ABSENT: scleral icterus Ear exam: PRESENT: normal external ear exam Mouth exam: PRESENT: tongue midline Neck exam: ABSENT: carotid bruit, lymphadenopathy Respiratory exam: PRESENT: clear to auscultation megan. ABSENT: rales, rhonchi, wheezes Cardiovascular exam: PRESENT: RRR. ABSENT: diastolic murmur, rubs, systolic murmur Vascular exam: PRESENT: normal capillary refill GI/Abdominal exam: PRESENT: other - Patient refused examination Rectal exam: PRESENT: deferred Extremities exam: PRESENT: pedal edema. ABSENT: calf tenderness, clubbing Neurological exam: PRESENT: alert, awake, oriented to person, oriented to time. ABSENT: motor sensory deficit Psychiatric exam: PRESENT: other - Very uncooperative Skin exam: PRESENT: dry, intact, warm. ABSENT: cyanosis, rash Results Laboratory Results: 03/17/18 05:39 03/18/18 05:15 03/17/18 03/18/18 17:50 05:15 Sodium 141.2 Potassium 3.7 Chloride 103 Carbon Dioxide 30 Anion Gap 8 BUN 6 L Creatinine 0.44 L Est GFR ( Amer) > 60 Est GFR (Non-Af Amer) > 60 Glucose 208 H Calcium 9.0 Urine Color YELLOW Urine Appearance CLEAR Urine pH 7.0 Ur Specific [place] 1.046 Urine Protein NEGATIVE Urine Glucose (UA) NEGATIVE Urine Ketones NEGATIVE Urine Blood NEGATIVE Urine Nitrite NEGATIVE Ur Leukocyte Esterase NEGATIVE Urine WBC (Auto) 3 Urine RBC (Auto) 31 Impressions: KUB X-Ray 03/09/18 13:54 IMPRESSION: NO RADIOGRAPHIC EVIDENCE FOR ACUTE ABDOMINAL DISEASE. Abdomen/Pelvis CT 03/17/18 11:37 IMPRESSION: 1. Hiatal hernia. 2. Small stable splenic cyst. 3. Compression changes in the spine that are new since the earlier study. 4. No acute findings in the abdomen or pelvis to explain the patient's pain. Chest X-Ray 03/17/18 11:38 IMPRESSION: NO ACUTE RADIOGRAPHIC FINDING IN THE CHEST. Very large hiatal hernia Assessment & Plan - Time Time Spent with patient: 15-24 minutes Medications reviewed and adjusted accordingly: Yes Anticipated discharge: Home Within: within 72 hours - Inpatient Certification Based on my medical assessment, after consideration of the patient's comorbidities, presenting symptoms, or acuity I expect that the services needed warrant INPATIENT care.: Yes Medical Necessity: Need For IV Fluids, Need for IV Antibiotics - Plan Summary Plan Summary: C. difficile colitis we will continue management as above 2. Anemia, iron deficiency. Will continue current iron supplement 3. Type 2 diabetes mellitus poorly controlled as a blood sugar was in the 400s today we will give sliding scale insulin and adjust her basal insulin as needed 4. Fever which was really one episode and has resolved although patient was placed on ceftriaxone IV. Was concerned that this may be secondary to a recent Citrobacter urinary infection however repeat urine cultures negative. We will try and discontinue antibiotics IV as soon as possible as this is really not helping her CDiff. I will also place her on some IV fluids as she remains somewhat tachycardic.
[2018-03-18] MEDS: CHOLESTYRAMINE/ASPARTAME 4 GM PACKET PO SCH ×2 (17:26→22:54)
[2018-03-18] MEDS: RINGERS SOLUTION,LACTATED 1,000 ML IV PRN (17:37)
[2018-03-18] MEDS: CEFTRIAXONE SODIUM 1,000 MG in DEXTROSE 5%-WATER 50 ML IV SCH (18:23)
[2018-03-18] MEDS: INSULIN LISPRO 100 UNIT/ML 3 ML VIAL SUBCUT PRN ×2 (18:23→22:58)
[2018-03-18] MEDS: ACETAMINOPHEN 325 MG TABLET PO PRN (20:02)
[2018-03-18] MEDS: ZOLPIDEM TARTRATE 5 MG TABLET PO SCH (22:59)
[2018-03-19] MEDS: IPRATROPIUM/ALBUTEROL 0.5-2.5 MG/3 ML AMPUL NEB SCH ×4 (00:06→23:55)
[2018-03-19] MEDS: METRONIDAZOLE 500 MG/NS RTU 500 MG/100 ML RTUPB IV SCH ×5 (00:30→23:32)
[2018-03-19] MEDS: VANCOMYCIN HCL INJ 500 MG VIAL PO SCH ×5 (00:30→23:32)
[2018-03-19] MEDS: HYDROCODONE/ACETAMINOPHEN 10-325 MG TABLET PO PRN ×4 (00:31→20:03)
[2018-03-19] MEDS: GABAPENTIN 300 MG CAPSULE PO SCH ×3 (05:39→22:32)
[2018-03-19] MEDS: LANSOPRAZOLE 30 MG TAB.RAP.DR PO SCH ×2 (05:39→17:14)
[2018-03-19] MEDS: HEPARIN SOD (PORCINE) 5,000 UNIT/ML 1 ML SYRINGE SUBCUT SCH ×3 (05:39→22:32)
[2018-03-19 05:54] LABS: ANION GAP 10 (5-19); BLOOD UREA NITROGEN 6 mg/dL (7-20); CALCIUM 8.9 mg/dL (8.4-10.2); CARBON DIOXIDE 26 mmol/L (22-30); CHLORIDE 105 mmol/L (98-107); GLUCOSE 264 mg/dL (75-110); POTASSIUM 3.3 mmol/L (3.6-5.0); SODIUM 140.5 mmol/L (137-145)
[2018-03-19] MEDS: CHOLESTYRAMINE/ASPARTAME 4 GM PACKET PO SCH ×4 (08:59→22:32)
[2018-03-19] MEDS: FERROUS SULFATE 325 MG TABLET PO SCH ×2 (08:59→17:14)
[2018-03-19] MEDS: SUCRALFATE 1 GM TABLET PO SCH ×4 (08:59→22:32)
[2018-03-19] MEDS: INSULIN LISPRO 100 UNIT/ML 3 ML VIAL SUBCUT PRN ×4 (09:15→22:32)
[2018-03-19] MEDS: INSULIN GLARGINE,HUM.REC.ANLOG 1,000 UNIT/10 ML UNIT SUBCUT SCH ×2 (09:15→22:32)
[2018-03-19] MEDS: LACTOBACILLUS ACIDOPHILUS 250 MG TAB PO SCH ×2 (09:15→17:14)
[2018-03-19] MEDS: NICOTINE 14 MG/24 HR PATCH.TD24 TD PRN (11:23)
[2018-03-19] MEDS: RINGERS SOLUTION,LACTATED 1,000 ML IV PRN (11:50)
[2018-03-19] MEDS ORDERED: DICYCLOMINE HCL 10 MG CAPSULE PO PRN (14:12)
--- NOTE | 2018-03-19 14:16 | PDOC PROGRESS REPORT ---
Subjective Progress Note for:: 03/19/18 Subjective:: Patient continues to complain of abdominal pain. She does seem to be in a better mood today. She had a CAT scan done which showed no acute findings in the abdomen and pelvis. She does have compression changes in the spine at T12 and L2 which the patient was aware of prior to this admission. She has had recurrent C. difficile colitis she tells me since February and has been on recycling vancomycin and Flagyl. I have consulted infectious disease for their input to manage this patient with recurrent C. difficile colitis Reason For Visit: C DIFF COLITIS, HYPOTENSION Physical Exam Vital Signs: Temp Pulse Resp BP Pulse Ox 98.7 F 113 H 14 134/75 H 99 03/19/18 08:10 03/19/18 08:10 03/19/18 08:10 03/19/18 08:10 03/19/18 08:10 Intake & Output 03/18/18 03/19/18 03/20/18 06:59 06:59 06:59 Intake Total 2108 615 Output Total 900 400 Balance 1208 215 Weight 57.6 kg 56.2 kg General appearance: PRESENT: no acute distress, well-developed, well-nourished Head exam: PRESENT: atraumatic, normocephalic Eye exam: PRESENT: conjunctiva pink, EOMI, PERRLA. ABSENT: scleral icterus Ear exam: PRESENT: normal external ear exam Mouth exam: PRESENT: moist, tongue midline Neck exam: ABSENT: carotid bruit, JVD, lymphadenopathy, thyromegaly Respiratory exam: PRESENT: clear to auscultation megan. ABSENT: rales, rhonchi, wheezes Cardiovascular exam: PRESENT: RRR. ABSENT: diastolic murmur, rubs, systolic murmur Pulses: PRESENT: normal dorsalis pedis pul Vascular exam: PRESENT: normal capillary refill GI/Abdominal exam: PRESENT: normal bowel sounds, tenderness - LLQ. ABSENT: distended, guarding, mass, organolmegaly, rebound Rectal exam: PRESENT: deferred Extremities exam: PRESENT: full ROM. ABSENT: calf tenderness, clubbing, pedal edema Neurological exam: PRESENT: alert, awake, oriented to person, oriented to place , oriented to time, oriented to situation, CN II-XII grossly intact. ABSENT: motor sensory deficit Psychiatric exam: PRESENT: normal mood, other - Crying. ABSENT: homicidal ideation, suicidal ideation Skin exam: PRESENT: dry, intact, warm. ABSENT: cyanosis, rash Results Laboratory Results: 03/17/18 05:39 03/19/18 04:50 03/19/18 04:50 Sodium 140.5 Potassium 3.3 L Chloride 105 Carbon Dioxide 26 Anion Gap 10 BUN 6 L Creatinine 0.40 L Est GFR ( Amer) > 60 Est GFR (Non-Af Amer) > 60 Glucose 264 H Calcium 8.9 Impressions: KUB X-Ray 03/09/18 13:54 IMPRESSION: NO RADIOGRAPHIC EVIDENCE FOR ACUTE ABDOMINAL DISEASE. Abdomen/Pelvis CT 03/17/18 11:37 IMPRESSION: 1. Hiatal hernia. 2. Small stable splenic cyst. 3. Compression changes in the spine that are new since the earlier study. 4. No acute findings in the abdomen or pelvis to explain the patient's pain. Chest X-Ray 03/17/18 11:38 IMPRESSION: NO ACUTE RADIOGRAPHIC FINDING IN THE CHEST. Very large hiatal hernia Assessment & Plan - Diagnosis (1) C. difficile colitis Is this a current diagnosis for this admission?: Yes (3) Fever Qualifiers: Fever type: unspecified Qualified Code(s): R50.9 - Fever, unspecified Is this a current diagnosis for this admission?: Yes (4) UTI (urinary tract infection) Qualifiers: Urinary tract infection type: acute cystitis Hematuria presence: without hematuria Qualified Code(s): N30.00 - Acute cystitis without hematuria Is this a current diagnosis for this admission?: Yes Plan: She is growing gram-negative rods with susceptibilities pending we will follow- up (5) Pancytopenia Is this a current diagnosis for this admission?: Yes Plan: This may be due to her acute infection. Will carefully monitor this and review her current medications also (6) Diabetes mellitus Qualifiers: Diabetes mellitus type: other specified (including CHAO) Diabetes mellitus longterm insulin use: with longterm use Is this a current diagnosis for this admission?: Yes Plan: Will increase insulin (7) Hypokalemia Is this a current diagnosis for this admission?: Yes Plan: Likely secondary to copious diarrhea. Will continue to replace and monitor - Time Time Spent with patient: 15-24 minutes Medications reviewed and adjusted accordingly: Yes Anticipated discharge: Home - Inpatient Certification Based on my medical assessment, after consideration of the patient's comorbidities, presenting symptoms, or acuity I expect that the services needed warrant INPATIENT care.: Yes Medical Necessity: Need Close Monitoring Due to Risk of Patient Decompensation, Risk of Complication if Not Cared For in Hospital
[2018-03-19] MEDS ORDERED: POTASSIUM CHLORIDE 10 MEQ CAPSULE.ER PO ONE (14:30)
--- NOTE | 2018-03-19 16:12 | Progress Note ---
Provider Note Provider Note: ID Consult Note Asked to review patient's chart and provide recommendations regarding Clostridium difficile infection (CDI) treatment. Pt not seen or examined. Reviewed notes, VS, lab results, imaging reports. Ms Camarillo is a 62 year old woman with PMH including chronic back pain, DM with multiple prior admissions for HHS/DKA, COPD, anxiety, and recurrent C. difficile diarrhea. She was most recently hospitalized for generalized weakness , hypotension, and hyperglycemia on 02/26, treated for a UTI with Levaquin and CDI, and discharged on 03/06 to complete treatment with PO vancomycin as an outpatient. She was not able to fill this. Ms. Camarillo returned to [facility] 3 days later with increasing generalized cramping abdominal pain, N&V and persistent diarrhea with subjective fever at home. She was found to have hyperglycemia with blood sugar in the 400s, a stable creatinine and normal WBC count. Her abdomen was diffusely tender on exam. KUB showed no evidence of abdominal disease. PO vancomycin 500 mg Q6h was started for CDI treatment. According to notes from the ED, she had no dysuria, urgency or increased urinary frequency, but she was diagnosed with having a UTI and given cefuroxime for this diagnosis from 03/10-03/16 while also receiving treatment for CDI. IV Flagyl 500 mg q6h IV was added to PO vancomycin on 03/16. On 03/17, Ms. Camarillo had a fever of 102 F. Pt had no dysuria, but repeat U/A was performed along with CXR and CT abdomen to evaluate for source. U/A showed 3 WBC /hpf. UCx is preliminarily reported as showing >100k cfu GNRs. Cefuroxime was discontinued, and Rocephin started instead on 03/17 for suspected UTI. During her hospitalization patient has had up to 14 bowel movements recorded per day, which has recently decreased to 2 on 03/18. Cholestyramine was added on 03/18. Impression/Recommendations 1. Recurrent Clostridium difficile infection - Guideline recommended options for treatment are fidaxomicin 200 mg BID x 10 days, vancomycin in a tapered and pulsed regimen, vancomycin followed by rifaximin, or fecal transplant. If the patient has never received fidaxomicin before, I recommend treating her with fidaxomicin as it has been found to have comparable efficacy but reduced rate of recurrence compared with vancomycin. The fact that fidaxomicin is a narrow-spectrum antibiotic that disrupts the normal intestinal buster less than vancomycin may underlie this difference. Fidaxomicin is costly and getting social media analyst/case management to help check insurance coverage (or [employer] patient assistance programs) would be needed to be sure that the patient could actually continue this at home. - If the patient cannot receive fidaxomicin, patient could be treated with vancomycin 125 mg PO QID for the remainder of 10-14 days, followed by BID x 1 week, then daily x 1 week, then once every 2-3 days for another 2 weeks. At this point, I do not see a clear indication for continuing IV Flagyl in addition to PO vancomycin at the 500 mg QID dosing, since she is improving and has not had leukocytosis or AMBROSIO. In absence of megacolon or ileus that would impair PO vancomycin transit to the site of action, the higher dosage of vancomycin and need for IV Flagyl to help penetrate the gut should not be needed. Vancomycin exceeds the CHRISTOPHER of the organism many times over. - Benefit of cholestyramine is not entirely clear since it could potentially bind PO vancomycin and decrease its activity. Consider discontinuing cholestyramine. - Zinplava infusion (monoclonal antibody against Clostridium difficile toxin B) given while patient is still receiving treatment with vancomycin or fidaxomicin could also be considered to try to reduce recurrence risk. It may be available at other nearby hospitals or in some GI clinics that have an infusion center, but I do not think it is available on the formulary at [facility]. - Antibiotic exposure for indications other than C difficile should be limited to only when clearly necessary and de-escalated whenever possible to narrow- spectrum agents. 2. Suspected urinary colonization, rather than urinary tract infection - The pathogenesis of CDI relates to disruption of the normal gut microbiota in a susceptible host. Avoiding unnecessary antibiotic exposure is important to limit dysbiosis. Whether the patient truly has a UTI is unclear. She had a fever on 03/17, but fever can be due to other causes besides UTI. Urinary culture growth does not distinguish between colonization and infection. Symptoms are needed to diagnose a UTI, and she lacked dysuria. Her U/A showed no pyuria. Absence of pyuria has high negative predictive value against having a UTI. - Recommend discontinuing Rocephin and monitoring the patient. - If the patient has a Javed catheter, recommend either discontinuing or replacing it. - If there is a strong suspicion that the patient truly has a UTI despite the above, consider asking Pharmacy for assistance with aminoglycoside dosing in treating that UTI if the organism is susceptible to tobramycin or gentamicin, since aminoglycosides are very uncommonly associated with C. difficile infection. If aminoglycosides are not an option due to resistance, consider Bactrim - again, only if there is strong suspicion that pt truly has a UTI. Xu King MD [facility] Infectious Diseases pager [phone]
[2018-03-19] MEDS: LORAZEPAM 0.5 MG TABLET PO SCH ×2 (17:14→23:32)
[2018-03-19] MEDS: CEFTRIAXONE SODIUM 1,000 MG in DEXTROSE 5%-WATER 50 ML IV SCH (18:21)
[2018-03-19] MEDS: ZOLPIDEM TARTRATE 5 MG TABLET PO SCH (22:32)
[2018-03-20] MEDS: HYDROCODONE/ACETAMINOPHEN 10-325 MG TABLET PO PRN ×6 (00:24→21:56)
[2018-03-20] MEDS: LANSOPRAZOLE 30 MG TAB.RAP.DR PO SCH ×2 (05:40→17:21)
[2018-03-20] MEDS: GABAPENTIN 300 MG CAPSULE PO SCH ×3 (05:40→21:55)
[2018-03-20] MEDS: LORAZEPAM 0.5 MG TABLET PO SCH ×4 (05:44→23:25)
[2018-03-20] MEDS: VANCOMYCIN HCL INJ 500 MG VIAL PO SCH (05:44)
[2018-03-20] MEDS: METRONIDAZOLE 500 MG/NS RTU 500 MG/100 ML RTUPB IV SCH (05:44)
[2018-03-20] MEDS: HEPARIN SOD (PORCINE) 5,000 UNIT/ML 1 ML SYRINGE SUBCUT SCH ×3 (05:44→21:58)
[2018-03-20 06:35] LABS: ABSOLUTE EOSINOPHILS # (AUTO) 0.2 10^3/uL (0.0-0.6); ABSOLUTE LYMPHOCYTES (AUTO) 0.6 10^3/uL (0.5-4.7); ABSOLUTE MONOCYTES (AUTO) 0.5 10^3/uL (0.1-1.4); ABSOLUTE NEUT (AUTO) 1.9 10^3/uL (1.7-8.2); BASOPHILS % (AUTO) 0.9 % (0-2); EOSINOPHILS % (AUTO) 6.1 % (0-6); HEMATOCRIT 32.2 % (36.0-47.0); LYMPHOCYTES % (AUTO) 17.5 % (13-45); MEAN CORPUSCULAR HEMOGLOBIN 26.1 pg (27.0-33.4); MEAN CORPUSCULAR VOLUME 84 fl (80-97); MONOCYTES % (AUTO) 16.4 % (3-13); PLATELET COUNT 100 10^3/uL (150-450); RED BLOOD COUNT 3.82 10^6/uL (3.72-5.28); RED CELL DISTRIBUTION WIDTH 25.7 % (11.5-14.0); SEGMENTED NEUTROPHILS % (AUTO) 59.1 % (42-78); TOTAL CELLS COUNTED % (AUTO) 100 %; WHITE BLOOD COUNT 3.2 10^3/uL (4.0-10.5)
[2018-03-20 06:49] LABS: ANION GAP 7 (5-19); BLOOD UREA NITROGEN 6 mg/dL (7-20); CARBON DIOXIDE 27 mmol/L (22-30); CHLORIDE 109 mmol/L (98-107); GLUCOSE 75 mg/dL (75-110); POTASSIUM 3.7 mmol/L (3.6-5.0)
[2018-03-20 07:00] LABS: ANISOCYTOSIS 3+; OVALOCYTES SLIGHT; PLATELET COMMENT DECREASED; TEAR DROP CELLS SLIGHT
[2018-03-20 07:01] LABS: POIKILOCYTOSIS SLIGHT; POLYCHROMASIA SLIGHT
[2018-03-20] MEDS: IPRATROPIUM/ALBUTEROL 0.5-2.5 MG/3 ML AMPUL NEB SCH ×2 (08:17→15:54)
[2018-03-20] MEDS: SUCRALFATE 1 GM TABLET PO SCH ×4 (08:40→21:55)
[2018-03-20] MEDS: FERROUS SULFATE 325 MG TABLET PO SCH ×2 (08:40→17:22)
[2018-03-20] MEDS: CHOLESTYRAMINE/ASPARTAME 4 GM PACKET PO SCH ×4 (08:40→21:58)
[2018-03-20] MEDS: INSULIN GLARGINE,HUM.REC.ANLOG 1,000 UNIT/10 ML UNIT SUBCUT SCH ×2 (09:24→21:55)
[2018-03-20] MEDS: LACTOBACILLUS ACIDOPHILUS 250 MG TAB PO SCH ×2 (09:24→17:21)
[2018-03-20] MEDS: FIDAXOMICIN 200 MG TABLET PO SCH ×2 (11:10→21:57)
[2018-03-20] MEDS: INSULIN LISPRO 100 UNIT/ML 3 ML VIAL SUBCUT PRN ×2 (11:26→21:55)
--- NOTE | 2018-03-20 16:12 | PDOC PROGRESS REPORT ---
Subjective Progress Note for:: 03/20/18 Subjective:: Patient continues to complain of abdominal pain. She does seem to be in a better mood today. She had a CAT scan done which showed no acute findings in the abdomen and pelvis. She does have compression changes in the spine at T12 and L2 which the patient was aware of prior to this admission. She has had recurrent C. difficile colitis she tells me since February and has been on recycling vancomycin and Flagyl. I appreciate ID consult and patient has been started on Dificid Reason For Visit: C DIFF COLITIS, HYPOTENSION Physical Exam Vital Signs: Temp Pulse Resp BP Pulse Ox 98.2 F 100 15 121/75 99 03/20/18 11:38 03/20/18 14:00 03/20/18 11:38 03/20/18 11:38 03/20/18 11:38 Intake & Output 03/19/18 03/20/18 03/21/18 06:59 06:59 06:59 Intake Total 615 3117 Output Total 400 Balance 215 3117 Weight 56.2 kg 56.3 kg General appearance: PRESENT: no acute distress Head exam: PRESENT: atraumatic Ear exam: PRESENT: normal external ear exam Neck exam: ABSENT: carotid bruit, JVD, lymphadenopathy, thyromegaly Respiratory exam: PRESENT: clear to auscultation megan. ABSENT: rales, rhonchi, wheezes GI/Abdominal exam: PRESENT: tenderness - much improved LLQ Rectal exam: PRESENT: deferred Neurological exam: PRESENT: alert, awake, oriented to person, oriented to place , oriented to time, oriented to situation, CN II-XII grossly intact. ABSENT: motor sensory deficit Results Laboratory Results: 03/20/18 05:49 03/20/18 05:49 03/20/18 03/20/18 05:49 05:49 WBC 3.2 L RBC 3.82 Hgb 10.0 L Hct 32.2 L MCV 84 MCH 26.1 L MCHC 31.0 L RDW 25.7 H Plt Count 100 L Seg Neutrophils % 59.1 Lymphocytes % 17.5 Monocytes % 16.4 H Eosinophils % 6.1 H Basophils % 0.9 Absolute Neutrophils 1.9 Absolute Lymphocytes 0.6 Absolute Monocytes 0.5 Absolute Eosinophils 0.2 Absolute Basophils 0.0 Sodium 143.0 Potassium 3.7 Chloride 109 H Carbon Dioxide 27 Anion Gap 7 BUN 6 L Creatinine 0.47 L Est GFR ( Amer) > 60 Est GFR (Non-Af Amer) > 60 Glucose 75 Calcium 9.0 Impressions: KUB X-Ray 03/09/18 13:54 IMPRESSION: NO RADIOGRAPHIC EVIDENCE FOR ACUTE ABDOMINAL DISEASE. Abdomen/Pelvis CT 03/17/18 11:37 IMPRESSION: 1. Hiatal hernia. 2. Small stable splenic cyst. 3. Compression changes in the spine that are new since the earlier study. 4. No acute findings in the abdomen or pelvis to explain the patient's pain. Chest X-Ray 03/17/18 11:38 IMPRESSION: NO ACUTE RADIOGRAPHIC FINDING IN THE CHEST. Very large hiatal hernia Assessment & Plan - Diagnosis (1) C. difficile colitis Is this a current diagnosis for this admission?: Yes Plan: We will start Dificid as per ID suggestion (2) Abdominal pain, acute Is this a current diagnosis for this admission?: Yes Plan: Improved likely secondary to C. difficile colitis (3) Fever Qualifiers: Fever type: unspecified Qualified Code(s): R50.9 - Fever, unspecified Is this a current diagnosis for this admission?: Yes Plan: Resolved (4) UTI (urinary tract infection) Qualifiers: Urinary tract infection type: acute cystitis Hematuria presence: without hematuria Qualified Code(s): N30.00 - Acute cystitis without hematuria Is this a current diagnosis for this admission?: Yes Plan: Possible contamination. I have stopped ceftriaxone as ID suggestion. Patient is asymptomatic for the left lower quadrant pain which is likely from the colitis. We will continue to monitor (5) Pancytopenia Is this a current diagnosis for this admission?: Yes Plan: Patient's platelet count continued to decline currently at 100. It has declined about 50%. I will recheck tomorrow and any further decline I will stop heparin as this may be due to HIT (6) Diabetes mellitus Qualifiers: Diabetes mellitus type: other specified (including CHAO) Diabetes mellitus assisted insulin use: with assisted use Is this a current diagnosis for this admission?: Yes Plan: We will continue to adjust insulin as needed (7) Hypokalemia Is this a current diagnosis for this admission?: Yes - Time Time Spent with patient: 15-24 minutes Medications reviewed and adjusted accordingly: Yes Anticipated discharge: Home Within: within 72 hours - Inpatient Certification Based on my medical assessment, after consideration of the patient's comorbidities, presenting symptoms, or acuity I expect that the services needed warrant INPATIENT care.: Yes Medical Necessity: Need Close Monitoring Due to Risk of Patient Decompensation, Risk of Complication if Not Cared For in Hospital - Plan Summary Plan Summary: We will continue to monitor in hospital to ensure improvement in her diarrhea and response to the new antibiotic. Likely plan is for her to be discharged home the next week if she remains stable.
[2018-03-20] MEDS: NICOTINE 14 MG/24 HR PATCH.TD24 TD PRN (21:56)
[2018-03-20] MEDS: RINGERS SOLUTION,LACTATED 1,000 ML IV PRN (23:25)
[2018-03-21] MEDS: IPRATROPIUM/ALBUTEROL 0.5-2.5 MG/3 ML AMPUL NEB SCH ×3 (00:44→16:01)
[2018-03-21] MEDS: HYDROCODONE/ACETAMINOPHEN 10-325 MG TABLET PO PRN ×6 (02:17→23:11)
[2018-03-21] MEDS: HEPARIN SOD (PORCINE) 5,000 UNIT/ML 1 ML SYRINGE SUBCUT SCH ×3 (06:26→21:49)
[2018-03-21] MEDS: GABAPENTIN 300 MG CAPSULE PO SCH ×3 (06:26→21:47)
[2018-03-21] MEDS: LORAZEPAM 0.5 MG TABLET PO SCH ×4 (06:26→23:11)
[2018-03-21] MEDS: LANSOPRAZOLE 30 MG TAB.RAP.DR PO SCH ×2 (06:26→16:57)
[2018-03-21 06:50] LABS: ABSOLUTE EOSINOPHILS # (AUTO) 0.2 10^3/uL (0.0-0.6); ABSOLUTE LYMPHOCYTES (AUTO) 0.9 10^3/uL (0.5-4.7); ABSOLUTE MONOCYTES (AUTO) 0.4 10^3/uL (0.1-1.4); BASOPHILS % (AUTO) 1.2 % (0-2); EOSINOPHILS % (AUTO) 8.4 % (0-6); HEMOGLOBIN 10.1 g/dL (12.0-15.5); LYMPHOCYTES % (AUTO) 33.7 % (13-45); MEAN CORPUSCULAR HEMOGLOBIN 26.3 pg (27.0-33.4); MEAN CORPUSCULAR HGB CONC 31.6 g/dL (32.0-36.0); MEAN CORPUSCULAR VOLUME 83 fl (80-97); MONOCYTES % (AUTO) 16.7 % (3-13); PLATELET COUNT 105 10^3/uL (150-450); RED BLOOD COUNT 3.84 10^6/uL (3.72-5.28); RED CELL DISTRIBUTION WIDTH 25.6 % (11.5-14.0); TOTAL CELLS COUNTED % (AUTO) 100 %; WHITE BLOOD COUNT 2.5 10^3/uL (4.0-10.5)
[2018-03-21] MEDS ORDERED: INSULIN GLARGINE,HUM.REC.ANLOG 1,000 UNIT/10 ML UNIT SUBCUT SCH (07:50)
[2018-03-21] MEDS: SUCRALFATE 1 GM TABLET PO SCH ×4 (07:51→21:47)
[2018-03-21] MEDS: CHOLESTYRAMINE/ASPARTAME 4 GM PACKET PO SCH ×3 (07:51→16:48)
[2018-03-21] MEDS: FERROUS SULFATE 325 MG TABLET PO SCH ×2 (07:51→16:56)
[2018-03-21 08:25] LABS: ANISOCYTOSIS 3+; POIKILOCYTOSIS 1+; POLYCHROMASIA SLIGHT
[2018-03-21 08:26] LABS: OVALOCYTES 1+; PLATELET COMMENT DECREASED; TEAR DROP CELLS SLIGHT
[2018-03-21] MEDS: LACTOBACILLUS ACIDOPHILUS 250 MG TAB PO SCH ×2 (10:51→16:56)
[2018-03-21] MEDS: FIDAXOMICIN 200 MG TABLET PO SCH ×2 (10:52→21:47)
--- NOTE | 2018-03-21 12:08 | PDOC PROGRESS REPORT ---
Subjective Progress Note for:: 03/21/18 Subjective:: Patient continues to complain of abdominal pain. She does claims to be better overall. She had a CAT scan done which showed no acute findings in the abdomen and pelvis. She does have compression changes in the spine at T12 and L2 which the patient was aware of prior to this admission. She has had recurrent C. difficile colitis she tells me since February and has been on recycling vancomycin and Flagyl. I appreciate ID consult and patient has been started on Dificid day 2. She feels her stool is broken up although says she still has multiple bowel movements. Prescription for deficit was sent to her pharmacy today so that hopefully this will be ready for her when she is discharged by Friday if she remains stable Reason For Visit: C DIFF COLITIS, HYPOTENSION Physical Exam Vital Signs: Temp Pulse Resp BP Pulse Ox 97.8 F 88 16 120/74 100 03/21/18 07:56 03/21/18 08:24 03/21/18 08:24 03/21/18 07:56 03/21/18 08:24 Intake & Output 03/20/18 03/21/18 03/22/18 06:59 06:59 06:59 Intake Total 3117 3271 Balance 3117 3271 Weight 56.3 kg 56.1 kg General appearance: PRESENT: no acute distress, well-developed, well-nourished Head exam: PRESENT: atraumatic, normocephalic Eye exam: PRESENT: conjunctiva pink, EOMI, PERRLA. ABSENT: scleral icterus Ear exam: PRESENT: normal external ear exam Mouth exam: PRESENT: moist, tongue midline Neck exam: ABSENT: carotid bruit, JVD, lymphadenopathy, thyromegaly Respiratory exam: PRESENT: clear to auscultation megan. ABSENT: rales, rhonchi, wheezes Cardiovascular exam: PRESENT: RRR. ABSENT: diastolic murmur, rubs, systolic murmur Pulses: PRESENT: normal dorsalis pedis pul Vascular exam: PRESENT: normal capillary refill GI/Abdominal exam: PRESENT: normal bowel sounds, soft, tenderness - Mild vague left lower quadrant. ABSENT: distended, guarding, mass, organolmegaly, rebound Rectal exam: PRESENT: deferred Extremities exam: PRESENT: full ROM. ABSENT: calf tenderness, clubbing, pedal edema Neurological exam: PRESENT: alert, awake, oriented to person, oriented to place , oriented to time, oriented to situation, CN II-XII grossly intact. ABSENT: motor sensory deficit Psychiatric exam: PRESENT: appropriate affect, normal mood. ABSENT: homicidal ideation, suicidal ideation Skin exam: PRESENT: dry, intact, warm. ABSENT: cyanosis, rash Results Laboratory Results: 03/21/18 06:00 03/20/18 05:49 03/21/18 06:00 WBC 2.5 L RBC 3.84 Hgb 10.1 L Hct 32.0 L MCV 83 MCH 26.3 L MCHC 31.6 L RDW 25.6 H Plt Count 105 L Seg Neutrophils % 40.0 L Lymphocytes % 33.7 Monocytes % 16.7 H Eosinophils % 8.4 H Basophils % 1.2 Absolute Neutrophils 1.0 L Absolute Lymphocytes 0.9 Absolute Monocytes 0.4 Absolute Eosinophils 0.2 Absolute Basophils 0.0 03/17/18 17:50 Clean Catch Midstream Urine Culture - Final Citrobacter Amalonaticus Impressions: KUB X-Ray 03/09/18 13:54 IMPRESSION: NO RADIOGRAPHIC EVIDENCE FOR ACUTE ABDOMINAL DISEASE. Abdomen/Pelvis CT 03/17/18 11:37 IMPRESSION: 1. Hiatal hernia. 2. Small stable splenic cyst. 3. Compression changes in the spine that are new since the earlier study. 4. No acute findings in the abdomen or pelvis to explain the patient's pain. Chest X-Ray 03/17/18 11:38 IMPRESSION: NO ACUTE RADIOGRAPHIC FINDING IN THE CHEST. Very large hiatal hernia Assessment & Plan - Diagnosis (1) C. difficile colitis Is this a current diagnosis for this admission?: Yes Plan: Continue Dificid (2) Abdominal pain, acute Is this a current diagnosis for this admission?: Yes Plan: Improved (3) Fever Qualifiers: Fever type: unspecified Qualified Code(s): R50.9 - Fever, unspecified Is this a current diagnosis for this admission?: Yes Plan: Resolved (4) UTI (urinary tract infection) Qualifiers: Urinary tract infection type: acute cystitis Hematuria presence: without hematuria Qualified Code(s): N30.00 - Acute cystitis without hematuria Is this a current diagnosis for this admission?: Yes Plan: Currently off antibiotics at this may be a contaminant (5) Pancytopenia Is this a current diagnosis for this admission?: Yes Plan: Platelet count appears to be recovering. Of note patient is on etanercept (6) Diabetes mellitus Qualifiers: Diabetes mellitus type: other specified (including CHAO) Diabetes mellitus snf insulin use: with snf use Is this a current diagnosis for this admission?: Yes Plan: Her blood pressure sugars are pretty labile. We will continue to adjust insulin (7) Hypokalemia Is this a current diagnosis for this admission?: Yes Plan: Secondary to diarrhea - Time Time Spent with patient: 15-24 minutes Medications reviewed and adjusted accordingly: Yes Anticipated discharge: Home Within: within 72 hours - Inpatient Certification Based on my medical assessment, after consideration of the patient's comorbidities, presenting symptoms, or acuity I expect that the services needed warrant INPATIENT care.: Yes Medical Necessity: Significant Comorbidiites Make Outpatient Treatment Too Risky , Need for Pain Control
[2018-03-21] MEDS: RINGERS SOLUTION,LACTATED 1,000 ML IV PRN (12:29)
[2018-03-21] MEDS: INSULIN LISPRO 100 UNIT/ML 3 ML VIAL SUBCUT PRN ×2 (12:50→18:41)
[2018-03-21] MEDS: INSULIN GLARGINE,HUM.REC.ANLOG 1,000 UNIT/10 ML UNIT SUBCUT SCH (21:49)
[2018-03-22] MEDS: IPRATROPIUM/ALBUTEROL 0.5-2.5 MG/3 ML AMPUL NEB SCH ×3 (00:18→16:13)
[2018-03-22] MEDS: LORAZEPAM 0.5 MG TABLET PO SCH ×3 (05:43→18:12)
[2018-03-22] MEDS: HYDROCODONE/ACETAMINOPHEN 10-325 MG TABLET PO PRN ×4 (05:43→19:39)
[2018-03-22] MEDS: LANSOPRAZOLE 30 MG TAB.RAP.DR PO SCH ×2 (05:43→18:13)
[2018-03-22] MEDS: GABAPENTIN 300 MG CAPSULE PO SCH ×3 (05:43→21:01)
[2018-03-22] MEDS: HEPARIN SOD (PORCINE) 5,000 UNIT/ML 1 ML SYRINGE SUBCUT SCH ×3 (05:44→21:14)
[2018-03-22] MEDS: FERROUS SULFATE 325 MG TABLET PO SCH ×2 (10:31→18:12)
[2018-03-22] MEDS: SUCRALFATE 1 GM TABLET PO SCH ×3 (10:32→21:01)
[2018-03-22] MEDS: LACTOBACILLUS ACIDOPHILUS 250 MG TAB PO SCH ×2 (10:32→18:12)
[2018-03-22] MEDS: FIDAXOMICIN 200 MG TABLET PO SCH ×2 (10:33→21:01)
[2018-03-22] MEDS: INSULIN GLARGINE,HUM.REC.ANLOG 1,000 UNIT/10 ML UNIT SUBCUT SCH ×2 (10:35→21:01)
[2018-03-22] MEDS: CHOLESTYRAMINE/ASPARTAME 4 GM PACKET PO SCH ×2 (10:35→12:53)
[2018-03-22] MEDS: INSULIN LISPRO 100 UNIT/ML 3 ML VIAL SUBCUT PRN (12:50)
--- NOTE | 2018-03-22 16:20 | PDOC PROGRESS REPORT ---
Subjective Progress Note for:: 03/22/18 Subjective:: Is feeling much better and she feels she is ready to go home Reason For Visit: C DIFF COLITIS, HYPOTENSION Physical Exam Vital Signs: Temp Pulse Resp BP Pulse Ox 98.8 F 90 20 127/73 H 98 03/22/18 12:01 03/22/18 12:01 03/22/18 12:01 03/22/18 12:01 03/22/18 12:01 Intake & Output 03/21/18 03/22/18 03/23/18 06:59 06:59 06:59 Intake Total 3271 3859 Output Total 970 Balance 3271 2889 Weight 56.1 kg 55.6 kg General appearance: PRESENT: no acute distress, well-developed Head exam: PRESENT: atraumatic, normocephalic Eye exam: PRESENT: conjunctiva pink, EOMI, PERRLA. ABSENT: scleral icterus Ear exam: PRESENT: normal external ear exam Mouth exam: PRESENT: moist, tongue midline Neck exam: ABSENT: carotid bruit, JVD, lymphadenopathy, thyromegaly Respiratory exam: PRESENT: clear to auscultation megan. ABSENT: rales, rhonchi, wheezes Cardiovascular exam: PRESENT: RRR. ABSENT: diastolic murmur, rubs, systolic murmur Pulses: PRESENT: normal dorsalis pedis pul Vascular exam: PRESENT: normal capillary refill GI/Abdominal exam: PRESENT: normal bowel sounds, soft, tenderness - Vague left lower quadrant tenderness. ABSENT: distended, guarding, mass, organolmegaly, rebound Rectal exam: PRESENT: deferred Extremities exam: PRESENT: full ROM. ABSENT: calf tenderness, clubbing, pedal edema Neurological exam: PRESENT: alert, awake, oriented to person, oriented to place , oriented to time, oriented to situation, CN II-XII grossly intact. ABSENT: motor sensory deficit Psychiatric exam: PRESENT: appropriate affect, normal mood. ABSENT: homicidal ideation, suicidal ideation Skin exam: PRESENT: dry, intact, warm. ABSENT: cyanosis, rash Results Laboratory Results: 03/21/18 06:00 03/20/18 05:49 03/17/18 12:20 Blood Blood Culture - Final NO GROWTH IN 5 DAYS 03/17/18 12:31 Blood Blood Culture - Final NO GROWTH IN 5 DAYS Impressions: KUB X-Ray 03/09/18 13:54 IMPRESSION: NO RADIOGRAPHIC EVIDENCE FOR ACUTE ABDOMINAL DISEASE. Abdomen/Pelvis CT 03/17/18 11:37 IMPRESSION: 1. Hiatal hernia. 2. Small stable splenic cyst. 3. Compression changes in the spine that are new since the earlier study. 4. No acute findings in the abdomen or pelvis to explain the patient's pain. Chest X-Ray 03/17/18 11:38 IMPRESSION: NO ACUTE RADIOGRAPHIC FINDING IN THE CHEST. Very large hiatal hernia Assessment & Plan - Diagnosis (1) C. 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 (2) Abdominal pain, acute Is this a current diagnosis for this admission?: Yes (3) Fever Qualifiers: Fever type: unspecified Qualified Code(s): R50.9 - Fever, unspecified Is this a current diagnosis for this admission?: Yes (4) UTI (urinary tract infection) Qualifiers: Urinary tract infection type: acute cystitis Hematuria presence: without hematuria Qualified Code(s): N30.00 - Acute cystitis without hematuria Is this a current diagnosis for this admission?: Yes Plan: Off antibiotics and no dysuria noted (5) Pancytopenia Is this a current diagnosis for this admission?: Yes Plan: Platelet count is recovering. Will recheck in a.m. (6) Diabetes mellitus Qualifiers: Diabetes mellitus type: other specified (including CHAO) Diabetes mellitus ferry terminal agent insulin use: with long-term use Is this a current diagnosis for this admission?: Yes Plan: I have decreased her Lantus back to 30 units twice daily which was her home dose (7) Hypokalemia Is this a current diagnosis for this admission?: Yes - Time Time Spent with patient: 15-24 minutes Medications reviewed and adjusted accordingly: Yes Anticipated discharge: Home Within: within 24 hours - Inpatient Certification Based on my medical assessment, after consideration of the patient's comorbidities, presenting symptoms, or acuity I expect that the services needed warrant INPATIENT care.: Yes Medical Necessity: Need Close Monitoring Due to Risk of Patient Decompensation - Plan Summary Plan Summary: Plan is for DC in a.m. if stable
[2018-03-22] MEDS: NICOTINE 14 MG/24 HR PATCH.TD24 TD PRN (16:39)
[2018-03-23] MEDS: IPRATROPIUM/ALBUTEROL 0.5-2.5 MG/3 ML AMPUL NEB SCH ×2 (00:20→08:58)
[2018-03-23] MEDS: LORAZEPAM 0.5 MG TABLET PO SCH ×3 (00:28→12:36)
[2018-03-23] MEDS: HYDROCODONE/ACETAMINOPHEN 10-325 MG TABLET PO PRN ×3 (00:28→10:39)
[2018-03-23] MEDS: HEPARIN SOD (PORCINE) 5,000 UNIT/ML 1 ML SYRINGE SUBCUT SCH (05:41)
[2018-03-23] MEDS: LANSOPRAZOLE 30 MG TAB.RAP.DR PO SCH (05:47)
[2018-03-23] MEDS: GABAPENTIN 300 MG CAPSULE PO SCH (05:47)
[2018-03-23 06:30] LABS: ABSOLUTE EOSINOPHILS # (AUTO) 0.3 10^3/uL (0.0-0.6); ABSOLUTE LYMPHOCYTES (AUTO) 0.9 10^3/uL (0.5-4.7); ABSOLUTE MONOCYTES (AUTO) 0.4 10^3/uL (0.1-1.4); ABSOLUTE NEUT (AUTO) 1.6 10^3/uL (1.7-8.2); BASOPHILS % (AUTO) 1.2 % (0-2); EOSINOPHILS % (AUTO) 7.9 % (0-6); HEMATOCRIT 34.3 % (36.0-47.0); HEMOGLOBIN 11.1 g/dL (12.0-15.5); LYMPHOCYTES % (AUTO) 27.6 % (13-45); MEAN CORPUSCULAR HEMOGLOBIN 27.1 pg (27.0-33.4); MEAN CORPUSCULAR HGB CONC 32.2 g/dL (32.0-36.0); MEAN CORPUSCULAR VOLUME 84 fl (80-97); MONOCYTES % (AUTO) 12.9 % (3-13); PLATELET COUNT 123 10^3/uL (150-450); RED BLOOD COUNT 4.08 10^6/uL (3.72-5.28); RED CELL DISTRIBUTION WIDTH 26.6 % (11.5-14.0); SEGMENTED NEUTROPHILS % (AUTO) 50.4 % (42-78); TOTAL CELLS COUNTED % (AUTO) 100 %; WHITE BLOOD COUNT 3.2 10^3/uL (4.0-10.5)
[2018-03-23 06:52] LABS: ANION GAP 11 (5-19); BLOOD UREA NITROGEN 11 mg/dL (7-20); CALCIUM 9.2 mg/dL (8.4-10.2); CARBON DIOXIDE 29 mmol/L (22-30); CHLORIDE 103 mmol/L (98-107); GLUCOSE 112 mg/dL (75-110); POTASSIUM 4.2 mmol/L (3.6-5.0); SODIUM 142.5 mmol/L (137-145)
[2018-03-23 07:16] LABS: ANISOCYTOSIS 4+; POIKILOCYTOSIS 3+
[2018-03-23 07:17] LABS: OVALOCYTES 1+
[2018-03-23 07:39] LABS: HYPOCHROMASIA 1+; PLATELET COMMENT DECREASED; POLYCHROMASIA 1+; TEAR DROP CELLS SLIGHT
[2018-03-23] MEDS: SUCRALFATE 1 GM TABLET PO SCH ×2 (08:39→12:36)
[2018-03-23] MEDS: FERROUS SULFATE 325 MG TABLET PO SCH (10:32)
--- NOTE | 2018-03-23 10:34 | PDOC DISCHARGE SUMMARY ---
General - Admit/Disc Date/PCP Admission Date/Primary Care Provider: 03/09/18 21:48 GIUSEPPE WHITE MD Discharge Date: 03/23/18 - Discharge Diagnosis (1) C. difficile colitis Is this a current diagnosis for this admission?: Yes (2) Abdominal pain, acute Is this a current diagnosis for this admission?: Yes (3) Fever Is this a current diagnosis for this admission?: Yes (4) UTI (urinary tract infection) Is this a current diagnosis for this admission?: Yes (5) Pancytopenia Is this a current diagnosis for this admission?: Yes (6) Diabetes mellitus Is this a current diagnosis for this admission?: Yes (7) Hypokalemia Is this a current diagnosis for this admission?: Yes (8) Opioid use Is this a current diagnosis for this admission?: Yes Summary: Chronic, continuous for pain - Additional Information Discharge Diet: Diabetic Discharge Activity: Activity As Tolerated Prescriptions: Fidaxomicin [Dificid 200 mg Tablet] 200 mg PO Q12 #20 tablet Hydrocodone/Acetaminophen [[place] 10-325 mg Tablet] 1 tab PO QIDP PRN #12 tablet PRN Reason: For Pain Home Medications: Alprazolam [Xanax] 2 mg PO QIDP PRN 02/26/18 Etanercept [Enbrel] 50 mg PO TH@1000 02/26/18 Gabapentin [Neurontin 300 mg Capsule] 300 mg PO TID 02/26/18 Insulin Lispro [Humalog Insulin (Lispro) 100 unit/mL] 1 unit SQ ACHS 02/26/18 Ipratropium/Albuterol Sulfate [Combivent Respimat 4 gm Mdi] 2 puff IH QID Lansoprazole [Prevacid] 30 mg PO BID@02/26/18 Promethazine HCl 12.5 mg PO TIDP PRN 02/26/18 Rabeprazole Sodium [Aciphex] 20 mg PO BID 02/26/18 Sucralfate [Carafate 1 gm Tablet] 1 gm PO QID 02/26/18 Zolpidem Tartrate [Ambien 5 mg Tablet] 10 mg PO QHS 02/26/18 Cholestyramine/Aspartame [Questran Light 4 gm Packet] 4 gm PO MEALSHS #0 packet 03/21/18 Ferrous Sulfate [Feosol 325 mg Tablet] 325 mg PO BIDPCBS tablet 03/21/18 Fidaxomicin [Dificid 200 mg Tablet] 200 mg PO Q12 #20 tablet 03/21/18 Insulin Glargine,Hum.rec.anlog [Lantus Insulin 100 Unit/1 ml 10 ml] 40 unit SQ BID #0 03/21/18 Lactobacillus Acidophilus [Bacid 250 mg Tablet] 500 mg PO BID tab 03/21/18 Nicotine [Nicoderm 14 mg/24 Hr Transdermal Patch] 1 each TD DAILYP PRN patch.td24 03/21/18 Hydrocodone/Acetaminophen [[place] 10-325 mg Tablet] 1 tab PO QIDP PRN #12 tablet 03/23/18 Potassium Chloride [K-Tab ER] 40 meq PO DAILY #0 03/23/18 History of Present Illness History of Present Illness: JAMES MORRIS is a 62 year old female who was admitted with abdominal pain and she was also diagnosed with recurrent C. difficile colitis. She had recently been discharged from the hospital prior to readmission. Hospital Course Hospital Course: She was admitted with abdominal pain and she was also diagnosed with recurrent C. difficile colitis. She had recently been discharged from the hospital prior to readmission. CT scan of the abdomen and pelvis was done due to the persistent abdominal pain and this was essentially negative. She was started on IV Flagyl and oral vancomycin however patient continues to be symptomatic with the copious diarrhea and abdominal pain. Telephone consult with infectious disease was obtained and it was suggested to start patient on Dificid which she has received for the last 3 days. Her symptoms have improved substantially with formed stool and less frequent bowel movements and abdominal pain is somewhat improved. She was initially treated for urinary tract infection but after discussions with the infectious disease and with patient being asymptomatic it was decided to stop the antibiotic at this closed have been a colonization. Patient's blood sugar was also labile and so her insulin was adjusted multiple times initially increasing the dose of insulin and then decreasing it due to low blood sugar. At this point she has been restarted back on her home dose. At this time with no further interventions been planned and with patient's symptoms being improved she has been discharged home with Dificid which we made sure was available for her at [facility] and she was instructed to go pick this up today. Physical Exam Vital Signs: Temp Pulse Resp BP Pulse Ox 98.2 F 88 16 104/61 96 07/09/18 04:02 03/23/18 08:58 03/23/18 08:58 03/23/18 04:02 03/23/18 08:58 Intake & Output 03/22/18 03/23/18 03/24/18 06:59 06:59 06:59 Intake Total 3859 1434 Output Total 970 Balance 2889 1434 Weight 55.6 kg 55 kg General appearance: PRESENT: no acute distress, well-developed, well-nourished Head exam: PRESENT: atraumatic, normocephalic Eye exam: PRESENT: conjunctiva pink, EOMI, PERRLA. ABSENT: scleral icterus Ear exam: PRESENT: normal external ear exam Mouth exam: PRESENT: moist, tongue midline Neck exam: ABSENT: carotid bruit, JVD, lymphadenopathy, thyromegaly Respiratory exam: PRESENT: clear to auscultation megan. ABSENT: rales, rhonchi, wheezes Cardiovascular exam: PRESENT: RRR. ABSENT: diastolic murmur, rubs, systolic murmur Pulses: PRESENT: normal dorsalis pedis pul Vascular exam: PRESENT: normal capillary refill GI/Abdominal exam: PRESENT: normal bowel sounds, soft, tenderness - vague LLQ tenderness. ABSENT: distended, guarding, mass, organolmegaly, rebound Rectal exam: PRESENT: deferred Extremities exam: PRESENT: full ROM. ABSENT: calf tenderness, clubbing, pedal edema Neurological exam: PRESENT: alert, awake, oriented to person, oriented to place , oriented to time, oriented to situation, CN II-XII grossly intact. ABSENT: motor sensory deficit Psychiatric exam: PRESENT: appropriate affect, normal mood. ABSENT: homicidal ideation, suicidal ideation Skin exam: PRESENT: dry, intact, warm. ABSENT: cyanosis, rash Results Laboratory Results: 03/23/18 05:28 03/23/18 05:28 03/23/18 03/23/18 05:28 05:28 WBC 3.2 L RBC 4.08 Hgb 11.1 L Hct 34.3 L MCV 84 MCH 27.1 MCHC 32.2 RDW 26.6 H Plt Count 123 L Seg Neutrophils % 50.4 Lymphocytes % 27.6 Monocytes % 12.9 Eosinophils % 7.9 H Basophils % 1.2 Absolute Neutrophils 1.6 L Absolute Lymphocytes 0.9 Absolute Monocytes 0.4 Absolute Eosinophils 0.3 Absolute Basophils 0.0 Sodium 142.5 Potassium 4.2 Chloride 103 Carbon Dioxide 29 Anion Gap 11 BUN 11 Creatinine 0.52 Est GFR ( Amer) > 60 Est GFR (Non-Af Amer) > 60 Glucose 112 H Calcium 9.2 03/17/18 12:20 Blood Blood Culture - Final NO GROWTH IN 5 DAYS 03/17/18 12:31 Blood Blood Culture - Final NO GROWTH IN 5 DAYS Impressions: KUB X-Ray 03/09/18 13:54 IMPRESSION: NO RADIOGRAPHIC EVIDENCE FOR ACUTE ABDOMINAL DISEASE. Abdomen/Pelvis CT 03/17/18 11:37 IMPRESSION: 1. Hiatal hernia. 2. Small stable splenic cyst. 3. Compression changes in the spine that are new since the earlier study. 4. No acute findings in the abdomen or pelvis to explain the patient's pain. Chest X-Ray 03/17/18 11:38 IMPRESSION: NO ACUTE RADIOGRAPHIC FINDING IN THE CHEST. Very large hiatal hernia Qualifiers - * PATIENT BEING DISCHARGED WITH ANY OF THE FOLLOWING DIAGNOSIS: No Plan Time Spent: Greater than 30 Minutes
[2018-03-23] MEDS: LACTOBACILLUS ACIDOPHILUS 250 MG TAB PO SCH (10:35)
[2018-03-23] MEDS: FIDAXOMICIN 200 MG TABLET PO SCH (10:40)
[2018-03-23] MEDS: INSULIN GLARGINE,HUM.REC.ANLOG 1,000 UNIT/10 ML UNIT SUBCUT SCH (10:40)
[2018-03-23 11:43] VITALS: BP 109/73
== END 2018-03-23 13:10 | disposition home health service (06) | DRG 372 ==
LOC: ER 12:02 → EH 21:48 → 4S 22:49 → UNDODISIN 03-13 04:45
PROVIDERS: ADMIT Internal Medicine; ATTEND Internal Medicine
DX: A04.72 Enterocolitis due to Clostridium difficile, not specified as recurrent (principal); N39.0 Urinary tract infection, site not specified; D61.818 Other pancytopenia; E87.6 Hypokalemia; D50.8 Other iron deficiency anemias; E11.65 Type 2 diabetes mellitus with hyperglycemia; F11.90 Opioid use, unspecified, uncomplicated; G89.4 Chronic pain syndrome; Z79.899 Other long term (current) drug therapy; Z79.4 Long term (current) use of insulin; F17.200 Nicotine dependence, unspecified, uncomplicated
CPT/HCPCS: 36415; 71045; 74018; 74177; 80048; 80053; 81001; 82550; 82607; 82728; 82746; 82803; 82962; 83540; 83550; 83605; 83735; 84100; 84484; 85025; 85027; 85045; 85610; 87040; 87086; 87088; 87186; 94640; 96361; 96365; 96375; 99285; J0696; J1170; J1644; J1815; J2270; J2543; J3010; J3370; J3490; J7030; J7120; J7620; S0119

== ENCOUNTER 2018-04-20 15:45 | Emergency (ER) | payer MEDICAID ==
[2018-04-20] MEDS ORDERED: NORMAL SALINE 1000 ML 1,000 ML IV ONE ×3 (16:43→23:10)
--- NOTE | 2018-04-20 16:46 | ER Document Report ---
ED Medical Screen (RME) - General Chief Complaint: High Blood Sugar Stated Complaint: ELEVATED BLOOD SUGAR Time Seen by Provider: 04/20/18 16:38 Mode of Arrival: Ambulatory Information source: Patient Notes: Patient presents today with complaints of high blood sugar with history of diabetes and chronic diarrhea. Patient reports she believes her C. difficile is back. She reports her glucometer just Reading high. She reports she has not had a normal sugar since 3 weeks ago. Denies vomiting but reports a fever a few days ago. I have greeted and performed a rapid initial assessment of this patient. A comprehensive ED assessment and evaluation of the patient, analysis of test results and completion of the medical decision making process will be conducted by additional ED providers. TRAVEL OUTSIDE OF THE [place] IN LAST 30 DAYS: No - Related Data Allergies/Adverse Reactions: No Known Drug Allergies Allergy (Mild, Verified 04/20/18 15:47) Past Medical History - Social History Family history: None - pt adopted - Past Medical History Cardiac Medical History: Reports: Hx Hypertension Denies: Hx Congestive Heart Failure, Hx DVT, Hx Heart Attack, Hx Hypercholesterolemia, Hx Pulmonary Embolism Pulmonary Medical History: Reports: Hx Bronchitis, Hx COPD, Hx Pneumonia Denies: Hx Asthma Neurological Medical History: Reports: Hx Migraine. Denies: Hx Cerebrovascular Accident, Hx Seizures Endocrine Medical History: Reports: Hx Diabetes Mellitus Type 1. Denies: Hx Diabetes Mellitus Type 2, Hx Hyperthyroidism, Hx Hypothyroidism Renal/ Medical History: Denies: Hx Peritoneal Dialysis Malignancy Medical History: Reports: Hx Ovarian Cancer, Hx Skin Cancer GI Medical History: Reports: Hx Gastroesophageal Reflux Disease, Hx Hiatal Hernia, Hx Ulcer. Denies: Hx Cirrhosis, Hx Hepatitis, Hx Pancreatitis Musculoskeltal Medical History: Reports Hx Arthritis, Reports Hx Multiple Sclerosis, Reports Hx Musculoskeletal Deformity, Reports Hx Musculoskeletal Trauma Skin Medical History: Reports Hx Psoriasis Psychiatric Medical History: Reports: Hx Anxiety, Hx Depression - Traumatic Medical History: Reports: Hx Fractures - Bilateral humerus Infectious Medical History: Reports: Hx C-Diff. Denies: Hx Hepatitis Past Surgical History: Reports: Hx Genitourinary Surgery - Bladder, Hx Orthopedic Surgery - Right wrist, Hx Tubal Ligation, Other - cataract sx bilaterally.. Denies: Hx Hysterectomy, Hx Mastectomy, Hx Open Heart Surgery, Hx Pacemaker - Immunizations Immunizations up to date: Yes Hx Diphtheria, Pertussis, Tetanus Vaccination: Yes History of Influenza Vaccine for 06/2017 - 11/2017 Season: Yes Influenza Administration Date for 06/2017 - 11/2017 Season: 06/15/17 Physical Exam - Vital signs Vitals: Temp Pulse Resp BP Pulse Ox 98.4 F 105 H 18 125/71 97 04/20/18 16:32 04/20/18 16:32 04/20/18 16:32 04/20/18 16:32 04/20/18 16:32 Course - Vital Signs Vital signs: Temp Pulse Resp BP Pulse Ox 98.4 F 105 H 18 125/71 97 04/20/18 16:32 04/20/18 16:32 04/20/18 16:32 04/20/18 16:32 04/20/18 16:32 Doctor's Discharge - Discharge Referrals: GIUSEPPE WHITE MD [Primary Care Provider] - Follow up as needed
[2018-04-20 17:46] LABS: ABSOLUTE BASOPHILS # (AUTO) 0.1 10^3/uL (0.0-0.2); ABSOLUTE EOSINOPHILS # (AUTO) 0.2 10^3/uL (0.0-0.6); ABSOLUTE LYMPHOCYTES (AUTO) 1.3 10^3/uL (0.5-4.7); ABSOLUTE MONOCYTES (AUTO) 0.6 10^3/uL (0.1-1.4); ABSOLUTE NEUT (AUTO) 5.5 10^3/uL (1.7-8.2); BASOPHILS % (AUTO) 0.7 % (0-2); EOSINOPHILS % (AUTO) 2.9 % (0-6); HEMATOCRIT 44.1 % (36.0-47.0); HEMOGLOBIN 14.7 g/dL (12.0-15.5); LYMPHOCYTES % (AUTO) 17.3 % (13-45); MEAN CORPUSCULAR HEMOGLOBIN 28.9 pg (27.0-33.4); MEAN CORPUSCULAR HGB CONC 33.3 g/dL (32.0-36.0); MEAN CORPUSCULAR VOLUME 87 fl (80-97); MONOCYTES % (AUTO) 7.2 % (3-13); PLATELET COUNT 213 10^3/uL (150-450); RED BLOOD COUNT 5.09 10^6/uL (3.72-5.28); RED CELL DISTRIBUTION WIDTH 19.3 % (11.5-14.0); SEGMENTED NEUTROPHILS % (AUTO) 71.9 % (42-78); TOTAL CELLS COUNTED % (AUTO) 100 %; WHITE BLOOD COUNT 7.7 10^3/uL (4.0-10.5)
[2018-04-20 18:05] LABS: ALANINE AMINOTRANSFERASE 34 U/L (9-52); ALBUMIN 4.3 g/dL (3.5-5.0); ALKALINE PHOSPHATASE 167 U/L (38-126); ANION GAP 15 (5-19); ASPARTATE AMINO TRANSFERASE 35 U/L (14-36); BILIRUBIN,DIRECT 0.3 mg/dL (0.0-0.4); BILIRUBIN,TOTAL 0.5 mg/dL (0.2-1.3); BLOOD UREA NITROGEN 14 mg/dL (7-20); CALCIUM 9.8 mg/dL (8.4-10.2); CARBON DIOXIDE 22 mmol/L (22-30); CHLORIDE 100 mmol/L (98-107); POTASSIUM 4.1 mmol/L (3.6-5.0); SODIUM 136.7 mmol/L (137-145); TOTAL PROTEIN 7.3 g/dL (6.3-8.2)
[2018-04-20 18:18] LABS: GLUCOSE 621 mg/dL (75-110)
[2018-04-20] MEDS ORDERED: INSULIN REG, HUMAN 100 UNIT/ML 3 ML VIAL (PYX) IV ONE (18:23)
[2018-04-20] MEDS ORDERED: FENTANYL CITRATE INJ/PF 100 MCG/2 ML AMPUL IV ONE ×2 (19:26→22:38)
--- NOTE | 2018-04-20 23:09 | ER Document Report ---
ED General - General Chief Complaint: High Blood Sugar Stated Complaint: ELEVATED BLOOD SUGAR Time Seen by Provider: 04/20/18 16:38 Mode of Arrival: Ambulatory TRAVEL OUTSIDE OF THE [place] IN LAST 30 DAYS: No - HPI Onset: Other - 62-year-old female who presents for evaluation of elevated blood glucose in addition to recurrence of abdominal pain and diarrhea. She notes that over the last 3 days she has had worsening abdominal pain from her baseline and for the last 2 days has had on registering blood glucoses on her monitor at home. She continued her normal medical therapy until the pain in her abdomen became unbearable. She endorses fevers at home 2 days prior, does endorse some nausea without any episodes of emesis has had 6 very loose bowel movements today without any blood. Nothing seemed to make it any better nothing seemed to make it any worse, she has had recurrent C. difficile colitis in the past states that this feels exactly like that and it tends to flareup her blood glucoses. Has not eaten anything in several hours. - Related Data Allergies/Adverse Reactions: No Known Drug Allergies Allergy (Mild, Verified 04/20/18 15:47) Past Medical History - General Information source: Patient - Social History Smoking Status: Current Every Day Smoker Chew tobacco use (# tins/day): No Frequency of alcohol use: Rare Drug Abuse: None Family History: Hypertension, Other - Unknown she is adopted Patient has suicidal ideation: No Patient has homicidal ideation: No - Past Medical History Cardiac Medical History: Reports: Hx Hypertension Denies: Hx Congestive Heart Failure, Hx DVT, Hx Heart Attack, Hx Hypercholesterolemia, Hx Pulmonary Embolism Pulmonary Medical History: Reports: Hx Bronchitis, Hx COPD, Hx Pneumonia Denies: Hx Asthma Neurological Medical History: Reports: Hx Migraine. Denies: Hx Cerebrovascular Accident, Hx Seizures Endocrine Medical History: Reports: Hx Diabetes Mellitus Type 1. Denies: Hx Diabetes Mellitus Type 2, Hx Hyperthyroidism, Hx Hypothyroidism Renal/ Medical History: Denies: Hx Peritoneal Dialysis Malignancy Medical History: Reports: Hx Ovarian Cancer, Hx Skin Cancer GI Medical History: Reports: Hx Gastroesophageal Reflux Disease, Hx Hiatal Hernia, Hx Ulcer. Denies: Hx Cirrhosis, Hx Hepatitis, Hx Pancreatitis Musculoskeletal Medical History: Reports Hx Arthritis, Reports Hx Multiple Sclerosis, Reports Hx Musculoskeletal Deformity, Reports Hx Musculoskeletal Trauma Skin Medical History: Reports Hx Psoriasis Psychiatric Medical History: Reports: Hx Anxiety, Hx Depression - Traumatic Medical History: Reports: Hx Fractures - Bilateral humerus Infectious Medical History: Reports: Hx C-Diff. Denies: Hx Hepatitis Past Surgical History: Reports: Hx Genitourinary Surgery - Bladder, Hx Orthopedic Surgery - Right wrist, Hx Tubal Ligation, Other - cataract sx bilaterally.. Denies: Hx Hysterectomy, Hx Mastectomy, Hx Open Heart Surgery, Hx Pacemaker - Immunizations Immunizations up to date: Yes Hx Diphtheria, Pertussis, Tetanus Vaccination: Yes Hx Pneumococcal Vaccination: 06/15/13 Review of Systems - Review of Systems -: Yes All other systems reviewed and negative Physical Exam - Vital signs Vitals: Temp Pulse Resp BP Pulse Ox 98.4 F 105 H 18 125/71 97 04/20/18 16:32 04/20/18 16:32 04/20/18 16:32 04/20/18 16:32 04/20/18 16:32 - General General appearance: Appears well In distress: Mild - HEENT Head: Normocephalic Eyes: Normal Conjunctiva: Normal Cornea: Normal - Respiratory Respiratory status: No respiratory distress Chest status: Nontender Breath sounds: Normal Chest palpation: Normal - Cardiovascular Rhythm: Tachycardia Heart sounds: Normal auscultation - Abdominal Tenderness: Tender - diffusey, non peritonitic - Back Back: Normal - Extremities General upper extremity: Normal inspection General lower extremity: Normal inspection - Neurological Neuro grossly intact: Yes - Skin Skin Temperature: Warm Course - Re-evaluation Re-evalutation: 04/21/18 05:37 This 62-year-old female presented for evaluation of abdominal pain which she believes is a recurrence of C. difficile colitis. She had episodes of C. difficile in the past sometimes require hospitalization because a result of hyperglycemia and poorly controlled blood sugars. Today she complains of pain without any fevers or chills does have recurrent loose stools. Patient does have evidence of C. difficile colitis, will plan for CT abdomen and pelvis because of the level of discomfort that she is experiencing. CT the abdomen and pelvis does not demonstrate any obvious colitis inflammation abscesses at this time. We will plan for p.o. challenge, will control nausea and pain. Patient was able tolerate p.o. in the emergency department, her abdominal examination remained nondiagnostic diffuse tenderness without any rebound or guarding. We will plan for administration of short course of narcotics for pain control, will plan for return precautions related to her C. difficile with a treatment of metronidazole. Encouraged her to contact her surgeon tomorrow for further evaluation and potential treatment of her C. difficile. She agreed with this plan at this time , is able to tolerate p.o. was ambulatory without assistance at discharge. - Vital Signs Vital signs: Temp Pulse Resp BP Pulse Ox 98.4 F 105 H 18 114/78 100 04/20/18 16:32 04/20/18 16:32 04/20/18 16:32 04/20/18 21:38 04/20/18 21:39 - Laboratory Result Diagrams: 04/20/18 17:28 04/20/18 17:28 Laboratory results interpreted by me: 04/20/18 04/20/18 04/20/18 17:28 17:28 21:49 RDW 19.3 H Sodium 136.7 L Glucose 621 H* POC Glucose 252 H Alkaline Phosphatase 167 H Urine Glucose (UA) Ur Leukocyte Esterase 04/20/18 04/21/18 22:37 00:38 RDW Sodium Glucose POC Glucose 219 H Alkaline Phosphatase Urine Glucose (UA) >=500 H Ur Leukocyte Esterase TRACE H Discharge - Discharge Clinical Impression: C. difficile colitis Condition: Stable Disposition: HOME, SELF-CARE Instructions: C. (Clostridium) Difficile Infection ([facility]), Abdominal Pain ([facility]) Prescriptions: Morphine Sulfate [Ms-Contin Sr 15 Mg Tablet.Sa] 15 mg PO BID 7 Days #16 tablet.sa Referrals: GIUSEPPE WHITE MD [Primary Care Provider] - Follow up as needed
--- NOTE | 2018-04-21 01:13 | RADIOLOGY REPORT (SQ) ---
EXAM DESCRIPTION: CT ABDOMEN PELVIS WITH IV CONTRAST COMPLETED DATE/TME: 04/21/2018 00:00 CLINICAL HISTORY: Lower abdominal pain COMPARISON: 03/17/2018 TECHNIQUE: CT of the abdomen and pelvis performed following IV administration of 56 mL of Omnipaque 350. DLP: 700.18 mGycm FINDINGS: Lung Bases: Minimal dependent atelectasis Bones: No destructive bone lesions identified. Compression deformities at T12 and L2 are stable. Abdomen: Liver: The liver has normal size and density. No intrahepatic mass or biliary dilatation. Gallbladder: No calcified gallstones. Spleen, Pancreas, and Adrenal Glands: The knee and the spleen may represent a cyst or hemangioma stable. Adrenal glands and pancreas demonstrate no acute abnormalities. Kidneys: The kidneys have normal size and contour without evidence of solid mass or hydronephrosis. Vasculature: Aortoiliac atherosclerosis. IVC is unremarkable. The portal vein is patent. The proximal visceral and renal arteries are patent. Stomach: Large hiatal hernia. Other: No free intraperitoneal air. No free fluid or lymphadenopathy. Pelvis: Bladder: Urinary bladder is unremarkable. Bowel: No dilated loops of large or small bowel. Scattered diverticula of the colon. Appendix: Normal appendix. Pelvis: Uterus is not enlarged. IMPRESSION: 1. No acute inflammatory or obstructive process identified. 2. Stable chronic changes as detailed above. This exam was performed according to our departmental dose-optimization program, which includes automated exposure control, adjustment of the mA and/or kV according to patient size and/or use of iterative reconstruction technique.
[2018-04-21 01:35] LABS: APPEARANCE,URINE CLEAR; BILIRUBIN,URINE NEGATIVE (NEGATIVE); COLOR,URINE YELLOW; GLUCOSE, URINE >=500 mg/dL (NEGATIVE); KETONES,URINE NEGATIVE (NEGATIVE); LEUKOCYTE ESTERASE,URINE TRACE (NEGATIVE); NITRITE,URINE NEGATIVE (NEGATIVE); PROTEIN,URINE NEGATIVE (NEGATIVE); URINE SPECIFIC GRAVITY 1.025; UROBILINOGEN,URINE NEGATIVE mg/dL (<2.0)
[2018-04-21] MEDS ORDERED: MORPHINE SULFATE SR 15 MG TABLET PO ONE (01:36)
[2018-04-21 02:55] VITALS: BP 144/84
== END 2018-04-21 02:56 | disposition home or self-care (01) ==
LOC: ER 15:45
DX: A04.72 Enterocolitis due to Clostridium difficile, not specified as recurrent (principal); R11.0 Nausea; R10.9 Unspecified abdominal pain; F17.200 Nicotine dependence, unspecified, uncomplicated; I10 Essential (primary) hypertension; J44.9 Chronic obstructive pulmonary disease, unspecified; E10.9 Type 1 diabetes mellitus without complications; Z85.43 Personal history of malignant neoplasm of ovary; Z98.51 Tubal ligation status
CPT/HCPCS: 96376; 99285; 96361; 96374; 36415; 87045; 89055; 87205; 82962; 85025; 82272; 80053; 81001; 87493; 74177; J3010; J3490; J1815; J7030

== ENCOUNTER 2018-04-26 05:34 | Inpatient (IN) | payer SELFPAY ==
--- NOTE | 2018-04-26 05:53 | ER Document Report ---
ED Medical Screen (RME) - General Stated Complaint: ABDOMINAL PAIN Time Seen by Provider: 04/26/18 05:42 Notes: Patient is a 62-year-old female that comes by EMS for chief complaint of vomiting, diarrhea, fever, abdominal pain. Past medical history includes recurrent C. difficile colitis, states she is not currently on any antibiotics. Patient also has a history of noncompliance and DKA. TRAVEL OUTSIDE OF THE [place] IN LAST 30 DAYS: No - Related Data Allergies/Adverse Reactions: No Known Drug Allergies Allergy (Mild, Verified 04/20/18 15:47) Past Medical History - Social History Family history: None - pt adopted - Past Medical History Cardiac Medical History: Reports: Hx Hypertension Denies: Hx Congestive Heart Failure, Hx DVT, Hx Heart Attack, Hx Hypercholesterolemia, Hx Pulmonary Embolism Pulmonary Medical History: Reports: Hx Bronchitis, Hx COPD, Hx Pneumonia Denies: Hx Asthma Neurological Medical History: Reports: Hx Migraine. Denies: Hx Cerebrovascular Accident, Hx Seizures Endocrine Medical History: Reports: Hx Diabetes Mellitus Type 1. Denies: Hx Diabetes Mellitus Type 2, Hx Hyperthyroidism, Hx Hypothyroidism Renal/ Medical History: Denies: Hx Peritoneal Dialysis Malignancy Medical History: Reports: Hx Ovarian Cancer, Hx Skin Cancer GI Medical History: Reports: Hx Gastroesophageal Reflux Disease, Hx Hiatal Hernia, Hx Ulcer. Denies: Hx Cirrhosis, Hx Hepatitis, Hx Pancreatitis Musculoskeltal Medical History: Reports Hx Arthritis, Reports Hx Multiple Sclerosis, Reports Hx Musculoskeletal Deformity, Reports Hx Musculoskeletal Trauma Skin Medical History: Reports Hx Psoriasis Psychiatric Medical History: Reports: Hx Anxiety, Hx Depression - Traumatic Medical History: Reports: Hx Fractures - Bilateral humerus Infectious Medical History: Reports: Hx C-Diff. Denies: Hx Hepatitis Past Surgical History: Reports: Hx Genitourinary Surgery - Bladder, Hx Orthopedic Surgery - Right wrist, Hx Tubal Ligation, Other - cataract sx bilaterally.. Denies: Hx Hysterectomy, Hx Mastectomy, Hx Open Heart Surgery, Hx Pacemaker - Immunizations Immunizations up to date: Yes Hx Diphtheria, Pertussis, Tetanus Vaccination: Yes History of Influenza Vaccine for 06/2017 - 11/2017 Season: Yes Influenza Administration Date for 06/2017 - 11/2017 Season: 06/15/17 Physical Exam - General General appearance: Appears well In distress: None - Cardiovascular Rhythm: Regular. No: Tachycardia Heart sounds: Normal auscultation, S1 appreciated, S2 appreciated - Abdominal Tenderness: Tender - Generalized abdominal tenderness, nonspecific, no particular area of guarding Course - Re-evaluation Re-evalutation: I have greeted and performed a rapid initial assessment of this patient. A comprehensive ED assessment and evaluation of the patient, analysis of test results and completion of the medical decision making process will be conducted by additional ED providers. Doctor's Discharge - Discharge Referrals: GIUSEPPE WHITE MD [Primary Care Provider] - Follow up as needed
[2018-04-26] MEDS ORDERED: NORMAL SALINE 1000 ML 1,000 ML IV ONE ×3 (05:55→13:03)
[2018-04-26] MEDS ORDERED: ONDANSETRON HCL INJ/PF 4 MG/2 ML SDV IV ONE (06:36)
[2018-04-26 07:19] LABS: ABSOLUTE EOSINOPHILS # (AUTO) 0.1 10^3/uL (0.0-0.6); ABSOLUTE LYMPHOCYTES (AUTO) 1.2 10^3/uL (0.5-4.7); ABSOLUTE MONOCYTES (AUTO) 0.6 10^3/uL (0.1-1.4); BASOPHILS % (AUTO) 0.5 % (0-2); EOSINOPHILS % (AUTO) 2.3 % (0-6); HEMATOCRIT 40.2 % (36.0-47.0); HEMOGLOBIN 13.5 g/dL (12.0-15.5); LYMPHOCYTES % (AUTO) 19.7 % (13-45); MEAN CORPUSCULAR HEMOGLOBIN 28.7 pg (27.0-33.4); MEAN CORPUSCULAR HGB CONC 33.6 g/dL (32.0-36.0); MEAN CORPUSCULAR VOLUME 85 fl (80-97); MONOCYTES % (AUTO) 10.3 % (3-13); PLATELET COUNT 133 10^3/uL (150-450); RED BLOOD COUNT 4.71 10^6/uL (3.72-5.28); RED CELL DISTRIBUTION WIDTH 18.8 % (11.5-14.0); SEGMENTED NEUTROPHILS % (AUTO) 67.2 % (42-78); TOTAL CELLS COUNTED % (AUTO) 100 %
[2018-04-26 07:21] LABS: VENOUS BLOOD BASE EXCESS -0.3 mmol/L; VENOUS BLOOD HCO3 23.4 mmol/L (20-32); VENOUS BLOOD PCO2 35.8 mmHg (35-63); VENOUS BLOOD PH 7.43 (7.30-7.42)
[2018-04-26 07:34] LABS: ALANINE AMINOTRANSFERASE 37 U/L (9-52); ALBUMIN 3.9 g/dL (3.5-5.0); ALKALINE PHOSPHATASE 185 U/L (38-126); ANION GAP 13 (5-19); ASPARTATE AMINO TRANSFERASE 32 U/L (14-36); BILIRUBIN,DIRECT 0.3 mg/dL (0.0-0.4); BILIRUBIN,TOTAL 0.4 mg/dL (0.2-1.3); BLOOD UREA NITROGEN 10 mg/dL (7-20); CALCIUM 9.3 mg/dL (8.4-10.2); CARBON DIOXIDE 23 mmol/L (22-30); CHLORIDE 104 mmol/L (98-107); GLUCOSE 361 mg/dL (75-110); POTASSIUM 3.8 mmol/L (3.6-5.0); SODIUM 139.9 mmol/L (137-145); TOTAL PROTEIN 6.8 g/dL (6.3-8.2)
[2018-04-26] MEDS ORDERED: HYDROMORPHONE HCL INJ/PF 2 MG/ML AMPULE IV ONE ×2 (08:24→12:01)
[2018-04-26 09:31] LABS: APPEARANCE,URINE CLEAR; BILIRUBIN,URINE NEGATIVE (NEGATIVE); COLOR,URINE STRAW; GLUCOSE, URINE >=500 mg/dL (NEGATIVE); KETONES,URINE NEGATIVE (NEGATIVE); LEUKOCYTE ESTERASE,URINE NEGATIVE (NEGATIVE); NITRITE,URINE NEGATIVE (NEGATIVE); PROTEIN,URINE NEGATIVE (NEGATIVE); URINE SPECIFIC GRAVITY 1.017; UROBILINOGEN,URINE NEGATIVE mg/dL (<2.0)
--- NOTE | 2018-04-26 12:01 | RADIOLOGY REPORT (SQ) ---
EXAM DESCRIPTION: CT ABD/PELVIS WITH IV ORAL COMPLETED DATE/TIME: 04/26/2018 11:45 am REASON FOR STUDY: abdominal pain COMPARISON: 04/21/2018 TECHNIQUE: CT scan of the abdomen and pelvis performed using helical scanning technique with dynamic intravenous contrast injection. No oral contrast. Images reviewed with lung, soft tissue, and bone windows. Reconstructed coronal and sagittal MPR images reviewed. Delayed images for evaluation of the urinary system also acquired. All images stored on PACS. All CT scanners at this facility use dose modulation, iterative reconstruction, and/or weight based d osing when appropriate to reduce radiation dose to as low as reasonably achievable (ALARA). [facility]: Dose Right [facility]: CareDose [facility]: Dose Right [facility]: Teradose 4D [facility]: [facility] CONTRAST TYPE AND DOSE: contrast/concentration: Isovue 350.00 mg/ml; Total Contrast Delivered: 61.0 ml; Total Saline Delivered: 62.0 ml RENAL FUNCTION: GFR > 60. RADIATION DOSE: CT Rad equipment meets quality standard of care and radiation dose reduction techniq ues were employed. CTDIvol: 6.0 - 8.1 mGy. DLP: 765 mGy-cm.. LIMITATIONS: None. FINDINGS: LOWER CHEST: Large hiatal hernia. LIVER: Normal size. No masses. No dilated ducts. SPLEEN: Normal size. No focal lesions. PANCREAS: No masses. No significant calcifications. No adjacent inflammation or peripancreatic fluid collections. Pancreatic duct not dilated. GALLBLADDER: No identified stones by CT criteria. No inflammatory changes to suggest cholecystitis. ADRENAL GLANDS: No significant masses or asymmetry. RIGHT KIDNEY AND URETER: No solid masses. No significant calcifications. No hydronephrosis or hyd roureter. LEFT KIDNEY AND URETER: No solid masses. No significant calcifications. No hydronephrosis or hydr oureter. AORTA AND VESSELS: No aneurysm. No dissection. Renal arteries, SMA, celiac without stenosis. RETROPERITONEUM: No retroperitoneal adenopathy, hemorrhage or masses. BOWEL AND PERITONEAL CAVITY: Sigmoid diverticulosis. No masses or inflammatory changes. No free flui d or peritoneal masses. APPENDIX: Normal. PELVIS: No mass. No free fluid. Normal bladder. ABDOMINAL WALL: No masses. No hernias. BONES: Chronic compression fractures T12 and L2. OTHER: No other significant finding. IMPRESSION: No acute findings. TECHNICAL DOCUMENTATION: JOB ID: [id number] Quality ID # [id number]: Final reports with documentation of one or more dose reduction techniques (e.g., Au tomated exposure control, adjustment of the mA and/or kV according to patient size, use of iterative reconstruction technique) 2010 [employer]- All Rights Reserved Reading location - IP/workstation name: [email or web address]
--- NOTE | 2018-04-26 12:26 | ER Document Report ---
ED GI/ - General Chief Complaint: Abdominal Pain >50 Stated Complaint: ABDOMINAL PAIN Time Seen by Provider: 04/26/18 05:42 Mode of Arrival: Ambulatory Information source: Patient TRAVEL OUTSIDE OF THE [place] IN LAST 30 DAYS: No - HPI Patient complains to provider of: Abdominal pain, Diarrhea Onset: This morning Timing/Duration: Sudden Quality of pain: Cramping, Sharp Severity at maximum: Severe Severity in ED: Severe Pain Level: 5 Location: LLQ Vaginal bleeding (Compared to normal period): None OB ultrasound done: No vitamins taken: No Associated symptoms: Nausea Exacerbated by: Denies Relieved by: Denies Similar symptoms previously: Yes Recently seen / treated by doctor: No - Related Data Allergies/Adverse Reactions: No Known Drug Allergies Allergy (Mild, Verified 04/26/18 16:39) Past Medical History - Social History Smoking Status: Current Every Day Smoker Frequency of alcohol use: None Family History: Hypertension, Other - Unknown she is adopted Patient has suicidal ideation: No Patient has homicidal ideation: No - Past Medical History Cardiac Medical History: Reports: Hx Hypertension Denies: Hx Congestive Heart Failure, Hx DVT, Hx Heart Attack, Hx Hypercholesterolemia, Hx Pulmonary Embolism Pulmonary Medical History: Reports: Hx Bronchitis, Hx COPD, Hx Pneumonia Denies: Hx Asthma Neurological Medical History: Reports: Hx Migraine. Denies: Hx Cerebrovascular Accident, Hx Seizures Endocrine Medical History: Reports: Hx Diabetes Mellitus Type 1. Denies: Hx Diabetes Mellitus Type 2, Hx Hyperthyroidism, Hx Hypothyroidism Renal/ Medical History: Denies: Hx Peritoneal Dialysis Malignancy Medical History: Reports: Hx Ovarian Cancer, Hx Skin Cancer GI Medical History: Reports: Hx Gastroesophageal Reflux Disease, Hx Hiatal Hernia, Hx Ulcer. Denies: Hx Cirrhosis, Hx Hepatitis, Hx Pancreatitis Musculoskeletal Medical History: Reports Hx Arthritis, Reports Hx Multiple Sclerosis, Reports Hx Musculoskeletal Deformity, Reports Hx Musculoskeletal Trauma Skin Medical History: Reports Hx Psoriasis Psychiatric Medical History: Reports: Hx Anxiety, Hx Depression - Traumatic Medical History: Reports: Hx Fractures - Bilateral humerus Infectious Medical History: Reports: Hx C-Diff. Denies: Hx Hepatitis Past Surgical History: Reports: Hx Genitourinary Surgery - Bladder, Hx Orthopedic Surgery - Right wrist, Hx Tubal Ligation, Other - cataract sx bilaterally.. Denies: Hx Hysterectomy, Hx Mastectomy, Hx Open Heart Surgery, Hx Pacemaker - Immunizations Immunizations up to date: Yes Hx Diphtheria, Pertussis, Tetanus Vaccination: Yes Hx Pneumococcal Vaccination: 06/15/13 Review of Systems - Review of Systems Constitutional: denies: Chills, Fever EENT: denies: Eye pain, Eye discharge Cardiovascular: denies: Chest pain, Palpitations Respiratory: No symptoms reported Gastrointestinal: Abdominal pain, Diarrhea, Nausea. denies: Vomiting Genitourinary: No symptoms reported Female Genitourinary: No symptoms reported Musculoskeletal: No symptoms reported Skin: No symptoms reported Hematologic/Lymphatic: No symptoms reported Neurological/Psychological: No symptoms reported -: Yes All other systems reviewed and negative Physical Exam - Vital signs Vitals: Pulse Ox 95 04/26/18 06:23 - General General appearance: Appears well, Alert In distress: Severe - HEENT Head: Normocephalic, Atraumatic Eyes: Normal Pupils: PERRL - Respiratory Respiratory status: No respiratory distress Chest status: Nontender Breath sounds: Normal Chest palpation: Normal - Cardiovascular Rhythm: Regular Heart sounds: Normal auscultation Murmur: No - Abdominal Inspection: Normal Distension: No distension Bowel sounds: Normal Tenderness: Nontender Organomegaly: No organomegaly - Back Back: Normal, Nontender - Extremities General upper extremity: Normal inspection, Nontender, Normal color, Normal ROM , Normal temperature General lower extremity: Normal inspection, Nontender, Normal color, Normal ROM , Normal temperature, Normal weight bearing. No: Alecia's sign - Neurological Neuro grossly intact: Yes Cognition: Normal Orientation: AAOx4 Jose Roberto Coma Scale Eye Opening: Spontaneous Cisco Coma Scale Verbal: Oriented Jose Roberto Coma Scale Motor: Obeys Commands Cisco Coma Scale Total: 15 Speech: Normal Motor strength normal: LUE, RUE, LLE, RLE Sensory: Normal - Psychological Associated symptoms: Normal affect, Normal mood - Skin Skin Temperature: Warm Skin Moisture: Dry Skin Color: Normal Course - Vital Signs Vital signs: Temp Pulse Resp BP Pulse Ox 98.2 F 12 135/81 H 100 04/26/18 15:00 04/26/18 15:01 04/26/18 15:01 04/26/18 15:01 - Laboratory Result Diagrams: 04/26/18 06:24 04/26/18 06:24 Laboratory results interpreted by me: 04/26/18 04/26/18 04/26/18 06:24 06:24 06:24 RDW 18.8 H Plt Count 133 L VBG pH 7.43 H Creatinine 0.44 L Glucose 361 H POC Glucose Alkaline Phosphatase 185 H Urine Glucose (UA) 04/26/18 04/26/18 04/26/18 06:39 08:54 13:01 RDW Plt Count VBG pH Creatinine Glucose POC Glucose 346 H 313 H Alkaline Phosphatase Urine Glucose (UA) >=500 H - Transfer of Care Notes: 04/26/18 18:59 I consulted the hospitalist regional sales executive Dr Ge. She was patient admitted by Debra Lewis NP for further evaluation and management. 04/26/18 19:01 Discharge - Discharge Clinical Impression: C. difficile diarrhea Diarrhea Qualifiers: Diarrhea type: infectious Qualified Code(s): A09 - Infectious gastroenteritis and colitis, unspecified Abdominal pain Qualifiers: Abdominal location: generalized Qualified Code(s): R10.84 - Generalized abdominal pain Condition: Stable Disposition: ADMITTED INPATIENT Admitting Provider: Evelyn Lewis NP. Unit Admitted: Medical Floor
[2018-04-26] MEDS ORDERED: METRONIDAZOLE 500 MG TABLET PO ONE (12:56)
[2018-04-26] MEDS ORDERED: INSULIN REG, HUMAN 100 UNIT/ML 3 ML VIAL (PYX) IV ONE (13:03)
[2018-04-26] MEDS ORDERED: ACETAMINOPHEN 325 MG TABLET PO PRN (17:07)
[2018-04-26] MEDS ORDERED: ONDANSETRON 4 MG TAB.RAPDIS PO PRN (17:07)
[2018-04-26] MEDS ORDERED: DEXTROSE 40% GEL 15 GM TUBE PO PRN ×2 (17:32)
[2018-04-26] MEDS ORDERED: DEXTROSE 50%-WATER 25 GM/50 ML DISP.SYRIN IV PRN ×2 (17:32)
[2018-04-26] MEDS ORDERED: GLUCAGON,HUMAN RECOMB 1 MG INJ IM PRN (17:32)
[2018-04-26] MEDS ORDERED: VANCOMYCIN HCL INJ 500 MG VIAL PO SCH (18:00)
--- NOTE | 2018-04-26 18:05 | PDOC H&P ---
History of Present Illness Admission Date/PCP: 04/26/18 13:11 GIUSEPPE WHITE MD Patient complains of: DIARRHEA History of Present Illness: JAMES MORRIS is a 62 year old female who presents to the emergency department with C. difficile (+) diarrhea. She states that her symptoms began approximately 1 week ago and she is experiencing diffuse sharp abdominal pain that she states, "feels like contractions." Of note, the patient has a history of multiple C. difficile infections. She is followed by Dr. Salinas. The patient states that her symptoms keep her awake at night, if she falls asleep she typically will wake up realizing that she had an episode of stool incontinence. The patient states she is not taking any medications to alleviate her symptoms. PMH includes C. difficile, diabetes, COPD, psoriasis, chronic back pain, GERD Upon arrival to the ED, the patient's vitals were BP 137/105 HR 84 RR 16 T 98.7 SPO2 98% on RA. CT abdomen pelvis. She received 3L IVF and a dose of Flagyl 500 mg. Upon assessment, the patient is awake alert and oriented 3. She is resting comfortably in bed on room air. She endorses abdominal pain and cramping, nausea without vomiting, subjective fever (TMAX 102 at home), and multiple episodes of liquid diarrhea -sometimes incontinent of stool. Lungs are clear to auscultation. S1-S2, no murmur/rubs/gallops. Palpable pulses in upper and lower extremities. (+) BS. Diffuse abdominal tenderness. Plan to admit to hospitalist service for antibiotic management of recurrent C. difficile. Past Medical History Cardiac Medical History: Reports: Hypertension Denies: Congestive Heart Failure, DVT, Myocardial Infarction, Hyperlipidema, Pulmonary Embolism Pulmonary Medical History: Reports: Bronchitis, Chronic Obstructive Pulmonary Disease (COPD), Pneumonia Denies: Asthma Neurological Medical History: Reports: Migraine Denies: Seizures Endocrine Medical History: Reports: Diabetes Mellitus Type 2 Denies: Hyperthyroidism, Hypothyroidism Malignancy Medical History: Reports: Ovarian Cancer, Skin Cancer GI Medical History: Reports: Gastroesophageal Reflux Disease, Hiatal Hernia Denies: Cirrhosis, Hepatitis Musculoskeltal Medical History: Reports: Arthritis Skin Medical History: Reports: Psoriasis Psychiatric Medical History: Reports: Depression - Hematology: Reports: Anemia Denies: Hemophilia, Sickle Cell Disease Infectious Medical History: Reports: Clostridium Difficile Past Surgical History Past Surgical History: Reports: Orthopedic Surgery - Right wrist, Tubal Ligation , Other - cataract sx bilaterally. Denies: Amputation, Hysterectomy, Mastectomy, Pacemaker Social History Information Source: Patient Smoking Status: Former Smoker Number of Years Smokin Frequency of Alcohol Use: None Hx Recreational Drug Use: No Drugs: None Hx Prescription Drug Abuse: No - Advance Directive Resuscitation Status: Do Not Resuscitate Family History Parental Family History Reviewed: No - Unknown. Patient states she was adopted Children Family History Reviewed: No Sibling(s) Family History Reviewed.: No Medication/Allergy Home Medications: Alprazolam [Xanax] 2 mg PO QIDP PRN 02/26/18 Etanercept [Enbrel] 50 mg PO TH@1000 02/26/18 Gabapentin [Neurontin 300 mg Capsule] 300 mg PO TID 02/26/18 Insulin Lispro [Humalog Insulin (Lispro) 100 unit/mL] 0 unit SQ ACHS 02/26/18 Ipratropium/Albuterol Sulfate [Combivent Respimat 4 gm Mdi] 2 puff IH QID Lansoprazole [Prevacid] 30 mg PO BID@,18 02/26/18 Promethazine HCl 12.5 mg PO TIDP PRN 02/26/18 Rabeprazole Sodium [Aciphex] 20 mg PO BID 02/26/18 Sucralfate [Carafate 1 gm Tablet] 1 gm PO QID 02/26/18 Cholestyramine/Aspartame [Questran Light 4 gm Packet] 4 gm PO MEALSHS #0 packet 03/21/18 Ferrous Sulfate [Feosol 325 mg Tablet] 325 mg PO BIDPCBS tablet 03/21/18 Insulin Glargine,Hum.rec.anlog [Lantus Insulin 100 Unit/1 ml 10 ml] 40 unit SQ BID #0 03/21/18 Lactobacillus Acidophilus [Bacid 250 mg Tablet] 500 mg PO BID tab 03/21/18 Nicotine [Nicoderm 14 mg/24 Hr Transdermal Patch] 1 each TD DAILYP PRN patch.td24 03/21/18 Potassium Chloride [K-Tab ER] 40 meq PO DAILY #0 03/23/18 Hydrocodone/Acetaminophen [Compton 10-325 mg Tablet] 1 tab PO QIDP PRN 04/26/18 Zolpidem Tartrate [Ambien] 10 mg PO HSP PRN 04/26/18 Allergies/Adverse Reactions: No Known Drug Allergies Allergy (Mild, Verified 04/26/18 16:39) Review of Systems All systems: reviewed and no additional remarkable complaints except as stated Physical Exam Vital Signs: Temp Pulse Resp BP Pulse Ox 98.2 F 12 135/81 H 100 04/26/18 15:00 04/26/18 15:01 04/26/18 15:01 04/26/18 15:01 Intake & Output 04/25/18 04/26/18 04/27/18 06:59 06:59 06:59 Intake Total 1000 Balance 1000 General appearance: PRESENT: no acute distress, thin Eye exam: PRESENT: conjunctiva pink, PERRLA Mouth exam: PRESENT: moist Teeth exam: PRESENT: poor dentation Neck exam: PRESENT: full ROM Respiratory exam: PRESENT: clear to auscultation megan, symmetrical, unlabored Cardiovascular exam: PRESENT: +S1, +S2 Pulses: PRESENT: normal radial pulses, normal dorsalis pedis pul GI/Abdominal exam: PRESENT: normal bowel sounds, soft, tenderness. ABSENT: distended, guarding, rigid Rectal exam: PRESENT: deferred Extremities exam: PRESENT: full ROM Musculoskeletal exam: PRESENT: ambulatory, full ROM Neurological exam: PRESENT: alert, awake, oriented to person, oriented to place , oriented to time, oriented to situation Psychiatric exam: PRESENT: appropriate affect Skin exam: PRESENT: dry, intact, pallor, warm Results Impressions: Abdomen/Pelvis CT 04/26/18 00:00 IMPRESSION: No acute findings. Status: Imported from PACS Assessment & Plan - Diagnosis (1) Clostridium difficile diarrhea Is this a current diagnosis for this admission?: Yes Plan: + C. difficile PCR No leukocytosis. Patient is afebrile, although she reports a subjective fever of 102 at home. Nontoxic appearing. Patient has history of multiple C. difficile infections in the past Most recent treatment was 2 months ago Plan to consult ID for recommendations Initiate vancomycin 125 mg p.o. every 6 hours for 10 days then rifaximin 400 mg 3 times daily for [address] Salinas's office regarding availability of fecal microbiota transplant (2) Abdominal pain Qualifiers: Abdominal location: generalized Qualified Code(s): R10.84 - Generalized abdominal pain Is this a current diagnosis for this admission?: Yes Plan: Secondary to acute diarrhea stemming from C. difficile infection P.o. Tylenol as needed P.o. tramadol as needed Patient is well-known to hospitalist service and ED staff as narcotic drug abuser Attempt to minimize overuse of narcotic pain medication (3) Diabetes mellitus Qualifiers: Diabetes mellitus type: type 2 Diabetes mellitus complication status: without complication Is this a current diagnosis for this admission?: Yes Plan: Patient endorses history of diabetes Accu-Cheks before meals at bedtime Humalog sliding scale insulin coverage (4) DNR (do not resuscitate) Is this a current diagnosis for this admission?: Yes Plan: When asked about CODE STATUS, the patient states "just let me ." Confirmed that she does not want CPR or intubation - Time Time Spent: 30 to 50 Minutes Medications reviewed and adjusted accordingly: Yes Anticipated discharge: Home - Inpatient Certification Based on my medical assessment, after consideration of the patient's comorbidities, presenting symptoms, or acuity I expect that the services needed warrant INPATIENT care.: Yes I certify that my determination is in accordance with my understanding of Medicare's requirements for reasonable and necessary INPATIENT services [42 CFR 412.3e].: Yes Medical Necessity: Risk of Complication if Not Cared For in Hospital - Plan Summary Plan Summary: ADMIT TO HOSPITALIST. INITIATE PO VANCOMYCIN. CONSULT ID.
[2018-04-26] MEDS: TRAMADOL HCL 50 MG TABLET PO PRN (18:20)
[2018-04-26] MEDS: VANCOMYCIN HCL INJ 500 MG VIAL PO SCH (20:06)
[2018-04-26] MEDS: INSULIN LISPRO 100 UNIT/ML 3 ML VIAL SUBCUT PRN (22:02)
[2018-04-26] MEDS ORDERED: PROMETHAZINE HCL 25 MG TABLET PO PRN (23:45)
[2018-04-26] MEDS ORDERED: ZOLPIDEM TARTRATE 5 MG TABLET PO PRN (23:45)
[2018-04-26] MEDS: NORMAL SALINE 1000 ML 1,000 ML IV PRN (23:59)
[2018-04-26] MEDS ORDERED: GABAPENTIN 300 MG CAPSULE PO ONE (23:59)
[2018-04-27] MEDS ORDERED: VANCOMYCIN HCL INJ 500 MG VIAL ONE (00:25)
[2018-04-27] MEDS ORDERED: ALPRAZOLAM 0.5 MG TABLET PO PRN (00:30)
[2018-04-27] MEDS: VANCOMYCIN HCL INJ 500 MG VIAL PO SCH ×3 (00:53→18:07)
[2018-04-27 05:40] LABS: ABSOLUTE EOSINOPHILS # (AUTO) 0.2 10^3/uL (0.0-0.6); ABSOLUTE LYMPHOCYTES (AUTO) 1.3 10^3/uL (0.5-4.7); ABSOLUTE MONOCYTES (AUTO) 0.4 10^3/uL (0.1-1.4); ABSOLUTE NEUT (AUTO) 1.8 10^3/uL (1.7-8.2); BASOPHILS % (AUTO) 0.7 % (0-2); EOSINOPHILS % (AUTO) 4.9 % (0-6); HEMATOCRIT 37.7 % (36.0-47.0); HEMOGLOBIN 12.4 g/dL (12.0-15.5); LYMPHOCYTES % (AUTO) 34.4 % (13-45); MEAN CORPUSCULAR HEMOGLOBIN 28.1 pg (27.0-33.4); MEAN CORPUSCULAR HGB CONC 32.8 g/dL (32.0-36.0); MEAN CORPUSCULAR VOLUME 86 fl (80-97); MONOCYTES % (AUTO) 10.6 % (3-13); PLATELET COUNT 111 10^3/uL (150-450); RED CELL DISTRIBUTION WIDTH 18.7 % (11.5-14.0); SEGMENTED NEUTROPHILS % (AUTO) 49.4 % (42-78); TOTAL CELLS COUNTED % (AUTO) 100 %; WHITE BLOOD COUNT 3.7 10^3/uL (4.0-10.5)
[2018-04-27 05:58] LABS: ALANINE AMINOTRANSFERASE 35 U/L (9-52); ALBUMIN 3.1 g/dL (3.5-5.0); ALKALINE PHOSPHATASE 148 U/L (38-126); ANION GAP 12 (5-19); ASPARTATE AMINO TRANSFERASE 36 U/L (14-36); BILIRUBIN,DIRECT 0.2 mg/dL (0.0-0.4); BILIRUBIN,TOTAL 0.2 mg/dL (0.2-1.3); BLOOD UREA NITROGEN 7 mg/dL (7-20); CALCIUM 8.8 mg/dL (8.4-10.2); CARBON DIOXIDE 22 mmol/L (22-30); CHLORIDE 107 mmol/L (98-107); GLUCOSE 224 mg/dL (75-110); POTASSIUM 3.3 mmol/L (3.6-5.0); SODIUM 140.5 mmol/L (137-145)
[2018-04-27] MEDS ORDERED: VANCOMYCIN HCL INJ 1000 MG VIAL ONE (06:00)
[2018-04-27 06:10] LABS: ANISOCYTOSIS 2+; HYPOCHROMASIA 1+; PLATELET COMMENT ADEQUATE; POIKILOCYTOSIS SLIGHT; TEAR DROP CELLS SLIGHT
[2018-04-27] MEDS: TRAMADOL HCL 50 MG TABLET PO PRN ×2 (06:24)
[2018-04-27] MEDS: LANSOPRAZOLE 30 MG TAB.RAP.DR PO SCH ×2 (06:26→18:08)
[2018-04-27] MEDS: CHOLESTYRAMINE/ASPARTAME 4 GM PACKET PO SCH ×4 (08:46→22:39)
[2018-04-27] MEDS: NORMAL SALINE 1000 ML 1,000 ML IV PRN (08:48)
[2018-04-27] MEDS ORDERED: (PENDING PHARMACY ID) (Rabeprazole Sodium [Aciphex] 20 MG) PO SCH (10:00)
[2018-04-27] MEDS ORDERED: LACTOBACILLUS ACIDOPHILUS 250 MG TAB PO SCH (10:00)
[2018-04-27] MEDS ORDERED: IPRATROPIUM/ALBUTEROL 120 PUFF/4 GM MDI IH SCH (10:00)
[2018-04-27] MEDS ORDERED: SUCRALFATE 1 GM TABLET PO SCH (10:00)
[2018-04-27] MEDS: FERROUS SULFATE 325 MG TABLET PO SCH ×2 (11:31→18:08)
[2018-04-27] MEDS: POTASSIUM CHLORIDE 10 MEQ CAPSULE.ER PO SCH (11:31)
[2018-04-27] MEDS: GABAPENTIN 300 MG CAPSULE PO SCH ×3 (11:32→18:08)
[2018-04-27] MEDS: NICOTINE 14 MG/24 HR PATCH.TD24 TD SCH (11:34)
[2018-04-27] MEDS: ENOXAPARIN SODIUM INJ 30 MG/0.3 ML DISP.SYRIN SUBCUT SCH (11:34)
[2018-04-27] MEDS ORDERED: DICYCLOMINE HCL 20 MG TABLET PO PRN (13:39)
[2018-04-27] MEDS ORDERED: KETOROLAC TROMETHAMINE INJ/PF 30 MG/1 ML SDV IV PRN (13:41)
[2018-04-27] MEDS: HYDROCODONE/ACETAMINOPHEN 10-325 MG TABLET PO PRN ×2 (14:43→19:52)
[2018-04-27] MEDS: IPRATROPIUM/ALBUTEROL 120 PUFF/4 GM MDI IH SCH ×3 (14:45→22:38)
[2018-04-27] MEDS: POTASSI CL 20 MEQ/50 ML RIDER 20 MEQ/50 ML RTUPB IV SCH ×2 (15:38→22:38)
[2018-04-27] MEDS ORDERED: LANSOPRAZOLE 30 MG TAB.RAP.DR PO SCH (17:00)
[2018-04-27] MEDS: SUCRALFATE 1 GM TABLET PO SCH ×2 (18:08→22:38)
--- NOTE | 2018-04-27 18:29 | PDOC PROGRESS REPORT ---
Subjective Progress Note for:: 04/27/18 Subjective:: JAMES MORRIS is a 62 year old female who presents to the emergency department with C. difficile (+) diarrhea. PMH includes C. difficile, diabetes, COPD, psoriasis, chronic back pain, GERD. The patient was seen this morning on rounds, she is sitting up on the side of the bed eating her lunch. The patient endorses lower abdominal pain, states it feels like "labor contractions." The patient states she has experienced 3-4 episodes of liquid diarrhea today. No episodes of incontinence overnight. The patient denies nausea, vomiting, fever or chills. The patient reports this is her "tenth episode of c.diff" in her lifetime. She states that these recurrent episodes started just a few years ago, and oftentimes she will take oral antibiotics but it is not always confirmed that the C. difficile infection has been eradicated. She believes this is the reason why she keeps getting (re) infected. Plan is to continue oral antibiotics. Clinical pharmacist was consulted today, he recommends increasing p.o. vancomycin dose from 125 mg to 500 mg every 6 hours. Additionally, infectious disease has been consulted. Reason For Visit: C.DIFF Physical Exam Vital Signs: Temp Pulse Resp BP Pulse Ox 98.4 F 83 20 134/85 H 99 04/27/18 16:00 04/27/18 16:00 04/27/18 16:00 04/27/18 16:00 04/27/18 16:00 Intake & Output 04/26/18 04/27/18 04/28/18 06:59 06:59 06:59 Intake Total 1000 1002 Output Total 1 Balance 1000 1001 Weight 56.3 kg General appearance: PRESENT: no acute distress, well-developed, well-nourished Eye exam: PRESENT: conjunctiva pink, PERRLA Mouth exam: PRESENT: moist, tongue midline Neck exam: PRESENT: full ROM Respiratory exam: PRESENT: clear to auscultation megan, symmetrical, unlabored Cardiovascular exam: PRESENT: +S1, +S2 Pulses: PRESENT: normal radial pulses, normal dorsalis pedis pul GI/Abdominal exam: PRESENT: normal bowel sounds, soft, tenderness - DIFFUSE TENDERNESS TO LOWER ABDOMEN.. ABSENT: distended, firm, guarding Rectal exam: PRESENT: deferred Extremities exam: PRESENT: full ROM Musculoskeletal exam: PRESENT: ambulatory, full ROM Neurological exam: PRESENT: alert, awake, oriented to person, oriented to place , oriented to time, oriented to situation Psychiatric exam: PRESENT: appropriate affect Skin exam: PRESENT: dry, intact, normal color, warm Results Laboratory Results: 04/27/18 05:11 04/27/18 05:11 04/27/18 04/27/18 05:11 05:11 WBC 3.7 L RBC 4.40 Hgb 12.4 Hct 37.7 MCV 86 MCH 28.1 MCHC 32.8 RDW 18.7 H Plt Count 111 L Seg Neutrophils % 49.4 Lymphocytes % 34.4 Monocytes % 10.6 Eosinophils % 4.9 Basophils % 0.7 Absolute Neutrophils 1.8 Absolute Lymphocytes 1.3 Absolute Monocytes 0.4 Absolute Eosinophils 0.2 Absolute Basophils 0.0 Sodium 140.5 Potassium 3.3 L Chloride 107 Carbon Dioxide 22 Anion Gap 12 BUN 7 Creatinine 0.38 L Est GFR ( Amer) > 60 Est GFR (Non-Af Amer) > 60 Glucose 224 H Calcium 8.8 Total Bilirubin 0.2 AST 36 ALT 35 Alkaline Phosphatase 148 H Total Protein 6.0 L Albumin 3.1 L 04/27/18 05:11 NT-Pro-B Natriuret Pep 204 Impressions: Abdomen/Pelvis CT 04/26/18 00:00 IMPRESSION: No acute findings. Status: Imported from PACS Assessment & Plan - Diagnosis (1) Clostridium difficile diarrhea Is this a current diagnosis for this admission?: Yes Plan: + C. difficile PCR No leukocytosis. Patient is afebrile, although she reports a subjective fever of 102 at home. Nontoxic appearing. Patient has history of multiple C. difficile infections in the past Most recent treatment was 2 months ago Consulted ID for recommendations Vancomycin 500 mg p.o. every 6 hours for 10 days then rifaximin 400 mg 3 times daily for [address] Salinas's office contacted, confirmed availability of fecal microbiota transplant, which would be the appropriate treatment for this patient according to the 2017 IDSA guidelines Patient reports previous attempts at fecal transplant failed due to insurance problems, requesting discharge planning assistance. (2) Abdominal pain Qualifiers: Abdominal location: generalized Qualified Code(s): R10.84 - Generalized abdominal pain Is this a current diagnosis for this admission?: Yes Plan: Secondary to acute diarrhea stemming from C. difficile infection P.o. Tylenol as needed P.o. hydrocodone as needed Patient is well-known to hospitalist service and ED staff as narcotic drug abuser Attempt to minimize overuse of narcotic pain medication (3) Diabetes mellitus Qualifiers: Diabetes mellitus type: type 2 Diabetes mellitus complication status: without complication Is this a current diagnosis for this admission?: Yes Plan: Patient endorses history of diabetes Accu-Cheks before meals at bedtime Humalog sliding scale insulin coverage (4) DNR (do not resuscitate) Is this a current diagnosis for this admission?: Yes Plan: When asked about CODE STATUS, the patient states "just let me ." Confirmed that she does not want CPR or intubation (5) Hypokalemia Is this a current diagnosis for this admission?: Yes Plan: Secondary to GI loss stemming from C. difficile diarrhea Electrolyte replacement this a.m. Continue to monitor daily chemistries - Time Time Spent with patient: 15-24 minutes Medications reviewed and adjusted accordingly: Yes Anticipated discharge: Home - Inpatient Certification Based on my medical assessment, after consideration of the patient's comorbidities, presenting symptoms, or acuity I expect that the services needed warrant INPATIENT care.: Yes I certify that my determination is in accordance with my understanding of Medicare's requirements for reasonable and necessary INPATIENT services [42 CFR 412.3e].: Yes Medical Necessity: Risk of Complication if Not Cared For in Hospital - Plan Summary Plan Summary: Continue p.o. antibiotics. Awaiting ID consult.
--- NOTE | 2018-04-27 18:49 | Progress Note ---
Provider Note Provider Note: ID Consult Note Asked to provide input regarding treatment of patient. Reviewed chart. Pt not seen or examined. Ms. Camarillo is a 62 year old woman with PMH including chronic pain, DM, and psoriasis who has been admitted multiple times with the diagnosis of C difficile infection. The most recent prior to this hospital admission was from -03/23/18, at which time she received treatment for C difficile infection with fidaxomicin with improvement. However 1 week prior to presentation on 04/26/18, pt began to have abdominal pain, nausea, subjective fever and multiple episodes of loose stools. She was found to have diffuse abdominal tenderness on exam, no fever, no leukocytosis, no evidence of AMBROSIO, and no acute findings on CT abdomen/ pelvis. Stool was sent for C difficile PCR and was positive. PO vancomycin was initiated. Pt also had a prior episode of CDI in December 2017, at which time she appears to have been treated with PO vancomycin x 14 days. Impression/Recommendations Clostridium difficile diarrhea - agree with PO vancomycin 125 mg QID PO. If no ileus, megacolon, or hypotension/shock, there should be no need to add IV Flagyl or increase dose of PO vancomycin. Management for patients who have had multiple recurrences is challenging. Options include adding rifaximin to the end of a standard vancomycin course, adding a vancomycin taper/pulsed regimen, and fecal microbiota transplant. Rifaximin for 20 days following a standard 10- 14 day treatment course of vancomycin as outlined in the H&P is an acceptable course of action. I am not aware of studies that directly compare pulsed/ tapered vancomycin vs rifaximin chaser to suggest superiority of one over the other. Consider obtaining GI input regarding the option of fecal microbiota transplantation. The strongest quality evidence surrounds FMT in treatment of multiple recurrences. If pt does not require PPI, discontinuing may be helpful considering the link between acid suppressive medication and risk for developing CDI. Xu King MD [facility] pager [phone]
[2018-04-27] MEDS ORDERED: INSULIN GLARGINE,HUM.REC.ANLOG 1,000 UNIT/10 ML UNIT SUBCUT ONE (22:30)
[2018-04-27] MEDS ORDERED: INSULIN LISPRO 100 UNIT/ML 3 ML VIAL SUBCUT ONE (22:30)
[2018-04-27] MEDS ORDERED: POTASSI CL 20 MEQ/50 ML RIDER 20 MEQ/50 ML RTUPB IV ONE (22:33)
[2018-04-28] MEDS: VANCOMYCIN HCL INJ 500 MG VIAL PO SCH ×4 (00:14→17:30)
[2018-04-28] MEDS: HYDROCODONE/ACETAMINOPHEN 10-325 MG TABLET PO PRN ×5 (00:25→20:34)
[2018-04-28] MEDS: LANSOPRAZOLE 30 MG TAB.RAP.DR PO SCH (05:16)
[2018-04-28] MEDS: CHOLESTYRAMINE/ASPARTAME 4 GM PACKET PO SCH ×4 (08:13→21:28)
[2018-04-28] MEDS: SUCRALFATE 1 GM TABLET PO SCH ×4 (08:13→21:28)
[2018-04-28] MEDS: POTASSIUM CHLORIDE 10 MEQ CAPSULE.ER PO SCH (09:56)
[2018-04-28] MEDS: GABAPENTIN 300 MG CAPSULE PO SCH ×3 (09:57→17:19)
[2018-04-28] MEDS: FERROUS SULFATE 325 MG TABLET PO SCH ×2 (09:57→17:17)
[2018-04-28] MEDS: ENOXAPARIN SODIUM INJ 30 MG/0.3 ML DISP.SYRIN SUBCUT SCH (09:58)
[2018-04-28] MEDS: NICOTINE 14 MG/24 HR PATCH.TD24 TD SCH (09:59)
[2018-04-28] MEDS ORDERED: INSULIN GLARGINE,HUM.REC.ANLOG 1,000 UNIT/10 ML UNIT SUBCUT SCH (10:00)
[2018-04-28] MEDS: IPRATROPIUM/ALBUTEROL 120 PUFF/4 GM MDI IH SCH ×4 (10:02→21:28)
[2018-04-28] MEDS ORDERED: ALPRAZOLAM 0.5 MG TABLET PO PRN (10:06)
[2018-04-28] MEDS: INSULIN LISPRO 100 UNIT/ML 3 ML VIAL SUBCUT PRN ×3 (12:41→21:28)
[2018-04-28 13:58] LABS: ANION GAP 9 (5-19); BLOOD UREA NITROGEN 6 mg/dL (7-20); CALCIUM 8.9 mg/dL (8.4-10.2); CARBON DIOXIDE 21 mmol/L (22-30); CHLORIDE 106 mmol/L (98-107); GLUCOSE 390 mg/dL (75-110); POTASSIUM 4.3 mmol/L (3.6-5.0); SODIUM 136.3 mmol/L (137-145)
[2018-04-28] MEDS: INSULIN GLARGINE,HUM.REC.ANLOG 1,000 UNIT/10 ML UNIT SUBCUT SCH (17:20)
[2018-04-28] MEDS: LACTOBACILLUS ACIDOPHILUS 250 MG TAB PO SCH (17:30)
--- NOTE | 2018-04-28 17:43 | PDOC PROGRESS REPORT ---
Subjective Progress Note for:: 04/28/18 Subjective:: The patient is a 62-year-old female, well-known to our service, who was admitted with a complaint of C. difficile diarrhea and abdominal pain. The patient was seen on morning rounds. She is found resting in a comfortably on room air. She initially states that she is feeling well and that her abdominal pain has improved significantly, however, then self corrects to stating that this is due to the increase in her pain medications yesterday ( from tramadol to hydrocodone to mirror the patient's home medication regiment). She reports that she has had 3 loose stools this morning. Unfortunately, the patient did not notify nursing of her bowel movements in time for objective verification as she had been asked to do. We discussed her recent multiple admissions for C. difficile colitis. The patient states that she has been taking all antibiotics as recommended and following up with her GI physician as instructed. She reports that her GI provider is enrolling her in a study which is what is preventing her from receiving fecal transplants; this is noted to be different than was reported to the previous provider. When asked for clarification, the patient became flustered. Of note, this is a similar discussion as was had in December of this year between the patient and myself at one of her previous admissions for diarrhea/abdominal pain. Overall, the patient reports that she is improved. She denies fever, chills, body aches, chest pain, palpitations, dyspnea, orthopnea, nausea and vomiting. She does endorse intermittent generalized abdominal discomfort described as "labor pains" and continued loose, low volume, stools 6-8 times daily. The patient does ask when she will be ready to be discharged to home. She has no other questions or concerns at this time. No concerns per nursing. Reason For Visit: C.DIFF Physical Exam Vital Signs: Temp Pulse Resp BP Pulse Ox 98.6 F 84 12 145/90 H 98 04/28/18 15:42 04/28/18 15:42 04/28/18 15:42 04/28/18 15:42 04/28/18 15:42 Intake & Output 04/27/18 04/28/18 04/29/18 06:59 06:59 06:59 Intake Total 1000 1506 1671 Output Total 4 Balance 1000 1502 1671 Weight 56.3 kg 56.1 kg General appearance: PRESENT: no acute distress, well-developed, well-nourished Head exam: PRESENT: atraumatic, normocephalic Eye exam: PRESENT: conjunctiva pink, EOMI, PERRLA. ABSENT: scleral icterus Ear exam: PRESENT: normal external ear exam Mouth exam: PRESENT: moist, tongue midline Neck exam: ABSENT: carotid bruit, JVD, lymphadenopathy, thyromegaly Respiratory exam: PRESENT: clear to auscultation megan, symmetrical, unlabored. ABSENT: rales, rhonchi, wheezes Cardiovascular exam: PRESENT: RRR, +S1, +S2. ABSENT: diastolic murmur, rubs, systolic murmur Pulses: PRESENT: normal dorsalis pedis pul Vascular exam: PRESENT: normal capillary refill GI/Abdominal exam: PRESENT: normal bowel sounds, soft, tenderness - Diffuse; not appreciably worsened with palpation. ABSENT: distended, guarding, mass, organolmegaly, rebound Rectal exam: PRESENT: deferred Extremities exam: PRESENT: full ROM. ABSENT: calf tenderness, clubbing, pedal edema Neurological exam: PRESENT: alert, awake, oriented to person, oriented to place , oriented to time, oriented to situation, CN II-XII grossly intact. ABSENT: motor sensory deficit Psychiatric exam: PRESENT: appropriate affect, normal mood. ABSENT: homicidal ideation, suicidal ideation Skin exam: PRESENT: dry, intact, warm. ABSENT: cyanosis, rash Results Laboratory Results: 04/27/18 05:11 04/28/18 13:25 04/28/18 13:25 Sodium 136.3 L Potassium 4.3 Chloride 106 Carbon Dioxide 21 L Anion Gap 9 BUN 6 L Creatinine 0.48 L Est GFR ( Amer) > 60 Est GFR (Non-Af Amer) > 60 Glucose 390 H Calcium 8.9 Magnesium 1.7 04/27/18 05:11 NT-Pro-B Natriuret Pep 204 Impressions: Abdomen/Pelvis CT 04/26/18 00:00 IMPRESSION: No acute findings. Assessment & Plan - Diagnosis (1) Clostridium difficile diarrhea Is this a current diagnosis for this admission?: Yes Plan: C. difficile PCR is positive, however, this is known to be possible for several months following active infection and does not necessarily indicate she currently has an active infection at this time. WBCs remain normal, patient is afebrile, she is nontoxic appearing, with a benign abdominal exam. The patient does report a history of multiple C. difficile infections and does have recent readmissions to our facility over the last several months. The patient is well known to our service, and there is question at each visit as to whether or not the patient is experiencing an active C. difficile infection, or is seeking admission for secondary gain. The patient denies nausea, vomiting, is tolerating a regular diet, and reports frequent low volume loose stools that she is able to manage on her own and so are not objectively verified by nursing staff despite multiple requests that the patient allow us to do so. Will obtain C. difficile toxin A/B studies; unfortunately, this is a send out lab and results will not be available for 2-3 days. We will continue current antibiotic plan; vancomycin 125 mg p.o. every 6 hours 10 days (day #2), followed by rifampin 400 mg p.o. 3 times daily 20 days. The patient's hydrocodone is decreased to her outpatient regiment, this was verified with both the [place] controlled substance database reporting system and with a phone call to the patient's primary care's office. Encouraged Bentyl as needed. Phenergan is discontinued, Zofran is available as needed. Prevacid is discontinued per IDs recommendation. Continue lactobacillus. (2) Abdominal pain Qualifiers: Abdominal location: generalized Qualified Code(s): R10.84 - Generalized abdominal pain Is this a current diagnosis for this admission?: Yes Plan: Unclear etiology; secondary to acute diarrhea stemming from C. difficile infection versus chronic opiate use/withdrawal versus fictitious. CT of the abdomen/pelvis is benign. WBCs are normal, patient remains afebrile, exam is unremarkable. The patient is well-known to the hospitalist service and ED staff is a narcotic drug abuser. Narcotic pain medications will be limited to matching her outpatient schedule. Remaining plan as outlined elsewhere. (3) Diabetes mellitus Qualifiers: Diabetes mellitus type: type 2 Diabetes mellitus complication status: without complication Is this a current diagnosis for this admission?: Yes Plan: The patient is placed on a consistent carb diet. Accu-Cheks before meals and at bedtime with Humalog for sliding scale coverage. Hypoglycemia protocols in place. (4) Hypertension Qualifiers: Hypertension type: essential hypertension Qualified Code(s): I10 - Essential (primary) hypertension Is this a current diagnosis for this admission?: Yes Plan: Blood pressures are mildly elevated today; 145/90. Does not appear that the patient is on home antihypertensives. We will continue to monitor and consider initiation of medication; likely ARB. (5) Opiate dependence, continuous Is this a current diagnosis for this admission?: Yes Plan: [place] controlled substance database was reviewed. A follow-up phone call was placed to the patient's PCP, Dr. Roman, and I spoke with his nurse. The patient is typically prescribed hydrocodone/APAP 10-325, 1 tab every 6 hours # 120. She is provided 2 prescriptions at each visit, one to be filled at that time and 1 postdated for 30 days later. Reviewing the patient's recent admissions and prescription filled, it does appear that the patient is filling her first prescription, being admitted for C. difficile/abdominal pain approximately 3 weeks later, is discharged and then fills her second prescription. This is suspicious for medication overuse; the patient could be utilizing her initial prescription at a higher rate, getting admitted to cover the gap, and then discharged when her second prescription ibecomes valid. Dr. Roman's nurse verifies that this has been suspected by them as well. She reports that the patient has failed to appear for multiple pill counts and has denied multiple referrals to pain management clinics. She advises that Dr. Roman's last day is this week and it is anticipated that Ms. Camarillo will not be receiving similar prescriptions from her new provider. The patient was gently asked if there was a potential for medication overuse; she quickly became flustered and was unable to directly answer no, but instead gives convoluted stories with regard to her numerous C. difficile infections causing her to have aggravated pain. Ms. Camarillo is notified that she will be allowed her currently prescribed pain medication regiment of Hydrocodone 10-325 every 6 hours and that any additional pain will be managed with Bentyl, tylenol, and nonpharmacological interventions. (6) Drug-seeking behavior Is this a current diagnosis for this admission?: Yes Plan: Review of the [place] database and with the patient's PCP/nurse clarifies that the patient is not currently prescribed Ambien or Xanax. Hydrocodone use is outlined above. Ambien and Xanax are discontinued; may consider BuSpar or trazodone if the patient experiences anxiety or has difficulty with sleeping. (7) Hypokalemia Is this a current diagnosis for this admission?: Yes Plan: Replete. We will continue to monitor and replace as necessary. - Time Time Spent with patient: 35 or more minutes Medications reviewed and adjusted accordingly: Yes Anticipated discharge: Home Within: within 24 hours
[2018-04-28] MEDS ORDERED: LANSOPRAZOLE 30 MG TAB.RAP.DR PO SCH (18:00)
[2018-04-29] MEDS: VANCOMYCIN HCL INJ 500 MG VIAL PO SCH ×3 (00:17→12:03)
[2018-04-29] MEDS: HYDROCODONE/ACETAMINOPHEN 10-325 MG TABLET PO PRN ×2 (03:19→08:49)
[2018-04-29] MEDS: SUCRALFATE 1 GM TABLET PO SCH ×2 (08:43→12:03)
[2018-04-29] MEDS: CHOLESTYRAMINE/ASPARTAME 4 GM PACKET PO SCH ×2 (08:43→11:48)
[2018-04-29] MEDS: INSULIN LISPRO 100 UNIT/ML 3 ML VIAL SUBCUT PRN ×2 (08:44→12:04)
[2018-04-29] MEDS: POTASSIUM CHLORIDE 10 MEQ CAPSULE.ER PO SCH (10:24)
[2018-04-29] MEDS: GABAPENTIN 300 MG CAPSULE PO SCH ×2 (10:24→13:12)
[2018-04-29] MEDS: NICOTINE 14 MG/24 HR PATCH.TD24 TD SCH (10:24)
[2018-04-29] MEDS: LACTOBACILLUS ACIDOPHILUS 250 MG TAB PO SCH (10:24)
[2018-04-29] MEDS: FERROUS SULFATE 325 MG TABLET PO SCH (10:24)
[2018-04-29] MEDS: ENOXAPARIN SODIUM INJ 30 MG/0.3 ML DISP.SYRIN SUBCUT SCH (10:25)
[2018-04-29] MEDS: INSULIN GLARGINE,HUM.REC.ANLOG 1,000 UNIT/10 ML UNIT SUBCUT SCH (10:25)
[2018-04-29] MEDS: IPRATROPIUM/ALBUTEROL 120 PUFF/4 GM MDI IH SCH ×2 (12:03→13:11)
[2018-04-29 12:26] VITALS: BP 132/78
--- NOTE | 2018-04-30 21:34 | PDOC DISCHARGE SUMMARY ---
General - Admit/Disc Date/PCP Admission Date/Primary Care Provider: 04/26/18 13:11 [facility] WHITE MD Discharge Date: 04/29/18 - Discharge Diagnosis (1) Clostridium difficile diarrhea Is this a current diagnosis for this admission?: Yes Summary: C. difficile PCR is positive. C. difficile toxin A/B is pending. CT of the ABD/Pelvis was negative for acute findings; does not chronic compression fractures of T11/12 Although the patient's PCR is positive, this is known to be possible for several months following active infection. Current C. difficile toxin A/B is pending; the patient had negative testing in December, January, and February of this year. Her WBCs remain normal, she is afebrile, nontoxic appearing, with a benign abdominal exam. The patient denies nausea, vomiting, is tolerating a regular diet, and reports frequent low volume loose stools that she is able to manage on her own and so are not objectively verified by nursing staff despite multiple requests that the patient allow us to do so. I have low suspicion that the patient has an active C. Diff infection and may instead have IBS, Diarrhea predominant, or possibly fictitious diarrhea for secondary gain. The patient reports that she is established with Dr. Salinas's office and is not a candidate for fecal transplant but is being considered for a drug trial. She is encouraged to follow up with his office to discuss her frequent diarrheal episodes. Infectious disease was consulted and provided recommendations for management of recurrent c. diff infections. As the c. diff toxin is not yet available, the patient is requesting to be discharged, and consequences of undertreated infection can be grave; the patient is provided prescriptions to complete a course of vancomycin 125 mg p.o. every 6 hours 10 days, followed by rifaximin 400 mg p.o. 3 times daily 20 days. She is also provided prescriptions for Bacid and Bentyl. (2) Abdominal pain Is this a current diagnosis for this admission?: Yes Summary: Unclear etiology; improved. Pain is currently managed with her home dose/ schedule of [place]. Plan as above. (3) Diabetes mellitus Is this a current diagnosis for this admission?: Yes (4) Hypertension Is this a current diagnosis for this admission?: Yes Summary: Pt was noted to have intermittent hypertension. Recommend outpatient follow up and consideration of antihypertensive medications. The patient is counselled on lifestyle modification. (5) Opiate dependence, continuous Is this a current diagnosis for this admission?: Yes Summary: [place] controlled substance database was reviewed. A follow-up phone call was placed to her PCP's office and I spoke with his nurse. The patient is typically prescribed hydrocodone/APAP 10-325, 1 tab every 6 hours #120. She is provided 2 prescriptions at each visit, one to be filled at that time and 1 postdated for 30 days later. Reviewing the patient's recent admissions and prescription filled, it does appear that the patient is filling her first prescription, being admitted for C. difficile/abdominal pain approximately 3 weeks later, is discharged and then fills her second prescription. This is suspicious for medication overuse; the patient could be utilizing her initial prescription at a higher rate, getting admitted to cover the gap, and then discharged when her second prescription ibecomes valid. The patient was gently asked if there was a potential for medication overuse; she quickly became flustered and was unable to directly answer no, but instead gives convoluted stories with regard to her numerous C. difficile infections causing her to have aggravated pain. Recommend consideration of Pain Management referral versus providing only one month Rx at each visit. (6) Drug-seeking behavior Is this a current diagnosis for this admission?: Yes (7) Hypokalemia Is this a current diagnosis for this admission?: Yes Summary: Replete. - Additional Information Resuscitation Status: Do Not Resuscitate Discharge Diet: Diabetic Discharge Activity: Activity As Tolerated, Balance Activity w/Rest Prescriptions: Dicyclomine HCl [Bentyl 20 mg Tablet] 20 mg PO Q6HP PRN #60 tablet PRN Reason: Lactobacillus Acidophilus [Bacid 250 mg Tablet] 500 mg PO BID #60 tab Rifaximin [Xifaxan] 400 mg PO Q8 #60 tablet Vancomycin HCl [Vancocin HCl] 125 mg PO Q6H #32 capsule Home Medications: Etanercept [Enbrel] 50 mg PO TH@1000 02/26/18 Gabapentin [Neurontin 300 mg Capsule] 300 mg PO TID 02/26/18 Insulin Lispro [Humalog Insulin (Lispro) 100 unit/mL] 0 unit SQ ACHS 02/26/18 Ipratropium/Albuterol Sulfate [Combivent Respimat 4 gm Mdi] 2 puff IH QID Sucralfate [Carafate 1 gm Tablet] 1 gm PO QID 02/26/18 Cholestyramine/Aspartame [Questran Light 4 gm Packet] 4 gm PO MEALSHS #0 packet 03/21/18 Ferrous Sulfate [Feosol 325 mg Tablet] 325 mg PO BIDPCBS tablet 03/21/18 Insulin Glargine,Hum.rec.anlog [Lantus Insulin 100 Unit/1 ml 10 ml] 40 unit SQ BID #0 03/21/18 Lactobacillus Acidophilus [Bacid 250 mg Tablet] 500 mg PO BID tab 03/21/18 Nicotine [Nicoderm 14 mg/24 Hr Transdermal Patch] 1 each TD DAILYP PRN patch.td24 03/21/18 Potassium Chloride [K-Tab ER] 40 meq PO DAILY #0 03/23/18 Dicyclomine HCl [Bentyl 20 mg Tablet] 20 mg PO Q6HP PRN #60 tablet 04/29/18 Lactobacillus Acidophilus [Bacid 250 mg Tablet] 500 mg PO BID #60 tab 04/29/18 Rifaximin [Xifaxan] 400 mg PO Q8 #60 tablet 04/29/18 Vancomycin HCl [Vancocin HCl] 125 mg PO Q6H #32 capsule 04/29/18 History of Present Illness History of Present Illness: Per H&P by ELIZABETH Ferris/Dr. Ledesma: JAMES MORRIS is a 62 year old female who presents to the emergency department with C. difficile (+) diarrhea. She states that her symptoms began approximately 1 week ago and she is experiencing diffuse sharp abdominal pain that she states, "feels like contractions." Of note, the patient has a history of multiple C. difficile infections. She is followed by Dr. Salinas. The patient states that her symptoms keep her awake at night, if she falls asleep she typically will wake up realizing that she had an episode of stool incontinence. The patient states she is not taking any medications to alleviate her symptoms. PMH includes C. difficile, diabetes, COPD, psoriasis, chronic back pain, GERD Upon arrival to the ED, the patient's vitals were BP 137/105 HR 84 RR 16 T 98.7 SPO2 98% on RA. CT abdomen pelvis. She received 3L IVF and a dose of Flagyl 500 mg. Upon assessment, the patient is awake alert and oriented 3. She is resting comfortably in bed on room air. She endorses abdominal pain and cramping, nausea without vomiting, subjective fever (TMAX 102 at home), and multiple episodes of liquid diarrhea -sometimes incontinent of stool. Lungs are clear to auscultation. S1-S2, no murmur/rubs/gallops. Palpable pulses in upper and lower extremities. (+) BS. Diffuse abdominal tenderness. Plan to admit to hospitalist service for antibiotic management of recurrent C. difficile. Physical Exam Vital Signs: Temp Pulse Resp BP Pulse Ox 98.3 F 83 18 132/78 H 98 04/29/18 12:15 04/29/18 12:15 04/29/18 12:15 04/29/18 12:15 04/29/18 12:15 Intake & Output 04/29/18 04/30/18 05/01/18 06:59 06:59 06:59 Intake Total 2030 Balance 2030 Weight 56 kg General appearance: PRESENT: no acute distress, well-developed, well-nourished Head exam: PRESENT: atraumatic, normocephalic Eye exam: PRESENT: conjunctiva pink, EOMI, PERRLA. ABSENT: scleral icterus Ear exam: PRESENT: normal external ear exam Mouth exam: PRESENT: moist, tongue midline Neck exam: ABSENT: carotid bruit, JVD, lymphadenopathy, thyromegaly Respiratory exam: PRESENT: clear to auscultation megan, symmetrical, unlabored. ABSENT: rales, rhonchi, wheezes Cardiovascular exam: PRESENT: RRR, +S1, +S2. ABSENT: diastolic murmur, rubs, systolic murmur Pulses: PRESENT: normal dorsalis pedis pul Vascular exam: PRESENT: normal capillary refill GI/Abdominal exam: PRESENT: normal bowel sounds, soft, tenderness - Generalized ; not appreciably worsened with palpation. ABSENT: distended, guarding, mass, organolmegaly, rebound Rectal exam: PRESENT: deferred Extremities exam: PRESENT: full ROM. ABSENT: calf tenderness, clubbing, pedal edema Neurological exam: PRESENT: alert, awake, oriented to person, oriented to place , oriented to time, oriented to situation, CN II-XII grossly intact. ABSENT: motor sensory deficit Psychiatric exam: PRESENT: appropriate affect, normal mood. ABSENT: homicidal ideation, suicidal ideation Skin exam: PRESENT: dry, intact, warm. ABSENT: cyanosis, rash Results Laboratory Results: 04/27/18 05:11 04/28/18 13:25 04/27/18 05:11 NT-Pro-B Natriuret Pep 204 Impressions: Abdomen/Pelvis CT 04/26/18 00:00 IMPRESSION: No acute findings. Qualifiers - * PATIENT BEING DISCHARGED WITH ANY OF THE FOLLOWING DIAGNOSIS: No Plan Discharge Plan: Discharge to home. Follow up with primary care provide within 1 week. Follow up with GI as scheduled. Recommend establishing with a pain management provider. Time Spent: Less than 30 Minutes
== END 2018-04-29 14:00 | disposition home or self-care (01) | DRG 372 ==
LOC: ER 05:34 → EH 13:11 → 4W 20:36 → 4S 04-27 16:06
PROVIDERS: ADMIT Internal Medicine; ATTEND Internal Medicine
DX: A04.72 Enterocolitis due to Clostridium difficile, not specified as recurrent (principal); F11.20 Opioid dependence, uncomplicated; Z66 Do not resuscitate; I10 Essential (primary) hypertension; K21.9 Gastro-esophageal reflux disease without esophagitis; E10.8 Type 1 diabetes mellitus with unspecified complications; E87.6 Hypokalemia; F41.8 Other specified anxiety disorders; F17.210 Nicotine dependence, cigarettes, uncomplicated; Z79.4 Long term (current) use of insulin; Z79.899 Other long term (current) drug therapy; Z76.5 Malingerer [conscious simulation]
CPT/HCPCS: 36415; 74177; 80048; 80053; 81001; 82272; 82803; 82962; 83690; 83735; 83880; 85025; 87040; 87045; 87205; 87324; 87493; 89055; 96361; 96374; 96375; 96376; 99285; J1170; J1650; J1815; J2405; J3370; J3480; J3490; J7030

== ENCOUNTER 2018-05-29 13:09 | Emergency (ER) | payer MEDICAID ==
[2018-05-29] MEDS ORDERED: NORMAL SALINE 500 ML IV ONE (13:23)
[2018-05-29] MEDS ORDERED: INSULIN REG, HUMAN 100 UNIT/ML 3 ML VIAL (PYX) IV ONE (13:23)
[2018-05-29] MEDS ORDERED: FENTANYL CITRATE INJ/PF 100 MCG/2 ML AMPUL IV ONE ×2 (13:24→15:38)
[2018-05-29] MEDS ORDERED: INSULIN REG, HUMAN 100 UNIT/ML 3 ML VIAL (PYX) ONE ×2 (13:36→13:58)
[2018-05-29] MEDS ORDERED: FENTANYL CITRATE INJ/PF 100 MCG/2 ML AMPUL ONE (13:37)
--- NOTE | 2018-05-29 13:55 | ER Document Report ---
ED General - General Chief Complaint: High Blood Sugar Stated Complaint: DIFFICULTY BREATHING Time Seen by Provider: 05/29/18 13:15 Mode of Arrival: Ambulatory TRAVEL OUTSIDE OF THE [place] IN LAST 30 DAYS: No - HPI Patient complains to provider of: weakness Onset: Other - Is a 62-year-old female insulin-dependent diabetic that presents for evaluation of generalized myalgias as well as some tightness related to her chest which she believes may be related to her underlying lung disease, she also endorses some generalized abdominal pain and fatigue. She says she has felt like this before in the past when she was anemic requiring transfusion because of ibuprofen which she took. She denies any fevers or chills. Denies any episodes of emesis. - Related Data Allergies/Adverse Reactions: No Known Drug Allergies Allergy (Mild, Verified 04/26/18 16:39) Past Medical History - General Information source: Patient - Social History Smoking Status: Current Every Day Smoker Family History: Hypertension, Other - Unknown she is adopted Patient has suicidal ideation: No Patient has homicidal ideation: No - Past Medical History Cardiac Medical History: Reports: Hx Hypertension Denies: Hx Congestive Heart Failure, Hx DVT, Hx Heart Attack, Hx Hypercholesterolemia, Hx Pulmonary Embolism Pulmonary Medical History: Reports: Hx Bronchitis, Hx COPD, Hx Pneumonia Denies: Hx Asthma Neurological Medical History: Reports: Hx Migraine. Denies: Hx Cerebrovascular Accident, Hx Seizures Endocrine Medical History: Reports: Hx Diabetes Mellitus Type 1. Denies: Hx Diabetes Mellitus Type 2, Hx Hyperthyroidism, Hx Hypothyroidism Renal/ Medical History: Denies: Hx Peritoneal Dialysis Malignancy Medical History: Reports: Hx Ovarian Cancer, Hx Skin Cancer GI Medical History: Reports: Hx Gastroesophageal Reflux Disease, Hx Hiatal Hernia, Hx Ulcer. Denies: Hx Cirrhosis, Hx Hepatitis, Hx Pancreatitis Musculoskeletal Medical History: Reports Hx Arthritis, Reports Hx Multiple Sclerosis, Reports Hx Musculoskeletal Deformity, Reports Hx Musculoskeletal Trauma Skin Medical History: Reports Hx Psoriasis Psychiatric Medical History: Reports: Hx Anxiety, Hx Depression - Traumatic Medical History: Reports: Hx Fractures - Bilateral humerus Infectious Medical History: Reports: Hx C-Diff. Denies: Hx Hepatitis Past Surgical History: Reports: Hx Genitourinary Surgery - Bladder, Hx Orthopedic Surgery - Right wrist, Hx Tubal Ligation, Other - cataract sx bilaterally.. Denies: Hx Hysterectomy, Hx Mastectomy, Hx Open Heart Surgery, Hx Pacemaker - Immunizations Immunizations up to date: Yes Hx Diphtheria, Pertussis, Tetanus Vaccination: Yes Hx Pneumococcal Vaccination: 06/15/13 Review of Systems - Review of Systems -: Yes All other systems reviewed and negative Physical Exam - Vital signs Vitals: Resp Pulse Ox 16 100 05/29/18 13:15 05/29/18 13:15 - General General appearance: Appears well In distress: None - HEENT Head: Normocephalic Eyes: Normal Conjunctiva: Normal Cornea: Normal Extraocular movements intact: Yes - Respiratory Respiratory status: No respiratory distress Chest status: Nontender Breath sounds: Normal Chest palpation: Normal - Cardiovascular Rhythm: Regular Heart sounds: Normal auscultation Murmur: No - Abdominal Inspection: Normal Distension: No distension Tenderness: Nontender Organomegaly: No organomegaly - Back Back: Normal - Extremities General upper extremity: Normal inspection, Nontender, Normal ROM, Normal strength General lower extremity: Normal inspection, Nontender, Normal ROM, Normal strength, Normal weight bearing - Neurological Neuro grossly intact: Yes Cognition: Normal Orientation: AAOx4 Keeler Coma Scale Eye Opening: Spontaneous Keeler Coma Scale Verbal: Oriented Keeler Coma Scale Motor: Obeys Commands Keeler Coma Scale Total: 15 Speech: Normal Cranial nerves: Normal Cerebellar coordination: Normal Motor strength normal: LUE, RUE, LLE, RLE - Psychological Associated symptoms: Normal affect Course - Re-evaluation Re-evalutation: 05/29/18 13:56 62-year-old female with multiple medical comorbidities presented for evaluation of multiple vague complaints including but not limited to chest tightness, muscle cramps, abdominal pain. This female however has a fairly nonspecific examination, as such we will initiate a broad workup including CBC CMP lipase chest x-ray troponin and EKG. We will plan for reassessment administration of fentanyl for her chronic pain. Patient to be given 4 units insulin IV. 05/29/18 15:10 On reassessment for this patient patient's abdomen continues to be tender, does have an elevated lactate and blood glucose. We will proceed with CT of the abdomen and pelvis. We will plan for repeat lactate administration of a liter of fluid at this time. 05/29/18 16:03 CT the abdomen and pelvis demonstrates a hiatal hernia. We will plan to recheck lactic acid. We will plan to obtain urinalysis via straight cath given patient's inability to produce an appropriate urinalysis. 05/29/18 16:44 On reassessment patient's urinalysis does demonstrate glucosuria, CT does not demonstrate any obvious abnormality. Spoke to patient about her current complaint, it is notable that she recently has had to decrease drastically her opiate dose at home for her chronic pain as a result of running low on medication. This may be a result of withdrawal symptoms as a result of decreasing her opiate dose substantially. Because of this lesion is in patient's best interest at this time likely to be discharged home with return precautions and a brief prescription until she is able to see her doctor this week. - Vital Signs Vital signs: Temp Pulse Resp BP Pulse Ox 98.3 F 14 94/53 L 96 05/29/18 13:20 05/29/18 16:01 05/29/18 16:01 05/29/18 16:01 - Laboratory Result Diagrams: 05/29/18 13:23 05/29/18 13:23 Laboratory results interpreted by me: 05/29/18 05/29/18 05/29/18 13:23 13:23 13:23 RDW 15.3 H Monocytes % (Manual) 15 H Sodium 134.0 L Creatinine 0.45 L Glucose 457 H* Lactic Acid 2.4 H AST 40 H Alkaline Phosphatase 145 H Total Protein 6.0 L Albumin 3.4 L Urine Glucose (UA) 05/29/18 15:49 RDW Monocytes % (Manual) Sodium Creatinine Glucose Lactic Acid AST Alkaline Phosphatase Total Protein Albumin Urine Glucose (UA) >=500 H Discharge - Discharge Clinical Impression: Hiatal hernia, Hyperglycemia Abdominal pain Qualifiers: Abdominal location: unspecified location Qualified Code(s): R10.9 - Unspecified abdominal pain Condition: Good Disposition: HOME, SELF-CARE Instructions: Abdominal Pain ([facility]), Antinausea Medication ([facility]) Prescriptions: Metoclopramide HCl [Metoclopramide HCl Odt] 5 mg PO Q8H 3 Days #6 tab.rapdis Referrals: GIUSEPPE WHITE MD [Primary Care Provider] - Follow up as needed
[2018-05-29 13:57] LABS: ALANINE AMINOTRANSFERASE 50 U/L (9-52); ALBUMIN 3.4 g/dL (3.5-5.0); ALKALINE PHOSPHATASE 145 U/L (38-126); ANION GAP 8 (5-19); ASPARTATE AMINO TRANSFERASE 40 U/L (14-36); BILIRUBIN,DIRECT 0.4 mg/dL (0.0-0.4); BILIRUBIN,TOTAL 0.4 mg/dL (0.2-1.3); BLOOD UREA NITROGEN 10 mg/dL (7-20); CALCIUM 8.9 mg/dL (8.4-10.2); CARBON DIOXIDE 22 mmol/L (22-30); CHLORIDE 104 mmol/L (98-107); LIPASE 95.5 U/L (23-300); POTASSIUM 4.1 mmol/L (3.6-5.0)
[2018-05-29 14:10] LABS: GLUCOSE 457 mg/dL (75-110)
[2018-05-29] MEDS ORDERED: NORMAL SALINE 1000 ML 1,000 ML IV ONE (14:12)
--- NOTE | 2018-05-29 14:22 | RADIOLOGY REPORT (SQ) ---
EXAM DESCRIPTION: CHEST 2 VIEWS COMPLETED DATE/TIME: 05/29/2018 1:49 pm REASON FOR STUDY: short of breath COMPARISON: 01/01/2018 EXAM PARAMETERS: NUMBER OF VIEWS: two views TECHNIQUE: Digital Frontal and Lateral radiographic views of the chest acquired. RADIATION DOSE: NA LIMITATIONS: none FINDINGS: LUNGS AND PLEURA: No opacities, masses or pneumothorax. No pleural effusion. MEDIASTINUM AND HILAR STRUCTURES: Large retrocardiac hiatal hernia. HEART AND VASCULAR STRUCTURES: Heart normal size. No evidence for failure. BONES: No acute findings. HARDWARE: None in the chest. OTHER: No other significant finding. IMPRESSION: NO ACUTE RADIOGRAPHIC FINDING IN THE CHEST. TECHNICAL DOCUMENTATION: JOB ID: [id number] [employer]- All Rights Reserved Reading location - IP/workstation name: [email or web address]
[2018-05-29 14:58] LABS: HEMATOCRIT 37.8 % (36.0-47.0); HEMOGLOBIN 12.6 g/dL (12.0-15.5); MEAN CORPUSCULAR HEMOGLOBIN 29.3 pg (27.0-33.4); MEAN CORPUSCULAR HGB CONC 33.4 g/dL (32.0-36.0); MEAN CORPUSCULAR VOLUME 88 fl (80-97); PLATELET COUNT 161 10^3/uL (150-450); RED BLOOD COUNT 4.31 10^6/uL (3.72-5.28); RED CELL DISTRIBUTION WIDTH 15.3 % (11.5-14.0); WHITE BLOOD COUNT 5.9 10^3/uL (4.0-10.5)
[2018-05-29 15:00] LABS: ABSOLUTE LYMPHOCYTES# (MANUAL) 1.2 10^3/uL (0.5-4.7); ABSOLUTE MONOCYTES # (MANUAL) 0.9 10^3/uL (0.1-1.4); ABSOLUTE NEUTROPHILS# (MANUAL) 3.6 10^3/uL (1.7-8.2); BASOPHILS % (MANUAL) 0 % (0-2); EOSINOPHILS % (MANUAL) 3 % (0-6); LYMPHOCYTES % (MANUAL) 20 % (13-45); MONOCYTES % (MANUAL) 15 % (3-13); PLATELET COMMENT ADEQUATE; SEGMENTED NEUTROPHILS % (MAN) 61 % (42-78); TOTAL CELLS COUNTED 100
[2018-05-29 15:01] LABS: ANISOCYTOSIS SLIGHT; TOXIC GRANULATION SLIGHT
--- NOTE | 2018-05-29 16:30 | RADIOLOGY REPORT (SQ) ---
EXAM DESCRIPTION: CT ABD/PELVIS WITH IV ONLY COMPLETED DATE/TIME: 05/29/2018 3:41 pm REASON FOR STUDY: concern for diverticular abcess COMPARISON: CT abdomen pelvis 01/22/2018, 03/09/2018, 03/17/2018, 04/21/2018, 04/26/2018 TECHNIQUE: CT scan of the abdomen and pelvis performed using helical scanning technique with dynamic intravenous contrast injection. No oral contrast. Images reviewed with lung, soft tissue, and bone windows. Reconstructed coronal and sagittal MPR images reviewed. Delayed images for evaluation of the urinary system also acquired. All images stored on PACS. All CT scanners at this facility use dose modulation, iterative reconstruction, and/or weight based d osing when appropriate to reduce radiation dose to as low as reasonably achievable (ALARA). [facility]: Dose Right [facility]: CareDose [facility]: Dose Right [facility]: Teradose 4D [facility]: [employer] CONTRAST TYPE AND DOSE: 64 mL of IV Omnipaque 350- low osmolar. RENAL FUNCTION: Creatinine 0.45 RADIATION DOSE: 11 mGy. LIMITATIONS: None. FINDINGS: LOWER CHEST: Lung bases are free of focal infiltrates. Large retrocardiac hiatal hernia c ontaining the stomach fundus. LIVER: Normal size. No masses. No dilated ducts. SPLEEN: Normal size. No focal lesions. PANCREAS: No masses. No significant calcifications. No adjacent inflammation or peripancreatic fluid collections. Pancreatic duct not dilated. GALLBLADDER: No identified stones by CT criteria. No inflammatory changes to suggest cholecystitis. ADRENAL GLANDS: No significant masses or asymmetry. RIGHT KIDNEY AND URETER: No solid masses. No significant calcifications. No hydronephrosis or hyd roureter. LEFT KIDNEY AND URETER: No solid masses. No significant calcifications. No hydronephrosis or hydr oureter. AORTA AND VESSELS: No aneurysm. No dissection. Renal arteries, SMA, celiac without stenosis. RETROPERITONEUM: No retroperitoneal adenopathy, hemorrhage or masses. BOWEL AND PERITONEAL CAVITY: No masses or inflammatory changes. No free fluid or peritoneal masses. There are prominent mesenteric vascular collaterals from the splenic hilum to the superior mesenteric vein, likely from mild portal hypertension APPENDIX: Normal. PELVIS: No mass. No free fluid. Normal bladder. ABDOMINAL WALL: No masses. No hernias. BONES: Stable vertebra plana deformity with retropulsion of bony fragments at L2. 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 OTHER: No other significant finding. IMPRESSION: No acute findings. No CT evidence of acute diverticulitis TECHNICAL DOCUMENTATION: JOB ID: [id number] Quality ID # [id number]: Final reports with documentation of one or more dose reduction techniques (e.g., Au tomated exposure control, adjustment of the mA and/or kV according to patient size, use of iterative reconstruction technique) 2010 [employer]- All Rights Reserved Reading location - IP/workstation name: [facility]
[2018-05-29 16:37] LABS: APPEARANCE,URINE CLEAR; BILIRUBIN,URINE NEGATIVE (NEGATIVE); COLOR,URINE YELLOW; GLUCOSE, URINE >=500 mg/dL (NEGATIVE); KETONES,URINE NEGATIVE (NEGATIVE); LEUKOCYTE ESTERASE,URINE NEGATIVE (NEGATIVE); NITRITE,URINE NEGATIVE (NEGATIVE); PROTEIN,URINE NEGATIVE (NEGATIVE); URINE SPECIFIC GRAVITY 1.023; UROBILINOGEN,URINE NEGATIVE mg/dL (<2.0)
[2018-05-29] MEDS ORDERED: HYDROCODONE/ACETAMINOPHEN 5-325 MG (6 TAB/ER DISP) PO PRN (16:47)
[2018-05-29 17:30] VITALS: BP 97/76
--- NOTE | 2018-05-29 23:59 | EKG REPORT ---
SEVERITY:- NORMAL ECG - SINUS RHYTHM : Confirmed by: Camille Frazier 29-May-2018 23:57:58
== END 2018-05-29 17:31 | disposition home or self-care (01) ==
LOC: ER 13:09
DX: E10.65 Type 1 diabetes mellitus with hyperglycemia (principal); K44.9 Diaphragmatic hernia without obstruction or gangrene; J44.9 Chronic obstructive pulmonary disease, unspecified; R07.89 Other chest pain; M79.1 Myalgia; R53.1 Weakness; R10.84 Generalized abdominal pain; R53.83 Other fatigue; R25.2 Cramp and spasm; G89.29 Other chronic pain; T40.606A Underdosing of unspecified narcotics, initial encounter; Z91.128 Patient's intentional underdosing of medication regimen for other reason; Z91.14 Patient's other noncompliance with medication regimen; Z79.891 Long term (current) use of opiate analgesic; F17.200 Nicotine dependence, unspecified, uncomplicated; I10 Essential (primary) hypertension; Z85.828 Personal history of other malignant neoplasm of skin; Z85.43 Personal history of malignant neoplasm of ovary
CPT/HCPCS: 93005; 96376; 99285; 96361; 51701; 96374; 36415; 82962; 83605; 83690; 85025; 80053; 81001; 84484; 71046; 74177; 93010; J3010; J1815

== ENCOUNTER 2018-06-29 15:13 | Inpatient (IN) | payer MEDICAID ==
[2018-06-29] MEDS ORDERED: FENTANYL CITRATE INJ/PF 100 MCG/2 ML AMPUL IV ONE ×2 (15:54→18:55)
[2018-06-29] MEDS ORDERED: ONDANSETRON 4 MG TAB.RAPDIS PO ONE (15:54)
[2018-06-29] MEDS ORDERED: NORMAL SALINE 1000 ML 1,000 ML IV ONE ×2 (15:57→17:17)
--- NOTE | 2018-06-29 15:57 | ER Document Report ---
ED Medical Screen (RME) - General Chief Complaint: High Blood Sugar Stated Complaint: BLOOD SUGAR ISSUE Time Seen by Provider: 06/29/18 15:48 Mode of Arrival: Ambulatory Information source: Patient Notes: 62-year-old female with a history of diabetes and COPD presents emergency department with diffuse abdominal pain. Pain is a diffuse cramping sensation. No alleviating or exacerbating factors. Patient states that it has been present for the last few days. She has had associated nausea and vomiting. Patient does have a history of C. difficile. The last time she had it was approximately a year ago. Patient states that she just received antibiotics about 3 weeks ago for pneumonia. She thinks now she has c. difficile again. Patient also notes that her blood sugar has been elevated the last few days. I have greeted and performed a rapid initial assessment of this patient. A comprehensive ED assessment and evaluation of the patient, analysis of test results and completion of the medical decision making process will be conducted by additional ED providers. PHYSICAL EXAMINATION: GENERAL: Well-appearing, well-nourished and in no acute distress. HEAD: Atraumatic, normocephalic. EYES: Pupils equal round extraocular movements intact, conjunctiva are normal. ENT: Nares patent NECK: Normal range of motion LUNGS: No respiratory distress Musculoskeletal: Normal range of motion NEUROLOGICAL: Normal speech, normal gait. PSYCH: Normal mood, normal affect. SKIN: Warm, Dry, normal turgor, no rashes or lesions noted. TRAVEL OUTSIDE OF THE [place] IN LAST 30 DAYS: No - Related Data Allergies/Adverse Reactions: No Known Drug Allergies Allergy (Mild, Verified 04/26/18 16:39) Past Medical History - Social History Chew tobacco use (# tins/day): No Frequency of alcohol use: None Drug Abuse: None Family history: None - pt adopted - Past Medical History Cardiac Medical History: Reports: Hx Hypertension Denies: Hx Congestive Heart Failure, Hx DVT, Hx Heart Attack, Hx Hypercholesterolemia, Hx Pulmonary Embolism Pulmonary Medical History: Reports: Hx Bronchitis, Hx COPD, Hx Pneumonia Denies: Hx Asthma Neurological Medical History: Reports: Hx Migraine. Denies: Hx Cerebrovascular Accident, Hx Seizures Endocrine Medical History: Reports: Hx Diabetes Mellitus Type 1. Denies: Hx Diabetes Mellitus Type 2, Hx Hyperthyroidism, Hx Hypothyroidism Renal/ Medical History: Denies: Hx Peritoneal Dialysis Malignancy Medical History: Reports: Hx Ovarian Cancer, Hx Skin Cancer GI Medical History: Reports: Hx Gastroesophageal Reflux Disease, Hx Hiatal Hernia, Hx Ulcer. Denies: Hx Cirrhosis, Hx Hepatitis, Hx Pancreatitis Musculoskeltal Medical History: Reports Hx Arthritis, Reports Hx Multiple Sclerosis, Reports Hx Musculoskeletal Deformity, Reports Hx Musculoskeletal Trauma Skin Medical History: Reports Hx Psoriasis Psychiatric Medical History: Reports: Hx Anxiety, Hx Depression - Traumatic Medical History: Reports: Hx Fractures - Bilateral humerus Infectious Medical History: Reports: Hx C-Diff. Denies: Hx Hepatitis Past Surgical History: Reports: Hx Genitourinary Surgery - Bladder, Hx Orthopedic Surgery - Right wrist, Hx Tubal Ligation, Other - cataract sx bilaterally.. Denies: Hx Hysterectomy, Hx Mastectomy, Hx Open Heart Surgery, Hx Pacemaker - Immunizations Immunizations up to date: Yes Hx Diphtheria, Pertussis, Tetanus Vaccination: Yes History of Influenza Vaccine for 06/2017 - 11/2017 Season: Yes Influenza Administration Date for 06/2017 - 11/2017 Season: 06/15/17 Physical Exam - Vital signs Vitals: Temp Pulse Resp BP Pulse Ox 97.3 F 125 H 20 128/79 H 98 06/29/18 15:23 06/29/18 15:23 06/29/18 15:23 06/29/18 15:23 06/29/18 15:23 Course - Vital Signs Vital signs: Temp Pulse Resp BP Pulse Ox 97.3 F 125 H 20 128/79 H 98 06/29/18 15:23 06/29/18 15:23 06/29/18 15:23 06/29/18 15:23 06/29/18 15:23 Doctor's Discharge - Discharge Referrals: GIUSEPPE WHITE MD [Primary Care Provider] - Follow up as needed
[2018-06-29 16:23] LABS: ABSOLUTE BASOPHILS # (AUTO) 0.2 10^3/uL (0.0-0.2); ABSOLUTE EOSINOPHILS # (AUTO) 0.2 10^3/uL (0.0-0.6); ABSOLUTE LYMPHOCYTES (AUTO) 1.7 10^3/uL (0.5-4.7); ABSOLUTE MONOCYTES (AUTO) 0.7 10^3/uL (0.1-1.4); ABSOLUTE NEUT (AUTO) 4.5 10^3/uL (1.7-8.2); BASOPHILS % (AUTO) 2.1 % (0-2); EOSINOPHILS % (AUTO) 2.4 % (0-6); HEMATOCRIT 42.4 % (36.0-47.0); HEMOGLOBIN 14.1 g/dL (12.0-15.5); LYMPHOCYTES % (AUTO) 23.3 % (13-45); MEAN CORPUSCULAR HEMOGLOBIN 29.9 pg (27.0-33.4); MEAN CORPUSCULAR HGB CONC 33.3 g/dL (32.0-36.0); MEAN CORPUSCULAR VOLUME 90 fl (80-97); MONOCYTES % (AUTO) 9.6 % (3-13); PLATELET COUNT 250 10^3/uL (150-450); RED BLOOD COUNT 4.73 10^6/uL (3.72-5.28); SEGMENTED NEUTROPHILS % (AUTO) 62.6 % (42-78); TOTAL CELLS COUNTED % (AUTO) 100 %; WHITE BLOOD COUNT 7.2 10^3/uL (4.0-10.5)
[2018-06-29 16:40] LABS: ALANINE AMINOTRANSFERASE 65 U/L (9-52); ALBUMIN 4.1 g/dL (3.5-5.0); ALKALINE PHOSPHATASE 165 U/L (38-126); ANION GAP 11 (5-19); ASPARTATE AMINO TRANSFERASE 54 U/L (14-36); BILIRUBIN,DIRECT 0.3 mg/dL (0.0-0.4); BILIRUBIN,TOTAL 0.6 mg/dL (0.2-1.3); BLOOD UREA NITROGEN 14 mg/dL (7-20); CALCIUM 9.2 mg/dL (8.4-10.2); CARBON DIOXIDE 24 mmol/L (22-30); CHLORIDE 100 mmol/L (98-107); POTASSIUM 4.1 mmol/L (3.6-5.0); SODIUM 135.4 mmol/L (137-145); TOTAL PROTEIN 7.2 g/dL (6.3-8.2)
--- NOTE | 2018-06-29 16:47 | RADIOLOGY REPORT (SQ) ---
EXAM DESCRIPTION: ACUTE ABDOMEN SERIES COMPLETED DATE/TIME: 06/29/2018 4:31 pm REASON FOR STUDY: diffuse abdominal pain COMPARISON: None. NUMBER OF VIEWS: Three views. TECHNIQUE: Frontal chest, supine abdomen and upright/decubitus abdomen radiographic images acquired. LIMITATIONS: None. FINDINGS: CHEST: Lungs clear of infiltrates. Large hiatal hernia is identified with a prominent air -fluid level P FREE AIR: None. No abnormal gas collections. BOWEL GAS PATTERN: Nonobstructive pattern. No dilated loops or air fluid levels. CALCIFICATIONS: No suspicious calcifications. HARDWARE: None in the abdomen. SOFT TISSUES: No gross mass or suggestion of organomegaly. BONES: No acute fracture. No worrisome bone lesions. OTHER: No other significant finding. IMPRESSION: NO RADIOGRAPHIC EVIDENCE FOR ACUTE ABDOMINAL DISEASE. Large hiatal hernia is identified with a prominent air-fluid level P TECHNICAL DOCUMENTATION: JOB ID: [id number] [employer]- All Rights Reserved Reading location - IP/workstation name: [email or web address]
[2018-06-29 16:48] LABS: GLUCOSE 541 mg/dL (75-110)
[2018-06-29] MEDS ORDERED: INSULIN REG, HUMAN 100 UNIT/ML 3 ML VIAL (PYX) IV ONE (17:16)
[2018-06-29] MEDS ORDERED: VANCOMYCIN HCL INJ 500 MG VIAL PO ONE (17:48)
[2018-06-29] MEDS ORDERED: ONDANSETRON HCL INJ/PF 4 MG/2 ML SDV IV ONE ×2 (18:55→23:51)
[2018-06-29 19:27] LABS: CREATINE KINASE MB 0.49 ng/mL (<4.55); NT PRO BNP 97 pg/mL (5-900)
[2018-06-29 19:28] LABS: TROPONIN I < 0.012 ng/mL
--- NOTE | 2018-06-29 19:30 | RADIOLOGY REPORT (SQ) ---
EXAM DESCRIPTION: CHEST SINGLE VIEW COMPLETED DATE/TIME: 06/29/2018 7:02 pm REASON FOR STUDY: cough COMPARISON: 05/29/2018 TECHNIQUE: Single frontal radiographic view of the chest acquired. NUMBER OF VIEWS: One view. LIMITATIONS: None. FINDINGS: LUNGS AND PLEURA: No pneumothorax. No consolidation or pleural effusion. MEDIASTINUM AND HILAR STRUCTURES: 10 cm hiatus hernia, slightly larger than the prior study. HEART AND VASCULAR STRUCTURES: Stable. BONES: No acute findings. HARDWARE: None in the chest. OTHER: No other significant finding. IMPRESSION: No consolidation or pleural effusion. 10 cm hiatus hernia, slightly larger than the p rior study. TECHNICAL DOCUMENTATION: JOB ID: [id number] [place]-72 2010 [employer]- All Rights Reserved Reading location - IP/workstation name: [email or web address]
[2018-06-29 22:20] LABS: AMORPHOUS SEDIMENT,URINE TRACE /HPF; APPEARANCE,URINE CLOUDY; BILIRUBIN,URINE NEGATIVE (NEGATIVE); CALCIUM OXALATE CRYSTALS,URINE TOO NUMEROUS TO CNT /HPF; COLOR,URINE YELLOW; GLUCOSE, URINE >=500 mg/dL (NEGATIVE); KETONES,URINE NEGATIVE (NEGATIVE); LEUKOCYTE ESTERASE,URINE TRACE (NEGATIVE); NITRITE,URINE POSITIVE (NEGATIVE); PROTEIN,URINE NEGATIVE (NEGATIVE); URINE SPECIFIC GRAVITY 1.026; UROBILINOGEN,URINE NEGATIVE mg/dL (<2.0)
--- NOTE | 2018-06-29 22:47 | RADIOLOGY REPORT (SQ) ---
EXAM DESCRIPTION: CT HEAD WITHOUT IV CONTRAST COMPLETED DATE/TME: 06/29/2018 18:38 CLINICAL HISTORY: 62 years, Female, Dizziness COMPARISON: EXAM DESCRIPTION: CLINICAL HISTORY: Dizziness COMPARISON: None Available TECHNIQUE: Contiguous axial CT images of the head were obtained. Coronal and sagittal reconstructions were created from the axial data. This exam was performed according to our departmental dose-optimization program, which includes automated exposure control, adjustment of the mA and/or kV according to patient size and/or use of iterative reconstruction technique. FINDINGS: There is no evidence of acute mass, mass effect, midline shift or hemorrhage. The ventricles and extra-axial CSF spaces are unremarkable. The brain parenchyma appears normal for the patient's age. No acute abnormalities of the bones is seen. IMPRESSION: No acute intracranial abnormality. TECHNIQUE: Images stored on PACS. All CT scanners at this facility use dose modulation, iterative reconstruction, and/or weight based dosing when appropriate to reduce radiation dose to as low as reasonably achievable (ALARA). [facility]: Dose Right [facility]: CareDose [facility]: Dose Right [facility]: Teradose 4D [facility]: [employer] LIMITATIONS: None. FINDINGS: IMPRESSION: TECHNICAL DOCUMENTATION: Quality ID # 436: Final reports with documentation of one or more dose reduction techniques (e.g., Automated exposure control, adjustment of the mA and/or kV according to patient size, use of iterative reconstruction technique) 2010 [employer]- All Rights Reserved
--- NOTE | 2018-06-29 22:52 | RADIOLOGY REPORT (SQ) ---
EXAM DESCRIPTION: CT ABDOMEN PELVIS WITH IV CONTRAST COMPLETED DATE/TME: 06/29/2018 18:36 CLINICAL HISTORY: 62 years, Female, abdominal pain COMPARISON: EXAM DESCRIPTION: CLINICAL HISTORY: abdominal pain COMPARISON: None Available TECHNIQUE: Contiguous axial images of the abdomen and pelvis were obtained after the administration of intravenous contrast followed by reconstruction images.This exam was performed according to our departmental dose-optimization program, which includes automated exposure control, adjustment of the mA and/or kV according to patient size and/or use of iterative reconstruction technique. FINDINGS: Gallbladder is collapsed and likely nonfasting. The majority of the stomach is above the diaphragm. Its wall is mildly thickened. There is a nonspecific apparent cystic lesion measuring approximately 13 mm at the anterior spleen. There is atrophy of the pancreas. No renal collecting system obstruction. There is marked collapse of the L2 vertebral body and moderate collapse of the T12 vertebral body. There is retropulsion of bone fragments into the central canal at each of these levels measuring up to 8 mm. There is no hydronephrosis. The gallbladder is otherwise unremarkable. Adrenal glands are within normal limits. Aorta is normal in caliber and tapering. No significant free fluid. No free air. No bowel obstruction. There is no stranding of the mesenteric fat. The appendix appears normal. No evidence of periappendiceal inflammation. IMPRESSION: The majority of the stomach is above the diaphragm. This could be a cause of pain. Mild thickening of the wall could reflect peristalsis or inflammation. Ischemia is also possible. TECHNIQUE: Images stored on PACS. All CT scanners at this facility use dose modulation, iterative reconstruction, and/or weight based dosing when appropriate to reduce radiation dose to as low as reasonably achievable (ALARA). [facility]: Dose Right [facility]: CareDose [facility]: Dose Right [facility]: Teradose 4D [facility]: [employer] LIMITATIONS: None. FINDINGS: IMPRESSION: TECHNICAL DOCUMENTATION: Quality ID # [id number]: Final reports with documentation of one or more dose reduction techniques (e.g., Automated exposure control, adjustment of the mA and/or kV according to patient size, use of iterative reconstruction technique) 2010 [employer]- All Rights Reserved
[2018-06-29] MEDS ORDERED: MORPHINE SULFATE 10 MG/ML INJ IV ONE (23:50)
[2018-06-29] MEDS ORDERED: CEFTRIAXONE 1 GM/D5W RTU 1 GM/50 ML RTUPB IV ONE (23:56)
[2018-06-30] MEDS ORDERED: IPRATROPIUM/ALBUTEROL 0.5-2.5 MG/3 ML AMPUL NEB PRN (01:31)
[2018-06-30] MEDS ORDERED: INSULIN LISPRO 100 UNIT/ML 3 ML VIAL SUBCUT PRN (01:31)
[2018-06-30] MEDS ORDERED: GLUCAGON,HUMAN RECOMB 1 MG INJ IM PRN ×2 (01:31→14:57)
[2018-06-30] MEDS ORDERED: DEXTROSE 50%-WATER 25 GM/50 ML DISP.SYRIN IV PRN ×4 (01:31→14:57)
[2018-06-30] MEDS ORDERED: ACETAMINOPHEN 325 MG TABLET PO PRN (01:31)
[2018-06-30] MEDS ORDERED: DEXTROSE 40% GEL 15 GM TUBE PO PRN ×4 (01:31→14:57)
--- NOTE | 2018-06-30 01:32 | ER Document Report ---
ED General - General Chief Complaint: High Blood Sugar Stated Complaint: BLOOD SUGAR ISSUE Time Seen by Provider: 06/29/18 15:48 Mode of Arrival: Ambulatory Information source: Patient Notes: Patient complained of diarrhea and abdominal pain. TRAVEL OUTSIDE OF THE [place] IN LAST 30 DAYS: No - HPI Onset: Just prior to arrival Onset/Duration: Sudden Quality of pain: Sharp Severity: Moderate Pain Level: 3 Associated symptoms: Diarrhea. denies: Chills, Fever Exacerbated by: Denies Relieved by: Denies Similar symptoms previously: Yes Recently seen / treated by doctor: No - Related Data Allergies/Adverse Reactions: No Known Drug Allergies Allergy (Mild, Verified 04/26/18 16:39) Past Medical History - General Information source: Patient - Social History Smoking Status: Former Smoker Chew tobacco use (# tins/day): No Frequency of alcohol use: None Drug Abuse: None Family History: Hypertension, Other - Unknown she is adopted Patient has suicidal ideation: No Patient has homicidal ideation: No - Past Medical History Cardiac Medical History: Reports: Hx Hypertension Denies: Hx Congestive Heart Failure, Hx DVT, Hx Heart Attack, Hx Hypercholesterolemia, Hx Pulmonary Embolism Pulmonary Medical History: Reports: Hx Bronchitis, Hx COPD, Hx Pneumonia Denies: Hx Asthma Neurological Medical History: Reports: Hx Migraine. Denies: Hx Cerebrovascular Accident, Hx Seizures Endocrine Medical History: Reports: Hx Diabetes Mellitus Type 1. Denies: Hx Diabetes Mellitus Type 2, Hx Hyperthyroidism, Hx Hypothyroidism Renal/ Medical History: Denies: Hx Peritoneal Dialysis Malignancy Medical History: Reports: Hx Ovarian Cancer, Hx Skin Cancer GI Medical History: Reports: Hx Gastroesophageal Reflux Disease, Hx Hiatal Hernia, Hx Ulcer. Denies: Hx Cirrhosis, Hx Hepatitis, Hx Pancreatitis Musculoskeletal Medical History: Reports Hx Arthritis, Reports Hx Multiple Sclerosis, Reports Hx Musculoskeletal Deformity, Reports Hx Musculoskeletal Trauma Skin Medical History: Reports Hx Psoriasis Psychiatric Medical History: Reports: Hx Anxiety, Hx Depression - Traumatic Medical History: Reports: Hx Fractures - Bilateral humerus Infectious Medical History: Reports: Hx C-Diff. Denies: Hx Hepatitis Past Surgical History: Reports: Hx Genitourinary Surgery - Bladder, Hx Orthopedic Surgery - Right wrist, Hx Tubal Ligation, Other - cataract sx bilaterally.. Denies: Hx Hysterectomy, Hx Mastectomy, Hx Open Heart Surgery, Hx Pacemaker - Immunizations Immunizations up to date: Yes Hx Diphtheria, Pertussis, Tetanus Vaccination: Yes Hx Pneumococcal Vaccination: 06/15/13 Review of Systems - Review of Systems Constitutional: No symptoms reported EENT: No symptoms reported Cardiovascular: No symptoms reported Respiratory: No symptoms reported Gastrointestinal: Abdominal pain, Diarrhea Genitourinary: No symptoms reported Female Genitourinary: No symptoms reported Musculoskeletal: No symptoms reported Skin: No symptoms reported Hematologic/Lymphatic: No symptoms reported Neurological/Psychological: No symptoms reported -: Yes All other systems reviewed and negative Physical Exam - Vital signs Vitals: Temp Pulse Resp BP Pulse Ox 97.3 F 125 H 20 128/79 H 98 06/29/18 15:23 06/29/18 15:23 06/29/18 15:23 06/29/18 15:23 06/29/18 15:23 Interpretation: Normal - General General appearance: Appears well, Alert - HEENT Head: Normocephalic, Atraumatic Eyes: Normal Pupils: PERRL - Respiratory Respiratory status: No respiratory distress Chest status: Nontender Breath sounds: Normal Chest palpation: Normal - Cardiovascular Rhythm: Regular Heart sounds: Normal auscultation Murmur: No - Abdominal Inspection: Normal Distension: No distension Bowel sounds: Normal Tenderness: Tender - Diffuse tenderness to palpation. Organomegaly: No organomegaly - Back Back: Normal, Nontender - Extremities General upper extremity: Normal inspection, Nontender, Normal color, Normal ROM , Normal temperature General lower extremity: Normal inspection, Nontender, Normal color, Normal ROM , Normal temperature, Normal weight bearing. No: Alecia's sign - Neurological Neuro grossly intact: Yes Cognition: Normal Orientation: AAOx4 [place] Coma Scale Eye Opening: Spontaneous Jose Roberto Coma Scale Verbal: Oriented [place] Coma Scale Motor: Obeys Commands Jose Roberto Coma Scale Total: 15 Speech: Normal Motor strength normal: LUE, RUE, LLE, RLE Sensory: Normal - Psychological Associated symptoms: Normal affect, Normal mood - Skin Skin Temperature: Warm Skin Moisture: Dry Skin Color: Normal Course - Vital Signs Vital signs: Temp Pulse Resp BP Pulse Ox 97.9 F 75 18 126/78 H 94 06/30/18 02:39 06/30/18 02:39 06/30/18 02:39 06/30/18 02:39 06/30/18 01:00 - Laboratory Result Diagrams: 06/29/18 16:11 06/29/18 16:11 Laboratory results interpreted by me: 06/29/18 06/29/18 06/29/18 16:11 16:11 16:11 RDW 15.0 H Basophils % 2.1 H Sodium 135.4 L Glucose 541 H* POC Glucose AST 54 H ALT 65 H Alkaline Phosphatase 165 H Creatine Kinase < 20 L Urine Glucose (UA) Urine Nitrite Ur Leukocyte Esterase 06/29/18 06/29/18 18:17 19:35 RDW Basophils % Sodium Glucose POC Glucose 384 H AST ALT Alkaline Phosphatase Creatine Kinase Urine Glucose (UA) >=500 H Urine Nitrite POSITIVE H Ur Leukocyte Esterase TRACE H - Diagnostic Test Radiology reviewed: Image reviewed, Reports reviewed - EKG Interpretation by Me EKG shows normal: Sinus rhythm Rate: Normal - 86 Rhythm: NSR P Waves: LAE When compared to previous EKG there are: Changes noted Additional EKG results interpreted by me: 06/30/18 02:07 No STEMI. - Transfer of Care Care transferred to following provider: Patient admitted by the hospitalist Dr. Wesley Villela. Notes: 06/30/18 03:18 C. difficile diarrhea. Uncontrolled diabetes. Abdominal pain. Critical Care Note - Critical Care Note Total time excluding time spent on procedures (mins): 35 Discharge - Discharge Clinical Impression: C. difficile colitis, Abdominal pain, acute, Hyperosmolar non-ketotic state in patient with type 2 diabetes mellitus, Hyperglycemia UTI (urinary tract infection) Qualifiers: Urinary tract infection type: acute cystitis Hematuria presence: without hematuria Qualified Code(s): N30.00 - Acute cystitis without hematuria Diarrhea Qualifiers: Diarrhea type: infectious Qualified Code(s): A09 - Infectious gastroenteritis and colitis, unspecified Condition: Stable Disposition: ADMITTED INPATIENT Admitting Provider: Hospitalist Unit Admitted: Telemetry
[2018-06-30] MEDS ORDERED: VANCOMYCIN HCL INJ 500 MG VIAL PO ONE (02:00)
[2018-06-30] MEDS: NORMAL SALINE 1000 ML 1,000 ML IV PRN ×2 (03:02→10:48)
[2018-06-30] MEDS ORDERED: VANCOMYCIN HCL INJ 500 MG VIAL ONE (06:00)
[2018-06-30] MEDS: VANCOMYCIN HCL INJ 500 MG VIAL PO SCH ×2 (06:40→14:39)
[2018-06-30] MEDS: HEPARIN SOD (PORCINE) 5,000 UNIT/ML 1 ML SYRINGE SUBCUT SCH ×2 (06:40→14:39)
--- NOTE | 2018-06-30 07:23 | PDOC H&P ---
History of Present Illness Admission Date/PCP: 06/30/18 01:40 GIUSEPPE WHITE MD Patient complains of: Abdominal pain History of Present Illness: JAMES MORRIS is a 62 year old female with a past medical history of COPD, tobacco dependence, chronic bronchitis, chronic pain, anxiety, opiate and benzodiazepine dependence, diabetes with recurrent DKA and recurrent C. difficile colitis. She presents with 24 hours of abdominal pain diarrhea. In the emergency room she is found to have C. difficile positive stool. Started on p.o. vancomycin and referred to the hospitalist for admission. Patient denies recent antibiotic use. Past Medical History Cardiac Medical History: Reports: Hypertension Denies: Congestive Heart Failure, DVT, Myocardial Infarction, Hyperlipidema, Pulmonary Embolism Pulmonary Medical History: Reports: Bronchitis, Chronic Obstructive Pulmonary Disease (COPD), Pneumonia Denies: Asthma Neurological Medical History: Reports: Migraine Denies: Seizures Endocrine Medical History: Reports: Diabetes Mellitus Type 1 Denies: Diabetes Mellitus Type 2, Hyperthyroidism, Hypothyroidism Malignancy Medical History: Reports: Ovarian Cancer, Skin Cancer GI Medical History: Reports: Gastroesophageal Reflux Disease, Hiatal Hernia Denies: Cirrhosis, Hepatitis Musculoskeltal Medical History: Reports: Arthritis Skin Medical History: Reports: Psoriasis Psychiatric Medical History: Reports: Depression - Hematology: Reports: Anemia Denies: Hemophilia, Sickle Cell Disease Infectious Medical History: Reports: Clostridium Difficile Past Surgical History Past Surgical History: Reports: Orthopedic Surgery - Right wrist, Tubal Ligation , Other - cataract sx bilaterally. Denies: Amputation, Hysterectomy, Mastectomy, Pacemaker Social History Information Source: Patient Smoking Status: Former Smoker Last Time Smoked: 2 wks ago Frequency of Alcohol Use: None Hx Recreational Drug Use: No Drugs: None Hx Prescription Drug Abuse: No - Advance Directive Resuscitation Status: Full Code Family History Family History: Hypertension, Other - Unknown she is adopted Parental Family History Reviewed: Yes Children Family History Reviewed: Yes Sibling(s) Family History Reviewed.: Yes Medication/Allergy Home Medications: Alprazolam [Xanax] 1 mg PO Q8 05/13/18 Gabapentin [Neurontin 300 mg Capsule] 300 mg PO Q8 05/13/18 Hydrocodone/Acetaminophen [Hydrocodone-Acetamin 10-325 mg] 1 each PO QIDP PRN Zolpidem Tartrate [Ambien] 10 mg PO QHS 05/13/18 Acetaminophen [Tylenol 325 mg Tablet] 650 mg PO Q4HP PRN tablet 05/15/18 Buspirone HCl [Buspar 10 mg Tablet] 5 mg PO QAM #15 tablet 05/15/18 Buspirone HCl [Buspar 10 mg Tablet] 10 mg PO QHS #30 tablet 05/15/18 Cholestyramine/Aspartame [Questran Light 4 gm Packet] 4 gm PO MEALSHS packet Dicyclomine HCl [Bentyl 20 mg Tablet] 20 mg PO Q6HP PRN #120 tablet 05/15/18 Insulin Glargine,Hum.rec.anlog [Lantus Solostar] 45 unit SQ Q12 #1 insuln.pen Insulin Lispro [Humalog Insulin (Lispro) 100 unit/mL] 0 - 12 unit SUBCUT ACHSP PRN #1 vial 05/15/18 Ipratropium/Albuterol Sulfate [Combivent Respimat 4 gm Mdi] 1 puff IH RTQ6 aer.w.adap 05/15/18 Nicotine [Nicoderm 21 mg/24 Hr Transderm Patch] 1 each TD DAILY #30 patch.td24 05/15/18 Trazodone HCl [Desyrel 50 mg Tablet] 25 mg PO Q12 #60 tablet 05/15/18 Metoclopramide HCl [Metoclopramide HCl Odt] 5 mg PO Q8H 3 Days #6 tab.rapdis Allergies/Adverse Reactions: No Known Drug Allergies Allergy (Mild, Verified 04/26/18 16:39) Review of Systems Constitutional: PRESENT: as per HPI, anorexia, fatigue, weight loss Eyes: PRESENT: as per HPI Ears: ABSENT: hearing changes Cardiovascular: ABSENT: chest pain, dyspnea on exertion, edema, orthropnea, palpitations Respiratory: ABSENT: cough, hemoptysis Gastrointestinal: PRESENT: as per HPI, abdominal pain, nausea. ABSENT: constipation, diarrhea, hematemesis, hematochezia, vomiting Genitourinary: ABSENT: dysuria, hematuria Musculoskeletal: ABSENT: joint swelling Integumentary: ABSENT: rash, wounds Neurological: ABSENT: abnormal gait, abnormal speech, confusion, dizziness, focal weakness, syncope Psychiatric: ABSENT: anxiety, depression, homidical ideation, suicidal ideation Endocrine: ABSENT: cold intolerance, heat intolerance, polydipsia, polyuria Hematologic/Lymphatic: ABSENT: easy bleeding, easy bruising Physical Exam Vital Signs: Temp Pulse Resp BP Pulse Ox 97.9 F 75 18 126/78 H 94 06/30/18 02:39 06/30/18 02:39 06/30/18 02:39 06/30/18 02:39 06/30/18 02:00 Intake & Output 06/28/18 06/29/18 06/30/18 11:59 11:59 11:59 Weight 54.7 kg General appearance: PRESENT: cooperative, mild distress. ABSENT: disheveled, hard of hearing Head exam: PRESENT: atraumatic, normocephalic Eye exam: PRESENT: conjunctiva pink, EOMI, PERRLA. ABSENT: scleral icterus Ear exam: PRESENT: normal external ear exam Mouth exam: PRESENT: moist, tongue midline Neck exam: ABSENT: carotid bruit, JVD, lymphadenopathy, thyromegaly Respiratory exam: PRESENT: clear to auscultation megan. ABSENT: rales, rhonchi, wheezes Cardiovascular exam: PRESENT: RRR. ABSENT: diastolic murmur, rubs, systolic murmur Pulses: PRESENT: normal dorsalis pedis pul Vascular exam: PRESENT: normal capillary refill GI/Abdominal exam: PRESENT: hyperactive bowel sounds, soft, tenderness. ABSENT : ascites, diminished bowel sounds, distended, firm, guarding Rectal exam: PRESENT: deferred Extremities exam: PRESENT: full ROM. ABSENT: calf tenderness, clubbing, pedal edema Neurological exam: PRESENT: alert, awake, oriented to person, oriented to place , oriented to time, oriented to situation, CN II-XII grossly intact. ABSENT: motor sensory deficit Psychiatric exam: PRESENT: appropriate affect, normal mood. ABSENT: homicidal ideation, suicidal ideation Skin exam: PRESENT: dry, intact, warm. ABSENT: cyanosis, rash Results Impressions: Acute Abdomen Series 06/29/18 15:53 IMPRESSION: NO RADIOGRAPHIC EVIDENCE FOR ACUTE ABDOMINAL DISEASE. Large hiatal hernia is identified with a prominent air-fluid level P Abdomen/Pelvis CT 06/29/18 18:36 IMPRESSION: The majority of the stomach is above the diaphragm. This could be a cause of pain. Mild thickening of the wall could reflect peristalsis or inflammation. Ischemia is also possible. TECHNIQUE: Images stored on PACS. All CT scanners at this facility use dose modulation, iterative reconstruction, and/or weight based dosing when appropriate to reduce radiation dose to as low as reasonably achievable (ALARA). [facility]: Dose Right [facility]: CareDose [facility]: Dose Right [facility]: Teradose 4D [facility]: [employer] LIMITATIONS: None. FINDINGS: IMPRESSION: TECHNICAL DOCUMENTATION: Quality ID # 436: Final reports with documentation of one or more dose reduction techniques (e.g., Automated exposure control, adjustment of the mA and/or kV according to patient size, use of iterative reconstruction technique) 2010 [employer]- All Rights Reserved Chest X-Ray 06/29/18 18:37 IMPRESSION: No consolidation or pleural effusion. 10 cm hiatus hernia, slightly larger than the prior study. Head CT 06/29/18 18:38 IMPRESSION: No acute intracranial abnormality. TECHNIQUE: Images stored on PACS. All CT scanners at this facility use dose modulation, iterative reconstruction, and/or weight based dosing when appropriate to reduce radiation dose to as low as reasonably achievable (ALARA). [facility]: [facility] Right [facility]: CareDose [facility]: Dose Right [facility]: Teradose 4D [facility]: [employer] LIMITATIONS: None. FINDINGS: IMPRESSION: TECHNICAL DOCUMENTATION: Quality ID # 436: Final reports with documentation of one or more dose reduction techniques (e.g., Automated exposure control, adjustment of the mA and/or kV according to patient size, use of iterative reconstruction technique) 2010 [employer]- All Rights Reserved Assessment & Plan - Diagnosis (1) C. difficile colitis Is this a current diagnosis for this admission?: Yes Plan: Recurrent C. difficile infection, GI consult for consideration of fecal transplant, otherwise p.o. vancomycin every 6 hours, symptomatic management. Follow-up CBC and chemistry (2) Abdominal pain, acute Is this a current diagnosis for this admission?: Yes Plan: Secondary to #1, symptomatic management (3) Anxiety Is this a current diagnosis for this admission?: Yes Plan: Limit benzodiazepine given high risk of respiratory depression with severe COPD at baseline. - Time Time Spent: 50 to 70 Minutes - Inpatient Certification Medical Necessity: Need Close Monitoring Due to Risk of Patient Decompensation
--- NOTE | 2018-06-30 08:04 | EKG REPORT ---
SEVERITY:- BORDERLINE ECG - SINUS RHYTHM PROBABLE LEFT ATRIAL ABNORMALITY POOR R WAVE PROGRESSION ANT LEADS DUE TO LEAD PLACEMENT, CLINICAL CORRELATION NEEDED. : Confirmed by: Luis Alberto Walls MD 30-Jun-2018 08:03:18
[2018-06-30] MEDS ORDERED: NICOTINE 21 MG/24 HR PATCH.TD24 TD SCH (10:00)
[2018-06-30 14:26] VITALS: BP 104/65
[2018-06-30] MEDS ORDERED: ALPRAZOLAM 0.5 MG TABLET PO PRN (14:52)
[2018-06-30] MEDS ORDERED: IPRATROPIUM/ALBUTEROL 120 PUFF/4 GM MDI IH PRN (14:52)
[2018-06-30] MEDS ORDERED: DICYCLOMINE HCL 10 MG CAPSULE PO PRN (14:52)
[2018-06-30] MEDS ORDERED: HYDROCODONE/ACETAMINOPHEN 10-325 MG TABLET PO PRN (14:58)
--- NOTE | 2018-06-30 18:12 | PDOC DISCHARGE SUMMARY ---
General - Admit/Disc Date/PCP Admission Date/Primary Care Provider: 06/30/18 01:40 GIUSEPPE WHITE MD Discharge Date: 06/30/18 - Patient left AMA. - Discharge Diagnosis (1) Abdominal pain, acute Is this a current diagnosis for this admission?: Yes (2) Anxiety Is this a current diagnosis for this admission?: No (3) C. difficile colitis Is this a current diagnosis for this admission?: Yes (4) Diabetes mellitus Is this a current diagnosis for this admission?: Yes - Additional Information Resuscitation Status: Full Code Home Medications: Alprazolam [Xanax] 1 mg PO QID 06/30/18 Buspirone HCl [Buspar 10 mg Tablet] 5 mg PO QAM 06/30/18 Buspirone HCl [Buspar 10 mg Tablet] 10 mg PO HSP PRN 06/30/18 Dicyclomine HCl [Bentyl 20 mg Tablet] 20 mg PO Q6HP PRN 06/30/18 Etanercept [Enbrel] 50 mg SQ .WEEKLY 06/30/18 Gabapentin [Neurontin 300 mg Capsule] 300 mg PO Q8 06/30/18 Hydrocodone/Acetaminophen [[place] 10-325 mg Tablet] 1 tab PO QID 06/30/18 Insulin Glargine,Hum.rec.anlog [Lantus Solostar] 45 unit SQ TID 06/30/18 Insulin Lispro [Humalog Insulin 100 Unit/1 ml 3 ml Vial] 0 unit SUBCUT .SLD SCALE 06/30/18 Pregabalin [Lyrica 75 mg Capsule] 75 mg PO Q12 06/30/18 Trazodone HCl [Desyrel 50 mg Tablet] 25 mg PO Q12 06/30/18 Zolpidem Tartrate [Ambien] 10 mg PO HSP PRN 06/30/18 History of Present Illness Patient complains of: Abdominal pain and diarrhea. History of Present Illness: JAMES MORRIS is a 62 year old female with a past medical history of COPD, tobacco dependence, chronic bronchitis, chronic pain, anxiety, opiate and benzodiazepine dependence, diabetes with recurrent DKA and recurrent C. difficile colitis. She presents with 24 hours of abdominal pain diarrhea. In the emergency room she is found to have C. difficile positive stool. Started on p.o. vancomycin and referred to the hospitalist for admission. Patient denies recent antibiotic use. Hospital Course Hospital Course: (1) C. difficile colitis Patient was started on vancomycin every 6 hours unfortunately he left AMA. (2) Abdominal pain, acute Secondary to #1. Patient left AMA (3) Anxiety Patient left AMA. Physical Exam Vital Signs: Temp Pulse Resp BP Pulse Ox 98.3 F 82 14 104/65 96 06/30/18 09:02 06/30/18 09:10 06/30/18 09:10 06/30/18 09:02 06/30/18 09:10 Intake & Output 06/29/18 06/30/18 07/01/18 06:59 06:59 06:59 Intake Total 1000 Balance 1000 Weight 54.7 kg Results Impressions: Acute Abdomen Series 06/29/18 15:53 IMPRESSION: NO RADIOGRAPHIC EVIDENCE FOR ACUTE ABDOMINAL DISEASE. Large hiatal hernia is identified with a prominent air-fluid level P Abdomen/Pelvis CT 06/29/18 18:36 IMPRESSION: The majority of the stomach is above the diaphragm. This could be a cause of pain. Mild thickening of the wall could reflect peristalsis or inflammation. Ischemia is also possible. TECHNIQUE: Images stored on PACS. All CT scanners at this facility use dose modulation, iterative reconstruction, and/or weight based dosing when appropriate to reduce radiation dose to as low as reasonably achievable (ALARA). [facility]: Dose Right [facility]: CareDose [facility]: Dose Right [facility]: [place] 4D [place]: [employer] LIMITATIONS: None. FINDINGS: IMPRESSION: TECHNICAL DOCUMENTATION: Quality ID # 436: Final reports with documentation of one or more dose reduction techniques (e.g., Automated exposure control, adjustment of the mA and/or kV according to patient size, use of iterative reconstruction technique) 2010 [employer]- All Rights Reserved Chest X-Ray 06/29/18 18:37 IMPRESSION: No consolidation or pleural effusion. 10 cm hiatus hernia, slightly larger than the prior study. Head CT 06/29/18 18:38 IMPRESSION: No acute intracranial abnormality. TECHNIQUE: Images stored on PACS. All CT scanners at this facility use dose modulation, iterative reconstruction, and/or weight based dosing when appropriate to reduce radiation dose to as low as reasonably achievable (ALARA). [facility]: Dose Right [facility]: CareDose [facility]: Dose Right [facility]: Teradose 4D [facility]: [employer] LIMITATIONS: None. FINDINGS: IMPRESSION: TECHNICAL DOCUMENTATION: Quality ID # 436: Final reports with documentation of one or more dose reduction techniques (e.g., Automated exposure control, adjustment of the mA and/or kV according to patient size, use of iterative reconstruction technique) 2010 [employer]- All Rights Reserved Qualifiers - * PATIENT BEING DISCHARGED WITH ANY OF THE FOLLOWING DIAGNOSIS: No
[2018-06-30] MEDS ORDERED: BUSPIRONE HCL 10 MG TABLET PO SCH ×2 (22:00)
[2018-06-30] MEDS ORDERED: INSULIN GLARGINE,HUM.REC.ANLOG 1,000 UNIT/10 ML UNIT SUBCUT SCH (22:00)
[2018-06-30] MEDS ORDERED: ZOLPIDEM TARTRATE 5 MG TABLET PO SCH (22:00)
[2018-06-30] MEDS ORDERED: TRAZODONE HCL 50 MG TABLET PO SCH (22:00)
[2018-06-30] MEDS ORDERED: GABAPENTIN 300 MG CAPSULE PO SCH (22:00)
[2018-07-01] MEDS ORDERED: BUSPIRONE HCL 10 MG TABLET PO SCH (08:00)
[2018-07-01] MEDS ORDERED: NICOTINE 14 MG/24 HR PATCH.TD24 TD SCH (10:00)
== END 2018-06-30 15:00 | disposition left against medical advice (07) | DRG 372 ==
LOC: ER 15:13 → EH 06-30 01:40 → 4N 06-30 02:30
PROVIDERS: ADMIT Internal Medicine; ATTEND Internal Medicine
DX: A04.71 Enterocolitis due to Clostridium difficile, recurrent (principal); F13.20 Sedative, hypnotic or anxiolytic dependence, uncomplicated; F11.20 Opioid dependence, uncomplicated; N39.0 Urinary tract infection, site not specified; J44.9 Chronic obstructive pulmonary disease, unspecified; F41.9 Anxiety disorder, unspecified; G89.29 Other chronic pain; E10.9 Type 1 diabetes mellitus without complications; E10.65 Type 1 diabetes mellitus with hyperglycemia; G35 Multiple sclerosis; L40.9 Psoriasis, unspecified; I10 Essential (primary) hypertension; K21.9 Gastro-esophageal reflux disease without esophagitis; K44.9 Diaphragmatic hernia without obstruction or gangrene; G43.909 Migraine, unspecified, not intractable, without status migrainosus; D64.9 Anemia, unspecified; Z98.51 Tubal ligation status; Z79.4 Long term (current) use of insulin; Z79.899 Other long term (current) drug therapy; Z85.43 Personal history of malignant neoplasm of ovary; Z85.828 Personal history of other malignant neoplasm of skin; Z87.891 Personal history of nicotine dependence
CPT/HCPCS: 36415; 70450; 71045; 74022; 74177; 80053; 81001; 82550; 82553; 82962; 83690; 83880; 84484; 85025; 87086; 87493; 93005; 93010; 96361; 96365; 96375; 96376; 99291; J0696; J1644; J1815; J2270; J2405; J3010; J3370; J7030; S0119

== ENCOUNTER 2018-07-01 19:21 | Emergency (ER) | payer MEDICAID ==
[2018-07-01] MEDS ORDERED: NORMAL SALINE 1000 ML 1,000 ML IV ONE (19:53)
[2018-07-01] MEDS ORDERED: ONDANSETRON HCL INJ/PF 4 MG/2 ML SDV IV ONE (20:07)
[2018-07-01] MEDS ORDERED: MORPHINE SULFATE 10 MG/ML INJ IV ONE (20:07)
[2018-07-01] MEDS ORDERED: METRONIDAZOLE 500 MG TABLET PO ONE (20:12)
[2018-07-01 20:34] LABS: ABSOLUTE EOSINOPHILS # (AUTO) 0.1 10^3/uL (0.0-0.6); ABSOLUTE LYMPHOCYTES (AUTO) 1.2 10^3/uL (0.5-4.7); ABSOLUTE MONOCYTES (AUTO) 0.4 10^3/uL (0.1-1.4); ABSOLUTE NEUT (AUTO) 2.7 10^3/uL (1.7-8.2); BASOPHILS % (AUTO) 1.1 % (0-2); HEMATOCRIT 35.5 % (36.0-47.0); LYMPHOCYTES % (AUTO) 26.6 % (13-45); MEAN CORPUSCULAR HEMOGLOBIN 29.4 pg (27.0-33.4); MEAN CORPUSCULAR HGB CONC 33.1 g/dL (32.0-36.0); MEAN CORPUSCULAR VOLUME 89 fl (80-97); MONOCYTES % (AUTO) 9.6 % (3-13); PLATELET COUNT 145 10^3/uL (150-450); RED CELL DISTRIBUTION WIDTH 14.5 % (11.5-14.0); SEGMENTED NEUTROPHILS % (AUTO) 59.7 % (42-78); TOTAL CELLS COUNTED % (AUTO) 100 %; WHITE BLOOD COUNT 4.5 10^3/uL (4.0-10.5)
[2018-07-01 20:37] LABS: HEMOGLOBIN 11.8 g/dL (12.0-15.5)
[2018-07-01 20:46] LABS: ALANINE AMINOTRANSFERASE 52 U/L (9-52); ALBUMIN 3.3 g/dL (3.5-5.0); ALKALINE PHOSPHATASE 139 U/L (38-126); ANION GAP 10 (5-19); ASPARTATE AMINO TRANSFERASE 26 U/L (14-36); BILIRUBIN,DIRECT 0.1 mg/dL (0.0-0.4); BILIRUBIN,TOTAL 0.3 mg/dL (0.2-1.3); BLOOD UREA NITROGEN 11 mg/dL (7-20); CALCIUM 8.9 mg/dL (8.4-10.2); CARBON DIOXIDE 19 mmol/L (22-30); CHLORIDE 110 mmol/L (98-107); GLUCOSE 377 mg/dL (75-110); LIPASE 41.6 U/L (23-300); POTASSIUM 3.4 mmol/L (3.6-5.0); SODIUM 138.5 mmol/L (137-145); TOTAL PROTEIN 6.1 g/dL (6.3-8.2)
--- NOTE | 2018-07-01 20:52 | RADIOLOGY REPORT (SQ) ---
EXAM DESCRIPTION: KUB/ABDOMEN (SINGLE VIEW) COMPLETED DATE/TIME: 07/01/2018 8:31 pm REASON FOR STUDY: Diarrhea COMPARISON: None. NUMBER OF VIEWS: One view. TECHNIQUE: Supine radiographic image of the abdomen acquired. LIMITATIONS: None. FINDINGS: BOWEL GAS PATTERN: Normal bowel gas pattern. No dilated loops. CALCIFICATIONS: No suspicious calcifications. SOFT TISSUES: No gross mass or suggestion of organomegaly. HARDWARE: None in the abdomen. BONES: No acute fracture. No worrisome bone lesions. OTHER: No other significant finding. IMPRESSION: NO RADIOGRAPHIC EVIDENCE FOR ACUTE ABDOMINAL DISEASE. TECHNICAL DOCUMENTATION: JOB ID: [id number] [employer]- All Rights Reserved Reading location - IP/workstation name: [email or web address]
[2018-07-01 22:00] LABS: APPEARANCE,URINE CLEAR; BILIRUBIN,URINE NEGATIVE (NEGATIVE); COLOR,URINE STRAW; GLUCOSE, URINE >=500 mg/dL (NEGATIVE); KETONES,URINE NEGATIVE (NEGATIVE); LEUKOCYTE ESTERASE,URINE TRACE (NEGATIVE); NITRITE,URINE NEGATIVE (NEGATIVE); PROTEIN,URINE NEGATIVE (NEGATIVE); URINE SPECIFIC GRAVITY 1.017; UROBILINOGEN,URINE NEGATIVE mg/dL (<2.0)
[2018-07-01 22:05] VITALS: BP 144/82
--- NOTE | 2018-07-01 22:48 | ER Document Report ---
ED GI/ - General Chief Complaint: Diarrhea Stated Complaint: DIARRHEA/RECTAL BLEEDING Time Seen by Provider: 07/01/18 19:52 Mode of Arrival: Ambulatory Information source: Patient Notes: Patient is brought in the ED complaining of diarrhea C. difficile. Patient is C. difficile positive and was admitted to the hospital 2 days ago. She left AGAINST MEDICAL ADVICE. TRAVEL OUTSIDE OF THE [place] IN LAST 30 DAYS: No - HPI Patient complains to provider of: Diarrhea Timing/Duration: Gradual, Constant Quality of pain: Cramping Severity at maximum: Moderate Severity in ED: Moderate Pain Level: 2 Vaginal bleeding (Compared to normal period): None OB ultrasound done: No vitamins taken: No Sexual history: Inactive Associated symptoms: Blood in stool Exacerbated by: Denies Relieved by: Denies Similar symptoms previously: Yes Recently seen / treated by doctor: Yes - Related Data Allergies/Adverse Reactions: No Known Drug Allergies Allergy (Mild, Verified 04/26/18 16:39) Past Medical History - Social History Smoking Status: Smoker,Current Status Unk Chew tobacco use (# tins/day): No Drug Abuse: None Family History: Hypertension, Other - Unknown she is adopted Patient has suicidal ideation: No Patient has homicidal ideation: No - Past Medical History Cardiac Medical History: Reports: Hx Hypertension Denies: Hx Congestive Heart Failure, Hx DVT, Hx Heart Attack, Hx Hypercholesterolemia, Hx Pulmonary Embolism Pulmonary Medical History: Reports: Hx Bronchitis, Hx COPD, Hx Pneumonia Denies: Hx Asthma Neurological Medical History: Reports: Hx Migraine. Denies: Hx Cerebrovascular Accident, Hx Seizures Endocrine Medical History: Reports: Hx Diabetes Mellitus Type 1. Denies: Hx Diabetes Mellitus Type 2, Hx Hyperthyroidism, Hx Hypothyroidism Renal/ Medical History: Denies: Hx Peritoneal Dialysis Malignancy Medical History: Reports: Hx Ovarian Cancer, Hx Skin Cancer GI Medical History: Reports: Hx Gastroesophageal Reflux Disease, Hx Hiatal Hernia, Hx Ulcer. Denies: Hx Cirrhosis, Hx Hepatitis, Hx Pancreatitis Musculoskeletal Medical History: Reports Hx Arthritis, Reports Hx Multiple Sclerosis, Reports Hx Musculoskeletal Deformity, Reports Hx Musculoskeletal Trauma Skin Medical History: Reports Hx Psoriasis Psychiatric Medical History: Reports: Hx Anxiety, Hx Depression - Traumatic Medical History: Reports: Hx Fractures - Bilateral humerus Infectious Medical History: Reports: Hx C-Diff. Denies: Hx Hepatitis Past Surgical History: Reports: Hx Genitourinary Surgery - Bladder, Hx Orthopedic Surgery - Right wrist, Hx Tubal Ligation, Other - cataract sx bilaterally.. Denies: Hx Hysterectomy, Hx Mastectomy, Hx Open Heart Surgery, Hx Pacemaker - Immunizations Immunizations up to date: Yes Hx Diphtheria, Pertussis, Tetanus Vaccination: Yes Hx Pneumococcal Vaccination: 06/15/13 Review of Systems - Review of Systems Constitutional: No symptoms reported EENT: No symptoms reported Cardiovascular: No symptoms reported Respiratory: No symptoms reported Gastrointestinal: Abdominal pain, Diarrhea, Other - Blood in stool Genitourinary: No symptoms reported Female Genitourinary: No symptoms reported Musculoskeletal: No symptoms reported Skin: No symptoms reported Hematologic/Lymphatic: No symptoms reported Neurological/Psychological: No symptoms reported -: Yes All other systems reviewed and negative Physical Exam - Vital signs Vitals: BP 157/95 H 07/01/18 19:54 Interpretation: Normal - General General appearance: Appears well, Alert In distress: None - HEENT Head: Normocephalic, Atraumatic Eyes: Normal Pupils: PERRL - Respiratory Respiratory status: No respiratory distress Chest status: Nontender Breath sounds: Normal Chest palpation: Normal - Cardiovascular Rhythm: Regular Heart sounds: Normal auscultation Murmur: No - Abdominal Inspection: Normal Distension: No distension Bowel sounds: Normal Tenderness: Nontender Organomegaly: No organomegaly - Rectal Tenderness: No Stool: Heme negative, See lab result Hemorrhoids: None Notes: Fish Net Stringer was Ms. Keyanna RN. - Back Back: Normal, Nontender - Extremities General upper extremity: Normal inspection, Nontender, Normal color, Normal ROM , Normal temperature General lower extremity: Normal inspection, Nontender, Normal color, Normal ROM , Normal temperature, Normal weight bearing. No: Alecia's sign - Neurological Neuro grossly intact: Yes Cognition: Normal Orientation: AAOx4 Jose Roberto Coma Scale Eye Opening: Spontaneous Jose Roberto Coma Scale Verbal: Oriented [place] Coma Scale Motor: Obeys Commands [place] Coma Scale Total: 15 Speech: Normal Motor strength normal: LUE, RUE, LLE, RLE Sensory: Normal - Psychological Associated symptoms: Normal affect, Normal mood - Skin Skin Temperature: Warm Skin Moisture: Dry Skin Color: Normal Course - Vital Signs Vital signs: Temp Pulse Resp BP Pulse Ox 98.0 F 16 144/82 H 96 07/01/18 23:00 07/01/18 23:00 07/01/18 22:01 07/01/18 23:00 - Laboratory Result Diagrams: 07/01/18 19:51 07/01/18 19:51 Laboratory results interpreted by me: 07/01/18 07/01/18 07/01/18 19:51 19:51 21:49 Hgb 11.8 L D Hct 35.5 L RDW 14.5 H Plt Count 145 L Potassium 3.4 L Chloride 110 H Carbon Dioxide 19 L Glucose 377 H Alkaline Phosphatase 139 H Total Protein 6.1 L Albumin 3.3 L Urine Glucose (UA) >=500 H Ur Leukocyte Esterase TRACE H - Diagnostic Test Radiology reviewed: Image reviewed, Reports reviewed - Transfer of Care Notes: 07/01/18 22:48 C. difficile diarrhea. Discharge - Discharge Clinical Impression: C. difficile colitis Diarrhea Qualifiers: Diarrhea type: presumed infectious Qualified Code(s): R19.7 - Diarrhea, unspecified Condition: Stable Disposition: HOME, SELF-CARE Instructions: Diarrhea, Nonspecific ([facility]) Additional Instructions: Please follow-up with your primary doctor tomorrow morning. Return to the emergency room if your condition worsens. Prescriptions: Metronidazole [Flagyl 500 mg Tablet] 500 mg PO Q6H #42 tablet Ondansetron [Zofran Odt 4 mg Tablet] 1 tab PO Q8H PRN #20 tab.rapdis PRN Reason: For Nausea/Vomiting Oxycodone HCl/Acetaminophen [Percocet 5-325 mg Tablet] 1 tab PO Q6H PRN #15 tablet PRN Reason: Referrals: GIUSE[facility] WHITE MD [Primary Care Provider] - Follow up as needed
[2018-07-01] MEDS ORDERED: OXYCODONE-ACETAMINOPHEN 5-325 MG TABLET PO ONE (22:52)
== END 2018-07-01 23:10 | disposition home or self-care (01) ==
LOC: ER 19:21
DX: A04.72 Enterocolitis due to Clostridium difficile, not specified as recurrent (principal); R19.7 Diarrhea, unspecified; K62.5 Hemorrhage of anus and rectum; F17.200 Nicotine dependence, unspecified, uncomplicated; I10 Essential (primary) hypertension; J44.9 Chronic obstructive pulmonary disease, unspecified; E10.9 Type 1 diabetes mellitus without complications
CPT/HCPCS: 99284; 96361; 96374; 96375; 36415; 83690; 85025; 82272; 80053; 81001; 83605; 74018; J2270; J2405; J3490; J7030

== ENCOUNTER 2018-08-04 16:10 | Emergency (ER) | payer MEDICAID ==
[2018-08-04] MEDS ORDERED: NORMAL SALINE 1000 ML 1,000 ML IV ONE ×2 (16:58→19:47)
[2018-08-04] MEDS ORDERED: VANCOMYCIN HCL INJ 500 MG VIAL PO ONE (16:59)
[2018-08-04] MEDS ORDERED: MORPHINE SULFATE 10 MG/ML INJ IV ONE (16:59)
[2018-08-04] MEDS ORDERED: ONDANSETRON HCL INJ/PF 4 MG/2 ML SDV IV ONE (16:59)
--- NOTE | 2018-08-04 17:01 | ER Document Report ---
ED Medical Screen (RME) - General Chief Complaint: Diarrhea Stated Complaint: DIARRHEA Time Seen by Provider: 08/04/18 16:52 Notes: Patient is a 62-year-old female with history of recurrent C. difficile that presents to the emergency department for chief complaint of diarrhea and abdominal pain. Patient states that she started having more diarrhea over the last 2 days, she has had 8 episodes of watery diarrhea today, consistent with her past presentations for C. difficile according to the patient, most recently she was treated about 2 months ago she states, was on oral Flagyl, she usually does better she states on oral vancomycin. ROS: Other than noted above, the 12 point review of systems was reviewed with the patient and were negative, all pertinent findings are included in the HPI. PHYSICAL EXAMINATION: Vital signs reviewed. GENERAL: Elderly female, appears uncomfortable HEAD: Atraumatic, normocephalic. EYES: Pupils equal round extraocular movements intact, conjunctiva are normal. ENT: Nares patent NECK: Normal range of motion CV: Heart rate tachycardic, regular rhythm LUNGS: No respiratory distress Musculoskeletal: Normal range of motion NEUROLOGICAL: Normal speech PSYCH: Normal mood, normal affect. MDM: Patient seen and examined for rapid initial assessment. Vital signs reviewed. A comprehensive ED assessment and evaluation of the patient, analysis of test results and completion of the medical decision making process will be conducted by additional ED providers. *Note is created using voice recognition software and may contain spelling, syntax or grammatical errors. TRAVEL OUTSIDE OF THE [place] IN LAST 30 DAYS: No - Related Data Allergies/Adverse Reactions: No Known Drug Allergies Allergy (Mild, Verified 08/04/18 16:12) Past Medical History - Social History Chew tobacco use (# tins/day): No Frequency of alcohol use: None Drug Abuse: None Family history: None - pt adopted - Past Medical History Cardiac Medical History: Reports: Hx Hypertension Denies: Hx Congestive Heart Failure, Hx DVT, Hx Heart Attack, Hx Hypercholesterolemia, Hx Pulmonary Embolism Pulmonary Medical History: Reports: Hx Bronchitis, Hx COPD, Hx Pneumonia Denies: Hx Asthma Neurological Medical History: Reports: Hx Migraine. Denies: Hx Cerebrovascular Accident, Hx Seizures Endocrine Medical History: Reports: Hx Diabetes Mellitus Type 1. Denies: Hx Diabetes Mellitus Type 2, Hx Hyperthyroidism, Hx Hypothyroidism Renal/ Medical History: Denies: Hx Peritoneal Dialysis Malignancy Medical History: Reports: Hx Ovarian Cancer, Hx Skin Cancer GI Medical History: Reports: Hx Gastroesophageal Reflux Disease, Hx Hiatal Hernia, Hx Ulcer. Denies: Hx Cirrhosis, Hx Hepatitis, Hx Pancreatitis Musculoskeltal Medical History: Reports Hx Arthritis, Reports Hx Multiple Sclerosis, Reports Hx Musculoskeletal Deformity, Reports Hx Musculoskeletal Trauma Skin Medical History: Reports Hx Psoriasis Psychiatric Medical History: Reports: Hx Anxiety, Hx Depression - Traumatic Medical History: Reports: Hx Fractures - Bilateral humerus Infectious Medical History: Reports: Hx C-Diff. Denies: Hx Hepatitis Past Surgical History: Reports: Hx Genitourinary Surgery - Bladder, Hx Orthopedic Surgery - Right wrist, Hx Tubal Ligation, Other - cataract sx bilaterally.. Denies: Hx Hysterectomy, Hx Mastectomy, Hx Open Heart Surgery, Hx Pacemaker - Immunizations Immunizations up to date: Yes Hx Diphtheria, Pertussis, Tetanus Vaccination: Yes History of Influenza Vaccine for 06/2017 - 11/2017 Season: Yes Influenza Administration Date for 06/2017 - 11/2017 Season: 06/15/17 Physical Exam - Vital signs Vitals: Temp Pulse Resp BP Pulse Ox 98.2 F 122 H 20 118/75 99 08/04/18 16:15 08/04/18 16:15 08/04/18 16:15 08/04/18 16:15 08/04/18 16:15 Course - Vital Signs Vital signs: Temp Pulse Resp BP Pulse Ox 98.2 F 122 H 20 118/75 99 08/04/18 16:15 08/04/18 16:15 08/04/18 16:15 08/04/18 16:15 08/04/18 16:15
[2018-08-04] MEDS ORDERED: HYDROCODONE/ACETAMINOPHEN 5-325 MG TABLET PO ONE (18:16)
[2018-08-04 18:24] LABS: ABSOLUTE BASOPHILS # (AUTO) 0.1 10^3/uL (0.0-0.2); ABSOLUTE EOSINOPHILS # (AUTO) 0.2 10^3/uL (0.0-0.6); ABSOLUTE LYMPHOCYTES (AUTO) 1.5 10^3/uL (0.5-4.7); ABSOLUTE MONOCYTES (AUTO) 0.5 10^3/uL (0.1-1.4); ABSOLUTE NEUT (AUTO) 4.4 10^3/uL (1.7-8.2); BASOPHILS % (AUTO) 0.8 % (0-2); EOSINOPHILS % (AUTO) 2.5 % (0-6); HEMATOCRIT 45.2 % (36.0-47.0); HEMOGLOBIN 15.1 g/dL (12.0-15.5); LYMPHOCYTES % (AUTO) 22.1 % (13-45); MEAN CORPUSCULAR HEMOGLOBIN 28.7 pg (27.0-33.4); MEAN CORPUSCULAR HGB CONC 33.4 g/dL (32.0-36.0); MEAN CORPUSCULAR VOLUME 86 fl (80-97); PLATELET COUNT 207 10^3/uL (150-450); RED BLOOD COUNT 5.26 10^6/uL (3.72-5.28); RED CELL DISTRIBUTION WIDTH 14.7 % (11.5-14.0); SEGMENTED NEUTROPHILS % (AUTO) 66.6 % (42-78); TOTAL CELLS COUNTED % (AUTO) 100 %; WHITE BLOOD COUNT 6.6 10^3/uL (4.0-10.5)
--- NOTE | 2018-08-04 18:46 | ER Document Report ---
ED General - General Chief Complaint: Diarrhea Stated Complaint: DIARRHEA Time Seen by Provider: 08/04/18 16:52 Mode of Arrival: Ambulatory Information source: Patient TRAVEL OUTSIDE OF THE [place] IN LAST 30 DAYS: No - HPI Notes: Patient is a 62-year-old diabetic insulin-dependent smoker with history of recurrent C. difficile colitis presents to the emergency department with report that 2 days ago she started up with diarrhea and crampy abdominal pain and reports her diarrhea became watery today. She reports a total of 8 episodes. She states there is been no recent change in her medications. She reports 2 months ago she was last on Flagyl. She states she has not taken any pain medication in 2 months, last taking [place] with her previous C. difficile colitis flareup. The patient reports when she has recurrences she usually responds to p.o. vancomycin. The patient is currently on Enbrel for psoriasis for the last 5 years. Patient reports no cough, congestion, chest pain, difficulty breathing. She denies any bloody diarrhea. She reports no exposures to anyone else who is been sick. - Related Data Allergies/Adverse Reactions: No Known Drug Allergies Allergy (Mild, Verified 08/04/18 16:12) Past Medical History - General Information source: Patient - Social History Smoking Status: Current Some Day Smoker Chew tobacco use (# tins/day): No Frequency of alcohol use: None Drug Abuse: None Lives with: Alone Family History: Hypertension, Other - Unknown she is adopted Patient has suicidal ideation: No Patient has homicidal ideation: No - Past Medical History Cardiac Medical History: Reports: Hx Hypertension Denies: Hx Congestive Heart Failure, Hx DVT, Hx Heart Attack, Hx Hypercholesterolemia, Hx Pulmonary Embolism Pulmonary Medical History: Reports: Hx Bronchitis, Hx COPD, Hx Pneumonia Denies: Hx Asthma Neurological Medical History: Reports: Hx Migraine. Denies: Hx Cerebrovascular Accident, Hx Seizures Endocrine Medical History: Reports: Hx Diabetes Mellitus Type 1. Denies: Hx Diabetes Mellitus Type 2, Hx Hyperthyroidism, Hx Hypothyroidism Renal/ Medical History: Denies: Hx Peritoneal Dialysis Malignancy Medical History: Reports: Hx Ovarian Cancer, Hx Skin Cancer GI Medical History: Reports: Hx Gastroesophageal Reflux Disease, Hx Hiatal Hernia, Hx Ulcer. Denies: Hx Cirrhosis, Hx Hepatitis, Hx Pancreatitis Musculoskeletal Medical History: Reports Hx Arthritis, Reports Hx Multiple Sclerosis, Reports Hx Musculoskeletal Deformity, Reports Hx Musculoskeletal Trauma Skin Medical History: Reports Hx Psoriasis Psychiatric Medical History: Reports: Hx Anxiety, Hx Depression - Traumatic Medical History: Reports: Hx Fractures - Bilateral humerus Infectious Medical History: Reports: Hx C-Diff. Denies: Hx Hepatitis Past Surgical History: Reports: Hx Genitourinary Surgery - Bladder, Hx Orthopedic Surgery - Right wrist, Hx Tubal Ligation, Other - cataract sx bilaterally.. Denies: Hx Hysterectomy, Hx Mastectomy, Hx Open Heart Surgery, Hx Pacemaker - Immunizations Immunizations up to date: Yes Hx Diphtheria, Pertussis, Tetanus Vaccination: Yes Hx Pneumococcal Vaccination: 06/15/13 Review of Systems - Review of Systems -: Yes All other systems reviewed and negative Physical Exam - Vital signs Vitals: Temp Pulse Resp BP Pulse Ox 98.2 F 122 H 20 118/75 99 08/04/18 16:15 08/04/18 16:15 08/04/18 16:15 08/04/18 16:15 08/04/18 16:15 - Notes Notes: PHYSICAL EXAMINATION: GENERAL: Well-appearing, well-nourished and in no acute distress. HEAD: Atraumatic, normocephalic. EYES: Pupils equal round and reactive to light, extraocular movements intact, conjunctiva are normal. ENT: Nares patent, oropharynx clear without exudates. Moist mucous membranes. NECK: Normal range of motion, supple without lymphadenopathy LUNGS: Breath sounds clear to auscultation bilaterally and equal. No wheezes rales or rhonchi. HEART: Regular rhythm without murmurs. Tachycardic rate of 115. ABDOMEN: Soft, nondistended abdomen. No guarding, no rebound. No masses appreciated. Diffusely tender more through the lower abdominal region. Female : deferred Musculoskeletal: Normal range of motion, no pitting or edema. No cyanosis. NEUROLOGICAL: Cranial nerves grossly intact. Normal speech, normal gait. Normal sensory, motor exams PSYCH: Normal mood, normal affect. SKIN: Warm, Dry, normal turgor, no rashes or lesions noted. Course - Re-evaluation Re-evalutation: 08/04/18 18:45 Patient was given normal saline bolus. She was given IV Zofran, morphine and p.o. vancomycin and p.o. [place]. 08/04/18 22:01 Patient had adequate relief of pain. Blood sugar was elevated at 500. Patient was given 10 units of regular insulin and a total of 2 L normal saline and repeat blood sugar came down to the 248. There is no ketoacidosis. White blood cell count was normal. C. difficile was positive. The patient states that this felt like she was early in the case of the ACDF and she felt stable for outpatient management and discharge. The patient reported her abdominal pain was significantly improved. Repeat exam showed no significant discomfort. No evidence for significant anemia or GI bleed. 08/04/18 22:02 - Vital Signs Vital signs: Temp Pulse Resp BP Pulse Ox 98.0 F 90 18 124/78 96 08/04/18 21:04 08/04/18 21:04 08/04/18 21:04 08/04/18 21:04 08/04/18 21:04 - Laboratory Result Diagrams: 08/04/18 17:56 08/04/18 17:56 Laboratory results interpreted by me: 08/04/18 08/04/18 08/04/18 17:56 17:56 19:59 RDW 14.7 H Glucose 524 H* POC Glucose 387 H AST 42 H Alkaline Phosphatase 186 H Urine Glucose (UA) Ur Leukocyte Esterase 08/04/18 08/04/18 20:24 21:12 RDW Glucose POC Glucose 248 H AST Alkaline Phosphatase Urine Glucose (UA) >=500 H Ur Leukocyte Esterase TRACE H Discharge - Discharge Clinical Impression: Clostridium difficile colitis, Hyperglycemia Condition: Stable Disposition: HOME, SELF-CARE Instructions: C. (Clostridium) Difficile Infection ([facility]), Hyperglycemia ([facility]) Additional Instructions: Watch your blood sugars closely. Return to the emergency department in case of severe pain, bloody diarrhea, fever. Prescriptions: Hydrocodone/Acetaminophen [[place] 5-325 mg Tablet] 1 tab PO Q4HP PRN #20 tablet PRN Reason: Ondansetron [Zofran Odt 4 mg Tablet] 1 tab PO Q8HP PRN #10 tab.rapdis PRN Reason: For Nausea/Vomiting Vancomycin HCl [Vancocin HCl] 125 mg PO BID #28 capsule
[2018-08-04 18:53] LABS: ALANINE AMINOTRANSFERASE 34 U/L (9-52); ALBUMIN 4.2 g/dL (3.5-5.0); ALKALINE PHOSPHATASE 186 U/L (38-126); ANION GAP 11 (5-19); ASPARTATE AMINO TRANSFERASE 42 U/L (14-36); BILIRUBIN,DIRECT 0.4 mg/dL (0.0-0.4); BILIRUBIN,TOTAL 0.7 mg/dL (0.2-1.3); BLOOD UREA NITROGEN 10 mg/dL (7-20); CALCIUM 9.7 mg/dL (8.4-10.2); CARBON DIOXIDE 27 mmol/L (22-30); CHLORIDE 101 mmol/L (98-107); LIPASE 38.2 U/L (23-300); POTASSIUM 3.6 mmol/L (3.6-5.0); SODIUM 139.3 mmol/L (137-145); TOTAL PROTEIN 7.4 g/dL (6.3-8.2)
[2018-08-04 19:05] LABS: GLUCOSE 524 mg/dL (75-110)
[2018-08-04] MEDS ORDERED: INSULIN REG, HUMAN 100 UNIT/ML 3 ML VIAL (PYX) IV ONE (19:46)
[2018-08-04 20:42] LABS: APPEARANCE,URINE SLIGHTLY-CLOUDY; BILIRUBIN,URINE NEGATIVE (NEGATIVE); COLOR,URINE YELLOW; GLUCOSE, URINE >=500 mg/dL (NEGATIVE); KETONES,URINE NEGATIVE (NEGATIVE); LEUKOCYTE ESTERASE,URINE TRACE (NEGATIVE); NITRITE,URINE NEGATIVE (NEGATIVE); PROTEIN,URINE NEGATIVE (NEGATIVE); URINE SPECIFIC GRAVITY 1.027; UROBILINOGEN,URINE NEGATIVE mg/dL (<2.0)
--- NOTE | 2018-08-04 21:10 | EKG REPORT ---
SEVERITY:- NORMAL ECG - SINUS RHYTHM : Confirmed by: Nikki Gregorio MD 04-Aug-2018 21:09:14
[2018-08-04] MEDS ORDERED: HYDROCODONE/ACETAMINOPHEN 5-325 MG (6 TAB/ER DISP) PO PRN (21:55)
[2018-08-04] MEDS ORDERED: ONDANSETRON ODT 4 MG TAB (6 TAB/ER DISP) PO PRN (21:56)
[2018-08-04 22:47] VITALS: BP 127/66
== END 2018-08-04 22:51 | disposition home or self-care (01) ==
LOC: ER 16:10
DX: A04.72 Enterocolitis due to Clostridium difficile, not specified as recurrent (principal); E10.65 Type 1 diabetes mellitus with hyperglycemia; F17.200 Nicotine dependence, unspecified, uncomplicated; I10 Essential (primary) hypertension; J44.9 Chronic obstructive pulmonary disease, unspecified; L40.9 Psoriasis, unspecified; Z79.899 Other long term (current) drug therapy; Z85.43 Personal history of malignant neoplasm of ovary; Z85.828 Personal history of other malignant neoplasm of skin
CPT/HCPCS: 93005; 99284; 96361; 96374; 96375; 36415; 87086; 82962; 83690; 85025; 80053; 81001; 87493; 83605; 93010; J2270; J1815; J2405; J3370; J7030